=== PATIENT | female | born 1950 | race Caucasian/White ===

== ENCOUNTER 2017-02-08 14:34 | Inpatient (IN) | payer BC ==
--- NOTE | 2017-02-08 14:43 | PDOC ---
History of Present Illness - General History Source: Patient Exam Limitations: No Limitations - History of Present Illness Initial Comments: 02/08/17 15:37 66 y/o F with a PMHx of HTN, diabetes, hypercholesterolemia, AFib, presents to the ED via EMS from home with generalized weakness and dehydration for a few days. Patient reports she recently went to her dentist because her teeth have been falling out. Her dentist told her she needs dentures, which caused her to have an episode of depression. She reports no appetite and has not eaten in a few days since finding out. Patient reports associated nausea and abdominal pain. She denies similar symptoms in the past. On arrival, patient was bradycardic, hypotensive and has a sugar of 50. She denies chest pain, SOB, dizziness. Denies vomiting, diarrhea, constipation. Denies urinary complaints. Denies fever or chills. <Shanice Ann - Last Filed: 02/08/17 15:48> <Simone Ku - Last Filed: 02/08/17 16:26> - General Stated Complaint: WEAKNESS Time Seen by Provider: 02/08/17 14:42 Past History <Shanice Ann - Last Filed: 02/08/17 15:48> - Past Medical History Cardiac Disorders: Yes (AFIB) Diabetes: Yes HTN: Yes Hypercholesterolemia: Yes - Psycho/Social/Smoking Cessation Hx Anxiety: No Suicidal Ideation: No Smoking Status: Yes Smoking History: Never smoked Have you smoked in the past 12 months: No Number of Cigarettes Smoked Daily: 0 Hx Alcohol Use: Yes (WINE W/DINNER) <Simone Ku - Last Filed: 02/08/17 16:26> - Past Medical History Allergies/Adverse Reactions: Allergies Allergy/AdvReac Type Severity Reaction Status Date / Time No Known Allergies Allergy Verified 02/08/17 14:46 Home Medications: Ambulatory Orders Amlodipine Besylate [Norvasc -] 5 mg PO DAILY 11/06/13 Metformin HCl [Glucophage -] 500 mg PO TID 11/06/13 Metoprolol Tartrate 25 mg PO BID 11/06/13 Rosuvastatin Calcium [Crestor] 10 mg PO HS 11/06/13 Valsartan [Diovan] 160 mg PO DAILY 11/06/13 Zolpidem Tartrate [Ambien] 10 mg PO PRN 11/06/13 Diphenoxylate HCl/Atropine [Lomotil Tablet] 1 each PO QID PRN #20 tablet MDD 4 12/14/15 Esomeprazole Magnesium [Nexium 24Hr] 0 mg PO ASDIR 12/14/15 Lorazepam [Ativan] 0.5 mg PO PRN 12/14/15 Ondansetron [Ondansetron Odt] 8 mg PO TID PRN #30 tab.rapdis MDD 3 12/14/15 Review of Systems - Review of Systems Able to Perform ROS?: Yes Comments:: 02/08/17 15:37 GENERAL/CONSTITUTIONAL: (+) generalized weakness, dehydrated, no appetite. No fever or chills. HEAD, EYES, EARS, NOSE AND THROAT: No change in vision. No ear pain or discharge. No sore throat. CARDIOVASCULAR: No chest pain or shortness of breath. RESPIRATORY: No cough, wheezing, or hemoptysis. GASTROINTESTINAL: (+) nausea, abdominal pain. No vomiting, diarrhea or constipation. GENITOURINARY: No dysuria, frequency, or change in urination. MUSCULOSKELETAL: No joint or muscle swelling or pain. No neck or back pain. SKIN: No rash NEUROLOGIC: No headache, vertigo, loss of consciousness, or change in strength/ sensation. ENDOCRINE: No increased thirst. No abnormal weight change. HEMATOLOGIC/LYMPHATIC: No anemia, easy bleeding, or history of blood clots. ALLERGIC/IMMUNOLOGIC: No hives or skin allergy. PSYCHIATRIC: (+) depressed. <Shanice Ann - Last Filed: 02/08/17 15:48> *Physical Exam - Vital Signs Last Vital Signs Temp Pulse Resp BP Pulse Ox 97.3 F L 59 L 18 66/40 96 02/08/17 14:43 02/08/17 14:43 02/08/17 14:43 02/08/17 14:43 02/08/17 14:43 - Physical Exam Comments: 02/08/17 15:37 GENERAL: Awake, alert, and fully oriented, cold, clammy HEAD: No signs of trauma EYES: PERRLA, EOMI, sclera anicteric, conjunctiva clear ENT: Auricles normal inspection, hearing grossly normal, nares patent, oropharynx clear without exudates. Dry mucosa NECK: Normal ROM, supple, no lymphadenopathy, JVD, or masses LUNGS: Breath sounds equal, clear to auscultation bilaterally. No wheezes, and no crackles HEART: Bradycardic rate and rhythm, normal S1 and S2, no murmurs, rubs or gallops ABDOMEN: Soft, nontender, normoactive bowel sounds. No guarding, no rebound. No masses EXTREMITIES: 2+ radial pulses bilaterally. Normal range of motion, no edema. No clubbing or cyanosis. No cords, erythema, or tenderness NEUROLOGICAL: Cranial nerves II through XII grossly intact. Normal speech. SKIN: Warm, Dry, normal turgor, no rashes or lesions noted. <Shanice Ann - Last Filed: 02/08/17 15:48> ED Treatment Course - LABORATORY CBC & Chemistry Diagram: 02/08/17 15:10 02/08/17 15:10 - ADDITIONAL ORDERS Additional order review: Laboratory Results 02/08/17 02/08/17 15:20 15:06 VBG pH 7.19 L* POC VBG pCO2 30.1 L POC VBG pO2 68.4 H Mixed VBG HCO3 11.0 L* POC Glucometer 50.17059 02/08/17 02/08/17 15:10 15:06 RBC 3.72 MCV 92.5 MCHC 33.3 RDW 13.3 MPV 10.1 Neutrophils % 65.3 Lymphocytes % 26.8 D Monocytes % 6.9 Eosinophils % 0.7 Basophils % 0.3 POC Glucometer 50.69167 - RADIOLOGY Radiograph Interpretation: 02/08/17 15:48 Chest X-Ray Reported by Dr. Urvashi Lagos Impression: No evidence of airspace consolidation, pulmonary vascular congestion or pleural effusion. - Medications Given in the ED: ED Medications Discontinued Medications Generic Name Dose Route Start Last Admin Trade Name Freq PRN Reason Stop Dose Admin Dextrose 50 gm 02/08/17 15:08 02/08/17 15:08 D50w (Vial) - IVPUSH 02/08/17 15:09 50 gm NOW ONE Administration <Shanice Ann - Last Filed: 02/08/17 15:48> - LABORATORY CBC & Chemistry Diagram: 02/08/17 15:10 02/08/17 15:10 <Simone Ku - Last Filed: 02/08/17 16:26> Medical Decision Making - Medical Decision Making 02/08/17 16:18 Volume Depleted........ No Hx of Infxn... No Fever... Chemistries Pending but CBC normal WBC no Left Shift CXR Clean Urine without Infxn D/W Dr Chapman D/W Dr Velasco ---> Solucortef one time dose. Admit to ICU. D/W Dr English - <Simone Ku - Last Filed: 02/08/17 16:26> *DC/Admit/Observation/Transfer - Attestations Scribe Attestion: 02/08/17 15:38 Documentation prepared by Shanice Ann, acting as medical dosimetrist for Simone Ku DO. <Shanice Ann - Last Filed: 02/08/17 15:48> - Discharge Dispostion Admit: Yes - Attestations Physician Attestion: 02/08/17 14:43 I, Dr. Simone Ku, attest that this document has been prepared under my direction and personally reviewed by me in its entirety. I further attest, that it accurately reflects all work, treatment, procedures and medical decision -making performed by me. <Simone Ku - Last Filed: 02/08/17 16:26> Diagnosis at time of Disposition: Volume depletion, Lactic acidosis, Hypoglycemia Hypotension Qualifiers: Hypotension type: unspecified hypotension type Qualified Code(s): I95.9 - Hypotension, unspecified - Discharge Dispostion Condition at time of disposition: Improved
[2017-02-08] MEDS ORDERED: SODIUM CHLORIDE 500 ML IV STA ×3 (14:48→16:04)
[2017-02-08] MEDS ORDERED: DEXTROSE 50%-WATER - 25 GM/50 ML VIAL IVPUSH ONE (15:08)
[2017-02-08] MEDS ORDERED: DEXTROSE 50%-WATER 50 ML DISP.SYRIN ONE (15:09)
[2017-02-08 15:33] LABS: BASOPHIL 0.3 % (0-2.0); EOSINOPHIL 0.7 % (0-4.5); MCH 30.9 pg (25.7-33.7); MCHC 33.3 g/dl (32.0-36.0); MEAN CELL VOLUME 92.5 fl (80-96); MEAN PLT VOLUME 10.1 fl (7.5-11.1); NEUTROPHILS 65.3 % (42.8-82.8); PLATELET COUNT 215 K/MM3 (134-434); RDW 13.3 % (11.6-15.6); WHITE BLOOD COUNT 9.7 K/mm3 (4.0-10.0)
[2017-02-08 15:34] LABS: VENOUS PH 7.19 (7.32-7.42)
[2017-02-08 15:48] LABS: INR 1.06 (0.82-1.09); PROTHROMBIN TIME (PATIENT) 11.7 SEC (9.98-11.88)
[2017-02-08 15:59] LABS: ALBUMIN 3.6 g/dl (3.4-5.0); ANION GAP 30 (8-16); CALCIUM 8.4 mg/dL (8.5-10.1); CO2 10 mmol/L (21-32); CREATININE 2.9 mg/dL (0.55-1.02); SGOT/AST 65 U/L (15-37); SGPT/ALT 59 U/L (12-78)
[2017-02-08 16:02] LABS: URINE APPEARANCE CLOUDY; URINE BILIRUBIN NEGATIVE (NEGATIVE); URINE BLOOD 2+ (NEGATIVE); URINE COLOR YELLOW; URINE GLUCOSE (UA) NEGATIVE (NEGATIVE); URINE KETONE NEGATIVE (NEGATIVE); URINE LEUK ESTERASE NEGATIVE (NEGATIVE); URINE NITRITE NEGATIVE (NEGATIVE); URINE UROBILINOGEN NEGATIVE mg/dL (0.2-1.0)
[2017-02-08 16:03] LABS: ALK PHOS 90 U/L (45-117); BILIRUBIN,TOTAL 0.7 mg/dL (0.2-1.0); CPK 215 IU/L (26-192); TROPONIN I < 0.02 ng/ml (0.00-0.05)
[2017-02-08 16:07] LABS: URINE PROTEIN 1+ (NEGATIVE)
[2017-02-08 16:08] LABS: URINE BACTERIA RARE /hpf (NONE SEEN); URINE HYALINE CAST 3 /lpf; URINE WBC 1 /hpf (3-5)
[2017-02-08 16:18] LABS: GLUCOSE,RANDOM 27 mg/dL (74-106)
[2017-02-08] MEDS ORDERED: SODIUM CHLORIDE 1,000 ML IV STA (16:29)
[2017-02-08] MEDS ORDERED: HYDROCORTISONE SOD SUCCINATE 100 MG/2 ML VIAL IVPUSH ONE (16:29)
[2017-02-08] MEDS ORDERED: HYDROCORTISONE SOD SUCCINATE 2 ML ONE (16:41)
[2017-02-08 18:10] VITALS: BMI 29.6
[2017-02-08] MEDS ORDERED: ONDANSETRON 4 MG/2 ML VIAL IVPUSH PRN (21:38)
[2017-02-08] MEDS ORDERED: ZOLPIDEM TARTRATE 5 MG TABLET PO PRN (21:38)
[2017-02-08] MEDS ORDERED: DEXTROSE 5%-NORMAL SALINE 1,000 ML IV SCH (21:45)
[2017-02-08] MEDS: HEPARIN NA (PORCINE) 5,000 UNITS/ML 1ML VIAL SQ SCH (22:05)
--- NOTE | 2017-02-08 22:19 | CONSULT ---
Consult Consult Specialty:: Pulm/CCM Reason for Consultation:: GREGORIO, lactate - History of Present Illness Chief Complaint: weakness History of Present Illness: This is a 66 yo woman HTN, DM: metformin, paroxysmal afib, IBS/UC who present to the ED after 2-3 of decreased po intake, nausea and diarrhea. Patient states over the last few days she hasn't felt like herself and has had persistent nausea and mild diarrhea. She states this is similar to previous flares of her IBS. During this time she has not been eating or drinking but still taking her medications including metformin, lopressor and valsartan. On day of admission she felt very weak and activated EMS. In the ED she was found to be hypoglycemic (50), hypotensive (80/40s) w/ lactic acidosis 9.2. She was given IV fluids. Labs also c/w GREGORIO (SCr 2.9) with AGMA (30). Beside TTE: normal , no DVT seen. CXR w/o focal consolidation, U/A negative for infection. - History Source History Provided By: Patient, Medical Record Limitations to Obtaining History: No Limitations - Past Medical History Gastrointestinal: Yes: Irritable Bowel Disease, Ulcerative Colitis - Alcohol/Substance Use Hx Alcohol Use: Yes (WINE W/DINNER) - Smoking History Smoking history: Never smoked Have you smoked in the past 12 months: No Aproximately how many cigarettes per day: 0 Home Medications - Allergies Allergies/Adverse Reactions: Allergies Allergy/AdvReac Type Severity Reaction Status Date / Time No Known Allergies Allergy Verified 02/08/17 14:46 - Home Medications Home Medications: Ambulatory Orders Metformin HCl [Glucophage -] 500 mg PO TID 11/06/13 Metoprolol Tartrate 25 mg PO BID 11/06/13 Rosuvastatin Calcium [Crestor] 10 mg PO HS 11/06/13 Valsartan [Diovan] 160 mg PO DAILY 11/06/13 Zolpidem Tartrate [Ambien] 10 mg PO PRN 11/06/13 Lorazepam [Ativan] 0.5 mg PO PRN 12/14/15 Family Disease History - Family Disease History Family History: Unremarkable Review of Systems - Review of Systems Constitutional: reports: Loss of Appetite, Malaise, Weakness Cardiovascular: reports: No Symptoms Respiratory: reports: No Symptoms Gastrointestinal: reports: Diarrhea, Nausea Genitourinary: reports: Frequency (decreased) Neurological: reports: Headache Endocrine: reports: No Symptoms Physical Exam Vital Signs: Vital Signs Temperature 97.7 F 02/08/17 17:53 Pulse Rate 75 02/08/17 17:53 Respiratory Rate 14 02/08/17 17:53 Blood Pressure 103/57 02/08/17 17:53 O2 Sat by Pulse Oximetry (%) 99 02/08/17 17:37 Current Medications Heparin Sodium (Porcine) (Heparin -) 5,000 unit SQ TID LESLY Last Admin: 02/08/17 22:05 Dose: 5,000 unit Dextrose/Sodium Chloride (D5-Ns -) 1,000 mls @ 100 mls/hr IV ASDIR LESLY Last Admin: 02/08/17 22:05 Dose: 100 mls/hr Ondansetron HCl (Zofran Injection) 4 mg IVPUSH Q6H PRN PRN Reason: NAUSEA AND/OR VOMITING Last Admin: 02/08/17 22:05 Dose: 4 mg Zolpidem Tartrate (Ambien -) 5 mg PO HS PRN PRN Reason: INSOMNIA Last Admin: 02/08/17 22:05 Dose: 5 mg Constitutional: Yes: Well Nourished, Calm Eyes: Yes: EOM Intact HENT: Yes: Normocephalic Neck: Yes: Trachea Midline Cardiovascular: Yes: Regular Rate and Rhythm, S1, S2 Respiratory: Yes: CTA Bilaterally Gastrointestinal: Yes: Normal Bowel Sounds, Soft, Abdomen, Obese Musculoskeletal: Yes: WNL Extremities: Yes: WNL Edema: No Neurological: Yes: WNL, Alert, Oriented, Cran Nerves II-XII Intact ...Motor Strength: WNL Psychiatric: Yes: Oriented Labs: CBCD WBC 9.7 K/mm3 (4.0-10.0) D 02/08/17 15:10 RBC 3.72 M/mm3 (3.60-5.2) 02/08/17 15:10 Hgb 11.5 GM/dL (10.7-15.3) D 02/08/17 15:10 Hct 34.4 % (32.4-45.2) 02/08/17 15:10 MCV 92.5 fl (80-96) 02/08/17 15:10 MCHC 33.3 g/dl (32.0-36.0) 02/08/17 15:10 RDW 13.3 % (11.6-15.6) 02/08/17 15:10 Plt Count 215 K/MM3 (134-434) 02/08/17 15:10 MPV 10.1 fl (7.5-11.1) 02/08/17 15:10 CMP Sodium 135 mmol/L (136-145) L 02/08/17 15:10 Potassium 3.8 mmol/L (3.5-5.1) 02/08/17 15:10 Chloride 95 mmol/L (98-107) L 02/08/17 15:10 Carbon Dioxide 10 mmol/L (21-32) L D 02/08/17 15:10 Anion Gap 30 (8-16) H 02/08/17 15:10 BUN 49 mg/dL (7-18) H D 02/08/17 15:10 Creatinine 2.9 mg/dL (0.55-1.02) H D 02/08/17 15:10 Creat Clearance w eGFR 16.29 (>60) 02/08/17 15:10 Random Glucose 27 mg/dL (74-106) L* D 02/08/17 15:10 Calcium 8.4 mg/dL (8.5-10.1) L 02/08/17 15:10 Total Bilirubin 0.7 mg/dL (0.2-1.0) 02/08/17 15:10 AST 65 U/L (15-37) H D 02/08/17 15:10 ALT 59 U/L (12-78) D 02/08/17 15:10 Alkaline Phosphatase 90 U/L (45-117) D 02/08/17 15:10 Total Protein 7.0 g/dl (6.4-8.2) 02/08/17 15:10 Albumin 3.6 g/dl (3.4-5.0) 02/08/17 15:10 CARDIAC ENZYMES Creatine Kinase 215 IU/L (26-192) H 02/08/17 15:10 Troponin I < 0.02 ng/ml (0.00-0.05) 02/08/17 15:10 Laboratory Tests 02/08/17 02/08/17 02/08/17 15:10 15:10 19:50 Lactic Acid 9.1 H* 7.9 H* B-Natriuretic Peptide 4.92 H Imaging - Results Chest X-ray: Report Reviewed, Image Reviewed Problem List - Problems (1) Hypoglycemia Code(s): E16.2 - HYPOGLYCEMIA, UNSPECIFIED (2) Hypotension Code(s): I95.9 - HYPOTENSION, UNSPECIFIED Qualifiers: Hypotension type: unspecified hypotension type Qualified Code(s): I95.9 - Hypotension, unspecified (3) Lactic acidosis Code(s): E87.2 - ACIDOSIS (4) Volume depletion Code(s): E86.9 - VOLUME DEPLETION, UNSPECIFIED (5) IBS (irritable bowel syndrome) Code(s): K58.9 - IRRITABLE BOWEL SYNDROME WITHOUT DIARRHEA Assessment/Plan 66 yo woman with HTN, DM, paroxysmal Afib, IBS who presented with weakness found to have GREGORIO, hypoglycemia and lactic acidosis. Patient does not appear infected at this time. Likely flare of IBS c/b dehydrated from poor PO intake w / hypotension, hypoglycemia and lactic acidemia in the setting of continued medications (c/f medication related lactate and hypoglycemia: metformin). GREGORIO likely prerenal +/- medication effect: losartan -no indication for ABX at this time -IV fluids w/ d5 tonight -trend lactate -renal dose all medications -urine lytes -zofran for nausea -cont home ambien -hold antihypertensives -DVT prophylaxis Boerem ACNP Pulm/CCM CCT: 35m
--- NOTE | 2017-02-08 23:58 | CONSULT ---
Consult Consult Specialty:: endocrine Referred by:: Reason for Consultation:: hypoadrenalism/addisons - History of Present Illness Chief Complaint: weakness low bp History of Present Illness: 66 y/o F with a PMHx of HTN, diabetes, hypercholesterolemia, AFib, presents to the ED via EMS from home with generalized weakness and dehydration for a few days. Patient reports she recently went to her dentist because her teeth have been falling out. Her dentist told her she needs dentures, which caused her to have an episode of depression. She reports poor appetite denies history of thyroid problem,salt craving or vomiting - History Source History Provided By: Patient - Past Medical History Gastrointestinal: Yes: Irritable Bowel Disease, Ulcerative Colitis - Alcohol/Substance Use Hx Alcohol Use: Yes (WINE W/DINNER) - Smoking History Smoking history: Never smoked Have you smoked in the past 12 months: No Aproximately how many cigarettes per day: 0 Home Medications - Allergies Allergies/Adverse Reactions: Allergies Allergy/AdvReac Type Severity Reaction Status Date / Time No Known Allergies Allergy Verified 02/08/17 14:46 - Home Medications Home Medications: Ambulatory Orders Metformin HCl [Glucophage -] 500 mg PO TID 11/06/13 Metoprolol Tartrate 25 mg PO BID 11/06/13 Rosuvastatin Calcium [Crestor] 10 mg PO HS 11/06/13 Valsartan [Diovan] 160 mg PO DAILY 11/06/13 Zolpidem Tartrate [Ambien] 10 mg PO PRN 11/06/13 Lorazepam [Ativan] 0.5 mg PO PRN 12/14/15 Review of Systems - Review of Systems Constitutional: reports: Lethargy, Weakness Eyes: reports: No Symptoms HENT: reports: Throat Pain, Toothache Neck: reports: No Symptoms Cardiovascular: reports: Shortness of Breath Respiratory: reports: Exercise Intolerance, SOB on Exertion Gastrointestinal: reports: Bloating, Nausea Genitourinary: reports: No Symptoms Breasts: reports: No Symptoms Reported Musculoskeletal: reports: No Symptoms Integumentary: reports: No Symptoms Neurological: reports: No Symptoms Endocrine: reports: No Symptoms Hematology/Lymphatic: reports: No Symptoms Physical Exam Vital Signs: Vital Signs Temperature 97.6 F 02/08/17 22:00 Pulse Rate 80 02/08/17 22:00 Respiratory Rate 16 02/08/17 22:00 Blood Pressure 95/64 02/08/17 22:00 O2 Sat by Pulse Oximetry (%) 99 02/08/17 20:46 Constitutional: Yes: Anxious Eyes: Yes: EOM Intact HENT: Yes: Normocephalic Neck: Yes: Trachea Midline Cardiovascular: Yes: Regular Rate and Rhythm Respiratory: Yes: CTA Bilaterally Gastrointestinal: Yes: Normal Bowel Sounds, Hyperactive Bowel Sounds ...Rectal Exam: Yes: Deferred Renal/: Yes: WNL Breast(s): Yes: WNL Musculoskeletal: Yes: WNL Extremities: Yes: WNL Edema: No Peripheral Pulses WNL: Yes Neurological: Yes: Alert, Oriented Psychiatric: Yes: Alert, Oriented Problem List - Problems (1) Hypoglycemia Code(s): E16.2 - HYPOGLYCEMIA, UNSPECIFIED (2) Hypotension Code(s): I95.9 - HYPOTENSION, UNSPECIFIED Qualifiers: Hypotension type: unspecified hypotension type Qualified Code(s): I95.9 - Hypotension, unspecified (3) IBS (irritable bowel syndrome) Code(s): K58.9 - IRRITABLE BOWEL SYNDROME WITHOUT DIARRHEA (4) Volume depletion Code(s): E86.9 - VOLUME DEPLETION, UNSPECIFIED (5) Abdominal pain Code(s): R10.9 - UNSPECIFIED ABDOMINAL PAIN Qualifiers: Abdominal location: generalized Qualified Code(s): R10.84 - Generalized abdominal pain (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 - PRIMARY ADRENOCORTICAL INSUFFICIENCY Assessment/Plan Current Active Problems Hypoglycemia (Acute) Hypotension (Acute) IBS (irritable bowel syndrome) (Acute) Lactic acidosis (Acute) Volume depletion (Acute) ruba hypoadrenalism addisons Abnormal Lab Results 02/08/17 02/08/17 02/08/17 15:10 15:10 15:20 VBG pH 7.19 L* POC VBG pCO2 30.1 L POC VBG pO2 68.4 H Mixed VBG HCO3 11.0 L* Sodium 135 L Chloride 95 L Carbon Dioxide 10 L D Anion Gap 30 H BUN 49 H D Creatinine 2.9 H D Random Glucose 27 L* D Lactic Acid 9.1 H* Calcium 8.4 L AST 65 H D Creatine Kinase 215 H CK-MB (CK-2) 4.440 H B-Natriuretic Peptide 2054.92 H Urine Protein Urine Blood Acetone, Qual 02/08/17 02/08/17 02/08/17 15:39 16:06 19:50 VBG pH POC VBG pCO2 POC VBG pO2 Mixed VBG HCO3 Sodium Chloride Carbon Dioxide Anion Gap BUN Creatinine Random Glucose Lactic Acid 7.9 H* Calcium AST Creatine Kinase CK-MB (CK-2) B-Natriuretic Peptide Urine Protein 1+ H D Urine Blood 2+ H Acetone, Qual Positive small 1+ H Laboratory Results - last 24 hr 02/08/17 02/08/17 02/08/17 15:06 15:10 15:10 WBC 9.7 D RBC 3.72 Hgb 11.5 D Hct 34.4 MCV 92.5 MCH 30.9 MCHC 33.3 RDW 13.3 Plt Count 215 MPV 10.1 Neutrophils % 65.3 Lymphocytes % 26.8 D Monocytes % 6.9 Eosinophils % 0.7 Basophils % 0.3 INR 1.06 VBG pH POC VBG pCO2 POC VBG pO2 Mixed VBG HCO3 Sodium Potassium Chloride Carbon Dioxide Anion Gap BUN Creatinine Creat Clearance w eGFR POC Glucometer 50.04077 Random Glucose Lactic Acid Calcium Total Bilirubin AST ALT Alkaline Phosphatase Creatine Kinase Creatine Kinase Index CK-MB (CK-2) Troponin I B-Natriuretic Peptide Total Protein Albumin Lipase TSH Urine Color Urine Appearance Urine pH Ur Specific [place] Urine Protein Urine Glucose (UA) Urine Ketones Urine Blood Urine Nitrite Urine Bilirubin Urine Urobilinogen Ur Leukocyte Esterase Urine RBC Urine WBC Urine Bacteria Hyaline Casts Acetone, Qual 02/08/17 02/08/17 02/08/17 15:10 15:10 15:20 WBC RBC Hgb Hct MCV MCH MCHC RDW Plt Count MPV Neutrophils % Lymphocytes % Monocytes % Eosinophils % Basophils % INR VBG pH 7.19 L* POC VBG pCO2 30.1 L POC VBG pO2 68.4 H Mixed VBG HCO3 11.0 L* Sodium 135 L Potassium 3.8 Chloride 95 L Carbon Dioxide 10 L D Anion Gap 30 H BUN 49 H D Creatinine 2.9 H D Creat Clearance w eGFR 16.29 POC Glucometer Random Glucose 27 L* D Lactic Acid 9.1 H* Calcium 8.4 L Total Bilirubin 0.7 AST 65 H D ALT 59 D Alkaline Phosphatase 90 D Creatine Kinase 215 H Creatine Kinase Index 2.0 CK-MB (CK-2) 4.440 H Troponin I < 0.02 B-Natriuretic Peptide 2054.92 H Total Protein 7.0 Albumin 3.6 Lipase 142 TSH Urine Color Urine Appearance Urine pH Ur Specific [place] Urine Protein Urine Glucose (UA) Urine Ketones Urine Blood Urine Nitrite Urine Bilirubin Urine Urobilinogen Ur Leukocyte Esterase Urine RBC Urine WBC Urine Bacteria Hyaline Casts Acetone, Qual 02/08/17 02/08/17 02/08/17 15:39 16:06 18:29 WBC RBC Hgb Hct MCV MCH MCHC RDW Plt Count MPV Neutrophils % Lymphocytes % Monocytes % Eosinophils % Basophils % INR VBG pH POC VBG pCO2 POC VBG pO2 Mixed VBG HCO3 Sodium Potassium Chloride Carbon Dioxide Anion Gap BUN Creatinine Creat Clearance w eGFR POC Glucometer 72.08480 Random Glucose Lactic Acid Calcium Total Bilirubin AST ALT Alkaline Phosphatase Creatine Kinase Creatine Kinase Index CK-MB (CK-2) Troponin I B-Natriuretic Peptide Total Protein Albumin Lipase TSH Urine Color Yellow Urine Appearance Cloudy Urine pH 5.0 Ur Specific [place] 1.015 Urine Protein 1+ H D Urine Glucose (UA) Negative Urine Ketones Negative Urine Blood 2+ H Urine Nitrite Negative Urine Bilirubin Negative Urine Urobilinogen Negative Ur Leukocyte Esterase Negative Urine RBC None Urine WBC 1 Urine Bacteria Rare Hyaline Casts 3 Acetone, Qual Positive small 1+ H 02/08/17 02/08/17 02/08/17 19:50 19:50 20:26 WBC RBC Hgb Hct MCV MCH MCHC RDW Plt Count MPV Neutrophils % Lymphocytes % Monocytes % Eosinophils % Basophils % INR VBG pH POC VBG pCO2 POC VBG pO2 Mixed VBG HCO3 Sodium Potassium Chloride Carbon Dioxide Anion Gap BUN Creatinine Creat Clearance w eGFR POC Glucometer 84.62429 Random Glucose Lactic Acid 7.9 H* Calcium Total Bilirubin AST ALT Alkaline Phosphatase Creatine Kinase Creatine Kinase Index CK-MB (CK-2) Troponin I B-Natriuretic Peptide Total Protein Albumin Lipase TSH 0.44 Urine Color Urine Appearance Urine pH Ur Specific [place] Urine Protein Urine Glucose (UA) Urine Ketones Urine Blood Urine Nitrite Urine Bilirubin Urine Urobilinogen Ur Leukocyte Esterase Urine RBC Urine WBC Urine Bacteria Hyaline Casts Acetone, Qual 02/08/17 22:18 WBC RBC Hgb Hct MCV MCH MCHC RDW Plt Count MPV Neutrophils % Lymphocytes % Monocytes % Eosinophils % Basophils % INR VBG pH POC VBG pCO2 POC VBG pO2 Mixed VBG HCO3 Sodium Potassium Chloride Carbon Dioxide Anion Gap BUN Creatinine Creat Clearance w eGFR POC Glucometer 104.65498 Random Glucose Lactic Acid Calcium Total Bilirubin AST ALT Alkaline Phosphatase Creatine Kinase Creatine Kinase Index CK-MB (CK-2) Troponin I B-Natriuretic Peptide Total Protein Albumin Lipase TSH Urine Color Urine Appearance Urine pH Ur Specific [place] Urine Protein Urine Glucose (UA) Urine Ketones Urine Blood Urine Nitrite Urine Bilirubin Urine Urobilinogen Ur Leukocyte Esterase Urine RBC Urine WBC Urine Bacteria Hyaline Casts Acetone, Qual impression bilateral adrenal nodules r/o addisons ck cosyntropin stim test cosyntropin .25mc ivpush then draw cortisol 30 and 60 min post iv push ck acth,
[2017-02-09] MEDS ORDERED: COSYNTROPIN 0.25 MG VIAL IVPUSH ONE (00:15)
[2017-02-09 05:49] LABS: MCH 31.6 pg (25.7-33.7); MCHC 34.7 g/dl (32.0-36.0); MEAN CELL VOLUME 91.1 fl (80-96); MEAN PLT VOLUME 9.6 fl (7.5-11.1); PLATELET COUNT 187 K/MM3 (134-434); RDW 13.5 % (11.6-15.6); WHITE BLOOD COUNT 7.6 K/mm3 (4.0-10.0)
[2017-02-09] MEDS: HEPARIN NA (PORCINE) 5,000 UNITS/ML 1ML VIAL SQ SCH (06:18)
[2017-02-09] MEDS: INSULIN SLIDING SCALE (NOVOLOG) 1 VIAL SQ SCH ×2 (06:19→12:01)
[2017-02-09 06:22] LABS: ALBUMIN 3.8 g/dl (3.4-5.0); ANION GAP 19 (8-16); CO2 17 mmol/L (21-32); GLUCOSE,RANDOM 191 mg/dL (74-106)
[2017-02-09 06:25] LABS: ALK PHOS 91 U/L (45-117); BILIRUBIN,TOTAL 0.8 mg/dL (0.2-1.0); CALCIUM 7.5 mg/dL (8.5-10.1); CHOLESTEROL 151 mg/dL (50-200); SGOT/AST 60 U/L (15-37); SGPT/ALT 61 U/L (12-78); TOT PROT 6.9 g/dl (6.4-8.2)
[2017-02-09 06:43] VITALS: TEMP 97.5
--- NOTE | 2017-02-09 08:48 | PN ---
Physical Exam: 24H: AG is closing, lactic acid downtrending Urine studies FeNA 1.5% (intrinsic) SUBJECTIVE: Patient seen and examined in the ICU. Lying comfortable in bed, eating breakfast. No nausea, vomiting, chest pain or sob. OBJECTIVE: Vital Signs Period Temp Pulse Resp BP Sys/Rodríguez Pulse Ox Last 24 Hr 97.4 F-97.7 F 68-88 14-21 88-134/51-77 99-99 Intake & Output 02/06/17 02/07/17 02/08/17 02/09/17 23:59 23:59 23:59 23:59 Intake Total 1440 870 Balance 1440 870 Weight 75.863 kg 73.663 kg GENERAL: The patient is awake, alert, and fully oriented, in no acute distress. EYES: sclera anicteric, conjunctiva clear ENT: poor dentition, moist mucous membranes LUNGS: CTAB HEART: rrr, normal s1/s2, no murmur, rub or gallop ABDOMEN: Soft, diffuse tenderness to deep palpation EXTREMITIES: wwp, 2+ DP pulses, no LE edema CBC, BMP 02/09/17 05:00 02/09/17 05:00 Hepatic Panel Total Bilirubin 0.8 mg/dL (0.2-1.0) 02/09/17 05:00 AST 60 U/L (15-37) H 02/09/17 05:00 ALT 61 U/L (12-78) 02/09/17 05:00 Alkaline Phosphatase 91 U/L (45-117) 02/09/17 05:00 Albumin 3.8 g/dl (3.4-5.0) 02/09/17 05:00 Urine Test Results Urine Color Yellow 02/08/17 15:39 Urine Appearance Cloudy 02/08/17 15:39 Urine pH 5.0 (5.0-8.0) 02/08/17 15:39 Ur Specific [place] 1.015 (1.005-1.025) 02/08/17 15:39 Urine Protein 90 mg/dl 02/09/17 00:02 Urine Glucose (UA) Negative (NEGATIVE) 02/08/17 15:39 Urine Ketones Negative (NEGATIVE) 02/08/17 15:39 Urine Blood 2+ (NEGATIVE) H 02/08/17 15:39 Urine Nitrite Negative (NEGATIVE) 02/08/17 15:39 Urine Bilirubin Negative (NEGATIVE) 02/08/17 15:39 Ur Leukocyte Esterase Negative (NEGATIVE) 02/08/17 15:39 Urine RBC None /hpf (0-3) 02/08/17 15:39 Urine WBC 1 /hpf (3-5) 02/08/17 15:39 Urine Bacteria Rare /hpf (NONE SEEN) 02/08/17 15:39 01/08/13 01/09/13 11/06/13 16:00 10:40 15:30 Creatinine 1.2 0.9 D 0.8 12/14/15 02/08/17 02/09/17 10:15 15:10 05:00 Creatinine 1.8 H D 2.9 H D 2.0 H D Active Medications Heparin Sodium (Porcine) (Heparin -) 5,000 unit SQ TID [facility] Last Admin: 02/09/17 06:18 Dose: 5,000 unit Dextrose/Sodium Chloride (D5-Ns -) 1,000 mls @ 100 mls/hr IV ASDIR [facility] Last Admin: 02/08/17 22:05 Dose: 100 mls/hr Insulin Aspart (Novolog Vial Sliding Scale -) 1 vial SQ [facility] PRN Reason: Protocol Last Admin: 02/09/17 06:19 Dose: 4 units Ondansetron HCl (Zofran Injection) 4 mg IVPUSH Q6H PRN PRN Reason: NAUSEA AND/OR VOMITING Last Admin: 02/08/17 22:05 Dose: 4 mg Zolpidem Tartrate (Ambien -) 5 mg PO HS PRN PRN Reason: INSOMNIA Last Admin: 02/08/17 22:05 Dose: 5 mg ASSESSMENT/PLAN: 66yo woman with PMH of HTN, DM, paroxysmal Afib, IBS who presents with hypoglycemia, lactic acidosis, and GREGORIO vs acute on CKD. #Hypotension A: patient off pressors, HD stable -Continue IVF #Lactic acidosis -Trend lactic acid #GREGORIO vs acute on CKD A: Cr is close to baseline -Continue IVF -Trend Cr #Hypoglycemia A:Blood glucose corrected -ISS -BGM ACHS #FEN -IVF -monitor lytes -diabetic diet as tolerated #PPX -DVT 5000U SQ TID d/w Dr. Aimna Saini, PGY-1 Visit type - Emergency Visit Emergency Visit: No - New Patient This patient is new to me today: Yes Date on this admission: 02/09/17 - Critical Care Critical Care patient: No Total Critical Care Time (in minutes): 35 Critical Care Statement: The care of this patient involved high complexity decision making to prevent further life threatening deterioration of the patient 's condition and/or to evaluate & treat vital organ system(s) failure or risk of failure.
--- NOTE | 2017-02-09 09:03 | EKG ---
Test Reason : Blood Pressure : / mmHG Vent. Rate : 058 BPM Atrial Rate : 058 BPM P-R Int : 162 ms QRS Dur : 096 ms QT Int : 520 ms P-R-T Axes : 077 091 085 degrees QTc Int : 510 ms SINUS BRADYCARDIA RIGHTWARD AXIS PROLONGED QT ABNORMAL ECG WHEN COMPARED WITH ECG OF 14-DEC-2015 10:01, QT HAS LENGTHENED Confirmed by RADHA RICHARDSON MD ([id number]) on 02/09/2017 9:03:01 AM Referred By: Confirmed By:RADHA RICHARDSON MD
[2017-02-09 10:34] VITALS: BP 136/74; PULSE 88
--- NOTE | 2017-02-09 10:35 | HP ---
Admitting History and Physical - Primary Care Physician PCP: Shan Nino - Admission Chief Complaint: FATIGUE/NAUSEA/VOMITING,HYPOGLYCEMIA History of Present Illness: 66 y/o F with a PMHx of HTN, diabetes, hypercholesterolemia, AFib, presents to the ED via EMS from home with generalized weakness and dehydration for a few days. Patient reports she recently went to her dentist because her teeth have been falling out. Her dentist told her she needs dentures, which caused her to have an episode of depression. She reports no appetite and has not eaten in a few days since finding out. Patient reports associated nausea and abdominal pain. She denies similar symptoms in the past. On arrival, patient was bradycardic, hypotensive and has a sugar of 50. She denies chest pain, SOB, dizziness. Denies vomiting, diarrhea, constipation. Denies urinary complaints. Denies fever or chills. History Source: Patient, Medical Record, Transfer Record Limitations to Obtaining History: Clinical Condition - Past Medical History Gastrointestinal: Yes: Irritable Bowel Disease, Ulcerative Colitis - Smoking History Smoking history: Never smoked Have you smoked in the past 12 months: No Aproximately how many cigarettes per day: 0 - Alcohol/Substance Use Hx Alcohol Use: Yes (WINE W/DINNER) Home Medications - Allergies Allergies/Adverse Reactions: Allergies Allergy/AdvReac Type Severity Reaction Status Date / Time No Known Allergies Allergy Verified 02/08/17 14:46 - Home Medications Home Medications: Ambulatory Orders Metformin HCl [Glucophage -] 500 mg PO TID 11/06/13 Metoprolol Tartrate 25 mg PO BID 11/06/13 Rosuvastatin Calcium [Crestor] 10 mg PO HS 11/06/13 Valsartan [Diovan] 160 mg PO DAILY 11/06/13 Zolpidem Tartrate [Ambien] 10 mg PO PRN 11/06/13 Lorazepam [Ativan] 0.5 mg PO PRN 12/14/15 Review of Systems - Review of Systems Constitutional: reports: Loss of Appetite Eyes: reports: No Symptoms HENT: reports: No Symptoms Neck: reports: No Symptoms Cardiovascular: reports: No Symptoms Respiratory: reports: No Symptoms Gastrointestinal: reports: No Symptoms Genitourinary: reports: No Symptoms Musculoskeletal: reports: Muscle Weakness Integumentary: reports: No Symptoms Neurological: reports: No Symptoms Endocrine: reports: No Symptoms Hematology/Lymphatic: reports: No Symptoms Psychiatric: reports: No Symptoms Physical Examination Vital Signs: Vital Signs Temperature 97.5 F L 02/09/17 06:00 Pulse Rate 93 H 02/09/17 09:57 Respiratory Rate 16 02/09/17 09:00 Blood Pressure 129/84 02/09/17 08:00 O2 Sat by Pulse Oximetry (%) 97 02/09/17 09:57 Constitutional: Yes: Mild Distress Eyes: Yes: WNL HENT: Yes: WNL Neck: Yes: WNL Cardiovascular: Yes: WNL Respiratory: Yes: WNL Gastrointestinal: Yes: WNL Renal/: Yes: WNL Musculoskeletal: Yes: WNL Extremities: Yes: WNL Edema: No Peripheral Pulses WNL: Yes Integumentary: Yes: WNL Wound/Incision: Yes: Clean/Dry Neurological: Yes: WNL ...Motor Strength: WNL Labs: CBC, BMP 02/09/17 05:00 02/09/17 05:00 Problem List - Problems (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 ADRENOCORTICAL INSUFFICIENCY (2) Hypoglycemia Code(s): E16.2 - HYPOGLYCEMIA, UNSPECIFIED (3) Hypotension Code(s): I95.9 - HYPOTENSION, UNSPECIFIED Qualifiers: Hypotension type: unspecified hypotension type Qualified Code(s): I95.9 - Hypotension, unspecified (4) IBS (irritable bowel syndrome) Code(s): K58.9 - IRRITABLE BOWEL SYNDROME WITHOUT DIARRHEA (5) Lactic acidosis Code(s): E87.2 - ACIDOSIS (6) Volume depletion Code(s): E86.9 - VOLUME DEPLETION, UNSPECIFIED (7) Gastritis Code(s): K29.70 - GASTRITIS, UNSPECIFIED, WITHOUT BLEEDING Assessment/Plan SEEN IN ER SENT TO ICU SOLUCORTEF X 1 GIVEN, LABS REVIEWED ENDOCRINE CONSULT HYPOGLYCEMIA IVF ABLE TO EAT BUT SLOW DUE TO TEETH DECAY NEURO CHECKS FALL PRECAUTIONS RENAL EVAL
--- NOTE | 2017-02-09 10:46 | DS ---
Physical Examination Vital Signs: Vital Signs Temperature 97.5 F L 02/09/17 10:00 Pulse Rate 88 02/09/17 10:00 Respiratory Rate 15 02/09/17 10:00 Blood Pressure 136/74 02/09/17 10:00 O2 Sat by Pulse Oximetry (%) 97 02/09/17 09:57 Constitutional: Yes: No Distress Eyes: Yes: WNL, Occular Prosthesis Neck: Yes: WNL Cardiovascular: Yes: WNL Respiratory: Yes: WNL Gastrointestinal: Yes: WNL Renal/: Yes: WNL Musculoskeletal: Yes: WNL Extremities: Yes: WNL Edema: No Peripheral Pulses WNL: Yes Integumentary: Yes: WNL Wound/Incision: Yes: Clean/Dry Neurological: Yes: WNL ...Motor Strength: WNL Psychiatric: Yes: WNL Labs: CBC, BMP 02/09/17 05:00 02/09/17 05:00 Discharge Summary Reason For Visit: HYPOVOLEMIC SHOCK Current Active Problems Addisons disease (Acute) Hypoglycemia (Acute) Hypotension (Acute) IBS (irritable bowel syndrome) (Acute) Lactic acidosis (Acute) Volume depletion (Acute) Procedures: Principal: CHEST XRAY Other Procedures: LABS Hospital Course: ADMITTED TO ICU, MONITORED, IVF GIVEN IMPROVED, BGM STABLE, TOLERATING PO DIET, STOP METFORMIN, SEE DR ROBLES NEXT WEEK FOR LABS Condition: Improved - Instructions Diet, Activity, Other Instructions: DIABETIC DIET SEE DR ROBLES NEXT WEEK Referrals: Ruth Robles [Primary Care Provider] - Disposition: HOME - Home Medications Comprehensive Discharge Medication List: Ambulatory Orders Metoprolol Tartrate 25 mg PO BID 11/06/13 Rosuvastatin Calcium [Crestor] 10 mg PO HS 11/06/13 Valsartan [Diovan] 160 mg PO DAILY 11/06/13 Zolpidem Tartrate [Ambien] 10 mg PO PRN 11/06/13 Lorazepam [Ativan] 0.5 mg PO PRN 12/14/15
--- NOTE | 2017-02-09 12:33 | PN ---
Teaching Attending Note Name of Resident: Kasey Saini ATTENDING PHYSICIAN STATEMENT I saw and evaluated the patient. I reviewed the resident's note and discussed the case with the resident. I agree with the resident's findings and plan as documented. SUBJECTIVE: Patient seen and examined in the ICU. Awake and alert. Feels better. No CP or SOB. Baseline IBS issues. Laboratory parameters improving. Intake & Output 02/06/17 02/07/17 02/08/17 02/09/17 23:59 23:59 23:59 23:59 Intake Total 1440 870 Balance 1440 870 Weight 167 lb 4 oz 162 lb 6.4 oz Last Vital Signs Temp Pulse Resp BP Pulse Ox 97.5 F L 88 15 136/74 97 02/09/17 10:00 02/09/17 10:00 02/09/17 10:00 02/09/17 10:00 02/09/17 09:57 Active Medications Heparin Sodium (Porcine) (Heparin -) 5,000 unit SQ TID [facility] Last Admin: 02/09/17 06:18 Dose: 5,000 unit Dextrose/Sodium Chloride (D5-Ns -) 1,000 mls @ 100 mls/hr IV ASDIR [facility] Last Admin: 02/08/17 22:05 Dose: 100 mls/hr Insulin Aspart (Novolog Vial Sliding Scale -) 1 vial SQ [facility] PRN Reason: Protocol Last Admin: 02/09/17 12:01 Dose: 4 units Ondansetron HCl (Zofran Injection) 4 mg IVPUSH Q6H PRN PRN Reason: NAUSEA AND/OR VOMITING Last Admin: 02/08/17 22:05 Dose: 4 mg Zolpidem Tartrate (Ambien -) 5 mg PO HS PRN PRN Reason: INSOMNIA Last Admin: 02/08/17 22:05 Dose: 5 mg Constitutional: Yes: NAD Eyes: Yes: EOM Intact HENT: Yes: Normocephalic Neck: Yes: Trachea Midline Cardiovascular: Yes: Regular Rate and Rhythm, S1, S2 Respiratory: Yes: CTA Bilaterally Gastrointestinal: Yes: Normal Bowel Sounds, Soft, Abdomen, Obese Musculoskeletal: Yes: WNL Extremities: Yes: WNL Edema: No Neurological: Yes: WNL, Alert, Oriented, Non-focal ...Motor Strength: WNL Psychiatric: Yes: Oriented Labs: Laboratory Results - last 24 hr 02/08/17 02/08/17 02/08/17 15:06 15:10 15:10 WBC 9.7 D RBC 3.72 Hgb 11.5 D Hct 34.4 MCV 92.5 MCH 30.9 MCHC 33.3 RDW 13.3 Plt Count 215 MPV 10.1 Neutrophils % 65.3 Lymphocytes % 26.8 D Monocytes % 6.9 Eosinophils % 0.7 Basophils % 0.3 INR 1.06 VBG pH POC VBG pCO2 POC VBG pO2 Mixed VBG HCO3 Sodium Potassium Chloride Carbon Dioxide Anion Gap BUN Creatinine Creat Clearance w eGFR POC Glucometer 50.98150 Random Glucose Hemoglobin A1c % Lactic Acid Calcium Total Bilirubin AST ALT Alkaline Phosphatase Creatine Kinase Creatine Kinase Index CK-MB (CK-2) Troponin I B-Natriuretic Peptide Total Protein Albumin Triglycerides Cholesterol Total LDL Cholesterol HDL Cholesterol Lipase TSH Urine Color Urine Appearance Urine pH Ur Specific [place] Urine Protein Urine Glucose (UA) Urine Ketones Urine Blood Urine Nitrite Urine Bilirubin Urine Urobilinogen Ur Leukocyte Esterase Urine RBC Urine WBC Urine Bacteria Hyaline Casts Ur Random Sodium Ur Random Potassium Ur Random Chloride Urine Creatinine Acetone, Qual 02/08/17 02/08/17 02/08/17 15:10 15:10 15:20 WBC RBC Hgb Hct MCV MCH MCHC RDW Plt Count MPV Neutrophils % Lymphocytes % Monocytes % Eosinophils % Basophils % INR VBG pH 7.19 L* POC VBG pCO2 30.1 L POC VBG pO2 68.4 H Mixed VBG HCO3 11.0 L* Sodium 135 L Potassium 3.8 Chloride 95 L Carbon Dioxide 10 L D Anion Gap 30 H BUN 49 H D Creatinine 2.9 H D Creat Clearance w eGFR 16.29 POC Glucometer Random Glucose 27 L* D Hemoglobin A1c % Lactic Acid 9.1 H* Calcium 8.4 L Total Bilirubin 0.7 AST 65 H D ALT 59 D Alkaline Phosphatase 90 D Creatine Kinase 215 H Creatine Kinase Index 2.0 CK-MB (CK-2) 4.440 H Troponin I < 0.02 B-Natriuretic Peptide 2054.92 H Total Protein 7.0 Albumin 3.6 Triglycerides Cholesterol Total LDL Cholesterol HDL Cholesterol Lipase 142 TSH Urine Color Urine Appearance Urine pH Ur Specific [place] Urine Protein Urine Glucose (UA) Urine Ketones Urine Blood Urine Nitrite Urine Bilirubin Urine Urobilinogen Ur Leukocyte Esterase Urine RBC Urine WBC Urine Bacteria Hyaline Casts Ur Random Sodium Ur Random Potassium Ur Random Chloride Urine Creatinine Acetone, Qual 02/08/17 02/08/17 02/08/17 15:39 16:06 18:29 WBC RBC Hgb Hct MCV MCH MCHC RDW Plt Count MPV Neutrophils % Lymphocytes % Monocytes % Eosinophils % Basophils % INR VBG pH POC VBG pCO2 POC VBG pO2 Mixed VBG HCO3 Sodium Potassium Chloride Carbon Dioxide Anion Gap BUN Creatinine Creat Clearance w eGFR POC Glucometer 72.21320 Random Glucose Hemoglobin A1c % Lactic Acid Calcium Total Bilirubin AST ALT Alkaline Phosphatase Creatine Kinase Creatine Kinase Index CK-MB (CK-2) Troponin I B-Natriuretic Peptide Total Protein Albumin Triglycerides Cholesterol Total LDL Cholesterol HDL Cholesterol Lipase TSH Urine Color Yellow Urine Appearance Cloudy Urine pH 5.0 Ur Specific [place] 1.015 Urine Protein 1+ H D Urine Glucose (UA) Negative Urine Ketones Negative Urine Blood 2+ H Urine Nitrite Negative Urine Bilirubin Negative Urine Urobilinogen Negative Ur Leukocyte Esterase Negative Urine RBC None Urine WBC 1 Urine Bacteria Rare Hyaline Casts 3 Ur Random Sodium Ur Random Potassium Ur Random Chloride Urine Creatinine Acetone, Qual Positive small 1+ H 02/08/17 02/08/17 02/08/17 19:50 19:50 19:50 WBC RBC Hgb Hct MCV MCH MCHC RDW Plt Count MPV Neutrophils % Lymphocytes % Monocytes % Eosinophils % Basophils % INR VBG pH POC VBG pCO2 POC VBG pO2 Mixed VBG HCO3 Sodium Potassium Chloride Carbon Dioxide Anion Gap BUN Creatinine Creat Clearance w eGFR POC Glucometer Random Glucose Hemoglobin A1c % 6.3 H D Lactic Acid 7.9 H* Calcium Total Bilirubin AST ALT Alkaline Phosphatase Creatine Kinase Creatine Kinase Index CK-MB (CK-2) Troponin I B-Natriuretic Peptide Total Protein Albumin Triglycerides Cholesterol Total LDL Cholesterol HDL Cholesterol Lipase TSH 0.44 Urine Color Urine Appearance Urine pH Ur Specific [place] Urine Protein Urine Glucose (UA) Urine Ketones Urine Blood Urine Nitrite Urine Bilirubin Urine Urobilinogen Ur Leukocyte Esterase Urine RBC Urine WBC Urine Bacteria Hyaline Casts Ur Random Sodium Ur Random Potassium Ur Random Chloride Urine Creatinine Acetone, Qual 02/08/17 02/08/17 02/09/17 20:26 22:18 00:02 WBC RBC Hgb Hct MCV MCH MCHC RDW Plt Count MPV Neutrophils % Lymphocytes % Monocytes % Eosinophils % Basophils % INR VBG pH POC VBG pCO2 POC VBG pO2 Mixed VBG HCO3 Sodium Potassium Chloride Carbon Dioxide Anion Gap BUN Creatinine Creat Clearance w eGFR POC Glucometer 84.33869 104.68046 Random Glucose Hemoglobin A1c % Lactic Acid Calcium Total Bilirubin AST ALT Alkaline Phosphatase Creatine Kinase Creatine Kinase Index CK-MB (CK-2) Troponin I B-Natriuretic Peptide Total Protein Albumin Triglycerides Cholesterol Total LDL Cholesterol HDL Cholesterol Lipase TSH Urine Color Urine Appearance Urine pH Ur Specific [place] Urine Protein Urine Glucose (UA) Urine Ketones Urine Blood Urine Nitrite Urine Bilirubin Urine Urobilinogen Ur Leukocyte Esterase Urine RBC Urine WBC Urine Bacteria Hyaline Casts Ur Random Sodium 66 Ur Random Potassium 18.7 Ur Random Chloride 51 Urine Creatinine Acetone, Qual 02/09/17 02/09/17 02/09/17 00:02 00:02 00:34 WBC RBC Hgb Hct MCV MCH MCHC RDW Plt Count MPV Neutrophils % Lymphocytes % Monocytes % Eosinophils % Basophils % INR VBG pH POC VBG pCO2 POC VBG pO2 Mixed VBG HCO3 Sodium Potassium Chloride Carbon Dioxide Anion Gap BUN Creatinine Creat Clearance w eGFR POC Glucometer 130.55856 Random Glucose Hemoglobin A1c % Lactic Acid Calcium Total Bilirubin AST ALT Alkaline Phosphatase Creatine Kinase Creatine Kinase Index CK-MB (CK-2) Troponin I B-Natriuretic Peptide Total Protein Albumin Triglycerides Cholesterol Total LDL Cholesterol HDL Cholesterol Lipase TSH Urine Color Urine Appearance Urine pH Ur Specific [place] Urine Protein 90 Urine Glucose (UA) Urine Ketones Urine Blood Urine Nitrite Urine Bilirubin Urine Urobilinogen Ur Leukocyte Esterase Urine RBC Urine WBC Urine Bacteria Hyaline Casts Ur Random Sodium Ur Random Potassium Ur Random Chloride Urine Creatinine 63.9 Acetone, Qual 02/09/17 02/09/17 02/09/17 00:40 05:00 05:00 WBC 7.6 RBC 3.54 L Hgb 11.2 Hct 32.2 L MCV 91.1 MCH 31.6 MCHC 34.7 RDW 13.5 Plt Count 187 MPV 9.6 Neutrophils % Lymphocytes % Monocytes % Eosinophils % Basophils % INR VBG pH POC VBG pCO2 POC VBG pO2 Mixed VBG HCO3 Sodium 137 Potassium 4.1 Chloride 101 Carbon Dioxide 17 L D Anion Gap 19 H BUN 40 H Creatinine 2.0 H D Creat Clearance w eGFR 25.01 POC Glucometer Random Glucose 191 H D Hemoglobin A1c % Lactic Acid 4.8 H* Calcium 7.5 L Total Bilirubin 0.8 AST 60 H ALT 61 Alkaline Phosphatase 91 Creatine Kinase Creatine Kinase Index CK-MB (CK-2) Troponin I B-Natriuretic Peptide Total Protein 6.9 Albumin 3.8 Triglycerides 152 Cholesterol 151 Total LDL Cholesterol 59 HDL Cholesterol 71 H D Lipase TSH Urine Color Urine Appearance Urine pH Ur Specific [place] Urine Protein Urine Glucose (UA) Urine Ketones Urine Blood Urine Nitrite Urine Bilirubin Urine Urobilinogen Ur Leukocyte Esterase Urine RBC Urine WBC Urine Bacteria Hyaline Casts Ur Random Sodium Ur Random Potassium Ur Random Chloride Urine Creatinine Acetone, Qual 02/09/17 06:01 WBC RBC Hgb Hct MCV MCH MCHC RDW Plt Count MPV Neutrophils % Lymphocytes % Monocytes % Eosinophils % Basophils % INR VBG pH POC VBG pCO2 POC VBG pO2 Mixed VBG HCO3 Sodium Potassium Chloride Carbon Dioxide Anion Gap BUN Creatinine Creat Clearance w eGFR POC Glucometer [phone] Random Glucose Hemoglobin A1c % Lactic Acid Calcium Total Bilirubin AST ALT Alkaline Phosphatase Creatine Kinase Creatine Kinase Index CK-MB (CK-2) Troponin I B-Natriuretic Peptide Total Protein Albumin Triglycerides Cholesterol Total LDL Cholesterol HDL Cholesterol Lipase TSH Urine Color Urine Appearance Urine pH Ur Specific [place] Urine Protein Urine Glucose (UA) Urine Ketones Urine Blood Urine Nitrite Urine Bilirubin Urine Urobilinogen Ur Leukocyte Esterase Urine RBC Urine WBC Urine Bacteria Hyaline Casts Ur Random Sodium Ur Random Potassium Ur Random Chloride Urine Creatinine Acetone, Qual Problem List - Problems (1) Hypoglycemia Code(s): E16.2 - HYPOGLYCEMIA, UNSPECIFIED (2) Hypotension Code(s): I95.9 - HYPOTENSION, UNSPECIFIED Qualifiers: Hypotension type: unspecified hypotension type Qualified Code(s): I95.9 - Hypotension, unspecified (3) Lactic acidosis Code(s): E87.2 - ACIDOSIS (4) Volume depletion Code(s): E86.9 - VOLUME DEPLETION, UNSPECIFIED (5) IBS (irritable bowel syndrome) Code(s): K58.9 - IRRITABLE BOWEL SYNDROME WITHOUT DIARRHEA Assessment/Plan IVF PO as tolearted Follow Lactic acid Monitor off ABX OOB to chair Dr Huynh
== END 2017-02-09 12:36 | disposition home or self-care (01) | DRG 638 ==
LOC: JER 14:34 → JERBED 16:26 → JICU 17:50
PROVIDERS: ADMIT Family Medicine; ATTEND Family Medicine
DX: E11.649 Type 2 diabetes mellitus with hypoglycemia without coma (principal); E27.1 Primary adrenocortical insufficiency; E87.2 Acidosis; E86.0 Dehydration; N17.9 Acute kidney failure, unspecified; Z79.84 Long term (current) use of oral hypoglycemic drugs; I10 Essential (primary) hypertension; E78.00 Pure hypercholesterolemia, unspecified; I48.0 Paroxysmal atrial fibrillation; F50.89 Other specified eating disorder
CPT/HCPCS: 36415; 71010-TC; 80053; 80061; 81003; 81015; 82009; 82436; 82533; 82553; 82570; 82803; 83036; 83605; 83690; 83721; 83880; 84133; 84156; 84300; 84443; 84484; 85025; 85027; 85610; 87040; 87086; 93005; 93010; 99285-25; J0833; J1644

== ENCOUNTER 2017-02-27 20:10 | Emergency (ER) | payer BC ==
[2017-02-27 20:31] VITALS: TEMP 97.5; BMI 24.3
--- NOTE | 2017-02-27 22:07 | PDOC ---
History of Present Illness - General Chief Complaint: Alcohol intoxication Stated Complaint: WEAKNESS Time Seen by Provider: 02/27/17 21:55 History Source: Patient Exam Limitations: No Limitations - History of Present Illness Initial Comments: 02/27/17 22:41 66-year-old female with a history of hypertension, NIDDM, extensive alcohol abuse presents to the emergency department with her ex who states the patient was drinking alcohol all day today to a point where she can't stop. Patient is alert and oriented 3/place, name, date. She denies any headache, dizziness, lightheadedness, nausea/vomiting, fever/chills, visual disturbance, neck pains, back pains, chest pain, shortness of breath, abdominal pains, flank pains, urinary symptoms: Frequency/urgency/hesitancy, hematuria. 0035hrs: Patient is extremely loud and boisterous, cursing/screaming/yelling at staff members and her ex- who decided to leave her in the emergency department after staying he is done helping her. Patient Screaming that she will walk out of the emergency department even after being advised that her alcohol level is 270. Patient was given IM/Haldol 5 mg, Ativan 2 mg, Benadryl 25 mg. Past History - Past Medical History Allergies/Adverse Reactions: Allergies Allergy/AdvReac Type Severity Reaction Status Date / Time No Known Allergies Allergy Verified 02/27/17 20:30 Home Medications: Ambulatory Orders Metoprolol Tartrate 25 mg PO BID 11/06/13 Rosuvastatin Calcium [Crestor] 10 mg PO HS 11/06/13 Valsartan [Diovan] 160 mg PO DAILY 11/06/13 Zolpidem Tartrate [Ambien] 10 mg PO PRN 11/06/13 Lorazepam [Ativan] 0.5 mg PO PRN 12/14/15 Cardiac Disorders: Yes (AFIB) Diabetes: Yes HTN: Yes Hypercholesterolemia: Yes - Immunization History Immunization Up to Date: Yes - Suicide/Smoking/Psychosocial Hx Smoking Status: Yes Smoking History: Never smoked Have you smoked in the past 12 months: No Number of Cigarettes Smoked Daily: 0 Information on smoking cessation initiated: No Hx Alcohol Use: Yes Drug/Substance Use Hx: No Substance Use Type: Alcohol Review of Systems - Review of Systems Able to Perform ROS?: Yes Comments:: 02/28/17 01:12 CONSTITUTIONAL: Absent: fever, chills, diaphoresis, generalized weakness, malaise, loss of appetite HEENT: Absent: rhinorrhea, nasal congestion, throat pain, throat swelling, difficulty swallowing, mouth swelling, ear pain, eye pain, visual Changes CARDIOVASCULAR: Absent: chest pain, loss of consciousness, palpitations, irregular heart rate, peripheral edema RESPIRATORY: Absent: cough, shortness of breath, dyspnea with exertion, orthopnea, wheezing, stridor, hemoptysis GASTROINTESTINAL: Absent: abdominal pain, abdominal distension, nausea, vomiting, diarrhea, constipation, melena, hematochezia GENITOURINARY: Absent: dysuria, frequency, urgency, hesitancy, hematuria, flank pain, genital pain MUSCULOSKELETAL: Absent: myalgia, arthralgia, joint swelling SKIN: Absent: rash, itching, pallor HEMATOLOGIC/IMMUNOLOGIC: Absent: easy bleeding, easy bruising, lymphadenopathy, frequent infections ENDOCRINE: Absent: unexplained weight gain, unexplained weight loss, heat intolerance, cold intolerance NEUROLOGIC: Absent: headache, focal weakness or paresthesias, dizziness, unsteady gait, seizure, mental status changes, bladder or bowel incontinence PSYCHIATRIC: Absent: anxiety, depression, suicidal or homicidal ideation, hallucinations. Is the patient limited Malaysian proficient: No *Physical Exam - Vital Signs Last Vital Signs Temp Pulse Resp BP Pulse Ox 97.5 F L 77 18 124/79 99 02/27/17 20:25 02/27/17 20:25 02/27/17 20:25 02/27/17 20:25 02/27/17 20:25 - Physical Exam Comments: 02/28/17 01:12 GENERAL: Well developed, well nourished. Awake and alert. No acute distress. HEENT: Normocephalic, atraumatic. PERRLA, EOMI. No conjunctival pallor. Sclera are non- icteric. Moist mucous membranes. Oropharynx is clear. NECK: Supple. Full ROM. No JVD. Carotid pulses 2+ and symmetric, without bruits. No thyromegaly. No lymphadenopathy. CARDIOVASCULAR: Regular rate and rhythm. No murmurs, rubs, or gallops. Distal pulses are 2+ and symmetric. PULMONARY: No evidence of respiratory distress. Lungs clear to auscultation bilaterally. No wheezing, rales or rhonchi. ABDOMINAL: Soft. Non-tender. Non-distended. No rebound or guarding. No organomegaly. Normoactive bowel sounds. MUSCULOSKELETAL Normal range of motion at all joints. No bony deformities or tenderness. No CVA tenderness. EXTREMITIES: No cyanosis. No clubbing. No edema. No calf tenderness. SKIN: Warm and dry. Normal capillary refill. No rashes. No jaundice. NEUROLOGICAL: Alert, awake, appropriate. Cranial nerves 2-12 intact. No deficits to light touch and temperature in face, upper extremities and lower extremities. No motor deficits in the in face, upper extremities and lower extremities. Normoreflexic in the upper and lower extremities. Normal speech. Toes are down- going bilaterally. Gait is normal without ataxia. PSYCHIATRIC: Cooperative. Good eye contact. Appropriate mood and affect. ED Treatment Course - LABORATORY CBC & Chemistry Diagram: 02/27/17 23:13 02/27/17 23:13
[2017-02-27 23:30] LABS: BASOPHIL 0.7 % (0-2.0); MCH 30.7 pg (25.7-33.7); MCHC 33.8 g/dl (32.0-36.0); MEAN CELL VOLUME 90.9 fl (80-96); MEAN PLT VOLUME 9.4 fl (7.5-11.1); NEUTROPHILS 52.5 % (42.8-82.8); PLATELET COUNT 227 K/MM3 (134-434); RDW 13.5 % (11.6-15.6); WHITE BLOOD COUNT 7.8 K/mm3 (4.0-10.0)
[2017-02-28 00:03] LABS: ALBUMIN 4.1 g/dl (3.4-5.0); ALK PHOS 113 U/L (45-117); ANION GAP 13 (8-16); BILIRUBIN,TOTAL 0.6 mg/dL (0.2-1.0); CALCIUM 8.8 mg/dL (8.5-10.1); CO2 26 mmol/L (21-32); GLUCOSE,RANDOM 119 mg/dL (74-106); SGOT/AST 82 U/L (15-37); SGPT/ALT 84 U/L (12-78); TOT PROT 7.8 g/dl (6.4-8.2)
[2017-02-28] MEDS ORDERED: HALOPERIDOL LACTATE 5 MG/ML IM ONE (00:57)
[2017-02-28] MEDS ORDERED: HALOPERIDOL LACTATE 5 MG/ML ONE (00:59)
[2017-02-28] MEDS ORDERED: FOLIC ACID INJECTION - 1 MG, THIAMINE HCL 100 MG, MULTIVIT INJECTION ADULT 10 ML in SOD... IVPB ONE (01:38)
--- NOTE | 2017-02-28 06:08 | PDOC ---
*Physical Exam - Vital Signs Last Vital Signs Temp Pulse Resp BP Pulse Ox 97.5 F L 77 18 124/79 99 02/27/17 20:25 02/27/17 20:25 02/27/17 20:25 02/27/17 20:25 02/27/17 20:25 ED Treatment Course - LABORATORY CBC & Chemistry Diagram: 02/27/17 23:13 02/27/17 23:13 - ADDITIONAL ORDERS Additional order review: Laboratory Results 02/28/17 02/27/17 02/27/17 00:27 23:13 23:13 Sodium 141 Potassium 3.5 Chloride 102 Carbon Dioxide 26 D Anion Gap 13 BUN 12 D Creatinine 1.0 D Creat Clearance w eGFR 55.64 Random Glucose 119 H D Lactic Acid 3.0 H* Calcium 8.8 Total Bilirubin 0.6 D AST 82 H D ALT 84 H D Alkaline Phosphatase 113 D Total Protein 7.8 Albumin 4.1 Alcohol, Quantitative 270.0 H* 02/27/17 23:13 RBC 4.02 MCV 90.9 MCHC 33.8 RDW 13.5 MPV 9.4 Neutrophils % 52.5 Lymphocytes % 37.0 D Monocytes % 6.8 Eosinophils % 3.0 D Basophils % 0.7 - Medications Given in the ED: ED Medications Discontinued Medications Generic Name Dose Route Start Last Admin Trade Name Maicol PRN Reason Stop Dose Admin Diphenhydramine HCl 25 mg 02/28/17 00:58 02/28/17 01:10 Benadryl Injection - IM 02/28/17 00:59 25 mg ONCE ONE Administration Haloperidol 5 mg 02/28/17 00:57 02/28/17 01:10 Haldol Injection (Fast Acting) - IM 02/28/17 00:58 5 mg ONCE ONE Administration Lorazepam 2 mg 02/28/17 00:58 02/28/17 01:10 Ativan Injection - IM 02/28/17 00:59 2 mg ONCE ONE Administration Medical Decision Making - Medical Decision Making Pt with history of recent admission for lactic acidosis, sent by PMD for evaluation for weakness. Patient was found to be intoxicated and belligerent on arrival in ED, requiring parenteral meds for sedation. Endorsed to me at 4am, awaiting repeat lactate. The repeat lactate decreased somewhat, but not to a normal level. Chart review showed that 1 liter of fluid was given. I wrote for 2 more liters, however, before they were completed and before repeat lactate, patient stated she wanted to leave AMA. She was counseled of risks of leaving with elevated lactate, she still wished to leave. She is clinically sober and has decision-making capacity. *DC/Admit/Observation/Transfer Diagnosis at time of Disposition: Lactic acidosis Alcohol intoxication Qualifiers: Complication of substance-induced condition: uncomplicated Qualified Code(s): F10.920 - Alcohol use, unspecified with intoxication, uncomplicated - Discharge Dispostion Disposition: AGAINST MEDICAL ADVICE Condition at time of disposition: Stable Admit: No - Referrals Referrals: Ruth Robles [Primary Care Provider] - - Patient Instructions Printed Discharge Instructions: DI for Alcohol Abuse
[2017-02-28] MEDS ORDERED: SODIUM CHLORIDE 2,000 ML IV STA (07:09)
[2017-02-28 12:44] VITALS: BP 110/64; PULSE 72
== END 2017-02-28 10:02 | disposition left against medical advice (07) ==
LOC: JER 20:10
PROC: 3E0 Administration, Physiological Systems and Anatomical Regions, Introduction (ICD-10-PCS; principal; 2017-02-27)
PROC: 3E033GC Introduction of Other Therapeutic Substance into Peripheral Vein, Percutaneous Approach (ICD-10-PCS; 2017-02-27)
PROC: 3E023NZ Introduction of Analgesics, Hypnotics, Sedatives into Muscle, Percutaneous Approach (ICD-10-PCS; 2017-02-27)
PROC: 3E023GC Introduction of Other Therapeutic Substance into Muscle, Percutaneous Approach (ICD-10-PCS; 2017-02-27)
DX: E87.2 Acidosis (principal); F10.920 Alcohol use, unspecified with intoxication, uncomplicated; Y90.8 Blood alcohol level of 240 mg/100 ml or more; I10 Essential (primary) hypertension; Z79.84 Long term (current) use of oral hypoglycemic drugs
CPT/HCPCS: 36415; 80053; 80307; 83605; 85025; 99284-25

== ENCOUNTER 2017-03-10 17:47 | Observation (INO) | payer BC ==
--- NOTE | 2017-03-10 18:14 | PDOC ---
History of Present Illness - General Chief Complaint: Chest Pain Stated Complaint: CHEST PAIN Time Seen by Provider: 03/10/17 18:13 - History of Present Illness Initial Comments: 03/10/17 18:14 Ms. Hobbs is a 66 yo female with a significant past medical history of recent admission for lactic acidosis with coinciding follow-up visit from which she left AMA who presents to the emergency department with abdominal discomfort. She also would like her lactate levels re-checked as well as her blood sugar as she cannot operate her home blood glucose monitor. The patient denies chest pain, shortness of breath, headache and dizziness. Denies fever, chills, nausea, vomit, diarrhea and constipation. Denies dysuria, frequency, urgency and hematuria. Allergies: NKDA Past History - Past Medical History Allergies/Adverse Reactions: Allergies Allergy/AdvReac Type Severity Reaction Status Date / Time No Known Allergies Allergy Verified 03/10/17 17:59 Home Medications: Ambulatory Orders Metoprolol Tartrate 25 mg PO BID 11/06/13 Rosuvastatin Calcium [Crestor] 10 mg PO HS 11/06/13 Valsartan [Diovan] 160 mg PO DAILY 11/06/13 Zolpidem Tartrate [Ambien] 10 mg PO PRN 11/06/13 Lorazepam [Ativan] 0.5 mg PO PRN 12/14/15 Cardiac Disorders: Yes (AFIB) Diabetes: Yes HTN: Yes Hypercholesterolemia: Yes - Immunization History Immunization Up to Date: Yes - Suicide/Smoking/Psychosocial Hx Smoking Status: Yes Smoking History: Never smoked Have you smoked in the past 12 months: No Number of Cigarettes Smoked Daily: 0 Information on smoking cessation initiated: No Hx Alcohol Use: Yes (daily) Drug/Substance Use Hx: No Substance Use Type: None Review of Systems - Review of Systems Comments:: 03/10/17 18:14 GENERAL/CONSTITUTIONAL: No fever or chills. No weakness. HEAD, EYES, EARS, NOSE AND THROAT: No change in vision. No ear pain or discharge. No sore throat. CARDIOVASCULAR: No chest pain or shortness of breath RESPIRATORY: No cough, wheezing, or hemoptysis. GASTROINTESTINAL: +Abdominal tightness reported. No nausea, vomiting, diarrhea or constipation. GENITOURINARY: No dysuria, frequency, or change in urination. MUSCULOSKELETAL: No joint or muscle swelling or pain. No neck or back pain. SKIN: No rash NEUROLOGIC: No headache, vertigo, loss of consciousness, or change in strength/ sensation. ENDOCRINE: No increased thirst. No abnormal weight change HEMATOLOGIC/LYMPHATIC: No anemia, easy bleeding, or history of blood clots. ALLERGIC/IMMUNOLOGIC: No hives or skin allergy. *Physical Exam - Vital Signs Last Vital Signs Temp Pulse Resp BP Pulse Ox 98.2 F 84 18 138/99 99 03/10/17 17:53 03/10/17 17:53 03/10/17 17:53 03/10/17 17:53 03/10/17 17:53 - Physical Exam Comments: 03/10/17 18:14 GENERAL: Awake, alert, and fully oriented, in no acute distress HEAD: No signs of trauma, normocephalic, atraumatic EYES: PERRLA, EOMI, sclera anicteric, conjunctiva clear ENT: Auricles normal inspection, hearing grossly normal, nares patent, oropharynx clear without exudates. Moist mucosa NECK: Normal ROM, supple, no lymphadenopathy, JVD, or masses LUNGS: No distress, speaks full sentences, clear to auscultation bilaterally HEART: Regular rate and rhythm, normal S1 and S2, no murmurs, rubs or gallops, peripheral pulses normal and equal bilaterally. ABDOMEN: +Tender to palpation throughout. Soft, normoactive bowel sounds. No guarding, no rebound. No masses EXTREMITIES: Normal inspection, Normal range of motion, no edema. No clubbing or cyanosis. NEUROLOGICAL: Cranial nerves II through XII grossly intact. Normal speech, normal gait, no focal sensorimotor deficits SKIN: Warm, Dry, normal turgor, no rashes or lesions noted. ED Treatment Course - LABORATORY CBC & Chemistry Diagram: 03/10/17 18:52 03/10/17 18:52 Medical Decision Making - Medical Decision Making 03/10/17 23:06 Patient has elevated AST/ALT levels consistent with alcoholic hepatitis. Patient verbalized understanding of levels and advised to seek detox. Will discharge if Serial troponins both negative. Patient continues to have abdominal pain post ultrasound although ultrasound significant only for possible steatosis with gallbladder sludge and 1 cm stone in right kidney without hydronephrosis. 03/11/17 00:07 Admitting patient for observation and AST/ALT recheck to confirm alcoholic hepatitis diagnosis. *DC/Admit/Observation/Transfer Diagnosis at time of Disposition: Alcoholic hepatitis Qualifiers: Ascites presence: without ascites Qualified Code(s): K70.10 - Alcoholic hepatitis without ascites; K70.10 - Alcoholic hepatitis without ascites - Discharge Dispostion Admit: Yes
[2017-03-10] MEDS ORDERED: THIAMINE HCL 200 MG/2 ML VIAL IVPB ONE (18:54)
[2017-03-10] MEDS ORDERED: ONDANSETRON 4 MG/2 ML VIAL IVPUSH ONE (18:54)
[2017-03-10] MEDS ORDERED: SODIUM CHLORIDE 1,000 ML IV STA (18:54)
[2017-03-10] MEDS ORDERED: FAMOTIDINE 20 MG/50 ML IVPB 50 ML IVPB ONE (18:54)
[2017-03-10 19:06] LABS: BASOPHIL 1.1 % (0-2.0); EOSINOPHIL 2.8 % (0-4.5); MCH 30.8 pg (25.7-33.7); MCHC 33.7 g/dl (32.0-36.0); MEAN CELL VOLUME 91.5 fl (80-96); MEAN PLT VOLUME 9.9 fl (7.5-11.1); NEUTROPHILS 66.9 % (42.8-82.8); PLATELET COUNT 136 K/MM3 (134-434); RDW 13.8 % (11.6-15.6); WHITE BLOOD COUNT 5.1 K/mm3 (4.0-10.0)
[2017-03-10 19:32] LABS: ALBUMIN 4.2 g/dl (3.4-5.0); ANION GAP 15 (8-16); BILIRUBIN,TOTAL 0.9 mg/dL (0.2-1.0); CALCIUM 9.3 mg/dL (8.5-10.1); CO2 25 mmol/L (21-32); CREATININE 1.1 mg/dL (0.55-1.02); GLUCOSE,RANDOM 126 mg/dL (74-106); SGPT/ALT 194 U/L (12-78); TOT PROT 8.4 g/dl (6.4-8.2)
[2017-03-10 19:35] LABS: ALK PHOS 215 U/L (45-117)
[2017-03-10 19:36] LABS: SGOT/AST 315 U/L (15-37)
[2017-03-10 19:37] LABS: CPK 339 IU/L (26-192); TROPONIN I < 0.02 ng/ml (0.00-0.05)
[2017-03-10 19:38] LABS: MAGNESIUM 1.7 mg/dL (1.8-2.4)
--- NOTE | 2017-03-10 20:23 | PDOC ---
Attending Attestation - HPI HPI: 03/10/17 20:45 The patient is a 66 year old female, with a significant past medical history of AFib, hypertension, hyperlipidemia, diabetes, recent admission for lactic acidosis and ETOH abuse, who presents to the emergency department with diffuse abdominal pain, nausea, and vomiting for approximately 2-3 days. - Medical Decision Making 03/10/17 20:45 Documentation prepared by Eloisa Mendez, acting as medical officer for Cleveland Stacy MD. <Eloisa Mendez - Last Filed: 03/10/17 20:45> - Resident Resident Name: Maximilian Polanco - ED Attending Attestation I have performed the following: I have examined & evaluated the patient, The case was reviewed & discussed with the resident, I agree w/resident's findings & plan, Exceptions are as noted - Physicial Exam PE: 03/10/17 21:36 Patient is awake and alert, nontoxic-appearing, hemodynamically stable. EXAMINATION CONSTITUTIONAL: Well-appearing; well-nourished; in no apparent distress HEAD: Normocephalic; atraumatic EYES: PERRL; EOM intact ENMT: External appears normal; normal oropharynx NECK: Supple; non-tender; no cervical lymphadenopathy CARD: Normal S1, S2; no murmurs, rubs, or gallops RESP: Normal chest excursion with respiration; breath sounds clear and equal bilaterally; no wheezes, rhonchi, or rales ABD: Soft, non-distended; + mild ruq ttp; + hepatomegaly; no palpable organomegaly, no palpable hernias EXT: Normal ROM in all four extremities; non-tender to palpation; distal pulses intact SKIN: Warm, dry, no rash NEURO: No focal neurological deficiencies. - Medical Decision Making 03/10/17 22:09 66-year-old female with history of atrial fibrillation, alcohol abuse who presents to the ER with atraumatic abdominal pain. In the ER, patient is awake and alert, nontoxic-appearing, afebrile. Physical exam reveals hepatomegaly and right upper quadrant tenderness. CBC is within normal limit. CMP reveals elevated AST/ALT and alkaline phosphatase. I suspect alcoholic Otitis. Will obtain right upper quadrant ultrasound to evaluate for hepatomegaly. Will reassess. Likely admission. <Cleveland Stacy - Last Filed: 03/10/17 22:10>
[2017-03-10] MEDS ORDERED: morphine CARPU-JECT 2 MG/1 ML DISP.SYRIN IVPUSH ONE (23:05)
[2017-03-10] MEDS ORDERED: MAGNESIUM SULF 50% (8.12 MEQ/2 ML-1 GM VIAL) IVPB ONE (23:19)
[2017-03-11 00:47] LABS: CPK 270 IU/L (26-192); TROPONIN I < 0.02 ng/ml (0.00-0.05)
[2017-03-11] MEDS ORDERED: ONDANSETRON 4 MG/2 ML VIAL IVPB PRN (01:19)
[2017-03-11] MEDS ORDERED: SODIUM CHLORIDE 1,000 ML IV SCH (01:30)
[2017-03-11] MEDS ORDERED: ZOLPIDEM TARTRATE 5 MG TABLET PO PRN (01:30)
[2017-03-11] MEDS ORDERED: MAGNESIUM OXIDE 400 MG TABLET (FP) PO ONE (02:09)
[2017-03-11 03:31] VITALS: BMI 25.2
--- NOTE | 2017-03-11 05:09 | HP ---
CHIEF COMPLAINT: abdominal pain PCP: Dr. Robles HISTORY OF PRESENT ILLNESS: This is a 66 year old female with a past medical history of GERD, hypertension, diabetes mellitus type II, HLD, hx of paroxysmal atrial fibrillation (not on AC) , current every day drinker (three shots per day) who presented to the emergency room with abdominal pain. Patient states that she has had poor oral intake lately due to pain and nausea. Pain is RUQ region, sharp, intermittent, non radiating. She denies fever, chills, vomiting, diarrhea, weight loss, constipation, dark stools. She was recently here 02/18 for treatment of hypoglycemia. ER course was notable for: (1)LA 2.8; AST: 315 [id number] (2)abd US showing possible steatosis Recent Travel: no PAST MEDICAL HISTORY: GERD, Diabetes, Hx of paroxysmal atrial fibrillation (not on AC) due to bleeding as per patient, HTN , alcohol abuse PAST SURGICAL HISTORY: Social History: Smoking:no Alcohol:current every day drinker 3 shots per day Drugs: no Family History: Allergies No Known Allergies Allergy (Verified 03/10/17 17:59) HOME MEDICATIONS: Home Medications Medication Instructions Recorded Metoprolol Tartrate 25 mg PO BID 11/06/13 Rosuvastatin Calcium [Crestor] 10 mg PO HS 11/06/13 Valsartan [Diovan] 160 mg PO DAILY 11/06/13 Zolpidem Tartrate [Ambien] 10 mg PO PRN 11/06/13 Lorazepam [Ativan] 0.5 mg PO PRN 12/14/15 REVIEW OF SYSTEMS CONSTITUTIONAL: Absent: fever, chills, diaphoresis, generalized weakness, malaise, loss of appetite, weight change HEENT: Absent: rhinorrhea, nasal congestion, throat pain, throat swelling, difficulty swallowing, mouth swelling, ear pain, eye pain, visual changes CARDIOVASCULAR: Absent: chest pain, syncope, palpitations, irregular heart rate, lightheadedness , peripheral edema RESPIRATORY: Absent: cough, shortness of breath, dyspnea with exertion, orthopnea, wheezing, stridor, hemoptysis GASTROINTESTINAL: Positive abdominal pain, distention, nausea Absent: vomiting, diarrhea, constipation, melena, hematochezia GENITOURINARY: Absent: dysuria, frequency, urgency, hesitancy, hematuria, flank pain, genital pain MUSCULOSKELETAL: Absent: myalgia, arthralgia, joint swelling, back pain, neck pain SKIN: Absent: rash, itching, pallor HEMATOLOGIC/IMMUNOLOGIC: Absent: easy bleeding, easy bruising, lymphadenopathy, frequent infections ENDOCRINE: Absent: unexplained weight gain, unexplained weight loss, heat intolerance, cold intolerance NEUROLOGIC: Absent: headache, focal weakness or paresthesias, dizziness, unsteady gait, seizure, mental status changes, bladder or bowel incontinence PSYCHIATRIC: Absent: anxiety, depression, suicidal or homicidal ideation, hallucinations. PHYSICAL EXAMINATION Vital Signs - 24 hr 03/11/17 03/11/17 03/11/17 00:52 00:54 02:15 Temperature 97.7 F 98.3 F Pulse Rate 100 H Pulse Rate [ 83 Right Apical] Respiratory 16 16 20 Rate Blood Pressure 154/88 Blood Pressure 129/78 [Left Arm] O2 Sat by Pulse 98 98 98 Oximetry (%) GENERAL: Awake, alert, and fully oriented, in no acute distress. HEAD: Normal with no signs of trauma. EYES: Pupils equal, round and reactive to light, extraocular movements intact, sclera anicteric, conjunctiva clear. No lid lag. EARS, NOSE, THROAT: Ears normal, nares patent, oropharynx clear without exudates. Moist mucous membranes. NECK: Normal range of motion, supple without lymphadenopathy, JVD, or masses. LUNGS: Breath sounds equal, clear to auscultation bilaterally. No wheezes, and no crackles. No accessory muscle use. HEART: Regular rate and rhythm, normal S1 and S2 without murmur, rub or gallop. ABDOMEN: Soft, nontender, not distended, normoactive bowel sounds, no guarding, no rebound, no masses. No hepatomegaly or splenomegaly. MUSCULOSKELETAL: Normal range of motion at all joints. No bony deformities or tenderness. No CVA tenderness. UPPER EXTREMITIES: 2+ pulses, warm, well-perfused. No cyanosis. No clubbing. No peripheral edema. LOWER EXTREMITIES: 2+ pulses, warm, well-perfused. No calf tenderness. No peripheral edema. NEUROLOGICAL: Cranial nerves II-XII intact. Normal speech. Normal gait. PSYCHIATRIC: Cooperative. Good eye contact. Appropriate mood and affect. SKIN: Warm, dry, normal turgor, no rashes or lesions noted, normal capillary refill. Laboratory Results - last 24 hr 03/11/17 03/11/17 03/11/17 00:10 00:10 02:48 POC Glucometer 131 Lactic Acid 0.9 Creatine Kinase 270 H Creatine Kinase Index 0.3 CK-MB (CK-2) 1.016 Troponin I < 0.02 CBC, BMP 03/10/17 18:52 03/10/17 18:52 ASSESSMENT/PLAN: 66 yo female with past medical history of GERD, alcohol abuse daily, presents with abdominal pain, r/o hepatitis. #abdominal pain most likely alcohol hepatitis r/o viral hepatitis -elevated LFT; AST>>ALT -abdominal Us showing possible steatosis, sludge of gallbladder, right kidney stone -trend lft -hepatitis panel A, B, C -hiv screen #alcohol abuse daily drinker: -monitor for signs of withdrawal -last drink was yesterday, no hx of withdrawals or DTs as per patient -Bananna bag due to poor oral intake and alcohol hx -ativan 2mg q6h prn for withdrawal -CIWA score 0 #Hypertension: -cont valsartan 160mg po qd #diabetes mellitus II -insulin ss -bgm achs #hypokalemia: replaced #hypomagnesiemia: replaced #elevated lactic acid; etiology unclear; not in DKA, no infection site, not hypoxix or hypotensive -IVF given , repeat normal FEN: Fluids: NS Electrolytes : as above Diet: diabetic [place] VTE prophlyaxis: scds; GI prophylaxis: protonix Dispo ; observation; trend lft Visit type - Emergency Visit Emergency Visit: Yes ED Registration Date: 03/11/17 Care time: The patient presented to the Emergency Department on the above date and was hospitalized for further evaluation of their emergent condition. - New Patient This patient is new to me today: Yes Date on this admission: 03/11/17 - Critical Care Critical Care patient: No
[2017-03-11] MEDS ORDERED: SODIUM CHLORIDE 1,000 ML IV STA (05:19)
[2017-03-11] MEDS ORDERED: FOLIC ACID INJECTION - 1 MG, THIAMINE HCL 100 MG, MULTIVIT INJECTION ADULT 10 ML in SOD... IVPB ONE (06:00)
[2017-03-11] MEDS: INSULIN SLIDING SCALE (NOVOLOG) 1 VIAL SQ SCH ×4 (06:32→21:04)
[2017-03-11] MEDS: HEPARIN NA (PORCINE) 5,000 UNITS/ML 1ML VIAL SQ SCH ×3 (06:56→21:12)
[2017-03-11] MEDS ORDERED: POTASSIUM CHLORIDE ORAL LIQUID 20 MEQ/15 ML PO ONE (07:07)
--- NOTE | 2017-03-11 07:15 | PN ---
Teaching Attending Note Name of Resident: Samantha Jonas ATTENDING PHYSICIAN STATEMENT I saw and evaluated the patient. I reviewed the resident's note and discussed the case with the resident. I agree with the resident's findings and plan as documented. 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 OBJECTIVE: Gen: A&O in NAD HEENT: EOMI, PERRLA, MMM Lungs: CTA, no Wheezing CVA: RRR, S1,S2 Abd: soft, NT, ND, hawkins negative Ext: nl ROM, no edema Skin: no jaundice, no lesion CBCD WBC 5.1 K/mm3 (4.0-10.0) D 03/10/17 18:52 RBC 3.99 M/mm3 (3.60-5.2) 03/10/17 18:52 Hgb 12.3 GM/dL (10.7-15.3) 03/10/17 18:52 Hct 36.6 % (32.4-45.2) 03/10/17 18:52 MCV 91.5 fl (80-96) 03/10/17 18:52 MCHC 33.7 g/dl (32.0-36.0) 03/10/17 18:52 RDW 13.8 % (11.6-15.6) 03/10/17 18:52 Plt Count 136 K/MM3 (134-434) D 03/10/17 18:52 MPV 9.9 fl (7.5-11.1) 03/10/17 18:52 CMP Sodium 138 mmol/L (136-145) 03/10/17 18:52 Potassium 3.4 mmol/L (3.5-5.1) L 03/10/17 18:52 Chloride 98 mmol/L (98-107) 03/10/17 18:52 Carbon Dioxide 25 mmol/L (21-32) 03/10/17 18:52 Anion Gap 15 (8-16) 03/10/17 18:52 BUN 10 mg/dL (7-18) 03/10/17 18:52 Creatinine 1.1 mg/dL (0.55-1.02) H 03/10/17 18:52 Creat Clearance w eGFR 49.85 (>60) 03/10/17 18:52 Calcium 9.3 mg/dL (8.5-10.1) 03/10/17 18:52 Total Bilirubin 0.9 mg/dL (0.2-1.0) D 03/10/17 18:52 AST 315 U/L (15-37) H D 03/10/17 18:52 ALT 194 U/L (12-78) H D 03/10/17 18:52 Alkaline Phosphatase 215 U/L (45-117) H D 03/10/17 18:52 Total Protein 8.4 g/dl (6.4-8.2) H 03/10/17 18:52 Albumin 4.2 g/dl (3.4-5.0) 03/10/17 18:52 ASSESSMENT AND PLAN: RUQ abdominal pain with h/o alcohol abuse, most likely alcoholic hepatitis, will r/o viral hepatitis, get coag profile to calculate discriminant factor. Diet as tolerated, patient counselled on alcohol cessation. Trend LFts. Hypoglycemia resolved continue to monitorPatient historically signs out AMA, encouraged to stay and complete workup. Problem List - Problems (1) Alcoholic hepatitis Code(s): K70.10 - ALCOHOLIC HEPATITIS WITHOUT ASCITES Qualifiers: Ascites presence: without ascites Qualified Code(s): K70.10 - Alcoholic hepatitis without ascites; K70.10 - Alcoholic hepatitis without ascites (2) Hypoglycemia Code(s): E16.2 - HYPOGLYCEMIA, UNSPECIFIED
[2017-03-11] MEDS ORDERED: POTASSIUM CHLORIDE TABS 20 MEQ TABLET.ER (FP) PO SCH (08:15)
[2017-03-11] MEDS ORDERED: MAGNESIUM SULF 50% (8.12 MEQ/2 ML-1 GM VIAL) IVPB ONE (08:15)
[2017-03-11] MEDS: LORazepam 2 MG/ML SDV VIAL IVPUSH PRN ×2 (08:57→14:23)
[2017-03-11] MEDS: POTASSIUM CHLORIDE TABS 20 MEQ TABLET.ER (FP) PO SCH ×2 (08:57→17:17)
[2017-03-11] MEDS: METOPROLOL TARTRATE 50 MG TABLET (FP) PO SCH ×2 (09:40→21:05)
[2017-03-11] MEDS ORDERED: MAGNESIUM SULF 50% (8.12 MEQ/2 ML-1 GM VIAL) ONE (09:42)
[2017-03-11] MEDS ORDERED: VALSARTAN 160 MG TABLET (UD) PO SCH (10:00)
[2017-03-11] MEDS ORDERED: PT OWN MED DRAWER 7, Y5N ONE ×2 (12:49)
[2017-03-11] MEDS ORDERED: INSULIN (NOVOLOG) ASPART 100 UNITS/ML 10ML VIAL ONE (12:50)
[2017-03-11 15:15] LABS: ALK PHOS 204 U/L (45-117); ANION GAP 10 (8-16); BILIRUBIN,TOTAL 1.1 mg/dL (0.2-1.0); CO2 27 mmol/L (21-32); CREATININE 1.1 mg/dL (0.55-1.02); GLUCOSE,RANDOM 83 mg/dL (74-106); MAGNESIUM 2.5 mg/dL (1.8-2.4); PHOSPHOROUS 1.3 mg/dL (2.5-4.9); SGOT/AST 301 U/L (15-37); SGPT/ALT 178 U/L (12-78); TOT PROT 7.9 g/dl (6.4-8.2)
--- NOTE | 2017-03-11 16:16 | EKG ---
Test Reason : Blood Pressure : / mmHG Vent. Rate : 078 BPM Atrial Rate : 078 BPM P-R Int : 166 ms QRS Dur : 092 ms QT Int : 422 ms P-R-T Axes : 074 086 068 degrees QTc Int : 481 ms BASELINE ARTIFACT NONSPECIFIC ST ABNORMALITY ABNORMAL ECG WHEN COMPARED WITH ECG OF 08-FEB-2017 14:55, NO SIGNIFICANT CHANGE WAS FOUND CLINICAL CORRELATION IS RECOMMENDED Confirmed by BATSHEVA LANGE MD ([id number]) on 03/11/2017 4:15:47 PM Referred By: Confirmed By:BATSHEVA LANGE MD
[2017-03-11] MEDS ORDERED: POTASSIUM CHLORIDE TABS 20 MEQ TABLET.ER (FP) PO ONE (17:15)
[2017-03-11] MEDS: NAPH,MB-DB/K PH,MBDB POWDER PACKET PO SCH ×2 (17:15→21:06)
[2017-03-11] MEDS ORDERED: IBUPROFEN 400 MG TABLET (FP) PO ONE (20:01)
[2017-03-11] MEDS ORDERED: ROSUVASTATIN CA 10 MG TABLET (FP) PO SCH (22:00)
[2017-03-12 01:24] VITALS: BP 142/90; PULSE 79; TEMP 98.4
--- NOTE | 2017-03-12 01:46 | HOSP ---
Physical Examination Vital Signs: Vital Signs Temperature 98.4 F 03/11/17 21:00 Pulse Rate 79 03/11/17 21:00 Respiratory Rate 20 03/11/17 21:00 Blood Pressure 142/90 03/11/17 21:00 O2 Sat by Pulse Oximetry (%) 99 03/12/17 00:00 Labs: CBC, BMP 03/11/17 14:35 Hospitalist Encounter Assessment: called by nurse to come see pt as pt wants to leave. Discussed current condition with pt: risk of worsening LFTs, cirrhosis, gastritis leading to ulcers and possible but unlikely potential for . Pt feels that she must go home at this time to attend to her schizophrenic son who is fighting with his depressed father. She asked if she could come back. Pt advised she would need to be readmitted through the ED. Pt signed out AMA. Advised to f/u with PCP in am.
[2017-03-14 00:06] LABS: HEP B SURFACE AB Non Reactive (.)
== END 2017-03-12 01:31 | disposition left against medical advice (07) ==
LOC: JER 17:47 → SUPCPDRO 17:47 → JERBED 03-11 00:08 → J7W 03-11 03:12
PROVIDERS: ADMIT Internal Medicine; ATTEND Nurse Practitioner Acute Care
PROC: 3E033GC Introduction of Other Therapeutic Substance into Peripheral Vein, Percutaneous Approach (ICD-10-PCS; principal; 2017-03-11)
PROC: 3E0337Z Introduction of Electrolytic and Water Balance Substance into Peripheral Vein, Percutaneous Approach (ICD-10-PCS; 2017-03-11)
PROC: 3E033NZ Introduction of Analgesics, Hypnotics, Sedatives into Peripheral Vein, Percutaneous Approach (ICD-10-PCS; 2017-03-11)
DX: K70.10 Alcoholic hepatitis without ascites (principal); F10.10 Alcohol abuse, uncomplicated; I10 Essential (primary) hypertension; I48.91 Unspecified atrial fibrillation; E11.649 Type 2 diabetes mellitus with hypoglycemia without coma; E78.5 Hyperlipidemia, unspecified; Z79.4 Long term (current) use of insulin; R74.0 Nonspecific elevation of levels of transaminase and lactic acid dehydrogenase [LDH]
CPT/HCPCS: 36415; 71010-TC; 76705-TC; 80053; 82553; 83605; 83690; 83735; 84100; 84484; 85025; 86704; 86706; 86708; 86803; 87340; 93005; 93010; 99285-25; G0378; J1644

== ENCOUNTER 2017-04-18 12:33 | Inpatient (IN) | payer BC, OTHER ==
[2017-04-18] MEDS ORDERED: FOLIC ACID INJECTION - 1 MG, THIAMINE HCL 100 MG, MULTIVIT INJECTION ADULT 10 ML in SOD... IVPB ONE (12:57)
[2017-04-18] MEDS ORDERED: diazePAM CARPU-JECT 10 MG/2 ML DISP.SYRIN IVPUSH ONE (12:58)
--- NOTE | 2017-04-18 13:01 | PDOC ---
History of Present Illness - General Chief Complaint: Weakness Stated Complaint: SICK Time Seen by Provider: 04/18/17 12:46 History Source: Patient - History of Present Illness Timing/Duration: other Associated Symptoms: reports: malaise. denies: cough, fever/chills, nausea/ vomiting Past History - Past Medical History Allergies/Adverse Reactions: Allergies Allergy/AdvReac Type Severity Reaction Status Date / Time No Known Allergies Allergy Verified 04/18/17 12:46 Home Medications: Ambulatory Orders Metoprolol Tartrate 25 mg PO BID 11/06/13 Valsartan [Diovan] 160 mg PO DAILY 11/06/13 Amlodipine Besylate 10 mg PO DAILY 04/18/17 Anemia: No Asthma: No Cancer: No Cardiac Disorders: Yes (AFIB) CVA: No COPD: No CHF: No Dementia: No Diabetes: Yes GI Disorders: No Disorders: No HTN: Yes Hypercholesterolemia: Yes Liver Disease: No Seizures: No Thyroid Disease: No - Surgical History Abdominal Surgery: No Appendectomy: No Cardiac Surgery: No Cholecystectomy: No Lung Surgery: No Neurologic Surgery: No Orthopedic Surgery: No - Immunization History Immunization Up to Date: Yes - Suicide/Smoking/Psychosocial Hx Smoking Status: Yes Smoking History: Never smoked Have you smoked in the past 12 months: No Number of Cigarettes Smoked Daily: 0 Hx Alcohol Use: Yes Drug/Substance Use Hx: No Substance Use Type: Alcohol Hx Substance Use Treatment: No Review of Systems - Review of Systems Constitutional: Yes: Malaise, Weakness. No: Chills, Fever Respiratory: No: Cough, Shortness of Breath Cardiac (ROS): No: Chest Pain ABD/GI: No: Nausea, Vomiting Neurological: No: Headache *Physical Exam - Vital Signs Last Vital Signs Temp Pulse Resp BP Pulse Ox 97.1 F L 88 19 106/76 98 04/18/17 12:40 04/18/17 12:40 04/18/17 12:40 04/18/17 12:40 04/18/17 12:40 - Physical Exam General Appearance: Yes: Appropriately Dressed, Alcohol on Breath. No: Apparent Distress HEENT: positive: Normal Voice Neck: positive: Supple Respiratory/Chest: positive: Lungs Clear, Normal Breath Sounds. negative: Respiratory Distress Cardiovascular: positive: Regular Rate, S1, S2 Extremity: positive: Other (upper ext mildly tremulous) Integumentary: positive: Dry, Warm Neurologic: positive: Alert ED Treatment Course - LABORATORY CBC & Chemistry Diagram: 04/18/17 13:23 04/18/17 13:23 Medical Decision Making - Medical Decision Making 04/18/17 12:58 66-year-old female, history of alcohol abuse, A.fib, not on AC, hypertension, hyperlipidemia, diabetes, here with generalized malaise and weakness. States last ETOH use was several days ago. No CP, SOB, abd pain, n/v/f/c or seizures. Denies any recent trauma See exam Possible mild ETOH withdrawal Not tachy but mildly tremulous in ED No e/o trauma -valium -banana bag -labs -reassess 04/18/17 13:24 04/18/17 13:59 Signed out to resident pending reassessment and labs *DC/Admit/Observation/Transfer Diagnosis at time of Disposition: Alcohol intoxication, Hypokalemia - Discharge Dispostion Condition at time of disposition: Guarded - Referrals - Patient Instructions - Post Discharge Activity
[2017-04-18 13:09] VITALS: BMI 24.9
[2017-04-18] MEDS ORDERED: chlordiazePOXIDE HCL 25 MG CAPSULE PO ONE (13:38)
[2017-04-18 13:50] LABS: BASOPHIL 0.2 % (0-2.0); MCH 30.6 pg (25.7-33.7); MCHC 33.1 g/dl (32.0-36.0); MEAN CELL VOLUME 92.4 fl (80-96); MEAN PLT VOLUME 9.2 fl (7.5-11.1); NEUTROPHILS 84.9 % (42.8-82.8); PLATELET COUNT 234 K/MM3 (134-434); RDW 13.9 % (11.6-15.6); WHITE BLOOD COUNT 10.5 K/mm3 (4.0-10.0)
[2017-04-18 14:21] LABS: ALBUMIN 3.7 g/dl (3.4-5.0); ANION GAP 24 (8-16); BILIRUBIN,TOTAL 0.8 mg/dL (0.2-1.0); CALCIUM 8.7 mg/dL (8.5-10.1); CO2 17 mmol/L (21-32); CREATININE 1.4 mg/dL (0.55-1.02); GLUCOSE,RANDOM 102 mg/dL (74-106); SGOT/AST 215 U/L (15-37); SGPT/ALT 125 U/L (12-78); TOT PROT 7.8 g/dl (6.4-8.2)
[2017-04-18 14:22] LABS: ALK PHOS 160 U/L (45-117)
--- NOTE | 2017-04-18 14:35 | PDOC ---
*Physical Exam - Vital Signs Last Vital Signs Temp Pulse Resp BP Pulse Ox 97.1 F L 88 19 106/76 98 04/18/17 12:40 04/18/17 12:40 04/18/17 12:40 04/18/17 12:40 04/18/17 13:34 - Physical Exam Comments: 04/18/17 14:50 GENERAL: Awake, alert, and intoxicated. HEAD: No signs of trauma, normocephalic, atraumatic EYES: PERRLA, EOMI, sclera anicteric, conjunctiva clear ENT:, hearing grossly normal, oropharynx clear without exudates. Moist mucosa NECK: Normal ROM, no JVD, or masses LUNGS: No distress, speaks full sentences, clear to auscultation bilaterally HEART: Regular rate and rhythm, normal S1 and S2, no murmurs, rubs or gallops, peripheral pulses normal and equal bilaterally. EXTREMITIES : Normal inspection, Normal range of motion, no edema. No clubbing or cyanosis. NEUROLOGICAL: Cranial nerves II through XII grossly intact. Normal speech, normal gait, no focal sensorimotor deficits SKIN: Warm, Dry, normal turgor, no rashes or lesions noted. ED Treatment Course - LABORATORY CBC & Chemistry Diagram: 04/18/17 13:23 04/18/17 13:23 - ADDITIONAL ORDERS Additional order review: Laboratory Results 04/18/17 04/18/17 13:32 13:23 Sodium 140 Potassium 3.1 L Chloride 99 Carbon Dioxide 17 L D Anion Gap 24 H BUN 23 H D Creatinine 1.4 H D Creat Clearance w eGFR 37.74 Random Glucose 102 D Calcium 8.7 Total Bilirubin 0.8 D AST 215 H D ALT 125 H D Alkaline Phosphatase 160 H D Total Protein 7.8 Albumin 3.7 Lipase 115 Alcohol, Quantitative 378.7 H* 04/18/17 13:23 RBC 3.92 MCV 92.4 MCHC 33.1 RDW 13.9 MPV 9.2 Neutrophils % 84.9 H D Lymphocytes % 7.0 L D Monocytes % 7.9 Eosinophils % 0.0 D Basophils % 0.2 - Medications Given in the ED: ED Medications Discontinued Medications Generic Name Dose Route Start Last Admin Trade Name Freq PRN Reason Stop Dose Admin Chlordiazepoxide HCl 50 mg 04/18/17 13:38 04/18/17 13:45 Librium - PO 04/18/17 13:39 50 mg ONCE ONE Administration Diazepam 10 mg 04/18/17 12:58 04/18/17 13:38 Valium Injection - IVPUSH 04/18/17 12:59 Not Given ONCE ONE Medical Decision Making - Medical Decision Making 04/18/17 14:30 66 yo F with h/o of A-fib, HTNm HLD, NIDDM, and alcohol abuse who presents with generalized malaise and weakness. States last alcohol intake use was several days ago. No other complaints, CP, SOB, N/V, F/C, or seizures. Phyiscal exam unremakrable with mild tremors. Hemodynamically stable. Received sign out from Ruben Pearson ED Course Noteable for - Librium 50 mg, NS, Folic acid, Thiamine -CBC, CMP, Serum Alchol EKG: NSR, with RAD/RVH and absent MARIAA, STD, or inverted T waves CBC: Unremarkable CMP: K+ 3.1 AST/ALT: 215/225 CR 1.4 (1.1 Baseline ) 04/18/17 14:41 Alcohol level 378-80 = 298/25= 11.92 hours to metabolize ETOH 04/18/17 14:45 Ativan 1 mg IVP 04/18/17 14:[address] Nino for ETOH detoxication. Med/OBS 04/18/17 16:53 Administered K+ 40 PO, and MG 1 mg IV. Ordered MG, Ph *DC/Admit/Observation/Transfer Diagnosis at time of Disposition: Hypokalemia Alcohol intoxication Qualifiers: Complication of substance-induced condition: uncomplicated Qualified Code(s): F10.920 - Alcohol use, unspecified with intoxication, uncomplicated - Discharge Dispostion Condition at time of disposition: Guarded Admit: Yes - Referrals - Patient Instructions - Post Discharge Activity
--- NOTE | 2017-04-18 14:39 | PDOC ---
*Physical Exam - Vital Signs Last Vital Signs Temp Pulse Resp BP Pulse Ox 97.1 F L 88 19 106/76 98 04/18/17 12:40 04/18/17 12:40 04/18/17 12:40 04/18/17 12:40 04/18/17 13:34 - Physical Exam Comments: 04/18/17 15:07 66yo female with acute alcohol intoxication depression being treated in [place] by a psychiatris drinking more often etoh 387 denies SI/HI 04/18/17 15:08 Gen: awake, intoxicated, emotionally labile HEENT: ecchymosis to R eye, EOMI, PERRL heart: +s1s2 reg Lungs: cta b/l abd: soft, nt/nd +bs ext: no c/c/e neuro: no focal neuro deficits, cn ii-xii grossly intact skin: ecchymosis to R eye ED Treatment Course - LABORATORY CBC & Chemistry Diagram: 04/19/17 07:00 04/19/17 07:00 - ADDITIONAL ORDERS Additional order review: Laboratory Results 04/18/17 04/18/17 13:32 13:23 Sodium 140 Potassium 3.1 L Chloride 99 Carbon Dioxide 17 L D Anion Gap 24 H BUN 23 H D Creatinine 1.4 H D Creat Clearance w eGFR 37.74 Random Glucose 102 D Calcium 8.7 Total Bilirubin 0.8 D AST 215 H D ALT 125 H D Alkaline Phosphatase 160 H D Total Protein 7.8 Albumin 3.7 Lipase 115 Alcohol, Quantitative 378.7 H* 04/18/17 13:23 RBC 3.92 MCV 92.4 MCHC 33.1 RDW 13.9 MPV 9.2 Neutrophils % 84.9 H D Lymphocytes % 7.0 L D Monocytes % 7.9 Eosinophils % 0.0 D Basophils % 0.2 - Medications Given in the ED: ED Medications Discontinued Medications Generic Name Dose Route Start Last Admin Trade Name Freq PRN Reason Stop Dose Admin Chlordiazepoxide HCl 50 mg 04/18/17 13:38 04/18/17 13:45 Librium - PO 04/18/17 13:39 50 mg ONCE ONE Administration Diazepam 10 mg 04/18/17 12:58 04/18/17 13:38 Valium Injection - IVPUSH 04/18/17 12:59 Not Given ONCE ONE Medical Decision Making - Medical Decision Making 04/18/17 15:09 a/p: 66yo female signed out pending labs and further eval of acute alcohol intox -concern given ecchymosis of eye for recent trauma, will add ct head -labs -banana bag replace k check mag given elevated alcohol, metabolism will take [address] in obs. 04/20/17 00:21 discussed the case with DR. Nino who accepts the patient to service. *DC/Admit/Observation/Transfer Diagnosis at time of Disposition: Hypokalemia Alcohol intoxication Qualifiers: Complication of substance-induced condition: uncomplicated Qualified Code(s): F10.920 - Alcohol use, unspecified with intoxication, uncomplicated - Discharge Dispostion Condition at time of disposition: Guarded Admit: Yes - Referrals - Patient Instructions - Post Discharge Activity
[2017-04-18] MEDS ORDERED: POTASSIUM CHLORIDE TABS 20 MEQ TABLET.ER (FP) PO ONE (14:41)
[2017-04-18] MEDS ORDERED: MAGNESIUM SULF 50% (8.12 MEQ/2 ML-1 GM VIAL) IVPB ONE (14:43)
[2017-04-18 15:45] LABS: MAGNESIUM 2.6 mg/dL (1.8-2.4); PHOSPHOROUS 4.6 mg/dL (2.5-4.9)
--- NOTE | 2017-04-18 17:23 | HP ---
Admitting History and Physical - Primary Care Physician PCP: Shan Nino - Admission Chief Complaint: ETOH ABUSE/HYPOKALEMIA/FALL History of Present Illness: 66-year-old female, history of alcohol abuse, A.fib, not on AC, hypertension, hyperlipidemia, diabetes, here with generalized malaise and weakness. States last ETOH use was several days ago. No CP, SOB, abd pain, n/v/f/c or seizures. Denies any recent trauma History Source: Medical Record Limitations to Obtaining History: Poor Historian, Uncooperative - Past Medical History Gastrointestinal: Yes: Irritable Bowel Disease, Ulcerative Colitis - Smoking History Smoking history: Never smoked Have you smoked in the past 12 months: No Aproximately how many cigarettes per day: 0 - Alcohol/Substance Use Hx Alcohol Use: Yes Home Medications - Allergies Allergies/Adverse Reactions: Allergies Allergy/AdvReac Type Severity Reaction Status Date / Time No Known Allergies Allergy Verified 04/18/17 12:46 - Home Medications Home Medications: Ambulatory Orders Metoprolol Tartrate 25 mg PO BID 11/06/13 Valsartan [Diovan] 160 mg PO DAILY 11/06/13 Amlodipine Besylate 10 mg PO DAILY 04/18/17 Review of Systems - Review of Systems Constitutional: reports: Weakness Eyes: reports: Other (ECHYMOSIS) HENT: reports: No Symptoms Neck: reports: No Symptoms Cardiovascular: reports: No Symptoms Respiratory: reports: No Symptoms Gastrointestinal: reports: No Symptoms Genitourinary: reports: No Symptoms Musculoskeletal: reports: No Symptoms Integumentary: reports: Bruising Neurological: reports: Other Endocrine: reports: No Symptoms Hematology/Lymphatic: reports: No Symptoms Psychiatric: reports: Other Physical Examination Vital Signs: Vital Signs Temperature 97.1 F L 04/18/17 12:40 Pulse Rate 90 04/18/17 16:20 Respiratory Rate 18 04/18/17 16:20 Blood Pressure 108/74 04/18/17 16:20 O2 Sat by Pulse Oximetry (%) 97 04/18/17 16:20 Constitutional: Yes: Mild Distress Eyes: Yes: WNL, Other (ECHYMOSIS) HENT: Yes: WNL Neck: Yes: WNL Cardiovascular: Yes: Pulse Irregular Respiratory: Yes: WNL Gastrointestinal: Yes: WNL Renal/: Yes: WNL Musculoskeletal: Yes: Muscle Weakness Extremities: Yes: WNL Edema: No Peripheral Pulses WNL: Yes Integumentary: Yes: Bruising Wound/Incision: Yes: Clean/Dry Neurological: Yes: Other ...Motor Strength: LLE, RLE Psychiatric: Yes: Other Labs: CBC, BMP 04/18/17 13:23 04/18/17 13:23 Problem List - Problems (1) Alcohol intoxication Code(s): F10.929 - ALCOHOL USE, UNSPECIFIED WITH INTOXICATION, UNSPECIFIED Qualifiers: Complication of substance-induced condition: uncomplicated Qualified Code(s ): F10.920 - Alcohol use, unspecified with intoxication, uncomplicated (2) Hypokalemia Code(s): E87.6 - HYPOKALEMIA Assessment/Plan CONSULT WITH DR CAMPBELL DETOX/REHAB [facility] FOLIC ACID [facility] ATIVAN PRN NEUROCHECKS SEIZURE PRECAUTIONS
[2017-04-18] MEDS ORDERED: LORazepam 2 MG/ML SDV VIAL IVPUSH ONE (18:31)
[2017-04-18] MEDS: METOPROLOL TARTRATE 25 MG TABLET (FP) PO SCH ×2 (18:47→20:09)
[2017-04-18] MEDS: THIAMINE HCL 100 MG TABLET (FP) PO SCH ×2 (18:47→20:09)
[2017-04-18] MEDS: PANTOPRAZOLE 40 MG TABLET (FP) PO SCH ×2 (18:47→20:09)
[2017-04-18] MEDS: SODIUM CHLORIDE 1,000 ML IV SCH ×2 (18:47→22:38)
[2017-04-18] MEDS: ACETAMINOPHEN 325 MG TABLET (FP) PO PRN (20:09)
[2017-04-18] MEDS: LORazepam 1 MG TABLET PO PRN (22:38)
[2017-04-19] MEDS ORDERED: LORazepam 1 MG TABLET PO ONE (00:56)
[2017-04-19] MEDS ORDERED: LORazepam 2 MG/ML SDV VIAL IVPUSH ONE (04:30)
[2017-04-19 08:29] LABS: MCH 30.5 pg (25.7-33.7); MCHC 33.4 g/dl (32.0-36.0); MEAN CELL VOLUME 91.3 fl (80-96); MEAN PLT VOLUME 9.4 fl (7.5-11.1); PLATELET COUNT 156 K/MM3 (134-434); RDW 13.5 % (11.6-15.6); WHITE BLOOD COUNT 6.3 K/mm3 (4.0-10.0)
--- NOTE | 2017-04-19 08:53 | CONSULT ---
Consult Detox [facility] Reason for Current Admission/Consult: evaluation of alcohol use disorder and need for detox Referred by:: Gloria Nino MD - History History of Present Illness: 66 yo f with h/o chronic alcoholism reports increase alcohol use over past few weeks because of depression admitted with general malaise and weakness s/p fall injured eye and right shoulder. PMHX A.fib, not on AC, hypertension, hyperlipidemia, diabetes. Alcohol level on day of admission elevated. Has been recieving ativan po and iv but still c/o Alcohol widhrawal sx, tremulous, would like detox. no h/o seizures or DTs reported. librium detox ordered Home Medication List Medication Instructions Recorded Confirmed Type Metoprolol Tartrate 25 mg PO BID 11/06/13 04/18/17 History Valsartan [Diovan] 160 mg PO DAILY 11/06/13 04/18/17 History Amlodipine Besylate 10 mg PO DAILY 04/18/17 04/18/17 History Active Medications Generic Name Dose Route Start Last Admin Trade Name Freq PRN Reason Stop Dose Admin Acetaminophen 650 mg 04/18/17 18:31 04/18/17 20:09 Tylenol - PO 650 mg Q6H PRN Administration FEVER OR PAIN Chlordiazepoxide HCl 50 mg 04/19/17 11:00 Librium - PO 04/20/17 05:01 [id number] LESLY Chlordiazepoxide HCl 25 mg 04/20/17 11:00 Librium - PO 04/21/17 05:01 [id number] LESLY Chlordiazepoxide HCl 15 mg 04/21/17 11:00 Librium - PO 04/22/17 05:01 [id number] LESLY Chlordiazepoxide HCl 25 mg 04/19/17 09:00 Librium - PO 04/22/17 08:59 Q4H PRN WITHDRAWAL(CONT SUBST) Sodium Chloride 1,000 mls @ 83 mls/hr 04/18/17 18:45 04/19/17 10:38 Normal Saline - IV 83 mls/hr ASDIR LESLY Administration Lorazepam 1 mg 04/18/17 18:31 04/19/17 09:45 Ativan - PO 1 mg TID PRN Administration ANXIETY Metoprolol Tartrate 25 mg 04/18/17 18:45 04/19/17 09:38 Lopressor - PO 25 mg BID LESLY Administration Multivitamins/Minerals/Vitamin C 1 tab 04/19/17 10:00 04/19/17 09:37 Tab-A-Vit - PO 1 tab DAILY LESLY Administration Pantoprazole Sodium 40 mg 04/18/17 18:45 04/19/17 09:37 Protonix - PO 40 mg DAILY LESLY Administration Thiamine HCl 100 mg 04/18/17 18:45 04/19/17 09:37 Vitamin B1 - PO 100 mg BID LESLY Administration Valsartan 160 mg 04/19/17 10:00 04/19/17 09:37 Diovan - PO 160 mg DAILY LESLY Administration - History Source History Provided By: Patient, Medical Record, Caregiver Limitations to Obtaining History: No Limitations - Alcohol/Substance Use Hx Alcohol Use: Yes (increasing use from derpession) Hx Substance Use: No Hx Substance Use Treatment: Yes (many years ago, detox and rehab) - Current Drug/Alcohol Use Alcohol Route: Oral Frequency: Daily Amount used: 1/2 gallon vodka every 3 days Age of first use: 20 (increasing use from derpession) Date of Last Use: 04/18/17 - Past Medical History Gastrointestinal: Yes: Irritable Bowel Disease, Ulcerative Colitis CIWA Score - CIWA Score Nausea/Vomitin Muscle Tremors: 4-Moderate,w/Arms Extend Anxiety: 4-Mod. Anxious/Guarded Agitation: 3 Paroxysmal Sweats: 3 Orientation: 0-Oriented Tacttile Disturbances: 0-None Auditory Disturbances: 0-None Visual Disturbances: 0-None Headache: 0-None Present CIWA-Ar Total Score: 17 Assessment Plan - Diagnosis (1) Alcohol dependence with uncomplicated withdrawal Status: Acute (2) Depression Status: Acute - Plan Plan: michael holly reviewed, patient counseled. strt libirum detox as ordered, monitor for signs of withdrawal and give prn medicatons. Patient may be referred to inpatient rehab when medically stable. evaluate trauma to r eye and right shoulder, treat pain. prenatel vitamins and thiamine ordered. Salas Clayton MD [phone] - Medication Detox Regimen/Protocol: Librium
[2017-04-19] MEDS ORDERED: chlordiazePOXIDE HCL 25 MG CAPSULE PO ONE (09:00)
[2017-04-19] MEDS ORDERED: chlordiazePOXIDE HCL 25 MG CAPSULE PO PRN (09:00)
[2017-04-19] MEDS: MULTIVITAMINS (DAILY MVI) TABLET (FP) PO SCH (09:37)
[2017-04-19] MEDS: THIAMINE HCL 100 MG TABLET (FP) PO SCH ×2 (09:37→22:19)
[2017-04-19] MEDS: VALSARTAN 160 MG TABLET (UD) PO SCH (09:37)
[2017-04-19] MEDS: PANTOPRAZOLE 40 MG TABLET (FP) PO SCH (09:37)
[2017-04-19 09:38] LABS: ALBUMIN 3.3 g/dl (3.4-5.0); ALK PHOS 150 U/L (45-117); ANION GAP 12 (8-16); BILIRUBIN,TOTAL 1.6 mg/dL (0.2-1.0); CO2 25 mmol/L (21-32); CREATININE 0.9 mg/dL (0.55-1.02); GLUCOSE,RANDOM 82 mg/dL (74-106); MAGNESIUM 1.7 mg/dL (1.8-2.4); SGOT/AST 158 U/L (15-37); SGPT/ALT 97 U/L (12-78); TOT PROT 6.5 g/dl (6.4-8.2)
[2017-04-19] MEDS: METOPROLOL TARTRATE 25 MG TABLET (FP) PO SCH ×2 (09:38→22:19)
[2017-04-19] MEDS: LORazepam 1 MG TABLET PO PRN ×2 (09:45→22:20)
[2017-04-19] MEDS: SODIUM CHLORIDE 1,000 ML IV SCH ×2 (10:38→22:18)
[2017-04-19] MEDS: chlordiazePOXIDE HCL 25 MG CAPSULE PO SCH ×3 (11:45→22:20)
--- NOTE | 2017-04-19 12:26 | EKG ---
Test Reason : Blood Pressure : / mmHG Vent. Rate : 077 BPM Atrial Rate : 077 BPM P-R Int : 166 ms QRS Dur : 086 ms QT Int : 440 ms P-R-T Axes : 075 094 080 degrees QTc Int : 497 ms POOR DATA QUALITY, INTERPRETATION MAY BE ADVERSELY AFFECTED NORMAL SINUS RHYTHM RIGHTWARD AXIS PROLONGED QT ABNORMAL ECG WHEN COMPARED WITH ECG OF 10-MAR-2017 18:00, NO SIGNIFICANT CHANGE WAS FOUND Confirmed by MARISSA JENKINS MD ([id number]) on 04/19/2017 12:26:10 PM Referred By: Confirmed By:MARISSA JENKINS MD
--- NOTE | 2017-04-19 15:24 | PN ---
Progress Note, Physician Chief Complaint: AWAKE ALERT ETOH WITHDRAWEL SYMPTOMS TACHYCARDIA, ASTERIXIS - Current Medication List Current Medications: Active Medications Acetaminophen (Tylenol -) 650 mg PO Q6H PRN PRN Reason: FEVER OR PAIN Last Admin: 04/18/17 20:09 Dose: 650 mg Chlordiazepoxide HCl (Librium -) 50 mg PO [id number] LESLY Stop: 04/20/17 05:01 Last Admin: 04/19/17 11:45 Dose: 50 mg Chlordiazepoxide HCl (Librium -) 25 mg PO [id number] LESLY Stop: 04/21/17 05:01 Chlordiazepoxide HCl (Librium -) 15 mg PO [id number] LESLY Stop: 04/22/17 05:01 Chlordiazepoxide HCl (Librium -) 25 mg PO Q4H PRN PRN Reason: WITHDRAWAL(CONT SUBST) Stop: 04/22/17 08:59 Last Admin: 04/19/17 14:50 Dose: 25 mg Sodium Chloride (Normal Saline -) 1,000 mls @ 83 mls/hr IV ASDIR [facility] Last Admin: 04/19/17 10:38 Dose: 83 mls/hr Lorazepam (Ativan -) 1 mg PO TID PRN PRN Reason: ANXIETY Last Admin: 04/19/17 09:45 Dose: 1 mg Metoprolol Tartrate (Lopressor -) 25 mg PO BID [facility] Last Admin: 04/19/17 09:38 Dose: 25 mg Multivitamins/Minerals/Vitamin C (Tab-A-Vit -) 1 tab PO DAILY [facility] Last Admin: 04/19/17 09:37 Dose: 1 tab Pantoprazole Sodium (Protonix -) 40 mg PO DAILY [facility] Last Admin: 04/19/17 09:37 Dose: 40 mg Thiamine HCl (Vitamin B1 -) 100 mg PO BID [facility] Last Admin: 04/19/17 09:37 Dose: 100 mg Valsartan (Diovan -) 160 mg PO DAILY [facility] Last Admin: 04/19/17 09:37 Dose: 160 mg - Objective Vital Signs: Vital Signs Temperature 98.7 F 04/19/17 14:17 Pulse Rate 68 04/19/17 14:17 Respiratory Rate 20 04/19/17 14:17 Blood Pressure 134/79 04/19/17 14:17 O2 Sat by Pulse Oximetry (%) 95 04/19/17 10:00 Constitutional: Yes: Mild Distress Eyes: Yes: WNL HENT: Yes: WNL Neck: Yes: WNL Cardiovascular: Yes: WNL Respiratory: Yes: WNL Gastrointestinal: Yes: WNL Genitourinary: Yes: WNL Musculoskeletal: Yes: WNL Extremities: Yes: WNL Edema: No Integumentary: Yes: Bruising Wound/Incision: Yes: Clean/Dry Neurological: Yes: Asterixis ...Motor Strength: WNL Psychiatric: Yes: Other Labs: CBC, BMP 04/19/17 07:00 04/19/17 07:00 Problem List - Problems (1) Alcohol intoxication Code(s): F10.929 - ALCOHOL USE, UNSPECIFIED WITH INTOXICATION, UNSPECIFIED Qualifiers: Complication of substance-induced condition: uncomplicated Qualified Code(s ): F10.920 - Alcohol use, unspecified with intoxication, uncomplicated (2) Hypokalemia Code(s): E87.6 - HYPOKALEMIA (3) Fall Code(s): W19.XXXA - UNSPECIFIED FALL, INITIAL ENCOUNTER Assessment/Plan DETOX CONSULT GLORIA ROBBINS THIAMINE VITAMINS DETOX OUTPATIENT
[2017-04-19] MEDS: ACETAMINOPHEN 325 MG TABLET (FP) PO PRN ×2 (17:04→22:21)
[2017-04-20] MEDS: chlordiazePOXIDE HCL 25 MG CAPSULE PO SCH ×4 (05:09→22:24)
[2017-04-20] MEDS: LORazepam 1 MG TABLET PO PRN (06:23)
[2017-04-20] MEDS: SODIUM CHLORIDE 1,000 ML IV SCH ×3 (11:00→22:24)
--- NOTE | 2017-04-20 11:00 | PN ---
[facility] Progress Note (SOAP) Subjective: condition much improved no tremors, does not like librium Objective: 04/20/17 10:58 Vital Signs - 24 hr 04/19/17 04/19/17 04/19/17 14:17 18:00 21:16 Temperature 98.7 F 98.2 F 99.2 F Pulse Rate 68 74 62 Respiratory 20 20 12 Rate Blood Pressure 134/79 124/79 140/80 O2 Sat by Pulse Oximetry (%) 04/20/17 04/20/17 04/20/17 02:00 06:00 09:54 Temperature 97.9 F 98.1 F 98.6 F Pulse Rate 54 L 63 68 Respiratory 16 16 18 Rate Blood Pressure 146/81 140/88 145/89 O2 Sat by Pulse 96 Oximetry (%) Laboratory Tests 04/18/17 04/18/17 04/18/17 13:23 13:23 13:32 WBC 10.5 H D RBC 3.92 Hgb 12.0 Hct 36.2 MCV 92.4 MCH 30.6 MCHC 33.1 RDW 13.9 Plt Count 234 D MPV 9.2 Neutrophils % 84.9 H D Lymphocytes % 7.0 L D Monocytes % 7.9 Eosinophils % 0.0 D Basophils % 0.2 Sodium 140 Potassium 3.1 L Chloride 99 Carbon Dioxide 17 L D Anion Gap 24 H BUN 23 H D Creatinine 1.4 H D Creat Clearance w eGFR 37.74 Random Glucose 102 D Calcium 8.7 Phosphorus Magnesium Total Bilirubin 0.8 D AST 215 H D ALT 125 H D Alkaline Phosphatase 160 H D Total Protein 7.8 Albumin 3.7 Lipase 115 Alcohol, Quantitative 378.7 H* 04/18/17 04/19/17 04/19/17 15:14 07:00 07:00 WBC 6.3 D RBC 3.24 L Hgb 9.9 L D Hct 29.6 L D MCV 91.3 MCH 30.5 MCHC 33.4 RDW 13.5 Plt Count 156 D MPV 9.4 Neutrophils % Lymphocytes % Monocytes % Eosinophils % Basophils % Sodium 138 Potassium 3.6 Chloride 101 Carbon Dioxide 25 D Anion Gap 12 BUN 22 H Creatinine 0.9 D Creat Clearance w eGFR > 60 Random Glucose 82 Calcium 8.0 L Phosphorus 4.6 D Magnesium 2.6 H 1.7 L D Total Bilirubin 1.6 H D AST 158 H D ALT 97 H D Alkaline Phosphatase 150 H Total Protein 6.5 Albumin 3.3 L Lipase Alcohol, Quantitative anemia and hypokalemia noted, hypoalbuminemia Assessment: 04/20/17 10:59 cont detox, prn librium d/c, supplement k, work up anemia, follow up intensive outpaiten treatment or rehab recommeneded. consider [facility] or [facility] if patient is in agreement. Salas Gonzalez MD [phone]
[2017-04-20] MEDS: VALSARTAN 160 MG TABLET (UD) PO SCH (11:04)
[2017-04-20] MEDS: PANTOPRAZOLE 40 MG TABLET (FP) PO SCH (11:04)
[2017-04-20] MEDS: MULTIVITAMINS (DAILY MVI) TABLET (FP) PO SCH (11:05)
[2017-04-20] MEDS: THIAMINE HCL 100 MG TABLET (FP) PO SCH ×2 (11:05→21:18)
[2017-04-20] MEDS: METOPROLOL TARTRATE 25 MG TABLET (FP) PO SCH ×2 (11:06→21:22)
--- NOTE | 2017-04-20 12:58 | PN ---
Progress Note, Physician Chief Complaint: CHANGED TO INPATIENT - Current Medication List Current Medications: Active Medications Acetaminophen (Tylenol -) 650 mg PO Q6H PRN PRN Reason: FEVER OR PAIN Last Admin: 04/19/17 22:21 Dose: 650 mg Chlordiazepoxide HCl (Librium -) 25 mg PO [id number] [facility] Stop: 04/21/17 05:01 Last Admin: 04/20/17 11:06 Dose: 25 mg Chlordiazepoxide HCl (Librium -) 15 mg PO [id number]-[id number] [facility] Stop: 04/22/17 05:01 Chlordiazepoxide HCl (Librium -) 25 mg PO HS [facility] Sodium Chloride (Normal Saline -) 1,000 mls @ 83 mls/hr IV ASDIR [facility] Last Admin: 04/20/17 11:00 Dose: 83 mls/hr Lorazepam (Ativan -) 1 mg PO TID PRN PRN Reason: ANXIETY Magnesium Oxide (Mag-Ox -) 400 mg PO BID [facility] Metoprolol Tartrate (Lopressor -) 25 mg PO BID [facility] Last Admin: 04/20/17 11:06 Dose: 25 mg Multivitamins/Minerals/Vitamin C (Tab-A-Vit -) 1 tab PO DAILY [facility] Last Admin: 04/20/17 11:05 Dose: 1 tab Pantoprazole Sodium (Protonix -) 40 mg PO DAILY [facility] Last Admin: 04/20/17 11:04 Dose: 40 mg Thiamine HCl (Vitamin B1 -) 100 mg PO BID [facility] Last Admin: 04/20/17 11:05 Dose: 100 mg Valsartan (Diovan -) 160 mg PO DAILY [facility] Last Admin: 04/20/17 11:04 Dose: 160 mg - Objective Vital Signs: Vital Signs Temperature 98.6 F 04/20/17 09:54 Pulse Rate 68 04/20/17 09:54 Respiratory Rate 18 04/20/17 09:54 Blood Pressure 145/89 04/20/17 09:54 O2 Sat by Pulse Oximetry (%) 96 04/20/17 02:00 Constitutional: Yes: Mild Distress Eyes: Yes: WNL HENT: Yes: WNL Neck: Yes: WNL Cardiovascular: Yes: WNL Respiratory: Yes: WNL Gastrointestinal: Yes: WNL Genitourinary: Yes: WNL Musculoskeletal: Yes: WNL Extremities: Yes: WNL Edema: No Peripheral Pulses WNL: Yes Integumentary: Yes: Bruising Wound/Incision: Yes: Clean/Dry Neurological: Yes: Asterixis ...Motor Strength: WNL Psychiatric: Yes: Other Labs: CBC, BMP 04/19/17 07:00 04/19/17 07:00 Problem List - Problems (1) Alcohol intoxication Code(s): F10.929 - ALCOHOL USE, UNSPECIFIED WITH INTOXICATION, UNSPECIFIED Qualifiers: Complication of substance-induced condition: uncomplicated Qualified Code(s ): F10.920 - Alcohol use, unspecified with intoxication, uncomplicated (2) Hypokalemia Code(s): E87.6 - HYPOKALEMIA Assessment/Plan DETOX CONSULT GLORIA ROBBINS THIAMINE VITAMINS DETOX OUTPATIENT
[2017-04-20] MEDS: ACETAMINOPHEN 325 MG TABLET (FP) PO PRN (14:01)
[2017-04-20] MEDS: MAGNESIUM OXIDE 400 MG TABLET (FP) PO SCH ×2 (14:02→21:18)
[2017-04-20] MEDS ORDERED: chlordiazePOXIDE HCL 25 MG CAPSULE PO SCH (22:00)
[2017-04-21] MEDS: chlordiazePOXIDE HCL 25 MG CAPSULE PO SCH (05:54)
[2017-04-21] MEDS: LORazepam 1 MG TABLET PO PRN (05:55)
[2017-04-21] MEDS ORDERED: PT OWN MED DRAWER 7, Y5N ONE (10:56)
[2017-04-21] MEDS: ACETAMINOPHEN 325 MG TABLET (FP) PO PRN (10:57)
[2017-04-21] MEDS: MULTIVITAMINS (DAILY MVI) TABLET (FP) PO SCH (10:57)
[2017-04-21] MEDS: PANTOPRAZOLE 40 MG TABLET (FP) PO SCH (10:57)
[2017-04-21] MEDS: THIAMINE HCL 100 MG TABLET (FP) PO SCH ×2 (10:57→22:20)
[2017-04-21] MEDS: MAGNESIUM OXIDE 400 MG TABLET (FP) PO SCH ×2 (10:58→22:20)
[2017-04-21] MEDS: VALSARTAN 160 MG TABLET (UD) PO SCH (10:58)
[2017-04-21] MEDS: METOPROLOL TARTRATE 25 MG TABLET (FP) PO SCH ×2 (10:58→22:20)
[2017-04-21] MEDS: chlordiazePOXIDE 5 MG CAPSULE PO SCH ×3 (10:58→22:20)
[2017-04-21] MEDS: SODIUM CHLORIDE 1,000 ML IV SCH ×3 (10:59→22:19)
--- NOTE | 2017-04-21 10:59 | PN ---
Progress Note, Physician Chief Complaint: CHANGED TO INPATIENT AWAKE ALERT FEELING BETTER - Current Medication List Current Medications: Active Medications Acetaminophen (Tylenol -) 650 mg PO Q6H PRN PRN Reason: FEVER OR PAIN Last Admin: 04/20/17 14:01 Dose: 650 mg Chlordiazepoxide HCl (Librium -) 15 mg PO [id number] [facility] Stop: 04/22/17 05:01 Sodium Chloride (Normal Saline -) 1,000 mls @ 83 mls/hr IV ASDIR [facility] Last Admin: 04/20/17 22:24 Dose: 83 mls/hr Lorazepam (Ativan -) 1 mg PO TID PRN PRN Reason: ANXIETY Last Admin: 04/21/17 05:55 Dose: 1 mg Magnesium Oxide (Mag-Ox -) 400 mg PO BID [facility] Last Admin: 04/20/17 21:18 Dose: 400 mg Metoprolol Tartrate (Lopressor -) 25 mg PO BID [facility] Last Admin: 04/20/17 21:22 Dose: 25 mg Multivitamins/Minerals/Vitamin C (Tab-A-Vit -) 1 tab PO DAILY [facility] Last Admin: 04/20/17 11:05 Dose: 1 tab Pantoprazole Sodium (Protonix -) 40 mg PO DAILY [facility] Last Admin: 04/20/17 11:04 Dose: 40 mg Thiamine HCl (Vitamin B1 -) 100 mg PO BID [facility] Last Admin: 04/20/17 21:18 Dose: 100 mg Valsartan (Diovan -) 160 mg PO DAILY [facility] Last Admin: 04/20/17 11:04 Dose: 160 mg - Objective Vital Signs: Vital Signs Temperature 98.2 F 04/21/17 06:00 Pulse Rate 56 L 04/21/17 06:00 Respiratory Rate 18 04/21/17 06:00 Blood Pressure 143/80 04/21/17 06:00 O2 Sat by Pulse Oximetry (%) 96 04/20/17 22:00 Constitutional: Yes: Mild Distress Eyes: Yes: WNL HENT: Yes: WNL Neck: Yes: WNL Cardiovascular: Yes: WNL Respiratory: Yes: WNL Gastrointestinal: Yes: WNL Genitourinary: Yes: WNL Musculoskeletal: Yes: WNL Extremities: Yes: WNL Edema: No Peripheral Pulses WNL: Yes Integumentary: Yes: Bruising Wound/Incision: Yes: Clean/Dry Neurological: Yes: Asterixis ...Motor Strength: WNL Psychiatric: Yes: WNL Labs: CBC, BMP 04/19/17 07:00 04/19/17 07:00 Problem List - Problems (1) Alcohol intoxication Code(s): F10.929 - ALCOHOL USE, UNSPECIFIED WITH INTOXICATION, UNSPECIFIED Qualifiers: Complication of substance-induced condition: uncomplicated Qualified Code(s ): F10.920 - Alcohol use, unspecified with intoxication, uncomplicated (2) Hypokalemia Code(s): E87.6 - HYPOKALEMIA Assessment/Plan MUCH MORE OSMAN TODAY APP[employer]ITE [employer]OVING ATIVAN PRN DETOX ETOH OUTPATIENT
[2017-04-21 12:13] LABS: MCH 30.6 pg (25.7-33.7); MCHC 33.2 g/dl (32.0-36.0); MEAN CELL VOLUME 92.2 fl (80-96); MEAN PLT VOLUME 10.2 fl (7.5-11.1); PLATELET COUNT 128 K/MM3 (134-434); RDW 13.4 % (11.6-15.6); WHITE BLOOD COUNT 5.3 K/mm3 (4.0-10.0)
[2017-04-21 12:37] LABS: ALBUMIN 3.4 g/dl (3.4-5.0); ALK PHOS 149 U/L (45-117); ANION GAP 11 (8-16); BILIRUBIN,TOTAL 1.3 mg/dL (0.2-1.0); CALCIUM 7.9 mg/dL (8.5-10.1); CO2 26 mmol/L (21-32); CREATININE 0.7 mg/dL (0.55-1.02); GLUCOSE,RANDOM 124 mg/dL (74-106); SGOT/AST 119 U/L (15-37); SGPT/ALT 100 U/L (12-78); TOT PROT 6.8 g/dl (6.4-8.2)
[2017-04-22] MEDS: chlordiazePOXIDE 5 MG CAPSULE PO SCH (05:16)
--- NOTE | 2017-04-22 10:39 | PN ---
Progress Note, Physician Chief Complaint: AWAKE ALERT FEELING BETTER - Current Medication List Current Medications: Active Medications Acetaminophen (Tylenol -) 650 mg PO Q6H PRN PRN Reason: FEVER OR PAIN Last Admin: 04/21/17 10:57 Dose: 650 mg Sodium Chloride (Normal Saline -) 1,000 mls @ 83 mls/hr IV ASDIR [facility] Last Admin: 04/21/17 22:19 Dose: 83 mls/hr Lorazepam (Ativan -) 1 mg PO TID PRN PRN Reason: ANXIETY Last Admin: 04/21/17 05:55 Dose: 1 mg Magnesium Oxide (Mag-Ox -) 400 mg PO BID [facility] Last Admin: 04/21/17 22:20 Dose: 400 mg Metoprolol Tartrate (Lopressor -) 25 mg PO BID [facility] Last Admin: 04/21/17 22:20 Dose: 25 mg Multivitamins/Minerals/Vitamin C (Tab-A-Vit -) 1 tab PO DAILY [facility] Last Admin: 04/21/17 10:57 Dose: 1 tab Pantoprazole Sodium (Protonix -) 40 mg PO DAILY [facility] Last Admin: 04/21/17 10:57 Dose: 40 mg Thiamine HCl (Vitamin B1 -) 100 mg PO BID [facility] Last Admin: 04/21/17 22:20 Dose: 100 mg Valsartan (Diovan -) 160 mg PO DAILY [facility] Last Admin: 04/21/17 10:58 Dose: 160 mg - Objective Vital Signs: Vital Signs Temperature 98.3 F 04/21/17 18:05 Pulse Rate 62 04/22/17 05:18 Respiratory Rate 18 04/22/17 05:18 Blood Pressure 157/97 04/22/17 05:18 O2 Sat by Pulse Oximetry (%) 96 04/21/17 22:00 Constitutional: Yes: Mild Distress Eyes: Yes: WNL HENT: Yes: WNL Neck: Yes: WNL Cardiovascular: Yes: WNL Respiratory: Yes: WNL Gastrointestinal: Yes: WNL Genitourinary: Yes: WNL Musculoskeletal: Yes: WNL Extremities: Yes: WNL Edema: No Peripheral Pulses WNL: Yes Integumentary: Yes: Bruising Wound/Incision: Yes: Clean/Dry Neurological: Yes: WNL ...Motor Strength: WNL Psychiatric: Yes: WNL Labs: CBC, BMP 04/21/17 12:05 04/21/17 12:05 Problem List - Problems (1) Alcohol intoxication Code(s): F10.929 - ALCOHOL USE, UNSPECIFIED WITH INTOXICATION, UNSPECIFIED Qualifiers: Complication of substance-induced condition: uncomplicated Qualified Code(s ): F10.920 - Alcohol use, unspecified with intoxication, uncomplicated (2) Hypokalemia Code(s): E87.6 - HYPOKALEMIA Assessment/Plan REPLETE KCL REPEAT LEVEL MAG LEVEL LIBRIUM TAPER ATIVAN PRN DETOX OUTPATIENT
[2017-04-22] MEDS ORDERED: POTASSIUM CHLORIDE TABS 20 MEQ TABLET.ER (FP) PO ONE ×2 (10:45→20:00)
[2017-04-22] MEDS: MULTIVITAMINS (DAILY MVI) TABLET (FP) PO SCH (10:51)
[2017-04-22] MEDS: VALSARTAN 160 MG TABLET (UD) PO SCH (10:52)
[2017-04-22] MEDS: METOPROLOL TARTRATE 25 MG TABLET (FP) PO SCH ×2 (10:52→21:28)
[2017-04-22] MEDS: MAGNESIUM OXIDE 400 MG TABLET (FP) PO SCH ×2 (10:52→21:28)
[2017-04-22] MEDS: PANTOPRAZOLE 40 MG TABLET (FP) PO SCH (10:53)
[2017-04-22 11:38] LABS: ANION GAP 10 (8-16); CALCIUM 8.6 mg/dL (8.5-10.1); CO2 28 mmol/L (21-32); CREATININE 0.7 mg/dL (0.55-1.02); GLUCOSE,RANDOM 155 mg/dL (74-106); MAGNESIUM 1.4 mg/dL (1.8-2.4)
[2017-04-22] MEDS: SODIUM CHLORIDE 1,000 ML IV SCH ×2 (11:49→21:28)
[2017-04-22] MEDS: THIAMINE HCL 100 MG TABLET (FP) PO SCH ×2 (11:52→21:28)
[2017-04-22] MEDS: ACETAMINOPHEN 325 MG TABLET (FP) PO PRN (11:53)
[2017-04-22] MEDS ORDERED: MAGNESIUM SULF 50% (8.12 MEQ/2 ML-1 GM VIAL) IVPB ONE (16:05)
[2017-04-22] MEDS: LORazepam 1 MG TABLET PO PRN (23:43)
[2017-04-23] MEDS: SODIUM CHLORIDE 1,000 ML IV SCH (02:30)
[2017-04-23 06:52] VITALS: TEMP 97.8
--- NOTE | 2017-04-23 07:55 | DS ---
Physical Examination Vital Signs: Vital Signs Temperature 97.8 F 04/23/17 06:00 Pulse Rate 57 L 04/23/17 06:00 Respiratory Rate 18 04/23/17 06:00 Blood Pressure 144/84 04/23/17 06:00 O2 Sat by Pulse Oximetry (%) 99 04/22/17 10:00 Findings/Remarks: awake feels better Constitutional: Yes: No Distress Eyes: Yes: WNL HENT: Yes: WNL Neck: Yes: WNL Cardiovascular: Yes: WNL Respiratory: Yes: WNL Gastrointestinal: Yes: WNL Renal/: Yes: WNL Musculoskeletal: Yes: WNL Extremities: Yes: WNL Edema: No Peripheral Pulses WNL: Yes Integumentary: Yes: Bruising Wound/Incision: Yes: Clean/Dry Neurological: Yes: WNL ...Motor Strength: WNL Psychiatric: Yes: WNL Labs: CBC, BMP 04/21/17 12:05 04/22/17 11:08 Discharge Summary Reason For Visit: ALCOHOL INTOXICATION Current Active Problems Alcohol dependence with uncomplicated withdrawal (Acute) Alcohol intoxication (Acute) Depression (Acute) Fall (Acute) Hypokalemia (Acute) Procedures: Principal: ct head Hospital Course: admitted for etoh withdrawels/detox treated with librium, ativan, vitamins iv and po, detox as outpatient scheduled Condition: Guarded - Instructions Diet, Activity, Other Instructions: low sodium outpatient detox scheduled see dr robles in 1-2 days Referrals: Ruth Robles [Primary Care Provider] - Disposition: HOME - Home Medications Comprehensive Discharge Medication List: Ambulatory Orders Acetaminophen [Tylenol .Regular Strength -] 650 mg PO Q6H PRN tablet 04/23/17 Amlodipine Besylate 10 mg PO DAILY #0 tab 04/23/17 Metoprolol Tartrate 25 mg PO BID #0 tab 04/23/17 Multivitamins [Multivit ([facility] Formulary)] 1 tab PO DAILY #30 tab 04/23/17 Pantoprazole Sodium [Protonix -] 40 mg PO DAILY #30 tablet.ec 04/23/17 Thiamine HCl [Vitamin B1 -] 100 mg PO BID #60 tablet 04/23/17 Valsartan [Diovan] 160 mg PO DAILY #0 tab 04/23/17
[2017-04-23 08:06] LABS: MCH 30.9 pg (25.7-33.7); MCHC 32.6 g/dl (32.0-36.0); MEAN PLT VOLUME 10.6 fl (7.5-11.1); PLATELET COUNT 146 K/MM3 (134-434); RDW 13.6 % (11.6-15.6); WHITE BLOOD COUNT 4.9 K/mm3 (4.0-10.0)
[2017-04-23 08:37] LABS: ANION GAP 7 (8-16); CALCIUM 7.9 mg/dL (8.5-10.1); CO2 30 mmol/L (21-32); CREATININE 0.8 mg/dL (0.55-1.02); GLUCOSE,RANDOM 134 mg/dL (74-106); MAGNESIUM 1.7 mg/dL (1.8-2.4)
[2017-04-23] MEDS ORDERED: LORazepam 1 MG TABLET PO PRN (09:34)
--- NOTE | 2017-04-23 09:38 | PN ---
S Progress Note (SOAP) Subjective: no complinats, completed detox, occasional difficulaty sleeping Objective: 04/23/17 09:36 Vital Signs - 24 hr 04/22/17 04/22/17 04/22/17 10:00 14:30 18:00 Temperature 97.7 F 98.1 F Pulse Rate 60 63 Respiratory 18 20 18 Rate Blood Pressure 128/73 139/85 O2 Sat by Pulse 99 Oximetry (%) 04/22/17 04/23/17 21:32 06:00 Temperature 97.8 F Pulse Rate 64 57 L Respiratory 18 18 Rate Blood Pressure 151/98 144/84 O2 Sat by Pulse Oximetry (%) Laboratory Results - last 24 hr 04/22/17 04/23/17 04/23/17 11:08 06:42 06:42 WBC 4.9 RBC 3.02 L Hgb 9.4 L Hct 28.7 L MCV 95.0 MCH 30.9 MCHC 32.6 RDW 13.6 Plt Count 146 MPV 10.6 Sodium 140 143 Potassium 2.9 L* 3.6 D Chloride 102 106 Carbon Dioxide 28 30 Anion Gap 10 7 L BUN 7 9 D Creatinine 0.7 0.8 Random Glucose 155 H D 134 H Calcium 8.6 7.9 L Magnesium 1.4 L 1.7 L D anemia, hyperglcymeia, low K 0 supplemented Active Medications Generic Name Dose Route Start Last Admin Trade Name Freq PRN Reason Stop Dose Admin Acetaminophen 650 mg 04/18/17 18:31 04/22/17 11:53 Tylenol - PO 650 mg Q6H PRN Administration FEVER OR PAIN Sodium Chloride 1,000 mls @ 83 mls/hr 04/18/17 18:45 04/23/17 02:30 Normal Saline - IV 83 mls/hr ASDIR [facility] Administration Lorazepam 2 mg 04/23/17 09:34 Ativan - PO HS PRN INSOMNIA Magnesium Oxide 400 mg 04/20/17 13:00 04/22/17 21:28 Mag-Ox - PO 400 mg BID [facility] Administration Metoprolol Tartrate 25 mg 04/18/17 18:45 04/22/17 21:28 Lopressor - PO 25 mg BID [facility] Administration Multivitamins/Minerals/Vitamin C 1 tab 04/19/17 10:00 04/22/17 10:51 Tab-A-Vit - PO 1 tab DAILY [facility] Administration Pantoprazole Sodium 40 mg 04/18/17 18:45 04/22/17 10:53 Protonix - PO 40 mg DAILY [facility] Administration Thiamine HCl 100 mg 04/18/17 18:45 04/22/17 21:28 Vitamin B1 - PO 100 mg BID [facility] Administration Valsartan 160 mg 04/19/17 10:00 04/22/17 10:52 Diovan - PO 160 mg DAILY [facility] Administration Assessment: 04/23/17 09:37 completd detox, medically stable, to return to psychiatrist for intensive outpatient alcohol treatment program. if she remains in hospital can have ativan for sleep prn no need to give for discharge medications. Salas Clayton MD [phone]
[2017-04-23] MEDS: THIAMINE HCL 100 MG TABLET (FP) PO SCH (10:25)
[2017-04-23] MEDS: PANTOPRAZOLE 40 MG TABLET (FP) PO SCH (10:25)
[2017-04-23] MEDS: VALSARTAN 160 MG TABLET (UD) PO SCH (10:25)
[2017-04-23] MEDS: MULTIVITAMINS (DAILY MVI) TABLET (FP) PO SCH (10:25)
[2017-04-23] MEDS: METOPROLOL TARTRATE 25 MG TABLET (FP) PO SCH (10:26)
[2017-04-23] MEDS: MAGNESIUM OXIDE 400 MG TABLET (FP) PO SCH (10:26)
[2017-04-23 12:09] VITALS: BP 148/86; PULSE 18
== END 2017-04-23 12:01 | disposition home or self-care (01) | DRG 775 ==
LOC: JER 12:33 → JERBED 15:22 → J5S 17:32 → OBSVTOIN 04-20 14:40
PROVIDERS: ADMIT Family Medicine; ATTEND Family Medicine
PROC: HZ2ZZZZ Detoxification Services for Substance Abuse Treatment (ICD-10-PCS; principal; 2017-04-20)
DX: F10.230 Alcohol dependence with withdrawal, uncomplicated (principal); E87.6 Hypokalemia; F32.9 Major depressive disorder, single episode, unspecified; I10 Essential (primary) hypertension; E78.5 Hyperlipidemia, unspecified; E11.9 Type 2 diabetes mellitus without complications; D64.9 Anemia, unspecified; E88.09 Other disorders of plasma-protein metabolism, not elsewhere classified; R00.0 Tachycardia, unspecified; I48.91 Unspecified atrial fibrillation
CPT/HCPCS: 36415; 70450-TC; 80048; 80053; 80307; 83690; 83735; 84100; 85025; 85027; 93005; 93010; 99284-25; G0378

== ENCOUNTER 2017-06-26 13:41 | Emergency (ER) | payer BC ==
[2017-06-26] MEDS ORDERED: ONDANSETRON 4 MG/2 ML VIAL IVPUSH ONE (14:08)
[2017-06-26] MEDS ORDERED: SODIUM CHLORIDE 0.9% 1000 ML INFUS.BAG IV ONE (14:08)
--- NOTE | 2017-06-26 14:09 | PDOC ---
History of Present Illness <Jakub Abdalla - Last Filed: 06/26/17 16:18> - General History Source: Patient - History of Present Illness Initial Comments: 06/26/17 15:01 Patient is a 66 y.o. female with a PMH of HTN, DLD who was BIBA with a c/o public intoxication. Patient repeatedly states "I don't know" in response to her presentation at our ED and is c/o nausea. Patient states she drinks vodka daily though she is unable to quantify the amount of vodka she drinks. Patient is uncertain of any head trauma/LOC and cannot identify the source of her facial abrasion. Patient denies any h/o DTs/seizures during withdrawal and states she has no interest in entering detoxification at this time. As per EMR, patient also has a h/o Afib, however patient denies this and review of medications shows no A/C. 06/26/17 15:13 <Cristy Burger - Last Filed: 06/26/17 20:44> - General Chief Complaint: Alcohol intoxication Stated Complaint: Alcohol intoxication/FALL Time Seen by Provider: 06/26/17 14:01 Past History <Jakub Abdalla - Last Filed: 06/26/17 16:18> - Past Medical History Anemia: No Asthma: No Cancer: No Cardiac Disorders: Yes (AFIB) CVA: No COPD: No CHF: No Dementia: No Diabetes: Yes GI Disorders: No Disorders: No HTN: Yes Hypercholesterolemia: Yes Liver Disease: No Seizures: No Thyroid Disease: No - Surgical History Abdominal Surgery: No Appendectomy: No Cardiac Surgery: No Cholecystectomy: No Lung Surgery: No Neurologic Surgery: No Orthopedic Surgery: No - Immunization History Immunization Up to Date: Yes - Suicide/Smoking/Psychosocial Hx Smoking Status: Yes Smoking History: Never smoked Have you smoked in the past 12 months: No Number of Cigarettes Smoked Daily: 0 Hx Alcohol Use: Yes (increasing use from derpession) Drug/Substance Use Hx: No Substance Use Type: Alcohol Hx Substance Use Treatment: Yes (many years ago, detox and rehab) <Cristy Burger - Last Filed: 06/26/17 20:44> - Past Medical History Allergies/Adverse Reactions: Allergies Allergy/AdvReac Type Severity Reaction Status Date / Time No Known Allergies Allergy Verified 06/26/17 14:25 Home Medications: Ambulatory Orders Acetaminophen [Tylenol .Regular Strength -] 650 mg PO Q6H PRN tablet 04/23/17 Amlodipine Besylate 10 mg PO DAILY #0 tab 04/23/17 Metoprolol Tartrate 25 mg PO BID #0 tab 04/23/17 Multivitamins [Multivit ([facility] Formulary)] 1 tab PO DAILY #30 tab 04/23/17 Pantoprazole Sodium [Protonix -] 40 mg PO DAILY #30 tablet.ec 04/23/17 Thiamine HCl [Vitamin B1 -] 100 mg PO BID #60 tablet 04/23/17 Valsartan [Diovan] 160 mg PO DAILY #0 tab 04/23/17 Review of Systems - Review of Systems Constitutional: Yes: Other. No: Chills, Fever HEENTM: No: Blurred Vision, Double Vision Respiratory: No: Orthopnea Cardiac (ROS): No: Chest Pain, Lightheadedness, Palpitations, Syncope ABD/GI: Yes: Nausea. No: Constipated, Diarrhea, Vomiting Psychiatric: Yes: Depression All Other Systems: Reviewed and Negative <Cristy Burger - Last Filed: 06/26/17 20:44> *Physical Exam - Vital Signs Last Vital Signs Temp Pulse Resp BP Pulse Ox 97.8 F 71 18 141/68 100 06/26/17 13:41 06/26/17 13:41 06/26/17 13:41 06/26/17 13:41 06/26/17 13:41 <Jakub Abdalla - Last Filed: 06/26/17 16:18> - Physical Exam General Appearance: Yes: Nourished, Disheveled, Alcohol on Breath HEENT: positive: EOMI, CHANTEL, Other (facial abrasion extending from the nasal bridge to the maxilla B/L - no active hemmorhage/edema/erythema; edentulous with multiple missing teeth) Neck: positive: Trachea midline, Supple Respiratory/Chest: positive: Lungs Clear Cardiovascular: positive: S1, S2. negative: Irregularly Irregular Gastrointestinal/Abdominal: positive: Normal Bowel Sounds, Soft. 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, Fully Oriented, Alert <Cristy Burger - Last Filed: 06/26/17 20:44> ED Treatment Course - LABORATORY CBC & Chemistry Diagram: 06/26/17 14:41 06/26/17 14:41 - ADDITIONAL ORDERS Additional order review: Laboratory Results 06/26/17 14:41 Sodium Cancelled Potassium Cancelled Chloride Cancelled Carbon Dioxide Cancelled Anion Gap Cancelled BUN Cancelled Creatinine Cancelled Creat Clearance w eGFR Cancelled Random Glucose Cancelled Calcium Cancelled Total Bilirubin Cancelled AST Cancelled ALT Cancelled Alkaline Phosphatase Cancelled Total Protein Cancelled Albumin Cancelled 06/26/17 14:41 RBC 3.91 D MCV 89.5 MCHC 32.3 RDW 14.3 MPV 9.3 D Neutrophils % 75.7 Lymphocytes % 15.7 D Monocytes % 8.1 Eosinophils % 0.0 Basophils % 0.5 - Medications Given in the ED: ED Medications Discontinued Medications Generic Name Dose Route Start Last Admin Trade Name Freq PRN Reason Stop Dose Admin Ondansetron HCl 4 mg 06/26/17 14:08 06/26/17 14:45 Zofran Injection IVPUSH 06/26/17 14:09 4 mg ONCE ONE Administration Sodium Chloride 1,000 ml 06/26/17 14:08 06/26/17 14:49 Normal Saline - IV 06/26/17 14:09 Not Given ONCE ONE <Jakub Abdalla - Last Filed: 06/26/17 16:18> - LABORATORY CBC & Chemistry Diagram: 06/26/17 14:41 06/26/17 14:41 <Cristy Burger - Last Filed: 06/26/17 20:44> Medical Decision Making - Medical Decision Making 06/26/17 15:14 Patient is a 66 y.o. female who presents with a c/o public intoxication. On PE patient is hemodynamically stable with alcohol on her breath. As patient has facial abrasion and no recall of head trauma/LOC will CT head. Banana bag + Zofran. Reassess. 06/26/17 20:[address] negative for acute bleed. Patient removed IV - s/p 50% banana bag. Patient ambulatory, tolerating PO intake. Patient administratively discharged with TDAP pending, however patient left prior to inoculation. <Cristy Burger - Last Filed: 06/26/17 20:44> *DC/Admit/Observation/Transfer <Jakub Abdalla - Last Filed: 06/26/17 16:18> <Cristy Burger - Last Filed: 06/26/17 20:44> Diagnosis at time of Disposition: Alcohol intoxication - Discharge Dispostion Disposition: HOME - Referrals Referrals: Ruth Robles [Primary Care Provider] - - Patient Instructions Printed Discharge Instructions: DI for Alcohol Abuse Additional Instructions: Please follow up with your primary doctor within 1 week for a re-evaluation. If you experience any chest pain, headache, vomiting, abdominal pain, or any other concerning symptoms, return to the ER immediately. - Post Discharge Activity
[2017-06-26] MEDS ORDERED: FOLIC ACID INJECTION - 1 MG, THIAMINE HCL 100 MG, MULTIVIT INJECTION ADULT 10 ML in SOD... IVPB ONE (14:13)
[2017-06-26 14:24] VITALS: BP 141/68; PULSE 71; TEMP 97.8; BMI 25.7
[2017-06-26] MEDS ORDERED: ONDANSETRON 4 MG/2 ML VIAL ONE (14:44)
[2017-06-26 14:55] LABS: BASO % 0.5 % (0-2.0); HEMOGLOBIN 11.3 GM/dL (10.7-15.3); LYMPH % 15.7 % (8-40); MCH 28.9 pg (25.7-33.7); MCHC 32.3 g/dl (32.0-36.0); MEAN CELL VOLUME 89.5 fl (80-96); MEAN PLT VOLUME 9.3 fl (7.5-11.1); MONO % 8.1 % (3.8-10.2); NEUT % 75.7 % (42.8-82.8); PLATELET COUNT 212 K/MM3 (134-434); RBC 3.91 M/mm3 (3.60-5.2); RDW 14.3 % (11.6-15.6); WHITE BLOOD COUNT 6.2 K/mm3 (4.0-10.0)
--- NOTE | 2017-06-26 16:14 | PDOC ---
Attending Attestation - Resident Resident Name: Cristy Burger - ED Attending Attestation I have performed the following: I have examined & evaluated the patient, The case was reviewed & discussed with the resident, I agree w/resident's findings & plan, Exceptions are as noted - HPI HPI: 06/26/17 16:08 66 F with h/o ETOH abuse, HTN, HLD presenting to ER after being found intoxicated by EMS. Pt states that she drinks vodka daily. Endorses drinking today but denies any coingestions. Pt denies any trauma or injury today. States that she "feels fine". Denies SI/HI/AVH. States that she is not interested in detox today. - Physicial Exam PE: 06/26/17 16:12 "GENERAL: Awake, alert, and fully oriented, in no acute distress HEAD: No signs of trauma EYES: PERRLA, EOMI, sclera anicteric, conjunctiva clear ENT: Superficial laceration to nasal bridge, Auricles normal inspection, hearing grossly normal, nares patent, oropharynx clear without exudates. Moist mucosa NECK: Nontender, no stepoffs, Normal ROM, supple, no lymphadenopathy, JVD, or masses LUNGS: Breath sounds equal, clear to auscultation bilaterally. No wheezes, and no crackles HEART: Regular rate and rhythm, normal S1 and S2, no murmurs, rubs or gallops ABDOMEN: Soft, nontender, normoactive bowel sounds. No guarding, no rebound. No masses EXTREMITIES: Normal range of motion, no edema. No clubbing or cyanosis. No cords, erythema, or tenderness NEUROLOGICAL: Cranial nerves II through XII intact. 5/5 strength and sensation in all extremities, Normal speech, normal gait SKIN: Warm, Dry, normal turgor, no rashes or lesions noted. " - Medical Decision Making 06/26/17 16:13 66 F presenting to ER for alcohol intoxication. Denies any complaints at this time but has a superficial laceration to her nasal bridge. Pt at this time is clinically sober. Ambulatory in ER with stable gait, AnOx3. Pt states that she plans to call a cab to go home. - CT head normal - Tdap ordered
[2017-06-26] MEDS ORDERED: DIPHTH,PERTUSS(ACELL),TET 0.5 ML DISP.SYRIN IM ONE (16:18)
[2017-06-26] MEDS ORDERED: ONDANSETRON 8 MG TABLET (FP) PO ONE (16:26)
--- NOTE | 2017-06-27 14:08 | EKG ---
Test Reason : Blood Pressure : / mmHG Vent. Rate : 065 BPM Atrial Rate : 065 BPM P-R Int : 160 ms QRS Dur : 094 ms QT Int : 446 ms P-R-T Axes : 074 097 071 degrees QTc Int : 463 ms NORMAL SINUS RHYTHM WITH SINUS ARRHYTHMIA RIGHTWARD AXIS BORDERLINE ECG WHEN COMPARED WITH ECG OF 18-APR-2017 12:51, NO SIGNIFICANT CHANGE WAS FOUND Confirmed by RENEA NUÑEZ, LUTHER ([id number]) on 06/27/2017 2:07:52 PM Referred By: Confirmed By:LUTHER MEIER MD
== END 2017-06-26 16:38 | disposition home or self-care (01) ==
LOC: JER 13:41
DX: F10.120 Alcohol abuse with intoxication, uncomplicated (principal); S00.81XA Abrasion of other part of head, initial encounter; I10 Essential (primary) hypertension; E78.00 Pure hypercholesterolemia, unspecified; I48.91 Unspecified atrial fibrillation; F32.9 Major depressive disorder, single episode, unspecified
CPT/HCPCS: 36415; 70450-TC; 85025; 93005; 93010; 99284-25

== ENCOUNTER 2017-06-27 15:26 | Emergency (ER) | payer BC ==
[2017-06-27 15:42] VITALS: TEMP 98.2; BMI 25.7
--- NOTE | 2017-06-27 17:08 | PDOC ---
History of Present Illness - General Chief Complaint: Alcohol intoxication Stated Complaint: INTOX Time Seen by Provider: 06/27/17 17:03 - History of Present Illness Initial Comments: 06/27/17 17:03 66 F with h/o ETOH abuse, HTN, presents to ER requesting detox. Pt states that she drank alcohol this morning and called EMS because she wanted to detox from alcohol. However, upon arrival to ER, pt now states that she no longer wishes to go to detox. She states that she does not want to wait any longer. Pt is clinically sober at this time, alert and oriented x 3. Denies SI/HI/AVH. Past History - Past Medical History Allergies/Adverse Reactions: Allergies Allergy/AdvReac Type Severity Reaction Status Date / Time No Known Allergies Allergy Verified 06/27/17 15:38 Home Medications: Ambulatory Orders Acetaminophen [Tylenol .Regular Strength -] 650 mg PO Q6H PRN tablet 04/23/17 Amlodipine Besylate 10 mg PO DAILY #0 tab 04/23/17 Metoprolol Tartrate 25 mg PO BID #0 tab 04/23/17 Multivitamins [Multivit ([facility] Formulary)] 1 tab PO DAILY #30 tab 04/23/17 Pantoprazole Sodium [Protonix -] 40 mg PO DAILY #30 tablet.ec 04/23/17 Thiamine HCl [Vitamin B1 -] 100 mg PO BID #60 tablet 04/23/17 Valsartan [Diovan] 160 mg PO DAILY #0 tab 04/23/17 Anemia: No Asthma: No Cancer: No Cardiac Disorders: Yes (AFIB) CVA: No COPD: No CHF: No Dementia: No Diabetes: Yes GI Disorders: No Disorders: No HTN: Yes Hypercholesterolemia: Yes Liver Disease: No Seizures: No Thyroid Disease: No - Surgical History Abdominal Surgery: No Appendectomy: No Cardiac Surgery: No Cholecystectomy: No Lung Surgery: No Neurologic Surgery: No Orthopedic Surgery: No - Immunization History Immunization Up to Date: Yes - Suicide/Smoking/Psychosocial Hx Smoking Status: Yes Smoking History: Never smoked Have you smoked in the past 12 months: No Number of Cigarettes Smoked Daily: 0 Information on smoking cessation initiated: No Hx Alcohol Use: Yes Drug/Substance Use Hx: No Substance Use Type: Alcohol Hx Substance Use Treatment: Yes (many years ago, detox and rehab) Review of Systems - Review of Systems Comments:: 06/27/17 17:05 "GENERAL/CONSTITUTIONAL: No fever or chills. No weakness. HEAD, EYES, EARS, NOSE AND THROAT: No change in vision. No ear pain or discharge. No sore throat. CARDIOVASCULAR: No chest pain or shortness of breath. RESPIRATORY: No cough, wheezing, or hemoptysis. GASTROINTESTINAL: No nausea, vomiting, diarrhea or constipation. GENITOURINARY: No dysuria, frequency, or change in urination. MUSCULOSKELETAL: No joint or muscle swelling or pain. No neck or back pain. SKIN: No rash NEUROLOGIC: No headache, vertigo, loss of consciousness, or change in strength/ sensation. ENDOCRINE: No increased thirst. No abnormal weight change. HEMATOLOGIC/LYMPHATIC: No anemia, easy bleeding, or history of blood clots. ALLERGIC/IMMUNOLOGIC: No hives or skin allergy. " *Physical Exam - Vital Signs Last Vital Signs Temp Pulse Resp BP Pulse Ox 98.2 F 65 20 110/67 99 06/27/17 15:39 06/27/17 15:39 06/27/17 15:39 06/27/17 15:39 06/27/17 16:14 - Physical Exam Comments: 06/27/17 17:05 "GENERAL: Awake, alert, and fully oriented, in no acute distress HEAD: No signs of trauma EYES: PERRLA, EOMI, sclera anicteric, conjunctiva clear ENT: nasal bridge laceration healing well, Auricles normal inspection, hearing grossly normal, nares patent, oropharynx clear without exudates. Moist mucosa NECK: Nontender, no stepoffs, Normal ROM, supple, no lymphadenopathy, JVD, or masses LUNGS: Breath sounds equal, clear to auscultation bilaterally. No wheezes, and no crackles HEART: Regular rate and rhythm, normal S1 and S2, no murmurs, rubs or gallops ABDOMEN: Soft, nontender, normoactive bowel sounds. No guarding, no rebound. No masses EXTREMITIES: Normal range of motion, no edema. No clubbing or cyanosis. No cords, erythema, or tenderness NEUROLOGICAL: Cranial nerves II through XII intact. 5/5 strength and sensation in all extremities, Normal speech, normal gait SKIN: Warm, Dry, normal turgor, no rashes or lesions noted. Medical Decision Making - Medical Decision Making 06/27/17 17:06 66 F with h/o ETOH abuse presenting to ER initially requesting detox but now requesting to go home as she no longer wishes to wait for detox. Pt is clinically sober. Ambulatory in ER with steady gait. Pt appears of sound mind at this time and has a plan to go home. I discussed the physical exam findings, ancillary test results and final diagnoses with the patient. I answered all of the patient's questions. The patient was satisfied with the care received and felt comfortable with the discharge plan and treatment plan. The patient agrees to follow up with the primary care physician within 24-72 hours. *DC/Admit/Observation/Transfer Diagnosis at time of Disposition: Alcohol intoxication - Discharge Dispostion Disposition: HOME - Referrals Referrals: Shan Nino MD [Primary Care Provider] - - Patient Instructions Printed Discharge Instructions: DI for Alcohol Abuse Additional Instructions: Follow up with your primary doctor tomorrow. If you are interested in detox or rehab, return to the ER. - Post Discharge Activity - Attestations Physician Attestion: 06/27/17 17:08 I, Dr. Jakub Abdalla MD, attest that this document has been prepared under my direction and personally reviewed by me in its entirety. I further attest, that it accurately reflects all work, treatment, procedures and medical decision -making performed by me.
[2017-06-27 17:17] VITALS: BP 110/70; PULSE 80
== END 2017-06-27 17:22 | disposition home or self-care (01) ==
LOC: JER 15:26
DX: F10.120 Alcohol abuse with intoxication, uncomplicated (principal); I10 Essential (primary) hypertension; Z13.89 Encounter for screening for other disorder; I48.91 Unspecified atrial fibrillation; E11.9 Type 2 diabetes mellitus without complications; E78.00 Pure hypercholesterolemia, unspecified
CPT/HCPCS: 99282-25

== ENCOUNTER 2017-06-28 03:02 | Inpatient (IN) | payer BC, OTHER ==
[2017-06-28 03:18] VITALS: BMI 27.4
[2017-06-28] MEDS ORDERED: SODIUM CHLORIDE 1,000 ML IV STA ×2 (03:40→03:41)
--- NOTE | 2017-06-28 03:40 | PDOC ---
History of Present Illness - History of Present Illness Initial Comments: 06/28/17 03:45 66 F with h/o ETOH abuse, HTN, presents to ER for EtOH intoxication. Patient has visited the ER yesterday and the day before for same complaint. Patient states that she has been drinking a lot recently due to stressors in her life. She reports that she has been compliant with her medication. States that she hasn't been eating much recently nor drinking much fluids besides EtOH. She refused detox when offered. Patient also has an abrasion on the bridge of her nose and states she has fallen at some point recently. <Lyudmila Viera - Last Filed: 06/28/17 03:44> - General History Source: Patient <Asad Barrios - Last Filed: 06/28/17 19:51> - General Chief Complaint: Alcohol intoxication Stated Complaint: INTOX Time Seen by Provider: 06/28/17 03:35 Past History <Lyudmila Viera - Last Filed: 06/28/17 03:44> - Past Medical History Anemia: No Asthma: No Cancer: No Cardiac Disorders: Yes (AFIB) CVA: No COPD: No CHF: No Dementia: No Diabetes: Yes GI Disorders: No Disorders: No HTN: Yes Hypercholesterolemia: Yes Liver Disease: No Seizures: No Thyroid Disease: No - Surgical History Abdominal Surgery: No Appendectomy: No Cardiac Surgery: No Cholecystectomy: No Lung Surgery: No Neurologic Surgery: No Orthopedic Surgery: No - Immunization History Immunization Up to Date: Yes - Suicide/Smoking/Psychosocial Hx Smoking Status: Yes Smoking History: Never smoked Have you smoked in the past 12 months: No Number of Cigarettes Smoked Daily: 0 Information on smoking cessation initiated: No Hx Alcohol Use: No Drug/Substance Use Hx: No Substance Use Type: Alcohol Hx Substance Use Treatment: Yes (many years ago, detox and rehab) <Asad Barrios - Last Filed: 06/28/17 19:51> - Past Medical History Allergies/Adverse Reactions: Allergies Allergy/AdvReac Type Severity Reaction Status Date / Time No Known Allergies Allergy Verified 06/28/17 03:17 Home Medications: Ambulatory Orders Acetaminophen [Tylenol .Regular Strength -] 650 mg PO Q6H PRN tablet 04/23/17 Amlodipine Besylate 10 mg PO DAILY #0 tab 04/23/17 Metoprolol Tartrate 25 mg PO BID #0 tab 04/23/17 Multivitamins [Multivit ([facility] Formulary)] 1 tab PO DAILY #30 tab 04/23/17 Pantoprazole Sodium [Protonix -] 40 mg PO DAILY #30 tablet.ec 04/23/17 Thiamine HCl [Vitamin B1 -] 100 mg PO BID #60 tablet 04/23/17 Valsartan [Diovan] 160 mg PO DAILY #0 tab 04/23/17 Review of Systems - Review of Systems Comments:: 06/28/17 03:52 CONSTITUTIONAL: Absent: fever, no chills, no fatigue EYES: Absent: visual changes ENT: Absent: ear pain, no sore throat CARDIOVASCULAR: Absent: chest pain, no palpitations RESPIRATORY: Absent: cough, no SOB GI: Absent: abdominal pain, no nausea, no vomiting, no constipation, no diarrhea GENITOURINARY: Absent: dysuria, no frequency, no hematuria MUSCULOSKELETAL: Absent: back pain, no arthralgia, no myalgia SKIN: Absent: rash <Lyudmila Viera - Last Filed: 06/28/17 03:44> *Physical Exam - Vital Signs Last Vital Signs Temp Pulse Resp BP Pulse Ox 98.6 F 61 18 105/73 99 06/28/17 03:17 06/28/17 03:31 06/28/17 03:31 06/28/17 03:31 06/28/17 03:17 - Physical Exam Comments: 06/28/17 03:50 GENERAL: Awake, alert, oriented. Appeared tearful upon interview. HEENT: Normocephalic, PERRL, EOM intact. Abrasion on ridge of nose from previous fall. CARDIOVASCULAR: Normal S1, S2. Regular rate and rhythm. PULMONARY: Clear to auscultation bilaterally. ABDOMEN: Soft, obese, non-distended, non-tender. EXTREMITIES: Normal ROM in all four extremities. No gross deformities. SKIN: Warm, dry. No rash NEUROLOGICAL: Slightly tremulous . <Lyudmila Viera - Last Filed: 06/28/17 03:44> - Vital Signs Last Vital Signs Temp Pulse Resp BP Pulse Ox 98.6 F 61 18 105/73 99 06/28/17 03:17 06/28/17 03:31 06/28/17 03:31 06/28/17 03:31 06/28/17 03:17 <Asad Barrios - Last Filed: 06/28/17 19:51> ED Treatment Course - LABORATORY CBC & Chemistry Diagram: 06/28/17 03:30 06/28/17 03:30 <Lyudmila Viera - Last Filed: 06/28/17 03:44> - LABORATORY CBC & Chemistry Diagram: 06/28/17 03:30 06/28/17 13:20 <Asad Barrios - Last Filed: 06/28/17 19:51> Medical Decision Making - Medical Decision Making 06/28/17 19:51 Dr. Barrios: The scribe's documentation has been prepared under my direction and personally reviewed by me in its entirery. I confirm that the note above accurately reflects all work, treatment, procedures, and medical decision making performed by me. Pt admitted due to hypotensiion. <Asad Barrios - Last Filed: 06/28/17 19:51> *DC/Admit/Observation/Transfer - Attestations Scribe Attestion: 06/28/17 03:53 Documentation prepared by Lyudmila Viera, acting as director of graduate medical education for Asad Barrios MD. <Lyudmila Viera - Last Filed: 06/28/17 03:44> <Asad Barrios - Last Filed: 06/28/17 19:51> Diagnosis at time of Disposition: Renal insufficiency Hypotension Qualifiers: Hypotension type: unspecified hypotension type Qualified Code(s): I95.9 - Hypotension, unspecified - Discharge Dispostion Condition at time of disposition: Stable
[2017-06-28] MEDS ORDERED: ONDANSETRON 4 MG/2 ML VIAL IVPUSH STA (03:41)
[2017-06-28 03:42] LABS: BASO % 0.6 % (0-2.0); EOS % 0.5 % (0-4.5); HEMATOCRIT 33.7 % (32.4-45.2); MCH 29.6 pg (25.7-33.7); MCHC 32.5 g/dl (32.0-36.0); MEAN CELL VOLUME 91.2 fl (80-96); MEAN PLT VOLUME 9.2 fl (7.5-11.1); MONO % 8.6 % (3.8-10.2); NEUT % 80.3 % (42.8-82.8); PLATELET COUNT 202 K/MM3 (134-434); RDW 14.5 % (11.6-15.6); WHITE BLOOD COUNT 5.8 K/mm3 (4.0-10.0)
[2017-06-28] MEDS ORDERED: chlordiazePOXIDE HCL 25 MG CAPSULE PO ONE ×3 (03:42→19:13)
[2017-06-28] MEDS ORDERED: ONDANSETRON 4 MG/2 ML VIAL ONE (03:57)
[2017-06-28] MEDS ORDERED: chlordiazePOXIDE HCL 25 MG CAPSULE ONE ×2 (03:57→17:00)
[2017-06-28 04:27] LABS: ALBUMIN 3.4 g/dl (3.4-5.0); ANION GAP 23 (8-16); BLOOD UREA NITROGEN 48 mg/dL (7-18); CALCIUM 7.8 mg/dL (8.5-10.1); CHLORIDE 103 mmol/L (98-107); CO2 15 mmol/L (21-32); CREATININE 2.6 mg/dL (0.55-1.02); GLUCOSE,RANDOM 69 mg/dL (74-106); MAGNESIUM 2.1 mg/dL (1.8-2.4); PHOSPHOROUS 4.6 mg/dL (2.5-4.9); POTASSIUM 4.2 mmol/L (3.5-5.1); SGOT/AST 98 U/L (15-37); SGPT/ALT 58 U/L (12-78); SODIUM 141 mmol/L (136-145)
[2017-06-28 04:29] LABS: ALK PHOS 121 U/L (45-117); BILIRUBIN,TOTAL 0.7 mg/dL (0.2-1.0); TOT PROT 6.8 g/dl (6.4-8.2)
[2017-06-28] MEDS ORDERED: KETOROLAC TROMETHAMINE 30 MG/1 ML VIAL IVPUSH ONE (04:48)
[2017-06-28] MEDS ORDERED: KETOROLAC TROMETHAMINE 30 MG/1 ML VIAL ONE (04:48)
--- NOTE | 2017-06-28 07:12 | PDOC ---
*Physical Exam - Vital Signs Last Vital Signs Temp Pulse Resp BP Pulse Ox 98.6 F 88 16 95/54 98 06/28/17 03:17 06/28/17 06:53 06/28/17 06:53 06/28/17 07:55 06/28/17 06:53 <Linden Barrios - Last Filed: 06/28/17 09:46> - Vital Signs Last Vital Signs Temp Pulse Resp BP Pulse Ox 98.6 F 88 16 88/54 98 06/28/17 03:17 06/28/17 06:53 06/28/17 06:53 06/28/17 07:00 06/28/17 06:53 - Physical Exam General Appearance: Yes: Nourished Respiratory/Chest: positive: Normal Breath Sounds Cardiovascular: positive: Regular Rhythm, Regular Rate Integumentary: positive: Bruising (Bruising to bridge of nose and to right upper back) Neurologic: positive: Motor Strength 5/5 <Amaury Mills - Last Filed: 06/28/17 15:16> Heart Score/ECG Review #1 06/28/17 08:43 EKG performed at 7:39:10 demonstrates rate of 73 bpm, rhythm of normal sinus, axis equal to normal. no T wave inversions, no ST elevations <Linden Barrios - Last Filed: 06/28/17 09:46> ED Treatment Course - LABORATORY CBC & Chemistry Diagram: 06/28/17 03:30 06/28/17 03:30 - ADDITIONAL ORDERS Additional order review: Laboratory Results 06/28/17 06/28/17 03:30 03:30 Sodium 141 Potassium 4.2 Chloride 103 Carbon Dioxide 15 L Anion Gap 23 H BUN 48 H Creatinine 2.6 H Creat Clearance w eGFR 18.47 Random Glucose 69 L Calcium 7.8 L Phosphorus 4.6 Magnesium 2.1 Total Bilirubin 0.7 D AST 98 H ALT 58 Alkaline Phosphatase 121 H Total Protein 6.8 Albumin 3.4 Alcohol, Quantitative 399.5 H* 06/28/17 03:30 RBC 3.70 MCV 91.2 MCHC 32.5 RDW 14.5 MPV 9.2 Neutrophils % 80.3 Lymphocytes % 10.0 D Monocytes % 8.6 Eosinophils % 0.5 D Basophils % 0.6 - Medications Given in the ED: ED Medications Discontinued Medications Generic Name Dose Route Start Last Admin Trade Name Maicol PRN Reason Stop Dose Admin Chlordiazepoxide HCl 50 mg 06/28/17 03:42 06/28/17 04:03 Librium - PO 06/28/17 03:43 50 mg ONCE ONE Administration Sodium Chloride 1,000 mls @ 1,000 mls/hr 06/28/17 03:40 06/28/17 03:56 Normal Saline - IV 06/28/17 04:39 1,000 mls/hr ASDIR STA Administration Sodium Chloride 1,000 mls @ 1,000 mls/hr 06/28/17 03:41 06/28/17 03:56 Normal Saline - IV 06/28/17 04:40 1,000 mls/hr ASDIR STA Administration Ketorolac Tromethamine 30 mg 06/28/17 04:48 06/28/17 04:58 Toradol Injection - IVPUSH 06/28/17 04:49 30 mg ONCE ONE Administration Lorazepam 1 mg 06/28/17 05:31 06/28/17 06:00 Ativan Injection - IVPUSH 06/28/17 05:32 1 mg ONCE ONE Administration Morphine Sulfate 4 mg 06/28/17 08:06 06/28/17 08:11 Morphine Injection - IVPUSH 06/28/17 08:07 4 mg ONCE ONE Administration Ondansetron HCl 4 mg 06/28/17 03:41 06/28/17 04:03 Zofran Injection IVPUSH 06/28/17 03:42 4 mg ONCE STA Administration Sodium Chloride 2,000 ml 06/28/17 07:29 06/28/17 07:36 Normal Saline - IV 06/28/17 07:30 2,000 ml ONCE ONE Administration <Linden Barrios - Last Filed: 06/28/17 09:46> - LABORATORY CBC & Chemistry Diagram: 06/28/17 03:30 06/28/17 13:20 - ADDITIONAL ORDERS Additional order review: Laboratory Results 06/28/17 06/28/17 03:30 03:30 Sodium 141 Potassium 4.2 Chloride 103 Carbon Dioxide 15 L Anion Gap 23 H BUN 48 H Creatinine 2.6 H Creat Clearance w eGFR 18.47 Random Glucose 69 L Calcium 7.8 L Phosphorus 4.6 Magnesium 2.1 Total Bilirubin 0.7 D AST 98 H ALT 58 Alkaline Phosphatase 121 H Total Protein 6.8 Albumin 3.4 Alcohol, Quantitative 399.5 H* 06/28/17 03:30 RBC 3.70 MCV 91.2 MCHC 32.5 RDW 14.5 MPV 9.2 Neutrophils % 80.3 Lymphocytes % 10.0 D Monocytes % 8.6 Eosinophils % 0.5 D Basophils % 0.6 - Medications Given in the ED: ED Medications Discontinued Medications Generic Name Dose Route Start Last Admin Trade Name Maicol PRN Reason Stop Dose Admin Chlordiazepoxide HCl 50 mg 06/28/17 03:42 06/28/17 04:03 Librium - PO 06/28/17 03:43 50 mg ONCE ONE Administration Sodium Chloride 1,000 mls @ 1,000 mls/hr 06/28/17 03:40 06/28/17 03:56 Normal Saline - IV 06/28/17 04:39 1,000 mls/hr ASDIR STA Administration Sodium Chloride 1,000 mls @ 1,000 mls/hr 06/28/17 03:41 06/28/17 03:56 Normal Saline - IV 06/28/17 04:40 1,000 mls/hr ASDIR STA Administration Ketorolac Tromethamine 30 mg 06/28/17 04:48 06/28/17 04:58 Toradol Injection - IVPUSH 06/28/17 04:49 30 mg ONCE ONE Administration Lorazepam 1 mg 06/28/17 05:31 06/28/17 06:00 Ativan Injection - IVPUSH 06/28/17 05:32 1 mg ONCE ONE Administration Ondansetron HCl 4 mg 06/28/17 03:41 06/28/17 04:03 Zofran Injection IVPUSH 06/28/17 03:42 4 mg ONCE STA Administration <Amaury Mills - Last Filed: 06/28/17 15:16> Medical Decision Making - Medical Decision Making 06/28/17 08:59 Valerie Pena was paged at 09:25 for admission. 06/28/17 09:46 Case discussed with Valerie Pena at 09:34. <Linden Barrios - Last Filed: 06/28/17 09:46> - Medical Decision Making 66 years old long-standing history of alcohol abuse presents to the ED with recent alcohol binge and fall. Patient states has not been eating or drinking water in the emergency Department patient borderline hypotensive. This is likely secondary to volume depletion We will hydrate and reassess Blood pressure improving Labs notable for acute kidney injury We'll admit to medicine for alcohol withdrawal acute kidney injury hypotension we'll hydrate and reassess <Amaury Mills - Last Filed: 06/28/17 15:16> *DC/Admit/Observation/Transfer <Linden Barrios - Last Filed: 06/28/17 09:46> - Discharge Dispostion Admit: Yes <Amaury Mills - Last Filed: 06/28/17 15:16> Diagnosis at time of Disposition: Renal insufficiency Hypotension Qualifiers: Hypotension type: unspecified hypotension type Qualified Code(s): I95.9 - Hypotension, unspecified
[2017-06-28] MEDS ORDERED: SODIUM CHLORIDE 0.9% 1000 ML INFUS.BAG IV ONE (07:29)
[2017-06-28] MEDS ORDERED: morphine CARPU-JECT 4 MG/1 ML DISP.SYRIN IVPUSH ONE (08:06)
[2017-06-28] MEDS ORDERED: morphine CARPU-JECT 4 MG/1 ML DISP.SYRIN ONE (08:07)
--- NOTE | 2017-06-28 10:30 | EKG ---
Test Reason : Blood Pressure : / mmHG Vent. Rate : 073 BPM Atrial Rate : 073 BPM P-R Int : 160 ms QRS Dur : 092 ms QT Int : 456 ms P-R-T Axes : 079 100 075 degrees QTc Int : 502 ms POOR DATA QUALITY, INTERPRETATION MAY BE ADVERSELY AFFECTED NORMAL SINUS RHYTHM RIGHTWARD AXIS BORDERLINE ECG WHEN COMPARED WITH ECG OF 28-JUN-2017 07:36, PREVIOUS ECG HAS UNDETERMINED RHYTHM, NEEDS REVIEW Confirmed by MARISSA JENKINS MD ([id number]) on 06/28/2017 10:30:13 AM Referred By: Confirmed By:MARISSA JENKINS MD
--- NOTE | 2017-06-28 12:43 | CONSULT ---
Consult Consult Specialty:: Nephrology Referred by:: Dr. Andrade Reason for Consultation:: Acute Kidney Injury - History of Present Illness Chief Complaint: "i have been drinking a lot of alcohol. I am drunk and not eating anything" History of Present Illness: 66F PMH of alcohol abuse, HTN, paroxysmal A fib not on AC due to a history of bleeding per chart presents to ER for EtOH intoxication and loss of appetite. Patient recently in the ER with the same chief complaint. Patient states she drinks Vodka everyday. It takes her a couple of days to go through a 1 liter bottle. Per patient she has been drinking even more recently due to stressors in her life. She states she also has not been eating any food nor has she been drinking any water for the past 5 days. She reports that she has been compliant with her medication. Per chart she refused detox when it was offered to her yesterday. She endorsed diarrhea which started today. She denies nausea vomiting fevers chills chest pain or shortness of breath. She denies hematuria or dysuria. She states she occasionally uses Advil and Aleve for pain. In the ED labs notable for creatinine of 2.6. Patient had a similar episode in February of 2017 where she had some depression after news about needing dentures and she did not eat any food or hydrate herself and her creatinine at the time was as high as 2.9 and eventually normalized - History Source History Provided By: Patient, Medical Record Limitations to Obtaining History: Intoxication - Past Medical History Cardio/Vascular: Yes: AFIB, HTN, Hyperlipdemia Gastrointestinal: Yes: Irritable Bowel Disease, Ulcerative Colitis Psych: Yes: Addictions (alcohol abuse ) Endocrine: Yes: Diabetes Mellitus - Alcohol/Substance Use Hx Alcohol Use: No - Smoking History Smoking history: Never smoked Have you smoked in the past 12 months: No Aproximately how many cigarettes per day: 0 Home Medications - Allergies Allergies/Adverse Reactions: Allergies Allergy/AdvReac Type Severity Reaction Status Date / Time No Known Allergies Allergy Verified 06/28/17 03:17 - Home Medications Home Medications: Ambulatory Orders Acetaminophen [Tylenol .Regular Strength -] 650 mg PO Q6H PRN tablet 04/23/17 Amlodipine Besylate 10 mg PO DAILY #0 tab 04/23/17 Metoprolol Tartrate 25 mg PO BID #0 tab 04/23/17 Multivitamins [Multivit ([facility] Formulary)] 1 tab PO DAILY #30 tab 04/23/17 Pantoprazole Sodium [Protonix -] 40 mg PO DAILY #30 tablet.ec 04/23/17 Thiamine HCl [Vitamin B1 -] 100 mg PO BID #60 tablet 04/23/17 Valsartan [Diovan] 160 mg PO DAILY #0 tab 04/23/17 Review of Systems - Review of Systems Constitutional: reports: Loss of Appetite, Weakness HENT: reports: No Symptoms Neck: reports: No Symptoms Cardiovascular: reports: No Symptoms Respiratory: reports: No Symptoms Physical Exam Vital Signs: Vital Signs Temperature 98.6 F 06/28/17 03:17 Pulse Rate 79 06/28/17 12:38 Respiratory Rate 18 06/28/17 09:24 Blood Pressure 101/59 06/28/17 12:38 O2 Sat by Pulse Oximetry (%) 95 06/28/17 09:24 Constitutional: Yes: Anxious, Obese, Poor Hygeine, Other (foul smelling) Eyes: Yes: EOM Intact HENT: Yes: Atraumatic Neck: Yes: Supple Cardiovascular: Yes: Regular Rate and Rhythm Respiratory: Yes: CTA Bilaterally Gastrointestinal: Yes: Soft Musculoskeletal: Yes: Back Pain Edema: No Neurological: Yes: Other (patient is trembling from alcohol withdrawals) Labs: CBC, BMP 06/28/17 03:30 06/28/17 03:30 Imaging - Results Chest X-ray: Report Reviewed, Image Reviewed Cat Scan: Report Reviewed, Image Reviewed Assessment/Plan 66F with multiple medical problems presents to the ED with alcohol intoxication and anorexia found to be in acute renal failure. Problems: GREGORIO/Acute renal failure Alcohol abuse alcohol intoxication paroxysmal A fib HTN HLD DM Ulcerative colitis dehydration/volume depletion hypocalcemia transaminitis Plan: Admit to medical service patient received 3 liters of normal saline in ED per RN repeat BMP now start NS @ 75ml/hr get Kidney ultrasound get bladder ultrasound replete calcium renally dose all meds avoid nephrotoxic drugs get urine electrolytes urine creatinine repeat BMP in AM Trend Cr trend LFTs Counselled on abstinence counselled on the importance of hydration and maintaining a diet with adequate food intake Case discussed with attending Dr. Weir
[2017-06-28] MEDS ORDERED: SODIUM CHLORIDE 1,000 ML IV SCH (12:45)
--- NOTE | 2017-06-28 13:13 | HP ---
Admitting History and Physical - Primary Care Physician PCP: Shan Nino - Admission History of Present Illness: 66 F with h/o ETOH abuse, HTN, presents to ER for EtOH intoxication. Patient has visited the ER yesterday and the day before for same complaint. Patient states that she has been drinking a lot recently due to stressors in her life. She reports that she has been compliant with her medication. States that she hasn't been eating much recently nor drinking much fluids besides EtOH. She refused detox when offered. Patient also has an abrasion on the bridge of her nose and states she has fallen at some point recently. patient says she has not eaten in 3 days but did drink 3 glasses alcohol last night and one glass today then she started having diarrhea since today. she says she fell and has back pain History Source: Patient - Past Medical History Cardiovascular: Yes: HTN Gastrointestinal: Yes: Irritable Bowel Disease, Ulcerative Colitis - Smoking History Smoking history: Never smoked Have you smoked in the past 12 months: No Aproximately how many cigarettes per day: 0 - Alcohol/Substance Use Hx Alcohol Use: Yes (last drink was today prior to comming to ER) Home Medications - Allergies Allergies/Adverse Reactions: Allergies Allergy/AdvReac Type Severity Reaction Status Date / Time No Known Allergies Allergy Verified 06/28/17 03:17 - Home Medications Home Medications: Ambulatory Orders Acetaminophen [Tylenol .Regular Strength -] 650 mg PO Q6H PRN tablet 04/23/17 Amlodipine Besylate 10 mg PO DAILY #0 tab 04/23/17 Metoprolol Tartrate 25 mg PO BID #0 tab 04/23/17 Multivitamins [Multivit ([facility] Formulary)] 1 tab PO DAILY #30 tab 04/23/17 Pantoprazole Sodium [Protonix -] 40 mg PO DAILY #30 tablet.ec 04/23/17 Thiamine HCl [Vitamin B1 -] 100 mg PO BID #60 tablet 04/23/17 Valsartan [Diovan] 160 mg PO DAILY #0 tab 04/23/17 Review of Systems - Review of Systems Musculoskeletal: reports: Back Pain Physical Examination Vital Signs: Vital Signs Temperature 98.6 F 06/28/17 03:17 Pulse Rate 79 06/28/17 12:38 Respiratory Rate 18 06/28/17 09:24 Blood Pressure 101/59 06/28/17 12:38 O2 Sat by Pulse Oximetry (%) 95 06/28/17 09:24 Constitutional: Yes: Calm Cardiovascular: Yes: Regular Rate and Rhythm, S1, S2 Respiratory: Yes: CTA Bilaterally Gastrointestinal: Yes: Normal Bowel Sounds, Soft Musculoskeletal: Yes: Other (no tnederness on exam no derformites or abrasion on the back noted) Edema: No Neurological: Yes: Alert, Oriented Labs: CBC, BMP 06/28/17 03:30 06/28/17 03:30 Imaging - Results Chest X-ray: Report Reviewed Cat Scan: Report Reviewed Problem List - Problems (1) Hypotension Assessment/Plan: ivf fluids now BP is betgter 101/85 secondary to volume depletion Code(s): I95.9 - HYPOTENSION, UNSPECIFIED Qualifiers: Hypotension type: unspecified hypotension type Qualified Code(s): I95.9 - Hypotension, unspecified (2) Renal insufficiency Assessment/Plan: ivf renal evaluation trend creatinine GREGORIO most. likely to volume depletion renal sono to r/o outlet obstruction Code(s): N28.9 - DISORDER OF KIDNEY AND URETER, UNSPECIFIED (3) Alcohol dependence with uncomplicated withdrawal Assessment/Plan: detox consult librium vitamins thiamine Code(s): F10.230 - ALCOHOL DEPENDENCE WITH WITHDRAWAL, UNCOMPLICATED (4) Fall Assessment/Plan: LS spine xrays ordered PT eval Code(s): W19.XXXA - UNSPECIFIED FALL, INITIAL ENCOUNTER
[2017-06-28 13:49] LABS: ANION GAP 19 (8-16); BLOOD UREA NITROGEN 46 mg/dL (7-18); CHLORIDE 112 mmol/L (98-107); CO2 13 mmol/L (21-32); CREATININE 2.1 mg/dL (0.55-1.02); GLUCOSE,RANDOM 51 mg/dL (74-106); POTASSIUM 4.8 mmol/L (3.5-5.1); SODIUM 144 mmol/L (136-145)
[2017-06-28 13:55] LABS: CALCIUM 6.7 mg/dL (8.5-10.1)
[2017-06-28] MEDS ORDERED: CALCIUM GLUCONATE 10% - 1,000 MG/10 ML VIAL IVPUSH ONE (13:59)
--- NOTE | 2017-06-28 15:07 | PN ---
Teaching Attending Note Name of Resident: Johan Mccarthy (Nephrology) ATTENDING PHYSICIAN STATEMENT I saw and evaluated the patient. I reviewed the resident's note and discussed the case with the resident. I agree with the resident's findings and plan as documented. Nephrology Consult Pt is a 66 year old female with pmhx of HTN and ETOH abuse who presents to the ER complaining of decreased PO intake and diarrhea. SHe was found to be in GREGORIO and I was called to evaluate her. She denies history of CKD. She occasionally uses nsaids. She drinks vodka daily. She says the diarrhea started last night. Current Medications Generic Name Dose Route Start Last Admin Trade Name Freq PRN Reason Stop Dose Admin Folic Acid 1 mg 06/29/17 10:00 Folic Acid - PO DAILY LESLY Sodium Chloride 1,000 mls @ 75 mls/hr 06/28/17 12:45 06/28/17 12:50 Normal Saline - IV 75 mls/hr ASDIR LESLY Administration Multivitamins/Minerals/Vitamin C 1 tab 06/29/17 10:00 Tab-A-Vit - PO DAILY LESLY Last Vital Signs Temp Pulse Resp BP Pulse Ox 98.6 F 79 18 101/59 95 06/28/17 03:17 06/28/17 12:38 06/28/17 09:24 06/28/17 12:38 06/28/17 09:24 Laboratory Tests 06/28/17 06/28/17 06/28/17 03:30 03:30 13:20 Sodium 141 144 Carbon Dioxide 15 L Creatinine 2.6 H Calcium 7.8 L Alcohol, Quantitative 399.5 H* cardio s1s2 pulm clear GI soft ext neg edema neuro awake Impression 1. GREGORIO 2. etoh abuse 3. diarrhea 4. paroxysmal A fib 5. HTN 6. HLD 7. DM 8. Ulcerative colitis 9. hypocalcemia Plan - renal function is improving - cont with fluids and change to 1/2 ns - repeat labs in am - follow renal ultrasoudn - check ua and urine lytes - monitor bp - discussed with medical attending - discussed with resident - replace calcium Dr Weir
[2017-06-28] MEDS ORDERED: CALCIUM GLUCONATE 10% - 1,000 MG/10 ML VIAL ONE (15:23)
[2017-06-28] MEDS: SODIUM CHLORIDE 0.45% 1,000 ML IV SCH (15:47)
[2017-06-28] MEDS ORDERED: SODIUM CHLORIDE 500 ML IV STA (19:23)
--- NOTE | 2017-06-28 19:27 | HOSP ---
Subjective - Review of Symptoms Events since last encounter: Called to see the patient by MANUEL Ross. Patient states she is an alcoholic and she feels very shaky. She states she fell today and wants pain medication for back pain. Last day without a drink was "weeks" ago. Went through detox years ago in [place]. Denies history of seizures. Seen and examined. Vital Signs Temperature 98.8 F 06/28/17 18:08 Pulse Rate 76 06/28/17 18:08 Respiratory Rate 22 06/28/17 18:08 Blood Pressure 99/61 06/28/17 18:08 O2 Sat by Pulse Oximetry (%) 98 06/28/17 15:31 Neuro: A&Ox3; anxious, tremulous, bilateral hand tremors, +asterixis CV: S1, S2, rrr Lungs: CTA Abd: soft, not tender, not distended Plan: Librium 50mg stat Start librium taper Ativan 2mg PRN for seizure activity Continue IV fluids Physical Examination Vital Signs: Vital Signs Temperature 98.8 F 06/28/17 18:08 Pulse Rate 76 06/28/17 18:08 Respiratory Rate 22 06/28/17 18:08 Blood Pressure 99/61 06/28/17 18:08 O2 Sat by Pulse Oximetry (%) 98 06/28/17 15:31 Labs: CBC, BMP 06/28/17 03:30 06/28/17 13:20
[2017-06-28] MEDS ORDERED: LORazepam 2 MG/ML SDV VIAL IVPUSH ONE (19:30)
[2017-06-28] MEDS: chlordiazePOXIDE HCL 25 MG CAPSULE PO SCH (22:53)
[2017-06-29] MEDS: chlordiazePOXIDE HCL 25 MG CAPSULE PO PRN (03:14)
[2017-06-29] MEDS: chlordiazePOXIDE HCL 25 MG CAPSULE PO SCH ×4 (06:08→22:01)
[2017-06-29 07:28] LABS: ANION GAP 16 (8-16); BLOOD UREA NITROGEN 35 mg/dL (7-18); CALCIUM 7.2 mg/dL (8.5-10.1); CHLORIDE 110 mmol/L (98-107); CO2 15 mmol/L (21-32); CREATININE 1.6 mg/dL (0.55-1.02); GLUCOSE,RANDOM 64 mg/dL (74-106); POTASSIUM 4.4 mmol/L (3.5-5.1); SODIUM 141 mmol/L (136-145)
--- NOTE | 2017-06-29 08:07 | CONSULT ---
Consult Detox [facility] Reason for Current Admission/Consult: alcohol use disorder Referred by:: michelle gaxiola MD - History History of Present Illness: 66 yo F w h/o alcohol use disorder - drinks 2-3 pints vodka daily admitted intoxicated and then developed alcohol withdrawal sx and started on Librium detox which she is toleratin well.,PMHX addisons disease?, colitis, HTN. Patient states that she has been drinking a lot recently due to stressors in her life, repeated visist to ed refused detox has never been intreatment before. no h/o dts or seizures. possible h/o depression - somewhat sedated from 50mg libirum dose but nurse reportts paeint was agitateda nd tremulous prior to emdications.. She reports that she has been compliant with her medication. States that she hasn't been eating much recently nor drinking much fluids besides EtOH. S Patient also has an abrasion on the bridge of her nose and states she has fallen at some point recently. reorting diarrhea - History Source History Provided By: Patient, Medical Record, Caregiver Limitations to Obtaining History: Poor Historian - Alcohol/Substance Use Hx Alcohol Use: No Hx Substance Use: No Hx Substance Use Treatment: No - Current Drug/Alcohol Use Alcohol Route: Oral Frequency: Daily Amount used: 2-3 pints Age of first use: 20 Date of Last Use: 06/28/17 - Past Medical History Cardio/Vascular: Yes: AFIB, HTN, Hyperlipdemia Gastrointestinal: Yes: Irritable Bowel Disease, Ulcerative Colitis Psych: Yes: Addictions (alcohol abuse ) Endocrine: Yes: Diabetes Mellitus - Significant Medical Findings: 66 yo f with h/o chroniic alcoholism, neer been in treatment admitted intoxicated after fall now being detoxed with libirum for alcohol withdrawal sx. CIWA Score - CIWA Score Nausea/Vomitin-Mild Nausea/No Vomiting Muscle Tremors: 1-None Visible, but [place] Anxiety: 1-Mildly Anxious Agitation: 1-Slight > Activity Paroxysmal Sweats: 1-Minimal Palms Moist Orientation: 1-Uncertain about Date Tacttile Disturbances: 1-Very Mild Itch/Numbness Auditory Disturbances: 0-None Visual Disturbances: 0-None Headache: 2-Mild CIWA-Ar Total Score: 9 Assessment Plan - Diagnosis (1) Addisons disease Status: Acute (2) Alcohol dependence with uncomplicated withdrawal Status: Acute (3) Alcoholic hepatitis Status: Acute Qualifiers: Ascites presence: without ascites Qualified Code(s): K70.10 - Alcoholic hepatitis without ascites (4) Depression Status: Acute (5) Fall Status: Acute (6) IBS (irritable bowel syndrome) Status: Acute (7) Volume depletion Status: Acute - Plan Plan: chart, labs, imaging reviewed, case discussed with medical providers. Pateint examined and history taken. REcommend: continue librium detox as ordere - mild sedation appropriate in an elderly patient undergoing alcohol withdrawal sx refer for inapteint rehab when she has completed detox. mvi, thiamine, fluids Salas Clayton MD [phone] - Medication Detox Regimen/Protocol: Librium
[2017-06-29] MEDS ORDERED: ONDANSETRON *ODT* 4 MG TABLET SL PRN (08:10)
--- NOTE | 2017-06-29 08:59 | PN ---
Progress Note, Physician - Current Medication List Current Medications: Active Medications Chlordiazepoxide HCl (Librium -) 50 mg PO [id number] LESLY Stop: 06/29/17 17:01 Last Admin: 06/29/17 06:08 Dose: 50 mg Chlordiazepoxide HCl (Librium -) 25 mg PO [id number] LESLY Stop: 06/30/17 17:01 Chlordiazepoxide HCl (Librium -) 15 mg PO [id number] LESLY Stop: 07/01/17 17:01 Chlordiazepoxide HCl (Librium -) 25 mg PO Q4H PRN PRN Reason: WITHDRAWAL(CONT SUBST) Stop: 07/01/17 19:12 Last Admin: 06/29/17 03:14 Dose: 25 mg Sodium Chloride (1/2 Normal Saline) 1,000 mls @ 83 mls/hr IV ASDIR LESLY Last Admin: 06/28/17 15:47 Dose: 83 mls/hr Ondansetron HCl (Zofran Odt -) 4 mg SL Q6H PRN PRN Reason: NAUSEA AND/OR VOMITING Multivit/Folic Acid/Iron ( Vitamins (Sjr) -) 1 tab PO DAILY [facility] Thiamine HCl (Vitamin B1 -) 100 mg PO [facility] - Objective Vital Signs: Vital Signs Temperature 97.8 F 06/29/17 06:00 Pulse Rate 78 06/29/17 06:00 Respiratory Rate 20 06/29/17 06:00 Blood Pressure 115/72 06/29/17 06:00 O2 Sat by Pulse Oximetry (%) 93 L 06/28/17 21:16 Cardiovascular: Yes: Regular Rate and Rhythm Respiratory: Yes: Rhonchi Gastrointestinal: Yes: Normal Bowel Sounds, Soft Labs: CBC, BMP 06/28/17 03:30 06/29/17 06:45 Assessment/Plan - Problems (1) Hypotension Assessment/Plan: ivf fluids now BP is betgter 101/85 secondary to volume depletion echo Code(s): I95.9 - HYPOTENSION, UNSPECIFIED Qualifiers: Hypotension type: unspecified hypotension type Qualified Code(s): I95.9 - Hypotension, unspecified (2) Renal insufficiency Assessment/Plan: ivf renal evaluation trend creatinine GREGORIO most. likely to volume depletion renal sono to r/o outlet obstruction Code(s): N28.9 - DISORDER OF KIDNEY AND URETER, UNSPECIFIED (3) Alcohol dependence with uncomplicated withdrawal Assessment/Plan: detox consult librium vitamins thiamine Code(s): F10.230 - ALCOHOL DEPENDENCE WITH WITHDRAWAL, UNCOMPLICATED (4) Fall Assessment/Plan: LS spine xrays ordered PT eval Code(s): W19.XXXA - UNSPECIFIED FALL, INITIAL ENCOUNTER
[2017-06-29 09:28] LABS: BILIRUBIN,TOTAL 0.7 mg/dL (0.2-1.0); SGOT/AST 122 U/L (15-37); TOT PROT 5.8 g/dl (6.4-8.2)
[2017-06-29 09:38] LABS: URINE APPEARANCE CLEAR; URINE BILIRUBIN NEGATIVE (NEGATIVE); URINE BLOOD 2+ (NEGATIVE); URINE COLOR LTYELLOW; URINE GLUCOSE (UA) NEGATIVE (NEGATIVE); URINE KETONE 1+ (NEGATIVE); URINE LEUK ESTERASE NEGATIVE (NEGATIVE); URINE NITRITE NEGATIVE (NEGATIVE); URINE UROBILINOGEN NEGATIVE mg/dL (0.2-1.0)
[2017-06-29 09:48] LABS: ALK PHOS 146 U/L (45-117); BILIRUBIN,DIRECT 0.3 mg/dL (0.0-0.2); SGPT/ALT 59 U/L (12-78)
[2017-06-29 09:51] LABS: URINE PROTEIN 2+ (NEGATIVE)
[2017-06-29] MEDS ORDERED: FOLIC ACID 1 MG TABLET (FP) PO SCH (10:00)
[2017-06-29] MEDS ORDERED: MULTIVITAMINS (DAILY MVI) TABLET (FP) PO SCH (10:00)
[2017-06-29 10:12] LABS: EPI CELLS RARE /HPF (FEW); GRANULAR CASTS 1 /lpf; URINE BACTERIA RARE /hpf (NONE SEEN); URINE HYALINE CAST 2 /lpf
[2017-06-29] MEDS: PRENATAL VITAMINS W/ FOLIC ACID TABLET (FP) PO SCH (10:23)
[2017-06-29] MEDS ORDERED: PT OWN MED DRAWER 7, Y5N ONE (10:24)
--- NOTE | 2017-06-29 10:33 | PN ---
Progress Note, Physician History of Present Illness: patient seen and examined at bedside creatinine continues to improve states her back hurts from a fall she had 2 days ago before admission - Current Medication List Current Medications: Active Medications Chlordiazepoxide HCl (Librium -) 50 mg PO [id number] LESLY Stop: 06/29/17 17:01 Last Admin: 06/29/17 06:08 Dose: 50 mg Chlordiazepoxide HCl (Librium -) 25 mg PO [id number] LESLY Stop: 06/30/17 17:01 Chlordiazepoxide HCl (Librium -) 15 mg PO [id number] LESLY Stop: 07/01/17 17:01 Chlordiazepoxide HCl (Librium -) 25 mg PO Q4H PRN PRN Reason: WITHDRAWAL(CONT SUBST) Stop: 07/01/17 19:12 Last Admin: 06/29/17 03:14 Dose: 25 mg Sodium Chloride (1/2 Normal Saline) 1,000 mls @ 83 mls/hr IV ASDIR [facility] Last Admin: 06/28/17 15:47 Dose: 83 mls/hr Ondansetron HCl (Zofran Odt -) 4 mg SL Q6H PRN PRN Reason: NAUSEA AND/OR VOMITING Multivit/Folic Acid/Iron ( Vitamins (Sjr) -) 1 tab PO DAILY [facility] Thiamine HCl (Vitamin B1 -) 100 mg PO [facility] - Objective Vital Signs: Vital Signs Temperature 97.8 F 06/29/17 06:00 Pulse Rate 78 06/29/17 06:00 Respiratory Rate 20 06/29/17 06:00 Blood Pressure 115/72 06/29/17 06:00 O2 Sat by Pulse Oximetry (%) 93 L 06/28/17 21:16 Constitutional: Yes: Obese, Poor Hygeine, Eyes: Yes: EOM Intact HENT: Yes: Atraumatic Neck: Yes: Supple Cardiovascular: Yes: Regular Rate and Rhythm Respiratory: Yes: CTA Bilaterally Gastrointestinal: Yes: Soft Musculoskeletal: Yes: Back Pain Edema: No Neurological: Yes: Other (patient is a bit shaky) Labs: CBC, BMP 06/28/17 03:30 06/29/17 06:45 Assessment/Plan 66F with multiple medical problems presents to the ED with alcohol intoxication and anorexia found to be in acute renal failure. Problems: GREGORIO/Acute renal failure Alcohol abuse alcohol intoxication paroxysmal A fib HTN HLD DM Ulcerative colitis dehydration/volume depletion hypocalcemia transaminitis Plan: continue 1/2NS 2 83ml/hr Kidney/Bladder ultrasound noted-fatty liver vs hepatocellular disease will need outpatient transvaginal ultrasounf Creatinine improved now 1.6 renally dose all meds avoid nephrotoxic drugs get urine electrolytes-pending urine creatinine-pending repeat BMP in AM Trend Cr trend LFTs Counselled on abstinence counselled on the importance of hydration and maintaining a diet with adequate food intake Case discussed with attending Dr. Weir
--- NOTE | 2017-06-29 14:10 | CON.CARD ---
Consult Consult Specialty:: cardiology Referred by:: chen Andrade Reason for Consultation:: Alcohol intoxication. Paroxysmal atrial fibrillation - History of Present Illness Chief Complaint: Alcohol intoxication History of Present Illness: The patient is a 66-year-old female, alcoholic, history of diabetes, hypertension, GI bleed, hyperlipidemia, ulcerative colitis, paroxysmal atrial fibrillation, not on anticoagulation because of prior GI bleed (?), Now admitted with alcohol intoxication. Found to have paroxysmal atrial fibrillation , severe dehydration, acute renal failure. The patient is currently sleepy and drowsy. Going in and out of atrial fibrillation. In sinus rhythm at the time of my exam. Denies chest pains, shortness of breath, palpitations. - History Source History Provided By: Medical Record Limitations to Obtaining History: Intoxication - Past Medical History Cardio/Vascular: Yes: AFIB, HTN, Hyperlipdemia Gastrointestinal: Yes: Irritable Bowel Disease, Ulcerative Colitis Psych: Yes: Addictions (alcohol abuse ) Endocrine: Yes: Diabetes Mellitus - Alcohol/Substance Use Hx Alcohol Use: No - Smoking History Smoking history: Never smoked Have you smoked in the past 12 months: No Aproximately how many cigarettes per day: 0 Home Medications - Allergies Allergies/Adverse Reactions: Allergies Allergy/AdvReac Type Severity Reaction Status Date / Time No Known Allergies Allergy Verified 06/28/17 03:17 - Home Medications Home Medications: Ambulatory Orders Acetaminophen [Tylenol .Regular Strength -] 650 mg PO Q6H PRN tablet 04/23/17 Amlodipine Besylate 10 mg PO DAILY #0 tab 04/23/17 Metoprolol Tartrate 25 mg PO BID #0 tab 04/23/17 Multivitamins [Multivit ([facility] Formulary)] 1 tab PO DAILY #30 tab 04/23/17 Pantoprazole Sodium [Protonix -] 40 mg PO DAILY #30 tablet.ec 04/23/17 Thiamine HCl [Vitamin B1 -] 100 mg PO BID #60 tablet 04/23/17 Valsartan [Diovan] 160 mg PO DAILY #0 tab 04/23/17 Review of Systems - Review of Systems Constitutional: reports: Lethargy, Loss of Appetite, Malaise Eyes: reports: No Symptoms HENT: reports: No Symptoms Neck: reports: No Symptoms Cardiovascular: reports: No Symptoms Respiratory: reports: No Symptoms Gastrointestinal: reports: No Symptoms Genitourinary: reports: No Symptoms Breasts: reports: No Symptoms Reported Musculoskeletal: reports: No Symptoms Integumentary: reports: No Symptoms Neurological: reports: No Symptoms, Headache Endocrine: reports: No Symptoms Hematology/Lymphatic: reports: No Symptoms Psychiatric: reports: No Symptoms Vital Signs: Vital Signs Temperature 98.5 F 06/29/17 10:00 Pulse Rate 85 06/29/17 10:00 Respiratory Rate 20 06/29/17 13:00 Blood Pressure 106/62 06/29/17 10:00 O2 Sat by Pulse Oximetry (%) 93 L 06/29/17 13:00 Constitutional: Yes: Well Nourished, No Distress, Calm Eyes: Yes: WNL, Conjunctiva Clear HENT: Yes: WNL, Atraumatic, Normocephalic Neck: Yes: WNL, Supple, Trachea Midline Respiratory: Yes: WNL, Regular, CTA Bilaterally Gastrointestinal: Yes: WNL, Normal Bowel Sounds, Soft Renal/: Yes: WNL Cardiovascular: Yes: WNL, Regular Rate and Rhythm JVD: No Carotid Bruit: No PMI: Non-Displaced Heart Sounds: Yes: S1, S2 Murmur: Yes: Systolic Murmur, Grade 2 Musculoskeletal: Yes: WNL Extremities: Yes: WNL Edema: No Peripheral Pulses WNL: Yes Peripheral Pulses: 2+ Left Carotid, 2+ Right Carotid, 2+ Left Femoral, 2+ Right Femoral, 2+ Left Popliteal, 2+ Right Popliteal, 2+ Left Doralis Pedis, 2+ Right Dorsalis Pedis Integumentary: Yes: WNL Neurological: Yes: WNL Psychiatric: Yes: WNL - Other Data Labs, Other Data: CBC, BMP 06/28/17 03:30 06/29/17 06:45 Assessment/Plan 66-year-old female presenting with alcohol intoxication, acute renal failure, severe dehydration, paroxysmal atrial fibrillation. The patient will certainly benefit from anticoagulation, unless contraindicated due to prior GI bleed. Would not to use antiarrhythmics in this setting. Continue the Librium taper, and alcohol withdrawal precautions. Placed the patient on an oxygen mask. She is somnolent and hypoxemic. Continue current regimen. There is no evidence of ischemia nor acute coronary syndrome. No CHF. There is no need for further cardiac workup at this point [facility]
[2017-06-29] MEDS: SODIUM CHLORIDE 0.45% 1,000 ML IV SCH (16:23)
--- NOTE | 2017-06-29 17:24 | PN ---
Teaching Attending Note Name of Resident: Johan Mccarthy (Nephrology) ATTENDING PHYSICIAN STATEMENT I saw and evaluated the patient. I reviewed the resident's note and discussed the case with the resident. I agree with the resident's findings and plan as documented. Renal Pt seen and examined at bedside. She is more comfortable than she was yesterday. Current Medications Generic Name Dose Route Start Last Admin Trade Name Freq PRN Reason Stop Dose Admin Chlordiazepoxide HCl 25 mg 06/29/17 23:00 Librium - PO 06/30/17 17:01 [id number] LESLY Chlordiazepoxide HCl 15 mg 06/30/17 23:00 Librium - PO 07/01/17 17:01 [id number] LESLY Chlordiazepoxide HCl 25 mg 06/28/17 19:13 06/29/17 03:14 Librium - PO 07/01/17 19:12 25 mg Q4H PRN Administration WITHDRAWAL(CONT SUBST) Sodium Chloride 1,000 mls @ 83 mls/hr 06/28/17 15:15 06/29/17 16:23 1/2 Normal Saline IV 83 mls/hr ASDIR LESLY Administration Ondansetron HCl 4 mg 06/29/17 08:10 Zofran Odt - SL Q6H PRN NAUSEA AND/OR VOMITING Multivit/Folic Acid/Iron 1 tab 06/29/17 10:00 06/29/17 10:23 Vitamins (Sjr) - PO 1 tab DAILY LESLY Administration Thiamine HCl 100 mg 06/29/17 22:00 Vitamin B1 - PO HS [facility] Laboratory Tests 06/29/17 06:45 BUN 35 H Creatinine 1.6 H cardio s1s2 pulm clear GI soft ext neg edema neuro awake Impression 1. GREGORIO 2. etoh abuse 3. diarrhea 4. paroxysmal A fib 5. HTN 6. HLD 7. DM 8. Ulcerative colitis 9. hypocalcemia Plan - renal function stabilizing - cont fluids - repeat labs in am - monitor bp
[2017-06-29] MEDS: THIAMINE HCL 100 MG TABLET (FP) PO SCH (21:55)
[2017-06-30] MEDS ORDERED: oxyCODONE HCL 5 MG TABLET PO ONE (02:17)
[2017-06-30] MEDS: chlordiazePOXIDE HCL 25 MG CAPSULE PO PRN (02:38)
[2017-06-30] MEDS: SODIUM CHLORIDE 0.45% 1,000 ML IV SCH (02:51)
[2017-06-30] MEDS: chlordiazePOXIDE HCL 25 MG CAPSULE PO SCH ×3 (05:33→17:31)
[2017-06-30 08:26] LABS: CHLORIDE 110 mmol/L (98-107); POTASSIUM 3.5 mmol/L (3.5-5.1); SODIUM 141 mmol/L (136-145)
[2017-06-30 08:34] LABS: ALBUMIN 2.9 g/dl (3.4-5.0); ALK PHOS 152 U/L (45-117); ANION GAP 10 (8-16); BLOOD UREA NITROGEN 19 mg/dL (7-18); CALCIUM 7.5 mg/dL (8.5-10.1); CO2 21 mmol/L (21-32); CREATININE 1.1 mg/dL (0.55-1.02); GLUCOSE,RANDOM 89 mg/dL (74-106); SGOT/AST 106 U/L (15-37); SGPT/ALT 61 U/L (12-78)
[2017-06-30] MEDS: PRENATAL VITAMINS W/ FOLIC ACID TABLET (FP) PO SCH (11:11)
--- NOTE | 2017-06-30 11:38 | PN ---
Progress Note, Physician History of Present Illness: C/O HIP AND BACK PAIN - Current Medication List Current Medications: Active Medications Chlordiazepoxide HCl (Librium -) 25 mg PO [id number] LESLY Stop: 06/30/17 17:01 Last Admin: 06/30/17 11:10 Dose: 25 mg Chlordiazepoxide HCl (Librium -) 15 mg PO [id number] LESLY Stop: 07/01/17 17:01 Chlordiazepoxide HCl (Librium -) 25 mg PO Q4H PRN PRN Reason: WITHDRAWAL(CONT SUBST) Stop: 07/01/17 19:12 Last Admin: 06/30/17 02:38 Dose: 25 mg Sodium Chloride (1/2 Normal Saline) 1,000 mls @ 83 mls/hr IV ASDIR [facility] Last Admin: 06/30/17 02:51 Dose: 83 mls/hr Ondansetron HCl (Zofran Odt -) 4 mg SL Q6H PRN PRN Reason: NAUSEA AND/OR VOMITING Last Admin: 06/30/17 11:10 Dose: 4 mg Multivit/Folic Acid/Iron ( Vitamins (Sjr) -) 1 tab PO DAILY [facility] Last Admin: 06/30/17 11:11 Dose: 1 tab Thiamine HCl (Vitamin B1 -) 100 mg PO HS [facility] Last Admin: 06/29/17 21:55 Dose: 100 mg - Objective Vital Signs: Vital Signs Temperature 98.7 F 06/30/17 05:00 Pulse Rate 79 06/30/17 05:00 Respiratory Rate 16 06/30/17 10:00 Blood Pressure 104/74 06/30/17 05:00 O2 Sat by Pulse Oximetry (%) 92 L 06/30/17 10:00 Cardiovascular: Yes: Regular Rate and Rhythm Respiratory: Yes: Regular, CTA Bilaterally Gastrointestinal: Yes: Normal Bowel Sounds, Soft. No: Tenderness Edema: No Labs: CBC, BMP 06/28/17 03:30 06/30/17 05:05 Assessment/Plan - Problems (1) Hypotension Assessment/Plan: ivf fluids now BP is betgter 101/85 secondary to volume depletion echo Code(s): I95.9 - HYPOTENSION, UNSPECIFIED Qualifiers: Hypotension type: unspecified hypotension type Qualified Code(s): I95.9 - Hypotension, unspecified (2) Renal insufficiency Assessment/Plan: ivf renal evaluation trend creatinine GREGORIO most. likely to volume depletion renal sono to r/o outlet obstruction Code(s): N28.9 - DISORDER OF KIDNEY AND URETER, UNSPECIFIED (3) Alcohol dependence with uncomplicated withdrawal Assessment/Plan: detox consult librium vitamins thiamine Code(s): F10.230 - ALCOHOL DEPENDENCE WITH WITHDRAWAL, UNCOMPLICATED (4) Fall Assessment/Plan: LS spine xrays ordered PT eval Code(s): W19.XXXA - UNSPECIFIED FALL, INITIAL ENCOUNTER (5) Back Pain/Hip Pain Assessment/Plan: ORTHO XRAYS
[2017-06-30 13:07] LABS: BASO % 0.3 % (0-2.0); HEMOGLOBIN 9.3 GM/dL (10.7-15.3); LYMPH % 19.2 % (8-40); MCH 29.1 pg (25.7-33.7); MCHC 32.2 g/dl (32.0-36.0); MEAN CELL VOLUME 90.1 fl (80-96); MEAN PLT VOLUME 9.7 fl (7.5-11.1); NEUT % 72.5 % (42.8-82.8); PLATELET COUNT 94 K/MM3 (134-434); RBC 3.22 M/mm3 (3.60-5.2); RDW 14.6 % (11.6-15.6)
[2017-06-30 13:42] LABS: AMYLASE 134 U/L (25-115)
[2017-06-30 13:47] LABS: LIPASE 1858 U/L (73-393)
[2017-06-30] MEDS: traMADol HCL 50 MG TABLET PO PRN (16:44)
[2017-06-30] MEDS ORDERED: METOPROLOL TARTRATE 25 MG TABLET (FP) PO SCH (16:45)
[2017-06-30] MEDS ORDERED: METOPROLOL TARTRATE 5 MG/5 ML VIAL ONE (18:04)
[2017-06-30] MEDS ORDERED: METOPROLOL TARTRATE 5 MG/5 ML VIAL IVPUSH ONE (18:30)
[2017-06-30] MEDS ORDERED: METOPROLOL TARTRATE 25 MG TABLET (FP) PO ONE (18:30)
[2017-06-30 18:51] LABS: BASO % 0.2 % (0-2.0); EOS % 2.4 % (0-4.5); HEMATOCRIT 28.2 % (32.4-45.2); HEMOGLOBIN 9.4 GM/dL (10.7-15.3); LYMPH % 16.1 % (8-40); MCH 29.5 pg (25.7-33.7); MCHC 33.3 g/dl (32.0-36.0); MEAN CELL VOLUME 88.7 fl (80-96); MEAN PLT VOLUME 9.9 fl (7.5-11.1); MONO % 6.3 % (3.8-10.2); PLATELET COUNT 92 K/MM3 (134-434); RBC 3.18 M/mm3 (3.60-5.2); WHITE BLOOD COUNT 4.6 K/mm3 (4.0-10.0)
[2017-06-30 19:04] LABS: INR 1.06 (0.82-1.09)
[2017-06-30 19:07] LABS: ACTIVATED PTT 25.5 SECONDS (26.9-34.4)
--- NOTE | 2017-06-30 22:19 | CONSULT ---
Consult - text type - Consultation Consultation Note: full consult dictated imp: hip pain but no evidence of fx plan: wbat, f/u prn
[2017-06-30] MEDS: METOPROLOL TARTRATE 25 MG TABLET (FP) PO SCH (23:11)
[2017-06-30] MEDS: HEPARIN NA (PORCINE) 5,000 UNITS/ML 1ML VIAL SQ SCH (23:11)
[2017-06-30] MEDS: chlordiazePOXIDE 5 MG CAPSULE PO SCH (23:11)
[2017-06-30] MEDS: THIAMINE HCL 100 MG TABLET (FP) PO SCH (23:11)
[2017-07-01] MEDS: chlordiazePOXIDE 5 MG CAPSULE PO SCH ×3 (05:58→17:24)
[2017-07-01] MEDS: METOPROLOL TARTRATE 25 MG TABLET (FP) PO SCH ×3 (05:59→21:37)
[2017-07-01 07:07] LABS: BASO % 0.2 % (0-2.0); EOS % 2.9 % (0-4.5); HEMATOCRIT 30.4 % (32.4-45.2); HEMOGLOBIN 10.1 GM/dL (10.7-15.3); LYMPH % 16.9 % (8-40); MCH 29.4 pg (25.7-33.7); MCHC 33.2 g/dl (32.0-36.0); MEAN CELL VOLUME 88.7 fl (80-96); MEAN PLT VOLUME 10.5 fl (7.5-11.1); PLATELET COUNT 101 K/MM3 (134-434); RBC 3.42 M/mm3 (3.60-5.2); RDW 14.4 % (11.6-15.6); WHITE BLOOD COUNT 5.6 K/mm3 (4.0-10.0)
[2017-07-01 07:19] LABS: CHLORIDE 101 mmol/L (98-107); POTASSIUM 3.3 mmol/L (3.5-5.1); SODIUM 140 mmol/L (136-145)
[2017-07-01 07:36] LABS: ALBUMIN 3.2 g/dl (3.4-5.0); ALK PHOS 169 U/L (45-117); AMYLASE 172 U/L (25-115); ANION GAP 12 (8-16); BILIRUBIN,TOTAL 1.3 mg/dL (0.2-1.0); BLOOD UREA NITROGEN 10 mg/dL (7-18); CALCIUM 8.7 mg/dL (8.5-10.1); CO2 27 mmol/L (21-32); CREATININE 0.9 mg/dL (0.55-1.02); GLUCOSE,RANDOM 98 mg/dL (74-106); SGOT/AST 91 U/L (15-37); SGPT/ALT 69 U/L (12-78); TOT PROT 6.8 g/dl (6.4-8.2)
[2017-07-01 07:39] LABS: LIPASE 2416 U/L (73-393)
--- NOTE | 2017-07-01 07:50 | CONS ---
DATE OF CONSULTATION: 06/30/2017 Patient is a 66-year-old female, alcohol abuser with multiple pints of vodka daily, admitted with alcohol intoxication and withdrawal, status post multiple falls. Was complaining of some right hip pain on admission. Since then, patient is improving. This evening, the patient has been walking around on the finch with no pain, getting out of bed herself, and going to the bathroom back and forth, as reported by the nurses. PHYSICAL EXAMINATION: She has good range of motion at the knees, ankles, and toes. No ecchymosis, swelling, erythema. No point tenderness and, otherwise, neurovascularly intact. X-rays, which are reviewed in the hospital, are negative for fracture. IMPRESSION: Right hip contusion; no specific evidence of fracture or dislocation. PLAN: Nothing to do at this time. I will follow the patient while in the hospital if necessary, order further tests if symptoms return or get worse. CESILIA OSEI M.D. [id number]
--- NOTE | 2017-07-01 08:22 | PN ---
Progress Note, Physician Chief Complaint: Sleeping comfortably Rising amylase/lipase HR elevated overnight and started metoprolol and rates better controlled this am. History of Present Illness: The patient is a 66-year-old female, alcoholic, history of diabetes, hypertension, GI bleed, hyperlipidemia, ulcerative colitis, paroxysmal atrial fibrillation, not on anticoagulation because of prior GI bleed (?), Now admitted with alcohol intoxication. Found to have paroxysmal atrial fibrillation , severe dehydration, acute renal failure. - Current Medication List Current Medications: Active Medications Chlordiazepoxide HCl (Librium -) 15 mg PO [id number] [facility] Stop: 07/01/17 17:01 Last Admin: 07/01/17 05:58 Dose: 15 mg Chlordiazepoxide HCl (Librium -) 25 mg PO Q4H PRN PRN Reason: WITHDRAWAL(CONT SUBST) Stop: 07/01/17 19:12 Last Admin: 06/30/17 02:38 Dose: 25 mg Heparin Sodium (Porcine) (Heparin -) 5,000 unit SQ BID [facility] Last Admin: 06/30/17 23:11 Dose: 5,000 unit Sodium Chloride (1/2 Normal Saline) 1,000 mls @ 83 mls/hr IV ASDIR [facility] Last Admin: 06/30/17 02:51 Dose: 83 mls/hr Metoprolol Tartrate (Lopressor -) 25 mg PO TID [facility] Last Admin: 07/01/17 05:59 Dose: 25 mg Ondansetron HCl (Zofran Odt -) 4 mg SL Q6H PRN PRN Reason: NAUSEA AND/OR VOMITING Last Admin: 06/30/17 11:10 Dose: 4 mg Multivit/Folic Acid/Iron ( Vitamins (Sjr) -) 1 tab PO DAILY [facility] Last Admin: 06/30/17 11:11 Dose: 1 tab Thiamine HCl (Vitamin B1 -) 100 mg PO HS [facility] Last Admin: 06/30/17 23:11 Dose: 100 mg Tramadol HCl (Ultram -) 50 mg PO Q6H PRN PRN Reason: PAIN LEVEL 1 - 3 Last Admin: 06/30/17 16:44 Dose: 50 mg - Objective Vital Signs: Vital Signs Temperature 98.8 F 07/01/17 07:30 Pulse Rate 102 H 07/01/17 07:30 Respiratory Rate 18 07/01/17 07:30 Blood Pressure 124/70 07/01/17 07:30 O2 Sat by Pulse Oximetry (%) 96 07/01/17 07:30 Constitutional: Yes: No Distress Neck: Yes: WNL Cardiovascular: Yes: Pulse Irregular. No: JVD Respiratory: Yes: CTA Bilaterally Gastrointestinal: Yes: Normal Bowel Sounds Edema: No Labs: CBC, BMP 07/01/17 05:05 07/01/17 05:05 INR, PTT INR 1.06 (0.82-1.09) 06/30/17 18:25 Problem List - Problems (1) Atrial fibrillation Code(s): I48.91 - UNSPECIFIED ATRIAL FIBRILLATION Assessment/Plan The patient is a 66-year-old female, alcoholic, history of diabetes, hypertension, GI bleed, hyperlipidemia, ulcerative colitis, paroxysmal atrial fibrillation, not on anticoagulation because of prior GI bleed (?), Now admitted with alcohol intoxication. Found to have paroxysmal atrial fibrillation , severe dehydration, acute renal failure. 1) Afib -Patient was in afib with RVR overnight and started on metoprolol. Rates better controlled at this time. Would continue metoprolol 25mg q8hrs and will uptitrate further if needed -Continue telemetry Echocardiogram -Patient with high alcohol level and rising amylase/lipase. Alcohol withdrawal treatment and GI rec's regarding rising amylase/lipase. Continue IVF's If no contraindications to anticoagulation (patient denies any bleeding history ) than would start heparin IV with plan to start NOAC alf if no issues. -will follow Monitor lytes and replete K/Mg as needed
[2017-07-01] MEDS: PRENATAL VITAMINS W/ FOLIC ACID TABLET (FP) PO SCH (09:35)
[2017-07-01] MEDS: traMADol HCL 50 MG TABLET PO PRN (09:35)
[2017-07-01] MEDS: HEPARIN NA (PORCINE) 5,000 UNITS/ML 1ML VIAL SQ SCH ×2 (09:35→21:30)
[2017-07-01] MEDS: SODIUM CHLORIDE 0.45% 1,000 ML IV SCH (09:36)
--- NOTE | 2017-07-01 10:20 | PN ---
Progress Note, Physician History of Present Illness: C/O HIP AND BACK PAIN PT WIT HALLUCINATIONS - Current Medication List Current Medications: Active Medications Chlordiazepoxide HCl (Librium -) 15 mg PO [id number] [facility] Stop: 07/01/17 17:01 Last Admin: 07/01/17 05:58 Dose: 15 mg Chlordiazepoxide HCl (Librium -) 25 mg PO Q4H PRN PRN Reason: WITHDRAWAL(CONT SUBST) Stop: 07/01/17 19:12 Last Admin: 06/30/17 02:38 Dose: 25 mg Heparin Sodium (Porcine) (Heparin -) 5,000 unit SQ BID [facility] Last Admin: 07/01/17 09:35 Dose: 5,000 unit Sodium Chloride (1/2 Normal Saline) 1,000 mls @ 83 mls/hr IV ASDIR [facility] Last Admin: 07/01/17 09:36 Dose: 83 mls/hr Metoprolol Tartrate (Lopressor -) 25 mg PO TID [facility] Last Admin: 07/01/17 05:59 Dose: 25 mg Ondansetron HCl (Zofran Odt -) 4 mg SL Q6H PRN PRN Reason: NAUSEA AND/OR VOMITING Last Admin: 06/30/17 11:10 Dose: 4 mg Multivit/Folic Acid/Iron ( Vitamins (Sjr) -) 1 tab PO DAILY [facility] Last Admin: 07/01/17 09:35 Dose: 1 tab Thiamine HCl (Vitamin B1 -) 100 mg PO HS [facility] Last Admin: 06/30/17 23:11 Dose: 100 mg Tramadol HCl (Ultram -) 50 mg PO Q6H PRN PRN Reason: PAIN LEVEL 1 - 3 Last Admin: 07/01/17 09:35 Dose: 50 mg - Objective Vital Signs: Vital Signs Temperature 98.8 F 07/01/17 07:30 Pulse Rate 102 H 07/01/17 07:30 Respiratory Rate 18 07/01/17 07:30 Blood Pressure 124/70 07/01/17 07:30 O2 Sat by Pulse Oximetry (%) 96 07/01/17 07:30 Cardiovascular: Yes: S1, S2 Respiratory: Yes: Regular, CTA Bilaterally Gastrointestinal: Yes: Normal Bowel Sounds, Soft Labs: CBC, BMP 07/01/17 05:05 07/01/17 05:05 INR, PTT INR 1.06 (0.82-1.09) 06/30/17 18:25 Assessment/Plan - Problems (1) Hypotension Assessment/Plan: ivf fluids now BP is betgter 101/85 secondary to volume depletion echo Code(s): I95.9 - HYPOTENSION, UNSPECIFIED Qualifiers: Hypotension type: unspecified hypotension type Qualified Code(s): I95.9 - Hypotension, unspecified (2) Renal insufficiency Assessment/Plan: ivf renal evaluation trend creatinine GREGORIO most. likely to volume depletion renal sono to r/o outlet obstruction Code(s): N28.9 - DISORDER OF KIDNEY AND URETER, UNSPECIFIED (3) Alcohol dependence with uncomplicated withdrawal Assessment/Plan: detox consult librium vitamins thiamine Code(s): F10.230 - ALCOHOL DEPENDENCE WITH WITHDRAWAL, UNCOMPLICATED (4) Fall Assessment/Plan: LS spine xrays ordered PT eval Code(s): W19.XXXA - UNSPECIFIED FALL, INITIAL ENCOUNTER (5) Back Pain/Hip Pain Assessment/Plan: ORTHO XRAYS (6) Hallucinations Assessment/Plan: CT OF HEAD NEURO (7) Pancreatitis Assessment/Plan: FOLLOW LABS GI F/U (8) Anemia Assessment/Plan: REPEAT GI FOLLOW UP (5) Afib Assessment/Plan: RATE IMPROVED AC IF CLEARED BY GI
--- NOTE | 2017-07-01 11:26 | EKG ---
Test Reason : Blood Pressure : / mmHG Vent. Rate : 094 BPM Atrial Rate : 067 BPM P-R Int : 000 ms QRS Dur : 092 ms QT Int : 354 ms P-R-T Axes : 000 084 014 degrees QTc Int : 442 ms ATRIAL FIBRILLATION NONSPECIFIC ST ABNORMALITY ABNORMAL ECG Confirmed by MD WILLWO, GRIFFIN ([id number]) on 07/01/2017 11:26:23 AM Referred By: Confirmed By:GRIFFIN DAUGHERTY MD
--- NOTE | 2017-07-01 11:40 | EKG ---
Test Reason : Blood Pressure : / mmHG Vent. Rate : 137 BPM Atrial Rate : 113 BPM P-R Int : 000 ms QRS Dur : 090 ms QT Int : 292 ms P-R-T Axes : 000 087 207 degrees QTc Int : 440 ms ATRIAL FIBRILLATION WITH RAPID VENTRICULAR RESPONSE ABNORMAL ECG Confirmed by MD WILLOW, GRIFFIN ([id number]) on 07/01/2017 11:40:12 AM Referred By: Confirmed By:GRIFFIN DAUGHERTY MD
--- NOTE | 2017-07-01 11:41 | EKG ---
Test Reason : Blood Pressure : / mmHG Vent. Rate : 078 BPM Atrial Rate : 078 BPM P-R Int : 162 ms QRS Dur : 094 ms QT Int : 390 ms P-R-T Axes : 061 080 049 degrees QTc Int : 444 ms NORMAL SINUS RHYTHM NORMAL ECG Confirmed by MD WILLOW, GRIFFIN (2012) on 07/01/2017 11:41:01 AM Referred By: Shira SOFIA Confirmed By:GRIFFIN DAUGHERTY MD
--- NOTE | 2017-07-01 12:50 | CON.GI ---
Consult Consult Specialty:: Gastroenterology ( for Dr Gregg) Referred by:: Dr Blue Reason for Consultation:: Pancreatitis - History of Present Illness Chief Complaint: Came to ER for treatment of alcoholic intoxication following several falls at home History of Present Illness: 66F came to ER for management of alcoholic intoxication after several falls at home. She had been eating minimally during her recent alcohol binge and reports anorexia. She has a dull abdominal ache but denies severe abdominal pain and vomiting. She is not interested in eating. She was hallucinating earlier today and remains on Librium. She has a longstanding history of alcohol abuse and drinks up to a pint of vodka daily. 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 Her mother, father and siblings are/were alcoholics. She denies IVDA. She had a colonoscopy at [facility] but can't recall the results. Denies polyps. - History Source History Provided By: Patient Limitations to Obtaining History: Clinical Condition (DTs) - Past Medical History Cardio/Vascular: Yes: AFIB, HTN, Hyperlipdemia Gastrointestinal: Yes: Pancreatitis (current alcoholic pancreatitis) Hepatobiliary: Yes: Other (current alcoholic hepatitis and likely cirrhosis) Heme/Onc: Yes: Thrombocytopenia Psych: Yes: Addictions (alcohol abuse ) Endocrine: Yes: Diabetes Mellitus - Past Surgical History Past Surgical History: Yes: None - Alcohol/Substance Use Hx Alcohol Use: Yes (pint of vodka daily) - Smoking History Smoking history: Never smoked Have you smoked in the past 12 months: No Aproximately how many cigarettes per day: 0 - Social History Usual Living Arrangement: Alone ADL: Independent 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 Place of : [facility] History of Recent Travel: No Home Medications - Allergies Allergies/Adverse Reactions: Allergies Allergy/AdvReac Type Severity Reaction Status Date / Time No Known Allergies Allergy Verified 06/28/17 03:17 - Home Medications Home Medications: Ambulatory Orders Acetaminophen [Tylenol .Regular Strength -] 650 mg PO Q6H PRN tablet 04/23/17 Amlodipine Besylate 10 mg PO DAILY #0 tab 04/23/17 Metoprolol Tartrate 25 mg PO BID #0 tab 04/23/17 Multivitamins [Multivit ([facility] Formulary)] 1 tab PO DAILY #30 tab 04/23/17 Pantoprazole Sodium [Protonix -] 40 mg PO DAILY #30 tablet.ec 04/23/17 Thiamine HCl [Vitamin B1 -] 100 mg PO BID #60 tablet 04/23/17 Valsartan [Diovan] 160 mg PO DAILY #0 tab 04/23/17 Family Disease History - Family Disease History Family Disease History: CA: Mother (brain cancer, alcoholic), Other: Father ( alcoholic), Mother, Brother (alcoholic) Review of Systems - Review of Systems Constitutional: reports: Loss of Appetite, Malaise, Unintentional Wgt. Loss, Weakness Eyes: reports: No Symptoms HENT: reports: No Symptoms Neck: reports: No Symptoms Cardiovascular: reports: No Symptoms Respiratory: reports: No Symptoms Gastrointestinal: reports: Abdominal Pain Musculoskeletal: reports: Extremity Pain (from multiple falls and bruises), Muscle Pain Psychiatric: reports: Hallucinations Physical Exam-GI Vital Signs: Vital Signs Temperature 98.8 F 07/01/17 07:30 Pulse Rate 102 H 07/01/17 07:30 Respiratory Rate 18 07/01/17 07:30 Blood Pressure 124/70 07/01/17 07:30 O2 Sat by Pulse Oximetry (%) 96 07/01/17 07:30 CBC,CMP WBC 5.6 K/mm3 (4.0-10.0) 07/01/17 05:05 RBC 3.42 M/mm3 (3.60-5.2) L 07/01/17 05:05 Hgb 10.1 GM/dL (10.7-15.3) L 07/01/17 05:05 Hct 30.4 % (32.4-45.2) L 07/01/17 05:05 MCV 88.7 fl (80-96) 07/01/17 05:05 MCH 29.4 pg (25.7-33.7) 07/01/17 05:05 MCHC 33.2 g/dl (32.0-36.0) 07/01/17 05:05 RDW 14.4 % (11.6-15.6) 07/01/17 05:05 Plt Count 101 K/MM3 (134-434) L 07/01/17 05:05 MPV 10.5 fl (7.5-11.1) 07/01/17 05:05 Neutrophils % 73.0 % (42.8-82.8) 07/01/17 05:05 Lymphocytes % 16.9 % (8-40) 07/01/17 05:05 Monocytes % 7.0 % (3.8-10.2) 07/01/17 05:05 Eosinophils % 2.9 % (0-4.5) 07/01/17 05:05 Basophils % 0.2 % (0-2.0) 07/01/17 05:05 Sodium 140 mmol/L (136-145) 07/01/17 05:05 Potassium 3.3 mmol/L (3.5-5.1) L 07/01/17 05:05 Chloride 101 mmol/L (98-107) 07/01/17 05:05 Carbon Dioxide 27 mmol/L (21-32) 07/01/17 05:05 Anion Gap 12 (8-16) 07/01/17 05:05 BUN 10 mg/dL (7-18) 07/01/17 05:05 Creatinine 0.9 mg/dL (0.55-1.02) 07/01/17 05:05 Creat Clearance w eGFR > 60 (>60) 07/01/17 05:05 Random Glucose 98 mg/dL (74-106) 07/01/17 05:05 Calcium 8.7 mg/dL (8.5-10.1) 07/01/17 05:05 Phosphorus 4.6 mg/dL (2.5-4.9) 06/28/17 03:30 Magnesium 2.1 mg/dL (1.8-2.4) 06/28/17 03:30 Total Bilirubin 1.3 mg/dL (0.2-1.0) H D 07/01/17 05:05 Direct Bilirubin 0.3 mg/dL (0.0-0.2) H 06/29/17 06:45 AST 91 U/L (15-37) H 07/01/17 05:05 ALT 69 U/L (12-78) 07/01/17 05:05 Alkaline Phosphatase 169 U/L (45-117) H 07/01/17 05:05 Creatine Kinase 222 IU/L (26-192) H 07/01/17 05:05 Creatine Kinase Index 0.5 % (0.0-5.0) 07/01/17 05:05 CK-MB (CK-2) 1.179 ng/mL (0.5-3.6) 07/01/17 05:05 Troponin I < 0.02 ng/ml (0.00-0.05) 07/01/17 05:05 Total Protein 6.8 g/dl (6.4-8.2) 07/01/17 05:05 Albumin 3.2 g/dl (3.4-5.0) L 07/01/17 05:05 Total Amylase 172 U/L (25-115) H 07/01/17 05:05 Lipase 2416 U/L (73-393) H 07/01/17 05:05 Current Medications Generic Name Dose Route Start Last Admin Trade Name Freq PRN Reason Stop Dose Admin Chlordiazepoxide HCl 15 mg 06/30/17 23:00 07/01/17 10:40 Librium - PO 07/01/17 17:01 15 mg [id number] LESLY Administration Chlordiazepoxide HCl 25 mg 06/28/17 19:13 06/30/17 02:38 Librium - PO 07/01/17 19:12 25 mg Q4H PRN Administration WITHDRAWAL(CONT SUBST) Heparin Sodium (Porcine) 5,000 unit 06/30/17 22:00 07/01/17 09:35 Heparin - SQ 5,000 unit BID LESLY Administration Sodium Chloride 1,000 mls @ 83 mls/hr 06/28/17 15:15 07/01/17 09:36 1/2 Normal Saline IV 83 mls/hr ASDIR LESLY Administration Metoprolol Tartrate 25 mg 06/30/17 22:00 07/01/17 05:59 Lopressor - PO 25 mg TID LESLY Administration Ondansetron HCl 4 mg 06/29/17 08:10 06/30/17 11:10 Zofran Odt - SL 4 mg Q6H PRN Administration NAUSEA AND/OR VOMITING Multivit/Folic Acid/Iron 1 tab 06/29/17 10:00 07/01/17 09:35 Vitamins (Sjr) - PO 1 tab DAILY LESLY Administration Thiamine HCl 100 mg 06/29/17 22:00 06/30/17 23:11 Vitamin B1 - PO 100 mg HS LESLY Administration Tramadol HCl 50 mg 06/30/17 16:37 07/01/17 09:35 Ultram - PO 50 mg Q6H PRN Administration PAIN LEVEL 1 - 3 Constitutional: Yes: Anxious Eyes: Yes: Conjunctiva Clear HENT: Yes: Other (forehead bruise) Neck: Yes: Supple Cardiovascular: Yes: Pulse Irregular, S1 (wnl), S2 (nl) Respiratory: Yes: CTA Bilaterally ...Auscultate: Yes: Normoactive Bowel Sounds ...Palpate: Yes: Soft, Other (nontender) ...Rectal Exam: Yes: Guaiac Positive (brown trace guaiac positive stool), Hemorrhoids/External Extremities: Yes: Other (multiple bruises) Edema: No Peripheral Pulses WNL: Yes Neurological: Yes: Other (cooperative but forgetfull) Labs: CBC, BMP 07/01/17 05:05 07/01/17 05:05 INR, PTT INR 1.06 (0.82-1.09) 06/30/17 18:25 Laboratory Tests 06/28/17 06/29/17 06/30/17 03:30 06:45 05:05 Plt Count PT with INR Total Bilirubin 0.7 D 1.0 D AST 98 H 122 H 106 H ALT 58 59 61 Alkaline Phosphatase 121 H 146 H 152 H Albumin 2.9 L Total Amylase Lipase 06/30/17 06/30/17 07/01/17 12:32 18:25 05:05 Plt Count 101 L PT with INR 12.00 H Total Bilirubin AST ALT Alkaline Phosphatase Albumin Total Amylase 134 H Lipase 1858 H 07/01/17 05:05 Plt Count PT with INR Total Bilirubin AST ALT Alkaline Phosphatase Albumin Total Amylase 172 H Lipase 2416 H Imaging - Results Cat Scan: Report Reviewed ([place] Name: GURDEEP VARGAS DEPARTMENT OF RADIOLOGY Phys: Rosalba Blue MD : 1950 Age: 66 Sex: F [facility] Acct: [id number] Loc: [address] Exam Date: 06/30/17 Status: [place] [address] Unit Number: [id number] EXAM#: TYPE/EXAM: RESULT: [id number] CT/ABDOMEN PELVIS CT WITH CONTR HISTORY PROVIDED: Rule out pancreatitis. Sequential axial images were obtained from the domes of the diaphragms through the symphysis pubis following the administration of both oral and intravenous contrast material. The pancreas is normal in size and texture with no hepatic masses seen. There is no evidence of peripancreatic fluid collections or inflammatory changes that might suggest acute/chronic pancreatitis. Clinical and laboratory correlation is advised. The liver is normal in size. It is hypodense in texture consistent with diffuse fatty infiltration. No mass lesions are identified within the liver. The spleen, left adrenal gland and kidneys demonstrate no significant abnormalities. There is a 1.8 cm right adrenal nodule that most probably is benign in etiology. There is no evidence of pneumoperitoneum, bowel obstruction or intra-abdominal abscess. There is no CT evidence of acute appendicitis or diverticulitis. There is no evidence of intra-abdominal or retroperitoneal lymphadenopathy or fluid collections. Examination of the pelvis demonstrates no evidence of pelvic masses, fluid collections or lymphadenopathy. There is a trace amount of free fluid within the cul-de-sac. There is no evidence of acute bony abnormalities. IMPRESSION: Diffuse fatty infiltration of the liver with no CT evidence of pancreatitis or acute pathology within the abdomen or pelvis. Please see above discussion. Reported By: Cristhian Evans MD 07/01/17918 Technologist: Arlene Georges Transcribed Date/Time: 918 Chief Accountant: Cristhian Evans Printed Date/Time: By: Signed by: Cristhian Evans Signed on: 01-Jul-2017 09:21) Problem List - Problems (1) Chronic alcoholic pancreatitis Assessment/Plan: Suspect mild flare of chronic alcoholic pancreatitis given her lack of vomiting and CT findings. Will therefore continue regular diet. I have informed Gurdeep of the risks of pancreatic insufficiency and need to abstain for alcohol Code(s): K86.0 - ALCOHOL-INDUCED CHRONIC PANCREATITIS (2) Alcohol dependence with uncomplicated withdrawal Assessment/Plan: Continue detox protocol. Dr Gregg will return tomorrow. Code(s): F10.230 - ALCOHOL DEPENDENCE WITH WITHDRAWAL, UNCOMPLICATED (3) Alcoholic hepatitis Assessment/Plan: Given her thrombocytopenia I suspect a component of cirrhosis. I have informed Gurdeep of the risks of liver failure and need to abstain for alcohol Code(s): K70.10 - ALCOHOLIC HEPATITIS WITHOUT ASCITES Qualifiers: Ascites presence: without ascites Qualified Code(s): K70.10 - Alcoholic hepatitis without ascites
[2017-07-01] MEDS ORDERED: POTASSIUM CHLORIDE TABS 20 MEQ TABLET.ER (FP) PO ONE (13:39)
--- NOTE | 2017-07-01 14:41 | PN ---
Progress Note (short form) - Note Progress Note: RENAL Pt seen and examined has little appetite and has some abdominal discomfort Last Vital Signs Temp Pulse Resp BP Pulse Ox 98.8 F 102 H 18 124/70 96 07/01/17 07:30 07/01/17 07:30 07/01/17 07:30 07/01/17 07:30 07/01/17 07:30 lying flat comfprtably cvs s1s2 rr abd soft, +bowel sounds ext no edema CBC, BMP 07/01/17 05:05 07/01/17 05:05 Current Medications Generic Name Dose Route Start Last Admin Trade Name Freq PRN Reason Stop Dose Admin Chlordiazepoxide HCl 15 mg 06/30/17 23:00 07/01/17 10:40 Librium - PO 07/01/17 17:01 15 mg [id number] LESLY Administration Chlordiazepoxide HCl 25 mg 06/28/17 19:13 06/30/17 02:38 Librium - PO 07/01/17 19:12 25 mg Q4H PRN Administration WITHDRAWAL(CONT SUBST) Heparin Sodium (Porcine) 5,000 unit 06/30/17 22:00 07/01/17 09:35 Heparin - SQ 5,000 unit BID LESLY Administration Sodium Chloride 1,000 mls @ 83 mls/hr 06/28/17 15:15 07/01/17 09:36 1/2 Normal Saline IV 83 mls/hr ASDIR LESLY Administration Metoprolol Tartrate 25 mg 06/30/17 22:00 07/01/17 05:59 Lopressor - PO 25 mg TID LESLY Administration Ondansetron HCl 4 mg 06/29/17 08:10 06/30/17 11:10 Zofran Odt - SL 4 mg Q6H PRN Administration NAUSEA AND/OR VOMITING Multivit/Folic Acid/Iron 1 tab 06/29/17 10:00 07/01/17 09:35 Vitamins (Sjr) - PO 1 tab DAILY LESLY Administration Thiamine HCl 100 mg 06/29/17 22:00 06/30/17 23:11 Vitamin B1 - PO 100 mg HS LESLY Administration Tramadol HCl 50 mg 06/30/17 16:37 07/01/17 09:35 Ultram - PO 50 mg Q6H PRN Administration PAIN LEVEL 1 - 3 Impression 1. GREGORIO improved 2. etoh abuse 3. diarrhea 4. paroxysmal A fib 5. HTN 6. HLD 7. DM 8. Ulcerative colitis 9. hypocalcemia resolved 10. high lipase- alcoholic pancreatitis Plan continue fluids reviewed GI evaluation replace K, can add to fluids MV
[2017-07-01] MEDS: POTASSIUM CHLORIDE 10 MEQ in SODIUM CHLORIDE 0.45% 1,000 ML IVPB SCH (15:24)
--- NOTE | 2017-07-01 15:58 | CON.NEURO ---
Consult Consult Specialty:: NEUROLOGY-KELVIN NUÑEZ Reason for Consultation:: Hallucinations - History of Present Illness History of Present Illness: The patient is a 66-year-old female, alcoholic, history of diabetes, hypertension, GI bleed, hyperlipidemia, ulcerative colitis, paroxysmal atrial fibrillation, not on anticoagulation because of prior GI bleed (?), Now admitted with alcohol intoxication. Found to have paroxysmal atrial fibrillation , severe dehydration, acute renal failure. As per nursing pt. had visual hallucinations-she denies these, states does not feel she is in alcohol withdrawl. Tells me she has been admitted for alcohol rehab x1 and has attended AA but has been unsuccesful in ceasing ETOH use. Only complaint is weakness in all 4 ext. upon admission which made it'difficult for me to move", denies focal weakness and now denies ext. weakness. - Past Medical History Cardio/Vascular: Yes: AFIB, HTN, Hyperlipdemia Gastrointestinal: Yes: Pancreatitis (current alcoholic pancreatitis) Hepatobiliary: Yes: Other (current alcoholic hepatitis and likely cirrhosis) Psych: Yes: Addictions (alcohol abuse ) Endocrine: Yes: Diabetes Mellitus - Past Surgical History Past Surgical History: Yes: None - Alcohol/Substance Use Hx Alcohol Use: Yes (pint of vodka daily) - Smoking History Smoking history: Never smoked Have you smoked in the past 12 months: No Aproximately how many cigarettes per day: 0 - Social History Usual Living Arrangement: Alone ADL: Independent 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 History of Recent Travel: No Home Medications - Allergies Allergies/Adverse Reactions: Allergies Allergy/AdvReac Type Severity Reaction Status Date / Time No Known Allergies Allergy Verified 06/28/17 03:17 - Home Medications Home Medications: Ambulatory Orders Acetaminophen [Tylenol .Regular Strength -] 650 mg PO Q6H PRN tablet 04/23/17 Amlodipine Besylate 10 mg PO DAILY #0 tab 04/23/17 Metoprolol Tartrate 25 mg PO BID #0 tab 04/23/17 Multivitamins [Multivit ([facility] Formulary)] 1 tab PO DAILY #30 tab 04/23/17 Pantoprazole Sodium [Protonix -] 40 mg PO DAILY #30 tablet.ec 04/23/17 Thiamine HCl [Vitamin B1 -] 100 mg PO BID #60 tablet 04/23/17 Valsartan [Diovan] 160 mg PO DAILY #0 tab 04/23/17 Family Disease History - Family Disease History Family Disease History: CA: Mother (brain cancer, alcoholic), Other: Father ( alcoholic), Mother, Brother (alcoholic) Physical Exam-Neuro Vital Signs: Vital Signs Temperature 98.5 F 07/01/17 14:00 Pulse Rate 99 H 07/01/17 14:00 Respiratory Rate 20 07/01/17 14:00 Blood Pressure 109/73 07/01/17 14:00 O2 Sat by Pulse Oximetry (%) 96 07/01/17 07:30 Labs: CBC, BMP 07/01/17 05:05 07/01/17 05:05 INR, PTT INR 1.06 (0.82-1.09) 06/30/17 18:25 - Neuro Exam Cranial Nerves II-XII Intact: No (?? slight old left cent. facial deficit.) DTR's: 0 Left Achilles, 0 Right Achilles, 1+ Left Bicep, 1+ Right Bicep, 1+ Left Tricep, 1+ Right Tricep, 1+ Left Brachioradialis, 1+ Right Brachioradialis Babinski: Absent Response to light touch: Normal Response to pain prick: Normal Response to temperature: Normal Response to vibration: Abnormal (impaired in both feet.) Motor Strength: 5/5: Left Arm, Right Arm, Left Leg, Right Leg Gait: Deferred (Feels unsteady) Imaging - Results Cat Scan: Report Reviewed (W@ithout evidence of SDH/other acute cvhange.) Assessment/Plan Pt. with reported visual hallucinations which may have been due to ETOH withdrawl but now resolved. No evid. of seizures.She does not appear to have signs of ETOH withdrawl delirium nor evid. of head injury after fall. Would cont. Librium. Please call for further assistance. Thank you, Haroon Carmichael MD.
[2017-07-01] MEDS: THIAMINE HCL 100 MG TABLET (FP) PO SCH (21:38)
[2017-07-01] MEDS ORDERED: HEPARIN NA (PORCINE) 5,000 UNITS/ML 1ML VIAL IVPUSH PRN ×2 (22:03)
[2017-07-01] MEDS: HEPARIN - 25,000 UNIT in SODIUM CHLORIDE 495 ML IV SCH (23:45)
[2017-07-02] MEDS: POTASSIUM CHLORIDE 10 MEQ in SODIUM CHLORIDE 0.45% 1,000 ML IVPB SCH (03:55)
[2017-07-02] MEDS: METOPROLOL TARTRATE 25 MG TABLET (FP) PO SCH ×3 (06:26→21:39)
[2017-07-02 07:36] LABS: BASO % 0.3 % (0-2.0); EOS % 3.6 % (0-4.5); HEMATOCRIT 31.3 % (32.4-45.2); HEMOGLOBIN 10.4 GM/dL (10.7-15.3); LYMPH % 23.1 % (8-40); MCH 29.4 pg (25.7-33.7); MCHC 33.1 g/dl (32.0-36.0); MEAN CELL VOLUME 88.7 fl (80-96); MEAN PLT VOLUME 10.1 fl (7.5-11.1); MONO % 8.2 % (3.8-10.2); NEUT % 64.8 % (42.8-82.8); PLATELET COUNT 112 K/MM3 (134-434); RBC 3.53 M/mm3 (3.60-5.2); WHITE BLOOD COUNT 5.1 K/mm3 (4.0-10.0)
[2017-07-02 08:15] LABS: ALK PHOS 156 U/L (45-117); AMYLASE 145 U/L (25-115); ANION GAP 13 (8-16); BILIRUBIN,DIRECT 0.4 mg/dL (0.0-0.2); BILIRUBIN,TOTAL 1.2 mg/dL (0.2-1.0); BLOOD UREA NITROGEN 9 mg/dL (7-18); CALCIUM 7.8 mg/dL (8.5-10.1); CHLORIDE 101 mmol/L (98-107); CHOLESTEROL 160 mg/dL (50-200); CO2 25 mmol/L (21-32); CREATININE 0.9 mg/dL (0.55-1.02); GLUCOSE,RANDOM 93 mg/dL (74-106); LDL CHOLESTEROL (ONLY SJRH) 55 mg/dL (5-100); SGOT/AST 46 U/L (15-37); SGPT/ALT 54 U/L (12-78); SODIUM 139 mmol/L (136-145); TOT PROT 6.6 g/dl (6.4-8.2); TRIGLYCERIDES 94 mg/dL (35-160)
[2017-07-02 08:16] LABS: HDL CHOLESTEROL 88 mg/dL (40-60)
--- NOTE | 2017-07-02 08:45 | PN ---
Progress Note, Physician History of Present Illness: C/O HIP AND BACK PAIN PT BETTER TODAY - Current Medication List Current Medications: Active Medications Heparin Sodium (Porcine) (Heparin -) 1,000 unit IVPUSH PRN PRN PRN Reason: Heparin Heparin Sodium (Porcine) (Heparin -) 5,000 unit IVPUSH PRN PRN PRN Reason: Heparin Potassium Chloride 10 meq/ (Sodium Chloride) 1,005 mls @ 83 mls/hr IVPB Q12H [facility] Last Admin: 07/02/17 03:55 Dose: 83 mls/hr Heparin Sodium (Porcine) 25, (000 unit/ Sodium Chloride) 500 mls @ 16 mls/hr IV TITR LESLY; 800 UNIT/HR PRN Reason: Protocol Last Admin: 07/01/17 23:45 Dose: 800 unit/hr, 16 mls/hr Metoprolol Tartrate (Lopressor -) 25 mg PO TID [facility] Last Admin: 07/02/17 06:26 Dose: 25 mg Ondansetron HCl (Zofran Odt -) 4 mg SL Q6H PRN PRN Reason: NAUSEA AND/OR VOMITING Last Admin: 06/30/17 11:10 Dose: 4 mg Multivit/Folic Acid/Iron ( Vitamins (Sjr) -) 1 tab PO DAILY [facility] Last Admin: 07/01/17 09:35 Dose: 1 tab Thiamine HCl (Vitamin B1 -) 100 mg PO HS [facility] Last Admin: 07/01/17 21:38 Dose: 100 mg Tramadol HCl (Ultram -) 50 mg PO Q6H PRN PRN Reason: PAIN LEVEL 1 - 3 Last Admin: 07/01/17 09:35 Dose: 50 mg - Objective Vital Signs: Vital Signs Temperature 98.5 F 07/02/17 06:00 Pulse Rate 86 07/02/17 06:00 Respiratory Rate 20 07/02/17 06:00 Blood Pressure 127/87 07/02/17 06:00 O2 Sat by Pulse Oximetry (%) 95 07/01/17 22:00 Cardiovascular: Yes: Pulse Irregular, S1, S2 Respiratory: Yes: Regular, CTA Bilaterally Gastrointestinal: Yes: Normal Bowel Sounds, Soft Labs: CBC, BMP 07/02/17 07:15 INR, PTT INR 1.06 (0.82-1.09) 06/30/17 18:25 Assessment/Plan - Problems (1) Hypotension Assessment/Plan: ivf fluids now BP is betgter 101/85 secondary to volume depletion echo Code(s): I95.9 - HYPOTENSION, UNSPECIFIED Qualifiers: Hypotension type: unspecified hypotension type Qualified Code(s): I95.9 - Hypotension, unspecified (2) Renal insufficiency Assessment/Plan: ivf renal evaluation trend creatinine GREGORIO most. likely to volume depletion renal sono to r/o outlet obstruction Code(s): N28.9 - DISORDER OF KIDNEY AND URETER, UNSPECIFIED (3) Alcohol dependence with uncomplicated withdrawal Assessment/Plan: detox consult librium vitamins thiamine Code(s): F10.230 - ALCOHOL DEPENDENCE WITH WITHDRAWAL, UNCOMPLICATED (4) Fall Assessment/Plan: LS spine xrays ordered PT eval Code(s): W19.XXXA - UNSPECIFIED FALL, INITIAL ENCOUNTER (5) Back Pain/Hip Pain Assessment/Plan: ORTHO XRAYS (6) Hallucinations Assessment/Plan: CT OF HEAD NAD NEURO (7) Pancreatitis Assessment/Plan: FOLLOW LABS GI F/U (8) Anemia Assessment/Plan: REPEAT STABLE GI FOLLOW UP (5) Afib Assessment/Plan: RATE IMPROVED AC WITH HEPARIN
[2017-07-02 09:03] LABS: LIPASE 1662 U/L (73-393)
--- NOTE | 2017-07-02 09:48 | PN ---
[facility] Progress Note (SOAP) Subjective: patietn without complaint, completed detox, Objective: 07/02/17 09:47 Vital Signs - 24 hr 07/01/17 07/01/17 07/01/17 14:00 18:00 22:00 Temperature 98.5 F 98.1 F 98.7 F Pulse Rate 99 H 83 90 Respiratory 20 20 20 Rate Blood Pressure 109/73 111/73 105/72 O2 Sat by Pulse 95 Oximetry (%) 07/02/17 07/02/17 02:00 06:00 Temperature 98.5 F 98.5 F Pulse Rate 99 H 86 Respiratory 20 20 Rate Blood Pressure 111/79 127/87 O2 Sat by Pulse Oximetry (%) Laboratory Results - last 24 hr 07/02/17 07/02/17 07/02/17 07:15 07:15 07:15 WBC 5.1 RBC 3.53 L Hgb 10.4 L Hct 31.3 L MCV 88.7 MCH 29.4 MCHC 33.1 RDW 14.0 Plt Count 112 L MPV 10.1 Neutrophils % 64.8 Lymphocytes % 23.1 D Monocytes % 8.2 Eosinophils % 3.6 Basophils % 0.3 PTT (Actin FS) Sodium 139 Potassium 3.0 L Chloride 101 Carbon Dioxide 25 Anion Gap 13 BUN 9 Creatinine 0.9 Creat Clearance w eGFR > 60 Random Glucose 93 Calcium 7.8 L Ferritin Cancelled 175.371 Total Bilirubin 1.2 H Direct Bilirubin 0.4 H AST 46 H ALT 54 Alkaline Phosphatase 156 H Total Protein 6.6 Albumin 3.0 L Triglycerides Cancelled 94 Cholesterol Cancelled 160 Total LDL Cholesterol Cancelled 55 HDL Cholesterol Cancelled 88 H Total Amylase 145 H Lipase 1662 H 07/02/17 07:15 WBC RBC Hgb Hct MCV MCH MCHC RDW Plt Count MPV Neutrophils % Lymphocytes % Monocytes % Eosinophils % Basophils % PTT (Actin FS) 44.5 H D Sodium Potassium Chloride Carbon Dioxide Anion Gap BUN Creatinine Creat Clearance w eGFR Random Glucose Calcium Ferritin Total Bilirubin Direct Bilirubin AST ALT Alkaline Phosphatase Total Protein Albumin Triglycerides Cholesterol Total LDL Cholesterol HDL Cholesterol Total Amylase Lipase hypokalemic Assessment: 07/02/17 09:47 compoleted detox, still hypokalemia, supplement k, consdier tansfer to inpatient rehab if patietn willing, arrqnge for bed and check insurance first. jose armando Clayton MD
[2017-07-02] MEDS: POTASSIUM CHLORIDE TABS 20 MEQ TABLET.ER (FP) PO SCH ×2 (10:21→21:39)
[2017-07-02] MEDS: PRENATAL VITAMINS W/ FOLIC ACID TABLET (FP) PO SCH (10:22)
--- NOTE | 2017-07-02 10:42 | PN ---
Progress Note, Physician History of Present Illness: No acute events. Not in distress, or pain. - Current Medication List Current Medications: Active Medications Heparin Sodium (Porcine) (Heparin -) 1,000 unit IVPUSH PRN PRN PRN Reason: Heparin Heparin Sodium (Porcine) (Heparin -) 5,000 unit IVPUSH PRN PRN PRN Reason: Heparin Heparin Sodium (Porcine) 25, (000 unit/ Sodium Chloride) 500 mls @ 16 mls/hr IV TITR LESLY; 800 UNIT/HR PRN Reason: Protocol Last Admin: 07/01/17 23:45 Dose: 800 unit/hr, 16 mls/hr Metoprolol Tartrate (Lopressor -) 25 mg PO TID [facility] Last Admin: 07/02/17 06:26 Dose: 25 mg Ondansetron HCl (Zofran Odt -) 4 mg SL Q6H PRN PRN Reason: NAUSEA AND/OR VOMITING Last Admin: 06/30/17 11:10 Dose: 4 mg Potassium Chloride (K-Dur -) 20 meq PO BID [facility] Last Admin: 07/02/17 10:21 Dose: 20 meq Multivit/Folic Acid/Iron ( Vitamins (Sjr) -) 1 tab PO DAILY [facility] Last Admin: 07/02/17 10:22 Dose: 1 tab Thiamine HCl (Vitamin B1 -) 100 mg PO HS [facility] Last Admin: 07/01/17 21:38 Dose: 100 mg Tramadol HCl (Ultram -) 50 mg PO Q6H PRN PRN Reason: PAIN LEVEL 1 - 3 Last Admin: 07/01/17 09:35 Dose: 50 mg - Objective Vital Signs: Vital Signs Temperature 98.5 F 07/02/17 06:00 Pulse Rate 86 07/02/17 06:00 Respiratory Rate 20 07/02/17 06:00 Blood Pressure 127/87 07/02/17 06:00 O2 Sat by Pulse Oximetry (%) 95 07/01/17 22:00 Eyes: Yes: Conjunctiva Clear HENT: Yes: Atraumatic Cardiovascular: Yes: Regular Rate and Rhythm Respiratory: Yes: Regular Gastrointestinal: Yes: Soft. No: Melena, Tenderness, Vomiting Neurological: Yes: Alert Labs: CBC, BMP 07/02/17 07:15 07/02/17 07:15 INR, PTT INR 1.06 (0.82-1.09) 06/30/17 18:25 Laboratory Results - last 24 hr 07/02/17 07/02/17 07/02/17 07:15 07:15 07:15 WBC 5.1 RBC 3.53 L Hgb 10.4 L Hct 31.3 L MCV 88.7 MCH 29.4 MCHC 33.1 RDW 14.0 Plt Count 112 L MPV 10.1 Neutrophils % 64.8 Lymphocytes % 23.1 D Monocytes % 8.2 Eosinophils % 3.6 Basophils % 0.3 PTT (Actin FS) Sodium 139 Potassium 3.0 L Chloride 101 Carbon Dioxide 25 Anion Gap 13 BUN 9 Creatinine 0.9 Creat Clearance w eGFR > 60 Random Glucose 93 Calcium 7.8 L Ferritin Cancelled 175.371 Total Bilirubin 1.2 H Direct Bilirubin 0.4 H AST 46 H ALT 54 Alkaline Phosphatase 156 H Total Protein 6.6 Albumin 3.0 L Triglycerides Cancelled 94 Cholesterol Cancelled 160 Total LDL Cholesterol Cancelled 55 HDL Cholesterol Cancelled 88 H Total Amylase 145 H Lipase 1662 H 07/02/17 07:15 WBC RBC Hgb Hct MCV MCH MCHC RDW Plt Count MPV Neutrophils % Lymphocytes % Monocytes % Eosinophils % Basophils % PTT (Actin FS) 44.5 H D Sodium Potassium Chloride Carbon Dioxide Anion Gap BUN Creatinine Creat Clearance w eGFR Random Glucose Calcium Ferritin Total Bilirubin Direct Bilirubin AST ALT Alkaline Phosphatase Total Protein Albumin Triglycerides Cholesterol Total LDL Cholesterol HDL Cholesterol Total Amylase Lipase Problem List - Problems (1) Atrial fibrillation Code(s): I48.91 - UNSPECIFIED ATRIAL FIBRILLATION (2) Chronic alcoholic pancreatitis Code(s): K86.0 - ALCOHOL-INDUCED CHRONIC PANCREATITIS Assessment/Plan Continue hydration IV/PO Antiemetics prn Continue PO as tolerated No need for daily lipase if asymptomatic ETOH abstinence will follow
--- NOTE | 2017-07-02 12:50 | EKG ---
Test Reason : Blood Pressure : / mmHG Vent. Rate : 094 BPM Atrial Rate : 080 BPM P-R Int : 000 ms QRS Dur : 090 ms QT Int : 368 ms P-R-T Axes : 000 095 037 degrees QTc Int : 460 ms ATRIAL FIBRILLATION NONSPECIFIC ST ABNORMALITY ABNORMAL ECG WHEN COMPARED WITH ECG OF 01-JUL-2017 10:05, NO SIGNIFICANT CHANGE WAS FOUND Confirmed by SANDHYA XIAO MD ([id number]) on 07/02/2017 12:49:54 PM Referred By: Confirmed By:SANDHYA XIAO MD
--- NOTE | 2017-07-02 13:32 | PN ---
Progress Note, Physician History of Present Illness: Pt seen and examined at bedside. She is awake and alert. She denies shortness of breath. - Current Medication List Current Medications: Active Medications Heparin Sodium (Porcine) (Heparin -) 1,000 unit IVPUSH PRN PRN PRN Reason: Heparin Heparin Sodium (Porcine) (Heparin -) 5,000 unit IVPUSH PRN PRN PRN Reason: Heparin Heparin Sodium (Porcine) 25, (000 unit/ Sodium Chloride) 500 mls @ 16 mls/hr IV TITR LESLY; 800 UNIT/HR PRN Reason: Protocol Last Admin: 07/01/17 23:45 Dose: 800 unit/hr, 16 mls/hr Metoprolol Tartrate (Lopressor -) 25 mg PO TID [facility] Last Admin: 07/02/17 06:26 Dose: 25 mg Ondansetron HCl (Zofran Odt -) 4 mg SL Q6H PRN PRN Reason: NAUSEA AND/OR VOMITING Last Admin: 06/30/17 11:10 Dose: 4 mg Potassium Chloride (K-Dur -) 20 meq PO BID [facility] Last Admin: 07/02/17 10:21 Dose: 20 meq Multivit/Folic Acid/Iron ( Vitamins (Sjr) -) 1 tab PO DAILY [facility] Last Admin: 07/02/17 10:22 Dose: 1 tab Thiamine HCl (Vitamin B1 -) 100 mg PO HS [facility] Last Admin: 07/01/17 21:38 Dose: 100 mg Tramadol HCl (Ultram -) 50 mg PO Q6H PRN PRN Reason: PAIN LEVEL 1 - 3 Last Admin: 07/01/17 09:35 Dose: 50 mg - Objective Vital Signs: Vital Signs Temperature 98.5 F 07/02/17 06:00 Pulse Rate 86 07/02/17 06:00 Respiratory Rate 20 07/02/17 06:00 Blood Pressure 127/87 07/02/17 06:00 O2 Sat by Pulse Oximetry (%) 95 07/01/17 22:00 Constitutional: Yes: Calm Eyes: Yes: Conjunctiva Clear HENT: Yes: Atraumatic Neck: Yes: Supple Cardiovascular: Yes: S1, S2 Respiratory: Yes: CTA Bilaterally Gastrointestinal: Yes: Normal Bowel Sounds, Soft Genitourinary: Yes: WNL Musculoskeletal: Yes: WNL Edema: No Neurological: Yes: Oriented Psychiatric: Yes: Oriented Labs: CBC, BMP 07/02/17 07:15 07/02/17 07:15 INR, PTT INR 1.06 (0.82-1.09) 06/30/17 18:25 Problem List - Problems (1) Atrial fibrillation Code(s): I48.91 - UNSPECIFIED ATRIAL FIBRILLATION (2) Hypotension Code(s): I95.9 - HYPOTENSION, UNSPECIFIED Qualifiers: Hypotension type: unspecified hypotension type Qualified Code(s): I95.9 - Hypotension, unspecified (3) Renal insufficiency Code(s): N28.9 - DISORDER OF KIDNEY AND URETER, UNSPECIFIED (4) Hypokalemia Code(s): E87.6 - HYPOKALEMIA Assessment/Plan Current Medications Generic Name Dose Route Start Last Admin Trade Name Freq PRN Reason Stop Dose Admin Heparin Sodium (Porcine) 1,000 unit 07/01/17 22:03 Heparin - IVPUSH PRN PRN Heparin Heparin Sodium (Porcine) 5,000 unit 07/01/17 22:03 Heparin - IVPUSH PRN PRN Heparin Heparin Sodium (Porcine) 25, 500 mls @ 16 mls/hr 07/01/17 22:15 07/01/17 23: 45 000 unit/ Sodium Chloride IV 800 unit/hr TITR LES[facility] 16 mls/hr Protocol Administration 800 UNIT/HR Metoprolol Tartrate 25 mg 06/30/17 22:00 07/02/17 06:26 Lopressor - PO 25 mg TID [facility] Administration Ondansetron HCl 4 mg 06/29/17 08:10 06/30/17 11:10 Zofran Odt - SL 4 mg Q6H PRN Administration NAUSEA AND/OR VOMITING Potassium Chloride 20 meq 07/02/17 10:00 07/02/17 10:21 K-Dur - PO 20 meq BID [facility] Administration Multivit/Folic Acid/Iron 1 tab 06/29/17 10:00 07/02/17 10:22 Vitamins (Sjr) - PO 1 tab DAILY [facility] Administration Thiamine HCl 100 mg 06/29/17 22:00 07/01/17 21:38 Vitamin B1 - PO 100 mg HS [facility] Administration Tramadol HCl 50 mg 06/30/17 16:37 07/01/17 09:35 Ultram - PO 50 mg Q6H PRN Administration PAIN LEVEL 1 - 3 Impression 1. GREGORIO 2. etoh abuse 3. diarrhea 4. paroxysmal A fib 5. HTN 6. HLD 7. DM 8. Ulcerative colitis 9. hypocalcemia Plan - agree with stopping fluids today - supplements potassium - will give an extra dose of potassium - check mag level - encourage PO intake - will follow PRN
[2017-07-02] MEDS ORDERED: POTASSIUM CHLORIDE TABS 20 MEQ TABLET.ER (FP) PO ONE (14:00)
--- NOTE | 2017-07-02 16:29 | PN ---
Progress Note, Physician Chief Complaint: Patient appears comfortable. She complains of weakness. She denies palpitation, chest pain or SOB. Telem shows persistent atrial fibrillation with mild VR (around 100 bpm). VR goes to 140 bpm occasionally. History of Present Illness: 66-year-old woman, alcoholic, with a history of diabetes, hypertension, GI bleed , hyperlipidemia, ulcerative colitis, paroxysmal atrial fibrillation, not on anticoagulation because of prior GI bleed (?), admitted with alcohol intoxication. Found to have persistent atrial fibrillation, severe dehydration, acute renal failure. She was seen by GI and neurology for alcoholic pancreatitis , and hallucination. She remains in persistent atrial fibrillation with improved VR. Echo 06/29/2017: Normal LV size and systolic function. Normal RV. Moderate calcification of AV of non-coronary artery cusp. - Current Medication List Current Medications: Active Medications Heparin Sodium (Porcine) (Heparin -) 1,000 unit IVPUSH PRN PRN PRN Reason: Heparin Heparin Sodium (Porcine) (Heparin -) 5,000 unit IVPUSH PRN PRN PRN Reason: Heparin Heparin Sodium (Porcine) 25, (000 unit/ Sodium Chloride) 500 mls @ 16 mls/hr IV TITR LESLY; 800 UNIT/HR PRN Reason: Protocol Last Admin: 07/01/17 23:45 Dose: 800 unit/hr, 16 mls/hr Metoprolol Tartrate (Lopressor -) 25 mg PO TID [facility] Last Admin: 07/02/17 14:06 Dose: 25 mg Ondansetron HCl (Zofran Odt -) 4 mg SL Q6H PRN PRN Reason: NAUSEA AND/OR VOMITING Last Admin: 06/30/17 11:10 Dose: 4 mg Potassium Chloride (K-Dur -) 20 meq PO BID [facility] Last Admin: 07/02/17 10:21 Dose: 20 meq Multivit/Folic Acid/Iron ( Vitamins (Sjr) -) 1 tab PO DAILY [facility] Last Admin: 07/02/17 10:22 Dose: 1 tab Thiamine HCl (Vitamin B1 -) 100 mg PO HS [facility] Last Admin: 07/01/17 21:38 Dose: 100 mg Tramadol HCl (Ultram -) 50 mg PO Q6H PRN PRN Reason: PAIN LEVEL 1 - 3 Last Admin: 07/01/17 09:35 Dose: 50 mg - Objective Vital Signs: Vital Signs Temperature 98 F 07/02/17 14:05 Pulse Rate 102 H 07/02/17 14:05 Respiratory Rate 20 07/02/17 14:05 Blood Pressure 115/66 07/02/17 14:05 O2 Sat by Pulse Oximetry (%) 95 07/01/17 22:00 Constitutional: Yes: No Distress, Calm, Poor Hygeine, Thin Eyes: Yes: Conjunctiva Clear, EOM Intact HENT: Yes: Atraumatic, Normocephalic Neck: Yes: Supple, Trachea Midline Cardiovascular: Yes: Tachycardia, Pulse Irregular Respiratory: Yes: Regular, CTA Bilaterally Gastrointestinal: Yes: Normal Bowel Sounds, Soft ...Rectal Exam: Yes: Deferred Edema: No Peripheral Pulses WNL: Yes Labs: CBC, BMP 07/02/17 07:15 07/02/17 07:15 INR, PTT INR 1.06 (0.82-1.09) 06/30/17 18:25 Assessment/Plan 66-year-old woman, alcoholic, with a history of diabetes, hypertension, GI bleed , hyperlipidemia, ulcerative colitis, paroxysmal atrial fibrillation, not on anticoagulation because of prior GI bleed (?), admitted with alcohol intoxication. Found to have persistent atrial fibrillation, severe dehydration, acute renal failure. She was seen by GI and neurology for alcoholic pancreatitis , and hallucination. She remains in persistent atrial fibrillation with improved VR. Echo 06/29/2017: Normal LV size and systolic function. Normal RV. Moderate calcification of AV of non-coronary artery cusp. Persistent atrial fibrillation with mild ventricular response. She has moderat to high risk of CVA (CHADS-VASc Score of 4: 4.8 - 6.7% stroke risk per year). Increase Metoprolol to 50 mg BID. Add Digoxin 0.125 mg daily. First dose 0.25 mg. Continue telemetry. GI evaluation for long-term anticoagulation. Continue IV heparin for now.
[2017-07-02] MEDS: THIAMINE HCL 100 MG TABLET (FP) PO SCH (21:39)
[2017-07-02] MEDS: HEPARIN - 25,000 UNIT in SODIUM CHLORIDE 495 ML IV SCH (22:00)
[2017-07-03] MEDS: METOPROLOL TARTRATE 25 MG TABLET (FP) PO SCH (05:32)
[2017-07-03] MEDS ORDERED: ONDANSETRON 4 MG TABLET PO PRN (06:03)
[2017-07-03 06:06] LABS: SERUM IRON SATURATION 25 % (15-55); TOTAL IRON BINDING CAPACITY 229 ug/dL (250-450); UIBC 171 ug/dL (118-369)
[2017-07-03 07:25] LABS: ALBUMIN 3.2 g/dl (3.4-5.0); ANION GAP 10 (8-16); BILIRUBIN,TOTAL 0.7 mg/dL (0.2-1.0); BLOOD UREA NITROGEN 10 mg/dL (7-18); CALCIUM 8.2 mg/dL (8.5-10.1); CHLORIDE 105 mmol/L (98-107); CO2 26 mmol/L (21-32); GLUCOSE,RANDOM 112 mg/dL (74-106); MAGNESIUM 1.3 mg/dL (1.8-2.4); PHOSPHOROUS 1.7 mg/dL (2.5-4.9); POTASSIUM 3.4 mmol/L (3.5-5.1); SGOT/AST 38 U/L (15-37); SGPT/ALT 51 U/L (12-78); SODIUM 141 mmol/L (136-145)
[2017-07-03 07:26] LABS: ALK PHOS 156 U/L (45-117); TOT PROT 6.5 g/dl (6.4-8.2)
[2017-07-03 07:43] LABS: BASO % 0.3 % (0-2.0); EOS % 2.8 % (0-4.5); HEMATOCRIT 32.4 % (32.4-45.2); HEMOGLOBIN 10.6 GM/dL (10.7-15.3); LYMPH % 21.9 % (8-40); MCH 29.2 pg (25.7-33.7); MCHC 32.6 g/dl (32.0-36.0); MEAN CELL VOLUME 89.5 fl (80-96); MEAN PLT VOLUME 10.2 fl (7.5-11.1); MONO % 10.3 % (3.8-10.2); NEUT % 64.7 % (42.8-82.8); PLATELET COUNT 126 K/MM3 (134-434); RBC 3.62 M/mm3 (3.60-5.2); RDW 14.4 % (11.6-15.6); WHITE BLOOD COUNT 5.2 K/mm3 (4.0-10.0)
--- NOTE | 2017-07-03 09:22 | PN ---
Progress Note, Physician History of Present Illness: C/O HIP AND BACK PAIN PT BETTER TODAY - Current Medication List Current Medications: Active Medications Heparin Sodium (Porcine) (Heparin -) 1,000 unit IVPUSH PRN PRN PRN Reason: Heparin Ondansetron HCl (Zofran -) 4 mg PO Q6H PRN PRN Reason: NAUSEA AND/OR VOMITING Potassium Chloride (K-Dur -) 20 meq PO BID [facility] Last Admin: 07/02/17 21:39 Dose: 20 meq Multivit/Folic Acid/Iron ( Vitamins (Sjr) -) 1 tab PO DAILY [facility] Last Admin: 07/02/17 10:22 Dose: 1 tab Thiamine HCl (Vitamin B1 -) 100 mg PO HS [facility] Last Admin: 07/02/17 21:39 Dose: 100 mg Tramadol HCl (Ultram -) 50 mg PO Q6H PRN PRN Reason: PAIN LEVEL 1 - 3 Last Admin: 07/01/17 09:35 Dose: 50 mg - Objective Vital Signs: Vital Signs Temperature 97.7 F 07/03/17 06:00 Pulse Rate 86 07/03/17 06:00 Respiratory Rate 18 07/03/17 06:00 Blood Pressure 104/75 07/03/17 06:00 O2 Sat by Pulse Oximetry (%) 98 07/03/17 06:00 Cardiovascular: Yes: Tachycardia, Pulse Irregular, S1, S2 Respiratory: Yes: Regular, CTA Bilaterally Gastrointestinal: Yes: Normal Bowel Sounds, Soft Labs: CBC, BMP 07/03/17 05:05 07/03/17 05:05 INR, PTT INR 1.06 (0.82-1.09) 06/30/17 18:25 Assessment/Plan - Problems (1) Hypotension Assessment/Plan: ivf fluids now BP is betgter 101/85 secondary to volume depletion echo Code(s): I95.9 - HYPOTENSION, UNSPECIFIED Qualifiers: Hypotension type: unspecified hypotension type Qualified Code(s): I95.9 - Hypotension, unspecified (2) Renal insufficiency Assessment/Plan: ivf renal evaluation trend creatinine GREGORIO most. likely to volume depletion renal sono to r/o outlet obstruction Code(s): N28.9 - DISORDER OF KIDNEY AND URETER, UNSPECIFIED (3) Alcohol dependence with uncomplicated withdrawal Assessment/Plan: detox consult librium vitamins thiamine Code(s): F10.230 - ALCOHOL DEPENDENCE WITH WITHDRAWAL, UNCOMPLICATED (4) Fall Assessment/Plan: LS spine xrays ordered PT eval Code(s): W19.XXXA - UNSPECIFIED FALL, INITIAL ENCOUNTER (5) Back Pain/Hip Pain Assessment/Plan: ORTHO XRAYS (6) Hallucinations Assessment/Plan: CT OF HEAD NAD NEURO (7) Pancreatitis Assessment/Plan: FOLLOW LABS GI F/U (8) Anemia Assessment/Plan: REPEAT STABLE GI FOLLOW UP (5) Afib Assessment/Plan: RATE IMPROVED--LOPRESSOR 50 TID DC HEPARIN ELIQUIS 5 BID
[2017-07-03] MEDS ORDERED: PT OWN MED DRAWER 7, Y5N ONE (09:24)
[2017-07-03] MEDS: APIXABAN 5 MG TABLET PO SCH ×2 (09:39→21:27)
[2017-07-03] MEDS: PRENATAL VITAMINS W/ FOLIC ACID TABLET (FP) PO SCH (09:39)
[2017-07-03] MEDS: POTASSIUM CHLORIDE TABS 20 MEQ TABLET.ER (FP) PO SCH ×2 (09:39→21:27)
--- NOTE | 2017-07-03 09:52 | PN ---
Progress Note, Physician Chief Complaint: Patient appears comfortable. She still complains of weakness and fatigue. She denies palpitation, chest pain or SOB. Telem shows persistent atrial fibrillation with mild VR (around 100 bpm). VR goes to 140-150 bpm occasionally. History of Present Illness: 66-year-old woman, alcoholic, with a history of diabetes, hypertension, GI bleed , hyperlipidemia, ulcerative colitis, paroxysmal atrial fibrillation, not on anticoagulation because of prior GI bleed (?), admitted with alcohol intoxication. Found to have persistent atrial fibrillation, severe dehydration, acute renal failure. She was seen by GI and neurology for alcoholic pancreatitis , and hallucination. She remains in persistent atrial fibrillation with improved VR. Echo 06/29/2017: Normal LV size and systolic function. Normal RV. Moderate calcification of AV of non-coronary artery cusp. - Current Medication List Current Medications: Active Medications Apixaban (Eliquis -) 5 mg PO BID [facility] Last Admin: 07/03/17 09:39 Dose: 5 mg Heparin Sodium (Porcine) (Heparin -) 1,000 unit IVPUSH PRN PRN PRN Reason: Heparin Metoprolol Tartrate (Lopressor -) 50 mg PO TID [facility] Ondansetron HCl (Zofran -) 4 mg PO Q6H PRN PRN Reason: NAUSEA AND/OR VOMITING Potassium Chloride (K-Dur -) 20 meq PO BID [facility] Last Admin: 07/03/17 09:39 Dose: 20 meq Multivit/Folic Acid/Iron ( Vitamins (Sjr) -) 1 tab PO DAILY [facility] Last Admin: 07/03/17 09:39 Dose: 1 tab Thiamine HCl (Vitamin B1 -) 100 mg PO HS [facility] Last Admin: 07/02/17 21:39 Dose: 100 mg Tramadol HCl (Ultram -) 50 mg PO Q6H PRN PRN Reason: PAIN LEVEL 1 - 3 Last Admin: 07/01/17 09:35 Dose: 50 mg - Objective Vital Signs: Vital Signs Temperature 98.3 F 07/03/17 09:33 Pulse Rate 98 H 07/03/17 09:33 Respiratory Rate 18 07/03/17 09:33 Blood Pressure 112/64 07/03/17 09:33 O2 Sat by Pulse Oximetry (%) 98 07/03/17 06:00 Constitutional: Yes: Well Nourished, No Distress, Calm Eyes: Yes: Conjunctiva Clear, EOM Intact HENT: Yes: Atraumatic, Normocephalic Neck: Yes: Supple, Trachea Midline Cardiovascular: Yes: Tachycardia, Pulse Irregular Respiratory: Yes: Regular, CTA Bilaterally Gastrointestinal: Yes: Normal Bowel Sounds, Soft ...Rectal Exam: Yes: Deferred Extremities: Yes: WNL Edema: No Peripheral Pulses WNL: Yes Labs: CBC, BMP 07/03/17 05:05 07/03/17 05:05 INR, PTT INR 1.06 (0.82-1.09) 06/30/17 18:25 Assessment/Plan 66-year-old woman, alcoholic, with a history of diabetes, hypertension, GI bleed , hyperlipidemia, ulcerative colitis, paroxysmal atrial fibrillation, not on anticoagulation because of prior GI bleed (?), admitted with alcohol intoxication. Found to have persistent atrial fibrillation, severe dehydration, acute renal failure. She was seen by GI and neurology for alcoholic pancreatitis , and hallucination. She remains in persistent atrial fibrillation with improved VR. Echo 06/29/2017: Normal LV size and systolic function. Normal RV. Moderate calcification of AV of non-coronary artery cusp. Persistent atrial fibrillation with mild ventricular response. She has moderat to high risk of CVA (CHADS-VASc Score of 4: 4.8 - 6.7% stroke risk per year). Agree with Eliquis for stroke prevention. Metoprolol increased to 50 mg BID. Add Digoxin 0.125 mg daily. First dose 0.25 mg. Continue telemetry.
[2017-07-03] MEDS ORDERED: DIGOXIN 0.25 MG TABLET (FP) PO ONE (10:00)
[2017-07-03] MEDS: METOPROLOL TARTRATE 50 MG TABLET (FP) PO SCH ×2 (15:52→21:27)
--- NOTE | 2017-07-03 15:55 | PN ---
Progress Note, Physician History of Present Illness: Pt seen and examined at bedside. She says she feels better. She denies shortness of breath. - Current Medication List Current Medications: Active Medications Apixaban (Eliquis -) 5 mg PO BID [facility] Last Admin: 07/03/17 09:39 Dose: 5 mg Digoxin (Lanoxin -) 0.125 mg PO DAILY [facility] Heparin Sodium (Porcine) (Heparin -) 1,000 unit IVPUSH PRN PRN PRN Reason: Heparin Metoprolol Tartrate (Lopressor -) 50 mg PO TID [facility] Ondansetron HCl (Zofran -) 4 mg PO Q6H PRN PRN Reason: NAUSEA AND/OR VOMITING Potassium Chloride (K-Dur -) 20 meq PO BID [facility] Last Admin: 07/03/17 09:39 Dose: 20 meq Multivit/Folic Acid/Iron ( Vitamins (Sjr) -) 1 tab PO DAILY [facility] Last Admin: 07/03/17 09:39 Dose: 1 tab Thiamine HCl (Vitamin B1 -) 100 mg PO HS [facility] Last Admin: 07/02/17 21:39 Dose: 100 mg Tramadol HCl (Ultram -) 50 mg PO Q6H PRN PRN Reason: PAIN LEVEL 1 - 3 Last Admin: 07/01/17 09:35 Dose: 50 mg - Objective Vital Signs: Vital Signs Temperature 97.8 F 07/03/17 15:00 Pulse Rate 106 H 07/03/17 15:00 Respiratory Rate 20 07/03/17 15:00 Blood Pressure 130/80 07/03/17 15:00 O2 Sat by Pulse Oximetry (%) 98 07/03/17 09:00 Constitutional: Yes: Calm Eyes: Yes: Conjunctiva Clear HENT: Yes: Atraumatic Neck: Yes: Supple Cardiovascular: Yes: S1, S2 Respiratory: Yes: CTA Bilaterally Gastrointestinal: Yes: Soft Genitourinary: Yes: WNL Musculoskeletal: Yes: WNL Edema: No Neurological: Yes: Oriented Psychiatric: Yes: Oriented Labs: CBC, BMP 07/03/17 05:05 07/03/17 05:05 INR, PTT INR 1.06 (0.82-1.09) 06/30/17 18:25 Problem List - Problems (1) Atrial fibrillation Code(s): I48.91 - UNSPECIFIED ATRIAL FIBRILLATION (2) Hypotension Code(s): I95.9 - HYPOTENSION, UNSPECIFIED Qualifiers: Hypotension type: unspecified hypotension type Qualified Code(s): I95.9 - Hypotension, unspecified (3) Renal insufficiency Code(s): N28.9 - DISORDER OF KIDNEY AND URETER, UNSPECIFIED (4) Hypokalemia Code(s): E87.6 - HYPOKALEMIA Assessment/Plan Current Medications Generic Name Dose Route Start Last Admin Trade Name Freq PRN Reason Stop Dose Admin Apixaban 5 mg 07/03/17 10:00 07/03/17 09:39 Eliquis - PO 5 mg BID [facility] Administration Digoxin 0.125 mg 07/04/17 10:00 Lanoxin - PO DAILY [facility] Heparin Sodium (Porcine) 1,000 unit 07/01/17 22:03 Heparin - IVPUSH PRN PRN Heparin Metoprolol Tartrate 50 mg 07/03/17 14:00 07/03/17 15:52 Lopressor - PO 50 mg TID [facility] Administration Ondansetron HCl 4 mg 07/03/17 06:03 Zofran - PO Q6H PRN NAUSEA AND/OR VOMITING Potassium Chloride 20 meq 07/02/17 10:00 07/03/17 09:39 K-Dur - PO 20 meq BID [facility] Administration Multivit/Folic Acid/Iron 1 tab 06/29/17 10:00 07/03/17 09:39 Vitamins (Sjr) - PO 1 tab DAILY [facility] Administration Thiamine HCl 100 mg 06/29/17 22:00 07/02/17 21:39 Vitamin B1 - PO 100 mg HS [facility] Administration Tramadol HCl 50 mg 06/30/17 16:37 07/01/17 09:35 Ultram - PO 50 mg Q6H PRN Administration PAIN LEVEL 1 - 3 Laboratory Tests 07/03/17 05:05 Potassium 3.4 L Phosphorus 1.7 L Magnesium 1.3 L Impression 1. GREGORIO 2. etoh abuse 3. diarrhea 4. paroxysmal A fib 5. HTN 6. HLD 7. DM 8. Ulcerative colitis 9. hypocalcemia Plan - replace magnesium and phos - will give another dose of potassium - avoid po mag as she had diarrhea - can stop fluids - encourage PO intake - will follow Dr Weir
[2017-07-03] MEDS ORDERED: POTASSIUM CHLORIDE TABS 20 MEQ TABLET.ER (FP) PO ONE (16:00)
[2017-07-03] MEDS ORDERED: MAGNESIUM SULF 50% (8.12 MEQ/2 ML-1 GM VIAL) IVPB ONE (16:15)
[2017-07-03] MEDS: NAPH,MB-DB/K PH,MBDB POWDER PACKET PO SCH ×2 (17:50→21:27)
[2017-07-03] MEDS: THIAMINE HCL 100 MG TABLET (FP) PO SCH (21:27)
[2017-07-04] MEDS: NAPH,MB-DB/K PH,MBDB POWDER PACKET PO SCH ×3 (05:41→21:19)
[2017-07-04] MEDS: METOPROLOL TARTRATE 50 MG TABLET (FP) PO SCH ×3 (05:41→21:18)
[2017-07-04 07:21] LABS: HEMATOCRIT 33.4 % (32.4-45.2); HEMOGLOBIN 10.9 GM/dL (10.7-15.3); MCH 29.6 pg (25.7-33.7); MCHC 32.7 g/dl (32.0-36.0); MEAN CELL VOLUME 90.5 fl (80-96); MEAN PLT VOLUME 10.1 fl (7.5-11.1); PLATELET COUNT 162 K/MM3 (134-434); RBC 3.69 M/mm3 (3.60-5.2); RDW 14.4 % (11.6-15.6); WHITE BLOOD COUNT 5.7 K/mm3 (4.0-10.0)
[2017-07-04 07:49] LABS: CHLORIDE 105 mmol/L (98-107); POTASSIUM 4.2 mmol/L (3.5-5.1); SODIUM 139 mmol/L (136-145)
[2017-07-04 07:57] LABS: ALBUMIN 3.2 g/dl (3.4-5.0); ALK PHOS 153 U/L (45-117); ANION GAP 12 (8-16); BILIRUBIN,TOTAL 0.8 mg/dL (0.2-1.0); BLOOD UREA NITROGEN 11 mg/dL (7-18); CALCIUM 8.6 mg/dL (8.5-10.1); CO2 22 mmol/L (21-32); GLUCOSE,RANDOM 152 mg/dL (74-106); MAGNESIUM 1.9 mg/dL (1.8-2.4); PHOSPHOROUS 2.1 mg/dL (2.5-4.9); SGOT/AST 35 U/L (15-37); SGPT/ALT 53 U/L (12-78); TOT PROT 6.9 g/dl (6.4-8.2)
[2017-07-04 08:07] LABS: ALPHA 2 MACROGLOBULINS,QN 205 mg/dL (110-276); ALT(SGPT)P5P 59 IU/L (0-40); CHOLESTEROL TOTAL 149 mg/dL (100-199); FIBROSIS SCORE- 0.48 (0.00-0.21); GGT= 540 IU/L (0-60); GLUCOSE SERUM 102 mg/dL (65-99); HEIGHT. 62 Inches (.); WEIGHT. 150 LBS (.)
--- NOTE | 2017-07-04 08:42 | PN ---
Progress Note, Physician History of Present Illness: No acute events. Not in distress, or pain. Ambulating - Current Medication List Current Medications: Active Medications Apixaban (Eliquis -) 5 mg PO BID [facility] Last Admin: 07/03/17 21:27 Dose: 5 mg Digoxin (Lanoxin -) 0.125 mg PO DAILY [facility] Metoprolol Tartrate (Lopressor -) 50 mg PO TID [facility] Last Admin: 07/04/17 05:41 Dose: 50 mg Ondansetron HCl (Zofran -) 4 mg PO Q6H PRN PRN Reason: NAUSEA AND/OR VOMITING Last Admin: 07/04/17 04:52 Dose: 4 mg Potassium Chloride (K-Dur -) 20 meq PO BID [facility] Last Admin: 07/03/17 21:27 Dose: 20 meq Potassium Phos/Sodium Phos (Phos-Nak Packet -) 1 packet PO TID [facility] Last Admin: 07/04/17 05:41 Dose: 1 packet Multivit/Folic Acid/Iron ( Vitamins (Sjr) -) 1 tab PO DAILY [facility] Last Admin: 07/03/17 09:39 Dose: 1 tab Thiamine HCl (Vitamin B1 -) 100 mg PO HS [facility] Last Admin: 07/03/17 21:27 Dose: 100 mg - Objective Vital Signs: Vital Signs Temperature 978.6 F H 07/04/17 06:00 Pulse Rate 93 H 07/04/17 06:00 Respiratory Rate 19 07/04/17 06:00 Blood Pressure 133/99 07/04/17 06:00 O2 Sat by Pulse Oximetry (%) 97 07/03/17 21:00 Constitutional: Yes: No Distress, Calm Eyes: Yes: Conjunctiva Clear HENT: Yes: Atraumatic Neck: Yes: Supple Cardiovascular: No: Bradycardia, Tachycardia Respiratory: Yes: Regular Gastrointestinal: Yes: Soft. No: Melena, Rectal Bleeding, Tenderness, Tenderness, Rebound, Vomiting Neurological: Yes: Alert, Oriented Labs: CBC, BMP 07/04/17 06:55 INR, PTT INR 1.06 (0.82-1.09) 06/30/17 18:25 CBCD WBC 5.7 K/mm3 (4.0-10.0) 07/04/17 06:55 RBC 3.69 M/mm3 (3.60-5.2) 07/04/17 06:55 Hgb 10.9 GM/dL (10.7-15.3) 07/04/17 06:55 Hct 33.4 % (32.4-45.2) 07/04/17 06:55 MCV 90.5 fl (80-96) 07/04/17 06:55 MCHC 32.7 g/dl (32.0-36.0) 07/04/17 06:55 RDW 14.4 % (11.6-15.6) 07/04/17 06:55 Plt Count 162 K/MM3 (134-434) D 07/04/17 06:55 MPV 10.1 fl (7.5-11.1) 07/04/17 06:55 CMP Sodium 139 mmol/L (136-145) 07/04/17 06:55 Potassium 4.2 mmol/L (3.5-5.1) 07/04/17 06:55 Chloride 105 mmol/L (98-107) 07/04/17 06:55 Carbon Dioxide 22 mmol/L (21-32) 07/04/17 06:55 Anion Gap 12 (8-16) 07/04/17 06:55 BUN 11 mg/dL (7-18) 07/04/17 06:55 Creatinine 1.0 mg/dL (0.55-1.02) 07/04/17 06:55 Creat Clearance w eGFR 55.64 (>60) 07/04/17 06:55 Glucose 102 mg/dL (65-99) H 07/02/17 07:15 Calcium 8.6 mg/dL (8.5-10.1) 07/04/17 06:55 Total Bilirubin 0.8 mg/dL (0.2-1.0) 07/04/17 06:55 AST 35 U/L (15-37) 07/04/17 06:55 ALT 53 U/L (12-78) 07/04/17 06:55 Alkaline Phosphatase 153 U/L (45-117) H 07/04/17 06:55 Total Protein 6.9 g/dl (6.4-8.2) 07/04/17 06:55 Albumin 3.2 g/dl (3.4-5.0) L 07/04/17 06:55 Problem List - Problems (1) Atrial fibrillation Code(s): I48.91 - UNSPECIFIED ATRIAL FIBRILLATION (2) Chronic alcoholic pancreatitis Code(s): K86.0 - ALCOHOL-INDUCED CHRONIC PANCREATITIS Assessment/Plan Continue hydration IV/PO Antiemetics prn Continue PO as tolerated No need for daily lipase if asymptomatic ETOH abstinence will follow
--- NOTE | 2017-07-04 09:03 | PN ---
Progress Note, Physician - Current Medication List Current Medications: Active Medications Apixaban (Eliquis -) 5 mg PO BID [facility] Last Admin: 07/03/17 21:27 Dose: 5 mg Digoxin (Lanoxin -) 0.125 mg PO DAILY [facility] Metoprolol Tartrate (Lopressor -) 50 mg PO TID [facility] Last Admin: 07/04/17 05:41 Dose: 50 mg Ondansetron HCl (Zofran -) 4 mg PO Q6H PRN PRN Reason: NAUSEA AND/OR VOMITING Last Admin: 07/04/17 04:52 Dose: 4 mg Potassium Chloride (K-Dur -) 20 meq PO BID [facility] Last Admin: 07/03/17 21:27 Dose: 20 meq Potassium Phos/Sodium Phos (Phos-Nak Packet -) 1 packet PO TID [facility] Last Admin: 07/04/17 05:41 Dose: 1 packet Multivit/Folic Acid/Iron ( Vitamins (Sjr) -) 1 tab PO DAILY [facility] Last Admin: 07/03/17 09:39 Dose: 1 tab Thiamine HCl (Vitamin B1 -) 100 mg PO HS [facility] Last Admin: 07/03/17 21:27 Dose: 100 mg - Objective Vital Signs: Vital Signs Temperature 978.6 F H 07/04/17 06:00 Pulse Rate 93 H 07/04/17 06:00 Respiratory Rate 19 07/04/17 06:00 Blood Pressure 133/99 07/04/17 06:00 O2 Sat by Pulse Oximetry (%) 97 07/03/17 21:00 Cardiovascular: Yes: Tachycardia, S1, S2 Respiratory: Yes: Regular, CTA Bilaterally Gastrointestinal: Yes: Normal Bowel Sounds, Soft Labs: CBC, BMP 07/04/17 06:55 07/04/17 06:55 INR, PTT INR 1.06 (0.82-1.09) 06/30/17 18:25 Assessment/Plan - Problems (1) Hypotension Assessment/Plan: ivf fluids now BP is betgter 101/85 secondary to volume depletion echo Code(s): I95.9 - HYPOTENSION, UNSPECIFIED Qualifiers: Hypotension type: unspecified hypotension type Qualified Code(s): I95.9 - Hypotension, unspecified (2) Renal insufficiency Assessment/Plan: OFF ivf renal evaluation trend creatinine GREGORIO most. likely to volume depletion renal sono to r/o outlet obstruction Code(s): N28.9 - DISORDER OF KIDNEY AND URETER, UNSPECIFIED (3) Alcohol dependence with uncomplicated withdrawal Assessment/Plan: detox consult librium vitamins thiamine Code(s): F10.230 - ALCOHOL DEPENDENCE WITH WITHDRAWAL, UNCOMPLICATED (4) Fall Assessment/Plan: LS spine xrays ordered PT eval Code(s): W19.XXXA - UNSPECIFIED FALL, INITIAL ENCOUNTER (5) Back Pain/Hip Pain Assessment/Plan: ORTHO XRAYS (6) Hallucinations Assessment/Plan: CT OF HEAD NAD NEURO (7) Pancreatitis Assessment/Plan: FOLLOW LABS GI F/U (8) Anemia Assessment/Plan: REPEAT STABLE GI FOLLOW UP (5) Afib Assessment/Plan: RATE IMPROVED--LOPRESSOR TO 100 BID DC HEPARIN ELIQUIS 5 BID
[2017-07-04] MEDS ORDERED: PT OWN MED DRAWER 7, Y5N ONE (09:19)
[2017-07-04] MEDS: DIGOXIN 0.125 MG TABLET (FP) PO SCH (09:33)
[2017-07-04] MEDS: APIXABAN 5 MG TABLET PO SCH ×2 (09:33→21:20)
[2017-07-04] MEDS: POTASSIUM CHLORIDE TABS 20 MEQ TABLET.ER (FP) PO SCH ×2 (09:34→21:19)
[2017-07-04] MEDS: PRENATAL VITAMINS W/ FOLIC ACID TABLET (FP) PO SCH (09:34)
--- NOTE | 2017-07-04 11:27 | PN ---
Progress Note, Physician History of Present Illness: Pt seen and examined. Pt called an requested to be seen again today. She feels her appetite is a little better. She is eager to go home. She says diarrhea is improved. - Current Medication List Current Medications: Active Medications Apixaban (Eliquis -) 5 mg PO BID [facility] Last Admin: 07/04/17 09:33 Dose: 5 mg Digoxin (Lanoxin -) 0.125 mg PO DAILY [facility] Last Admin: 07/04/17 09:33 Dose: 0.125 mg Metoprolol Tartrate (Lopressor -) 100 mg PO BID [facility] Last Admin: 07/04/17 09:33 Dose: 100 mg Ondansetron HCl (Zofran -) 4 mg PO Q6H PRN PRN Reason: NAUSEA AND/OR VOMITING Last Admin: 07/04/17 04:52 Dose: 4 mg Potassium Chloride (K-Dur -) 20 meq PO BID [facility] Last Admin: 07/04/17 09:34 Dose: 20 meq Potassium Phos/Sodium Phos (Phos-Nak Packet -) 1 packet PO TID [facility] Last Admin: 07/04/17 05:41 Dose: 1 packet Multivit/Folic Acid/Iron ( Vitamins (Sjr) -) 1 tab PO DAILY [facility] Last Admin: 07/04/17 09:34 Dose: 1 tab Thiamine HCl (Vitamin B1 -) 100 mg PO HS [facility] Last Admin: 07/03/17 21:27 Dose: 100 mg - Objective Vital Signs: Vital Signs Temperature 978.6 F H 07/04/17 09:14 Pulse Rate 96 H 07/04/17 09:33 Respiratory Rate 19 07/04/17 09:14 Blood Pressure 124/77 07/04/17 09:14 O2 Sat by Pulse Oximetry (%) 97 07/04/17 09:00 Constitutional: Yes: Calm Eyes: Yes: Conjunctiva Clear HENT: Yes: Atraumatic Neck: Yes: Supple Cardiovascular: Yes: S1, S2 Respiratory: Yes: CTA Bilaterally Gastrointestinal: Yes: Soft Genitourinary: Yes: WNL Musculoskeletal: Yes: WNL Extremities: Yes: WNL Edema: No Neurological: Yes: Oriented Psychiatric: Yes: Oriented Labs: CBC, BMP 07/04/17 06:55 07/04/17 06:55 INR, PTT INR 1.06 (0.82-1.09) 06/30/17 18:25 Problem List - Problems (1) Atrial fibrillation Code(s): I48.91 - UNSPECIFIED ATRIAL FIBRILLATION (2) Hypotension Code(s): I95.9 - HYPOTENSION, UNSPECIFIED Qualifiers: Hypotension type: unspecified hypotension type Qualified Code(s): I95.9 - Hypotension, unspecified (3) Renal insufficiency Code(s): N28.9 - DISORDER OF KIDNEY AND URETER, UNSPECIFIED (4) Hypokalemia Code(s): E87.6 - HYPOKALEMIA Assessment/Plan Current Medications Generic Name Dose Route Start Last Admin Trade Name Freq PRN Reason Stop Dose Admin Apixaban 5 mg 07/03/17 10:00 07/04/17 09:33 Eliquis - PO 5 mg BID [facility] Administration Digoxin 0.125 mg 07/04/17 10:00 07/04/17 09:33 Lanoxin - PO 0.125 mg DAILY [facility] Administration Metoprolol Tartrate 100 mg 07/04/17 10:00 07/04/17 09:33 Lopressor - PO 100 mg BID [facility] Administration Ondansetron HCl 4 mg 07/03/17 06:03 07/04/17 04:52 Zofran - PO 4 mg Q6H PRN Administration NAUSEA AND/OR VOMITING Potassium Chloride 20 meq 07/02/17 10:00 07/04/17 09:34 K-Dur - PO 20 meq BID [facility] Administration Potassium Phos/Sodium Phos 1 packet 07/03/17 16:00 07/04/17 05:41 Phos-Nak Packet - PO 1 packet TID [facility] Administration Multivit/Folic Acid/Iron 1 tab 06/29/17 10:00 07/04/17 09:34 Vitamins (Sjr) - PO 1 tab DAILY [facility] Administration Thiamine HCl 100 mg 06/29/17 22:00 07/03/17 21:27 Vitamin B1 - PO 100 mg HS [facility] Administration Laboratory Tests 07/04/17 06:55 Phosphorus 2.1 L Magnesium 1.9 Impression 1. GREGORIO 2. etoh abuse 3. diarrhea 4. paroxysmal A fib 5. HTN 6. HLD 7. DM 8. Ulcerative colitis 9. hypocalcemia Plan - renal function is stable - mag level improved - cont phos supplements and monitor levels - encourage PO intake - rheum evl for positive jigar, can see as outpt - please check repeat UA as her initial had blood and protein - ltf are improving - discussed case and plan with pt at length Dr Weir
--- NOTE | 2017-07-04 14:03 | PN ---
Progress Note, Physician Chief Complaint: Cardiology consult fu Telem Afib HR at times 130s Feeling weak. No palpitations History of Present Illness: 66-year-old woman, alcoholic, with a history of diabetes, hypertension, GI bleed , hyperlipidemia, ulcerative colitis, paroxysmal atrial fibrillation, not on anticoagulation because of prior GI bleed (?), admitted with alcohol intoxication. Found to have persistent atrial fibrillation, severe dehydration, acute renal failure. She was seen by GI and neurology for alcoholic pancreatitis , and hallucination. She remains in persistent atrial fibrillation with improved VR. Echo 06/29/2017: Normal LV size and systolic function. Normal RV. Moderate calcification of AV of non-coronary artery cusp. - Current Medication List Current Medications: Active Medications Apixaban (Eliquis -) 5 mg PO BID [facility] Last Admin: 07/04/17 09:33 Dose: 5 mg Digoxin (Lanoxin -) 0.125 mg PO DAILY [facility] Last Admin: 07/04/17 09:33 Dose: 0.125 mg Metoprolol Tartrate (Lopressor -) 100 mg PO BID [facility] Last Admin: 07/04/17 09:33 Dose: 100 mg Ondansetron HCl (Zofran -) 4 mg PO Q6H PRN PRN Reason: NAUSEA AND/OR VOMITING Last Admin: 07/04/17 04:52 Dose: 4 mg Potassium Chloride (K-Dur -) 20 meq PO BID [facility] Last Admin: 07/04/17 09:34 Dose: 20 meq Potassium Phos/Sodium Phos (Phos-Nak Packet -) 1 packet PO TID [facility] Last Admin: 07/04/17 05:41 Dose: 1 packet Multivit/Folic Acid/Iron ( Vitamins (Sjr) -) 1 tab PO DAILY [facility] Last Admin: 07/04/17 09:34 Dose: 1 tab Thiamine HCl (Vitamin B1 -) 100 mg PO HS [facility] Last Admin: 07/03/17 21:27 Dose: 100 mg - Objective Vital Signs: Vital Signs Temperature 978.6 F H 07/04/17 09:14 Pulse Rate 96 H 07/04/17 09:33 Respiratory Rate 19 07/04/17 09:14 Blood Pressure 124/77 07/04/17 09:14 O2 Sat by Pulse Oximetry (%) 97 07/04/17 09:00 Constitutional: Yes: Well Nourished, No Distress Eyes: Yes: Conjunctiva Clear, EOM Intact HENT: Yes: Atraumatic, Normocephalic Neck: Yes: Supple, Trachea Midline Cardiovascular: Yes: Tachycardia, Pulse Irregular, S1, S2 Respiratory: Yes: Regular, CTA Bilaterally Gastrointestinal: Yes: Normal Bowel Sounds Edema: No Labs: CBC, BMP 07/04/17 06:55 07/04/17 06:55 INR, PTT INR 1.06 (0.82-1.09) 06/30/17 18:25 Problem List - Problems (1) Atrial fibrillation Code(s): I48.91 - UNSPECIFIED ATRIAL FIBRILLATION (2) Renal insufficiency Code(s): N28.9 - DISORDER OF KIDNEY AND URETER, UNSPECIFIED Assessment/Plan 66-year-old woman, alcoholic, with a history of diabetes, hypertension, GI bleed , hyperlipidemia, ulcerative colitis, paroxysmal atrial fibrillation, not on anticoagulation because of prior GI bleed (?), admitted with alcohol intoxication. Found to have persistent atrial fibrillation, severe dehydration, acute renal failure. She was seen by GI and neurology for alcoholic pancreatitis , and hallucination. She remains in persistent atrial fibrillation with improved VR. Echo 06/29/2017: Normal LV size and systolic function. Normal RV. Moderate calcification of AV of non-coronary artery cusp. Persistent atrial fibrillation with mild ventricular response. She has moderat to high risk of CVA (CHADS-VASc Score of 4: 4.8 - 6.7% stroke risk per year). Agree with Eliquis for stroke prevention. Metoprolol 100 mg bid increased today Cont Digoxin If HR still high will add CCB. Continue telemetry.
[2017-07-04] MEDS ORDERED: LORazepam 2 MG/ML SDV VIAL IVPUSH ONE (14:14)
[2017-07-04 17:28] LABS: URINE APPEARANCE CLEAR; URINE BILIRUBIN NEGATIVE (NEGATIVE); URINE BLOOD NEGATIVE (NEGATIVE); URINE COLOR AMBER; URINE GLUCOSE (UA) NEGATIVE (NEGATIVE); URINE KETONE NEGATIVE (NEGATIVE); URINE LEUK ESTERASE NEGATIVE (NEGATIVE); URINE NITRITE NEGATIVE (NEGATIVE); URINE UROBILINOGEN 4.0 E.U/dl mg/dL (0.2-1.0)
[2017-07-04 17:29] LABS: URINE PROTEIN 2+ (NEGATIVE)
[2017-07-04 17:33] LABS: EPI CELLS RARE /HPF (FEW); URINE MUCUS RARE
[2017-07-04] MEDS: diazePAM 5 MG TABLET PO PRN (18:15)
--- NOTE | 2017-07-04 18:20 | CON.PSY ---
Psychiatry Consult Chief Complaint: I have trouble sleeping. I have taken Ambien, ativan in the past,I am not depressed. Symptoms: reports: Sleep Disturbance, Restlessness - Previous Psychiatric Treatment Outpatient: Less than 6 mos ago Inpatient: None - Previous Substance Abuse Treatment Outpatient: More than 6 mos ago Inpatient: Within the last 12 months - Reason for Previous Treatment Reason for Previous Treatment: Alcohol Abuse - Current Medications Current Medications: Active Medications Apixaban (Eliquis -) 5 mg PO BID [facility] Last Admin: 07/04/17 09:33 Dose: 5 mg Diazepam (Valium -) 5 mg PO Q8H PRN PRN Reason: tremors Last Admin: 07/04/17 18:15 Dose: 5 mg Digoxin (Lanoxin -) 0.125 mg PO DAILY [facility] Last Admin: 07/04/17 09:33 Dose: 0.125 mg Metoprolol Tartrate (Lopressor -) 100 mg PO BID [facility] Last Admin: 07/04/17 09:33 Dose: 100 mg Ondansetron HCl (Zofran -) 4 mg PO Q6H PRN PRN Reason: NAUSEA AND/OR VOMITING Last Admin: 07/04/17 04:52 Dose: 4 mg Potassium Chloride (K-Dur -) 20 meq PO BID [facility] Last Admin: 07/04/17 09:34 Dose: 20 meq Potassium Phos/Sodium Phos (Phos-Nak Packet -) 1 packet PO TID [facility] Last Admin: 07/04/17 14:35 Dose: 1 packet Multivit/Folic Acid/Iron ( Vitamins (Sjr) -) 1 tab PO DAILY [facility] Last Admin: 07/04/17 09:34 Dose: 1 tab Thiamine HCl (Vitamin B1 -) 100 mg PO HS [facility] Last Admin: 07/03/17 21:27 Dose: 100 mg - Allergies Allergies: Allergies Allergy/AdvReac Type Severity Reaction Status Date / Time No Known Allergies Allergy Verified 06/28/17 03:17 - Current Living Status Usual Living Arrangement: Alone - Current Mental Status Evaluation Appearance: Disheveled Attitude: Cooperative - Affect Affect: Constrictive Appropriateness: Appropriate to Content - Mood Mood: Anxious - Speech/Language Expressive: Coherent - Psychomotor Activity Psychomotor Activity: Tremors - Thought Process Thought Process: Intact - Thought Content Hallucinations: Absent Delusions: Absent - Self Perception Self Perception: No Impairment - Cognition Attention: Alert Orientation: Time Memory, Immediate Recall: Intact Memory, Short Term: 3/3 Memory, Remote with Promptin/3 - Concentration Serial Sevens Intact: No Simple Calculations Intact: No - Abstraction Proverb Interpretation: Intact Judgement: Moderately Impaired - Insight Insight: Intact - Impulse Control Impulse Control: Minimally Impaired - Suicidal Ideation Suicidal Ideation: No - Homicidal Ideation Homicidal Ideation: No Assessment/Plan 1) Remeron 7.5mg earlene hs for sleep.
[2017-07-04] MEDS: THIAMINE HCL 100 MG TABLET (FP) PO SCH (21:19)
[2017-07-04] MEDS ORDERED: MIRTAZAPINE 15 MG TABLET (FP) PO SCH (22:00)
[2017-07-05 05:29] VITALS: TEMP 98.3
[2017-07-05] MEDS: NAPH,MB-DB/K PH,MBDB POWDER PACKET PO SCH ×2 (06:28→13:42)
[2017-07-05 06:52] LABS: HEMATOCRIT 32.6 % (32.4-45.2); HEMOGLOBIN 10.5 GM/dL (10.7-15.3); MCH 29.3 pg (25.7-33.7); MCHC 32.3 g/dl (32.0-36.0); MEAN CELL VOLUME 90.8 fl (80-96); MEAN PLT VOLUME 10.2 fl (7.5-11.1); PLATELET COUNT 178 K/MM3 (134-434); RBC 3.59 M/mm3 (3.60-5.2); RDW 14.7 % (11.6-15.6); WHITE BLOOD COUNT 4.7 K/mm3 (4.0-10.0)
[2017-07-05 07:09] VITALS: BP 100/65
--- NOTE | 2017-07-05 09:08 | PN ---
Progress Note (short form) - Note Progress Note: 66-year-old female, alcoholic, history of diabetes, hypertension, GI bleed, hyperlipidemia, ulcerative colitis, paroxysmal atrial fibrillation, not on anticoagulation because of prior GI bleed (?), Now admitted with alcohol intoxication. Found to have paroxysmal atrial fibrillation, severe dehydration, acute renal failure. As per nursing pt. had visual hallucinations-she denies these, states does not feel she is in alcohol withdrawl. Tells me she has been admitted for alcohol rehab x1 and has attended AA but has been unsuccesful in ceasing ETOH use. Only complaint is weakness in all 4 ext. upon admission which made it'difficult for me to move", denies focal weakness and now denies ext. weakness. FU : perisistent AFIB , starting AC - Past Medical History Cardio/Vascular: Yes: AFIB, HTN, Hyperlipdemia Gastrointestinal: Yes: Pancreatitis (current alcoholic pancreatitis) Hepatobiliary: Yes: Other (current alcoholic hepatitis and likely cirrhosis) Psych: Yes: Addictions (alcohol abuse ) Endocrine: Yes: Diabetes Mellitus - Past Surgical History Past Surgical History: Yes: None - Alcohol/Substance Use Hx Alcohol Use: Yes (pint of vodka daily) - Smoking History Smoking history: Never smoked Have you smoked in the past 12 months: No Aproximately how many cigarettes per day: 0 - Social History Usual Living Arrangement: Alone ADL: Independent 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 History of Recent Travel: No Home Medications - Allergies Allergies/Adverse Reactions: Allergies Allergy/AdvReac Type Severity Reaction Status Date / Time No Known Allergies Allergy Verified 06/28/17 03:17 - Home Medications Home Medications: Ambulatory Orders Acetaminophen [Tylenol .Regular Strength -] 650 mg PO Q6H PRN tablet 04/23/17 Amlodipine Besylate 10 mg PO DAILY #0 tab 04/23/17 Metoprolol Tartrate 25 mg PO BID #0 tab 04/23/17 Multivitamins [Multivit ([facility] Formulary)] 1 tab PO DAILY #30 tab 04/23/17 Pantoprazole Sodium [Protonix -] 40 mg PO DAILY #30 tablet.ec 04/23/17 Thiamine HCl [Vitamin B1 -] 100 mg PO BID #60 tablet 04/23/17 Valsartan [Diovan] 160 mg PO DAILY #0 tab 04/23/17 Family Disease History - Family Disease History Family Disease History: CA: Mother (brain cancer, alcoholic), Other: Father ( alcoholic), Mother, Brother (alcoholic) Physical Exam-Neuro Vital Signs: Vital Signs Temperature 98.3 F 07/05/17 07:07 Pulse Rate 87 07/05/17 07:07 Respiratory Rate 20 07/05/17 07:08 Blood Pressure 100/65 07/05/17 07:07 O2 Sat by Pulse Oximetry (%) 97 07/05/17 07:08 Labs: CBCD WBC 4.7 K/mm3 (4.0-10.0) 07/05/17 06:15 RBC 3.59 M/mm3 (3.60-5.2) L 07/05/17 06:15 Hgb 10.5 GM/dL (10.7-15.3) L 07/05/17 06:15 Hct 32.6 % (32.4-45.2) 07/05/17 06:15 MCV 90.8 fl (80-96) 07/05/17 06:15 MCHC 32.3 g/dl (32.0-36.0) 07/05/17 06:15 RDW 14.7 % (11.6-15.6) 07/05/17 06:15 Plt Count 178 K/MM3 (134-434) 07/05/17 06:15 MPV 10.2 fl (7.5-11.1) 07/05/17 06:15 CMP Sodium 139 mmol/L (136-145) 07/04/17 06:55 Potassium 4.2 mmol/L (3.5-5.1) 07/04/17 06:55 Chloride 105 mmol/L (98-107) 07/04/17 06:55 Carbon Dioxide 22 mmol/L (21-32) 07/04/17 06:55 Anion Gap 12 (8-16) 07/04/17 06:55 BUN 11 mg/dL (7-18) 07/04/17 06:55 Creatinine 1.0 mg/dL (0.55-1.02) 07/04/17 06:55 Creat Clearance w eGFR 55.64 (>60) 07/04/17 06:55 Glucose 102 mg/dL (65-99) H 07/02/17 07:15 Calcium 8.6 mg/dL (8.5-10.1) 07/04/17 06:55 Total Bilirubin 0.8 mg/dL (0.2-1.0) 07/04/17 06:55 AST 35 U/L (15-37) 07/04/17 06:55 ALT 53 U/L (12-78) 07/04/17 06:55 Alkaline Phosphatase 153 U/L (45-117) H 07/04/17 06:55 Total Protein 6.9 g/dl (6.4-8.2) 07/04/17 06:55 Albumin 3.2 g/dl (3.4-5.0) L 07/04/17 06:55 - Neuro Exam Cranial Nerves II-XII Intact: No (?? slight old left cent. facial deficit.) DTR's: 0 Left Achilles, 0 Right Achilles, 1+ Left Bicep, 1+ Right Bicep, 1+ Left Tricep, 1+ Right Tricep, 1+ Left Brachioradialis, 1+ Right Brachioradialis Babinski: Absent Response to light touch: Normal Response to pain prick: Normal Response to temperature: Normal Response to vibration: Abnormal (impaired in both feet.) Motor Strength: 5/5: Left Arm, Right Arm, Left Leg, Right Leg Gait: Deferred (Feels unsteady) Imaging - Results Cat Scan: Report Reviewed (W@ithout evidence of SDH/other acute cvhange.) Assessment/Plan Pt. with reported visual hallucinations which may have been due to ETOH withdrawl but now resolved. No evid. of seizures.
[2017-07-05] MEDS: DIGOXIN 0.125 MG TABLET (FP) PO SCH (09:10)
[2017-07-05] MEDS: POTASSIUM CHLORIDE TABS 20 MEQ TABLET.ER (FP) PO SCH (09:10)
[2017-07-05] MEDS: METOPROLOL TARTRATE 50 MG TABLET (FP) PO SCH (09:10)
[2017-07-05] MEDS: APIXABAN 5 MG TABLET PO SCH (09:10)
[2017-07-05] MEDS ORDERED: PT OWN MED DRAWER 7, Y5N ONE (09:12)
[2017-07-05] MEDS: PRENATAL VITAMINS W/ FOLIC ACID TABLET (FP) PO SCH (09:13)
[2017-07-05 09:14] VITALS: PULSE 100
--- NOTE | 2017-07-05 10:18 | PN ---
Progress Note (short form) - Note Progress Note: Pt seen and examined. She c/o a lot of pain in the low back and both hips. She is able to ambulate but with difficulty. We are waiting for xrays to be done on both hips and the LS spine. Will f/u
--- NOTE | 2017-07-05 10:29 | CONS ---
PHYSICAL MEDICINE REHABILITATION CONSULTATION DATE OF CONSULTATION: 07/03/2017 REFERRING PHYSICIAN: Rosalba Blue MD HISTORY OF PRESENT ILLNESS: The patient is a 66-year-old woman with past medical history of diabetes, alcoholism, GI bleed, and paroxysmal atrial fibrillation, who was admitted with intoxication on June 28, 2017. Patient may have been confused at the time, undergoing a CT of the head which showed no acute intracranial pathology. Patient's admitting blood work showed elevation in her BUN at 48 and creatinine 2.6. She was diagnosed with acute kidney injury and dehydration, started on IV fluids. She had some elevation in her AST 98 and ALT 121. Her albumin has been low on June 30 at 2.9. Last albumin 3.0 as of July 02, 2 018. Her potassium has also run low and as of July 02 was low at 3.0, but her BUN improved to 9, creatinine 0.9. She underwent multiple imaging studies including CT of the abdomen and pelvis which showed a fatty liver, x-rays of the lumbar spine which showed moderate facet arthropathy, and x-rays of the hips and pelvis which were negative. CBC has been very stable. Last taken on July 02, her hemoglobin was stable at 10.4, WBC stable at 5.1, and platelet count slightly low but stable at 112,000. Patient also has had elevation in her lipase on June 30 at 1858, on July 02 at 1662. She was seen by Physical Therapy, able to ambulate without assistive device but does feel generally weak. She denies any neck or back pain, any joint arthralgias, any numbness, tingling, or isolated weakness. Patient states she is moving her bowels and urinating. PAST MEDICAL AND SURGICAL HISTORY: As above. Also, a history of hyperlipidemia, ulcerative colitis. SOCIAL HISTORY: Lives alone. 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 No tobacco but drinks a pint of vodka per day. REVIEW OF SYSTEMS: No lightheadedness, dizziness. No blurry vision, double vision that is known. No nausea, vomiting, difficulty swallowing, difficulty chewing. No chest pain. No shortness of breath. No abdominal discomfort. No bowel or bladder incontinence, retention. No diarrhea. No fever or chills. Again, generally feels weak but no isolated weakness, numbness, tingling, or joint arthralgias. No significant weight change. PHYSICAL EXAMINATION: General: Patient is a well-developed, well-nourished woman, seen lying in bed, in no acute distress. HEENT: She is normocephalic and atraumatic. Her extraocular muscles appear intact. Poor dentition. Dry mucous membranes. Neck: Supple. Extremities: Without any pitting edema or calf tenderness. Skin: Without any breakdown or rash. Neuromuscular: She is awake, alert, fully oriented x3. Cranial nerves 2-12 are grossly intact. Neck is supple, good cervical range. Good strength and range in the upper extremities. She has mild proximal weakness in the lower extremities at 4/5 in hip flexors but good knee flexion and extension. Good dorsiflexion and plantar flexion. Normal sensation to light touch and pinprick as well as cold temperature. OVERALL IMPRESSION: 1. Deficits in mobility and activities of daily living. 2. Deconditioning. 3. Status post acute kidney injury due to dehydration. 4. Status post alcohol intoxication with admitted level of 399.5. 5. Paroxysmal atrial fibrillation, not on anticoagulation due to gastrointestinal bleed. 6. Elevated risk for deep venous thrombosis due to immobility. 7. History of gastrointestinal bleed. 8. History of diabetes. 9. Moderate facet arthropathy on x-ray of the lumbar spine but no current complaints. 10. Anemia. 11. Thrombocytopenia. 12. Fatty liver. 13. History of ulcerative colitis. PLAN/SUGGESTION: 1. Continue physical therapy at the bedside for bed mobility, transfers, gait training, strengthening, and reconditioning. 2. Continue out of bed to chair. 3. Ambulate with staff on the unit. 4. Subcutaneous heparin for DVT prophylaxis until discharged. 5. Monitor potassium level. 6. Encourage oral fluids. 7. Monitor lipase. 8. Skin precautions. 9. Moving bowels well. 10. Home when medically stable. Thank you for this referral. GHISLAINE SEGUNDO M.D. ANDREI/[id number]
[2017-07-05] MEDS: diazePAM 5 MG TABLET PO PRN (10:40)
--- NOTE | 2017-07-05 10:56 | DS ---
Physical Examination Vital Signs: Vital Signs Temperature 98.3 F 07/05/17 07:07 Pulse Rate 100 H 07/05/17 09:10 Respiratory Rate 20 07/05/17 07:08 Blood Pressure 100/65 07/05/17 07:07 O2 Sat by Pulse Oximetry (%) 97 07/05/17 07:08 Constitutional: Yes: Calm, Thin Cardiovascular: Yes: Regular Rate and Rhythm, S1, S2 Respiratory: Yes: CTA Bilaterally Gastrointestinal: Yes: Normal Bowel Sounds, Soft Edema: No Labs: CBC, BMP 07/05/17 06:15 07/04/17 06:55 Discharge Summary Reason For Visit: RENAL INSUFFICIENCY,HYPOTENSION,FALL Current Active Problems Atrial fibrillation (Acute) Chronic alcoholic pancreatitis (Acute) Hypotension (Acute) Renal insufficiency (Acute) Hospital Course: Primary Care Physician PCP: Shan Nino - Admission History of Present Illness: 66 F with h/o ETOH abuse, HTN, presents to ER for EtOH intoxication. Patient has visited the ER yesterday and the day before for same complaint. Patient states that she has been drinking a lot recently due to stressors in her life. She reports that she has been compliant with her medication. States that she hasn't been eating much recently nor drinking much fluids besides EtOH. She refused detox when offered. Patient also has an abrasion on the bridge of her nose and states she has fallen at some point recently. patient says she has not eaten in 3 days but did drink 3 glasses alcohol last night and one glass today then she started having diarrhea since today. she says she fell and has back pain History Source: Patient - Past Medical History Cardiovascular: Yes: HTN Gastrointestinal: Yes: Irritable Bowel Disease, Ulcerative Colitis - Smoking History Smoking history: Never smoked Have you smoked in the past 12 months: No Aproximately how many cigarettes per day: 0 - Alcohol/Substance Use Hx Alcohol Use: Yes (last drink was today prior to comming to ER hospital course: patient admitted to telemetry- afib on metoprolol and iv heparin to eliquis librium detox protocol completed and recommended in patient rehab had renal sono done had thickening of endometrial stripping will need transvaginal ultrasound as outpatient ct scan : diffuse fatty infiltration of liver neurology evaluation noted : visual hallucinations secondary to etoh withdrawal now improved difficulty sleeping seen by psych started on remeron low dose electrolyte abnormalites : repleted phosphorous ambulating without support Condition: Stable - Instructions Referrals: Shan Nino MD [Primary Care Provider] - Disposition: HOME - Home Medications Comprehensive Discharge Medication List: Ambulatory Orders Acetaminophen [Tylenol .Regular Strength -] 650 mg PO Q6H PRN tablet 04/23/17 Amlodipine Besylate 10 mg PO DAILY #0 tab 04/23/17 Metoprolol Tartrate 25 mg PO BID #0 tab 04/23/17 Multivitamins [Multivit ([facility] Formulary)] 1 tab PO DAILY #30 tab 04/23/17 Pantoprazole Sodium [Protonix -] 40 mg PO DAILY #30 tablet.ec 04/23/17 Thiamine HCl [Vitamin B1 -] 100 mg PO BID #60 tablet 04/23/17 Valsartan [Diovan] 160 mg PO DAILY #0 tab 04/23/17
--- NOTE | 2017-07-05 14:12 | PN ---
Progress Note, Physician Chief Complaint: Cardiology consult fu Telem Afib HR 90s No palpitations - Current Medication List Current Medications: Active Medications Apixaban (Eliquis -) 5 mg PO BID [facility] Last Admin: 07/05/17 09:10 Dose: 5 mg Diazepam (Valium -) 5 mg PO Q8H PRN PRN Reason: tremors Last Admin: 07/05/17 10:40 Dose: 5 mg Digoxin (Lanoxin -) 0.125 mg PO DAILY [facility] Last Admin: 07/05/17 09:10 Dose: 0.125 mg Metoprolol Tartrate (Lopressor -) 100 mg PO BID [facility] Last Admin: 07/05/17 09:10 Dose: 100 mg Mirtazapine (Remeron -) 7.5 mg PO [facility] Last Admin: 07/04/17 21:19 Dose: 7.5 mg Ondansetron HCl (Zofran -) 4 mg PO Q6H PRN PRN Reason: NAUSEA AND/OR VOMITING Last Admin: 07/04/17 04:52 Dose: 4 mg Potassium Chloride (K-Dur -) 20 meq PO BID [facility] Last Admin: 07/05/17 09:10 Dose: 20 meq Potassium Phos/Sodium Phos (Phos-Nak Packet -) 1 packet PO TID [facility] Last Admin: 07/05/17 13:42 Dose: 1 packet Multivit/Folic Acid/Iron ( Vitamins (Sjr) -) 1 tab PO DAILY [facility] Last Admin: 07/05/17 09:13 Dose: 1 tab Thiamine HCl (Vitamin B1 -) 100 mg PO [facility] Last Admin: 07/04/17 21:19 Dose: 100 mg - Objective Vital Signs: Vital Signs Temperature 98.3 F 07/05/17 07:07 Pulse Rate 100 H 07/05/17 09:10 Respiratory Rate 20 07/05/17 07:08 Blood Pressure 100/65 07/05/17 07:07 O2 Sat by Pulse Oximetry (%) 97 07/05/17 07:08 Constitutional: Yes: No Distress, Anxious Eyes: Yes: Conjunctiva Clear, EOM Intact HENT: Yes: Atraumatic, Normocephalic Neck: Yes: Supple, Trachea Midline Cardiovascular: Yes: Pulse Irregular, S1, S2 Respiratory: Yes: Regular, CTA Bilaterally Gastrointestinal: Yes: Normal Bowel Sounds, Soft Edema: No Labs: CBC, BMP 07/05/17 06:15 07/04/17 06:55 INR, PTT INR 1.06 (0.82-1.09) 06/30/17 18:25 Problem List - Problems (1) Atrial fibrillation Code(s): I48.91 - UNSPECIFIED ATRIAL FIBRILLATION (2) Renal insufficiency Code(s): N28.9 - DISORDER OF KIDNEY AND URETER, UNSPECIFIED Assessment/Plan 66-year-old woman, alcoholic, with a history of diabetes, hypertension, GI bleed , hyperlipidemia, ulcerative colitis, paroxysmal atrial fibrillation, not on anticoagulation because of prior GI bleed (?), admitted with alcohol intoxication. Found to have persistent atrial fibrillation, severe dehydration, acute renal failure. She was seen by GI and neurology for alcoholic pancreatitis , and hallucination. She remains in persistent atrial fibrillation with improved VR. Echo 06/29/2017: Normal LV size and systolic function. Normal RV. Moderate calcification of AV of non-coronary artery cusp. Afib reasonably rate controlled with occasional HR over 100 Continue current therapy. Can DC telemetry Will see as needed.
--- NOTE | 2017-07-05 15:39 | PN ---
Progress Note (short form) - Note Progress Note: awaiting for official read on xray if negative can go home Problem List - Problems (1) Hypotension Code(s): I95.9 - HYPOTENSION, UNSPECIFIED Qualifiers: Hypotension type: unspecified hypotension type Qualified Code(s): I95.9 - Hypotension, unspecified (2) Renal insufficiency Code(s): N28.9 - DISORDER OF KIDNEY AND URETER, UNSPECIFIED (3) Alcohol dependence with uncomplicated withdrawal Code(s): F10.230 - ALCOHOL DEPENDENCE WITH WITHDRAWAL, UNCOMPLICATED (4) Fall Code(s): W19.XXXA - UNSPECIFIED FALL, INITIAL ENCOUNTER
--- NOTE | 2017-07-06 21:40 | CONSULT ---
Consult Detox S - Alcohol/Substance Use Hx Alcohol Use: Yes (pint of vodka daily) - Past Medical History Cardio/Vascular: Yes: AFIB, HTN, Hyperlipdemia Gastrointestinal: Yes: Pancreatitis (current alcoholic pancreatitis) Hepatobiliary: Yes: Other (current alcoholic hepatitis and likely cirrhosis) Psych: Yes: Addictions (alcohol abuse ) Endocrine: Yes: Diabetes Mellitus - Past Surgical History Past Surgical History: Yes: None CIWA Score - CIWA Score Nausea/Vomitin-Mild Nausea/No Vomiting Muscle Tremors: 1-None Visible, but [place] Anxiety: 1-Mildly Anxious Agitation: 1-Slight > Activity Paroxysmal Sweats: 1-Minimal Palms Moist Orientation: 1-Uncertain about Date Tacttile Disturbances: 1-Very Mild Itch/Numbness Auditory Disturbances: 0-None Visual Disturbances: 0-None Headache: 2-Mild CIWA-Ar Total Score: 9 Assessment Plan - Diagnosis (1) Addisons disease Status: Acute (2) Alcohol dependence with uncomplicated withdrawal Status: Acute (3) Alcoholic hepatitis Status: Acute Qualifiers: Ascites presence: without ascites Qualified Code(s): K70.10 - Alcoholic hepatitis without ascites (4) Depression Status: Acute (5) Fall Status: Acute (6) IBS (irritable bowel syndrome) Status: Acute (7) Volume depletion Status: Acute
== END 2017-07-05 15:14 | disposition home or self-care (01) | DRG 683 ==
LOC: JER 03:02 → JERBED 09:38 → J4W 17:00 → JERBED 20:19 → J4W 20:23 → JERBED 20:34 → J4W 20:36 → OBSVTOIN 06-29 17:12
PROVIDERS: ADMIT Student in an Organized Health Care Education/Training Program; ATTEND Student in an Organized Health Care Education/Training Program
PROC: HZ2ZZZZ Detoxification Services for Substance Abuse Treatment (ICD-10-PCS; principal; 2017-06-29)
DX: N17.9 Acute kidney failure, unspecified (principal); F10.230 Alcohol dependence with withdrawal, uncomplicated; K86.0 Alcohol-induced chronic pancreatitis; I48.1 Persistent atrial fibrillation; E27.1 Primary adrenocortical insufficiency; I10 Essential (primary) hypertension; F10.220 Alcohol dependence with intoxication, uncomplicated; E83.51 Hypocalcemia; E78.5 Hyperlipidemia, unspecified; Y90.8 Blood alcohol level of 240 mg/100 ml or more; I95.9 Hypotension, unspecified; E86.9 Volume depletion, unspecified; I48.0 Paroxysmal atrial fibrillation; E66.9 Obesity, unspecified; Z68.27 Body mass index [BMI] 27.0-27.9, adult; R63.0 Anorexia; E86.0 Dehydration; R74.0 Nonspecific elevation of levels of transaminase and lactic acid dehydrogenase [LDH]; R19.7 Diarrhea, unspecified; S29.8XXA Other specified injuries of thorax, initial encounter; S79.812A Other specified injuries of left hip, initial encounter; S79.811A Other specified injuries of right hip, initial encounter; W18.39XA Other fall on same level, initial encounter; Y93.89 Activity, other specified; Y92.89 Other specified places as the place of occurrence of the external cause; Y99.8 Other external cause status; D64.9 Anemia, unspecified; D69.6 Thrombocytopenia, unspecified; E11.9 Type 2 diabetes mellitus without complications; K70.10 Alcoholic hepatitis without ascites; K76.0 Fatty (change of) liver, not elsewhere classified; K58.9 Irritable bowel syndrome, unspecified; F32.9 Major depressive disorder, single episode, unspecified; Z79.84 Long term (current) use of oral hypoglycemic drugs
CPT/HCPCS: 36415; 70450-TC; 71045-TC-FY; 71275-TC; 72100-TC-FY; 73523-TC-FY; 74177-TC; 76775-TC; 76856-TC; 80048; 80053; 80061; 80076; 80307; 81003; 81015; 82105; 82150; 82436; 82550; 82553; 82570; 82728; 83540; 83550; 83690; 83721; 83735; 84100; 84133; 84300; 84484; 85025; 85027; 85610; 85730; 86038; 86803; 93005; 93010; 93306-TC; 93970-TC; 97116-GP; 97161-GP; 97164-GP; 99284-25; G0378; J1644

== ENCOUNTER 2017-11-14 05:04 | Inpatient (IN) | payer OTHER ==
[2017-11-14] MEDS ORDERED: chlordiazePOXIDE HCL 25 MG CAPSULE PO ONE (05:47)
[2017-11-14] MEDS ORDERED: FOLIC ACID INJECTION - 1 MG, THIAMINE HCL 100 MG, MULTIVIT INJECTION ADULT 10 ML in SOD... IVPB ONE (05:47)
--- NOTE | 2017-11-14 05:51 | PDOC ---
History of Present Illness - General Chief Complaint: Alcohol intoxication Stated Complaint: INTOX Time Seen by Provider: 11/14/17 05:37 History Source: Patient - History of Present Illness Initial Comments: 11/14/17 05:51 67 year old female with pmhx of EtOH abuse, hypertension, hyperlipidemia, atrial fibrillation on Digoxin and Metoprolol, c/o tremors, nausea and feeling unwell. denies chest pain, abdominal pain, seizures Past History - Past Medical History Allergies/Adverse Reactions: Allergies Allergy/AdvReac Type Severity Reaction Status Date / Time No Known Allergies Allergy Verified 11/14/17 05:46 Home Medications: Ambulatory Orders Digoxin [Lanoxin -] 0.125 mg PO DAILY #30 tablet MDD 1 07/05/17 Metoprolol Tartrate [Lopressor -] 100 mg PO BID #30 tablet MDD 2 07/05/17 Anemia: No Asthma: No Cancer: No Cardiac Disorders: Yes (AFIB) CVA: No COPD: No CHF: No DVT: No Dementia: No Diabetes: Yes Dialysis: No GI Disorders: Yes (IBS, ulcerative colitis) Disorders: No HTN: Yes Hypercholesterolemia: Yes Kidney Stones: No Liver Disease: No Psychiatric Problems: No Seizures: No Thyroid Disease: No Lung CA: No - Surgical History Abdominal Surgery: No Appendectomy: No Cardiac Surgery: No Cholecystectomy: No Lung Surgery: No Neurologic Surgery: No Orthopedic Surgery: No - Immunization History Immunization Up to Date: Yes - Suicide/Smoking/Psychosocial Hx Smoking Status: Yes Smoking History: Current some day smoker Have you smoked in the past 12 months: No Number of Cigarettes Smoked Daily: 0 If you are a former smoker, when did you quit?: 40 YEARS Information on smoking cessation initiated: No Hx Alcohol Use: No Drug/Substance Use Hx: No Substance Use Type: Alcohol Hx Substance Use Treatment: No *Physical Exam - Vital Signs Last Vital Signs Temp Pulse Resp BP Pulse Ox 99.4 F 110 H 20 153/98 99 11/14/17 05:20 11/14/17 05:20 11/14/17 05:20 11/14/17 05:20 11/14/17 05:20 - Physical Exam General Appearance: Yes: Appropriately Dressed Respiratory/Chest: positive: Lungs Clear, Normal Breath Sounds Cardiovascular: positive: Tachycardia Gastrointestinal/Abdominal: positive: Normal Bowel Sounds, Soft Musculoskeletal: positive: Normal Inspection Extremity: positive: Normal Capillary Refill, Normal Inspection, Normal Range of Motion, Other (tremors) Integumentary: positive: Normal Color, Dry, Warm Neurologic: positive: Fully Oriented, Alert, Normal Mood/Affect Heart Score/ECG Review - ECG Intrepretation Rhythm: Regular Rhythm Comment:: 11/14/17 07:08 A-fib with rapid ventricular response: 108 ED Treatment Course - LABORATORY CBC & Chemistry Diagram: 11/14/17 06:20 11/14/17 06:20 - RADIOLOGY Radiology Studies Ordered: Category Date Time Status CHEST PA & LAT [RAD] Stat Radiology 11/14/17 05:45 Ordered Medical Decision Making - Medical Decision Making 11/14/17 07:15 labs pending . patient signed out to Blanca FINLEY *DC/Admit/Observation/Transfer Diagnosis at time of Disposition: Alcohol withdrawal Qualifiers: Complication of substance-induced condition: uncomplicated Qualified Code(s): F10.230 - Alcohol dependence with withdrawal, uncomplicated - Discharge Dispostion Condition at time of disposition: Fair - Referrals Referrals: Shan Nino MD [Primary Care Provider] - - Patient Instructions - Post Discharge Activity
[2017-11-14] MEDS ORDERED: ONDANSETRON 4 MG/2 ML VIAL IVPUSH ONE (06:04)
[2017-11-14] MEDS ORDERED: chlordiazePOXIDE HCL 25 MG CAPSULE ONE (06:11)
[2017-11-14] MEDS ORDERED: LORazepam 2 MG/ML SDV VIAL ONE (06:12)
[2017-11-14] MEDS ORDERED: ONDANSETRON 4 MG/2 ML VIAL ONE (06:12)
[2017-11-14 07:03] LABS: BASO % 0.3 % (0-2.0); EOS % 0.6 % (0-4.5); HEMATOCRIT 35.4 % (32.4-45.2); HEMOGLOBIN 11.9 GM/dL (10.7-15.3); LYMPH % 8.9 % (8-40); MCH 28.9 pg (25.7-33.7); MCHC 33.5 g/dl (32.0-36.0); MEAN CELL VOLUME 86.3 fl (80-96); MEAN PLT VOLUME 9.6 fl (7.5-11.1); MONO % 8.5 % (3.8-10.2); NEUT % 81.7 % (42.8-82.8); PLATELET COUNT 102 K/MM3 (134-434); RDW 17.3 % (11.6-15.6); WHITE BLOOD COUNT 5.1 K/mm3 (4.0-10.0)
[2017-11-14 07:21] LABS: INR 1.1 (0.82-1.09); PROTHROMBIN TIME (PATIENT) 12.4 SEC (9.7-13.0)
[2017-11-14] MEDS ORDERED: SODIUM CHLORIDE 1,000 ML IV STA (07:51)
--- NOTE | 2017-11-14 07:58 | PDOC ---
*Physical Exam - Vital Signs Last Vital Signs Temp Pulse Resp BP Pulse Ox 99.4 F 110 H 20 153/98 99 11/14/17 05:20 11/14/17 05:20 11/14/17 05:20 11/14/17 05:20 11/14/17 05:20 - Physical Exam General Appearance: Yes: Appropriately Dressed. No: Apparent Distress HEENT: positive: Normal Voice Neck: positive: Supple Respiratory/Chest: positive: Lungs Clear, Normal Breath Sounds. negative: Respiratory Distress Cardiovascular: positive: Regular Rate, S1, S2 Gastrointestinal/Abdominal: positive: Soft. negative: Tender Integumentary: positive: Dry, Warm Neurologic: positive: Fully Oriented, Alert, Normal Mood/Affect, Other (no tremors noted) ED Treatment Course - LABORATORY CBC & Chemistry Diagram: 11/14/17 06:20 11/14/17 06:20 - ADDITIONAL ORDERS Additional order review: Laboratory Results 11/14/17 11/14/17 06:20 06:20 Sodium Cancelled Potassium Cancelled Chloride Cancelled Carbon Dioxide Cancelled Anion Gap Cancelled BUN Cancelled Creatinine Cancelled Creat Clearance w eGFR Cancelled Random Glucose Cancelled Calcium Cancelled Magnesium Cancelled Total Bilirubin Cancelled AST Cancelled ALT Cancelled Alkaline Phosphatase Cancelled Creatine Kinase Cancelled Troponin I Cancelled B-Natriuretic Peptide Cancelled Total Protein Cancelled Albumin Cancelled Alcohol, Quantitative < 5.0 11/14/17 06:20 RBC 4.10 MCV 86.3 MCHC 33.5 RDW 17.3 H MPV 9.6 Neutrophils % 81.7 Lymphocytes % 8.9 Monocytes % 8.5 Eosinophils % 0.6 Basophils % 0.3 - Medications Given in the ED: ED Medications Discontinued Medications Generic Name Dose Route Start Last Admin Trade Name Demetriusq PRN Reason Stop Dose Admin Chlordiazepoxide HCl 50 mg 11/14/17 05:47 11/14/17 06:40 Librium - PO 11/14/17 05:48 50 mg ONCE ONE Administration Lorazepam 1 mg 11/14/17 06:06 11/14/17 06:59 Ativan Injection - IVPUSH 11/14/17 06:07 1 mg ONCE ONE Administration Ondansetron HCl 4 mg 11/14/17 06:04 11/14/17 06:58 Zofran Injection IVPUSH 11/14/17 06:05 4 mg ONCE ONE Administration Medical Decision Making - Medical Decision Making 11/14/17 07:56 Pt signed out to me at 7 AM 61 yo female with history of HTN, HLD, Afib, not currently on AC, alcohol abuse , was seen in ED yesterday for epigastric pain and discharged. At that time was also treated for alcohol withdrawal, now returns with malaise and tremors. States since she was discharged yesterday, has not resumed alcohol. Patient tachycardic to 110 at triage. S/p ativan and librium. States she feels much better. Rpt HR 81 .CBC unremarkable. Initial chem hemolyze today, second test pending. Patient offered detox at [facility] [place], which she refuses. Will admit for alcohol withdrawal at this time 11/14/17 09:[address] Blue and patient admitted *DC/Admit/Observation/Transfer Diagnosis at time of Disposition: Alcohol withdrawal Qualifiers: Complication of substance-induced condition: uncomplicated Qualified Code(s): F10.230 - Alcohol dependence with withdrawal, uncomplicated - Discharge Dispostion Condition at time of disposition: Fair Decision to Admit order: Yes - Referrals Referrals: Shan Nino MD [Primary Care Provider] - - Patient Instructions - Post Discharge Activity
--- NOTE | 2017-11-14 09:42 | EKG ---
Test Reason : Blood Pressure : / mmHG Vent. Rate : 108 BPM Atrial Rate : 079 BPM P-R Int : 000 ms QRS Dur : 092 ms QT Int : 352 ms P-R-T Axes : 000 098 261 degrees QTc Int : 471 ms ATRIAL FIBRILLATION WITH RAPID VENTRICULAR RESPONSE RIGHTWARD AXIS ABNORMAL ECG WHEN COMPARED WITH ECG OF 13-NOV-2017 14:34, QT HAS LENGTHENED Confirmed by RENEA NUÑEZ, LUTHER ([id number]) on 11/14/2017 9:42:07 AM Referred By: Confirmed By:LUTHER MEIER MD
[2017-11-14] MEDS ORDERED: chlordiazePOXIDE HCL 25 MG CAPSULE PO PRN (10:55)
[2017-11-14 10:56] LABS: ALBUMIN 3.4 g/dl (3.4-5.0); ALK PHOS 88 U/L (45-117); ANION GAP 17 (8-16); BILIRUBIN,TOTAL 1.4 mg/dL (0.2-1.0); BLOOD UREA NITROGEN 18 mg/dL (7-18); CALCIUM 7.9 mg/dL (8.5-10.1); CHLORIDE 101 mmol/L (98-107); CO2 21 mmol/L (21-32); CREATININE 1.2 mg/dL (0.55-1.02); GLUCOSE,RANDOM 124 mg/dL (74-106); POTASSIUM 3.4 mmol/L (3.5-5.1); SGOT/AST 62 U/L (15-37); SGPT/ALT 48 U/L (12-78); SODIUM 139 mmol/L (136-145)
--- NOTE | 2017-11-14 10:57 | HP ---
Admitting History and Physical - Admission History of Present Illness: 61 yo female with history of HTN, HLD, Afib, not currently on AC ?, alcohol abuse, was seen in ED yesterday for epigastric pain and discharged. At that time was also treated for alcohol withdrawal, now returns with malaise and tremors. States since she was discharged yesterday, has not resumed alcohol. Patient tachycardic to 110 at triage. S/p ativan and librium. States she feels much better. Rpt HR 81 .CBC unremarkable. Initial chem hemolyzed today, second test pending. Patient offered detox at [facility], which she refuses. Will admit for alcohol withdrawal at this time - Past Medical History Cardiovascular: Yes: AFIB, HTN, Hyperlipdemia Gastrointestinal: Yes: Pancreatitis (current alcoholic pancreatitis) Hepatobiliary: Yes: Other (current alcoholic hepatitis and likely cirrhosis) Heme/Onc: Yes: Thrombocytopenia Psych: Yes: Addictions (alcohol abuse ) Endocrine: Yes: Diabetes Mellitus - Past Surgical History Past Surgical History: Yes: None - Smoking History Smoking history: Current some day smoker Have you smoked in the past 12 months: No Aproximately how many cigarettes per day: 0 If you are a former smoker, when did you quit?: 40 YEARS - Alcohol/Substance Use Hx Alcohol Use: No - Social History ADL: Independent 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 History of Recent Travel: No Home Medications - Allergies Allergies/Adverse Reactions: Allergies Allergy/AdvReac Type Severity Reaction Status Date / Time No Known Allergies Allergy Verified 11/14/17 05:46 - Home Medications Home Medications: Ambulatory Orders Digoxin [Lanoxin -] 0.125 mg PO DAILY #30 tablet MDD 1 07/05/17 Metoprolol Tartrate [Lopressor -] 100 mg PO BID #30 tablet MDD 2 07/05/17 Family Disease History - Family Disease History Family Disease History: CA: Mother (brain cancer, alcoholic), Other: Father ( alcoholic), Mother, Brother (alcoholic) Physical Examination Vital Signs: Vital Signs Temperature 99.4 F 11/14/17 05:20 Pulse Rate 81 11/14/17 09:43 Respiratory Rate 18 11/14/17 09:43 Blood Pressure 104/73 11/14/17 09:43 O2 Sat by Pulse Oximetry (%) 98 11/14/17 09:43 Cardiovascular: Yes: S1, S2 Respiratory: Yes: Regular, CTA Bilaterally Gastrointestinal: Yes: Normal Bowel Sounds, Soft. No: Tenderness Labs: CBC, BMP 11/14/17 06:20 Problem List - Problems (1) Alcohol withdrawal Assessment/Plan: -Detox protocol ivf mvi detox consult Code(s): F10.239 - ALCOHOL DEPENDENCE WITH WITHDRAWAL, UNSPECIFIED Qualifiers: Complication of substance-induced condition: uncomplicated Qualified Code(s ): F10.230 - Alcohol dependence with withdrawal, uncomplicated (2) Atrial fibrillation Assessment/Plan: -continue with meds -off ac? --resume -cardio -follow labs Code(s): I48.91 - UNSPECIFIED ATRIAL FIBRILLATION (3) Thrombocytopenia Assessment/Plan: -monitor Code(s): D69.6 - THROMBOCYTOPENIA, UNSPECIFIED (4) Abdominal pain Assessment/Plan: -resolved -check labs -gi consult Code(s): R10.9 - UNSPECIFIED ABDOMINAL PAIN Qualifiers: Abdominal location: generalized Qualified Code(s): R10.84 - Generalized abdominal pain
--- NOTE | 2017-11-14 12:01 | PN ---
S Progress Note (SOAP) Subjective: Addiction med consult service was asked to see for referral to [facility] for rehab. Pt was admitted for alcohol detox. Pt states she had been drinking excessively recently and wanted to stop so came to ER for detox. Pt states she started drinking several decades back and had successfully stopped several times but eventually relapsed. Pt states she would like to stop drinking. States she will go to AA meetings and feels like she is highly motivated to stop using alcohol. Objective: 11/14/17 18:50 Vital Signs - 24 hr 11/14/17 11/14/17 11/14/17 05:20 09:43 11:16 Temperature 99.4 F Pulse Rate 110 H Pulse Rate [ 81 82 Right] Respiratory 20 18 16 Rate Blood Pressure 153/98 Blood Pressure 104/73 120/88 [Right Arm] O2 Sat by Pulse 99 98 99 Oximetry (%) 11/14/17 11/14/17 11/14/17 12:00 12:07 12:26 Temperature 98.5 F Pulse Rate 79 79 Pulse Rate [ Right] Respiratory 20 Rate Blood Pressure 132/96 Blood Pressure [Right Arm] O2 Sat by Pulse 96 Oximetry (%) 11/14/17 11/14/17 12:39 17:59 Temperature 98.5 F 98.2 F Pulse Rate 79 83 Pulse Rate [ Right] Respiratory 20 18 Rate Blood Pressure 132/96 107/74 Blood Pressure [Right Arm] O2 Sat by Pulse Oximetry (%) VS are stable and pt is no distress. No evidence of alcohol withdrawal Sx- no tremors, Assessment: 11/14/17 18:51 67 yo with Alcohol use disorder: pt is motivated to stop using alcohol. Pt has tried and has successfully stopped for several years in the past. Pt is not interestd in pt rehab at [facility]. Plan: Pt to continue on alcohol detox protocol. Pt does not want to go to [facility] for detox or to continue with rehab. Please call us back if we can be of assistance to you. sami Chandler MD
[2017-11-14] MEDS: chlordiazePOXIDE HCL 25 MG CAPSULE PO SCH ×3 (12:24→22:59)
[2017-11-14] MEDS: DIGOXIN 0.125 MG TABLET (FP) PO SCH (12:26)
[2017-11-14] MEDS ORDERED: PT OWN MED DRAWER 7, Y5N ONE (12:34)
[2017-11-14] MEDS: PANTOPRAZOLE 40 MG TABLET (FP) PO SCH (12:36)
[2017-11-14 12:58] VITALS: BMI 25.9
[2017-11-14 13:17] LABS: URINE APPEARANCE SLCLOUDY; URINE BILIRUBIN NEGATIVE (<2.0 mg/dL); URINE COLOR YELLOW; URINE GLUCOSE (UA) NEGATIVE (NEGATIVE); URINE KETONE 1+ (NEGATIVE); URINE LEUK ESTERASE NEGATIVE (NEGATIVE); URINE NITRITE NEGATIVE (NEGATIVE)
[2017-11-14 13:26] LABS: URINE PROTEIN 2+ (NEGATIVE)
--- NOTE | 2017-11-14 13:26 | PN ---
Mental Health Exam - Mental Status Exam Alert and Oriented to: Time, Place, Person Cognitive Function: Grossly Intact Patient Appearance: Unkempt Mood: Hopeful Affect: Mood Congruent Patient Behavior: Dependent Speech Pattern: Clear Voice Loudness: Mildly Soft/Quiet Thought Process: Intact Thought Disorder: Not Present Hallucinations: None Suicidal Ideation: None Homicidal Ideation: None Insight/Judgement: Fair Sleep: Fair Appetite: Weight loss Muscle strength/Tone: Mild Hypertonicity Gait/Station: Deferred
[2017-11-14 13:27] LABS: EPI CELLS MODERATE /HPF (FEW); URINE BACTERIA MODERATE /hpf (NONE SEEN); URINE MUCUS RARE
--- NOTE | 2017-11-14 13:29 | PN ---
Progress Note (short form) - Note Progress Note: 67 yo female admitted for detox from Er, on Librium taper currently. Co-operative on interview. endorsed drinking a bottle of vodka over past few days. Mild tremor, diaphoretic, denies SI, AH or VH. Problem List - Problems (1) Alcohol withdrawal Code(s): F10.239 - ALCOHOL DEPENDENCE WITH WITHDRAWAL, UNSPECIFIED Qualifiers: Complication of substance-induced condition: uncomplicated Qualified Code(s ): F10.230 - Alcohol dependence with withdrawal, uncomplicated
[2017-11-14] MEDS: THIAMINE HCL 200 MG/2 ML VIAL IM SCH (13:30)
--- NOTE | 2017-11-14 14:59 | CON.GI ---
Consult Consult Specialty:: Gastroenterology Referred by:: Dr. Blue Reason for Consultation:: Abdominal Pain - History of Present Illness Chief Complaint: Nausea, loss of appetite History of Present Illness: Patient is a 67 year old female who presented to the ED complaining of worsening abdominal pain associated with weakness and gait instability. Patient reports for the past two weeks she has been drinking a pint of vodka daily due to feeling depressed and no support system since she retired July of this year. Patient states her abdominal pain is dull/throbbing, nonradiating , and intermitten with no alleviating or exacerbating symptoms associated with nausea. Patient does admit to having very little PO intake due to excessive alcohol intake. Patient reports she initially went to the ED yesterday and was discharged after getting fluids, ativan, and librium. Patient states she felt better but then around 02:00 this morning she felt very weak and decided to return to the ED. She reports having her last drink two days ago. Patient reports having an endoscopy done last year and was told she has IBS. She is unsure if she has IBD but reports she is not taking any medications for it. She does report having intermittent diarrhea and constipation for several years and is being followed by a GI doctor in [place] part of a group called [facility]. Patient denies joint pain, jaundice, fever, chills, vomiting, pruritis, diet changes, weight loss, hepatitis, transfusions, autoimmune disorder, hematemesis , hematochezia, melena, chest pain, palpitations, shortness of breath. In the ED patient was found to have tremors, diaphoresis, and hypokalemia. - History Source History Provided By: Patient Limitations to Obtaining History: No Limitations - Past Medical History Cardio/Vascular: Yes: AFIB, HTN, Hyperlipdemia Gastrointestinal: Yes: Irritable Bowel Disease, Pancreatitis (current alcoholic pancreatitis) Hepatobiliary: Yes: Other (current alcoholic hepatitis and likely cirrhosis) ...: No Psych: Yes: Addictions (alcohol abuse ) Endocrine: Yes: Diabetes Mellitus - Past Surgical History Past Surgical History: Yes: None - Alcohol/Substance Use Hx Alcohol Use: Yes - Smoking History Smoking history: Former smoker Have you smoked in the past 12 months: No Aproximately how many cigarettes per day: 0 If you are a former smoker, when did you quit?: 40 YEARS - Social History Usual Living Arrangement: Alone ADL: Independent 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 History of Recent Travel: No Home Medications - Allergies Allergies/Adverse Reactions: Allergies Allergy/AdvReac Type Severity Reaction Status Date / Time No Known Allergies Allergy Verified 11/14/17 05:46 - Home Medications Home Medications: Ambulatory Orders Digoxin [Lanoxin -] 0.125 mg PO DAILY #30 tablet MDD 1 07/05/17 Metoprolol Tartrate [Lopressor -] 100 mg PO BID #30 tablet MDD 2 07/05/17 Family Disease History - Family Disease History Family Disease History: CA: Mother (brain cancer, alcoholic), Other: Father ( alcoholic), Mother, Brother (alcoholic) Review of Systems - Review of Systems Constitutional: reports: Diaphoresis, Loss of Appetite, Weakness. denies: Fever , Lethargy, Unintentional Wgt. Loss HENT: reports: No Symptoms. denies: Difficult Swallowing, Nasal Congestion Cardiovascular: reports: No Symptoms. denies: Chest Pain, Edema, Palpitations, Shortness of Breath Respiratory: reports: No Symptoms. denies: Cough, Hemoptysis, SOB, SOB on Exertion, Wheezing Gastrointestinal: reports: Abdominal Pain, Constipation, Diarrhea, Nausea. denies: Dysphagia, Indigestion, Melena, Rectal Bleeding, Vomiting, Vomiting Blood Genitourinary: reports: No Symptoms. denies: Burning, Discharge, Dysuria, Flank Pain, Frequency, Hematuria Musculoskeletal: denies: Joint Pain, Joint Swelling Neurological: denies: Confusion, Dizziness Endocrine: denies: Flushing, Unexplained Weight Loss Psychiatric: reports: Altered Sleep Pattern, Depression. denies: Hallucinations , Panic, Suicidal Physical Exam-GI Vital Signs: Vital Signs Temperature 98.5 F 11/14/17 12:39 Pulse Rate 79 11/14/17 12:39 Respiratory Rate 20 11/14/17 12:39 Blood Pressure 132/96 11/14/17 12:39 O2 Sat by Pulse Oximetry (%) 99 11/14/17 11:16 Constitutional: Yes: No Distress, Calm. No: Anxious Eyes: Yes: WNL, Conjunctiva Clear, PERRL. No: Sclera Icterus HENT: Yes: WNL, Atraumatic, Normocephalic. No: Pharyngeal Erythema, Tonsillar Exudate Neck: Yes: WNL, Supple, Trachea Midline. No: Tenderness Cardiovascular: Yes: WNL, Pulse Irregular, S1, S2. No: Tachycardia Respiratory: Yes: WNL, Regular, CTA Bilaterally. No: Accessory Muscle Use, Rales, Rhonchi, Wheezes Gastrointestinal Inspection: Yes: WNL. No: Ascites, Distention, Hernia, Scars ...Auscultate: Yes: Normoactive Bowel Sounds ...Palpate: Yes: Hepatomegaly, Soft. No: Firm/Rigid, Tenderness ...Percussion: No: Fluid Wave Extremities: Yes: WNL. No: Calf Tenderness, Cold, Cool Edema: No Neurological: Yes: WNL, Alert, Oriented. No: Aphasia, Dysarthria, Facial Droop Psychiatric: Yes: Alert, Oriented, Other (Tearful) Labs: CBC, BMP 11/14/17 06:20 11/14/17 09:35 INR, PTT INR 1.10 (0.82-1.09) 11/14/17 06:20 Problem List - Problems (1) Alcohol withdrawal Code(s): F10.239 - ALCOHOL DEPENDENCE WITH WITHDRAWAL, UNSPECIFIED Qualifiers: Complication of substance-induced condition: uncomplicated Qualified Code(s ): F10.230 - Alcohol dependence with withdrawal, uncomplicated (2) Thrombocytopenia Code(s): D69.6 - THROMBOCYTOPENIA, UNSPECIFIED (3) Abdominal pain Code(s): R10.9 - UNSPECIFIED ABDOMINAL PAIN Qualifiers: Abdominal location: generalized Qualified Code(s): R10.84 - Generalized abdominal pain (4) Alcoholic fatty liver Code(s): K70.0 - ALCOHOLIC FATTY LIVER (5) Cholestasis Code(s): K83.1 - OBSTRUCTION OF BILE DUCT Assessment/Plan Patient is a 67 year old female with a long history of alcohol abuse who presented today with uncomplicated alcohol withdrawal. Patient reports having right upper and lower abdominal pain but with no tenderness upon palpation. Patient reports loss of appetite and nausea due to excessive alcohol intake. Patient currently denies any abdominal pain and is tolerating a liquid diet. Patient is being followed by a GI doctor in [place]. Lipase levels pending. Patient has Mild cholestasis due to elevated Total bili and a history of elevated direct bilirubin but no suspicion of bile duct obstruction. Will check direct bilirubin level. No GI intervention at this time as this patient has no signs of acute liver failure or GI bleeding. Explained in detail the risks if she continues to drink, which includes liver cirrhosis, ascites, kidney damage, and ultimately . May advance diet as tolerated. Continue to treat alcohol withdrawal symptoms, as per primary team.
[2017-11-14] MEDS ORDERED: ONDANSETRON 4 MG/2 ML VIAL IVPUSH PRN (15:31)
[2017-11-14] MEDS: D5-1/2NS+20 MEQ KCL - 20 MEQ/1,000 ML INFUS.BAG IV SCH ×2 (15:35→19:50)
[2017-11-14] MEDS ORDERED: clonazePAM 0.5 MG TABLET PO ONE (15:45)
--- NOTE | 2017-11-14 16:19 | CON.CARD ---
Consult Consult Specialty:: Cardiology Referred by:: Dr. Blue Reason for Consultation:: tachycardia, afib - History of Present Illness Chief Complaint: tremors, nausea History of Present Illness: 67 year old woman alcoholic, DMII, HTN, HLD, h/o GI bleed, UC, Pafib, previously on Xarelto but taken off by her glaze carrier presume due to GI bleed , admitted for ETOH detox, withdrawal, tremors, nausea, dehydration. AFib with RVR 108bpm on admission. Echo 06/29/2017: Normal LV size and systolic function. Normal RV. Moderate calcification of AV of non-coronary artery cusp. - History Source History Provided By: Patient, Medical Record Limitations to Obtaining History: No Limitations - Past Medical History Cardio/Vascular: Yes: AFIB, HTN, Hyperlipdemia Gastrointestinal: Yes: Irritable Bowel Disease, Pancreatitis (current alcoholic pancreatitis) Hepatobiliary: Yes: Other (current alcoholic hepatitis and likely cirrhosis) ...: No Psych: Yes: Addictions (alcohol abuse ) Endocrine: Yes: Diabetes Mellitus - Past Surgical History Past Surgical History: Yes: None - Alcohol/Substance Use Hx Alcohol Use: Yes - Smoking History Smoking history: Former smoker Have you smoked in the past 12 months: No Aproximately how many cigarettes per day: 0 If you are a former smoker, when did you quit?: 40 YEARS - Social History Usual Living Arrangement: Alone ADL: Independent 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 History of Recent Travel: No Home Medications - Allergies Allergies/Adverse Reactions: Allergies Allergy/AdvReac Type Severity Reaction Status Date / Time No Known Allergies Allergy Verified 11/14/17 05:46 - Home Medications Home Medications: Ambulatory Orders Digoxin [Lanoxin -] 0.125 mg PO DAILY #30 tablet MDD 1 07/05/17 Metoprolol Tartrate [Lopressor -] 100 mg PO BID #30 tablet MDD 2 07/05/17 Family Disease History - Family Disease History Family Disease History: CA: Mother (brain cancer, alcoholic), Other: Father ( alcoholic), Mother, Brother (alcoholic) Review of Systems - Review of Systems Constitutional: denies: No Symptoms, Chills, Diaphoresis, Fever, Lethargy, Loss of Appetite, Malaise, Night Sweats, Unintentional Wgt. Loss, Weakness, Other Eyes: denies: No Symptoms, Blind Spots, Blurred Vision, Double Vision, Eye Pain , Floaters, Photophobia, Recent Change in Vision, Other HENT: denies: No Symptoms, Difficult Swallowing, Ear Discharge, Ear Pain, Epistaxis, Gingival Bleeding, Hearing Loss, Mouth Swelling, Nasal Congestion, Ocular Prosthesis, Throat Pain, Toothache, Ringing in Ears, Other Neck: denies: No Symptoms, Decreased ROM, Lumps, Pain on Movement, Stiffness, Swollen Glands, Tenderness, Other Cardiovascular: denies: No Symptoms, Chest Pain, Edema, Palpitations, Shortness of Breath, Other Respiratory: denies: No Symptoms, Cough, Exercise Intolerance, Hemoptysis, Orthopnea, PND, Snoring, SOB, SOB on Exertion, Wheezing, Other Gastrointestinal: reports: Abdominal Pain, Nausea. denies: No Symptoms, Bloating, Constipation, Diarrhea, Dysphagia, Indigestion, Melena, Rectal Bleeding, Vomiting, Vomiting Blood, Other Genitourinary: denies: No Symptoms, Burning, Discharge, Dysuria, Flank Pain, Frequency, Hematuria, Incontinence, Lesions, Menses, Pain, Testicular Mass, Testicular Pain, Testicular Swelling, Urgency, Vaginal Bleeding, Other Breasts: denies: No Symptoms Reported, See HPI, Breast Implants, Discharge from Nipple, Lumps, Pain, Skin Changes, Other Musculoskeletal: denies: No Symptoms, Back Pain, Crepitus, Decreased ROM, Extremity Pain, Joint Pain, Joint Swelling, Muscle Pain, Muscle Cramps, Muscle Weakness, Other Integumentary: denies: No Symptoms, Blister, Bruising, Change in Color, Eczema, Erythema, Incision, Lesions, Lump, Pallor, Pruritis, Rash, Wound, Other Neurological: reports: Tremors. denies: No Symptoms, Change in LOC, Change in Speech, Confusion, Dizziness, Headache, Incoordination, Numbness, Parasthesia, Pre-Existing Deficit, Seizure, Syncope, Unsteady Gait, Weakness, Other Endocrine: denies: No Symptoms, Excessive Sweating, Flushing, Increased Hunger, Increased Thirst, Intolerance to Cold, Intolerance to Heat, Unexplained Weight Gain, Unexplained Weight Loss, Other Hematology/Lymphatic: denies: No Symptoms, Easily Bruised, Excessive Bleeding, Swollen Glands, Other Psychiatric: denies: No Symptoms, Altered Sleep Pattern, Anxiety, Depression, Hallucinations, Panic, Paranoia, Suicidal, Other - Risk Factors Known Risk Factors: Yes: Diabetes Mellitus, Hypercholesterolemia, Hypertension Vital Signs: Vital Signs Temperature 98.5 F 11/14/17 12:39 Pulse Rate 79 11/14/17 12:39 Respiratory Rate 20 11/14/17 12:39 Blood Pressure 132/96 11/14/17 12:39 O2 Sat by Pulse Oximetry (%) 96 11/14/17 12:07 Constitutional: Yes: Well Nourished, No Distress, Calm Eyes: Yes: WNL, Conjunctiva Clear, EOM Intact, PERRL HENT: Yes: WNL, Atraumatic, Normocephalic Neck: Yes: WNL, Supple, Trachea Midline Respiratory: Yes: WNL, Regular, CTA Bilaterally. No: Rales, Rhonchi, Wheezes Gastrointestinal: Yes: Normal Bowel Sounds, Tenderness. No: Distention Cardiovascular: Yes: Pulse Irregular. No: Regular Rate and Rhythm, Bradycardia , Tachycardia, Gallop, Rub, Varicosities JVD: No Carotid Bruit: No PMI: Non-Displaced Heart Sounds: Yes: S1, S2. No: Split S2, S3, S4, Clicks, Gallop, Rub, Bruit Murmur: No: Systolic Murmur, Diastolic Murmur Musculoskeletal: Yes: WNL Extremities: Yes: WNL Edema: No Peripheral Pulses WNL: Yes Peripheral Pulses: 2+ Left Doralis Pedis, 2+ Right Dorsalis Pedis Integumentary: Yes: WNL Neurological: Yes: Alert, Oriented Psychiatric: Yes: Alert, Oriented - Other Data Labs, Other Data: CBC, BMP 11/14/17 06:20 11/14/17 09:35 INR, PTT INR 1.10 (0.82-1.09) 11/14/17 06:20 Troponin, BNP 11/14/17 06:20 Troponin I Cancelled B-Natriuretic Peptide Cancelled Troponin, BNP 11/14/17 06:20 Troponin I Cancelled B-Natriuretic Peptide Cancelled ekg-AFib RVR 108bpm, nonspecific St abnl Echo: Report Reviewed Imaging - Results Chest X-ray: Report Reviewed, Image Reviewed EKG: Report Reviewed, Image Reviewed Other: Report Reviewed, Image Reviewed Assessment/Plan 67 year old woman alcoholic, DMII, HTN, HLD, h/o GI bleed, UC, Pafib, previously on Xarelto but taken off by her glaze carrier presume due to GI bleed , admitted for ETOH detox, withdrawal, tremors, nausea, dehydration. AFib with RVR 108bpm on admission. Echo 06/29/2017: Normal LV size and systolic function. Normal RV. Moderate calcification of AV of non-coronary artery cusp. AFib-mild RVR on admission, in setting of etoh withdrawal, dehydration, not taking metoprolol on day of admission. -HR now adequately controlled -cont metoprolol at current dose -cont Digoxin for now, re-evaluate as outpatient if ideal medication for her -not on AC currently, reports being taken of Xarelto as outpatient by her glaze carrier, presume due to h/o GI bleed and alcoholism -she does meet criteria for full AC but given Risk vs benefit, this decision can be deferred to outpatient setting. -cont detox and withdrawal tx, hydration as needed No additional planned inpatient cardiac work up at this time. Please call with any additional questions.
[2017-11-14 21:21] LABS: MAGNESIUM 1.5 mg/dL (1.8-2.4)
[2017-11-14] MEDS: METOPROLOL TARTRATE 50 MG TABLET (FP) PO SCH (21:33)
[2017-11-15] MEDS: chlordiazePOXIDE HCL 25 MG CAPSULE PO SCH ×4 (05:50→22:32)
[2017-11-15 08:56] LABS: ALBUMIN 3.3 g/dl (3.4-5.0); ALK PHOS 83 U/L (45-117); ANION GAP 13 (8-16); BLOOD UREA NITROGEN 12 mg/dL (7-18); CALCIUM 8.2 mg/dL (8.5-10.1); CHLORIDE 103 mmol/L (98-107); CO2 26 mmol/L (21-32); CREATININE 1.2 mg/dL (0.55-1.02); GLUCOSE,RANDOM 157 mg/dL (74-106); POTASSIUM 3.1 mmol/L (3.5-5.1); SGOT/AST 46 U/L (15-37); SGPT/ALT 40 U/L (12-78); SODIUM 142 mmol/L (136-145); TOT PROT 6.5 g/dl (6.4-8.2)
[2017-11-15 09:05] LABS: BASO % 0.4 % (0-2.0); EOS % 4.2 % (0-4.5); HEMATOCRIT 32.8 % (32.4-45.2); LYMPH % 26.2 % (8-40); MCH 28.7 pg (25.7-33.7); MCHC 33.5 g/dl (32.0-36.0); MEAN CELL VOLUME 85.7 fl (80-96); MONO % 10.8 % (3.8-10.2); NEUT % 58.4 % (42.8-82.8); PLATELET COUNT 77 K/MM3 (134-434); RBC 3.83 M/mm3 (3.60-5.2); RDW 16.7 % (11.6-15.6); WHITE BLOOD COUNT 3.6 K/mm3 (4.0-10.0)
[2017-11-15] MEDS ORDERED: PT OWN MED DRAWER 7, Y5N ONE (09:07)
[2017-11-15] MEDS: PANTOPRAZOLE 40 MG TABLET (FP) PO SCH (09:17)
[2017-11-15] MEDS: FOLIC ACID 1 MG TABLET (FP) PO SCH (09:17)
[2017-11-15] MEDS: METOPROLOL TARTRATE 50 MG TABLET (FP) PO SCH ×2 (09:17→22:33)
[2017-11-15] MEDS: DIGOXIN 0.125 MG TABLET (FP) PO SCH (09:17)
[2017-11-15] MEDS: MULTIVITAMINS (DAILY MVI) TABLET (FP) PO SCH (09:17)
[2017-11-15] MEDS: THIAMINE HCL 200 MG/2 ML VIAL IM SCH (09:18)
[2017-11-15] MEDS: D5-1/2NS+20 MEQ KCL - 20 MEQ/1,000 ML INFUS.BAG IV SCH ×2 (09:18→22:31)
[2017-11-15] MEDS ORDERED: MAGNESIUM SULF 50% (8.12 MEQ/2 ML-1 GM VIAL) IVPB ONE (11:03)
--- NOTE | 2017-11-15 11:06 | PN ---
Progress Note, Physician Chief Complaint: patient seen and examined labs reviewed - Current Medication List Current Medications: Active Medications Chlordiazepoxide HCl (Librium -) 50 mg PO [id number] [facility] Stop: 11/15/17 05:01 Last Admin: 11/14/17 22:59 Dose: 50 mg Chlordiazepoxide HCl (Librium -) 25 mg PO [id number] [facility] Stop: 11/16/17 05:01 Chlordiazepoxide HCl (Librium -) 15 mg PO [id number] [facility] Stop: 11/17/17 05:01 Chlordiazepoxide HCl (Librium -) 25 mg PO Q4H PRN PRN Reason: WITHDRAWAL(CONT SUBST) Stop: 11/17/17 10:54 Last Admin: 11/15/17 09:30 Dose: 25 mg Digoxin (Lanoxin -) 0.125 mg PO DAILY [facility] Last Admin: 11/15/17 09:17 Dose: 0.125 mg Folic Acid (Folic Acid -) 1 mg PO DAILY [facility] Last Admin: 11/15/17 09:17 Dose: 1 mg Potassium Chloride/Dextrose/Sod Cl (D5-1/2ns+20 Meq Kcl -) 20 meq in 1,000 mls @ 100 mls/hr IV ASDIR [facility] Last Admin: 11/15/17 09:18 Dose: 100 mls/hr Metoprolol Tartrate (Lopressor -) 100 mg PO BID [facility] Last Admin: 11/15/17 09:17 Dose: 100 mg Multivitamins/Minerals/Vitamin C (Tab-A-Vit -) 1 tab PO DAILY [facility] Last Admin: 11/15/17 09:17 Dose: 1 tab Ondansetron HCl (Zofran Injection) 4 mg IVPUSH Q8H PRN PRN Reason: NAUSEA AND/OR VOMITING Last Admin: 11/14/17 15:39 Dose: 4 mg Pantoprazole Sodium (Protonix -) 40 mg PO DAILY [facility] Last Admin: 11/15/17 09:17 Dose: 40 mg Potassium Chloride (K-Dur -) 40 meq PO ONCE ONE Stop: 11/15/17 11:04 Thiamine HCl (Vitamin B1 Injection -) 200 mg IM DAILY [facility] Last Admin: 11/15/17 09:18 Dose: 200 mg - Objective Vital Signs: Vital Signs Temperature 99.0 F 11/14/17 23:08 Pulse Rate 92 H 11/15/17 09:17 Respiratory Rate 20 11/14/17 23:08 Blood Pressure 140/92 11/14/17 23:08 O2 Sat by Pulse Oximetry (%) 96 11/14/17 21:00 Constitutional: Yes: Moderate Distress Cardiovascular: Yes: Regular Rate and Rhythm, S1, S2 Respiratory: Yes: CTA Bilaterally Gastrointestinal: Yes: Normal Bowel Sounds, Soft Edema: No Neurological: Yes: Alert, Oriented Labs: CBC, BMP 11/15/17 08:02 11/15/17 06:00 INR, PTT INR 1.10 (0.82-1.09) 11/14/17 06:20 Problem List - Problems (1) Alcohol withdrawal Assessment/Plan: detox protocol lbrium MVT folate thiamine Code(s): F10.239 - ALCOHOL DEPENDENCE WITH WITHDRAWAL, UNSPECIFIED Qualifiers: Complication of substance-induced condition: uncomplicated Qualified Code(s ): F10.230 - Alcohol dependence with withdrawal, uncomplicated (2) Thrombocytopenia Assessment/Plan: grant continue to [facility] Code(s): D69.6 - THROMBOCYTOPENIA, UNSPECIFIED (3) Atrial fibrillation Assessment/Plan: digoxin and BB Code(s): I48.91 - UNSPECIFIED ATRIAL FIBRILLATION (4) Electrolyte abnormality Assessment/Plan: repleted K and Mg Code(s): E87.8 - OTH DISORDERS OF ELECTROLYTE AND FLUID BALANCE, NEC
[2017-11-15] MEDS ORDERED: POTASSIUM CHLORIDE TABS 20 MEQ TABLET.ER (FP) PO ONE (12:45)
[2017-11-15] MEDS ORDERED: MAGNESIUM 1GM/D5W - 1 GM/100 ML IVPB IVPB ONE (13:00)
[2017-11-15 14:56] LABS: PLATELET ESTIMATE DECREASED
--- NOTE | 2017-11-15 15:38 | EKG ---
Test Reason : Blood Pressure : / mmHG Vent. Rate : 078 BPM Atrial Rate : 065 BPM P-R Int : 000 ms QRS Dur : 094 ms QT Int : 370 ms P-R-T Axes : 000 096 243 degrees QTc Int : 421 ms ATRIAL FIBRILLATION RIGHTWARD AXIS ABNORMAL ECG WHEN COMPARED WITH ECG OF 14-NOV-2017 05:51, QT HAS SHORTENED Confirmed by MARISSA JENKINS MD ([id number]) on 11/15/2017 3:38:05 PM Referred By: Jessica COUGHLIN Confirmed By:MARISSA JENKINS MD
[2017-11-16] MEDS: chlordiazePOXIDE HCL 25 MG CAPSULE PO SCH (06:26)
[2017-11-16 08:23] LABS: BASO % 0.3 % (0-2.0); EOS % 4.5 % (0-4.5); HEMOGLOBIN 11.7 GM/dL (10.7-15.3); LYMPH % 26.9 % (8-40); MCH 28.8 pg (25.7-33.7); MCHC 33.5 g/dl (32.0-36.0); MONO % 10.3 % (3.8-10.2); PLATELET COUNT 70 K/MM3 (134-434); RBC 4.07 M/mm3 (3.60-5.2); WHITE BLOOD COUNT 3.5 K/mm3 (4.0-10.0)
[2017-11-16 08:56] LABS: CHLORIDE 102 mmol/L (98-107); POTASSIUM 3.2 mmol/L (3.5-5.1); SODIUM 140 mmol/L (136-145)
[2017-11-16 09:05] LABS: ALBUMIN 3.3 g/dl (3.4-5.0); ALK PHOS 93 U/L (45-117); ANION GAP 12 (8-16); BILIRUBIN,TOTAL 1.2 mg/dL (0.2-1.0); BLOOD UREA NITROGEN 8 mg/dL (7-18); CALCIUM 8.1 mg/dL (8.5-10.1); CO2 26 mmol/L (21-32); CREATININE 1.1 mg/dL (0.55-1.02); GLUCOSE,RANDOM 202 mg/dL (74-106); MAGNESIUM 1.3 mg/dL (1.8-2.4); SGOT/AST 103 U/L (15-37); SGPT/ALT 66 U/L (12-78); TOT PROT 6.9 g/dl (6.4-8.2)
[2017-11-16] MEDS ORDERED: PT OWN MED DRAWER 7, Y5N ONE (09:46)
[2017-11-16] MEDS: MULTIVITAMINS (DAILY MVI) TABLET (FP) PO SCH (09:54)
[2017-11-16] MEDS: FOLIC ACID 1 MG TABLET (FP) PO SCH (09:54)
[2017-11-16] MEDS: METOPROLOL TARTRATE 50 MG TABLET (FP) PO SCH ×2 (09:54→22:32)
[2017-11-16] MEDS: THIAMINE HCL 200 MG/2 ML VIAL IM SCH (09:54)
[2017-11-16] MEDS: DIGOXIN 0.125 MG TABLET (FP) PO SCH (09:54)
[2017-11-16] MEDS: PANTOPRAZOLE 40 MG TABLET (FP) PO SCH (09:54)
--- NOTE | 2017-11-16 12:26 | PN ---
Progress Note, Physician Chief Complaint: Alcohol Withdrawal History of Present Illness: NAD, self ambulatory feels much better, no tremors, appetite improved refuses to go to rehab still on librium protocol - Current Medication List Current Medications: Active Medications Chlordiazepoxide HCl (Librium -) 50 mg PO [id number] [facility] Stop: 11/15/17 05:01 Last Admin: 11/15/17 05:50 Dose: 50 mg Chlordiazepoxide HCl (Librium -) 15 mg PO [id number] [facility] Stop: 11/17/17 05:01 Chlordiazepoxide HCl (Librium -) 25 mg PO Q4H PRN PRN Reason: WITHDRAWAL(CONT SUBST) Stop: 11/17/17 10:54 Last Admin: 11/15/17 09:30 Dose: 25 mg Digoxin (Lanoxin -) 0.125 mg PO DAILY [facility] Last Admin: 11/16/17 09:54 Dose: 0.125 mg Folic Acid (Folic Acid -) 1 mg PO DAILY [facility] Last Admin: 11/16/17 09:54 Dose: 1 mg Potassium Chloride/Dextrose/Sod Cl (D5-1/2ns+20 Meq Kcl -) 20 meq in 1,000 mls @ 100 mls/hr IV ASDIR [facility] Last Admin: 11/15/17 22:31 Dose: 100 mls/hr Metoprolol Tartrate (Lopressor -) 100 mg PO BID [facility] Last Admin: 11/16/17 09:54 Dose: 100 mg Multivitamins/Minerals/Vitamin C (Tab-A-Vit -) 1 tab PO DAILY [facility] Last Admin: 11/16/17 09:54 Dose: 1 tab Ondansetron HCl (Zofran Injection) 4 mg IVPUSH Q8H PRN PRN Reason: NAUSEA AND/OR VOMITING Last Admin: 11/14/17 15:39 Dose: 4 mg Pantoprazole Sodium (Protonix -) 40 mg PO DAILY [facility] Last Admin: 11/16/17 09:54 Dose: 40 mg Potassium Chloride (Potassium Chloride Oral Liquid) 40 meq PO DAILY [facility] Thiamine HCl (Vitamin B1 Injection -) 200 mg IM DAILY [facility] Last Admin: 11/16/17 09:54 Dose: 200 mg - Objective Vital Signs: Vital Signs Temperature 98.8 F 11/16/17 05:38 Pulse Rate 99 H 11/16/17 09:54 Respiratory Rate 20 11/16/17 05:38 Blood Pressure 120/88 11/16/17 05:38 O2 Sat by Pulse Oximetry (%) 96 11/15/17 21:00 Constitutional: Yes: Well Nourished, No Distress, Calm Cardiovascular: Yes: Regular Rate and Rhythm Respiratory: Yes: Regular Gastrointestinal: Yes: Normal Bowel Sounds, Soft Musculoskeletal: Yes: WNL Extremities: Yes: WNL Edema: No Peripheral Pulses WNL: Yes Neurological: Yes: Alert, Oriented Psychiatric: Yes: Alert, Oriented Labs: CBC, BMP 11/16/17 07:00 11/16/17 07:00 INR, PTT INR 1.10 (0.82-1.09) 11/14/17 06:20 Problem List - Problems (1) Alcohol withdrawal Assessment/Plan: -[facility] consult -librium protocol -refuses rehab -IVF -Thiamine -multivitamin -Folic acid Code(s): F10.239 - ALCOHOL DEPENDENCE WITH WITHDRAWAL, UNSPECIFIED Qualifiers: Complication of substance-induced condition: uncomplicated Qualified Code(s ): F10.230 - Alcohol dependence with withdrawal, uncomplicated (2) Hypokalemia Assessment/Plan: -D5W+1/2 NS+KCl20 meq--- changed to D5W+1/2 NS+ KCl 40 meq -KCl 40 meq po daily Code(s): E87.6 - HYPOKALEMIA Assessment/Plan see problem list
[2017-11-16] MEDS: chlordiazePOXIDE 5 MG CAPSULE PO SCH ×3 (12:49→22:33)
[2017-11-16] MEDS: POTASSIUM CHLORIDE ORAL LIQUID 20 MEQ/15 ML PO SCH (14:09)
[2017-11-16] MEDS: D5-1/2NS+20 MEQ KCL - 20 MEQ/1,000 ML INFUS.BAG IV SCH (14:12)
[2017-11-16] MEDS: D5-1/2NS+40 MEQ KCL - 40 MEQ/1,000 ML INFUS.BAG IV SCH (18:28)
[2017-11-17] MEDS: D5-1/2NS+40 MEQ KCL - 40 MEQ/1,000 ML INFUS.BAG IV SCH ×2 (06:07→21:35)
[2017-11-17] MEDS: chlordiazePOXIDE 5 MG CAPSULE PO SCH (06:08)
[2017-11-17 06:39] LABS: BASO % 0.3 % (0-2.0); EOS % 4.3 % (0-4.5); HEMATOCRIT 32.3 % (32.4-45.2); HEMOGLOBIN 10.7 GM/dL (10.7-15.3); LYMPH % 26.4 % (8-40); MCHC 33.1 g/dl (32.0-36.0); MEAN CELL VOLUME 87.4 fl (80-96); MEAN PLT VOLUME 10.4 fl (7.5-11.1); MONO % 10.7 % (3.8-10.2); NEUT % 58.3 % (42.8-82.8); PLATELET COUNT 66 K/MM3 (134-434); RDW 17.4 % (11.6-15.6); WHITE BLOOD COUNT 3.8 K/mm3 (4.0-10.0)
[2017-11-17 07:18] LABS: CHLORIDE 104 mmol/L (98-107); POTASSIUM 4.1 mmol/L (3.5-5.1); SODIUM 139 mmol/L (136-145)
[2017-11-17 07:22] LABS: ANION GAP 6 (8-16); BLOOD UREA NITROGEN 9 mg/dL (7-18); CALCIUM 8.4 mg/dL (8.5-10.1); CO2 29 mmol/L (21-32); CREATININE 1.1 mg/dL (0.55-1.02); GLUCOSE,RANDOM 212 mg/dL (74-106)
[2017-11-17] MEDS: MULTIVITAMINS (DAILY MVI) TABLET (FP) PO SCH (09:17)
[2017-11-17] MEDS: METOPROLOL TARTRATE 50 MG TABLET (FP) PO SCH ×2 (09:17→21:36)
[2017-11-17] MEDS: POTASSIUM CHLORIDE ORAL LIQUID 20 MEQ/15 ML PO SCH (09:17)
[2017-11-17] MEDS: PANTOPRAZOLE 40 MG TABLET (FP) PO SCH (09:17)
[2017-11-17] MEDS: FOLIC ACID 1 MG TABLET (FP) PO SCH (09:17)
[2017-11-17] MEDS: DIGOXIN 0.125 MG TABLET (FP) PO SCH (09:17)
[2017-11-17] MEDS: THIAMINE HCL 200 MG/2 ML VIAL IM SCH (09:56)
--- NOTE | 2017-11-17 12:12 | PN ---
Progress Note, Physician Chief Complaint: AWAKE ALERT DENIES ETOH WITHDRAWEL SX EVENTS AND NOTES REVIEWED - Current Medication List Current Medications: Active Medications Chlordiazepoxide HCl (Librium -) 50 mg PO [id number] [facility] Stop: 11/15/17 05:01 Last Admin: 11/15/17 05:50 Dose: 50 mg Chlordiazepoxide HCl (Librium -) 25 mg PO Q4H PRN PRN Reason: WITHDRAWAL(CONT SUBST) Stop: 11/17/17 10:54 Last Admin: 11/15/17 09:30 Dose: 25 mg Digoxin (Lanoxin -) 0.125 mg PO DAILY [facility] Last Admin: 11/17/17 09:17 Dose: 0.125 mg Folic Acid (Folic Acid -) 1 mg PO DAILY [facility] Last Admin: 11/17/17 09:17 Dose: 1 mg Dextrose/Sodium Chloride (D5-1/2ns+40 Meq Kcl -) 40 meq in 1,000 mls @ 75 mls/ hr IV ASDIR [facility] Last Admin: 11/17/17 06:07 Dose: 75 mls/hr Metoprolol Tartrate (Lopressor -) 100 mg PO BID [facility] Last Admin: 11/17/17 09:17 Dose: 100 mg Multivitamins/Minerals/Vitamin C (Tab-A-Vit -) 1 tab PO DAILY [facility] Last Admin: 11/17/17 09:17 Dose: 1 tab Ondansetron HCl (Zofran Injection) 4 mg IVPUSH Q8H PRN PRN Reason: NAUSEA AND/OR VOMITING Last Admin: 11/14/17 15:39 Dose: 4 mg Pantoprazole Sodium (Protonix -) 40 mg PO DAILY [facility] Last Admin: 11/17/17 09:17 Dose: 40 mg Potassium Chloride (Potassium Chloride Oral Liquid) 40 meq PO DAILY [facility] Last Admin: 11/17/17 09:17 Dose: 40 meq Thiamine HCl (Vitamin B1 Injection -) 200 mg IM DAILY [facility] Last Admin: 11/17/17 09:56 Dose: 200 mg - Objective Vital Signs: Vital Signs Temperature 98.6 F 11/17/17 10:00 Pulse Rate 76 11/17/17 10:00 Respiratory Rate 20 11/17/17 10:00 Blood Pressure 134/96 11/17/17 10:00 O2 Sat by Pulse Oximetry (%) 96 11/16/17 21:00 Constitutional: Yes: No Distress Eyes: Yes: WNL HENT: Yes: WNL Neck: Yes: WNL Cardiovascular: Yes: WNL Respiratory: Yes: WNL Gastrointestinal: Yes: WNL Genitourinary: Yes: WNL Musculoskeletal: Yes: WNL Extremities: Yes: WNL Edema: No Peripheral Pulses WNL: Yes Integumentary: Yes: WNL Wound/Incision: Yes: Clean/Dry Neurological: Yes: WNL ...Motor Strength: WNL Psychiatric: Yes: WNL Labs: CBC, BMP 11/17/17 06:00 11/17/17 06:00 INR, PTT INR 1.10 (0.82-1.09) 11/14/17 06:20 Problem List - Problems (1) Alcohol withdrawal Code(s): F10.239 - ALCOHOL DEPENDENCE WITH WITHDRAWAL, UNSPECIFIED Qualifiers: Complication of substance-induced condition: uncomplicated Qualified Code(s ): F10.230 - Alcohol dependence with withdrawal, uncomplicated (2) Alcoholic fatty liver Code(s): K70.0 - ALCOHOLIC FATTY LIVER (3) Cholestasis Code(s): K83.1 - OBSTRUCTION OF BILE DUCT (4) Thrombocytopenia Code(s): D69.6 - THROMBOCYTOPENIA, UNSPECIFIED (5) Abdominal pain Code(s): R10.9 - UNSPECIFIED ABDOMINAL PAIN Qualifiers: Abdominal location: generalized Qualified Code(s): R10.84 - Generalized abdominal pain Assessment/Plan [facility] OUTPATIENT
[2017-11-18] MEDS ORDERED: PT OWN MED DRAWER 7, Y5N ONE (10:36)
--- NOTE | 2017-11-18 10:45 | DS ---
Physical Examination Vital Signs: Vital Signs Temperature 98.5 F 11/18/17 05:30 Pulse Rate 74 11/18/17 05:30 Respiratory Rate 18 11/18/17 03:00 Blood Pressure 151/85 11/18/17 05:30 O2 Sat by Pulse Oximetry (%) 98 11/17/17 21:00 Constitutional: Yes: No Distress Eyes: Yes: WNL HENT: Yes: WNL Neck: Yes: WNL Cardiovascular: Yes: WNL Respiratory: Yes: WNL Gastrointestinal: Yes: WNL Musculoskeletal: Yes: WNL Extremities: Yes: WNL Edema: No Peripheral Pulses WNL: Yes Integumentary: Yes: WNL Wound/Incision: Yes: Clean/Dry Neurological: Yes: WNL ...Motor Strength: WNL Psychiatric: Yes: WNL Labs: CBC, BMP 11/17/17 06:00 11/17/17 06:00 Discharge Summary Reason For Visit: ALCOHOL WITHDRAWAL SYNDROME Current Active Problems Alcohol withdrawal (Acute) Alcoholic fatty liver (Acute) Cholestasis (Acute) Electrolyte abnormality (Acute) Thrombocytopenia (Acute) Procedures: Principal: CXR/EKG Hospital Course: ADMITTED FOR ACUTE ALCOHOL WITHDRAWEL, TREATED WITH LIBRIUM PROTOCOL, THIAMINE, FOLIC ACID, MVI. MEDICARE INTERVIEWER OFFERED OUTPATIENT AND INPATIENT DETOX SUPPORT HOWEVER PATIENT DECLINED AND WANTS TO GO HOME Condition: Fair - Instructions Diet, Activity, Other Instructions: MUST SEE ME TOMORROW AT 10 AM LOW SALT DIET Referrals: Shan Nino MD [Primary Care Provider] - Disposition: HOME - Home Medications Comprehensive Discharge Medication List: Ambulatory Orders Digoxin [Lanoxin -] 0.125 mg PO DAILY #30 tablet MDD 1 07/05/17 Metoprolol Tartrate [Lopressor -] 100 mg PO BID #30 tablet MDD 2 07/05/17 Folic Acid - 1 mg PO DAILY tablet 11/18/17 Multivitamins [Multivit ([facility] Formul[facility])] 1 tab PO DAILY tab 11/18/17 Pantoprazole Sodium [Protonix -] 40 mg PO DAILY #30 tablet.ec 11/18/17 Thiamine HCl [Vitamin B1 Injection -] 200 mg IM DAILY vial 11/18/17
[2017-11-18] MEDS: POTASSIUM CHLORIDE ORAL LIQUID 20 MEQ/15 ML PO SCH (10:50)
[2017-11-18] MEDS: METOPROLOL TARTRATE 50 MG TABLET (FP) PO SCH (10:50)
[2017-11-18] MEDS: THIAMINE HCL 200 MG/2 ML VIAL IM SCH (10:50)
[2017-11-18] MEDS: PANTOPRAZOLE 40 MG TABLET (FP) PO SCH (10:50)
[2017-11-18] MEDS: FOLIC ACID 1 MG TABLET (FP) PO SCH (10:51)
[2017-11-18] MEDS: MULTIVITAMINS (DAILY MVI) TABLET (FP) PO SCH (10:51)
[2017-11-18] MEDS: DIGOXIN 0.125 MG TABLET (FP) PO SCH (10:52)
[2017-11-18 10:54] VITALS: PULSE 79
[2017-11-18 13:52] VITALS: BP 145/107; TEMP 98.3
== END 2017-11-18 12:46 | disposition home or self-care (01) | DRG 896 ==
LOC: JER 05:04 → JERBED 09:34 → J6S 11:40
PROVIDERS: ADMIT Family Medicine; ATTEND Family Medicine
DX: F10.230 Alcohol dependence with withdrawal, uncomplicated (principal); K85.20 Alcohol induced acute pancreatitis without necrosis or infection; F10.220 Alcohol dependence with intoxication, uncomplicated; I10 Essential (primary) hypertension; E78.5 Hyperlipidemia, unspecified; Z72.0 Tobacco use; D69.6 Thrombocytopenia, unspecified; R10.84 Generalized abdominal pain; K70.0 Alcoholic fatty liver; I48.0 Paroxysmal atrial fibrillation; E11.9 Type 2 diabetes mellitus without complications; E87.8 Other disorders of electrolyte and fluid balance, not elsewhere classified; E87.6 Hypokalemia
CPT/HCPCS: 36415; 71046-TC-FY; 80048; 80053; 80307; 81003; 81015; 82150; 82607; 83036; 83690; 83735; 84443; 85025; 85610; 93005; 93010; 97116-GP; 97162-GP; 99282-25; J7030

== ENCOUNTER 2018-02-02 05:16 | Emergency (ER) | payer OTHER ==
[2018-02-02 05:51] VITALS: BP 104/77; PULSE 96; TEMP 98.4; BMI 20.2
--- NOTE | 2018-02-02 05:52 | PDOC ---
History of Present Illness - General Chief Complaint: Injury Stated Complaint: FALL/INJURY Time Seen by Provider: 02/02/18 05:51 History Source: Patient Exam Limitations: No Limitations - History of Present Illness Initial Comments: 02/02/18 06:38 Patient presents to the emergency department today for evaluation of a fall earlier this evening. Patient states she was drinking earlier in the evening and states she drank approximately half a gallon of vodka. She does not remember falling. She does not remember hitting her head. She states that she was on the ground in her apartment when she woke up and called 911. Patient is alert and oriented to person place and time. Denies fever, chills, headache, neck pain, back pain, shortness of breath, chest pain, nausea, vomiting, diarrhea, lightheadedness and weakness. Past History - Travel Traveled outside of the country in the last 30 days: No Close contact w/someone who was outside of country & ill: No - Past Medical History Allergies/Adverse Reactions: Allergies Allergy/AdvReac Type Severity Reaction Status Date / Time No Known Allergies Allergy Verified 02/02/18 05:43 Home Medications: Ambulatory Orders Digoxin [Lanoxin -] 0.125 mg PO DAILY #30 tablet MDD 1 07/05/17 Metoprolol Tartrate [Lopressor -] 100 mg PO BID #30 tablet MDD 2 07/05/17 Folic Acid - 1 mg PO DAILY tablet 11/18/17 Multivitamins [Multivit ([facility] Form[facility])] 1 tab PO DAILY tab 11/18/17 Pantoprazole Sodium [Protonix -] 40 mg PO DAILY #30 tablet.ec 11/18/17 Thiamine HCl [Vitamin B1 Injection -] 200 mg IM DAILY vial 11/18/17 Anemia: No Asthma: No Cancer: No Cardiac Disorders: Yes (AFIB) CVA: No COPD: No CHF: No DVT: No Dementia: No Diabetes: Yes Dialysis: No GI Disorders: Yes (IBS, ulcerative colitis) Disorders: No HTN: Yes Hypercholesterolemia: Yes Kidney Stones: No Liver Disease: No Psychiatric Problems: No Seizures: No Thyroid Disease: No Lung CA: No - Surgical History Abdominal Surgery: No Appendectomy: No Cardiac Surgery: No Cholecystectomy: No Lung Surgery: No Neurologic Surgery: No Orthopedic Surgery: No - Immunization History Immunization Up to Date: Yes - Suicide/Smoking/Psychosocial Hx Smoking Status: Yes Smoking History: Never smoked Have you smoked in the past 12 months: No Number of Cigarettes Smoked Daily: 0 If you are a former smoker, when did you quit?: 40 YEARS Information on smoking cessation initiated: No Hx Alcohol Use: No Drug/Substance Use Hx: No Substance Use Type: Alcohol Hx Substance Use Treatment: No Review of Systems - Review of Systems Able to Perform ROS?: Yes Comments:: 02/02/18 06:35 CONSTITUTIONAL: Absent: fever, chills, diaphoresis, generalized weakness, malaise, loss of appetite HEENT: Absent: rhinorrhea, nasal congestion, throat pain, throat swelling, difficulty swallowing, mouth swelling, ear pain, eye pain, visual Changes CARDIOVASCULAR: Absent: chest pain, loss of consciousness, palpitations, irregular heart rate, peripheral edema RESPIRATORY: Absent: cough, shortness of breath, dyspnea with exertion, orthopnea, wheezing, stridor, hemoptysis GASTROINTESTINAL: Absent: abdominal pain, abdominal distension, nausea, vomiting, diarrhea, constipation, melena, hematochezia GENITOURINARY: Absent: dysuria, frequency, urgency, hesitancy, hematuria, flank pain, genital pain MUSCULOSKELETAL: Absent: myalgia, arthralgia, joint swelling SKIN: Present: multiple bruises on head, arms b/l and legs b/l. Abrasion to R elbow Absent: rash, itching, pallor HEMATOLOGIC/IMMUNOLOGIC: Absent: easy bleeding, easy bruising, lymphadenopathy, frequent infections ENDOCRINE: Absent: unexplained weight gain, unexplained weight loss, heat intolerance, cold intolerance NEUROLOGIC: Absent: headache, focal weakness or paresthesias, dizziness, unsteady gait, seizure, mental status changes, bladder or bowel incontinence PSYCHIATRIC: Absent: anxiety, depression, suicidal or homicidal ideation, hallucinations. Is the patient limited Wolof proficient: No *Physical Exam - Vital Signs Last Vital Signs Temp Pulse Resp BP Pulse Ox 98.4 F 96 H 19 104/77 98 02/02/18 05:39 02/02/18 05:39 02/02/18 05:39 02/02/18 05:39 02/02/18 05:39 - Physical Exam Comments: 02/02/18 06:36 GENERAL: Well developed, well nourished, disheveled. Awake and alert. No acute distress. HEENT: Normocephalic, atraumatic. PERRLA, EOMI. No conjunctival pallor. Sclera are non- icteric. Moist mucous membranes. Oropharynx is clear. NECK: Supple. Full ROM. No JVD. Carotid pulses 2+ and symmetric, without bruits. No thyromegaly. No lymphadenopathy. CARDIOVASCULAR: Regular rate and rhythm. No murmurs, rubs, or gallops. Distal pulses are 2+ and symmetric. PULMONARY: No evidence of respiratory distress. Lungs clear to auscultation bilaterally. No wheezing, rales or rhonchi. ABDOMINAL: Soft. Non-tender. Non-distended. No rebound or guarding. No organomegaly. Normoactive bowel sounds. MUSCULOSKELETAL Bruising to L wrist with swelling. No TTP. Bruising to R elbow with no TTP. Normal range of motion at all joints. No bony deformities or tenderness. No CVA tenderness. EXTREMITIES: No cyanosis. No clubbing. No edema. No calf tenderness. SKIN: Multiple bruises to face, arms, wrists, and legs. 1cm round abrasion to the R elbow. Warm and dry. Normal capillary refill. No rashes. No jaundice. NEUROLOGICAL: Alert, awake, appropriate. Cranial nerves 2-12 intact. No deficits to light touch and temperature in face, upper extremities and lower extremities. No motor deficits in the in face, upper extremities and lower extremities. Normoreflexic in the upper and lower extremities. Normal speech. Toes are down- going bilaterally. Gait is normal without ataxia. PSYCHIATRIC: Cooperative. Good eye contact. Appropriate mood and affect. Medical Decision Making - Medical Decision Making 02/02/18 06:39 Patient is a 67-year-old female well-known to the emergency department, who presents to the emergency department for evaluation after falling earlier this evening. Patient is currently sober at this time, able to ambulate, AAO 3. Patient does not remember the date of her last tetanus shot. -L elbow abrasion cleaned. -Head CT, x-rays of the elbow and wrist ordered to rule out trauma status post fall. -Lorazepam, tetanus, Tylenol ordered for pain and anxiety. After receiving medications, patient states she no longer wants to stay and walks out of the emergency department. Tried walking the patient back to bed to complete her workup, however patient is adamant about leaving and leaves before she can sign AMA forms. *DC/Admit/Observation/Transfer Diagnosis at time of Disposition: Alcohol dependence with uncomplicated withdrawal Elbow abrasion Qualifiers: Encounter type: initial encounter Laterality: right Qualified Code(s): S50.311A - Abrasion of right elbow, initial encounter Wrist pain Qualifiers: Laterality: left Qualified Code(s): M25.532 - Pain in left wrist - Discharge Dispostion Disposition: ELOPED Condition at time of disposition: Fair - Referrals Referrals: Shan Nino MD [Primary Care Provider] - - Patient Instructions - Post Discharge Activity
[2018-02-02] MEDS ORDERED: ACETAMINOPHEN 325 MG TABLET (FP) PO ONE (05:53)
[2018-02-02] MEDS ORDERED: LORazepam 1 MG TABLET PO ONE (05:53)
[2018-02-02] MEDS ORDERED: DIPHTH,PERTUSS(ACELL),TET 0.5 ML DISP.SYRIN IM ONE (05:54)
[2018-02-02] MEDS ORDERED: LORazepam 0.5 MG TABLET ONE (06:24)
[2018-02-02] MEDS ORDERED: ACETAMINOPHEN 325 MG TABLET (FP) ONE (06:24)
== END 2018-02-02 06:00 | disposition left against medical advice (07) ==
LOC: JER 05:16
PROC: 3E0234Z Introduction of Serum, Toxoid and Vaccine into Muscle, Percutaneous Approach (ICD-10-PCS; principal; 2018-02-02)
DX: S00.83XA Contusion of other part of head, initial encounter (principal); S40.022A Contusion of left upper arm, initial encounter; S40.021A Contusion of right upper arm, initial encounter; S80.12XA Contusion of left lower leg, initial encounter; S80.11XA Contusion of right lower leg, initial encounter; W18.39XA Other fall on same level, initial encounter; Y93.89 Activity, other specified; Y92.038 Other place in apartment as the place of occurrence of the external cause; Y99.9 Unspecified external cause status; F10.220 Alcohol dependence with intoxication, uncomplicated
CPT/HCPCS: 90471; 90715; 99281-25

== ENCOUNTER 2018-02-02 17:03 | Emergency (ER) | payer OTHER ==
[2018-02-02 17:31] VITALS: BP 138/84; PULSE 117; TEMP 98.6; BMI 24.9
[2018-02-02] MEDS ORDERED: IBUPROFEN 600 MG TABLET (FP) PO ONE ×2 (17:46→18:15)
[2018-02-02] MEDS ORDERED: SODIUM CHLORIDE 1,000 ML IV STA (17:47)
[2018-02-02] MEDS ORDERED: LORazepam 2 MG/ML SDV VIAL ONE (18:17)
--- NOTE | 2018-02-02 18:57 | PDOC ---
History of Present Illness - General Chief Complaint: Injury Stated Complaint: FALL Time Seen by Provider: 02/02/18 17:36 History Source: Patient - History of Present Illness Initial Comments: 02/02/18 18:35 Patient is 67F with history of afib, alcohol abuse (drinks pint of vodka per day ), htn here today complaining of a fall two days ago. Patient was seen in the ED this morning, when she left AMA after getting medications. Patient states that she doesn't remember how she fell, stating that she has been drinking heavily for the past week. Endorses history of withdrawals, denies history of seizures. Given tylenol and ativan in the morning in the ED. Last drink today. Denies fevers, chills, nausea, vomiting. Endorses headache and neck pain. Denies chest pain and shortness of breath. Past History - Past Medical History Allergies/Adverse Reactions: Allergies Allergy/AdvReac Type Severity Reaction Status Date / Time No Known Allergies Allergy Verified 02/02/18 05:43 Home Medications: Ambulatory Orders Lorazepam 10 mg PO TID 02/02/18 Metoprolol Succinate 100 mg PO BID 02/02/18 Zolpidem Tartrate 10 mg PO HS 02/02/18 Anemia: No Asthma: No Cancer: No Cardiac Disorders: Yes (AFIB) CVA: No COPD: No CHF: No DVT: No Dementia: No Diabetes: Yes Dialysis: No GI Disorders: Yes (IBS, ulcerative colitis) Disorders: No HTN: Yes Hypercholesterolemia: Yes Kidney Stones: No Liver Disease: No Psychiatric Problems: No Seizures: No Thyroid Disease: No Lung CA: No - Surgical History Abdominal Surgery: No Appendectomy: No Cardiac Surgery: No Cholecystectomy: No Lung Surgery: No Neurologic Surgery: No Orthopedic Surgery: No - Immunization History Immunization Up to Date: Yes - Suicide/Smoking/Psychosocial Hx Smoking Status: Yes Smoking History: Never smoked Have you smoked in the past 12 months: No Number of Cigarettes Smoked Daily: 0 If you are a former smoker, when did you quit?: 40 YEARS Hx Alcohol Use: Yes Drug/Substance Use Hx: No Substance Use Type: Alcohol Hx Substance Use Treatment: No Review of Systems - Review of Systems Comments:: 02/02/18 18:57 GENERAL/CONSTITUTIONAL: No fever or chills. No weakness. HEAD, EYES, EARS, NOSE AND THROAT: No change in vision. No sore throat. CARDIOVASCULAR: No chest pain or shortness of breath RESPIRATORY: No cough, wheezing, or hemoptysis. GASTROINTESTINAL: No nausea, vomiting, diarrhea or constipation. GENITOURINARY: No dysuria, frequency, or change in urination. MUSCULOSKELETAL: No joint or muscle swelling or pain. +neck pain. No back pain. SKIN: No rash NEUROLOGIC: No headache, vertigo, loss of consciousness, or change in strength/ sensation. ENDOCRINE: No increased thirst. No abnormal weight change HEMATOLOGIC/LYMPHATIC: No anemia, easy bleeding, or history of blood clots. ALLERGIC/IMMUNOLOGIC: No hives or skin allergy. *Physical Exam - Vital Signs Last Vital Signs Temp Pulse Resp BP Pulse Ox 98.6 F 117 H 18 138/84 98 02/02/18 17:15 02/02/18 17:15 02/02/18 17:15 02/02/18 17:15 02/02/18 17:15 - Physical Exam Comments: 02/02/18 18:59 GENERAL: Awake, alert, and fully oriented, in no acute distress, demanding to go to CT, standing up without difficulty. HEAD: No signs of trauma, normocephalic, atraumatic EYES: PERRLA, EOMI, sclera anicteric, conjunctiva clear ENT: Auricles normal inspection, hearing grossly normal, nares patent, oropharynx clear without exudates. Moist mucosa NECK: Normal ROM, supple, no lymphadenopathy, JVD, or masses, no midline tenderness LUNGS: No distress, speaks full sentences, clear to auscultation bilaterally HEART: Regular rate and rhythm, normal S1 and S2, no murmurs, rubs or gallops, peripheral pulses normal and equal bilaterally. ABDOMEN: Soft, nontender, normoactive bowel sounds. No guarding, no rebound. No masses EXTREMITIES: Normal inspection, Normal range of motion, no edema. No clubbing or cyanosis. NEUROLOGICAL: Cranial nerves II through XII grossly intact. Normal speech, normal gait, no focal sensorimotor deficits SKIN: Warm, Dry, normal turgor, no rashes or lesions noted. ED Treatment Course - LABORATORY CBC & Chemistry Diagram: 02/02/18 21:02 02/02/18 21:02 - RADIOLOGY Radiology Studies Ordered: Category Date Time Status CERVICAL SPINE CT W/O CONTR [CT] Stat CT Scan 02/02/18 17:[address] WITHOUT CONTRAST [CT] Stat CT Scan 02/02/18 17:46 Ordered Medical Decision Making - Medical Decision Making 02/02/18 18:59 Patient is 67F with history of afib and etoh abuse here today with a fall. Vitals notable for HR of 116. Normal exam. In c-collar. Given ibuprofen, ativan and fluids, small amount of shaking on exam. 02/02/18 21:17 Patient removed c-collar on own. Walking around ED. 02/02/18 21:[address] normal. Patient's iv removed, eloped. Patient was alert, clinically sober and ambulatory in ED. 02/02/18 21:46 Laboratory Tests 02/02/18 02/02/18 21:02 21:02 WBC 6.8 Hgb 11.8 Plt Count 147 D Anion Gap 17 H BUN 38 [address] Creat[address] 1.[address] cervical spine negative. Labs suggest dehydration, alcohol use. *DC/Admit/Observation/Transfer Diagnosis at time of Disposition: Fall - Discharge Dispostion Disposition: ELOPED Condition at time of disposition: Stable Decision to Admit order: No - Referrals Referrals: Shan Nino MD [Primary Care Provider] - - Patient Instructions - Post Discharge Activity
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
[2018-02-02 21:08] LABS: HEMATOCRIT 35.3 % (32.4-45.2); HEMOGLOBIN 11.8 GM/dL (10.7-15.3); MCHC 33.5 g/dl (32.0-36.0); MEAN CELL VOLUME 86.6 fl (80-96); MEAN PLT VOLUME 10.4 fl (7.5-11.1); PLATELET COUNT 147 K/MM3 (134-434); RBC 4.08 M/mm3 (3.60-5.2); RDW 15.6 % (11.6-15.6); WHITE BLOOD COUNT 6.8 K/mm3 (4.0-10.0)
[2018-02-02 21:33] LABS: ANION GAP 17 MMOL/L (8-16); BLOOD UREA NITROGEN 38 mg/dL (7-18); CALCIUM 7.8 mg/dL (8.5-10.1); CHLORIDE 101 mmol/L (98-107); CO2 21 mmol/L (21-32); CREATININE 1.9 mg/dL (0.55-1.02); GLUCOSE,RANDOM 180 mg/dL (74-106); POTASSIUM 4.2 mmol/L (3.5-5.1); SGOT/AST 89 U/L (15-37); SGPT/ALT 74 U/L (12-78); SODIUM 139 mmol/L (136-145); TOT PROT 7.6 g/dl (6.4-8.2)
[2018-02-02 21:34] LABS: ALK PHOS 111 U/L (45-117)
== END 2018-02-02 22:00 | disposition left against medical advice (07) ==
LOC: JER 17:03
PROC: 3E033NZ Introduction of Analgesics, Hypnotics, Sedatives into Peripheral Vein, Percutaneous Approach (ICD-10-PCS; principal; 2018-02-02)
PROC: 3E0337Z Introduction of Electrolytic and Water Balance Substance into Peripheral Vein, Percutaneous Approach (ICD-10-PCS; 2018-02-02)
DX: Z04.3 Encounter for examination and observation following other accident (principal); I48.91 Unspecified atrial fibrillation; F10.10 Alcohol abuse, uncomplicated
CPT/HCPCS: 36415; 70450-TC; 72125-TC; 80053; 85027; 99284-25; J7030

== ENCOUNTER 2018-02-04 05:48 | Emergency (ER) | payer OTHER ==
[2018-02-04 06:24] VITALS: TEMP 98.4; BMI 24.3
[2018-02-04] MEDS ORDERED: ONDANSETRON *ODT* 4 MG TABLET SL ONE (06:29)
[2018-02-04] MEDS ORDERED: IBUPROFEN 600 MG TABLET (FP) PO ONE ×2 (06:29→06:34)
[2018-02-04] MEDS ORDERED: SODIUM CHLORIDE 0.9% 500 ML INFUS.BAG IV ONE (06:29)
[2018-02-04] MEDS ORDERED: ONDANSETRON *ODT* 4 MG TABLET ONE (06:36)
--- NOTE | 2018-02-04 06:36 | PDOC ---
History of Present Illness - General Chief Complaint: Pain Stated Complaint: FALL;WEAKNESS - History of Present Illness Initial Comments: Mariana Hobbs is a 67yo woman with a PMH of alcohol abuse, a-fib, recently seen twice yesterday following a fall. She presents today complaining of dehydration and sore throat since yesterday. Ms Hobbs states that she normally drinks at least 1 pint of vodka daily but has not had anything to drink since her fall 3-4 days ago. She denies any shaking or tremors, hallucinations, or vomiting but does report nausea. She says that she hasn't been able to eat anything in several days. She was able to drink 3 bottles of water yesterday. She is not able to explain why she feels that she is dehydrated. Ms Hobbs also states that she has multiple bruises following her recent fall, and she has had a lot of pain. She has been taking tylenol for pain without any significant improvement. She requests something for pain. Past History - Past Medical History Allergies/Adverse Reactions: Allergies Allergy/AdvReac Type Severity Reaction Status Date / Time No Known Allergies Allergy Verified 02/04/18 06:19 Home Medications: Ambulatory Orders Lorazepam 10 mg PO TID 02/02/18 Metoprolol Succinate 100 mg PO BID 02/02/18 Zolpidem Tartrate 10 mg PO HS 02/02/18 Anemia: No Asthma: No Cancer: No Cardiac Disorders: Yes (A-fib) CVA: No COPD: No CHF: No DVT: No Dementia: No Diabetes: Yes Dialysis: No GI Disorders: Yes (IBS, ulcerative colitis) Disorders: No HTN: Yes Hypercholesterolemia: Yes Kidney Stones: No Liver Disease: No Psychiatric Problems: No Seizures: No Thyroid Disease: No Lung CA: No - Surgical History Abdominal Surgery: No Appendectomy: No Cardiac Surgery: No Cholecystectomy: No Lung Surgery: No Neurologic Surgery: No Orthopedic Surgery: No - Immunization History Immunization Up to Date: Yes - Suicide/Smoking/Psychosocial Hx Smoking Status: Yes Smoking History: Never smoked Have you smoked in the past 12 months: No Number of Cigarettes Smoked Daily: 0 If you are a former smoker, when did you quit?: 40 YEARS Information on smoking cessation initiated: No Hx Alcohol Use: Yes (daily vodka) Drug/Substance Use Hx: No Substance Use Type: Alcohol Hx Substance Use Treatment: No Review of Systems - Review of Systems Comments:: General: No fevers, no chills. +Poor appetite HEENT: No changes in vision, no changes in hearing, no congestion. +Sore throat CV: No chest pain, no palpitations, no LE edema Pulm: No SOB, no cough, no wheezing GI: +Nausea. No vomiting, no change in bowel habits, no melena : No frequency, no urgency, no dysuria Musc: +recent fall, see HPI and recent notes Skin: No rash, no lesions, no erythema Endo: No excessive thirst, no heat/cold intolerance Heme: +Bruising Neuro: No syncope, no numbness/tingling, no focal weakness Vasc: No claudication Psych: +alcohol abuse *Physical Exam - Vital Signs Last Vital Signs Temp Pulse Resp BP Pulse Ox 98.4 F 77 20 141/106 96 02/04/18 06:20 02/04/18 06:20 02/04/18 06:20 02/04/18 06:20 02/04/18 06:20 - Physical Exam Comments: General: Comfortable, no acute distress HEENT: PERRL, EOMI, MMM, voice normal, normal neck ROM, no tonsillar erythema or exudate Pulm: Comfortable on room air Abd: Soft, nontender, nondistended Ext: No LE edema. ROM intact. Strength 5/5 and equal bilaterally Skin: Multiple bruises on face and extremities consistent with recent fall. No lacerations, no rash Vasc: Extremities WWP. Neuro: A&Ox3, CN grossly intact, normal speech, motor/sensory grossly intact and symmetric Psych: Mood appropriate to situation Medical Decision Making - Medical Decision Making 02/04/18 06:38 Mariana Hobbs is a 67yo woman with a history of alcohol abuse, recent fall, a- fib who presents complaining of sore throat and dehydration. - No sign of dehydration on exam, reports drinking at least 48oz water yesterday - 1L IVF, zofran, ibuprofen for possible dehhydration, nausea, pain - Recommended detox. Ms Hobbs currently declines - No tremors, fasciculation, vomiting that suggest withdrawal - Plan to discharge home after fluids completed. Will suggest detox again prior to discharge. Patient endorsed to Dr Leong. Discussed with Dr Beard. *DC/Admit/Observation/Transfer Diagnosis at time of Disposition: Sore throat, Nausea - Referrals Referrals: Shan Nino MD [Primary Care Provider] - - Patient Instructions Printed Discharge Instructions: DI for Drug or Alcohol Withdrawal Additional Instructions: Discharge Instructions: - You were seen in the ED for feelings of dehydration, nausea, and pain. You were given IV fluids and medications for nausea and pain - Recommend going to rehab/detox to help you quit drinking - Try to stay hydrated even if you are not hungry. A bland diet may help you eat more - Seek medical care if you have persistent vomiting that stops you from eating or drinking, you have hallucinations, or you start to have shakes/tremors from not drinking - Post Discharge Activity
--- NOTE | 2018-02-04 07:04 | PDOC ---
*Physical Exam - Vital Signs Last Vital Signs Temp Pulse Resp BP Pulse Ox 98.4 F 77 20 141/106 96 02/04/18 06:20 02/04/18 06:20 02/04/18 06:20 02/04/18 06:20 02/04/18 06:20 - Physical Exam Comments: 02/04/18 06:59 Care endorsed to me me by Dr. Garces at the end of her shift. Patient is a 67 YOF with h/o EtOH use disorder and A-fib, who p/w nausea, decreased PO intake, and multiple bruises and bodily pain from a recent fall, for which she was evaluated here in the ED about a day and a half ago. She has a h/o eloping from our ED. Also notes that she feels dehydrated, requested IVF and pain medication (Tylenol at home did not provide her relief). Does not want detox. Pending remainder of IVF, reassessment, then likely home dispo. General Appearance: Yes: Appropriately Dressed, Other (awake, alert, oriented, clear speech without slurring, answering questions appropriately). No: Apparent Distress HEENT: positive: EOMI, CHANTEL, TMs Normal, Other (bitemporal contusions, right superiomedial periorbital ecchymosis, no cephalohematoma, no scalp laceration, no raccoon eyes, no johnson sign, no hemotympanum, no CSF rhinorrhea/otorrhea) Integumentary: positive: Other (scattered anterior chest wall and BUE old ecchymoses) ED Treatment Course - Medications Given in the ED: ED Medications Discontinued Medications Generic Name Dose Route Start Last Admin Trade Name Maicol PRN Reason Stop Dose Admin Ibuprofen 600 mg 02/04/18 06:29 02/04/18 06:49 Motrin - PO 02/04/18 06:30 600 mg ONCE ONE Administration Ondansetron HCl 4 mg 02/04/18 06:29 02/04/18 06:50 Zofran Odt - SL 02/04/18 06:30 4 mg ONCE ONE Administration Sodium Chloride 1,000 ml 02/04/18 06:29 02/04/18 06:49 Normal Saline - IV 02/04/18 06:30 1,000 ml ONCE ONE Administration Medical Decision Making - Medical Decision Making Vital Signs Temperature 98.4 F 02/04/18 06:20 Pulse Rate 70 02/04/18 07:32 Respiratory Rate 18 02/04/18 07:32 Blood Pressure 142/122 02/04/18 07:32 O2 Sat by Pulse Oximetry (%) 99 02/04/18 07:32 02/04/18 07:56 Placed order for facial bone CT as patient has right superiomedial periorbital ecchymosis, bitemporal ecchymosis. Otherwise no signs of facial trauma. Repeat blood pressure after patient has taken her AM medications: 126/96. Re-assessment: patient states feeling improved, ate a small amount from breakfast tray. She will call Dr. Nino's office in the morning tomorrow and make an appointment. 02/04/18 08:37 The Pt has gotten significant relief of symptoms with ED medications. Workup is not concerning for emergency-level pathology at this time. The Pt is appropriate for discharge with close outpatient follow up. They are comfortable with this plan and will follow up with their PCP in 1-3 days. She will follow up with detox when she is ready, and resources given in discharge info. Specific return precautions are discussed and they will come back to the ER if necessary. She is steady on her feet and ambulates out of the department after discharge. *DC/Admit/Observation/Transfer Diagnosis at time of Disposition: Sore throat, Nausea, Dehydration Alcohol dependence Qualifiers: Substance use status: unspecified alcohol-induced disorder Qualified Code(s): F10.29 - Alcohol dependence with unspecified alcohol-induced disorder - Discharge Dispostion Disposition: HOME Condition at time of disposition: Stable Decision to Admit order: No - Referrals Referrals: Shan Nino MD [Primary Care Provider] - - Patient Instructions Printed Discharge Instructions: DI for Drug or Alcohol Withdrawal Additional Instructions: Discharge Instructions: - You were seen in the ED for feelings of dehydration, nausea, and pain. You were given IV fluids and medications for nausea and pain - Recommend going to rehab/detox to help you quit drinking - Try to stay hydrated even if you are not hungry. A bland diet may help you eat more - Seek medical care if you have persistent vomiting that stops you from eating or drinking, you have hallucinations, or you start to have shakes/tremors from not drinking Here are some other detox facilities (other than [facility]): [facility] [address] [address] 24 Hour Facility [phone] Directions Located on the corner of [address] [employer] Stops Subway Train Lines A, C, B, D, [address] [facility] N, R, Q at [facility] [address] Bus Lines M57, M31, M11 [facility] [address] [address] Hours of Operation 9 a.m. - 8 p.m. [facility] is a [facility] Re[facility] in [place], [place] Address: [address] [place] [address], [address] Intake Line: [phone] Website: [email or web address] Primary Focus: Substance Abuse Rehab Services Treatment Type: Hospital inpatient, Hospital inpatient detoxification, General Hospital(including [place] [facility]) Treatment Approaches: No information available, please contact the facility directly. [facility] located in [place], [place]. Address: [address] [place] [address] , [id number] - Post Discharge Activity
--- NOTE | 2018-02-04 07:06 | PDOC ---
Attending Attestation - Resident Resident Name: Aura Garces - ED Attending Attestation I have performed the following: I have examined & evaluated the patient, The case was reviewed & discussed with the resident, I agree w/resident's findings & plan - HPI HPI: 02/04/18 06:59 Pt comes with ETOH abuse; nauseous and body pains from prior falls. She is refusing detox. She has not had a drink in the past 2 days. No shakes at this time. - Physicial Exam PE: 02/04/18 07:06 Agree with resident exam. - Medical Decision Making 02/04/18 07:07 Pt awaiting hydration and reevaluation. 02/04/18 07:21 Signed out to the day team.
[2018-02-04 07:33] VITALS: PULSE 70
[2018-02-04 09:03] VITALS: BP 126/96
== END 2018-02-04 09:16 | disposition home or self-care (01) ==
LOC: JER 05:48
DX: R11.0 Nausea (principal); R07.0 Pain in throat; E86.0 Dehydration; F10.20 Alcohol dependence, uncomplicated
CPT/HCPCS: 70486-TC; 99283-25; Q0162

== ENCOUNTER 2018-07-16 18:53 | Emergency (ER) | payer OTHER ==
[2018-07-16 19:05] VITALS: BP 163/133; PULSE 73; TEMP 97.8; BMI 27.1
--- NOTE | 2018-07-16 19:05 | PDOC ---
Rapid Medical Evaluation Time Seen by Provider: 07/16/18 19:00 Medical Evaluation: Allergies Allergy/AdvReac Type Severity Reaction Status Date / Time No Known Allergies Allergy Verified 02/04/18 06:19 07/16/18 19:00 Pt presents to the ED for nausea and hypertension since this morning. Pt states she restarted her Otezla and started with the nausea and vomiting. Pt took 8mg of Zofran at 2/3pm Exam: Abdominal tenderness with no focal findings Orders: Labs, IV insert Pt to proceed to the ED for further evaluation Discharge Disposition - Diagnosis Nausea - Referrals - Patient Instructions - Post Discharge Activity
--- NOTE | 2018-07-16 19:46 | PDOC ---
Attending Attestation - HPI HPI: 07/16/18 20:06 The patient is a 67 year old female, with a significant past medical history of HTN, HLD, Afib, and alcohol abuse, who presents to the emergency department with , nausea, vomiting, abdominal pain, and chills. Patient endorses taking 2 Zofran pills, without relief. She denies recent headache or dizziness. She denies recent diarrhea or constipation. She denies recent dysuria, frequency, urgency or hematuria. She denies recent chest pain or shortness of breath. Allergies: NKDA Primary Care Physician: Dr. Nino - Physicial Exam PE: 07/16/18 20:06 Agree with resident exam. <Chris Velez - Last Filed: 07/16/18 20:05> - Resident Resident Name: Ricardo Ann - ED Attending Attestation I have performed the following: I have examined & evaluated the patient, The case was reviewed & discussed with the resident, I agree w/resident's findings & plan - Medical Decision Making 07/16/18 23:25 67-year-old female with abdominal pain and nausea CT scan of the abdomen and pelvis shows no acute abnormality Patient received morphine 4 mg as well as IV fluid normal saline 1 L She has had no actual vomiting in the emergency department She will be discharged home to follow up with primary care physician with instructions to return if worse <May Leal - Last Filed: 07/16/18 23:27> Attestations - Attestations 07/16/18 20:06 Documentation prepared by Chris Velez, acting as medical biller for May eLal DO. <Chris Velez - Last Filed: 07/16/18 20:05>
[2018-07-16] MEDS ORDERED: METOCLOPRAMIDE HCL INJECTION 10 MG/2 ML VIAL IVPB ONE (19:50)
[2018-07-16] MEDS ORDERED: FAMOTIDINE 20 MG/50 ML IVPB 20 MG/50 ML MG IVPB ONE ×4 (19:51→22:38)
[2018-07-16] MEDS ORDERED: SODIUM CHLORIDE 0.9% 1000 ML INFUS.BAG IV ONE (19:51)
--- NOTE | 2018-07-16 20:00 | PDOC ---
History of Present Illness - General Chief Complaint: Nausea/Vomiting Stated Complaint: nausea/hypertension Time Seen by Provider: 07/16/18 19:00 History Source: Patient Exam Limitations: No Limitations - History of Present Illness Initial Comments: 07/16/18 19:54 The patient is a 67F with a PMH of afib, alcohol abuse (drinks pint of vodka per day), htn who presents to the ER with complaints of sudden onset nausea and abdominal pain. The patient states that she developed sudden onset nausea with diffuse abdominal pain today around noon. She has not been able to tolerate PO and has not been able to vomit all day. She admits to chills but denies CP, SOB , fever, numbness, tingling, and weakness. Past History - Past Medical History Allergies/Adverse Reactions: Allergies Allergy/AdvReac Type Severity Reaction Status Date / Time No Known Allergies Allergy Verified 07/16/18 19:00 Home Medications: Ambulatory Orders Lorazepam 10 mg PO TID 02/02/18 Metoprolol Succinate 100 mg PO BID 02/02/18 Zolpidem Tartrate 10 mg PO HS 02/02/18 Anemia: No Asthma: No Cancer: No Cardiac Disorders: Yes (A-fib) CVA: No COPD: No CHF: No DVT: No Dementia: No Diabetes: Yes Dialysis: No GI Disorders: Yes (IBS, ulcerative colitis) Disorders: No HTN: Yes Hypercholesterolemia: Yes Kidney Stones: No Liver Disease: No Psychiatric Problems: No Seizures: No Thyroid Disease: No Lung CA: No - Surgical History Abdominal Surgery: No Appendectomy: No Cardiac Surgery: No Cholecystectomy: No Lung Surgery: No Neurologic Surgery: No Orthopedic Surgery: No - Immunization History Immunization Up to Date: Yes - Suicide/Smoking/Psychosocial Hx Smoking Status: Yes Smoking History: Former smoker Have you smoked in the past 12 months: No Number of Cigarettes Smoked Daily: 0 If you are a former smoker, when did you quit?: 40 YEARS Information on smoking cessation initiated: No Hx Alcohol Use: Yes (daily vodka) Drug/Substance Use Hx: No Substance Use Type: Alcohol Hx Substance Use Treatment: No Review of Systems - Review of Systems Able to Perform ROS?: Yes Comments:: 07/16/18 19:58 GENERAL/CONSTITUTIONAL: Positive for chills. No fever. No weakness. HEAD, EYES, EARS, NOSE AND THROAT: No change in vision. No ear pain or discharge. No sore throat. CARDIOVASCULAR: No chest pain, palpitations, or lightheadedness. RESPIRATORY: No cough, wheezing, shortness of breath, or hemoptysis. GASTROINTESTINAL: Positive for nausea and abdominal pain. No vomiting, diarrhea , or constipation. GENITOURINARY: No dysuria, frequency, hematuria, or change in urination. MUSCULOSKELETAL: No joint or muscle swelling or pain. No neck or back pain. SKIN: No rash or lesions. NEUROLOGIC: No headache, numbness, tingling, focal weakness, loss of consciousness, or change in strength/sensation. Is the patient limited Cook Islander proficient: No *Physical Exam - Vital Signs Last Vital Signs Temp Pulse Resp BP Pulse Ox 97.8 F 73 19 163/133 H 98 07/16/18 19:00 07/16/18 19:00 07/16/18 19:00 07/16/18 19:00 07/16/18 19:00 - Physical Exam Comments: 07/16/18 19:58 GENERAL: Well developed, well nourished. Awake and alert. No acute distress. HEENT: Normocephalic, atraumatic. Hearing grossly normal. Moist mucous membranes. PERRLA, EOMI. No conjunctival pallor. NECK: Supple. Full ROM. No JVD. CARDIOVASCULAR: Regular rate and rhythm. No murmurs, rubs, or gallops. PULMONARY: No evidence of respiratory distress. Lungs clear to auscultation bilaterally. No wheezing, rales or rhonchi. ABDOMINAL: Soft. TTP in epigastrium. Non-distended. No rebound or guarding. GENITOURINARY: No CVA tenderness bilaterally. MUSCULOSKELETAL: Normal range of motion at all joints. No bony deformities or tenderness. EXTREMITIES: No cyanosis. No clubbing. No edema. No calf tenderness or swelling. SKIN: Warm and dry. Normal capillary refill. No rashes. No jaundice. NEUROLOGICAL: Alert, awake, appropriate. Cranial nerves 2-12 grossly intact. Normal speech. Gait is normal without ataxia. PSYCHIATRIC: Cooperative. Good eye contact. Appropriate mood and affect. Moderate Sedation - Procedure Monitoring Vital Signs: Procedure Monitoring Vital Signs Temperature 97.8 F 07/16/18 19:00 Pulse Rate 73 07/16/18 19:00 Respiratory Rate 19 07/16/18 19:00 Blood Pressure 163/133 H 07/16/18 19:00 O2 Sat by Pulse Oximetry (%) 98 07/16/18 19:00 ED Treatment Course - LABORATORY CBC & Chemistry Diagram: 07/16/18 20:33 07/16/18 20:33 Medical Decision Making - Medical Decision Making 07/16/18 19:59 The patient is a 67F with a PMH of a-fib, HTN, EtOH abuse who presents to the ER with sudden onset nausea and abdominal pain concerning for pancreatitis, cholecystitis, PUD, gastritis. Pending labs and imaging. 07/16/18 22:00 CBC, CMP WNL. USS unequivocal. Will order CTAP w/o contrast as pt has Cr of 1.5. UA negative. Pt getting fluids and pepcid. 07/16/18 23:14 Pt has not vomited in ED. CTAP negative. Pending trop. 07/17/18 00:02 Trop negative. EKG shows a-fib with RVR. Giving pt's night dose of metoprolol. Will d/c home after meds. *DC/Admit/Observation/Transfer Diagnosis at time of Disposition: Nausea - Discharge Dispostion Disposition: HOME Condition at time of disposition: Stable Decision to Admit order: No - Referrals Referrals: Shan Nino MD [Primary Care Provider] - - Patient Instructions Printed Discharge Instructions: Alcohol Use Disorder Additional Instructions: Please follow up with your primary care physician in 2-3 days. Please return to the ER if you have any signs or symptoms of chest pain, shortness of breath, uncontrollable fever, chills, nausea, vomiting, numbness, tingling, or weakness in any part of your body, changes in vision, or slurred speech. Please take your medications as prescribed. Please return to the ER if symptoms persist, worsen, or new symptoms arise. - Post Discharge Activity
[2018-07-16] MEDS ORDERED: METOCLOPRAMIDE HCL INJECTION 10 MG/2 ML VIAL ONE (20:25)
[2018-07-16 20:44] LABS: BASO % 0.6 % (0-2.0); EOS % 0.5 % (0-4.5); HEMATOCRIT 42.8 % (32.4-45.2); HEMOGLOBIN 14.4 GM/dL (10.7-15.3); LYMPH % 10.4 % (8-40); MCH 28.9 pg (25.7-33.7); MCHC 33.7 g/dl (32.0-36.0); MEAN CELL VOLUME 85.7 fl (80-96); MEAN PLT VOLUME 11.7 fl (7.5-11.1); MONO % 1.9 % (3.8-10.2); NEUT % 86.6 % (42.8-82.8); PLATELET COUNT 181 K/MM3 (134-434); RBC 4.99 M/mm3 (3.60-5.2); RDW 15.2 % (11.6-15.6); WHITE BLOOD COUNT 8.2 K/mm3 (4.0-10.0)
[2018-07-16 20:47] LABS: URINE APPEARANCE CLEAR; URINE BILIRUBIN NEGATIVE (<2.0 mg/dL); URINE COLOR STRAW; URINE GLUCOSE (UA) 1+ (NEGATIVE); URINE KETONE TRACE (NEGATIVE); URINE LEUK ESTERASE NEGATIVE (NEGATIVE); URINE NITRITE NEGATIVE (NEGATIVE); URINE PROTEIN 1+ (NEGATIVE); URINE UROBILINOGEN NEGATIVE mg/dL (0.2-1.0)
[2018-07-16 20:50] LABS: EPI CELLS FEW /HPF (FEW); URINE BACTERIA RARE /hpf (NONE SEEN)
[2018-07-16 21:32] LABS: ALBUMIN 4.5 g/dl (3.4-5.0); ALK PHOS 97 U/L (45-117); ANION GAP 12 MMOL/L (8-16); BILIRUBIN,TOTAL 1.2 mg/dL (0.2-1); BLOOD UREA NITROGEN 24 mg/dL (7-18); CALCIUM 10.7 mg/dL (8.5-10.1); CHLORIDE 104 mmol/L (98-107); CO2 20 mmol/L (21-32); CREATININE 1.5 mg/dL (0.55-1.3); GLUCOSE,RANDOM 185 mg/dL (74-106); LIPASE 109 U/L (73-393); SGOT/AST 36 U/L (15-37); SGPT/ALT 37 U/L (13-61); SODIUM 136 mmol/L (136-145); TOT PROT 8.7 g/dl (6.4-8.2)
[2018-07-16] MEDS ORDERED: morphine CARPU-JECT 4 MG/1 ML DISP.SYRIN IVPUSH ONE (22:23)
[2018-07-16] MEDS ORDERED: morphine SULFATE 4 MG/ML VIAL ONE (22:38)
[2018-07-16] MEDS ORDERED: METOPROLOL TARTRATE 50 MG TABLET (FP) PO ONE (23:58)
[2018-07-17] MEDS ORDERED: chlordiazePOXIDE HCL 25 MG CAPSULE PO ONE (00:01)
[2018-07-17] MEDS ORDERED: chlordiazePOXIDE HCL 25 MG CAPSULE ONE (00:03)
[2018-07-17] MEDS ORDERED: METOPROLOL TARTRATE 50 MG TABLET (FP) ONE (00:04)
--- NOTE | 2018-07-17 09:52 | EKG ---
Test Reason : Blood Pressure : / mmHG Vent. Rate : 119 BPM Atrial Rate : 136 BPM P-R Int : 000 ms QRS Dur : 088 ms QT Int : 330 ms P-R-T Axes : 000 107 100 degrees QTc Int : 464 ms ATRIAL FIBRILLATION WITH RAPID VENTRICULAR RESPONSE RIGHTWARD AXIS NONSPECIFIC ST AND T WAVE ABNORMALITY ABNORMAL ECG WHEN COMPARED WITH ECG OF 15-NOV-2017 11:39, VENT. RATE HAS INCREASED BY [address] NO LONGER DEPRESSED IN INFERIOR LEADS T WAVE INVERSION NO LONGER EVIDENT IN INFERIOR LEADS T WAVE INVERSION NO LONGER EVIDENT IN ANTEROLATERAL LEADS Confirmed by RENEA NÑUEZ, LUTHER ([id number]) on 07/17/2018 9:51:51 AM Referred By: Confirmed By:LUTHER MEIER MD
== END 2018-07-17 00:16 | disposition home or self-care (01) ==
LOC: JER 18:53
PROC: 3E033GC Introduction of Other Therapeutic Substance into Peripheral Vein, Percutaneous Approach (ICD-10-PCS; principal; 2018-07-16)
PROC: 3E033GC Introduction of Other Therapeutic Substance into Peripheral Vein, Percutaneous Approach (ICD-10-PCS; 2018-07-16)
PROC: 3E033GC Introduction of Other Therapeutic Substance into Peripheral Vein, Percutaneous Approach (ICD-10-PCS; 2018-07-16)
PROC: 3E033NZ Introduction of Analgesics, Hypnotics, Sedatives into Peripheral Vein, Percutaneous Approach (ICD-10-PCS; 2018-07-16)
DX: R11.0 Nausea (principal); I10 Essential (primary) hypertension; E11.9 Type 2 diabetes mellitus without complications; I48.91 Unspecified atrial fibrillation; F10.10 Alcohol abuse, uncomplicated; Z87.19 Personal history of other diseases of the digestive system
CPT/HCPCS: 36415; 74176-TC; 76705-TC; 80053; 80307; 81003; 81015; 82550; 82553; 83690; 84484; 85025; 87086; 93005; 93010; 96365; 96366; 96375; 99282-25; J7030

== ENCOUNTER 2018-10-16 14:07 | Observation (INO) | payer OTHER | END 2018-10-17 14:15 | disposition home or self-care (01) | LOC: JER 14:07 → JERBED 18:56 → J4S 21:32 ==

== ENCOUNTER 2018-10-31 13:57 | Emergency (ER) | payer OTHER | END 2018-10-31 17:42 | disposition left against medical advice (07) | LOC: JER 13:57 ==

== ENCOUNTER 2018-10-31 21:17 | Emergency (ER) | payer OTHER | END 2018-11-01 06:08 | disposition home or self-care (01) | LOC: JER 11-01 06:08 | PROC: 3E0337Z Introduction of Electrolytic and Water Balance Substance into Peripheral Vein, Percutaneous Approach (ICD-10-PCS; principal; 2018-10-31) | PROC: 3E033GC Introduction of Other Therapeutic Substance into Peripheral Vein, Percutaneous Approach (ICD-10-PCS; 2018-10-31) | DX: I48.2 Chronic atrial fibrillation (principal); Z79.82 Long term (current) use of aspirin; I10 Essential (primary) hypertension; E78.5 Hyperlipidemia, unspecified; F32.9 Major depressive disorder, single episode, unspecified; F10.10 Alcohol abuse, uncomplicated; E78.00 Pure hypercholesterolemia, unspecified; Z87.19 Personal history of other diseases of the digestive system ==

== ENCOUNTER 2018-11-02 16:45 | Emergency (ER) | payer OTHER ==
--- NOTE | 2018-11-02 17:02 | PDOC ---
History of Present Illness - History of Present Illness Initial Comments: 68yo F with PMH of Afib on ASA and metoprolol, HTN, HLD, ETOH abuse, Depression presenting with complaints of "I can't eat, I can't sleep, I couldn't get out of bed so I called the ambulance." Patient is grieving for her son who about two weeks ago. When asked if she can adequately take care of herself, she states, "no," but is unwilling to enter an inpatient facility as she is preparing for her son's memorial service. Admits to drinking 1-2 oz of vodka and taking 1 tablet of aprazolam (which is prescribed by her primary care physician) this morning. Reports that in addition to her sleep and appetite problems, she also has lost interest in activities that she used to enjoy, she has low energy, and poor concentration. Endorses nausea, but no vomiting. Denies falling. No fevers, chills, chest pain, or shortness of breath. Denies suicidal ideation or homicidal ideation. PCP: Dr. Nino <Irene Agudelo - Last Filed: 11/02/18 20:05> <Cleveland Stacy - Last Filed: 11/03/18 02:07> - General Chief Complaint: Alcohol intoxication Stated Complaint: Alcohol intoxication Time Seen by Provider: 11/02/18 17:02 Past History - Past Medical History Anemia: No Asthma: No Cancer: No Cardiac Disorders: Yes (A-fib) CVA: No COPD: No CHF: No DVT: No Dementia: No Diabetes: Yes Dialysis: No GI Disorders: Yes (IBS, ulcerative colitis) Disorders: No HTN: Yes Hypercholesterolemia: Yes Kidney Stones: No Liver Disease: No Psychiatric Problems: Yes (depression, insomnia) Seizures: No Thyroid Disease: No Lung CA: No - Surgical History Abdominal Surgery: No Appendectomy: No Cardiac Surgery: No Cholecystectomy: No Lung Surgery: No Neurologic Surgery: No Orthopedic Surgery: No - Immunization History Immunization Up to Date: Yes - Suicide/Smoking/Psychosocial Hx Smoking Status: Yes Smoking History: Never smoked Have you smoked in the past 12 months: No Number of Cigarettes Smoked Daily: 0 If you are a former smoker, when did you quit?: 40 YEARS Information on smoking cessation initiated: No Hx Alcohol Use: No Drug/Substance Use Hx: No Substance Use Type: Alcohol Hx Substance Use Treatment: No <Irene Agudelo - Last Filed: 11/02/18 20:05> <Cleveland Satcy - Last Filed: 11/03/18 02:07> - Past Medical History Allergies/Adverse Reactions: Allergies Allergy/AdvReac Type Severity Reaction Status Date / Time No Known Allergies Allergy Verified 10/31/18 13:59 Home Medications: Ambulatory Orders Metoprolol Succinate 100 mg PO BID 02/02/18 Lorazepam [Ativan] 1 mg PO HS 10/31/18 Pantoprazole Sodium [Protonix -] 40 mg PO DAILY 10/31/18 Rosuvastatin [Crestor -] 10 mg PO DAILY 10/31/18 Hydrocortisone 2.5% Topical Cr [Anusol 2.5% Hc Cream -] 1 applic RC DAILY #1 tube 11/02/18 Melatonin 10 mg PO DAILY #30 capsule 11/02/18 Review of Systems - Review of Systems Comments:: Constitutional: no fever, no chills HEENT: no throat pain, no dysphagia Cardiovascular: no chest pain, no palpitations Respiratory: no cough, no shortness of breath Gastrointestinal: no abdominal pain, +nausea Genitourinary: no dysuria, no frequency Musculoskeletal: no myalgia, no arthralgia Skin: no rash, no itching Neurologic: no headache, no weakness <JammieJennyIrene - Last Filed: 11/02/18 20:05> *Physical Exam - Vital Signs Last Vital Signs Temp Pulse Resp BP Pulse Ox 97.9 F 95 H 18 120/87 95 11/02/18 16:58 11/02/18 16:58 11/02/18 16:58 11/02/18 16:58 11/02/18 16:58 - Physical Exam Comments: General: Awake, alert, and fully oriented, tearful Head: No signs of trauma Eyes: EOMI, sclera anicteric ENT: Moist mucus membranes Neck: Normal ROM, supple Lungs: Lungs clear, Normal breath sounds Cardio: Irregular rhythm, S1 and S2 present Abdomen: Soft, nontender. No guarding, no rebound, no masses Extremities: Normal range of motion, Distal pulses present SKIN: Warm, Dry, normal turgor Neurologic: Cranial nerves II through XII grossly intact. Slurred speech <Irene Agudelo - Last Filed: 11/02/18 20:05> - Vital Signs Last Vital Signs Temp Pulse Resp BP Pulse Ox 98.0 F 74 17 122/68 98 11/02/18 21:09 11/02/18 21:09 11/02/18 21:09 11/02/18 21:09 11/02/18 21:09 <Cleveland Stacy - Last Filed: 11/03/18 02:07> ED Treatment Course - ADDITIONAL ORDERS Additional order review: Laboratory Results 11/02/18 17:15 POC Glucometer 112 11/02/18 17:15 POC Glucometer 112 - Medications Given in the ED: ED Medications Discontinued Medications Generic Name Dose Route Start Last Admin Trade Name Freq PRN Reason Stop Dose Admin Diphenhydramine HCl 50 mg 11/02/18 20:35 11/02/18 21:08 Benadryl - PO 11/02/18 20:36 Not Given ONCE ONE Hydrocortisone 1 applic 11/02/18 20:45 11/02/18 21:08 Anusol 2.5% Hc Cream - TP 1 applic ONCE LESLY Administration Folic Acid 1 mg/ Thiamine HCl 1,000 mls @ 125 mls/hr 11/02/18 17:47 11/02/18 18:08 100 mg/ Multivitamins/Minerals IVPB 11/03/18 01:46 125 mls/hr 10 ml/ Sodium Chloride ONCE ONE Administration Ondansetron HCl 4 mg 11/02/18 17:47 11/02/18 18:16 Zofran Injection IVPUSH 11/02/18 17:48 4 mg ONCE ONE Administration <Cleveland Stacy - Last Filed: 11/03/18 02:07> Medical Decision Making - Medical Decision Making 68yo F with PMH of Afib on ASA and metoprolol, HTN, HLD, ETOH abuse, Depression presenting with complaints of "I can't eat, I can't sleep, I couldn't get out of bed so I called the ambulance." Plan for banana bag 4mg zofran Patient is oriented and answering questions appropriately. Awaiting clinical sobriety Requested food tray which seems incongruent with her endorsing inability to eat 11/02/18 18:20 EKG: rate 94, QTc 472, Afib Patient states her nausea has improved but is still present ("a little") She finished most of the food on her tray. Resting comfortably in stretcher 11/02/18 18:50 Patient signed out to Dr. Shell 11/02/18 19:02 <Irene Agudelo - Last Filed: 11/02/18 20:05> *DC/Admit/Observation/Transfer <Irene Agudelo - Last Filed: 11/02/18 20:05> <Cleveland Stacy - Last Filed: 11/03/18 02:07> Diagnosis at time of Disposition: Alcohol intoxication - Discharge Dispostion Disposition: HOME Condition at time of disposition: Fair - Prescriptions Prescriptions: Hydrocortisone 2.5% Topical Cr [Anusol 2.5% Hc Cream -] 1 applic RC DAILY #1 tube Melatonin 10 mg PO DAILY #30 capsule - Patient Instructions Printed Discharge Instructions: DI for Alcohol Abuse Additional Instructions: You were seen in the Emergency Department for alcohol intoxication and complaints of inability to eat or sleep. In the ED you ate and were able to sleep comfortably. You are clinically sober to return home. Follow up with your Primary Care Physician Dr. Nino within 1 week. Please return to the ED if you experience nausea, vomiting, fevers, chest pain, shortness of breath or loss of consciousness.
[2018-11-02 17:04] VITALS: BMI 25.7
[2018-11-02] MEDS ORDERED: FOLIC ACID INJECTION - 1 MG, THIAMINE HCL 100 MG, MULTIVIT INJECTION ADULT 10 ML in SOD... IVPB ONE (17:47)
[2018-11-02] MEDS ORDERED: ONDANSETRON 4 MG/2 ML VIAL IVPUSH ONE (17:47)
[2018-11-02] MEDS ORDERED: ONDANSETRON 4 MG/2 ML VIAL ONE (18:14)
--- NOTE | 2018-11-02 19:23 | PDOC ---
Documentation entered by Odilia Muhammad SCRIBE, acting as scribe for Cleveland Stacy MD. Cleveland Stacy MD: This documentation has been prepared by the chauibe, Odilia Muhammad SCRIBE, under my direction and personally reviewed by me in its entirety. I confirm that the documentation accurately reflects all work, treatment, procedures, and medical decision making performed by me. Attending Attestation - Resident Resident Name: Irene Agudelo - [facility] HPI: 11/02/18 18:01 The patient is a 68 year old female with a significant past medical history of afib( on ASA),hypertension, hyperlipidemia, depression and alcohol abuse who presents to the emergency department with alcohol intoxication since earlier today. The patient states that she has been recently been unable to eat and sleep secondary to her son's . She states that this morning she was unable to get out of bed so she called EMS. The patient endorses drinking about 2oz of vodka today. She reports some associated nausea without vomiting. She denies any SI or HIs. The patient denies any fever, chills, diarrhea, constipation or urinary symptoms. She denies any chest pain or shortness of breath. The patient denies any other complaints. - Physicial Exam PE: 11/02/18 19:20 Patient is awake and alert, alcohol on breath, tearful; patient is afebrile. Vital signs are noted Normocephalic and atraumatic PERRLA, EOMI, no nystagmus CTA Irregularly irregular Abdomen soft, nontender, nondistended No focal neurological deficits - Medical Decision Making 11/02/18 19:21 Patient is 68-year-old female with history of atrial fibrillation, depression, alcohol abuse, who is been seen in this ED on numerous occasions for acute alcohol intoxication after a recent passing of her son. Patient been cleared by psychiatry previously. In the ED, patient is awake and alert, tearful, without suicidal homicidal ideations. On initial evaluation slurred speech and ataxia noted. We'll administer multivitamins, folic acid and thiamine. Will observe for clinical sobriety. Will reassess. Likely discharge.
--- NOTE | 2018-11-02 19:28 | PDOC ---
*Physical Exam - Vital Signs Last Vital Signs Temp Pulse Resp BP Pulse Ox 97.9 F 81 16 116/63 97 11/02/18 16:58 11/02/18 19:15 11/02/18 19:15 11/02/18 19:15 11/02/18 19:15 - Physical Exam Comments: 11/02/18 19:28 Patient signed out by resident Dr. Agudelo. In short patient is well known to the ED due to recent history of of her son, who presents with alcohol intoxication, complaints of inability to eat, sleep or get out of bed. During her ED stay she has been eating and sleeping. No SI, HI, auditory or visual hallucinations Plan to [facility] and send home ED Course: ED Treatment Course - ADDITIONAL ORDERS Additional order review: Laboratory Results 11/02/18 17:15 POC Glucometer 112 11/02/18 17:15 POC Glucometer 112 - Medications Given in the ED: ED Medications Discontinued Medications Generic Name Dose Route Start Last Admin Trade Name Maicol PRN Reason Stop Dose Admin Ondansetron HCl 4 mg 11/02/18 17:47 11/02/18 18:16 Zofran Injection IVPUSH 11/02/18 17:48 4 mg ONCE ONE Administration Medical Decision Making - Medical Decision Making 11/02/18 20:50 patient clinically sober able to ambulate without difficulty. *DC/Admit/Observation/Transfer Diagnosis at time of Disposition: Alcohol intoxication - Discharge Dispostion Disposition: HOME Condition at time of disposition: Fair Decision to Admit order: No - Prescriptions Prescriptions: Hydrocortisone 2.5% Topical Cr [Anusol 2.5% Hc Cream -] 1 applic RC DAILY #1 tube Melatonin 10 mg PO DAILY #30 capsule - Referrals - Patient Instructions Printed Discharge Instructions: DI for Alcohol Abuse Additional Instructions: You were seen in the Emergency Department for alcohol intoxication and complaints of inability to eat or sleep. In the ED you ate and were able to sleep comfortably. You are clinically sober to return home. Follow up with your Primary Care Physician Dr. Nino within 1 week. Please return to the ED if you experience nausea, vomiting, fevers, chest pain, shortness of breath or loss of consciousness. - Post Discharge Activity
[2018-11-02] MEDS ORDERED: diphenhydrAMINE HCL 50 MG CAPSULE PO ONE (20:35)
[2018-11-02] MEDS ORDERED: HYDROCORTISONE 2.5% TOPICAL CREAM 30 GM TUBE TP SCH (20:45)
[2018-11-02 21:10] VITALS: BP 122/68; PULSE 74; TEMP 98
--- NOTE | 2018-11-03 12:48 | EKG ---
Test Reason : Blood Pressure : / mmHG Vent. Rate : 100 BPM Atrial Rate : 300 BPM P-R Int : 000 ms QRS Dur : 100 ms QT Int : 380 ms P-R-T Axes : 000 123 125 degrees QTc Int : 490 ms ATRIAL FIBRILLATION INCOMPLETE RIGHT BUNDLE BRANCH BLOCK LEFT POSTERIOR FASCICULAR BLOCK NONSPECIFIC ST AND T WAVE ABNORMALITY PROLONGED QT ABNORMAL ECG WHEN COMPARED WITH ECG OF 31-OCT-2018 21:25, NO SIGNIFICANT CHANGE WAS FOUND Confirmed by STEPHANIE GONSALEZ MD ([id number]) on 11/03/2018 12:48:10 PM Referred By: Confirmed By:STEPHANIE GONSALEZ MD
== END 2018-11-02 21:16 | disposition home or self-care (01) ==
LOC: JER 16:45
PROC: 3E033GC Introduction of Other Therapeutic Substance into Peripheral Vein, Percutaneous Approach (ICD-10-PCS; principal; 2018-11-02)
PROC: 3E033GC Introduction of Other Therapeutic Substance into Peripheral Vein, Percutaneous Approach (ICD-10-PCS; 2018-11-02)
DX: F10.120 Alcohol abuse with intoxication, uncomplicated (principal); I48.91 Unspecified atrial fibrillation; Z79.82 Long term (current) use of aspirin; I10 Essential (primary) hypertension; E78.5 Hyperlipidemia, unspecified; F32.9 Major depressive disorder, single episode, unspecified
CPT/HCPCS: 82962; 93005; 93010; 96365; 96366; 96375; 99284-25; J7030

== ENCOUNTER 2018-11-04 12:40 | Emergency (ER) | payer OTHER ==
[2018-11-04 12:48] VITALS: TEMP 98.7; BMI 27.4
--- NOTE | 2018-11-04 13:09 | PDOC ---
History of Present Illness - General Chief Complaint: Alcohol intoxication Stated Complaint: Injury Time Seen by Provider: 11/04/18 12:57 - History of Present Illness Initial Comments: 11/04/18 13:36 The patient is a 68 year old female with a PMH of Afib (on Aspirin, Metoprolol) , hypertension, hyperlipidemia, alcohol use disorder, depression who presents to our ED c/o fall. Patient states she was adjusting her air conditioner this morning when she fell forward hitting her face and head. Unsure of LOC or down time. States she called a cab to bring her to the hospital because she had a headache. Denies any pre fall chest pain, shortness of breath, lightheadedness , palpitations. Endorses drinking vodka this morning. The patient denies chest pain, shortness of breath, fevers/chills, nausea/ vomiting, diarrhea/constipation, dysuria/hematuria, recent travel or sick contacts. NKDA Surgical: none reported Social: daily ETOH As per EMR, patient evaluated multiple times since 02/2018 for falls associated with alcohol intoxication. Notes her impetus for drinking is her son's . No h/o transfer to detoxification. Upon re-exam patient states her son's is next week and she will consider detox after that time. Past History - Past Medical History Allergies/Adverse Reactions: Allergies Allergy/AdvReac Type Severity Reaction Status Date / Time No Known Allergies Allergy Verified 11/04/18 17:19 Home Medications: Ambulatory Orders Metoprolol Succinate 100 mg PO BID 02/02/18 Lorazepam [Ativan] 1 mg PO HS 10/31/18 Pantoprazole Sodium [Protonix -] 40 mg PO DAILY 10/31/18 Rosuvastatin [Crestor -] 10 mg PO DAILY 10/31/18 Hydrocortisone 2.5% Topical Cr [Anusol 2.5% Hc Cream -] 1 applic RC DAILY #1 tube 11/02/18 Melatonin 10 mg PO DAILY #30 capsule 11/02/18 Anemia: No Asthma: No Cancer: No Cardiac Disorders: Yes (A-fib) CVA: No COPD: No CHF: No DVT: No Dementia: No Diabetes: Yes Dialysis: No GI Disorders: Yes (IBS, ulcerative colitis) Disorders: No HTN: Yes Hypercholesterolemia: Yes Kidney Stones: No Liver Disease: No Psychiatric Problems: Yes (depression, insomnia) Seizures: No Thyroid Disease: No Lung CA: No - Surgical History Abdominal Surgery: No Appendectomy: No Cardiac Surgery: No Cholecystectomy: No Lung Surgery: No Neurologic Surgery: No Orthopedic Surgery: No - Immunization History Immunization Up to Date: Yes - Suicide/Smoking/Psychosocial Hx Smoking Status: Yes Smoking History: Never smoked Have you smoked in the past 12 months: No Number of Cigarettes Smoked Daily: 0 If you are a former smoker, when did you quit?: 40 YEARS Hx Alcohol Use: No Drug/Substance Use Hx: No Substance Use Type: Alcohol Hx Substance Use Treatment: No Review of Systems - Review of Systems Constitutional: No: Chills, Fever HEENTM: No: Recent change in vision Respiratory: No: Cough, Shortness of Breath Cardiac (ROS): No: Chest Pain, Lightheadedness, Palpitations, Syncope ABD/GI: No: Constipated, Diarrhea, Nausea, Vomiting *Physical Exam - Vital Signs Last Vital Signs Temp Pulse Resp BP Pulse Ox 98.7 F 72 18 112/74 97 11/04/18 12:44 11/04/18 12:44 11/04/18 12:44 11/04/18 12:44 11/04/18 12:44 - Physical Exam Comments: 11/04/18 13:44 Awake, alert, alcohol on breath HEENT: lower nasal abrasion, no periorbital ecchymosis, no mastoid ecchymosis CV: S1, S2, no M/R/G Abdomen: soft, non-tender, (+) bowel sounds Respiratory: CLTA B/L, no wheeze/crackle Neuro: A&O x3, CN II-XII intact ED Treatment Course - LABORATORY CBC & Chemistry Diagram: 11/04/18 13:54 11/04/18 13:54 Medical Decision Making - Medical Decision Making 11/04/18 13:38 68 year old female s/p fall. VS unremarkable. Alcohol on breath Will obtain Head CT, C-spine, Facial bone CT. Will also obtain CMP as patient has h/o mild GREGORIO on previous evaluations in 2018, 10/2018 - likely 2/2 to pre-renal azotemia 2/2 to decreased PO intake. C-spine precautions in place. Social Work consult for bereavement resources IV hydration, Morphine. Reassess. 11/04/18 14:[address], C-spine, CT facial bones negative 11/04/18 15:07 Labs unremarkable including Cr 1.3 - patient had mild GREGORIO on last visit CPK pending Patient awake, tolerating PO intake Will obtain CPK and then ambulate patient to evaluate for safety for d/c home; will also obtain UA to r/o any other fall etiology SW evaluated patient @ bedside - provided detox and bereavement resources 11/04/18 16:14 CPK 1266 will give additional 1 L NS Patient ambulatory UA pending 11/04/18 17:57 UA shows 3+ blood As per EMR, patient has h/o hematuria, Asx w/o urinary complaints, will refrain from antibiotics and quitline counselor to f/u with PMD for repeat UA UCx pending 11/04/18 18:45 Patient clinically stable, tolerating PO intake, ambulatory, improved. Will discharge home with return precautions, PMD referral. I discussed the physical exam findings, ancillary test results and final diagnoses with the patient. I answered all of the patient's questions. The patient was satisfied with the care received and felt comfortable with the discharge plan and treatment plan. The patient will return to the Emergency Department with any new, persistent or worsening symptoms. *DC/Admit/Observation/Transfer Diagnosis at time of Disposition: Hematuria - Discharge Dispostion Disposition: HOME Condition at time of disposition: Good Decision to Admit order: No - Referrals Referrals: Shan Nino MD [Primary Care Provider] - - Patient Instructions Printed Discharge Instructions: DI for Alcohol Abuse Additional Instructions: You were evaluated today for a fall. A cat scan of your head, neck and facial bones were all negative for concerning findings. Your urine showed some blood. You should follow-up with your primary care doctor, Dr. Nino, for further evaluation including a repeat test of your urine. Your care is not complete until your evaluated by Dr. Nino. At this time you are safe for discharge home. Return to the ED for any new/worsening/concerning symptoms. - Post Discharge Activity
[2018-11-04] MEDS ORDERED: morphine CARPU-JECT 4 MG/1 ML DISP.SYRIN IVPUSH ONE (13:25)
[2018-11-04] MEDS ORDERED: morphine SULFATE 4 MG/ML VIAL ONE (14:15)
[2018-11-04 14:23] LABS: BASO % 0.3 % (0-2.0); EOS % 0.2 % (0-4.5); HEMATOCRIT 38.5 % (32.4-45.2); HEMOGLOBIN 12.2 GM/dL (10.7-15.3); LYMPH % 17.8 % (8-40); MCHC 31.8 g/dl (32.0-36.0); MEAN CELL VOLUME 88.1 fl (80-96); MEAN PLT VOLUME 9.7 fl (7.5-11.1); NEUT % 74.7 % (42.8-82.8); PLATELET COUNT 197 K/MM3 (134-434); RBC 4.37 M/mm3 (3.60-5.2); RDW 15.8 % (11.6-15.6); WHITE BLOOD COUNT 8.2 K/mm3 (4.0-10.0)
[2018-11-04] MEDS ORDERED: SODIUM CHLORIDE 0.9% 500 ML INFUS.BAG IV ONE ×2 (14:34→16:34)
[2018-11-04 14:46] LABS: ALBUMIN 3.8 g/dl (3.4-5.0); ALK PHOS 108 U/L (45-117); ANION GAP 11 MMOL/L (8-16); BILIRUBIN,TOTAL 0.8 mg/dL (0.2-1); BLOOD UREA NITROGEN 19 mg/dL (7-18); CALCIUM 8.3 mg/dL (8.5-10.1); CHLORIDE 107 mmol/L (98-107); CO2 24 mmol/L (21-32); CREATININE 1.3 mg/dL (0.55-1.3); GLUCOSE,RANDOM 90 mg/dL (74-106); POTASSIUM 3.6 mmol/L (3.5-5.1); SGOT/AST 75 U/L (15-37); SGPT/ALT 65 U/L (13-61); SODIUM 142 mmol/L (136-145); TOT PROT 7.4 g/dl (6.4-8.2)
--- NOTE | 2018-11-04 15:35 | PDOC ---
Documentation entered by Raven Tovar SCRIBE, acting as scribe for Jorge Vazquez MD. Jorge Vazquez MD: This documentation has been prepared by the Guy olsen Adrianna, SCRIBE, under my direction and personally reviewed by me in its entirety. I confirm that the documentation accurately reflects all work, treatment, procedures, and medical decision making performed by me. Attending Attestation - Resident Resident Name: JennyferCristy - ED Attending Attestation I have performed the following: I have examined & evaluated the patient, The case was reviewed & discussed with the resident, I agree w/resident's findings & plan, Exceptions are as noted - HPI HPI: The patient is a 68 year old female, with a significant PMH of afib (on aspirin and metoprolol), hypertension, hyperlipidemia, ulcerative colitis, depression and alcohol abuse, who presents to the emergency department today s/p unwitnessed fall prior to arrival. Patient reports trying to adjust her air conditioner unit this morning, when she proceeded to fall forward. She reports hitting both her face and head during the fall, but is unsure if she lost consciousness or how long she was down for. Patient endorses associated headache, which is what prompted her visit to the ED. She admits to drinking vodka today. The patient denies chest pain, shortness of breath, and dizziness. Denies fever, chills, nausea, vomit, diarrhea and constipation. Denies dysuria, frequency, urgency and hematuria. Allergies: NKA Past surgical history: None reported Social history: EtOH abuse PCP: Dr. Shan Nino 11/04/18 13:46 - Physicial Exam PE: 11/04/18 18:13 General: No acute distress, alert and oriented x 3 HEENT: lower nasal abrasion, with mil dttp to palpation. atrauamatic scalp, CV: rrr, no mrg pulm: cta b/l, no wheezing/rales Abdomen: soft, non-tender, without rebound/guarding ext: no edema, neuro: moving all 4 ext spontaneously and symemtrically, normal gait, symmetric face, - Medical Decision Making 11/04/18 13:22 68y F afib, htn, hl, etoh abuse presents sp fall while she was adjusting her air conditioner, +loc - does not recall how long she was down for. Endorses some facial pain. denies any neck pain, severe headache, vision changes, cp, palpitations, n/v, diaprheosis, f/c, numbness/tingling weakness. endorses drinking earliertoday. on exam pt in no disress will obtain ct head basic labs will reasesss 11/04/18 14:26 EXAM#: TYPE/EXAM: RESULT: [id number] CT/CERVICAL SPINE CT W/O CONTR Status post fall IMPRESSION: The alignment is satisfactory. No gross fracture or subluxation is seen. Multilevel degenerative disc disease with anterior and posterior spur formation as well as bilateral uncovertebral hypertrophy, as described above. Reported By: Tomasa Sylvester MD 11/04/18 14:20 EXAM#: TYPE/EXAM: RESULT: [id number] CT/HEAD CT WITHOUT CONTRAST Status post fall IMPRESSION: No significant interval change or acute intracranial pathology is identified. Correlate CT to determine further evaluation and follow-up. Reported By: Tomasa Sylvester MD 11/04/18 14:20 EXAM#: TYPE/EXAM: RESULT: [id number] CT/FACIAL BONES CT W/O CONTRAST Status post fall IMPRESSION: No gross fracture is identified. Both orbits appear unremarkable. Nasal bone is intact. There is moderate deviation of the nasal septum towards the left Reported By: Tomasa Sylvester MD 11/04/18 14:20 11/04/18 15:35 11/04/18 18:15 ck slightly elevated, pt was hydrated stable clinclial sober, no signs of withdrawal pt alert/oriented ambulating with normal gait will dc with supportive care pt not interested in detox
[2018-11-04 17:36] LABS: EPI CELLS 5.8 /HPF (0-5/HPF); HYALINE CASTS 1 /lpf (0-8); URINE APPEARANCE CLEAR; URINE BACTERIA 76.6 /hpf (NEGATIVE); URINE BILIRUBIN NEGATIVE (NEGATIVE); URINE COLOR YELLOW; URINE GLUCOSE (UA) NEGATIVE (NEGATIVE); URINE KETONE NEGATIVE (NEGATIVE); URINE LEUK ESTERASE NEGATIVE (NEGATIVE); URINE NITRITE NEGATIVE (NEGATIVE); URINE PROTEIN 2+ (NEGATIVE); URINE RBC 1 /hpf (0-4); URINE UROBILINOGEN 0.2 mg/dL (0.2-1.0); URINE WBC 2 /hpf (0-5)
[2018-11-04 18:03] VITALS: BP 100/60; PULSE 80
--- NOTE | 2018-11-05 10:02 | EKG ---
Test Reason : Blood Pressure : / mmHG Vent. Rate : 097 BPM Atrial Rate : 087 BPM P-R Int : 000 ms QRS Dur : 092 ms QT Int : 378 ms P-R-T Axes : 000 129 118 degrees QTc Int : 480 ms ATRIAL FIBRILLATION RIGHT AXIS DEVIATION PULMONARY DISEASE PATTERN INCOMPLETE RIGHT BUNDLE BRANCH BLOCK ABNORMAL ECG WHEN COMPARED WITH ECG OF 02-NOV-2018 18:20, T WAVE INVERSION NO LONGER EVIDENT IN LATERAL LEADS Confirmed by MD ALEX, LUIS FERNANDO ([id number]) on 11/05/2018 10:02:11 AM Referred By: Confirmed By:LUIS FERNANDO JOHNSON MD
== END 2018-11-04 18:08 | disposition home or self-care (01) ==
LOC: JER 12:40
PROC: 3E033NZ Introduction of Analgesics, Hypnotics, Sedatives into Peripheral Vein, Percutaneous Approach (ICD-10-PCS; principal; 2018-11-04)
PROC: 3E0337Z Introduction of Electrolytic and Water Balance Substance into Peripheral Vein, Percutaneous Approach (ICD-10-PCS; 2018-11-04)
DX: S09.8XXA Other specified injuries of head, initial encounter (principal); S09.93XA Unspecified injury of face, initial encounter; S00.31XA Abrasion of nose, initial encounter; W01.198A Fall on same level from slipping, tripping and stumbling with subsequent striking against other object, initial encounter; Y93.89 Activity, other specified; Y92.038 Other place in apartment as the place of occurrence of the external cause; Y99.8 Other external cause status; I10 Essential (primary) hypertension; I48.2 Chronic atrial fibrillation; Z79.82 Long term (current) use of aspirin; E78.5 Hyperlipidemia, unspecified; F32.9 Major depressive disorder, single episode, unspecified; F10.10 Alcohol abuse, uncomplicated; Z87.19 Personal history of other diseases of the digestive system
CPT/HCPCS: 36415; 70450-TC; 70486-TC; 72125-TC; 80053; 81003; 82550; 82553; 84484; 85025; 87086; 93005; 93010; 96374; 99283-25

== ENCOUNTER 2018-11-05 06:14 | Inpatient (IN) | payer OTHER ==
--- NOTE | 2018-11-05 07:14 | PDOC ---
History of Present Illness - General Chief Complaint: Weakness Stated Complaint: WEAKNESS Time Seen by Provider: 11/05/18 07:13 History Source: Patient Exam Limitations: Intoxication - History of Present Illness Initial Comments: Pt is a 68 yo F, with PMH of AFib (on toprol), HTN, HLD, chronic alcohol use, and depression (prior admissions for SI), who is presenting with complaints of generalized muscle soreness and "dehydration". Pt states her son 2 weeks ago, and has been drinking more alcohol since that time, while barely eating or drinking throughout the day. Pt states she has been consistently taking her medication, but has been drinking up to a gallon of vodka every few days. Pt was seen in the ER yesterday after a fall, but pt denies drinking alcohol "for at least a few days ago" and denies any further falls from her work -up yesterday. Pt denies any fevers/chills, headache, vision changes, syncope, chest pain, palpitations, SOB, nausea/vomiting, abdominal pain, urinary symptoms , diarrhea/constipation, or leg swelling. Social: Chronic alcohol use as above. Pt denies any cigarette or drug use. Pt denies any recent travel or sick contacts. Surgical: no relevant history. Family: no relevant history. 11/05/18 15:04 Past History - Travel Traveled outside of the country in the last 30 days: No Close contact w/someone who was outside of country & ill: No - Past Medical History Allergies/Adverse Reactions: Allergies Allergy/AdvReac Type Severity Reaction Status Date / Time No Known Allergies Allergy Verified 11/05/18 06:43 Home Medications: Ambulatory Orders Metoprolol Succinate 100 mg PO BID 02/02/18 Pantoprazole Sodium [Protonix -] 40 mg PO DAILY 10/31/18 Rosuvastatin [Crestor -] 10 mg PO DAILY 10/31/18 Aspirin 81 mg PO DAILY 11/05/18 Lactulose [Cephulac -] 20 ml PO BID 11/05/18 Quetiapine Fumarate [Seroquel -] 12.5 mg PO HS 11/05/18 Sertraline HCl [Zoloft -] 25 mg PO DAILY 11/05/18 Anemia: No Asthma: No Cancer: No Cardiac Disorders: Yes (A-fib) CVA: No COPD: No CHF: No DVT: No Dementia: No Diabetes: Yes Dialysis: No GI Disorders: Yes (IBS, ulcerative colitis) Disorders: No HTN: Yes Hypercholesterolemia: Yes Kidney Stones: No Liver Disease: No Psychiatric Problems: Yes (depression, insomnia) Seizures: No Thyroid Disease: No Lung CA: No - Surgical History Abdominal Surgery: No Appendectomy: No Cardiac Surgery: No Cholecystectomy: No Lung Surgery: No Neurologic Surgery: No Orthopedic Surgery: No - Immunization History Immunization Up to Date: Yes - Suicide/Smoking/Psychosocial Hx Smoking Status: Yes Smoking History: Never smoked Have you smoked in the past 12 months: No Number of Cigarettes Smoked Daily: 0 If you are a former smoker, when did you quit?: 40 YEARS Information on smoking cessation initiated: No Hx Alcohol Use: Yes (Regular) Drug/Substance Use Hx: No Substance Use Type: Alcohol Hx Substance Use Treatment: No Review of Systems - Review of Systems Able to Perform ROS?: Yes Is the patient limited [place] proficient: No Constitutional: Yes: Loss of Appetite, Malaise, Weight Stable. No: Chills, Diaphoresis, Fever, Weakness HEENTM: No: Blurred Vision, Double Vision, Nose Congestion, Throat Swelling Respiratory: No: Cough, Orthopnea, Shortness of Breath Cardiac (ROS): Yes: Irregular Heart Rate (chronic AFib). No: Chest Pain, Edema , Lightheadedness, Palpitations, Syncope, Chest Tightness ABD/GI: Yes: Poor Appetite, Poor Fluid Intake. No: Constipated, Diarrhea, Nausea, Vomiting, Abdominal cramping : No: Burning, Dysuria, Frequency, Hematuria, Pain, Urgency Musculoskeletal: No: Back Pain, Joint Pain, Muscle Pain, Muscle Weakness Integumentary: Yes: Rash (chronic psoriasis) Neurological: Yes: Other (frequent falls from alcohol intox). No: Headache, Seizure (denies sz or alcohol withdrawal sz), Weakness, Unsteady Gait, Dizziness Psychiatric: No: Sleep Pattern Change, Change in Appetite Endocrine: No: Increased Urine, Change in Weight Hematologic/Lymphatic: No: Anemia, Blood Clots, Easy Bleeding, Easy Bruising All Other Systems: Reviewed and Negative *Physical Exam - Vital Signs Last Vital Signs Temp Pulse Resp BP Pulse Ox 98.1 F 101 H 18 133/96 97 11/05/18 06:14 11/05/18 06:14 11/05/18 06:14 11/05/18 06:14 11/05/18 06:14 - Physical Exam Comments: Tachycardic with Afib to 105, pt afebrile. Pt in NAD, but smells of alcohol, slightly slurring speech. Normal body habitus. No obvious acute injuries nor bleeding. Pt alert and oriented x3. Mild hand tremors, no tongue fasciculations. 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 No midline spinal tenderness, step-offs, or crepitus. Head normocephalic. Small ecchymosis over L eyebrow (noted yesterday on exam after fall). Eyes PERRLA, EOMI. Oropharynx without erythema or exudates, no LAD b/l. Dry oral mucosa. No nasal congestion, hearing intact. Clear heart sounds, S1/S2, no JVD, b/l pedal edema, or heart murmur. Clear lung sounds, no respiratory distress, wheezes, crackles, or accessory muscle use. No abdominal or CVA tenderness to palpation, no rebound, no guarding. Abdomen soft, non-distended, and with normoactive bowel sounds. Bruises on all extremities with scaly patches throughout. Skin without jaundice. 11/05/18 08:01 ED Treatment Course - LABORATORY CBC & Chemistry Diagram: 11/05/18 09:12 11/05/18 07:45 Medical Decision Making - Medical Decision Making Pt was seen at bedside, also will be seen by attending Dr. Del Angel. Pt presenting with complaints of generalized muscle soreness and "dehydration". Pt states her son 2 weeks ago, and has been drinking more alcohol since that time, while barely eating or drinking throughout the day. Pt states she has been consistently taking her medication, but has been drinking up to a gallon of vodka every few days. Pt was seen in the ER yesterday after a fall, but pt denies drinking alcohol "for at least a few days ago" and denies any further falls from her work-up yesterday. Pt denies any fevers/chills, headache , vision changes, syncope, chest pain, palpitations, SOB, nausea/vomiting, abdominal pain, urinary symptoms, diarrhea/constipation, or leg swelling. Nursing staff call to the pts pharmacy showed that pt has not refilled her medications. Considering continued alcohol use vs rhabdo. No FNDs/signs of CVA to explain weakness, more likely tox-metabolic in nature. Will get repeat labs to look at kidney function, CPK, and electrolytes. Ordered work-up including CBC, CMP, cardiac profile, ECG, UA. Provided 1 mg IV ativan and 1 L IV NS for improvement of dehydration and alcohol withdrawal/agitation. Pt continues to try to get out of bed, despite hospital staff encouraging her to stay in the bed. Will continue to reassess pt and monitor for symptomatic improvement. 11/05/18 08:03 CBC WNL CMP generally WNL for pt, BUN/Cr 23/1.4 which is slightly elevated for pt. Trop <.02 Alcohol level 262, despite pt adamantly insisting she has not been drinking alcohol. CK 1600 -- providing IVF Pt admitted to Dr. Nino for rhabdo and alcohol detox. Provided ativan and librium, 2nd liter of IV NS, tylenol, 4 mg IV zofran for nausea. 11/05/18 10:23 Provided home dose of toprol 100 mg PO for continued tachycardia. Pt was admitted upstairs, stable while in the ER. 11/05/18 11:14 11/05/18 15:00 *DC/Admit/Observation/Transfer Diagnosis at time of Disposition: Alcoholic fatty liver Rhabdomyolysis Qualifiers: Rhabdomyolysis type: non-traumatic Qualified Code(s): M62.82 - Rhabdomyolysis Atrial fibrillation Qualifiers: Atrial fibrillation type: chronic Qualified Code(s): I48.2 - Chronic atrial fibrillation Alcohol intoxication Qualifiers: Complication of substance-induced condition: uncomplicated Qualified Code(s): F10.920 - Alcohol use, unspecified with intoxication, uncomplicated - Discharge Dispostion Condition at time of disposition: Stable Decision to Admit order: Yes - Referrals - Patient Instructions - Post Discharge Activity
[2018-11-05] MEDS ORDERED: SODIUM CHLORIDE 1,000 ML IV STA ×2 (07:33→09:25)
[2018-11-05] MEDS ORDERED: LORazepam 2 MG/ML SDV VIAL ONE ×2 (07:48→09:57)
[2018-11-05 08:40] LABS: INR 1.13 (0.83-1.09); PROTHROMBIN TIME (PATIENT) 13.4 SEC (9.7-13.0)
[2018-11-05 08:47] LABS: ALBUMIN 3.5 g/dl (3.4-5.0); ALK PHOS 90 U/L (45-117); ANION GAP 16 MMOL/L (8-16); BLOOD UREA NITROGEN 23 mg/dL (7-18); CALCIUM 7.4 mg/dL (8.5-10.1); CHLORIDE 104 mmol/L (98-107); CO2 15 mmol/L (21-32); CREATININE 1.4 mg/dL (0.55-1.3); GLUCOSE,RANDOM 88 mg/dL (74-106); POTASSIUM 3.8 mmol/L (3.5-5.1); SGOT/AST 107 U/L (15-37); SGPT/ALT 68 U/L (13-61); SODIUM 134 mmol/L (136-145); TOT PROT 6.4 g/dl (6.4-8.2)
--- NOTE | 2018-11-05 08:57 | PDOC ---
Attending Attestation - Resident Resident Name: Milka Aguilera - ED Attending Attestation I have performed the following: I have examined & evaluated the patient, The case was reviewed & discussed with the resident, I agree w/resident's findings & plan - HPI HPI: 11/05/18 08:52 68-year-old female with history of atrial fibrillation on aspirin and Toprol, distant history of depression on SSRI in the past, chronic alcoholism with frequent visits over the last week in the setting of increased alcohol intake following the unexpected of her son. Patient has denied acute depression or suicidality, has had lab work and imaging on previous visits, most recently notable for a slightly elevated CK 1 day ago, otherwise visits have been identical to this one. Patient is complaining only of dehydration in the setting of decreased oral intake, generalized weakness without focal complaints of headache/vision change/speech change/chest pain/shortness of breath/ abdominal pain/vomiting/diarrhea/tremors/focal weakness. - Physicial Exam PE: 11/05/18 08:54 Vitals as noted, patient is alert in stretcher with alcohol on breath, standing but unsteady on her feet at this time Trauma exam is notable for scattered bruising and abrasions of various age throughout her body, no acute hematomas or lacerations and no apparent change from prior physical exam 1 day ago Heart is irregular with normal rate, lungs are clear Abdomen benign Neurological exam is nonfocal No tremors No SI/HI/AH/VH - Medical Decision Making 11/05/18 08:55 68-year-old female with another visit for dehydration in the setting of increased alcohol intake, likely triggered by grief from son's . Patient is denying trying to hurt herself, but her alcoholism seems to be worsening. Recent elevated CK, rule out rhabdo or acute renal insufficiency. Repeat labs IV fluids, Ativan No indication for emergent imaging Reassess, consider social work and revisiting options for detox/rehabilitation, which the patient has refused previously. 11/05/18 09:22 Labs notable for borderline/rising creatinine and still slowly rising CK levels. Received IV fluids, will admit for IV hydration and borderline rhabdo with acute renal injury, inability to care for self. Heart Score/ECG Review #1 ECG reviewed & interpreted by me at: 08:15 General ECG Interpretation: Normal Rate (afib at 98), Normal Intervals (qtc 515) , No acute ischemic changes
[2018-11-05 09:16] LABS: URINE APPEARANCE CLOUDY; URINE BILIRUBIN NEGATIVE (NEGATIVE); URINE COLOR YELLOW; URINE GLUCOSE (UA) NEGATIVE (NEGATIVE); URINE KETONE NEGATIVE (NEGATIVE); URINE LEUK ESTERASE 1+ (NEGATIVE); URINE NITRITE NEGATIVE (NEGATIVE); URINE PROTEIN 2+ (NEGATIVE); URINE UROBILINOGEN 0.2 mg/dL (0.2-1.0)
[2018-11-05 09:24] LABS: BASO % 0.5 % (0-2.0); EOS % 0.2 % (0-4.5); HEMATOCRIT 34.5 % (32.4-45.2); HEMOGLOBIN 11.1 GM/dL (10.7-15.3); LYMPH % 19.9 % (8-40); MCH 28.3 pg (25.7-33.7); MCHC 32.1 g/dl (32.0-36.0); MEAN CELL VOLUME 88.2 fl (80-96); MEAN PLT VOLUME 9.6 fl (7.5-11.1); MONO % 7.6 % (3.8-10.2); NEUT % 71.8 % (42.8-82.8); PLATELET COUNT 158 K/MM3 (134-434); RBC 3.91 M/mm3 (3.60-5.2); RDW 16.3 % (11.6-15.6); WHITE BLOOD COUNT 8.3 K/mm3 (4.0-10.0)
[2018-11-05] MEDS ORDERED: ACETAMINOPHEN 1000 MG/100 ML VIAL (NON FORMULARY) IVPB ONE (09:25)
[2018-11-05] MEDS ORDERED: ONDANSETRON 4 MG/2 ML VIAL IVPUSH ONE (09:25)
[2018-11-05] MEDS ORDERED: ONDANSETRON 4 MG/2 ML VIAL ONE (09:36)
[2018-11-05] MEDS ORDERED: ACETAMINOPHEN INJECTION 100 ML IVPB ONE (09:36)
[2018-11-05] MEDS ORDERED: chlordiazePOXIDE HCL 25 MG CAPSULE PO ONE ×2 (09:48→15:30)
[2018-11-05] MEDS ORDERED: chlordiazePOXIDE HCL 25 MG CAPSULE ONE (09:57)
--- NOTE | 2018-11-05 09:57 | EKG ---
Test Reason : Blood Pressure : / mmHG Vent. Rate : 098 BPM Atrial Rate : 394 BPM P-R Int : 000 ms QRS Dur : 094 ms QT Int : 404 ms P-R-T Axes : 000 118 115 degrees QTc Int : 515 ms ATRIAL FIBRILLATION LEFT POSTERIOR FASCICULAR BLOCK NONSPECIFIC T WAVE ABNORMALITY ABNORMAL ECG WHEN COMPARED WITH ECG OF 04-NOV-2018 15:31, INCOMPLETE RIGHT BUNDLE BRANCH BLOCK IS NO LONGER PRESENT Confirmed by MD ALEX, LUIS FERNANDO ([id number]) on 11/05/2018 9:57:11 AM Referred By: Confirmed By:LUIS FERNANDO JOHNSON MD
[2018-11-05 11:43] LABS: EPI CELLS 3+ /HPF (0-5/HPF); URINE BACTERIA 3+ /hpf (NEGATIVE)
[2018-11-05 11:44] LABS: HYALINE CASTS NONE SEEN /lpf (0-8)
[2018-11-05] MEDS ORDERED: ONDANSETRON 4 MG/2 ML VIAL IVPB PRN (12:56)
[2018-11-05] MEDS ORDERED: SODIUM CHLORIDE 1,000 ML IV SCH ×2 (13:00→18:10)
[2018-11-05] MEDS: ACETAMINOPHEN 325 MG TABLET (FP) PO PRN (13:18)
--- NOTE | 2018-11-05 14:28 | CON.CARD ---
Consult Consult Specialty:: Cardiology Referred by:: Mica Reason for Consultation:: Afib - History of Present Illness Chief Complaint: Weakness. Heavy etoh use History of Present Illness: 68 year old female with a pmhx of afib not on AC, depression, hld, htn, UC, h/o GI bleed, and chronic alcoholism with frequent admissions presents with weakness and acute etoh abuse after of her son last week. No chest pain or sob. No pnd, orthopnea, or edema. Has not been eating recently. Unclear if taking her medications. CK elevated ast/alt elevated EKG: afib with VR 98bpm - History Source History Provided By: Patient, Medical Record - Past Medical History Cardio/Vascular: Yes: AFIB, HTN, Hyperlipdemia Gastrointestinal: Yes: Irritable Bowel Disease, Pancreatitis (current alcoholic pancreatitis) Hepatobiliary: Yes: Other (current alcoholic hepatitis and likely cirrhosis) Psych: Yes: Addictions (alcohol abuse ) Endocrine: Yes: Diabetes Mellitus - Past Surgical History Past Surgical History: Yes: None - Alcohol/Substance Use Hx Alcohol Use: Yes (Regular) - Smoking History Smoking history: Never smoked Have you smoked in the past 12 months: No Aproximately how many cigarettes per day: 0 If you are a former smoker, when did you quit?: 40 YEARS - Social History Usual Living Arrangement: Alone ADL: Independent 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 History of Recent Travel: No Home Medications - Allergies Allergies/Adverse Reactions: Allergies Allergy/AdvReac Type Severity Reaction Status Date / Time No Known Allergies Allergy Verified 11/05/18 06:43 - Home Medications Home Medications: Ambulatory Orders Metoprolol Succinate 100 mg PO BID 02/02/18 Pantoprazole Sodium [Protonix -] 40 mg PO DAILY 10/31/18 Rosuvastatin [Crestor -] 10 mg PO DAILY 10/31/18 Aspirin 81 mg PO DAILY 11/05/18 Lactulose [Cephulac -] 20 ml PO BID 11/05/18 Quetiapine Fumarate [Seroquel -] 12.5 mg PO HS 11/05/18 Sertraline HCl [Zoloft -] 25 mg PO DAILY 11/05/18 Family Disease History - Family Disease History Family Disease History: CA: Mother (brain cancer, alcoholic), Other: Father ( alcoholic), Mother, Brother (alcoholic) Vital Signs: Vital Signs Temperature 98.1 F 11/05/18 06:14 Pulse Rate 98 H 11/05/18 10:20 Respiratory Rate 18 11/05/18 10:20 Blood Pressure 137/97 11/05/18 10:20 O2 Sat by Pulse Oximetry (%) 95 11/05/18 10:20 Constitutional: Yes: Other (Tremors) Neck: Yes: Supple Respiratory: Yes: CTA Bilaterally Gastrointestinal: Yes: Soft Cardiovascular: Yes: Pulse Irregular JVD: No Carotid Bruit: No PMI: Non-Displaced Heart Sounds: Yes: S1, S2 Murmur: No: Systolic Murmur Edema: No - Other Data Labs, Other Data: CBC, BMP 11/05/18 09:12 11/05/18 07:45 INR, PTT INR 1.13 (0.83-1.09) H 11/05/18 07:45 Troponin, BNP 11/05/18 07:45 Troponin I < 0.02 Troponin, BNP 11/05/18 07:45 Troponin I < 0.02 Imaging - Results EKG: Image Reviewed Problem List - Problems (1) Chronic a-fib Code(s): I48.2 - CHRONIC ATRIAL FIBRILLATION Assessment/Plan 68 year old female with a pmhx of afib not on AC, depression, htn, UC, h/o GI bleed, and chronic alcoholism with frequent admissions presents with weakness and acute etoh abuse after of her son last week. No chest pain or sob. No pnd, orthopnea, or edema. Has not been eating recently. Unclear if taking her medications. CK elevated ast/alt elevated EKG: afib with VR 98bpm Echo 06/2017 with normal LVEF 1) Afib -chronic afib known as outpatient. Follows with cardiology as outpatient in Dr. Nino's office. -HR is high 90s to low 100 on admission. Would restart home metoprolol dose. Treat etoh withdrawal as per primary team IVF's for elevated CPK. Electrolyte replesion as per primary team. -AC was stopped in the past. Presumably due to noncompliance and GI bleed. Meets criteria for AC but given previous history will f/u as outpatient to decide if should restart. No further cardiac testing at this time. Please call as needed
[2018-11-05] MEDS ORDERED: LORazepam 1 MG TABLET PO PRN ×2 (15:29→23:31)
--- NOTE | 2018-11-05 16:17 | HP ---
Admitting History and Physical - Primary Care Physician PCP: Shan Nino - Admission Chief Complaint: Nausea History of Present Illness: Patient is a 68 y/o female with past medical history of Afib on aspirin and toprol, depression, chronic alcoholism. Patient states that since her son one week ago she has had increase in alcohol consumption. Patient states she is also having poor appetite with decreased fluid intake. Patient states she called EMS for intractable nausea with lower abdominal cramping. History Source: Patient Limitations to Obtaining History: No Limitations - Past Medical History Cardiovascular: Yes: AFIB, HTN, Hyperlipdemia Gastrointestinal: Yes: Irritable Bowel Disease, Pancreatitis (current alcoholic pancreatitis) Hepatobiliary: Yes: Other (current alcoholic hepatitis and likely cirrhosis) Heme/Onc: Yes: Thrombocytopenia Psych: Yes: Addictions (alcohol abuse ) Endocrine: Yes: Diabetes Mellitus - Past Surgical History Past Surgical History: Yes: None - Smoking History Smoking history: Never smoked Have you smoked in the past 12 months: No Aproximately how many cigarettes per day: 0 If you are a former smoker, when did you quit?: 40 YEARS - Alcohol/Substance Use Hx Alcohol Use: Yes (Regular) - Social History Usual Living Arrangement: Yes: Alone ADL: Independent 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 History of Recent Travel: No Home Medications - Allergies Allergies/Adverse Reactions: Allergies Allergy/AdvReac Type Severity Reaction Status Date / Time No Known Allergies Allergy Verified 11/05/18 06:43 - Home Medications Home Medications: Ambulatory Orders Metoprolol Succinate 100 mg PO BID 02/02/18 Pantoprazole Sodium [Protonix -] 40 mg PO DAILY 10/31/18 Rosuvastatin [Crestor -] 10 mg PO DAILY 10/31/18 Aspirin 81 mg PO DAILY 11/05/18 Lactulose [Cephulac -] 20 ml PO BID 11/05/18 Quetiapine Fumarate [Seroquel -] 12.5 mg PO HS 11/05/18 Sertraline HCl [Zoloft -] 25 mg PO DAILY 11/05/18 Family Disease History - Family Disease History Family Disease History: CA: Mother (brain cancer, alcoholic), Other: Father ( alcoholic), Mother, Brother (alcoholic) Review of Systems - Review of Systems Constitutional: reports: Loss of Appetite, Weakness Eyes: reports: Blurred Vision HENT: reports: Difficult Swallowing Neck: reports: No Symptoms Cardiovascular: reports: Chest Pain Respiratory: reports: SOB Gastrointestinal: reports: Abdominal Pain, Nausea Genitourinary: reports: No Symptoms Breasts: reports: No Symptoms Reported Musculoskeletal: reports: No Symptoms Integumentary: reports: No Symptoms Neurological: reports: No Symptoms Endocrine: reports: No Symptoms Hematology/Lymphatic: reports: No Symptoms Psychiatric: reports: Depression Physical Examination Vital Signs: Vital Signs Temperature 97.8 F 11/05/18 14:47 Pulse Rate 94 H 11/05/18 14:47 Respiratory Rate 22 H 11/05/18 14:47 Blood Pressure 137/99 11/05/18 14:47 O2 Sat by Pulse Oximetry (%) 95 11/05/18 10:20 Constitutional: Yes: No Distress, Anxious Eyes: Yes: Conjunctiva Clear HENT: Yes: Atraumatic Neck: Yes: Supple Cardiovascular: Yes: Pulse Irregular Respiratory: Yes: Regular, CTA Bilaterally Gastrointestinal: Yes: Normal Bowel Sounds, Soft Musculoskeletal: Yes: WNL Extremities: Yes: WNL Edema: No Integumentary: Yes: Rash (psoriasis) Neurological: Yes: Alert, Oriented Psychiatric: Yes: Alert, Oriented Labs: CBC, BMP 11/05/18 09:12 11/05/18 07:45 Problem List - Problems (1) Atrial fibrillation Assessment/Plan: -cardiology consult -Aspirin and Metoprolol Code(s): I48.91 - UNSPECIFIED ATRIAL FIBRILLATION Qualifiers: Atrial fibrillation type: chronic Qualified Code(s): I48.2 - Chronic atrial fibrillation (2) Rhabdomyolysis Assessment/Plan: -CK 1628 -IV hydration -repeat CK to monitor for downtrend Code(s): M62.82 - RHABDOMYOLYSIS Qualifiers: Rhabdomyolysis type: non-traumatic Qualified Code(s): M62.82 - Rhabdomyolysis (3) Abdominal pain Assessment/Plan: -Zofran prn for nausea -Abdominal US Code(s): R10.9 - UNSPECIFIED ABDOMINAL PAIN Qualifiers: Abdominal location: generalized Qualified Code(s): R10.84 - Generalized abdominal pain (4) Alcohol dependence Assessment/Plan: -consult for Dr Bishop -George taper -psych consult -fall precaution -Thiamine, Folic acid, MVI Code(s): F10.20 - ALCOHOL DEPENDENCE, UNCOMPLICATED Qualifiers: Substance use status: unspecified alcohol-induced disorder Qualified Code(s ): F10.29 - Alcohol dependence with unspecified alcohol-induced disorder (5) Depression Assessment/Plan: -psych consult -Zoloft Code(s): F32.9 - MAJOR DEPRESSIVE DISORDER, SINGLE EPISODE, UNSPECIFIED (6) HTN (hypertension) Assessment/Plan: -low Na diet Code(s): I10 - ESSENTIAL (PRIMARY) HYPERTENSION Assessment/Plan see problem list dvt ppx
--- NOTE | 2018-11-05 17:14 | PN ---
[facility] CIWA - CIWA Score Nausea/Vomitin Muscle Tremors: 7-Severe,w/o Arm Extended Anxiety: 5 Agitation: 4-Moderately Restless Paroxysmal Sweats: 2 Orientation: 0-Oriented Tacttile Disturbances: 0-None Auditory Disturbances: 0-None Visual Disturbances: 2-Mild Sensitivity Headache: 0-None Present CIWA-Ar Total Score: 23 S Progress Note (SOAP) Subjective: pt referred for consultation , reports etoh abuse 1 bottle vodka in 1 week since the for her 32 yr old son , current symptoms as above, pt reports hx of etoh abuse w/detox several years ago . This admission pt presented for dehydration. PMHX : A- fib Active Medications Acetaminophen (Tylenol -) 650 mg PO Q6H PRN PRN Reason: PAIN LEVEL 1-5 Last Admin: 11/05/18 13:18 Dose: 650 mg Aspirin (Asa -) 81 mg PO DAILY [facility] Chlordiazepoxide HCl (Librium -) 50 mg PO Q6HPO [facility] Stop: 11/06/18 17:59 Chlordiazepoxide HCl (Librium -) 25 mg PO Q6HPO [facility] Stop: 11/07/18 17:59 Chlordiazepoxide HCl (Librium -) 10 mg PO Q6HPO [facility] Stop: 11/08/18 17:59 Chlordiazepoxide HCl (Librium -) 10 mg PO BID [facility] Stop: 11/09/18 21:59 Chlordiazepoxide HCl (Librium -) 10 mg PO ONCE ONE Stop: 11/09/18 15:28 Folic Acid (Folic Acid -) 1 mg PO DAILY [facility] Sodium Chloride (Normal Saline -) 1,000 mls @ 75 mls/hr IV ASDIR [facility] Last Admin: 11/05/18 14:02 Dose: 75 mls/hr Lactulose (Cephulac (Oral Use)) 20 gm PO BID [facility] Metoprolol Succinate (Toprol Xl -) 100 mg PO BID [facility] Multivitamins/Minerals/Vitamin C (Tab-A-Vit -) 1 tab PO DAILY [facility] Non-Formulary Medication (Lactulose) 20 ml PO BID [facility] Ondansetron HCl (Zofran Injection) 4 mg IVPB Q6H PRN PRN Reason: NAUSEA Last Admin: 11/05/18 15:36 Dose: 4 mg Pantoprazole Sodium (Protonix -) 40 mg PO DAILY [facility] Quetiapine Fumarate (Seroquel -) 12.5 mg PO HS [facility] Rosuvastatin Calcium (Crestor -) 10 mg PO DAILY [facility] Sertraline HCl (Zoloft -) 25 mg PO DAILY [facility] Thiamine HCl (Vitamin B1 -) 100 mg PO DAILY [facility] several years ago in [place] and claims she has maintained sobreity until recebnt events . Also reports unrelated fall while trying to climb on a chair to adjust AC settings in her home . Objective: wnwd , ambulating , unsteady gait , disheveled, moderate distress tremulous , anxious , tearful at times multiple UE ecchymoses CBC, BMP 11/05/18 09:12 11/05/18 07:45 Abnormal Lab Results 11/05/18 11/05/18 11/05/18 07:45 07:45 09:02 RDW PT with INR 13.40 H INR 1.13 H Sodium 134 L Carbon Dioxide 15 L BUN 23 H Creatinine 1.4 H Calcium 7.4 L AST 107 H ALT 68 H Creatine Kinase 1628 H CK-MB (CK-2) 21.6 H Ur Specific [place] 1.007 L Urine Protein 2+ H Urine Blood 2+ H Ur Leukocyte Esterase 1+ H Alcohol, Quantitative 262.3 H 11/05/18 09:12 RDW 16.3 H PT with INR INR Sodium Carbon Dioxide BUN Creatinine Calcium AST ALT Creatine Kinase CK-MB (CK-2) Ur Specific [place] Urine Protein Urine Blood Ur Leukocyte Esterase Alcohol, Quantitative Vital Signs - 24 hr 11/05/18 11/05/18 11/05/18 06:14 07:15 10:20 Temperature 98.1 F Pulse Rate 101 H Pulse Rate [ 88 98 H Apical] Respiratory 18 20 18 Rate Blood Pressure 133/96 Blood Pressure 124/98 137/97 [Right Arm] O2 Sat by Pulse 97 95 95 Oximetry (%) 11/05/18 14:47 Temperature 97.8 F Pulse Rate 94 H Pulse Rate [ Apical] Respiratory 22 H Rate Blood Pressure 137/99 Blood Pressure [Right Arm] O2 Sat by Pulse Oximetry (%) Assessment: Alcohol dependence w/ withdrawal Plan: Librium taper d/w pt , agreeable
[2018-11-05 18:02] VITALS: BMI 27.8
--- NOTE | 2018-11-05 18:09 | CONSULT ---
Consult Consult Specialty:: Nephrology Reason for Consultation:: CKD and rhabdo - History of Present Illness Chief Complaint: muscle soreness History of Present Illness: Pt is a 68 year old female with pmhx of a-fib, ckd, htn, etoh abuse, htn, hld, and depression who presents to the ER with muscle soreness and complaints that she has been drinking heavily. She says she lost her son a few weeks ago and has been drinking heavily since that time. She was found to have elevated category analyst and found to have rhabdo. She does complain of soreness in her muscles. She denies dysuria or hematuria. - History Source History Provided By: Patient, Medical Record - Past Medical History Cardio/Vascular: Yes: AFIB, HTN, Hyperlipdemia Gastrointestinal: Yes: Irritable Bowel Disease, Pancreatitis (current alcoholic pancreatitis) Hepatobiliary: Yes: Other (current alcoholic hepatitis and likely cirrhosis) Renal/: Yes: Renal Inusuff ...: No Psych: Yes: Addictions (alcohol abuse ) Endocrine: Yes: Diabetes Mellitus - Past Surgical History Past Surgical History: Yes: None - Alcohol/Substance Use Hx Alcohol Use: Yes (Regular) - Smoking History Smoking history: Never smoked Have you smoked in the past 12 months: No Aproximately how many cigarettes per day: 0 If you are a former smoker, when did you quit?: 40 YEARS - Social History Usual Living Arrangement: Alone ADL: Independent 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 History of Recent Travel: No Home Medications - Allergies Allergies/Adverse Reactions: Allergies Allergy/AdvReac Type Severity Reaction Status Date / Time No Known Allergies Allergy Verified 11/05/18 06:43 - Home Medications Home Medications: Ambulatory Orders Metoprolol Succinate 100 mg PO BID 02/02/18 Pantoprazole Sodium [Protonix -] 40 mg PO DAILY 10/31/18 Rosuvastatin [Crestor -] 10 mg PO DAILY 10/31/18 Aspirin 81 mg PO DAILY 11/05/18 Lactulose [Cephulac -] 20 ml PO BID 11/05/18 Quetiapine Fumarate [Seroquel -] 12.5 mg PO HS 11/05/18 Sertraline HCl [Zoloft -] 25 mg PO DAILY 11/05/18 Family Disease History - Family Disease History Family Disease History: CA: Mother (brain cancer, alcoholic), Other: Father ( alcoholic), Mother, Brother (alcoholic) Review of Systems - Review of Systems Constitutional: reports: Malaise Eyes: reports: No Symptoms HENT: reports: No Symptoms Neck: reports: No Symptoms Cardiovascular: reports: No Symptoms Respiratory: reports: No Symptoms Gastrointestinal: reports: No Symptoms Genitourinary: reports: No Symptoms Musculoskeletal: reports: Muscle Pain, Muscle Cramps Integumentary: reports: No Symptoms Neurological: reports: No Symptoms Endocrine: reports: No Symptoms Hematology/Lymphatic: reports: No Symptoms Psychiatric: reports: No Symptoms Physical Exam Vital Signs: Vital Signs Temperature 97.8 F 11/05/18 14:47 Pulse Rate 94 H 11/05/18 14:47 Respiratory Rate 22 H 11/05/18 14:47 Blood Pressure 137/99 11/05/18 14:47 O2 Sat by Pulse Oximetry (%) 97 11/05/18 12:09 Constitutional: Yes: Calm Eyes: Yes: Conjunctiva Clear HENT: Yes: Atraumatic Neck: Yes: Supple Cardiovascular: Yes: S1, S2 Respiratory: Yes: CTA Bilaterally Gastrointestinal: Yes: Soft Renal/: Yes: WNL Musculoskeletal: Yes: WNL Edema: No Neurological: Yes: Oriented Psychiatric: Yes: Oriented Labs: CBC, BMP 11/05/18 09:12 11/05/18 07:45 Laboratory Tests 10/17/18 10/31/18 10/31/18 06:00 16:50 23:10 Sodium BUN Creatinine 1.0 1.2 1.4 H Est GFR (CKD-EPI)NonAf Calcium Creatine Kinase Albumin Urine Protein 11/04/18 11/05/18 11/05/18 13:54 07:45 09:02 Sodium 134 L BUN 23 H Creatinine 1.3 1.4 H Est GFR (CKD-EPI)NonAf 38.78 Calcium 7.4 L Creatine Kinase 1628 H Albumin 3.5 Urine Protein 2+ H Problem List - Problems (1) CKD (chronic kidney disease) Code(s): N18.9 - CHRONIC KIDNEY DISEASE, UNSPECIFIED (2) Rhabdomyolysis Code(s): M62.82 - RHABDOMYOLYSIS Qualifiers: Rhabdomyolysis type: non-traumatic Qualified Code(s): M62.82 - Rhabdomyolysis Assessment/Plan Current Medications Generic Name Dose Route Start Last Admin Trade Name Freq PRN Reason Stop Dose Admin Acetaminophen 650 mg 11/05/18 12:12 11/05/18 13:18 Tylenol - PO 650 mg Q6H PRN Administration PAIN LEVEL 1-5 Aspirin 81 mg 11/06/18 10:00 Asa - PO DAILY [facility] Chlordiazepoxide HCl 50 mg 11/05/18 18:00 Librium - PO 11/06/18 17:59 Q6HPO [facility] Chlordiazepoxide HCl 25 mg 11/06/18 18:00 Librium - PO 11/07/18 17:59 Q6HPO [facility] Chlordiazepoxide HCl 10 mg 11/07/18 18:00 Librium - PO 11/08/18 17:59 Q6HPO [facility] Chlordiazepoxide HCl 10 mg 11/08/18 22:00 Librium - PO 11/09/18 21:59 BID [facility] Chlordiazepoxide HCl 10 mg 11/09/18 15:27 Librium - PO 11/09/18 15:28 ONCE ONE Folic Acid 1 mg 11/06/18 10:00 Folic Acid - PO DAILY [facility] Sodium Chloride 1,000 mls @ 75 mls/hr 11/05/18 13:00 11/05/18 14:02 Normal Saline - IV 75 mls/hr ASDIR [facility] Administration Lactulose 20 gm 11/05/18 22:00 Cephulac (Oral Use) PO BID [facility] Metoprolol Succinate 100 mg 11/05/18 22:00 Toprol Xl - PO BID [facility] Multivitamins/Minerals/Vitamin C 1 tab 11/06/18 10:00 Tab-A-Vit - PO DAILY [facility] Non-Formulary Medication 20 ml 11/05/18 22:00 Lactulose PO BID [facility] Ondansetron HCl 4 mg 11/05/18 12:56 11/05/18 15:36 Zofran Injection IVPB 4 mg Q6H PRN Administration NAUSEA Pantoprazole Sodium 40 mg 11/06/18 10:00 Protonix - PO DAILY [facility] Quetiapine Fumarate 12.5 mg 11/05/18 22:00 Seroquel - PO [facility] Rosuvastatin Calcium 10 mg 11/06/18 10:00 Crestor - PO DAILY [facility] Sertraline HCl 25 mg 11/06/18 10:00 Zoloft - PO DAILY [facility] Thiamine HCl 100 mg 11/06/18 10:00 Vitamin B1 - PO DAILY [facility] Impression 1. CKD 2. etoh abuse 3. hypocalcemia 4. paroxysmal A fib 5. HTN 6. HLD 7. DM 8. Ulcerative colitis Plan - cont fluids, increase rate to 100 - monitor renal function - repeat ua tomorrow - check cpk daily - will need outpt ckd workup - replace calcium
--- NOTE | 2018-11-05 18:14 | CON.PSY ---
Psychiatry Consult Chief Complaint: 68 [place] o9ld female with a long history of Alcohol abusec and dependence and secondary depression. Patient sen for Psych eval for Depression. On Librium detox. Patient's Son apparantly recently but she has been drinking excessively. Patient has sighjned AMA in trhe Past. Symptoms: reports: Irritability, Anxiety - Previous Psychiatric Treatment Outpatient: More than 6 mos ago Inpatient: None - Previous Substance Abuse Treatment Outpatient: None - Reason for Previous Treatment Reason for Previous Treatment: Alcohol Abuse - Current Medications Current Medications: Active Medications Acetaminophen (Tylenol -) 650 mg PO Q6H PRN PRN Reason: PAIN LEVEL 1-5 Last Admin: 11/05/18 13:18 Dose: 650 mg Aspirin (Asa -) 81 mg PO DAILY [facility] Chlordiazepoxide HCl (Librium -) 50 mg PO Q6HPO [facility] Stop: 11/06/18 17:59 Chlordiazepoxide HCl (Librium -) 25 mg PO Q6HPO [facility] Stop: 11/07/18 17:59 Chlordiazepoxide HCl (Librium -) 10 mg PO Q6HPO [facility] Stop: 11/08/18 17:59 Chlordiazepoxide HCl (Librium -) 10 mg PO BID [facility] Stop: 11/09/18 21:59 Chlordiazepoxide HCl (Librium -) 10 mg PO ONCE ONE Stop: 11/09/18 15:28 Folic Acid (Folic Acid -) 1 mg PO DAILY [facility] Sodium Chloride (Normal Saline -) 1,000 mls @ 75 mls/hr IV ASDIR [facility] Last Admin: 11/05/18 14:02 Dose: 75 mls/hr Lactulose (Cephulac (Oral Use)) 20 gm PO BID [facility] Metoprolol Succinate (Toprol Xl -) 100 mg PO BID [facility] Multivitamins/Minerals/Vitamin C (Tab-A-Vit -) 1 tab PO DAILY [facility] Non-Formulary Medication (Lactulose) 20 ml PO BID [facility] Ondansetron HCl (Zofran Injection) 4 mg IVPB Q6H PRN PRN Reason: NAUSEA Last Admin: 11/05/18 15:36 Dose: 4 mg Pantoprazole Sodium (Protonix -) 40 mg PO DAILY [facility] Quetiapine Fumarate (Seroquel -) 12.5 mg PO HS [facility] Rosuvastatin Calcium (Crestor -) 10 mg PO DAILY [facility] Sertraline HCl (Zoloft -) 25 mg PO DAILY [facility] Thiamine HCl (Vitamin B1 -) 100 mg PO DAILY [facility] - Allergies Allergies: Allergies Allergy/AdvReac Type Severity Reaction Status Date / Time No Known Allergies Allergy Verified 11/05/18 06:43 - Current Living Status Usual Living Arrangement: Alone - Current Mental Status Evaluation Appearance: Disheveled Attitude: Guarded - Affect Affect: Full Range Appropriateness: Appropriate to Content - Mood Mood: Irritable - Speech/Language Expressive: Coherent - Psychomotor Activity Psychomotor Activity: Hyperactive - Thought Process Thought Process: Intact - Thought Content Hallucinations: Absent Delusions: Absent - Self Perception Self Perception: No Impairment - Cognition Attention: Alert Orientation: Time Memory, Immediate Recall: Intact Memory, Short Term: 3/3 Memory, Remote with Promptin/3 - Concentration Serial Sevens Intact: No Simple Calculations Intact: Yes - Abstraction Proverb Interpretation: Impaired Judgement: Minimally Impaired - Insight Insight: Intact - Impulse Control Impulse Control: Moderately Impaired - Suicidal Ideation Suicidal Ideation: No - Homicidal Ideation Homicidal Ideation: No Assessment/Plan 1) Continue with Zoloft, Patient does not want ton take it.. They don't help me. 2) Patient has the capacity to sign out AMA.
[2018-11-05] MEDS: chlordiazePOXIDE HCL 25 MG CAPSULE PO SCH ×2 (18:47→23:21)
[2018-11-05] MEDS: CALCIUM 500MG/VIT-D 200 UNITS COMBO TABLET (FP) PO SCH (19:01)
[2018-11-05] MEDS ORDERED: METOCLOPRAMIDE HCL INJECTION 10 MG/2 ML VIAL IVPUSH ONE (19:45)
[2018-11-05] MEDS ORDERED: ALPRAZolam 0.25 MG TABLET PO ONE (20:51)
[2018-11-05] MEDS ORDERED: LACTULOSE 20 GM/30 ML UDC (FOR ORAL USE ONLY) PO SCH (22:00)
[2018-11-05] MEDS: QUEtiapine FUMARATE 25 MG TABLET (FP) PO SCH (22:24)
[2018-11-06] MEDS: LORazepam 1 MG TABLET PO PRN ×2 (02:40→22:35)
[2018-11-06] MEDS: ACETAMINOPHEN 325 MG TABLET (FP) PO PRN ×2 (02:40→13:54)
[2018-11-06] MEDS: chlordiazePOXIDE HCL 25 MG CAPSULE PO SCH ×3 (06:19→17:45)
[2018-11-06 07:56] LABS: BASO % 0.3 % (0-2.0); HEMATOCRIT 33.7 % (32.4-45.2); HEMOGLOBIN 10.8 GM/dL (10.7-15.3); LYMPH % 13.3 % (8-40); MCH 28.4 pg (25.7-33.7); MCHC 32.2 g/dl (32.0-36.0); MEAN CELL VOLUME 88.2 fl (80-96); MEAN PLT VOLUME 10.5 fl (7.5-11.1); MONO % 8.8 % (3.8-10.2); NEUT % 77.6 % (42.8-82.8); PLATELET COUNT 133 K/MM3 (134-434); RBC 3.82 M/mm3 (3.60-5.2); RDW 16.3 % (11.6-15.6); WHITE BLOOD COUNT 7.8 K/mm3 (4.0-10.0)
[2018-11-06 08:34] LABS: ALBUMIN 3.4 g/dl (3.4-5.0); ALK PHOS 91 U/L (45-117); ANION GAP 17 MMOL/L (8-16); BLOOD UREA NITROGEN 26 mg/dL (7-18); CALCIUM 7.8 mg/dL (8.5-10.1); CHLORIDE 107 mmol/L (98-107); CO2 15 mmol/L (21-32); CREATININE 1.4 mg/dL (0.55-1.3); GLUCOSE,RANDOM 86 mg/dL (74-106); MAGNESIUM 1.4 mg/dL (1.8-2.4); N-TERMINAL BNP 16605.8 pg/ml (5-125); PHOSPHOROUS 3.3 mg/dL (2.5-4.9); SGOT/AST 70 U/L (15-37); SGPT/ALT 64 U/L (13-61); SODIUM 139 mmol/L (136-145); TOT PROT 6.2 g/dl (6.4-8.2)
[2018-11-06] MEDS: SERTRALINE HCL 25 MG TABLET (FP) PO SCH (09:39)
[2018-11-06] MEDS: FOLIC ACID 1 MG TABLET (FP) PO SCH (09:41)
[2018-11-06] MEDS: ROSUVASTATIN CA 10 MG TABLET (FP) PO SCH (09:42)
[2018-11-06] MEDS: PANTOPRAZOLE 40 MG TABLET (FP) PO SCH (09:42)
[2018-11-06] MEDS: ASPIRIN 81 MG CHEWABLE TABLETS PO SCH (09:43)
[2018-11-06] MEDS: MULTIVITAMINS (DAILY MVI) TABLET (FP) PO SCH (09:43)
[2018-11-06] MEDS: CALCIUM 500MG/VIT-D 200 UNITS COMBO TABLET (FP) PO SCH (09:44)
--- NOTE | 2018-11-06 11:18 | PN ---
Progress Note, Physician History of Present Illness: Pt seen and examined at bedside. She feels that the muscle pain is improved. - Current Medication List Current Medications: Active Medications Acetaminophen (Tylenol -) 650 mg PO Q6H PRN PRN Reason: PAIN LEVEL 1-5 Last Admin: 11/06/18 02:40 Dose: 650 mg Aspirin (Asa -) 81 mg PO DAILY [facility] Last Admin: 11/06/18 09:43 Dose: 81 mg Calcium Carbonate/Cholecalciferol (Os-Hardik 500+D -) 2 tab PO DAILY [facility] Last Admin: 11/06/18 09:44 Dose: 2 tab Chlordiazepoxide HCl (Librium -) 50 mg PO Q6HPO [facility] Stop: 11/06/18 17:59 Last Admin: 11/06/18 06:19 Dose: 50 mg Chlordiazepoxide HCl (Librium -) 25 mg PO Q6HPO [facility] Stop: 11/07/18 17:59 Chlordiazepoxide HCl (Librium -) 10 mg PO Q6HPO [facility] Stop: 11/08/18 17:59 Chlordiazepoxide HCl (Librium -) 10 mg PO BID [facility] Stop: 11/09/18 21:59 Chlordiazepoxide HCl (Librium -) 10 mg PO ONCE ONE Stop: 11/09/18 15:28 Folic Acid (Folic Acid -) 1 mg PO DAILY [facility] Last Admin: 11/06/18 09:41 Dose: 1 mg Sodium Chloride (Normal Saline -) 1,000 mls @ 100 mls/hr IV ASDIR [facility] Last Admin: 11/05/18 19:02 Dose: 100 mls/hr Lactulose (Cephulac (Oral Use)) 20 gm PO BID [facility] Lorazepam (Ativan -) 1 mg PO Q8H PRN PRN Reason: AGITATION Last Admin: 11/06/18 02:40 Dose: 1 mg Metoprolol Succinate (Toprol Xl -) 100 mg PO BID [facility] Last Admin: 11/06/18 09:42 Dose: 100 mg Multivitamins/Minerals/Vitamin C (Tab-A-Vit -) 1 tab PO DAILY [facility] Last Admin: 11/06/18 09:43 Dose: 1 tab Non-Formulary Medication (Lactulose) 20 ml PO BID [facility] Pantoprazole Sodium (Protonix -) 40 mg PO DAILY [facility] Last Admin: 11/06/18 09:42 Dose: 40 mg Quetiapine Fumarate (Seroquel -) 12.5 mg PO HS [facility] Last Admin: 11/05/18 22:24 Dose: 12.5 mg Rosuvastatin Calcium (Crestor -) 10 mg PO DAILY [facility] Last Admin: 11/06/18 09:42 Dose: 10 mg Sertraline HCl (Zoloft -) 25 mg PO DAILY [facility] Last Admin: 11/06/18 09:39 Dose: Not Given Thiamine HCl (Vitamin B1 -) 100 mg PO DAILY [facility] - Objective Vital Signs: Vital Signs Temperature 98.5 F 11/06/18 09:00 Pulse Rate 108 H 11/06/18 09:00 Respiratory Rate 20 11/06/18 09:00 Blood Pressure 136/69 11/06/18 09:00 O2 Sat by Pulse Oximetry (%) 96 11/06/18 09:00 Constitutional: Yes: Calm Eyes: Yes: Conjunctiva Clear HENT: Yes: Atraumatic Neck: Yes: Supple Cardiovascular: Yes: S1, S2 Respiratory: Yes: CTA Bilaterally Gastrointestinal: Yes: Normal Bowel Sounds, Soft Genitourinary: Yes: WNL Musculoskeletal: Yes: WNL Edema: No Neurological: Yes: Oriented Psychiatric: Yes: Oriented Labs: CBC, BMP 11/06/18 06:23 11/06/18 06:23 INR, PTT INR 1.13 (0.83-1.09) H 11/05/18 07:45 Problem List - Problems (1) CKD (chronic kidney disease) Code(s): N18.9 - CHRONIC KIDNEY DISEASE, UNSPECIFIED (2) Rhabdomyolysis Code(s): M62.82 - RHABDOMYOLYSIS Qualifiers: Rhabdomyolysis type: non-traumatic Qualified Code(s): M62.82 - Rhabdomyolysis Assessment/Plan Current Medications Generic Name Dose Route Start Last Admin Trade Name Freq PRN Reason Stop Dose Admin Acetaminophen 650 mg 11/05/18 12:12 11/06/18 02:40 Tylenol - PO 650 mg Q6H PRN Administration PAIN LEVEL 1-5 Aspirin 81 mg 11/06/18 10:00 11/06/18 09:43 Asa - PO 81 mg DAILY [facility] Administration Calcium Carbonate/Cholecalciferol 2 tab 11/05/18 18:15 11/06/18 09:44 Os-Hardik 500+D - PO 2 tab DAILY [facility] Administration Chlordiazepoxide HCl 50 mg 11/05/18 18:00 11/06/18 06:19 Librium - PO 11/06/18 17:59 50 mg Q6HPO [facility] Administration Chlordiazepoxide HCl 25 mg 11/06/18 18:00 Librium - PO 11/07/18 17:59 Q6HPO [facility] Chlordiazepoxide HCl 10 mg 11/07/18 18:00 Librium - PO 11/08/18 17:59 Q6HPO [facility] Chlordiazepoxide HCl 10 mg 11/08/18 22:00 Librium - PO 11/09/18 21:59 BID [facility] Chlordiazepoxide HCl 10 mg 11/09/18 15:27 Librium - PO 11/09/18 15:28 ONCE ONE Folic Acid 1 mg 11/06/18 10:00 11/06/18 09:41 Folic Acid - PO 1 mg DAILY [facility] Administration Sodium Chloride 1,000 mls @ 100 mls/hr 11/05/18 18:10 11/05/18 19:02 Normal Saline - IV 100 mls/hr ASDIR [facility] Administration Lactulose 20 gm 11/05/18 22:00 Cephulac (Oral Use) PO BID [facility] Lorazepam 1 mg 11/05/18 23:34 11/06/18 02:40 Ativan - PO 1 mg Q8H PRN Administration AGITATION Metoprolol Succinate 100 mg 11/05/18 22:00 11/06/18 09:42 Toprol Xl - PO 100 mg BID [facility] Administration Multivitamins/Minerals/Vitamin C 1 tab 11/06/18 10:00 11/06/18 09:43 Tab-A-Vit - PO 1 tab DAILY [facility] Administration Non-Formulary Medication 20 ml 11/05/18 22:00 Lactulose PO BID [facility] Pantoprazole Sodium 40 mg 11/06/18 10:00 11/06/18 09:42 Protonix - PO 40 mg DAILY [facility] Administration Quetiapine Fumarate 12.5 mg 11/05/18 22:00 11/05/18 22:24 Seroquel - PO 12.5 mg HS [facility] Administration Rosuvastatin Calcium 10 mg 11/06/18 10:00 11/06/18 09:42 Crestor - PO 10 mg DAILY [facility] Administration Sertraline HCl 25 mg 11/06/18 10:00 11/06/18 09:39 Zoloft - PO Not Given DAILY [facility] Thiamine HCl 100 mg 11/06/18 10:00 Vitamin B1 - PO DAILY [facility] Laboratory Tests 11/06/18 11/06/18 06:23 06:23 Creatinine 1.4 H Creatine Kinase 1230 H Impression 1. CKD 2. etoh abuse 3. hypocalcemia 4. paroxysmal A fib 5. HTN 6. HLD 7. DM 8. Ulcerative colitis Plan - cont to monitor renal function - cpk improving - decrease fluids - repeat ua - check cpk daily - will need outpt ckd workup - replace calcium
--- NOTE | 2018-11-06 11:51 | PN ---
Progress Note, Physician Chief Complaint: AWAKE ALERT EVENTS AND NOTES REVIEWED - Current Medication List Current Medications: Active Medications Acetaminophen (Tylenol -) 650 mg PO Q6H PRN PRN Reason: PAIN LEVEL 1-5 Last Admin: 11/06/18 02:40 Dose: 650 mg Aspirin (Asa -) 81 mg PO DAILY [facility] Last Admin: 11/06/18 09:43 Dose: 81 mg Calcium Carbonate/Cholecalciferol (Os-Hardik 500+D -) 2 tab PO DAILY [facility] Last Admin: 11/06/18 09:44 Dose: 2 tab Chlordiazepoxide HCl (Librium -) 50 mg PO Q6HPO [facility] Stop: 11/06/18 17:59 Last Admin: 11/06/18 06:19 Dose: 50 mg Chlordiazepoxide HCl (Librium -) 25 mg PO Q6HPO [facility] Stop: 11/07/18 17:59 Chlordiazepoxide HCl (Librium -) 10 mg PO Q6HPO [facility] Stop: 11/08/18 17:59 Chlordiazepoxide HCl (Librium -) 10 mg PO BID [facility] Stop: 11/09/18 21:59 Chlordiazepoxide HCl (Librium -) 10 mg PO ONCE ONE Stop: 11/09/18 15:28 Folic Acid (Folic Acid -) 1 mg PO DAILY [facility] Last Admin: 11/06/18 09:41 Dose: 1 mg Sodium Chloride (Normal Saline -) 1,000 mls @ 70 mls/hr IV ASDIR [facility] Lactulose (Cephulac (Oral Use)) 20 gm PO BID [facility] Lorazepam (Ativan -) 1 mg PO Q8H PRN PRN Reason: AGITATION Last Admin: 11/06/18 02:40 Dose: 1 mg Metoprolol Succinate (Toprol Xl -) 100 mg PO BID [facility] Last Admin: 11/06/18 09:42 Dose: 100 mg Multivitamins/Minerals/Vitamin C (Tab-A-Vit -) 1 tab PO DAILY [facility] Last Admin: 11/06/18 09:43 Dose: 1 tab Non-Formulary Medication (Lactulose) 20 ml PO BID [facility] Pantoprazole Sodium (Protonix -) 40 mg PO DAILY [facility] Last Admin: 11/06/18 09:42 Dose: 40 mg Quetiapine Fumarate (Seroquel -) 12.5 mg PO HS [facility] Last Admin: 11/05/18 22:24 Dose: 12.5 mg Rosuvastatin Calcium (Crestor -) 10 mg PO DAILY [facility] Last Admin: 11/06/18 09:42 Dose: 10 mg Sertraline HCl (Zoloft -) 25 mg PO DAILY [facility] Last Admin: 11/06/18 09:39 Dose: Not Given Thiamine HCl (Vitamin B1 -) 100 mg PO DAILY [facility] - Objective Vital Signs: Vital Signs Temperature 98.5 F 11/06/18 09:00 Pulse Rate 108 H 11/06/18 09:00 Respiratory Rate 20 11/06/18 09:00 Blood Pressure 136/69 11/06/18 09:00 O2 Sat by Pulse Oximetry (%) 96 11/06/18 09:00 Constitutional: Yes: Mild Distress Eyes: Yes: WNL HENT: Yes: WNL Neck: Yes: WNL Cardiovascular: Yes: Regular Rate and Rhythm Respiratory: Yes: WNL Gastrointestinal: Yes: Soft Genitourinary: Yes: WNL Musculoskeletal: Yes: WNL Edema: No Integumentary: Yes: WNL Wound/Incision: Yes: Clean/Dry Neurological: Yes: Other ...Motor Strength: WNL Psychiatric: Yes: Other Labs: CBC, BMP 11/06/18 06:23 11/06/18 06:23 INR, PTT INR 1.13 (0.83-1.09) H 11/05/18 07:45 Problem List - Problems (1) Alcohol intoxication Code(s): F10.929 - ALCOHOL USE, UNSPECIFIED WITH INTOXICATION, UNSPECIFIED Qualifiers: Complication of substance-induced condition: uncomplicated Qualified Code(s ): F10.920 - Alcohol use, unspecified with intoxication, uncomplicated (2) Alcoholic fatty liver Code(s): K70.0 - ALCOHOLIC FATTY LIVER (3) Atrial fibrillation Code(s): I48.91 - UNSPECIFIED ATRIAL FIBRILLATION Qualifiers: Atrial fibrillation type: chronic Qualified Code(s): I48.2 - Chronic atrial fibrillation (4) CKD (chronic kidney disease) Code(s): N18.9 - CHRONIC KIDNEY DISEASE, UNSPECIFIED (5) Rhabdomyolysis Code(s): M62.82 - RHABDOMYOLYSIS Qualifiers: Rhabdomyolysis type: non-traumatic Qualified Code(s): M62.82 - Rhabdomyolysis (6) T2DM (type 2 diabetes mellitus) Code(s): E11.9 - TYPE 2 DIABETES MELLITUS WITHOUT COMPLICATIONS Assessment/Plan LIBRIUM PROTOCOL DETOX AND PSYCHIATRY CONSULTS NO SUICIDAL THOUGHTS 1:1 OBSERVATION IVF, MONITOR RENAL FUNCTION PT EVAL
[2018-11-06] MEDS: SODIUM CHLORIDE 1,000 ML IV SCH (13:57)
[2018-11-06] MEDS: THIAMINE HCL 100 MG TABLET (FP) PO SCH (13:58)
--- NOTE | 2018-11-06 15:43 | EKG ---
Test Reason : Blood Pressure : / mmHG Vent. Rate : 124 BPM Atrial Rate : 125 BPM P-R Int : 000 ms QRS Dur : 090 ms QT Int : 350 ms P-R-T Axes : 000 121 116 degrees QTc Int : 502 ms ATRIAL FIBRILLATION WITH RAPID VENTRICULAR RESPONSE LEFT POSTERIOR FASCICULAR BLOCK NONSPECIFIC ST AND T WAVE ABNORMALITY ABNORMAL ECG WHEN COMPARED WITH ECG OF 05-NOV-2018 08:15, NO SIGNIFICANT CHANGE WAS FOUND Confirmed by RENEA NUÑEZ, LUTHER ([id number]) on 11/06/2018 3:43:41 PM Referred By: Confirmed By:LUTHER MEIER MD
[2018-11-06] MEDS: QUEtiapine FUMARATE 25 MG TABLET (FP) PO SCH (22:35)
[2018-11-07] MEDS: chlordiazePOXIDE HCL 25 MG CAPSULE PO SCH ×3 (00:35→11:42)
[2018-11-07] MEDS: SERTRALINE HCL 25 MG TABLET (FP) PO SCH (09:47)
[2018-11-07] MEDS: FOLIC ACID 1 MG TABLET (FP) PO SCH (09:47)
[2018-11-07] MEDS: ASPIRIN 81 MG CHEWABLE TABLETS PO SCH (09:49)
[2018-11-07] MEDS: THIAMINE HCL 100 MG TABLET (FP) PO SCH (09:49)
[2018-11-07] MEDS: MULTIVITAMINS (DAILY MVI) TABLET (FP) PO SCH (09:49)
[2018-11-07] MEDS: PANTOPRAZOLE 40 MG TABLET (FP) PO SCH (09:49)
[2018-11-07] MEDS: CALCIUM 500MG/VIT-D 200 UNITS COMBO TABLET (FP) PO SCH (09:49)
[2018-11-07] MEDS: ROSUVASTATIN CA 10 MG TABLET (FP) PO SCH (09:50)
[2018-11-07] MEDS: LACTULOSE PO SCH ×2 (10:29→22:30)
[2018-11-07] MEDS: SODIUM CHLORIDE 1,000 ML IV SCH (11:41)
--- NOTE | 2018-11-07 11:54 | PN ---
Progress Note, Physician Chief Complaint: AWAKE ALERT FEELING BETTER - Current Medication List Current Medications: Active Medications Acetaminophen (Tylenol -) 650 mg PO Q6H PRN PRN Reason: PAIN LEVEL 1-5 Last Admin: 11/06/18 13:54 Dose: 650 mg Aspirin (Asa -) 81 mg PO DAILY [facility] Last Admin: 11/07/18 09:49 Dose: 81 mg Calcium Carbonate/Cholecalciferol (Os-Hardik 500+D -) 2 tab PO DAILY [facility] Last Admin: 11/07/18 09:49 Dose: 2 tab Chlordiazepoxide HCl (Librium -) 25 mg PO Q6HPO [facility] Stop: 11/07/18 17:59 Last Admin: 11/07/18 11:42 Dose: 25 mg Chlordiazepoxide HCl (Librium -) 10 mg PO Q6HPO [facility] Stop: 11/08/18 17:59 Chlordiazepoxide HCl (Librium -) 10 mg PO BID [facility] Stop: 11/09/18 21:59 Chlordiazepoxide HCl (Librium -) 10 mg PO ONCE ONE Stop: 11/09/18 15:28 Folic Acid (Folic Acid -) 1 mg PO DAILY [facility] Last Admin: 11/07/18 09:47 Dose: 1 mg Sodium Chloride (Normal Saline -) 1,000 mls @ 70 mls/hr IV ASDIR [facility] Last Admin: 11/07/18 11:41 Dose: 70 mls/hr Lactulose (Cephulac (Oral Use)) 20 gm PO BID [facility] Lorazepam (Ativan -) 1 mg PO Q8H PRN PRN Reason: AGITATION Last Admin: 11/06/18 22:35 Dose: 1 mg Metoprolol Succinate (Toprol Xl -) 100 mg PO BID [facility] Last Admin: 11/07/18 09:50 Dose: 100 mg Multivitamins/Minerals/Vitamin C (Tab-A-Vit -) 1 tab PO DAILY [facility] Last Admin: 11/07/18 09:49 Dose: 1 tab Non-Formulary Medication (Lactulose) 20 ml PO BID [facility] Pantoprazole Sodium (Protonix -) 40 mg PO DAILY [facility] Last Admin: 11/07/18 09:49 Dose: 40 mg Quetiapine Fumarate (Seroquel -) 12.5 mg PO HS [facility] Last Admin: 11/06/18 22:35 Dose: 12.5 mg Rosuvastatin Calcium (Crestor -) 10 mg PO DAILY [facility] Last Admin: 11/07/18 09:50 Dose: 10 mg Sertraline HCl (Zoloft -) 25 mg PO DAILY [facility] Last Admin: 11/07/18 09:47 Dose: Not Given Thiamine HCl (Vitamin B1 -) 100 mg PO DAILY [facility] Last Admin: 11/07/18 09:49 Dose: 100 mg - Objective Vital Signs: Vital Signs Temperature 98.2 F 11/07/18 08:31 Pulse Rate 114 H 11/07/18 08:31 Respiratory Rate 20 11/07/18 08:31 Blood Pressure 98/60 11/07/18 08:31 O2 Sat by Pulse Oximetry (%) 97 11/07/18 08:31 Constitutional: Yes: Mild Distress Eyes: Yes: WNL HENT: Yes: WNL Neck: Yes: WNL Cardiovascular: Yes: Regular Rate and Rhythm Respiratory: Yes: WNL Gastrointestinal: Yes: WNL Genitourinary: Yes: WNL Musculoskeletal: Yes: Muscle Pain, Muscle Weakness Edema: No Peripheral Pulses WNL: Yes Integumentary: Yes: WNL Wound/Incision: Yes: Clean/Dry Neurological: Yes: Other Psychiatric: Yes: Other Labs: CBC, BMP 11/06/18 06:23 11/06/18 06:23 INR, PTT INR 1.13 (0.83-1.09) H 11/05/18 07:45 Problem List - Problems (1) Alcohol intoxication Code(s): F10.929 - ALCOHOL USE, UNSPECIFIED WITH INTOXICATION, UNSPECIFIED Qualifiers: Complication of substance-induced condition: uncomplicated Qualified Code(s ): F10.920 - Alcohol use, unspecified with intoxication, uncomplicated (2) Alcoholic fatty liver Code(s): K70.0 - ALCOHOLIC FATTY LIVER (3) Atrial fibrillation Code(s): I48.91 - UNSPECIFIED ATRIAL FIBRILLATION Qualifiers: Atrial fibrillation type: chronic Qualified Code(s): I48.2 - Chronic atrial fibrillation (4) CKD (chronic kidney disease) Code(s): N18.9 - CHRONIC KIDNEY DISEASE, UNSPECIFIED (5) Rhabdomyolysis Code(s): M62.82 - RHABDOMYOLYSIS Qualifiers: Rhabdomyolysis type: non-traumatic Qualified Code(s): M62.82 - Rhabdomyolysis (6) T2DM (type 2 diabetes mellitus) Code(s): E11.9 - TYPE 2 DIABETES MELLITUS WITHOUT COMPLICATIONS Assessment/Plan LIBRIUM PROTOCOL DETOX AND PSYCHIATRY CONSULTS NO SUICIDAL THOUGHTS 1:1 OBSERVATION IVF, MONITOR RENAL FUNCTION PT EVAL WILL NEED DETOX CENTER PLACEMENT
--- NOTE | 2018-11-07 11:56 | PN ---
Progress Note, Physician - Current Medication List Current Medications: Active Medications Acetaminophen (Tylenol -) 650 mg PO Q6H PRN PRN Reason: PAIN LEVEL 1-5 Last Admin: 11/06/18 13:54 Dose: 650 mg Aspirin (Asa -) 81 mg PO DAILY [facility] Last Admin: 11/07/18 09:49 Dose: 81 mg Calcium Carbonate/Cholecalciferol (Os-Hardik 500+D -) 2 tab PO DAILY [facility] Last Admin: 11/07/18 09:49 Dose: 2 tab Chlordiazepoxide HCl (Librium -) 25 mg PO Q6HPO [facility] Stop: 11/07/18 17:59 Last Admin: 11/07/18 11:42 Dose: 25 mg Chlordiazepoxide HCl (Librium -) 10 mg PO Q6HPO [facility] Stop: 11/08/18 17:59 Chlordiazepoxide HCl (Librium -) 10 mg PO BID [facility] Stop: 11/09/18 21:59 Chlordiazepoxide HCl (Librium -) 10 mg PO ONCE ONE Stop: 11/09/18 15:28 Folic Acid (Folic Acid -) 1 mg PO DAILY [facility] Last Admin: 11/07/18 09:47 Dose: 1 mg Sodium Chloride (Normal Saline -) 1,000 mls @ 70 mls/hr IV ASDIR [facility] Last Admin: 11/07/18 11:41 Dose: 70 mls/hr Lactulose (Cephulac (Oral Use)) 20 gm PO BID [facility] Lorazepam (Ativan -) 1 mg PO Q8H PRN PRN Reason: AGITATION Last Admin: 11/06/18 22:35 Dose: 1 mg Metoprolol Succinate (Toprol Xl -) 100 mg PO BID [facility] Last Admin: 11/07/18 09:50 Dose: 100 mg Multivitamins/Minerals/Vitamin C (Tab-A-Vit -) 1 tab PO DAILY [facility] Last Admin: 11/07/18 09:49 Dose: 1 tab Non-Formulary Medication (Lactulose) 20 ml PO BID [facility] Pantoprazole Sodium (Protonix -) 40 mg PO DAILY [facility] Last Admin: 11/07/18 09:49 Dose: 40 mg Quetiapine Fumarate (Seroquel -) 12.5 mg PO HS [facility] Last Admin: 11/06/18 22:35 Dose: 12.5 mg Rosuvastatin Calcium (Crestor -) 10 mg PO DAILY [facility] Last Admin: 11/07/18 09:50 Dose: 10 mg Sertraline HCl (Zoloft -) 25 mg PO DAILY [facility] Last Admin: 11/07/18 09:47 Dose: Not Given Thiamine HCl (Vitamin B1 -) 100 mg PO DAILY [facility] Last Admin: 11/07/18 09:49 Dose: 100 mg - Objective Vital Signs: Vital Signs Temperature 98.2 F 11/07/18 08:31 Pulse Rate 114 H 11/07/18 08:31 Respiratory Rate 20 11/07/18 08:31 Blood Pressure 98/60 11/07/18 08:31 O2 Sat by Pulse Oximetry (%) 97 11/07/18 08:31 Labs: CBC, BMP 11/06/18 06:23 11/06/18 06:23 INR, PTT INR 1.13 (0.83-1.09) H 11/05/18 07:45 Problem List - Problems (1) Alcohol intoxication Code(s): F10.929 - ALCOHOL USE, UNSPECIFIED WITH INTOXICATION, UNSPECIFIED Qualifiers: Complication of substance-induced condition: uncomplicated Qualified Code(s ): F10.920 - Alcohol use, unspecified with intoxication, uncomplicated (2) Alcoholic fatty liver Code(s): K70.0 - ALCOHOLIC FATTY LIVER (3) Atrial fibrillation Code(s): I48.91 - UNSPECIFIED ATRIAL FIBRILLATION Qualifiers: Atrial fibrillation type: chronic Qualified Code(s): I48.2 - Chronic atrial fibrillation (4) CKD (chronic kidney disease) Code(s): N18.9 - CHRONIC KIDNEY DISEASE, UNSPECIFIED (5) Rhabdomyolysis Code(s): M62.82 - RHABDOMYOLYSIS Qualifiers: Rhabdomyolysis type: non-traumatic Qualified Code(s): M62.82 - Rhabdomyolysis (6) T2DM (type 2 diabetes mellitus) Code(s): E11.9 - TYPE 2 DIABETES MELLITUS WITHOUT COMPLICATIONS
[2018-11-07] MEDS ORDERED: FUROSEMIDE 40 MG TABLET (FP) PO ONE (14:11)
--- NOTE | 2018-11-07 14:11 | PN ---
Progress Note, Physician History of Present Illness: Pt seen and examined at bedside. She is awake and appears comfortable. - Current Medication List Current Medications: Active Medications Acetaminophen (Tylenol -) 650 mg PO Q6H PRN PRN Reason: PAIN LEVEL 1-5 Last Admin: 11/06/18 13:54 Dose: 650 mg Aspirin (Asa -) 81 mg PO DAILY [facility] Last Admin: 11/07/18 09:49 Dose: 81 mg Calcium Carbonate/Cholecalciferol (Os-Hardik 500+D -) 2 tab PO DAILY [facility] Last Admin: 11/07/18 09:49 Dose: 2 tab Chlordiazepoxide HCl (Librium -) 25 mg PO Q6HPO [facility] Stop: 11/07/18 17:59 Last Admin: 11/07/18 11:42 Dose: 25 mg Chlordiazepoxide HCl (Librium -) 10 mg PO Q6HPO [facility] Stop: 11/08/18 17:59 Chlordiazepoxide HCl (Librium -) 10 mg PO BID [facility] Stop: 11/09/18 21:59 Chlordiazepoxide HCl (Librium -) 10 mg PO ONCE ONE Stop: 11/09/18 15:28 Folic Acid (Folic Acid -) 1 mg PO DAILY [facility] Last Admin: 11/07/18 09:47 Dose: 1 mg Sodium Chloride (Normal Saline -) 1,000 mls @ 70 mls/hr IV ASDIR [facility] Last Admin: 11/07/18 11:41 Dose: 70 mls/hr Lactulose (Cephulac (Oral Use)) 20 gm PO BID [facility] Lorazepam (Ativan -) 1 mg PO Q8H PRN PRN Reason: AGITATION Last Admin: 11/06/18 22:35 Dose: 1 mg Metoprolol Succinate (Toprol Xl -) 100 mg PO BID [facility] Last Admin: 11/07/18 09:50 Dose: 100 mg Multivitamins/Minerals/Vitamin C (Tab-A-Vit -) 1 tab PO DAILY [facility] Last Admin: 11/07/18 09:49 Dose: 1 tab Non-Formulary Medication (Lactulose) 20 ml PO BID [facility] Pantoprazole Sodium (Protonix -) 40 mg PO DAILY [facility] Last Admin: 11/07/18 09:49 Dose: 40 mg Quetiapine Fumarate (Seroquel -) 12.5 mg PO HS [facility] Last Admin: 11/06/18 22:35 Dose: 12.5 mg Rosuvastatin Calcium (Crestor -) 10 mg PO DAILY [facility] Last Admin: 11/07/18 09:50 Dose: 10 mg Sertraline HCl (Zoloft -) 25 mg PO DAILY [facility] Last Admin: 11/07/18 09:47 Dose: Not Given Thiamine HCl (Vitamin B1 -) 100 mg PO DAILY [facility] Last Admin: 11/07/18 09:49 Dose: 100 mg - Objective Vital Signs: Vital Signs Temperature 98.2 F 11/07/18 08:31 Pulse Rate 114 H 11/07/18 08:31 Respiratory Rate 20 11/07/18 08:31 Blood Pressure 98/60 11/07/18 08:31 O2 Sat by Pulse Oximetry (%) 97 11/07/18 08:31 Constitutional: Yes: Calm Eyes: Yes: Conjunctiva Clear HENT: Yes: Atraumatic Neck: Yes: Supple Cardiovascular: Yes: S1, S2 Respiratory: Yes: CTA Bilaterally Gastrointestinal: Yes: WNL Genitourinary: Yes: WNL Edema: Yes Edema: LLE: 1+, RLE: 1+ Neurological: Yes: Oriented Psychiatric: Yes: Oriented Labs: CBC, BMP 11/06/18 06:23 11/06/18 06:23 INR, PTT INR 1.13 (0.83-1.09) H 11/05/18 07:45 Problem List - Problems (1) CKD (chronic kidney disease) Code(s): N18.9 - CHRONIC KIDNEY DISEASE, UNSPECIFIED (2) Rhabdomyolysis Code(s): M62.82 - RHABDOMYOLYSIS Qualifiers: Rhabdomyolysis type: non-traumatic Qualified Code(s): M62.82 - Rhabdomyolysis Assessment/Plan Current Medications Generic Name Dose Route Start Last Admin Trade Name Freq PRN Reason Stop Dose Admin Acetaminophen 650 mg 11/05/18 12:12 11/06/18 13:54 Tylenol - PO 650 mg Q6H PRN Administration PAIN LEVEL 1-5 Aspirin 81 mg 11/06/18 10:00 11/07/18 09:49 Asa - PO 81 mg DAILY [facility] Administration Calcium Carbonate/Cholecalciferol 2 tab 11/05/18 18:15 11/07/18 09:49 Os-Hardik 500+D - PO 2 tab DAILY [facility] Administration Chlordiazepoxide HCl 25 mg 11/06/18 18:00 11/07/18 11:42 Librium - PO 11/07/18 17:59 25 mg Q6HPO [facility] Administration Chlordiazepoxide HCl 10 mg 11/07/18 18:00 Librium - PO 11/08/18 17:59 Q6HPO [facility] Chlordiazepoxide HCl 10 mg 11/08/18 22:00 Librium - PO 11/09/18 21:59 BID [facility] Chlordiazepoxide HCl 10 mg 11/09/18 15:27 Librium - PO 11/09/18 15:28 ONCE ONE Folic Acid 1 mg 11/06/18 10:00 11/07/18 09:47 Folic Acid - PO 1 mg DAILY [facility] Administration Sodium Chloride 1,000 mls @ 70 mls/hr 11/06/18 11:18 11/07/18 11:41 Normal Saline - IV 70 mls/hr ASDIR [facility] Administration Lactulose 20 gm 11/05/18 22:00 Cephulac (Oral Use) PO BID LESLY Lorazepam 1 mg 11/05/18 23:34 11/06/18 22:35 Ativan - PO 1 mg Q8H PRN Administration AGITATION Metoprolol Succinate 100 mg 11/05/18 22:00 11/07/18 09:50 Toprol Xl - PO 100 mg BID LESLY Administration Multivitamins/Minerals/Vitamin C 1 tab 11/06/18 10:00 11/07/18 09:49 Tab-A-Vit - PO 1 tab DAILY LESLY Administration Non-Formulary Medication 20 ml 11/05/18 22:00 Lactulose PO BID LESLY Pantoprazole Sodium 40 mg 11/06/18 10:00 11/07/18 09:49 Protonix - PO 40 mg DAILY LESLY Administration Quetiapine Fumarate 12.5 mg 11/05/18 22:00 11/06/18 22:35 Seroquel - PO 12.5 mg HS LESLY Administration Rosuvastatin Calcium 10 mg 11/06/18 10:00 11/07/18 09:50 Crestor - PO 10 mg DAILY LESLY Administration Sertraline HCl 25 mg 11/06/18 10:00 11/07/18 09:47 Zoloft - PO Not Given DAILY LESLY Thiamine HCl 100 mg 11/06/18 10:00 11/07/18 09:49 Vitamin B1 - PO 100 mg DAILY LESLY Administration Impression 1. CKD 2. etoh abuse 3. hypocalcemia 4. paroxysmal A fib 5. HTN 6. HLD 7. DM 8. Ulcerative colitis Plan - cpk improving - will stop fluids as she appears overloaded - will give a dose of lasix - repeat labs in am - bnp elevated - repeat labs and electrolytes
[2018-11-07] MEDS ORDERED: POTASSIUM CHLORIDE TABS 20 MEQ TABLET.ER (FP) PO ONE (15:10)
[2018-11-07] MEDS ORDERED: chlordiazePOXIDE 5 MG CAPSULE ONE ×2 (16:53→23:42)
[2018-11-07] MEDS: chlordiazePOXIDE HCL 10 MG CAPSULE PO SCH ×2 (17:52→23:57)
[2018-11-07] MEDS: MAGNESIUM OXIDE 400 MG TABLET (FP) PO ONE (17:52)
[2018-11-07] MEDS: QUEtiapine FUMARATE 25 MG TABLET (FP) PO SCH (21:18)
[2018-11-07] MEDS: LORazepam 1 MG TABLET PO PRN (21:19)
[2018-11-08] MEDS ORDERED: chlordiazePOXIDE 5 MG CAPSULE ONE ×4 (03:26→21:17)
[2018-11-08] MEDS: chlordiazePOXIDE HCL 10 MG CAPSULE PO SCH ×3 (06:28→21:25)
[2018-11-08 09:01] LABS: BILIRUBIN,TOTAL 1.1 mg/dL (0.2-1); MAGNESIUM 1.4 mg/dL (1.8-2.4); POTASSIUM 3.4 mmol/L (3.5-5.1); TOT PROT 5.9 g/dl (6.4-8.2)
[2018-11-08] MEDS: THIAMINE HCL 100 MG TABLET (FP) PO SCH (09:24)
[2018-11-08] MEDS: ASPIRIN 81 MG CHEWABLE TABLETS PO SCH (09:25)
[2018-11-08] MEDS: SERTRALINE HCL 25 MG TABLET (FP) PO SCH (09:25)
[2018-11-08] MEDS: CALCIUM 500MG/VIT-D 200 UNITS COMBO TABLET (FP) PO SCH (09:25)
[2018-11-08] MEDS: FOLIC ACID 1 MG TABLET (FP) PO SCH (09:25)
[2018-11-08] MEDS: MULTIVITAMINS (DAILY MVI) TABLET (FP) PO SCH (09:25)
[2018-11-08] MEDS: PANTOPRAZOLE 40 MG TABLET (FP) PO SCH (09:25)
[2018-11-08] MEDS: ROSUVASTATIN CA 10 MG TABLET (FP) PO SCH (09:25)
[2018-11-08] MEDS ORDERED: POTASSIUM CHLORIDE TABS 20 MEQ TABLET.ER (FP) PO ONE (11:16)
[2018-11-08] MEDS: LORazepam 1 MG TABLET PO PRN (12:37)
[2018-11-08] MEDS: LACTULOSE 20 GM/30 ML UDC (FOR ORAL USE ONLY) PO SCH ×3 (12:40→21:29)
[2018-11-08] MEDS ORDERED: MAGNESIUM SULF 50% (8.12 MEQ/2 ML-1 GM VIAL) IVPB ONE (13:31)
--- NOTE | 2018-11-08 13:31 | PN ---
Progress Note, Physician History of Present Illness: Pt seen and examined at bedside. She is awake and alert. She denies shortness of breath. - Current Medication List Current Medications: Active Medications Acetaminophen (Tylenol -) 650 mg PO Q6H PRN PRN Reason: PAIN LEVEL 1-5 Last Admin: 11/06/18 13:54 Dose: 650 mg Aspirin (Asa -) 81 mg PO DAILY [facility] Last Admin: 11/08/18 09:25 Dose: 81 mg Calcium Carbonate/Cholecalciferol (Os-Hardik 500+D -) 2 tab PO DAILY [facility] Last Admin: 11/08/18 09:25 Dose: 2 tab Chlordiazepoxide HCl (Librium -) 10 mg PO Q6HPO [facility] Stop: 11/08/18 17:59 Last Admin: 11/08/18 12:38 Dose: 10 mg Chlordiazepoxide HCl (Librium -) 10 mg PO BID [facility] Stop: 11/09/18 21:59 Chlordiazepoxide HCl (Librium -) 10 mg PO ONCE ONE Stop: 11/09/18 15:28 Folic Acid (Folic Acid -) 1 mg PO DAILY [facility] Last Admin: 11/08/18 09:25 Dose: 1 mg Lactulose (Cephulac (Oral Use)) 20 gm PO BID [facility] Last Admin: 11/08/18 12:40 Dose: 20 gm Lorazepam (Ativan -) 1 mg PO Q8H PRN PRN Reason: AGITATION Last Admin: 11/08/18 12:37 Dose: 1 mg Metoprolol Succinate (Toprol Xl -) 100 mg PO BID [facility] Last Admin: 11/08/18 09:25 Dose: 100 mg Multivitamins/Minerals/Vitamin C (Tab-A-Vit -) 1 tab PO DAILY [facility] Last Admin: 11/08/18 09:25 Dose: 1 tab Pantoprazole Sodium (Protonix -) 40 mg PO DAILY [facility] Last Admin: 11/08/18 09:25 Dose: 40 mg Quetiapine Fumarate (Seroquel -) 12.5 mg PO HS [facility] Last Admin: 11/07/18 21:18 Dose: 12.5 mg Rosuvastatin Calcium (Crestor -) 10 mg PO DAILY [facility] Last Admin: 11/08/18 09:25 Dose: 10 mg Sertraline HCl (Zoloft -) 25 mg PO DAILY [facility] Last Admin: 11/08/18 09:25 Dose: 25 mg Thiamine HCl (Vitamin B1 -) 100 mg PO DAILY [facility] Last Admin: 11/08/18 09:24 Dose: 100 mg - Objective Vital Signs: Vital Signs Temperature 97.6 F 11/08/18 08:08 Pulse Rate 90 11/08/18 08:08 Respiratory Rate 20 11/08/18 08:10 Blood Pressure 142/93 11/08/18 08:08 O2 Sat by Pulse Oximetry (%) 97 11/08/18 08:10 Constitutional: Yes: Calm Eyes: Yes: Conjunctiva Clear HENT: Yes: Atraumatic Neck: Yes: Supple Cardiovascular: Yes: S1, S2 Respiratory: Yes: CTA Bilaterally Gastrointestinal: Yes: Normal Bowel Sounds, Soft Genitourinary: Yes: WNL Musculoskeletal: Yes: WNL Edema: No Neurological: Yes: Oriented Psychiatric: Yes: Oriented Labs: CBC, BMP 11/06/18 06:23 11/08/18 06:36 INR, PTT INR 1.13 (0.83-1.09) H 11/05/18 07:45 Problem List - Problems (1) CKD (chronic kidney disease) Code(s): N18.9 - CHRONIC KIDNEY DISEASE, UNSPECIFIED (2) Rhabdomyolysis Code(s): M62.82 - RHABDOMYOLYSIS Qualifiers: Rhabdomyolysis type: non-traumatic Qualified Code(s): M62.82 - Rhabdomyolysis Assessment/Plan Current Medications Generic Name Dose Route Start Last Admin Trade Name Freq PRN Reason Stop Dose Admin Acetaminophen 650 mg 11/05/18 12:12 11/06/18 13:54 Tylenol - PO 650 mg Q6H PRN Administration PAIN LEVEL 1-5 Aspirin 81 mg 11/06/18 10:00 11/08/18 09:25 Asa - PO 81 mg DAILY [facility] Administration Calcium Carbonate/Cholecalciferol 2 tab 11/05/18 18:15 11/08/18 09:25 Os-Hardik 500+D - PO 2 tab DAILY [facility] Administration Chlordiazepoxide HCl 10 mg 11/07/18 18:00 11/08/18 12:38 Librium - PO 11/08/18 17:59 10 mg Q6HPO [facility] Administration Chlordiazepoxide HCl 10 mg 11/08/18 22:00 Librium - PO 11/09/18 21:59 BID [facility] Chlordiazepoxide HCl 10 mg 11/09/18 15:27 Librium - PO 11/09/18 15:28 ONCE ONE Folic Acid 1 mg 11/06/18 10:00 11/08/18 09:25 Folic Acid - PO 1 mg DAILY [facility] Administration Lactulose 20 gm 11/08/18 10:00 11/08/18 12:40 Cephulac (Oral Use) PO 20 gm BID [facility] Administration Lorazepam 1 mg 11/05/18 23:34 11/08/18 12:37 Ativan - PO 1 mg Q8H PRN Administration AGITATION Metoprolol Succinate 100 mg 11/05/18 22:00 11/08/18 09:25 Toprol Xl - PO 100 mg BID [facility] Administration Multivitamins/Minerals/Vitamin C 1 tab 11/06/18 10:00 11/08/18 09:25 Tab-A-Vit - PO 1 tab DAILY [facility] Administration Pantoprazole Sodium 40 mg 11/06/18 10:00 11/08/18 09:25 Protonix - PO 40 mg DAILY [facility] Administration Quetiapine Fumarate 12.5 mg 11/05/18 22:00 11/07/18 21:18 Seroquel - PO 12.5 mg HS [facility] Administration Rosuvastatin Calcium 10 mg 11/06/18 10:00 11/08/18 09:25 Crestor - PO 10 mg DAILY [facility] Administration Sertraline HCl 25 mg 11/06/18 10:00 11/08/18 09:25 Zoloft - PO 25 mg DAILY [facility] Administration Thiamine HCl 100 mg 11/06/18 10:00 11/08/18 09:24 Vitamin B1 - PO 100 mg DAILY [facility] Administration Laboratory Tests 11/08/18 06:36 Potassium 3.4 L Magnesium 1.4 L Laboratory Tests 11/08/18 06:36 Creatine Kinase 204 H Impression 1. CKD 2. etoh abuse 3. hypocalcemia 4. paroxysmal A fib 5. HTN 6. HLD 7. DM 8. Ulcerative colitis Plan - replace potassium - replace mag - tolerating diet, off of fluids - cpk improved
--- NOTE | 2018-11-08 15:34 | PN ---
Progress Note, Physician Chief Complaint: ETOH Abuse Alcoholic Fatty Liver History of Present Illness: Previous notes and events reviewed awake and alert NAD complain of neck pain - Current Medication List Current Medications: Active Medications Acetaminophen (Tylenol -) 650 mg PO Q6H PRN PRN Reason: PAIN LEVEL 1-5 Last Admin: 11/06/18 13:54 Dose: 650 mg Aspirin (Asa -) 81 mg PO DAILY [facility] Last Admin: 11/08/18 09:25 Dose: 81 mg Calcium Carbonate/Cholecalciferol (Os-Hardik 500+D -) 2 tab PO DAILY [facility] Last Admin: 11/08/18 09:25 Dose: 2 tab Chlordiazepoxide HCl (Librium -) 10 mg PO Q6HPO [facility] Stop: 11/08/18 17:59 Last Admin: 11/08/18 12:38 Dose: 10 mg Chlordiazepoxide HCl (Librium -) 10 mg PO BID [facility] Stop: 11/09/18 21:59 Chlordiazepoxide HCl (Librium -) 10 mg PO ONCE ONE Stop: 11/09/18 15:28 Folic Acid (Folic Acid -) 1 mg PO DAILY [facility] Last Admin: 11/08/18 09:25 Dose: 1 mg Lactulose (Cephulac (Oral Use)) 20 gm PO BID [facility] Last Admin: 11/08/18 12:40 Dose: 20 gm Lorazepam (Ativan -) 1 mg PO Q8H PRN PRN Reason: AGITATION Last Admin: 11/08/18 12:37 Dose: 1 mg Magnesium Oxide (Mag-Ox -) 400 mg PO BID [facility] Metoprolol Succinate (Toprol Xl -) 100 mg PO BID [facility] Last Admin: 11/08/18 09:25 Dose: 100 mg Multivitamins/Minerals/Vitamin C (Tab-A-Vit -) 1 tab PO DAILY [facility] Last Admin: 11/08/18 09:25 Dose: 1 tab Pantoprazole Sodium (Protonix -) 40 mg PO DAILY [facility] Last Admin: 11/08/18 09:25 Dose: 40 mg Quetiapine Fumarate (Seroquel -) 12.5 mg PO HS [facility] Last Admin: 11/07/18 21:18 Dose: 12.5 mg Rosuvastatin Calcium (Crestor -) 10 mg PO DAILY [facility] Last Admin: 11/08/18 09:25 Dose: 10 mg Sertraline HCl (Zoloft -) 25 mg PO DAILY [facility] Last Admin: 11/08/18 09:25 Dose: 25 mg Thiamine HCl (Vitamin B1 -) 100 mg PO DAILY [facility] Last Admin: 11/08/18 09:24 Dose: 100 mg - Objective Vital Signs: Vital Signs Temperature 97.8 F 11/08/18 14:00 Pulse Rate 102 H 11/08/18 14:00 Respiratory Rate 20 11/08/18 14:00 Blood Pressure 139/96 11/08/18 14:00 O2 Sat by Pulse Oximetry (%) 97 11/08/18 08:10 Constitutional: Yes: No Distress, Calm Eyes: Yes: Conjunctiva Clear HENT: Yes: Atraumatic Cardiovascular: Yes: Pulse Irregular Respiratory: Yes: Regular, CTA Bilaterally Gastrointestinal: Yes: Normal Bowel Sounds, Soft Musculoskeletal: Yes: Muscle Weakness Extremities: Yes: WNL Edema: No Neurological: Yes: Alert, Oriented Psychiatric: Yes: Alert, Oriented Labs: CBC, BMP 11/06/18 06:23 11/08/18 06:36 INR, PTT INR 1.13 (0.83-1.09) H 11/05/18 07:45 Problem List - Problems (1) Atrial fibrillation Assessment/Plan: -cardiology on board -Aspirin and Metoprolol Code(s): I48.91 - UNSPECIFIED ATRIAL FIBRILLATION Qualifiers: Atrial fibrillation type: chronic Qualified Code(s): I48.2 - Chronic atrial fibrillation (2) Rhabdomyolysis Assessment/Plan: -CK 204 -IV hydration Code(s): M62.82 - RHABDOMYOLYSIS Qualifiers: Rhabdomyolysis type: non-traumatic Qualified Code(s): M62.82 - Rhabdomyolysis (3) Abdominal pain Assessment/Plan: -Zofran prn for nausea -Abdominal US shows fatty infiltration of liver Code(s): R10.9 - UNSPECIFIED ABDOMINAL PAIN Qualifiers: Abdominal location: generalized Qualified Code(s): R10.84 - Generalized abdominal pain (4) Alcohol dependence Assessment/Plan: -consult for Dr Bishop -Librglenn taper -psych consult -fall precaution -Thiamine, Folic acid, MVI -Detox placement for discharge Code(s): F10.20 - ALCOHOL DEPENDENCE, UNCOMPLICATED Qualifiers: Substance use status: unspecified alcohol-induced disorder Qualified Code(s ): F10.29 - Alcohol dependence with unspecified alcohol-induced disorder (5) Depression Assessment/Plan: -psych consult -Zoloft Code(s): F32.9 - MAJOR DEPRESSIVE DISORDER, SINGLE EPISODE, UNSPECIFIED (6) HTN (hypertension) Assessment/Plan: -low Na diet Code(s): I10 - ESSENTIAL (PRIMARY) HYPERTENSION Assessment/Plan see problem list dvt ppx detox placement for discharge
[2018-11-08] MEDS: MAGNESIUM OXIDE 400 MG TABLET (FP) PO ONE (17:22)
[2018-11-08] MEDS: MAGNESIUM OXIDE 400 MG TABLET (FP) PO SCH ×2 (17:23→21:25)
[2018-11-08] MEDS: IBUPROFEN 400 MG TABLET (FP) PO PRN (17:23)
[2018-11-08] MEDS: QUEtiapine FUMARATE 25 MG TABLET (FP) PO SCH (21:25)
[2018-11-09] MEDS: IBUPROFEN 400 MG TABLET (FP) PO PRN ×3 (00:51→22:36)
[2018-11-09 07:44] LABS: HEMATOCRIT 30.4 % (32.4-45.2); HEMOGLOBIN 9.9 GM/dL (10.7-15.3); MCH 28.7 pg (25.7-33.7); MCHC 32.5 g/dl (32.0-36.0); MEAN CELL VOLUME 88.2 fl (80-96); PLATELET COUNT 100 K/MM3 (134-434); RBC 3.45 M/mm3 (3.60-5.2); RDW 15.8 % (11.6-15.6); WHITE BLOOD COUNT 5.9 K/mm3 (4.0-10.0)
[2018-11-09 08:26] LABS: ALBUMIN 2.8 g/dl (3.4-5.0); BLOOD UREA NITROGEN 14.7 mg/dL (7-18); CALCIUM 8.2 mg/dL (8.5-10.1); CREATININE 0.9 mg/dL (0.55-1.3); POTASSIUM 3.7 mmol/L (3.5-5.1); TOT PROT 5.5 g/dl (6.4-8.2)
--- NOTE | 2018-11-09 09:04 | PN ---
Progress Note, Physician Chief Complaint: ETOH abuse Hepatic encephalopathy Fall Rhabdomyolysis Hypokalemia Dehydration History of Present Illness: NAD awaiting bed at detox rehab feels anxious - Current Medication List Current Medications: Active Medications Acetaminophen (Tylenol -) 650 mg PO Q6H PRN PRN Reason: PAIN LEVEL 1-5 Last Admin: 11/06/18 13:54 Dose: 650 mg Aspirin (Asa -) 81 mg PO DAILY [facility] Last Admin: 11/08/18 09:25 Dose: 81 mg Calcium Carbonate/Cholecalciferol (Os-Hardik 500+D -) 2 tab PO DAILY [facility] Last Admin: 11/08/18 09:25 Dose: 2 tab Chlordiazepoxide HCl (Librium -) 10 mg PO BID [facility] Stop: 11/09/18 21:59 Last Admin: 11/08/18 21:25 Dose: 10 mg Chlordiazepoxide HCl (Librium -) 10 mg PO ONCE ONE Stop: 11/09/18 15:28 Folic Acid (Folic Acid -) 1 mg PO DAILY [facility] Last Admin: 11/08/18 09:25 Dose: 1 mg Ibuprofen (Motrin -) 400 mg PO Q6H PRN PRN Reason: PAIN LEVEL 4 - 6 Last Admin: 11/09/18 00:51 Dose: 400 mg Lactulose (Cephulac (Oral Use)) 20 gm PO BID [facility] Last Admin: 11/08/18 21:29 Dose: Not Given Magnesium Oxide (Mag-Ox -) 400 mg PO BID [facility] Last Admin: 11/08/18 21:25 Dose: 400 mg Metoprolol Succinate (Toprol Xl -) 100 mg PO BID [facility] Last Admin: 11/08/18 21:25 Dose: 100 mg Multivitamins/Minerals/Vitamin C (Tab-A-Vit -) 1 tab PO DAILY [facility] Last Admin: 11/08/18 09:25 Dose: 1 tab Pantoprazole Sodium (Protonix -) 40 mg PO DAILY [facility] Last Admin: 11/08/18 09:25 Dose: 40 mg Quetiapine Fumarate (Seroquel -) 12.[address] [facility] Last Admin: 11/08/18 21:25 Dose: 12.5 mg Rosuvastatin Calcium (Crestor -) 10 mg PO DAILY [facility] Last Admin: 11/08/18 09:25 Dose: 10 mg Sertraline HCl (Zoloft -) 25 mg PO DAILY [facility] Last Admin: 11/08/18 09:25 Dose: 25 mg Thiamine HCl (Vitamin B1 -) 100 mg PO DAILY [facility] Last Admin: 11/08/18 09:24 Dose: 100 mg - Objective Vital Signs: Vital Signs Temperature 97.7 F 11/09/18 06:00 Pulse Rate 95 H 11/09/18 06:00 Respiratory Rate 20 11/09/18 06:00 Blood Pressure 121/90 11/09/18 06:00 O2 Sat by Pulse Oximetry (%) 95 11/08/18 21:00 Constitutional: Yes: Well Nourished, No Distress, Calm Cardiovascular: Yes: Regular Rate and Rhythm Respiratory: Yes: Regular Gastrointestinal: Yes: WNL Musculoskeletal: Yes: Muscle Weakness Edema: No Peripheral Pulses WNL: Yes Neurological: Yes: Alert, Oriented Psychiatric: Yes: Alert, Oriented Labs: CBC, BMP 11/09/18 06:09 INR, PTT INR 1.13 (0.83-1.09) H 11/05/18 07:45 Problem List - Problems (1) Hypokalemia Assessment/Plan: -resolved Code(s): E87.6 - HYPOKALEMIA (2) Anxiety and depression Assessment/Plan: -Increase seroquel to 25 mg po BID Code(s): F41.9 - ANXIETY DISORDER, UNSPECIFIED; F32.9 - MAJOR DEPRESSIVE DISORDER, SINGLE EPISODE, UNSPECIFIED Assessment/Plan (1) Atrial fibrillation Assessment/Plan: -cardiology on board -Aspirin and Metoprolol Code(s): I48.91 - UNSPECIFIED ATRIAL FIBRILLATION Qualifiers: Atrial fibrillation type: chronic Qualified Code(s): I48.2 - Chronic atrial fibrillation (2) Rhabdomyolysis Assessment/Plan: -CK 204 -IV hydration Code(s): M62.82 - RHABDOMYOLYSIS Qualifiers: Rhabdomyolysis type: non-traumatic Qualified Code(s): M62.82 - Rhabdomyolysis (3) Abdominal pain Assessment/Plan: -Zofran prn for nausea -Abdominal US shows fatty infiltration of liver Code(s): R10.9 - UNSPECIFIED ABDOMINAL PAIN Qualifiers: Abdominal location: generalized Qualified Code(s): R10.84 - Generalized abdominal pain (4) Alcohol dependence Assessment/Plan: -consult for Dr Bishop -George taper -psych consult -fall precaution -Thiamine, Folic acid, MVI -Detox placement for discharge Code(s): F10.20 - ALCOHOL DEPENDENCE, UNCOMPLICATED Qualifiers: Substance use status: unspecified alcohol-induced disorder Qualified Code(s ): F10.29 - Alcohol dependence with unspecified alcohol-induced disorder (5) Depression Assessment/Plan: -psych consult -Has been refusing Zoloft Code(s): F32.9 - MAJOR DEPRESSIVE DISORDER, SINGLE EPISODE, UNSPECIFIED (6) HTN (hypertension) Assessment/Plan: -low Na diet Code(s): I10 - ESSENTIAL (PRIMARY) HYPERTENSION
[2018-11-09] MEDS ORDERED: chlordiazePOXIDE 5 MG CAPSULE ONE ×2 (09:05→14:01)
[2018-11-09] MEDS: ASPIRIN 81 MG CHEWABLE TABLETS PO SCH (09:58)
[2018-11-09] MEDS: MAGNESIUM OXIDE 400 MG TABLET (FP) PO SCH ×2 (09:58→21:51)
[2018-11-09] MEDS: PANTOPRAZOLE 40 MG TABLET (FP) PO SCH (09:58)
[2018-11-09] MEDS: CALCIUM 500MG/VIT-D 200 UNITS COMBO TABLET (FP) PO SCH (09:59)
[2018-11-09] MEDS: FOLIC ACID 1 MG TABLET (FP) PO SCH (09:59)
[2018-11-09] MEDS: chlordiazePOXIDE HCL 10 MG CAPSULE PO SCH (09:59)
[2018-11-09] MEDS: ROSUVASTATIN CA 10 MG TABLET (FP) PO SCH (09:59)
[2018-11-09] MEDS: SERTRALINE HCL 25 MG TABLET (FP) PO SCH (09:59)
[2018-11-09] MEDS: THIAMINE HCL 100 MG TABLET (FP) PO SCH (10:00)
[2018-11-09] MEDS: MULTIVITAMINS (DAILY MVI) TABLET (FP) PO SCH (10:00)
[2018-11-09] MEDS: LACTULOSE 20 GM/30 ML UDC (FOR ORAL USE ONLY) PO SCH ×2 (10:01→21:51)
[2018-11-09] MEDS: QUEtiapine FUMARATE 25 MG TABLET (FP) PO SCH ×2 (11:51→21:51)
--- NOTE | 2018-11-09 12:03 | PN ---
Progress Note, Physician History of Present Illness: Pt seen and examined at bedside. She is awake and alert. She denies shortness of breath. - Current Medication List Current Medications: Active Medications Acetaminophen (Tylenol -) 650 mg PO Q6H PRN PRN Reason: PAIN LEVEL 1-5 Last Admin: 11/06/18 13:54 Dose: 650 mg Aspirin (Asa -) 81 mg PO DAILY [facility] Last Admin: 11/09/18 09:58 Dose: 81 mg Calcium Carbonate/Cholecalciferol (Os-Hardik 500+D -) 2 tab PO DAILY [facility] Last Admin: 11/09/18 09:59 Dose: 2 tab Chlordiazepoxide HCl (Librium -) 10 mg PO BID [facility] Stop: 11/09/18 21:59 Last Admin: 11/09/18 09:59 Dose: 10 mg Chlordiazepoxide HCl (Librium -) 10 mg PO ONCE ONE Stop: 11/09/18 15:28 Folic Acid (Folic Acid -) 1 mg PO DAILY [facility] Last Admin: 11/09/18 09:59 Dose: 1 mg Ibuprofen (Motrin -) 400 mg PO Q6H PRN PRN Reason: PAIN LEVEL 4 - 6 Last Admin: 11/09/18 00:51 Dose: 400 mg Lactulose (Cephulac (Oral Use)) 20 gm PO BID [facility] Last Admin: 11/09/18 10:01 Dose: 20 gm Magnesium Oxide (Mag-Ox -) 400 mg PO BID [facility] Last Admin: 11/09/18 09:58 Dose: 400 mg Metoprolol Succinate (Toprol Xl -) 100 mg PO BID [facility] Last Admin: 11/09/18 09:59 Dose: 100 mg Multivitamins/Minerals/Vitamin C (Tab-A-Vit -) 1 tab PO DAILY [facility] Last Admin: 11/09/18 10:00 Dose: 1 tab Pantoprazole Sodium (Protonix -) 40 mg PO DAILY [facility] Last Admin: 11/09/18 09:58 Dose: 40 mg Quetiapine Fumarate (Seroquel -) 25 mg PO BID [facility] Last Admin: 11/09/18 11:51 Dose: 25 mg Rosuvastatin Calcium (Crestor -) 10 mg PO DAILY [facility] Last Admin: 11/09/18 09:59 Dose: 10 mg Sertraline HCl (Zoloft -) 25 mg PO DAILY [facility] Last Admin: 11/09/18 09:59 Dose: Not Given Thiamine HCl (Vitamin B1 -) 100 mg PO DAILY [facility] Last Admin: 11/09/18 10:00 Dose: 100 mg - Objective Vital Signs: Vital Signs Temperature 97.7 F 11/09/18 06:00 Pulse Rate 95 H 11/09/18 06:00 Respiratory Rate 20 11/09/18 06:00 Blood Pressure 121/90 11/09/18 06:00 O2 Sat by Pulse Oximetry (%) 95 11/08/18 21:00 Constitutional: Yes: Calm Eyes: Yes: Conjunctiva Clear HENT: Yes: Atraumatic Neck: Yes: Supple Cardiovascular: Yes: S1, S2 Respiratory: Yes: CTA Bilaterally Gastrointestinal: Yes: Soft Genitourinary: Yes: WNL Musculoskeletal: Yes: WNL Edema: No Integumentary: Yes: WNL Neurological: Yes: Oriented Psychiatric: Yes: Oriented Labs: CBC, BMP 11/09/18 06:09 11/09/18 06:09 INR, PTT INR 1.13 (0.83-1.09) H 11/05/18 07:45 Problem List - Problems (1) CKD (chronic kidney disease) Code(s): N18.9 - CHRONIC KIDNEY DISEASE, UNSPECIFIED (2) Rhabdomyolysis Code(s): M62.82 - RHABDOMYOLYSIS Qualifiers: Rhabdomyolysis type: non-traumatic Qualified Code(s): M62.82 - Rhabdomyolysis Assessment/Plan Current Medications Generic Name Dose Route Start Last Admin Trade Name Freq PRN Reason Stop Dose Admin Acetaminophen 650 mg 11/05/18 12:12 11/06/18 13:54 Tylenol - PO 650 mg Q6H PRN Administration PAIN LEVEL 1-5 Aspirin 81 mg 11/06/18 10:00 11/09/18 09:58 Asa - PO 81 mg DAILY [facility] Administration Calcium Carbonate/Cholecalciferol 2 tab 11/05/18 18:15 11/09/18 09:59 Os-Hardik 500+D - PO 2 tab DAILY [facility] Administration Chlordiazepoxide HCl 10 mg 11/08/18 22:00 11/09/18 09:59 Librium - PO 11/09/18 21:59 10 mg BID [facility] Administration Chlordiazepoxide HCl 10 mg 11/09/18 15:27 Librium - PO 11/09/18 15:28 ONCE ONE Folic Acid 1 mg 11/06/18 10:00 11/09/18 09:59 Folic Acid - PO 1 mg DAILY [facility] Administration Ibuprofen 400 mg 11/08/18 17:06 11/09/18 00:51 Motrin - PO 400 mg Q6H PRN Administration PAIN LEVEL 4 - 6 Lactulose 20 gm 11/08/18 10:00 11/09/18 10:01 Cephulac (Oral Use) PO 20 gm BID [facility] Administration Magnesium Oxide 400 mg 11/08/18 13:45 11/09/18 09:58 Mag-Ox - PO 400 mg BID [facility] Administration Metoprolol Succinate 100 mg 11/05/18 22:00 11/09/18 09:59 Toprol Xl - PO 100 mg BID [facility] Administration Multivitamins/Minerals/Vitamin C 1 tab 11/06/18 10:00 11/09/18 10:00 Tab-A-Vit - PO 1 tab DAILY [facility] Administration Pantoprazole Sodium 40 mg 11/06/18 10:00 11/09/18 09:58 Protonix - PO 40 mg DAILY [facility] Administration Quetiapine Fumarate 25 mg 11/09/18 11:30 11/09/18 11:51 Seroquel - PO 25 mg BID [facility] Administration Rosuvastatin Calcium 10 mg 11/06/18 10:00 11/09/18 09:59 Crestor - PO 10 mg DAILY [facility] Administration Sertraline HCl 25 mg 11/06/18 10:00 11/09/18 09:59 Zoloft - PO Not Given DAILY [facility] Thiamine HCl 100 mg 11/06/18 10:00 11/09/18 10:00 Vitamin B1 - PO 100 mg DAILY [facility] Administration Impression 1. CKD 2. etoh abuse 3. hypocalcemia 4. paroxysmal A fib 5. HTN 6. HLD 7. DM 8. Ulcerative colitis Plan - potassium stable - mag stable - encourage PO intake - will follow PRN
[2018-11-09] MEDS: ACETAMINOPHEN 325 MG TABLET (FP) PO PRN (14:27)
[2018-11-09] MEDS ORDERED: chlordiazePOXIDE HCL 10 MG CAPSULE PO ONE (15:27)
[2018-11-09] MEDS ORDERED: LORazepam 1 MG TABLET PO ONE (17:37)
[2018-11-10] MEDS: IBUPROFEN 400 MG TABLET (FP) PO PRN ×2 (06:15→19:26)
--- NOTE | 2018-11-10 08:42 | PN ---
Progress Note, Physician Chief Complaint: ETOH abuse Hepatic encephalopathy Fall Rhabdomyolysis Hypokalemia Dehydration History of Present Illness: NAD awaiting bed at detox rehab feels anxious Seroquel was increased to 25 mg po BID - Current Medication List Current Medications: Active Medications Acetaminophen (Tylenol -) 650 mg PO Q6H PRN PRN Reason: PAIN LEVEL 1-5 Last Admin: 11/09/18 14:27 Dose: 650 mg Aspirin (Asa -) 81 mg PO DAILY [facility] Last Admin: 11/09/18 09:58 Dose: 81 mg Calcium Carbonate/Cholecalciferol (Os-Hardik 500+D -) 2 tab PO DAILY [facility] Last Admin: 11/09/18 09:59 Dose: 2 tab Cyanocobalamin (Vitamin B12 -) 1,000 mcg PO DAILY [facility] Folic Acid (Folic Acid -) 1 mg PO DAILY [facility] Last Admin: 11/09/18 09:59 Dose: 1 mg Ibuprofen (Motrin -) 400 mg PO Q6H PRN PRN Reason: PAIN LEVEL 4 - 6 Last Admin: 11/10/18 06:15 Dose: 400 mg Lactulose (Cephulac (Oral Use)) 20 gm PO BID [facility] Last Admin: 11/09/18 21:51 Dose: 20 gm Magnesium Oxide (Mag-Ox -) 400 mg PO BID [facility] Last Admin: 11/09/18 21:51 Dose: 400 mg Metoprolol Succinate (Toprol Xl -) 100 mg PO BID [facility] Last Admin: 11/09/18 21:51 Dose: 100 mg Multivitamins/Minerals/Vitamin C (Tab-A-Vit -) 1 tab PO DAILY [facility] Last Admin: 11/09/18 10:00 Dose: 1 tab Ondansetron HCl (Zofran Injection) 4 mg IVPUSH Q4H PRN PRN Reason: NAUSEA AND/OR VOMITING Pantoprazole Sodium (Protonix -) 40 mg PO DAILY [facility] Last Admin: 11/09/18 09:58 Dose: 40 mg Quetiapine Fumarate (Seroquel -) 25 mg PO BID [facility] Last Admin: 11/09/18 21:51 Dose: 25 mg Rosuvastatin Calcium (Crestor -) 10 mg PO DAILY [facility] Last Admin: 11/09/18 09:59 Dose: 10 mg Sertraline HCl (Zoloft -) 25 mg PO DAILY [facility] Last Admin: 11/09/18 09:59 Dose: Not Given Thiamine HCl (Vitamin B1 -) 100 mg PO DAILY [facility] Last Admin: 11/09/18 10:00 Dose: 100 mg - Objective Vital Signs: Vital Signs Temperature 98.1 F 11/10/18 06:00 Pulse Rate 97 H 11/10/18 06:00 Respiratory Rate 20 11/10/18 06:00 Blood Pressure 127/85 11/10/18 06:00 O2 Sat by Pulse Oximetry (%) 98 11/10/18 08:21 Constitutional: Yes: Well Nourished, No Distress, Calm Cardiovascular: Yes: Regular Rate and Rhythm Respiratory: Yes: Regular Gastrointestinal: Yes: WNL Genitourinary: Yes: WNL Musculoskeletal: Yes: Muscle Weakness Extremities: Yes: WNL Edema: No Peripheral Pulses WNL: Yes Neurological: Yes: Alert, Oriented Psychiatric: Yes: Alert, Oriented Labs: CBC, BMP 11/09/18 06:09 11/09/18 06:09 INR, PTT INR 1.13 (0.83-1.09) H 11/05/18 07:45 Problem List - Problems (1) Hypokalemia Assessment/Plan: -resolved Code(s): E87.6 - HYPOKALEMIA (2) Anxiety and depression Assessment/Plan: -Increase seroquel to 25 mg po BID -Started on B12, was low in the past Code(s): F41.9 - ANXIETY DISORDER, UNSPECIFIED; F32.9 - MAJOR DEPRESSIVE DISORDER, SINGLE EPISODE, UNSPECIFIED Assessment/Plan (1) Atrial fibrillation Assessment/Plan: -cardiology on board -Aspirin and Metoprolol Code(s): I48.91 - UNSPECIFIED ATRIAL FIBRILLATION Qualifiers: Atrial fibrillation type: chronic Qualified Code(s): I48.2 - Chronic atrial fibrillation (2) Rhabdomyolysis Assessment/Plan: -resolved -IV hydration Code(s): M62.82 - RHABDOMYOLYSIS Qualifiers: Rhabdomyolysis type: non-traumatic Qualified Code(s): M62.82 - Rhabdomyolysis (3) Abdominal pain Assessment/Plan: -Zofran prn for nausea -Abdominal US shows fatty infiltration of liver Code(s): R10.9 - UNSPECIFIED ABDOMINAL PAIN Qualifiers: Abdominal location: generalized Qualified Code(s): R10.84 - Generalized abdominal pain (4) Alcohol dependence Assessment/Plan: -consult for Dr Bishop -Librium taper -psych consult -fall precaution -Thiamine, Folic acid, MVI -Detox placement for discharge Code(s): F10.20 - ALCOHOL DEPENDENCE, UNCOMPLICATED Qualifiers: Substance use status: unspecified alcohol-induced disorder Qualified Code(s ): F10.29 - Alcohol dependence with unspecified alcohol-induced disorder (5) Depression Assessment/Plan: -psych consult -Has been refusing Zoloft Code(s): F32.9 - MAJOR DEPRESSIVE DISORDER, SINGLE EPISODE, UNSPECIFIED (6) HTN (hypertension) Assessment/Plan: -low Na diet Code(s): I10 - ESSENTIAL (PRIMARY) HYPERTENSION
[2018-11-10] MEDS: ROSUVASTATIN CA 10 MG TABLET (FP) PO SCH (09:44)
[2018-11-10] MEDS: ASPIRIN 81 MG CHEWABLE TABLETS PO SCH (09:44)
[2018-11-10] MEDS: MAGNESIUM OXIDE 400 MG TABLET (FP) PO SCH ×2 (09:45→21:11)
[2018-11-10] MEDS: QUEtiapine FUMARATE 25 MG TABLET (FP) PO SCH ×2 (09:45→21:11)
[2018-11-10] MEDS: LACTULOSE 20 GM/30 ML UDC (FOR ORAL USE ONLY) PO SCH ×2 (09:45→21:11)
[2018-11-10] MEDS: FOLIC ACID 1 MG TABLET (FP) PO SCH (09:45)
[2018-11-10] MEDS: CYANOCOBALAMIN 1,000 MCG TABLET (FP) PO SCH (09:45)
[2018-11-10] MEDS: MULTIVITAMINS (DAILY MVI) TABLET (FP) PO SCH (09:45)
[2018-11-10] MEDS: CALCIUM 500MG/VIT-D 200 UNITS COMBO TABLET (FP) PO SCH (09:45)
[2018-11-10] MEDS: PANTOPRAZOLE 40 MG TABLET (FP) PO SCH (09:45)
[2018-11-10] MEDS: SERTRALINE HCL 25 MG TABLET (FP) PO SCH (09:45)
[2018-11-10] MEDS: THIAMINE HCL 100 MG TABLET (FP) PO SCH (09:45)
[2018-11-10] MEDS ORDERED: LORazepam 0.5 MG TABLET PO ONE ×2 (13:19→21:15)
[2018-11-11] MEDS: IBUPROFEN 400 MG TABLET (FP) PO PRN ×2 (03:00→18:12)
[2018-11-11] MEDS: FOLIC ACID 1 MG TABLET (FP) PO SCH (09:15)
[2018-11-11] MEDS: PANTOPRAZOLE 40 MG TABLET (FP) PO SCH (09:16)
[2018-11-11] MEDS: ROSUVASTATIN CA 10 MG TABLET (FP) PO SCH (09:16)
[2018-11-11] MEDS: QUEtiapine FUMARATE 25 MG TABLET (FP) PO SCH ×2 (09:16→21:12)
[2018-11-11] MEDS: SERTRALINE HCL 25 MG TABLET (FP) PO SCH (09:16)
[2018-11-11] MEDS: ASPIRIN 81 MG CHEWABLE TABLETS PO SCH (09:16)
[2018-11-11] MEDS: MULTIVITAMINS (DAILY MVI) TABLET (FP) PO SCH (09:16)
[2018-11-11] MEDS: MAGNESIUM OXIDE 400 MG TABLET (FP) PO SCH ×2 (09:16→21:12)
[2018-11-11] MEDS: CYANOCOBALAMIN 1,000 MCG TABLET (FP) PO SCH (09:16)
[2018-11-11] MEDS: CALCIUM 500MG/VIT-D 200 UNITS COMBO TABLET (FP) PO SCH (09:16)
[2018-11-11] MEDS: THIAMINE HCL 100 MG TABLET (FP) PO SCH (09:16)
[2018-11-11] MEDS: LACTULOSE 20 GM/30 ML UDC (FOR ORAL USE ONLY) PO SCH ×2 (09:17→21:12)
--- NOTE | 2018-11-11 12:26 | PN ---
Progress Note, Physician Chief Complaint: ETOH Abuse Alcoholic Fatty Liver History of Present Illness: Previous notes and events reviewed awake and alert NAD complain of worsening SOB on exertion - Current Medication List Current Medications: Active Medications Acetaminophen (Tylenol -) 650 mg PO Q6H PRN PRN Reason: PAIN LEVEL 1-5 Last Admin: 11/09/18 14:27 Dose: 650 mg Aspirin (Asa -) 81 mg PO DAILY [facility] Last Admin: 11/11/18 09:16 Dose: 81 mg Calcium Carbonate/Cholecalciferol (Os-Hardik 500+D -) 2 tab PO DAILY [facility] Last Admin: 11/11/18 09:16 Dose: 2 tab Cyanocobalamin (Vitamin B12 -) 1,000 mcg PO DAILY [facility] Last Admin: 11/11/18 09:16 Dose: 1,000 mcg Folic Acid (Folic Acid -) 1 mg PO DAILY [facility] Last Admin: 11/11/18 09:15 Dose: 1 mg Ibuprofen (Motrin -) 400 mg PO Q6H PRN PRN Reason: PAIN LEVEL 4 - 6 Last Admin: 11/11/18 03:00 Dose: 400 mg Lactulose (Cephulac (Oral Use)) 20 gm PO BID [facility] Last Admin: 11/11/18 09:17 Dose: 20 gm Magnesium Oxide (Mag-Ox -) 400 mg PO BID [facility] Last Admin: 11/11/18 09:16 Dose: 400 mg Metoprolol Succinate (Toprol Xl -) 100 mg PO BID [facility] Last Admin: 11/11/18 09:16 Dose: 100 mg Multivitamins/Minerals/Vitamin C (Tab-A-Vit -) 1 tab PO DAILY [facility] Last Admin: 11/11/18 09:16 Dose: 1 tab Ondansetron HCl (Zofran Injection) 4 mg IVPUSH Q4H PRN PRN Reason: NAUSEA AND/OR VOMITING Pantoprazole Sodium (Protonix -) 40 mg PO DAILY [facility] Last Admin: 11/11/18 09:16 Dose: 40 mg Quetiapine Fumarate (Seroquel -) 25 mg PO BID [facility] Last Admin: 11/11/18 09:16 Dose: 25 mg Rosuvastatin Calcium (Crestor -) 10 mg PO DAILY [facility] Last Admin: 11/11/18 09:16 Dose: 10 mg Sertraline HCl (Zoloft -) 25 mg PO DAILY [facility] Last Admin: 11/11/18 09:16 Dose: 25 mg Thiamine HCl (Vitamin B1 -) 100 mg PO DAILY [facility] Last Admin: 11/11/18 09:16 Dose: 100 mg - Objective Vital Signs: Vital Signs Temperature 97.6 F 11/11/18 09:33 Pulse Rate 80 11/11/18 09:33 Respiratory Rate 20 11/11/18 09:33 Blood Pressure 134/86 11/11/18 09:33 O2 Sat by Pulse Oximetry (%) 98 11/11/18 09:00 Constitutional: Yes: No Distress, Calm Eyes: Yes: Conjunctiva Clear HENT: Yes: Atraumatic Cardiovascular: Yes: Pulse Irregular Respiratory: Yes: Regular, CTA Bilaterally, On Nasal O2 Gastrointestinal: Yes: Normal Bowel Sounds, Soft Musculoskeletal: Yes: Muscle Weakness Extremities: Yes: WNL Edema: No Neurological: Yes: Alert, Oriented Psychiatric: Yes: Alert, Oriented Labs: CBC, BMP 11/09/18 06:09 11/09/18 06:09 INR, PTT INR 1.13 (0.83-1.09) H 11/05/18 07:45 Problem List - Problems (1) Atrial fibrillation Assessment/Plan: -cardiology on board -Aspirin and Metoprolol Code(s): I48.91 - UNSPECIFIED ATRIAL FIBRILLATION Qualifiers: Atrial fibrillation type: chronic Qualified Code(s): I48.2 - Chronic atrial fibrillation (2) Rhabdomyolysis Assessment/Plan: -CK 204 -IV hydration Code(s): M62.82 - RHABDOMYOLYSIS Qualifiers: Rhabdomyolysis type: non-traumatic Qualified Code(s): M62.82 - Rhabdomyolysis (3) Abdominal pain Assessment/Plan: -Zofran prn for nausea -Abdominal US shows fatty infiltration of liver Code(s): R10.9 - UNSPECIFIED ABDOMINAL PAIN Qualifiers: Abdominal location: generalized Qualified Code(s): R10.84 - Generalized abdominal pain (4) Alcohol dependence Assessment/Plan: -consult for Dr Bishop -Librglenn taper completed -psych on board -fall precaution -Thiamine, Folic acid, MVI -Detox placement for discharge Code(s): F10.20 - ALCOHOL DEPENDENCE, UNCOMPLICATED Qualifiers: Substance use status: unspecified alcohol-induced disorder Qualified Code(s ): F10.29 - Alcohol dependence with unspecified alcohol-induced disorder (5) Depression Assessment/Plan: -psych consult -Zoloft -Seroquel BID Code(s): F32.9 - MAJOR DEPRESSIVE DISORDER, SINGLE EPISODE, UNSPECIFIED (6) HTN (hypertension) Assessment/Plan: -low Na diet Code(s): I10 - ESSENTIAL (PRIMARY) HYPERTENSION (7) SOB (shortness of breath) Assessment/Plan: -EKG stat -CXR stat -O2 via NC -keep SpO2 >90% Code(s): R06.02 - SHORTNESS OF BREATH Assessment/Plan see problem list dvt ppx detox placement for discharge
[2018-11-11] MEDS ORDERED: LORazepam 0.5 MG TABLET PO ONE (14:17)
[2018-11-11] MEDS ORDERED: ALBUTEROL SO4 0.083% IH SOL 2.5 MG/3 ML VIAL.NEB. NEB PRN (14:48)
--- NOTE | 2018-11-11 16:03 | PN ---
Progress Note (short form) - Note Progress Note: ID CONSULT DICTATED R/O HCAP ? CHF OBTAIN C/S EMPIRIC [id number]
[2018-11-11] MEDS ORDERED: DEXTROSE 5%-WATER 100 ML IVPB ONE (16:14)
[2018-11-11] MEDS: CEFTRIAXONE 2 GM in DEXTROSE 5%-WATER 100 ML IVPB SCH (16:16)
--- NOTE | 2018-11-11 17:00 | CONS ---
DATE OF CONSULTATION: DATE OF DICTATION: 11/11/2018 INFECTIOUS DISEASE CONSULTATION HISTORY OF PRESENT ILLNESS: The patient is a 68-year-old female with a history of chronic alcohol abuse evaluated for possible pneumonia. She was admitted to the hospital on November 05, 2018, with complaints of generalized body pain and dehydration. The patient had admitted to drinking excessively at home and had fallen. She was noted to have bruising. Her course was complicated by atrial fibrillation, acute kidney injury possibly secondary to rhabdomyolysis. The patient experienced an acute episode of anxiety of today associated with worsening shortness of breath. A chest x-ray was performed that shows new bibasilar infiltrates and atelectasis. She has no complaints of chest pain. She denied any fever or chills. She has an occasional cough, no purulent sputum production or hemoptysis. PAST MEDICAL HISTORY: Positive for chronic alcohol abuse, atrial fibrillation, hypertension, hyperlipidemia, depression, ulcerative colitis. ALLERGIES: No known allergies. MEDICATION: Metoprolol, Protonix, Crestor, aspirin, lactulose, Seroquel. SOCIAL HISTORY: Positive for alcohol abuse. Patient is a nonsmoker. She denies recent hospitalization, although has had multiple emergency room visits. States she has since received influenza and pneumococcal vaccine. SYSTEMS REVIEW: Neurologic: No loss of consciousness, seizure activity, or focal weakness. Cardiac: As per HPI. Respiratory: As per HPI. Gastrointestinal: Negative vomiting or diarrhea. Genitourinary: Positive for chronic kidney disease. LABORATORY DATA: White count 5.9, hematocrit 30.4, platelets of 100, creatinine 0.9. Liver enzymes normal. Urinalysis: 3-5 white cells. Chest x-ray as mentioned. PHYSICAL EXAMINATION: General: On physical examination, she is chronically ill appearing. Vital signs: Temperature 97.6, blood pressure 134/86, pulse 80 regular, respirations 20 per minute. HEENT: Sclerae anicteric. Cardiovascular: Heart sounds S1, S2. Irregular. Lungs: Decreased breath sounds at the bases bilaterally. Abdomen: Soft, nontender. Extremities: 1+ edema. IMPRESSION: 1. Rule out healthcare-acquired pneumonia. 2. Possible decompensated congestive heart failure. 3. Atrial fibrillation. 4. Azotemia. 5. History of chronic alcohol abuse. Will obtain blood cultures, sputum cultures, urine legionella and pneumococcal antigens, empiric antibiotic coverage with ceftriaxone 2 g IV piggyback daily. Cardiology followup. Thank you for the kind referral. RADHA RENE M.D. MAKENNA/[id number]
[2018-11-11] MEDS: LORazepam 1 MG TABLET PO PRN (21:12)
[2018-11-12] MEDS ORDERED: chlordiazePOXIDE HCL 25 MG CAPSULE PO ONE (00:58)
[2018-11-12] MEDS: ONDANSETRON 4 MG/2 ML VIAL IVPUSH PRN ×2 (03:08→09:53)
[2018-11-12 08:01] LABS: BLOOD UREA NITROGEN 11.2 mg/dL (7-18); CALCIUM 8.8 mg/dL (8.5-10.1); POTASSIUM 3.6 mmol/L (3.5-5.1); TOT PROT 6.3 g/dl (6.4-8.2)
[2018-11-12 08:30] LABS: HEMATOCRIT 31.9 % (32.4-45.2); HEMOGLOBIN 10.4 GM/dL (10.7-15.3); MCH 29.2 pg (25.7-33.7); MCHC 32.7 g/dl (32.0-36.0); MEAN CELL VOLUME 89.1 fl (80-96); MEAN PLT VOLUME 11.8 fl (7.5-11.1); PLATELET COUNT 109 K/MM3 (134-434); RBC 3.58 M/mm3 (3.60-5.2); RDW 16.4 % (11.6-15.6); WHITE BLOOD COUNT 6.6 K/mm3 (4.0-10.0)
[2018-11-12] MEDS ORDERED: DEXTROSE 5%-WATER 100 ML IVPB ONE (08:45)
[2018-11-12] MEDS: LACTULOSE 20 GM/30 ML UDC (FOR ORAL USE ONLY) PO SCH ×2 (09:44→23:18)
[2018-11-12] MEDS: ASPIRIN 81 MG CHEWABLE TABLETS PO SCH (09:46)
[2018-11-12] MEDS: SERTRALINE HCL 25 MG TABLET (FP) PO SCH (09:46)
[2018-11-12] MEDS: CYANOCOBALAMIN 1,000 MCG TABLET (FP) PO SCH (09:46)
[2018-11-12] MEDS: QUEtiapine FUMARATE 25 MG TABLET (FP) PO SCH ×2 (09:47→23:20)
[2018-11-12] MEDS: ROSUVASTATIN CA 10 MG TABLET (FP) PO SCH (09:47)
[2018-11-12] MEDS: CALCIUM 500MG/VIT-D 200 UNITS COMBO TABLET (FP) PO SCH (09:49)
[2018-11-12] MEDS: CEFTRIAXONE 2 GM in DEXTROSE 5%-WATER 100 ML IVPB SCH (09:49)
[2018-11-12] MEDS: MAGNESIUM OXIDE 400 MG TABLET (FP) PO SCH ×2 (09:49→23:18)
[2018-11-12] MEDS: MULTIVITAMINS (DAILY MVI) TABLET (FP) PO SCH (09:49)
[2018-11-12] MEDS: PANTOPRAZOLE 40 MG TABLET (FP) PO SCH (09:50)
[2018-11-12] MEDS: FOLIC ACID 1 MG TABLET (FP) PO SCH (09:50)
[2018-11-12] MEDS: THIAMINE HCL 100 MG TABLET (FP) PO SCH (09:51)
[2018-11-12] MEDS: LORazepam 1 MG TABLET PO PRN (11:26)
--- NOTE | 2018-11-12 11:29 | PN ---
Progress Note, Physician Chief Complaint: ETOH Abuse Alcoholic Fatty Liver History of Present Illness: Previous notes and events reviewed awake and alert NAD complain of worsening SOB on exertion c/o R hip pain - Current Medication List Current Medications: Active Medications Acetaminophen (Tylenol -) 650 mg PO Q6H PRN PRN Reason: PAIN LEVEL 1-5 Last Admin: 11/09/18 14:27 Dose: 650 mg Albuterol Sulfate (Ventolin 0.083% Nebulizer Soln -) 1 amp NEB RQID PRN PRN Reason: SHORT OF BREATH/WHEEZING Aspirin (Asa -) 81 mg PO DAILY [facility] Last Admin: 11/12/18 09:46 Dose: 81 mg Calcium Carbonate/Cholecalciferol (Os-Hardik 500+D -) 2 tab PO DAILY [facility] Last Admin: 11/12/18 09:49 Dose: 2 tab Cyanocobalamin (Vitamin B12 -) 1,000 mcg PO DAILY [facility] Last Admin: 11/12/18 09:46 Dose: 1,000 mcg Folic Acid (Folic Acid -) 1 mg PO DAILY [facility] Last Admin: 11/12/18 09:50 Dose: 1 mg Ceftriaxone Sodium 2 gm/ (Dextrose) 100 mls @ 200 mls/hr IVPB DAILY [facility]; Protocol Last Admin: 11/12/18 09:49 Dose: 200 mls/hr Ibuprofen (Motrin -) 400 mg PO Q6H PRN PRN Reason: PAIN LEVEL 4 - 6 Last Admin: 11/11/18 18:12 Dose: 400 mg Lactulose (Cephulac (Oral Use)) 20 gm PO BID [facility] Last Admin: 11/12/18 09:44 Dose: Not Given Lorazepam (Ativan -) 1 mg PO Q12H PRN PRN Reason: AGITATION Last Admin: 11/12/18 11:26 Dose: 1 mg Magnesium Oxide (Mag-Ox -) 400 mg PO BID [facility] Last Admin: 11/12/18 09:49 Dose: 400 mg Metoprolol Succinate (Toprol Xl -) 100 mg PO BID [facility] Last Admin: 11/12/18 09:48 Dose: 100 mg Multivitamins/Minerals/Vitamin C (Tab-A-Vit -) 1 tab PO DAILY [facility] Last Admin: 11/12/18 09:49 Dose: 1 tab Pantoprazole Sodium (Protonix -) 40 mg PO DAILY [facility] Last Admin: 11/12/18 09:50 Dose: 40 mg Quetiapine Fumarate (Seroquel -) 25 mg PO BID [facility] Last Admin: 11/12/18 09:47 Dose: Not Given Rosuvastatin Calcium (Crestor -) 10 mg PO DAILY [facility] Last Admin: 11/12/18 09:47 Dose: 10 mg Sertraline HCl (Zoloft -) 25 mg PO DAILY [facility] Last Admin: 11/12/18 09:46 Dose: Not Given Thiamine HCl (Vitamin B1 -) 100 mg PO DAILY [facility] Last Admin: 11/12/18 09:51 Dose: 100 mg - Objective Vital Signs: Vital Signs Temperature 97.8 F 11/12/18 06:00 Pulse Rate 77 11/12/18 06:00 Respiratory Rate 20 11/12/18 06:00 Blood Pressure 140/94 11/12/18 06:00 O2 Sat by Pulse Oximetry (%) 98 11/11/18 20:46 Constitutional: Yes: No Distress, Calm Eyes: Yes: Conjunctiva Clear HENT: Yes: Atraumatic Cardiovascular: Yes: Pulse Irregular Respiratory: Yes: Regular, Diminished Gastrointestinal: Yes: Normal Bowel Sounds, Soft Musculoskeletal: Yes: Muscle Weakness Extremities: Yes: WNL Edema: No Neurological: Yes: Alert, Oriented Psychiatric: Yes: Alert, Oriented Labs: CBC, BMP 11/12/18 05:20 11/12/18 05:20 INR, PTT INR 1.13 (0.83-1.09) H 11/05/18 07:45 Problem List - Problems (1) Atrial fibrillation Assessment/Plan: -cardiology on board -Aspirin and Metoprolol Code(s): I48.91 - UNSPECIFIED ATRIAL FIBRILLATION Qualifiers: Atrial fibrillation type: chronic Qualified Code(s): I48.2 - Chronic atrial fibrillation (2) Rhabdomyolysis Assessment/Plan: -CK 204 -IV hydration Code(s): M62.82 - RHABDOMYOLYSIS Qualifiers: Rhabdomyolysis type: non-traumatic Qualified Code(s): M62.82 - Rhabdomyolysis (3) Abdominal pain Assessment/Plan: -Zofran prn for nausea -Abdominal US shows fatty infiltration of liver--GI consult Code(s): R10.9 - UNSPECIFIED ABDOMINAL PAIN Qualifiers: Abdominal location: generalized Qualified Code(s): R10.84 - Generalized abdominal pain (4) Alcohol dependence Assessment/Plan: -consult for Dr Bishop -Librium taper completed -psych on board -fall precaution -Thiamine, Folic acid, MVI -Detox placement for discharge Code(s): F10.20 - ALCOHOL DEPENDENCE, UNCOMPLICATED Qualifiers: Substance use status: unspecified alcohol-induced disorder Qualified Code(s ): F10.29 - Alcohol dependence with unspecified alcohol-induced disorder (5) Depression Assessment/Plan: -psych consult -Zoloft -Seroquel BID -Ativan 1mg po q12h prn for anxiety Code(s): F32.9 - MAJOR DEPRESSIVE DISORDER, SINGLE EPISODE, UNSPECIFIED (6) HTN (hypertension) Assessment/Plan: -low Na diet Code(s): I10 - ESSENTIAL (PRIMARY) HYPERTENSION (7) SOB (shortness of breath) Assessment/Plan: -CXR shows new bibasilar infiltrates with fluid and atelectasis with congestive changes -Pulm and ID consult -Ceftriaxone -bronchodilator -O2 via NC -keep SpO2 >90% Code(s): R06.02 - SHORTNESS OF BREATH Assessment/Plan see problem list dvt ppx detox placement for discharge
--- NOTE | 2018-11-12 12:47 | EKG ---
Test Reason : Blood Pressure : / mmHG Vent. Rate : 099 BPM Atrial Rate : 100 BPM P-R Int : 000 ms QRS Dur : 092 ms QT Int : 360 ms P-R-T Axes : 000 097 119 degrees QTc Int : 462 ms ATRIAL FIBRILLATION RIGHTWARD AXIS ABNORMAL ECG WHEN COMPARED WITH ECG OF 05-NOV-2018 20:09, T WAVE INVERSION NOW EVIDENT IN LATERAL LEADS Confirmed by Juancarlos Collins MD ([id number]) on 11/12/2018 12:47:28 PM Referred By: GIANA LAMB DR Confirmed By:Juancarlos Collins MD
--- NOTE | 2018-11-12 12:50 | PN ---
Progress Note (short form) - Note Progress Note: PULMONARY CONSULTATION DICTATED 11/12/18 IMP ACUTE RESPIRATORY DISTRESS LIKELY ACUTE CHF ? PNEUMONIA RAPID AFIB HTN DM ETOH ABUSE PLAN ABX PER ID LASIX O2 RATE CONTROL PER CARDIOLOGY F/U CHEST X-RAYS DVT PROPHYLAXIS BNP STRICT I+Os ECHO DR BEE Problem List - Problems (1) Alcohol intoxication Code(s): F10.929 - ALCOHOL USE, UNSPECIFIED WITH INTOXICATION, UNSPECIFIED Qualifiers: Complication of substance-induced condition: uncomplicated Qualified Code(s ): F10.920 - Alcohol use, unspecified with intoxication, uncomplicated (2) Atrial fibrillation Code(s): I48.91 - UNSPECIFIED ATRIAL FIBRILLATION Qualifiers: Atrial fibrillation type: chronic Qualified Code(s): I48.2 - Chronic atrial fibrillation (3) CKD (chronic kidney disease) Code(s): N18.9 - CHRONIC KIDNEY DISEASE, UNSPECIFIED (4) SOB (shortness of breath) Code(s): R06.02 - SHORTNESS OF BREATH (5) Chronic a-fib Code(s): I48.2 - CHRONIC ATRIAL FIBRILLATION (6) T2DM (type 2 diabetes mellitus) Code(s): E11.9 - TYPE 2 DIABETES MELLITUS WITHOUT COMPLICATIONS (7) Pneumonia Code(s): J18.9 - PNEUMONIA, UNSPECIFIED ORGANISM (8) CHF (congestive heart failure) Code(s): I50.9 - HEART FAILURE, UNSPECIFIED
[2018-11-12] MEDS: LIDOCAINE 5% TOPICAL PATCH TP SCH (13:05)
[2018-11-12 13:59] LABS: N-TERMINAL BNP 16359.3 pg/ml (5-125)
--- NOTE | 2018-11-12 14:51 | CONS ---
DATE OF CONSULTATION: 11/12/2018 PULMONARY CONSULTATION REFERRING PHYSICIAN: Shan Nino MD HISTORY OF PRESENT ILLNESS: The patient is a 68-year-old white female with an extensive past medical history which includes atrial fibrillation, currently maintained on metoprolol and aspirin, hypertension, hyperlipidemia, chronic ETOH , depression, remote history of smoking many years ago, admitted to [facility] secondary to excessive drinking for the past week and a half. Patient's son recently 2 weeks prior to admission unexpectedly. Since that time she has been drinking up to a bottle of vodka a day. She apparently fell approximately a week ago but denied any loss of consciousness. On admission she was also noted to have elevated CPK levels and felt to have mild rhabdomyolysis. She was started on IV fluids. Hospitalization is significant for the past couple of days she started developing increasing shortness of breath and mild cough that is nonproductive. She had a chest x-ray performed which revealed bilateral pulmonary vascular congestion and bilateral infiltrates. She was evaluated by Dr. Bueno from Infectious Disease and placed on broad-spectrum antibiotics. Patient denies any history of pneumonia. There is no history of occupational exposure to chemicals or fumes. She denies any fevers, chills or hemoptysis. Denies any chest pain. Does have occasional palpitations. She states that for the past few days she has been getting progressively more short of breath. PAST MEDICAL HISTORY: Again includes hypertension, atrial fibrillation, ETOH, hyperlipidemia and depression. REVIEW OF SYSTEMS: Positive dyspnea. No orthopnea. No chest pain. Positive palpitations. No fever. No chills. No hemoptysis. No abdominal pain. CURRENT MEDICATIONS: Include Lidoderm, lactulose, Tylenol, Mag-Ox, ceftriaxone, Seroquel, albuterol, Toprol, Crestor, aspirin, Motrin, Protonix, Os-Hardik and vitamin D1. PHYSICAL EXAMINATION: General: The patient is a well-developed, well-nourished female, awake, alert, in no acute respiratory distress. Vital Signs: She is currently afebrile, blood pressure 140/94, respiratory rate is 20, O2 saturation is 98% on 2 L. HEENT: Normocephalic, atraumatic. Neck: Supple. Heart: Irregularly irregular, tachycardic, S1, S2. Chest: Bibasilar crackles. Abdomen: Soft. Bowel sounds are positive. Extremities: No cyanosis or edema. LABORATORIES: WBC is 6.6, hemoglobin 10.4, hematocrit 31.9 with a platelet count of 109,000. INR is 1.13. BUN is 11, creatinine 1.0. Of note is CK on November 06 was 1230. MB fraction is 1. The albumin is 3.0. Alcohol level on admission was 262. Chest x-ray revealed bilateral bibasilar consolidation, infiltrates and bilateral effusions. IMPRESSION: 1. Acute respiratory distress, likely acute congestive heart failure. 2. One cannot exclude pneumonia. 3. Rapid atrial fibrillation. 4. Hypertension. 5. Diabetes. 6. Ethyl alcohol. PLAN: Continue antibiotics as per Infectious Disease. Lasix. Supplemental O2. Rate control as per Cardiology. Obtain Cardiology followup. Obtain serum BNP, echocardiogram, DVT prophylaxis and followup chest x-rays and strict I's and O' s. Thank you. MATTHEW BEE M.D. [id number] MTDD
--- NOTE | 2018-11-12 17:07 | PN ---
Progress Note, Physician Chief Complaint: RUSSELL Fatigue History of Present Illness: This is a 68 year old female with a PMH of AFIB (currently not on AC), depression, HLD, HTN, UC, history of GI bleeding and chronic ETOH. Presently awaiting a bed [facility]. She has RUSSELL and is SOB walking to the bathroom. An echocardiogram is pending. - Current Medication List Current Medications: Active Medications Acetaminophen (Tylenol -) 650 mg PO Q6H PRN PRN Reason: PAIN LEVEL 1-5 Last Admin: 11/09/18 14:27 Dose: 650 mg Albuterol Sulfate (Ventolin 0.083% Nebulizer Soln -) 1 amp NEB RQID PRN PRN Reason: SHORT OF BREATH/WHEEZING Aspirin (Asa -) 81 mg PO DAILY [facility] Last Admin: 11/12/18 09:46 Dose: 81 mg Calcium Carbonate/Cholecalciferol (Os-Hardik 500+D -) 2 tab PO DAILY [facility] Last Admin: 11/12/18 09:49 Dose: 2 tab Cyanocobalamin (Vitamin B12 -) 1,000 mcg PO DAILY [facility] Last Admin: 11/12/18 09:46 Dose: 1,000 mcg Folic Acid (Folic Acid -) 1 mg PO DAILY [facility] Last Admin: 11/12/18 09:50 Dose: 1 mg Ceftriaxone Sodium 2 gm/ (Dextrose) 100 mls @ 200 mls/hr IVPB DAILY [facility]; Protocol Last Admin: 11/12/18 09:49 Dose: 200 mls/hr Ibuprofen (Motrin -) 400 mg PO Q6H PRN PRN Reason: PAIN LEVEL 4 - 6 Last Admin: 11/11/18 18:12 Dose: 400 mg Lactulose (Cephulac (Oral Use)) 20 gm PO BID [facility] Last Admin: 11/12/18 09:44 Dose: Not Given Lidocaine (Lidoderm Patch -) 1 patch TP DAILY [facility] Last Admin: 11/12/18 13:05 Dose: 1 patch Lorazepam (Ativan -) 1 mg PO Q12H PRN PRN Reason: AGITATION Last Admin: 11/12/18 11:26 Dose: 1 mg Magnesium Oxide (Mag-Ox -) 400 mg PO BID [facility] Last Admin: 11/12/18 09:49 Dose: 400 mg Metoprolol Succinate (Toprol Xl -) 100 mg PO BID [facility] Last Admin: 11/12/18 09:48 Dose: 100 mg Miscellaneous (Lidoderm Patch Removal) 1 each [facility] DAILY@2200 [facility] Multivitamins/Minerals/Vitamin C (Tab-A-Vit -) 1 tab PO DAILY [facility] Last Admin: 11/12/18 09:49 Dose: 1 tab Pantoprazole Sodium (Protonix -) 40 mg PO DAILY [facility] Last Admin: 11/12/18 09:50 Dose: 40 mg Quetiapine Fumarate (Seroquel -) 25 mg PO BID [facility] Last Admin: 11/12/18 09:47 Dose: Not Given Rosuvastatin Calcium (Crestor -) 10 mg PO DAILY [facility] Last Admin: 11/12/18 09:47 Dose: 10 mg Sertraline HCl (Zoloft -) 25 mg PO DAILY [facility] Last Admin: 11/12/18 09:46 Dose: Not Given Thiamine HCl (Vitamin B1 -) 100 mg PO DAILY [facility] Last Admin: 11/12/18 09:51 Dose: 100 mg - Objective Vital Signs: Vital Signs Temperature 98.2 F 11/12/18 14:33 Pulse Rate 92 H 11/12/18 14:33 Respiratory Rate 20 11/12/18 14:33 Blood Pressure 151/92 11/12/18 14:33 O2 Sat by Pulse Oximetry (%) 99 11/12/18 09:00 Constitutional: Yes: No Distress Eyes: Yes: WNL HENT: Yes: WNL Neck: Yes: WNL Cardiovascular: Yes: Pulse Irregular (NL S1S2 No MRHG) Respiratory: Yes: Rales (Bibasilar rales) Gastrointestinal: Yes: Soft Extremities: Yes: WNL Edema: No Edema: LLE: Trace, RLE: Trace Neurological: Yes: Alert, Oriented Labs: CBC, BMP 11/12/18 05:20 11/12/18 05:20 INR, PTT INR 1.13 (0.83-1.09) H 11/05/18 07:45 Assessment/Plan 68 year old female with a PMH of AFIB (currently not on AC), depression, HLD, HTN, UC, history of GI bleeding and chronic ETOH. Presently awaiting a bed at [facility]. She has RUSSELL and is SOB walking to the bathroom. An echocardiogram is pending. Rule out CHF Awaiting echocardiogram results Obtain a BNP Continue Metoprolol XL 100 mg PO daily Will follow with you
--- NOTE | 2018-11-12 17:45 | PN ---
Progress Note, Physician History of Present Illness: C/O DYSPNEA BUT LOOKS MORE COMFORTABLE DRY COUGH NO C/O FEVER/ CHILLS AFEBRILE - Current Medication List Current Medications: Active Medications Acetaminophen (Tylenol -) 650 mg PO Q6H PRN PRN Reason: PAIN LEVEL 1-5 Last Admin: 11/09/18 14:27 Dose: 650 mg Albuterol Sulfate (Ventolin 0.083% Nebulizer Soln -) 1 amp NEB RQID PRN PRN Reason: SHORT OF BREATH/WHEEZING Aspirin (Asa -) 81 mg PO DAILY [facility] Last Admin: 11/12/18 09:46 Dose: 81 mg Calcium Carbonate/Cholecalciferol (Os-Hardik 500+D -) 2 tab PO DAILY [facility] Last Admin: 11/12/18 09:49 Dose: 2 tab Cyanocobalamin (Vitamin B12 -) 1,000 mcg PO DAILY [facility] Last Admin: 11/12/18 09:46 Dose: 1,000 mcg Folic Acid (Folic Acid -) 1 mg PO DAILY [facility] Last Admin: 11/12/18 09:50 Dose: 1 mg Ceftriaxone Sodium 2 gm/ (Dextrose) 100 mls @ 200 mls/hr IVPB DAILY [facility]; Protocol Last Admin: 11/12/18 09:49 Dose: 200 mls/hr Ibuprofen (Motrin -) 400 mg PO Q6H PRN PRN Reason: PAIN LEVEL 4 - 6 Last Admin: 11/11/18 18:12 Dose: 400 mg Lactulose (Cephulac (Oral Use)) 20 gm PO BID [facility] Last Admin: 11/12/18 09:44 Dose: Not Given Lidocaine (Lidoderm Patch -) 1 patch TP DAILY [facility] Last Admin: 11/12/18 13:05 Dose: 1 patch Lorazepam (Ativan -) 1 mg PO Q12H PRN PRN Reason: AGITATION Last Admin: 11/12/18 11:26 Dose: 1 mg Magnesium Oxide (Mag-Ox -) 400 mg PO BID [facility] Last Admin: 11/12/18 09:49 Dose: 400 mg Metoprolol Succinate (Toprol Xl -) 100 mg PO BID [facility] Last Admin: 11/12/18 09:48 Dose: 100 mg Miscellaneous (Lidoderm Patch Removal) 1 each MC DAILY@2200 [facility] Multivitamins/Minerals/Vitamin C (Tab-A-Vit -) 1 tab PO DAILY [facility] Last Admin: 11/12/18 09:49 Dose: 1 tab Pantoprazole Sodium (Protonix -) 40 mg PO DAILY [facility] Last Admin: 11/12/18 09:50 Dose: 40 mg Quetiapine Fumarate (Seroquel -) 25 mg PO BID [facility] Last Admin: 11/12/18 09:47 Dose: Not Given Rosuvastatin Calcium (Crestor -) 10 mg PO DAILY [facility] Last Admin: 11/12/18 09:47 Dose: 10 mg Sertraline HCl (Zoloft -) 25 mg PO DAILY [facility] Last Admin: 11/12/18 09:46 Dose: Not Given Thiamine HCl (Vitamin B1 -) 100 mg PO DAILY [facility] Last Admin: 11/12/18 09:51 Dose: 100 mg - Objective Vital Signs: Vital Signs Temperature 98.2 F 11/12/18 14:33 Pulse Rate 92 H 11/12/18 14:33 Respiratory Rate 20 11/12/18 14:33 Blood Pressure 151/92 11/12/18 14:33 O2 Sat by Pulse Oximetry (%) 99 11/12/18 09:00 Constitutional: Yes: No Distress Eyes: Yes: Conjunctiva Clear Cardiovascular: Yes: Regular Rate and Rhythm, S1, S2 Respiratory: Yes: Diminished Gastrointestinal: Yes: Normal Bowel Sounds, Soft Edema: No Labs: CBC, BMP 11/12/18 05:20 11/12/18 05:20 INR, PTT INR 1.13 (0.83-1.09) H 11/05/18 07:45 Assessment/Plan R/O HCAP ? CHF CONTINUE EMPIRIC CEFTRIAXONE
[2018-11-12] MEDS: LIDOCAINE PATCH REMOVAL MC SCH (23:22)
[2018-11-13] MEDS: LORazepam 1 MG TABLET PO PRN ×3 (01:36→22:08)
[2018-11-13] MEDS ORDERED: DEXTROSE 5%-WATER 100 ML IVPB ONE (07:39)
[2018-11-13 07:52] LABS: HEMATOCRIT 23.7 % (32.4-45.2); HEMOGLOBIN 7.5 GM/dL (10.7-15.3); MCH 28.3 pg (25.7-33.7); MCHC 31.6 g/dl (32.0-36.0); MEAN CELL VOLUME 89.5 fl (80-96); MEAN PLT VOLUME 10.9 fl (7.5-11.1); PLATELET COUNT 96 K/MM3 (134-434); RBC 2.65 M/mm3 (3.60-5.2); RDW 16.3 % (11.6-15.6); WHITE BLOOD COUNT 4.3 K/mm3 (4.0-10.0)
[2018-11-13 09:13] LABS: ALBUMIN 2.6 g/dl (3.4-5.0); BILIRUBIN,TOTAL 0.8 mg/dL (0.2-1); BLOOD UREA NITROGEN 11.7 mg/dL (7-18); CALCIUM 8.4 mg/dL (8.5-10.1); CREATININE 0.9 mg/dL (0.55-1.3); POTASSIUM 3.7 mmol/L (3.5-5.1); TOT PROT 5.8 g/dl (6.4-8.2)
[2018-11-13] MEDS: CEFTRIAXONE 2 GM in DEXTROSE 5%-WATER 100 ML IVPB SCH (10:41)
[2018-11-13] MEDS: MAGNESIUM OXIDE 400 MG TABLET (FP) PO SCH ×2 (10:41→22:07)
[2018-11-13] MEDS: MULTIVITAMINS (DAILY MVI) TABLET (FP) PO SCH (10:41)
[2018-11-13] MEDS: ASPIRIN 81 MG CHEWABLE TABLETS PO SCH (10:41)
[2018-11-13] MEDS: PANTOPRAZOLE 40 MG TABLET (FP) PO SCH (10:42)
[2018-11-13] MEDS: THIAMINE HCL 100 MG TABLET (FP) PO SCH (10:42)
[2018-11-13] MEDS: ROSUVASTATIN CA 10 MG TABLET (FP) PO SCH (10:42)
[2018-11-13] MEDS: FOLIC ACID 1 MG TABLET (FP) PO SCH (10:42)
[2018-11-13] MEDS: LIDOCAINE 5% TOPICAL PATCH TP SCH (10:42)
[2018-11-13] MEDS: CYANOCOBALAMIN 1,000 MCG TABLET (FP) PO SCH (10:42)
[2018-11-13] MEDS: QUEtiapine FUMARATE 25 MG TABLET (FP) PO SCH ×3 (10:43→22:12)
[2018-11-13] MEDS: LACTULOSE 20 GM/30 ML UDC (FOR ORAL USE ONLY) PO SCH ×3 (10:43→22:11)
[2018-11-13] MEDS: CALCIUM 500MG/VIT-D 200 UNITS COMBO TABLET (FP) PO SCH (10:43)
[2018-11-13] MEDS: SERTRALINE HCL 25 MG TABLET (FP) PO SCH (10:43)
--- NOTE | 2018-11-13 11:40 | PN ---
Progress Note, Physician History of Present Illness: pulmonary alert,feeling better,less dyspneic,+ cough - Current Medication List Current Medications: Active Medications Acetaminophen (Tylenol -) 650 mg PO Q6H PRN PRN Reason: PAIN LEVEL 1-5 Last Admin: 11/09/18 14:27 Dose: 650 mg Albuterol Sulfate (Ventolin 0.083% Nebulizer Soln -) 1 amp NEB RQID PRN PRN Reason: SHORT OF BREATH/WHEEZING Aspirin (Asa -) 81 mg PO DAILY [facility] Last Admin: 11/13/18 10:41 Dose: 81 mg Calcium Carbonate/Cholecalciferol (Os-Hardik 500+D -) 2 tab PO DAILY [facility] Last Admin: 11/13/18 10:43 Dose: 2 tab Cyanocobalamin (Vitamin B12 -) 1,000 mcg PO DAILY [facility] Last Admin: 11/13/18 10:42 Dose: 1,000 mcg Folic Acid (Folic Acid -) 1 mg PO DAILY [facility] Last Admin: 11/13/18 10:42 Dose: 1 mg Ceftriaxone Sodium 2 gm/ (Dextrose) 100 mls @ 200 mls/hr IVPB DAILY [facility]; Protocol Last Admin: 11/13/18 10:41 Dose: 200 mls/hr Ibuprofen (Motrin -) 400 mg PO Q6H PRN PRN Reason: PAIN LEVEL 4 - 6 Last Admin: 11/11/18 18:12 Dose: 400 mg Lactulose (Cephulac (Oral Use)) 20 gm PO BID [facility] Last Admin: 11/13/18 10:43 Dose: 20 gm Lidocaine (Lidoderm Patch -) 1 patch TP DAILY [facility] Last Admin: 11/13/18 10:42 Dose: Not Given Lorazepam (Ativan -) 1 mg PO Q12H PRN PRN Reason: AGITATION Last Admin: 11/13/18 01:36 Dose: 1 mg Magnesium Oxide (Mag-Ox -) 400 mg PO BID [facility] Last Admin: 11/13/18 10:41 Dose: 400 mg Metoprolol Succinate (Toprol Xl -) 100 mg PO BID [facility] Last Admin: 11/13/18 10:41 Dose: 100 mg Miscellaneous (Lidoderm Patch Removal) 1 each MC DAILY@2200 [facility] Last Admin: 11/12/18 23:22 Dose: 1 each Multivitamins/Minerals/Vitamin C (Tab-A-Vit -) 1 tab PO DAILY [facility] Last Admin: 11/13/18 10:41 Dose: 1 tab Pantoprazole Sodium (Protonix -) 40 mg PO DAILY [facility] Last Admin: 11/13/18 10:42 Dose: 40 mg Quetiapine Fumarate (Seroquel -) 25 mg PO BID [facility] Last Admin: 11/13/18 10:43 Dose: Not Given Rosuvastatin Calcium (Crestor -) 10 mg PO DAILY [facility] Last Admin: 11/13/18 10:42 Dose: 10 mg Sertraline HCl (Zoloft -) 25 mg PO DAILY [facility] Last Admin: 11/13/18 10:43 Dose: Not Given Thiamine HCl (Vitamin B1 -) 100 mg PO DAILY [facility] Last Admin: 11/13/18 10:42 Dose: 100 mg - Objective Vital Signs: Vital Signs Temperature 98.1 F 11/13/18 08:47 Pulse Rate 92 H 11/13/18 08:47 Respiratory Rate 18 11/13/18 08:47 Blood Pressure 124/86 11/13/18 08:47 O2 Sat by Pulse Oximetry (%) 93 L 11/13/18 08:47 Constitutional: Yes: Well Nourished, Calm Eyes: Yes: WNL HENT: Yes: WNL Neck: Yes: WNL Cardiovascular: Yes: Pulse Irregular, S1, S2 Respiratory: Yes: Rales (bibasilar rales) Gastrointestinal: Yes: Normal Bowel Sounds, Soft Extremities: Yes: WNL Edema: No Labs: CBC, BMP 11/13/18 06:38 11/13/18 06:38 INR, PTT INR 1.13 (0.83-1.09) H 11/05/18 07:45 Problem List - Problems (1) Alcohol intoxication Code(s): F10.929 - ALCOHOL USE, UNSPECIFIED WITH INTOXICATION, UNSPECIFIED Qualifiers: Complication of substance-induced condition: uncomplicated Qualified Code(s ): F10.920 - Alcohol use, unspecified with intoxication, uncomplicated (2) Atrial fibrillation Code(s): I48.91 - UNSPECIFIED ATRIAL FIBRILLATION Qualifiers: Atrial fibrillation type: chronic Qualified Code(s): I48.2 - Chronic atrial fibrillation (3) CKD (chronic kidney disease) Code(s): N18.9 - CHRONIC KIDNEY DISEASE, UNSPECIFIED (4) SOB (shortness of breath) Code(s): R06.02 - SHORTNESS OF BREATH (5) Chronic a-fib Code(s): I48.2 - CHRONIC ATRIAL FIBRILLATION (6) T2DM (type 2 diabetes mellitus) Code(s): E11.9 - TYPE 2 DIABETES MELLITUS WITHOUT COMPLICATIONS (7) Pneumonia Code(s): J18.9 - PNEUMONIA, UNSPECIFIED ORGANISM (8) CHF (congestive heart failure) Code(s): I50.9 - HEART FAILURE, UNSPECIFIED Assessment/Plan IMP ACUTE RESPIRATORY DISTRESS LIKELY ACUTE CHF ? PNEUMONIA RAPID AFIB HTN DM ETOH ABUSE ANEMIA PLAN ABX PER ID LASIX O2 RATE CONTROL PER CARDIOLOGY F/U CHEST X-RAYS DVT PROPHYLAXIS STRICT I+Os MONITOR H+H NORMAL TRANSFUSION THRESHOLD ECHO DR BEE Problem List - Problems (1) Alcohol intoxication Code(s): F10.929 - ALCOHOL USE, UNSPECIFIED WITH INTOXICATION, UNSPECIFIED Qualifiers: Complication of substance-induced condition: uncomplicated Qualified Code(s ): F10.920 - Alcohol use, unspecified with intoxication, uncomplicated (2) Atrial fibrillation Code(s): I48.91 - UNSPECIFIED ATRIAL FIBRILLATION Qualifiers: Atrial fibrillation type: chronic Qualified Code(s): I48.2 - Chronic atrial fibrillation (3) CKD (chronic kidney disease) Code(s): N18.9 - CHRONIC KIDNEY DISEASE, UNSPECIFIED (4) SOB (shortness of breath) Code(s): R06.02 - SHORTNESS OF BREATH (5) Chronic a-fib Code(s): I48.2 - CHRONIC ATRIAL FIBRILLATION (6) T2DM (type 2 diabetes mellitus) Code(s): E11.9 - TYPE 2 DIABETES MELLITUS WITHOUT COMPLICATIONS (7) Pneumonia Code(s): J18.9 - PNEUMONIA, UNSPECIFIED ORGANISM (8) CHF (congestive heart failure) Code(s): I50.9 - HEART FAILURE, UNSPECIFIED
[2018-11-13 13:17] LABS: BASO % 0.3 % (0-2.0); EOS % 1.3 % (0-4.5); HEMATOCRIT 35.6 % (32.4-45.2); HEMOGLOBIN 11.5 GM/dL (10.7-15.3); LYMPH % 10.1 % (8-40); MCH 28.6 pg (25.7-33.7); MCHC 32.2 g/dl (32.0-36.0); MEAN PLT VOLUME 11.1 fl (7.5-11.1); MONO % 13.5 % (3.8-10.2); NEUT % 74.8 % (42.8-82.8); PLATELET COUNT 138 K/MM3 (134-434); RDW 16.9 % (11.6-15.6); WHITE BLOOD COUNT 6.1 K/mm3 (4.0-10.0)
--- NOTE | 2018-11-13 13:51 | ECHO ---
Name: ALICIA CHIQUITACONCHIS Exam:Adult Echocardiogram Study Date: 11/12/2018 01:34 PM Age: 68 yrs Reason For Study: SOB CHF Height: 64 in Weight: 162 lb BSA: 1.8 m2 MMode/2D Measurements & Calculations IVSd: 1.0 cm ACS: 1.3 cm LVIDd: 4.3 cm LVIDs: 3.5 cm LVPWd: 1.5 cm EDV(Teich): 82.6 ml LVOT diam: 1.8 cm ESV(Teich): 49.5 ml RV S Jude: 10.0 cm/sec Doppler Measurements & Calculations Ao V2 max: 124.0 cm/sec LV V1 max P.5 mmHg Ao max P.2 mmHg LV V1 mean P.0 mmHg Ao V2 mean: 86.8 cm/sec LV V1 max: 79.3 cm/sec Ao mean P.0 mmHg LV V1 mean: 50.0 cm/sec Ao V2 VTI: 19.5 cm LV V1 VTI: 15.1 cm KP(I,D): 2.0 cm2 KP(V,D): 1.6 cm2 MR max jude: 472.5 cm/sec SV(LVOT): 38.4 ml MR max P.4 mmHg TR max jude: 253.0 cm/sec Med Peak E' Jued: 9.5 cm/sec TR max P.6 mmHg Left Ventricle Moderate to severly decreased LV function. The ER is 35 - 40%. Right Ventricle Moderate to severely reduced RV function. Atria Left atrial enlargement. Right atrial enlargement. Mitral Valve The mitral valve is grossly normal. There is moderate to severe mitral regurgitation. Tricuspid Valve The tricuspid valve is not well visualized, but is grossly normal. There is moderate to severe tricus pid regurgitation. Aortic Valve Fibrocalcific changes of the AV withour . Pulmonic Valve The pulmonic valve is not well seen, but is grossly normal. Great Vessels The aortic root is normal size. Pericardium/Pleura There is no pericardial effusion. Interpretation Summary Moderate to severly decreased LV function. The ER is 35 - 40% Moderate to severely reduced RV function. Left atrial enlargement. Right atrial enlargement. The mitral valve is grossly normal. There is moderate to severe mitral regurgitation. There is moderate to severe tricuspid regurgitation. Fibrocalcific changes of the AV withour . The patient was in atrial fibrillation during this exam. MD Jakub Jerome 11/13/2018 01:50 PM
--- NOTE | 2018-11-13 15:51 | PN ---
Progress Note, Physician Chief Complaint: ETOH Abuse Alcoholic Fatty Liver History of Present Illness: Previous notes and events reviewed awake and alert NAD complain of worsening SOB on exertion - Current Medication List Current Medications: Active Medications Acetaminophen (Tylenol -) 650 mg PO Q6H PRN PRN Reason: PAIN LEVEL 1-5 Last Admin: 11/09/18 14:27 Dose: 650 mg Albuterol Sulfate (Ventolin 0.083% Nebulizer Soln -) 1 amp NEB RQID PRN PRN Reason: SHORT OF BREATH/WHEEZING Aspirin (Asa -) 81 mg PO DAILY [facility] Last Admin: 11/13/18 10:41 Dose: 81 mg Calcium Carbonate/Cholecalciferol (Os-Hardik 500+D -) 2 tab PO DAILY [facility] Last Admin: 11/13/18 10:43 Dose: 2 tab Cyanocobalamin (Vitamin B12 -) 1,000 mcg PO DAILY [facility] Last Admin: 11/13/18 10:42 Dose: 1,000 mcg Folic Acid (Folic Acid -) 1 mg PO DAILY [facility] Last Admin: 11/13/18 10:42 Dose: 1 mg Ceftriaxone Sodium 2 gm/ (Dextrose) 100 mls @ 200 mls/hr IVPB DAILY [facility]; Protocol Last Admin: 11/13/18 10:41 Dose: 200 mls/hr Lactulose (Cephulac (Oral Use)) 20 gm PO BID [facility] Last Admin: 11/13/18 10:43 Dose: 20 gm Lidocaine (Lidoderm Patch -) 1 patch TP DAILY [facility] Last Admin: 11/13/18 10:42 Dose: Not Given Lorazepam (Ativan -) 1 mg PO Q12H PRN PRN Reason: AGITATION Last Admin: 11/13/18 13:05 Dose: 1 mg Magnesium Oxide (Mag-Ox -) 400 mg PO BID [facility] Last Admin: 11/13/18 10:41 Dose: 400 mg Metoprolol Succinate (Toprol Xl -) 100 mg PO BID [facility] Last Admin: 11/13/18 10:41 Dose: 100 mg Miscellaneous (Lidoderm Patch Removal) 1 each MC DAILY@2200 [facility] Last Admin: 11/12/18 23:22 Dose: 1 each Multivitamins/Minerals/Vitamin C (Tab-A-Vit -) 1 tab PO DAILY [facility] Last Admin: 11/13/18 10:41 Dose: 1 tab Pantoprazole Sodium (Protonix -) 40 mg PO DAILY [facility] Last Admin: 11/13/18 10:42 Dose: 40 mg Quetiapine Fumarate (Seroquel -) 25 mg PO BID [facility] Last Admin: 11/13/18 10:43 Dose: Not Given Rosuvastatin Calcium (Crestor -) 10 mg PO DAILY [facility] Last Admin: 11/13/18 10:42 Dose: 10 mg Sertraline HCl (Zoloft -) 25 mg PO DAILY [facility] Last Admin: 11/13/18 10:43 Dose: Not Given Thiamine HCl (Vitamin B1 -) 100 mg PO DAILY [facility] Last Admin: 11/13/18 10:42 Dose: 100 mg - Objective Vital Signs: Vital Signs Temperature 97.5 F L 11/13/18 13:00 Pulse Rate 104 H 11/13/18 13:00 Respiratory Rate 18 11/13/18 13:00 Blood Pressure 138/92 11/13/18 13:00 O2 Sat by Pulse Oximetry (%) 93 L 11/13/18 08:47 Constitutional: Yes: No Distress, Calm Eyes: Yes: Conjunctiva Clear HENT: Yes: Atraumatic Cardiovascular: Yes: Pulse Irregular Respiratory: Yes: CTA Bilaterally, Diminished, On Nasal O2 Gastrointestinal: Yes: Normal Bowel Sounds, Soft Musculoskeletal: Yes: Muscle Weakness Extremities: Yes: WNL Edema: No Neurological: Yes: Alert, Oriented Psychiatric: Yes: Alert, Oriented Labs: CBC, BMP 11/13/18 12:27 11/13/18 06:38 INR, PTT INR 1.13 (0.83-1.09) H 11/05/18 07:45 Microbiology 11/12/18 16:23 Urine For Antigen Detection Legionella Antigen - Final 11/12/18 16:23 Urine For Antigen Detection Streptococcus pneumoniae Antigen (M - Final 11/11/18 16:00 Urine - Urine Clean Catch Urine Culture - Preliminary 11/11/18 19:00 Blood - Peripheral Venous Blood Culture - Preliminary NO GROWTH OBTAINED AFTER 24 HOURS, INCUBATION TO CONTINUE FOR 4 DAYS. 11/11/18 17:05 Blood - Peripheral Venous Blood Culture - Preliminary NO GROWTH OBTAINED AFTER 24 HOURS, INCUBATION TO CONTINUE FOR 4 DAYS. - ....Imaging Other: Report Reviewed (Echocardiogram) Problem List - Problems (1) Atrial fibrillation Assessment/Plan: -cardiology on board -Aspirin and Metoprolol Code(s): I48.91 - UNSPECIFIED ATRIAL FIBRILLATION Qualifiers: Atrial fibrillation type: chronic Qualified Code(s): I48.2 - Chronic atrial fibrillation (2) Rhabdomyolysis Assessment/Plan: -CK 204 -IV hydration Code(s): M62.82 - RHABDOMYOLYSIS Qualifiers: Rhabdomyolysis type: non-traumatic Qualified Code(s): M62.82 - Rhabdomyolysis (3) Abdominal pain Assessment/Plan: -Zofran prn for nausea -Abdominal US shows fatty infiltration of liver--GI follow up as outpatient Code(s): R10.9 - UNSPECIFIED ABDOMINAL PAIN Qualifiers: Abdominal location: generalized Qualified Code(s): R10.84 - Generalized abdominal pain (4) Alcohol dependence Assessment/Plan: -consult for Dr Bishop -Librium taper completed -psych on board -fall precaution -Thiamine, Folic acid, MVI -Detox placement for discharge Code(s): F10.20 - ALCOHOL DEPENDENCE, UNCOMPLICATED Qualifiers: Substance use status: unspecified alcohol-induced disorder Qualified Code(s ): F10.29 - Alcohol dependence with unspecified alcohol-induced disorder (5) Depression Assessment/Plan: -psych consult -Zoloft -Seroquel BID -Ativan 1mg po q12h prn for anxiety Code(s): F32.9 - MAJOR DEPRESSIVE DISORDER, SINGLE EPISODE, UNSPECIFIED (6) HTN (hypertension) Assessment/Plan: -low Na diet Code(s): I10 - ESSENTIAL (PRIMARY) HYPERTENSION (7) SOB (shortness of breath) Assessment/Plan: -CXR shows new bibasilar infiltrates with fluid and atelectasis with congestive changes -Pulm and ID consult -Ceftriaxone -bronchodilator -O2 via NC -keep SpO2 >90% -Urine Legionella neg Code(s): R06.02 - SHORTNESS OF BREATH (8) CHF (congestive heart failure) Assessment/Plan: -Cardiology and Pulm on board -Echo with EF 35-40% -1L fluid restriction -whalen weights -BNP [id number] Code(s): I50.9 - HEART FAILURE, UNSPECIFIED Assessment/Plan see problem list dvt ppx
--- NOTE | 2018-11-13 16:35 | PN ---
Progress Note, Physician Chief Complaint: RUSSELL Fatigue History of Present Illness: This is a 68 year old female with a PMH of AFIB (currently not on AC), depression, HLD, HTN, UC, history of GI bleeding and chronic ETOH. Presently awaiting a bed [facility]. She has RUSSELL and is SOB walking to the bathroom. Echocardiogram 11/12/18 Moderate to severely decreased LV function Moderate to severely decreased RV function Left atrial enlargement Right atrial enlargement There is moderate MR - Current Medication List Current Medications: Active Medications Acetaminophen (Tylenol -) 650 mg PO Q6H PRN PRN Reason: PAIN LEVEL 1-5 Last Admin: 11/09/18 14:27 Dose: 650 mg Albuterol Sulfate (Ventolin 0.083% Nebulizer Soln -) 1 amp NEB RQID PRN PRN Reason: SHORT OF BREATH/WHEEZING Aspirin (Asa -) 81 mg PO DAILY [facility] Last Admin: 11/13/18 10:41 Dose: 81 mg Calcium Carbonate/Cholecalciferol (Os-Hardik 500+D -) 2 tab PO DAILY [facility] Last Admin: 11/13/18 10:43 Dose: 2 tab Cyanocobalamin (Vitamin B12 -) 1,000 mcg PO DAILY [facility] Last Admin: 11/13/18 10:42 Dose: 1,000 mcg Folic Acid (Folic Acid -) 1 mg PO DAILY [facility] Last Admin: 11/13/18 10:42 Dose: 1 mg Ceftriaxone Sodium 2 gm/ (Dextrose) 100 mls @ 200 mls/hr IVPB DAILY [facility]; Protocol Last Admin: 11/13/18 10:41 Dose: 200 mls/hr Lactulose (Cephulac (Oral Use)) 20 gm PO BID [facility] Last Admin: 11/13/18 10:43 Dose: 20 gm Lidocaine (Lidoderm Patch -) 1 patch TP DAILY [facility] Last Admin: 11/13/18 10:42 Dose: Not Given Lorazepam (Ativan -) 1 mg PO Q12H PRN PRN Reason: AGITATION Last Admin: 11/13/18 13:05 Dose: 1 mg Magnesium Oxide (Mag-Ox -) 400 mg PO BID [facility] Last Admin: 11/13/18 10:41 Dose: 400 mg Metoprolol Succinate (Toprol Xl -) 100 mg PO BID [facility] Last Admin: 11/13/18 10:41 Dose: 100 mg Miscellaneous (Lidoderm Patch Removal) 1 each MC DAILY@2200 [facility] Last Admin: 11/12/18 23:22 Dose: 1 each Multivitamins/Minerals/Vitamin C (Tab-A-Vit -) 1 tab PO DAILY [facility] Last Admin: 11/13/18 10:41 Dose: 1 tab Pantoprazole Sodium (Protonix -) 40 mg PO DAILY [facility] Last Admin: 11/13/18 10:42 Dose: 40 mg Quetiapine Fumarate (Seroquel -) 25 mg PO BID [facility] Last Admin: 11/13/18 10:43 Dose: Not Given Rosuvastatin Calcium (Crestor -) 10 mg PO DAILY [facility] Last Admin: 11/13/18 10:42 Dose: 10 mg Sertraline HCl (Zoloft -) 25 mg PO DAILY [facility] Last Admin: 11/13/18 10:43 Dose: Not Given Thiamine HCl (Vitamin B1 -) 100 mg PO DAILY [facility] Last Admin: 11/13/18 10:42 Dose: 100 mg - Objective Vital Signs: Vital Signs Temperature 97.5 F L 11/13/18 13:00 Pulse Rate 104 H 11/13/18 13:00 Respiratory Rate 18 11/13/18 13:00 Blood Pressure 138/92 11/13/18 13:00 O2 Sat by Pulse Oximetry (%) 93 L 11/13/18 08:47 Constitutional: Yes: No Distress Eyes: Yes: WNL HENT: Yes: WNL Neck: Yes: WNL Cardiovascular: Yes: Pulse Irregular, S1, S2 Respiratory: Yes: CTA Bilaterally Gastrointestinal: Yes: Normal Bowel Sounds, Soft Extremities: Yes: WNL Neurological: Yes: Alert, Oriented Labs: CBC, BMP 11/13/18 12:27 11/13/18 06:38 INR, PTT INR 1.13 (0.83-1.09) H 11/05/18 07:45 Assessment/Plan 68 year old female with a PMH of AFIB (currently not on AC), depression, HLD, HTN, UC, history of GI bleeding and chronic ETOH. Presently awaiting a bed at [facility]. She has RUSSELL and is SOB walking to the bathroom. Echocardiogram 11/12/18 Moderate to severely decreased LV function Moderate to severely decreased RV function Left atrial enlargement Right atrial enlargement There is moderate MR EF 35-40% Systolic CHF Continue Beta Blockers Recommend abstaining from ETOH (good chance her LV function will improve if she does) Would start a low dose KAMLA, Lisinopril 2.5 mg PO daily
[2018-11-13] MEDS: LIDOCAINE PATCH REMOVAL MC SCH (22:11)
[2018-11-13] MEDS: ACETAMINOPHEN 325 MG TABLET (FP) PO PRN (23:21)
[2018-11-14 08:54] LABS: ALBUMIN 2.7 g/dl (3.4-5.0); BILIRUBIN,TOTAL 0.8 mg/dL (0.2-1); BLOOD UREA NITROGEN 11.3 mg/dL (7-18); CALCIUM 8.6 mg/dL (8.5-10.1); CREATININE 0.9 mg/dL (0.55-1.3); POTASSIUM 3.9 mmol/L (3.5-5.1)
[2018-11-14] MEDS ORDERED: ONDANSETRON 4 MG/2 ML VIAL IVPB ONE (09:32)
[2018-11-14] MEDS ORDERED: DEXTROSE 5%-WATER 100 ML IVPB ONE (09:36)
[2018-11-14] MEDS: CEFTRIAXONE 2 GM in DEXTROSE 5%-WATER 100 ML IVPB SCH (09:48)
[2018-11-14] MEDS: LIDOCAINE 5% TOPICAL PATCH TP SCH (09:51)
[2018-11-14] MEDS: LACTULOSE 20 GM/30 ML UDC (FOR ORAL USE ONLY) PO SCH ×2 (09:51→21:03)
[2018-11-14] MEDS: LORazepam 1 MG TABLET PO PRN ×2 (09:51→21:03)
[2018-11-14] MEDS: MAGNESIUM OXIDE 400 MG TABLET (FP) PO SCH ×2 (09:51→21:01)
[2018-11-14] MEDS: MULTIVITAMINS (DAILY MVI) TABLET (FP) PO SCH (09:51)
[2018-11-14] MEDS: ROSUVASTATIN CA 10 MG TABLET (FP) PO SCH (09:52)
[2018-11-14] MEDS: ASPIRIN 81 MG CHEWABLE TABLETS PO SCH (09:52)
[2018-11-14] MEDS: PANTOPRAZOLE 40 MG TABLET (FP) PO SCH (09:52)
[2018-11-14] MEDS: THIAMINE HCL 100 MG TABLET (FP) PO SCH (09:52)
[2018-11-14] MEDS: FOLIC ACID 1 MG TABLET (FP) PO SCH (09:52)
[2018-11-14] MEDS: QUEtiapine FUMARATE 25 MG TABLET (FP) PO SCH ×2 (09:52→21:01)
[2018-11-14] MEDS: SERTRALINE HCL 25 MG TABLET (FP) PO SCH (09:52)
[2018-11-14] MEDS: CALCIUM 500MG/VIT-D 200 UNITS COMBO TABLET (FP) PO SCH (09:53)
[2018-11-14 11:15] LABS: HEMATOCRIT 32.9 % (32.4-45.2); HEMOGLOBIN 10.6 GM/dL (10.7-15.3); MCH 28.2 pg (25.7-33.7); MCHC 32.3 g/dl (32.0-36.0); MEAN CELL VOLUME 87.4 fl (80-96); MEAN PLT VOLUME 10.6 fl (7.5-11.1); PLATELET COUNT 163 K/MM3 (134-434); RBC 3.76 M/mm3 (3.60-5.2); WHITE BLOOD COUNT 5.4 K/mm3 (4.0-10.0)
[2018-11-14] MEDS ORDERED: LISINOPRIL 5 MG TABLET (FP) PO ONE (12:15)
--- NOTE | 2018-11-14 12:31 | PN ---
Progress Note (short form) - Note Progress Note: Breathing feels better. Less SOB. No CP. Residual cough. No acute events overnight. Intake & Output 11/11/18 11/12/18 11/13/18 11/14/18 23:59 23:59 23:59 23:59 Intake Total 700 1340 1300 300 Balance 700 1340 1300 300 Weight 162 lb Last Vital Signs Temp Pulse Resp BP Pulse Ox 98.2 F 116 H 20 150/102 H 97 11/14/18 10:00 11/14/18 10:00 11/14/18 10:00 11/14/18 10:00 11/14/18 09:00 Active Medications Acetaminophen (Tylenol -) 650 mg PO Q6H PRN PRN Reason: PAIN LEVEL 1-5 Last Admin: 11/13/18 23:21 Dose: 650 mg Albuterol Sulfate (Ventolin 0.083% Nebulizer Soln -) 1 amp NEB RQID PRN PRN Reason: SHORT OF BREATH/WHEEZING Last Admin: 11/13/18 18:55 Dose: 1 amp Aspirin (Asa -) 81 mg PO DAILY [facility] Last Admin: 11/14/18 09:52 Dose: 81 mg Calcium Carbonate/Cholecalciferol (Os-Hardik 500+D -) 2 tab PO DAILY [facility] Last Admin: 11/14/18 09:53 Dose: 2 tab Cyanocobalamin (Vitamin B12 -) 1,000 mcg PO DAILY [facility] Last Admin: 11/13/18 10:42 Dose: 1,000 mcg Folic Acid (Folic Acid -) 1 mg PO DAILY [facility] Last Admin: 11/14/18 09:52 Dose: 1 mg Ceftriaxone Sodium 2 gm/ (Dextrose) 100 mls @ 200 mls/hr IVPB DAILY [facility]; Protocol Last Admin: 11/14/18 09:48 Dose: 200 mls/hr Lactulose (Cephulac (Oral Use)) 20 gm PO BID [facility] Last Admin: 11/14/18 09:51 Dose: 20 gm Lidocaine (Lidoderm Patch -) 1 patch TP DAILY [facility] Last Admin: 11/14/18 09:51 Dose: 1 patch Lorazepam (Ativan -) 1 mg PO Q12H PRN PRN Reason: AGITATION Last Admin: 11/14/18 09:51 Dose: 1 mg Magnesium Oxide (Mag-Ox -) 400 mg PO BID [facility] Last Admin: 11/14/18 09:51 Dose: 400 mg Metoprolol Succinate (Toprol Xl -) 100 mg PO BID [facility] Last Admin: 11/14/18 09:52 Dose: 100 mg Miscellaneous (Lidoderm Patch Removal) 1 each MC DAILY@2200 [facility] Last Admin: 11/13/18 22:11 Dose: 1 each Multivitamins/Minerals/Vitamin C (Tab-A-Vit -) 1 tab PO DAILY [facility] Last Admin: 11/14/18 09:51 Dose: 1 tab Pantoprazole Sodium (Protonix -) 40 mg PO DAILY [facility] Last Admin: 11/14/18 09:52 Dose: 40 mg Quetiapine Fumarate (Seroquel -) 25 mg PO BID [facility] Last Admin: 11/14/18 09:52 Dose: 25 mg Rosuvastatin Calcium (Crestor -) 10 mg PO DAILY [facility] Last Admin: 11/14/18 09:52 Dose: 10 mg Sertraline HCl (Zoloft -) 25 mg PO DAILY [facility] Last Admin: 11/14/18 09:52 Dose: 25 mg Thiamine HCl (Vitamin B1 -) 100 mg PO DAILY [facility] Last Admin: 11/14/18 09:52 Dose: 100 mg Constitutional: Yes: NAD Eyes: Yes: WNL HENT: Yes: WNL Neck: Yes: WNL Cardiovascular: Yes: Pulse Irregular, S1, S2 Respiratory: Yes: Bibasilar rales Gastrointestinal: Yes: Normal Bowel Sounds, Soft Extremities: Yes: WNL Edema: No Labs: Laboratory Results - last 24 hr 11/13/18 11/14/18 11/14/18 12:27 07:25 10:24 WBC 6.1 5.4 RBC 4.00 3.76 Hgb 11.5 10.6 L Hct 35.6 D 32.9 MCV 89.0 87.4 MCH 28.6 28.2 MCHC 32.2 32.3 RDW 16.9 H 16.0 H Plt Count 138 D 163 MPV 11.1 10.6 Absolute Neuts (auto) 4.5 Neutrophils % 74.8 Lymphocytes % 10.1 D Monocytes % 13.5 H Eosinophils % 1.3 D Basophils % 0.3 Nucleated RBC % 0 Sodium 141 Potassium 3.9 Chloride 102 Carbon Dioxide 30 Anion Gap 9 BUN 11.3 Creatinine 0.9 Est GFR (CKD-EPI)AfAm 76.68 Est GFR (CKD-EPI)NonAf 66.16 Random Glucose 99 Calcium 8.6 Total Bilirubin 0.8 AST 19 ALT 30 Alkaline Phosphatase 140 H Total Protein 6.0 L Albumin 2.7 L Problem List - Problems (1) Alcohol intoxication Code(s): F10.929 - ALCOHOL USE, UNSPECIFIED WITH INTOXICATION, UNSPECIFIED Qualifiers: Complication of substance-induced condition: uncomplicated Qualified Code(s ): F10.920 - Alcohol use, unspecified with intoxication, uncomplicated (2) Atrial fibrillation Code(s): I48.91 - UNSPECIFIED ATRIAL FIBRILLATION Qualifiers: Atrial fibrillation type: chronic Qualified Code(s): I48.2 - Chronic atrial fibrillation (3) CKD (chronic kidney disease) Code(s): N18.9 - CHRONIC KIDNEY DISEASE, UNSPECIFIED (4) SOB (shortness of breath) Code(s): R06.02 - SHORTNESS OF BREATH (5) Chronic a-fib Code(s): I48.2 - CHRONIC ATRIAL FIBRILLATION (6) T2DM (type 2 diabetes mellitus) Code(s): E11.9 - TYPE 2 DIABETES MELLITUS WITHOUT COMPLICATIONS (7) Pneumonia Code(s): J18.9 - PNEUMONIA, UNSPECIFIED ORGANISM (8) CHF (congestive heart failure) Code(s): I50.9 - HEART FAILURE, UNSPECIFIED Assessment/Plan IMP ACUTE RESPIRATORY DISTRESS LIKELY ACUTE CHF R/O PNEUMONIA RAPID AFIB HTN DM ETOH ABUSE ANEMIA PLAN ABX PER ID LASIX O2 RATE CONTROL PER CARDIOLOGY DVT PROPHYLAXIS NORMAL TRANSFUSION THRESHOLD Dr Huynh
[2018-11-14] MEDS: CYANOCOBALAMIN 1,000 MCG TABLET (FP) PO SCH (12:36)
--- NOTE | 2018-11-14 15:12 | PN ---
Progress Note, Physician Chief Complaint: sitting in wheel chair - Current Medication List Current Medications: Active Medications Acetaminophen (Tylenol -) 650 mg PO Q6H PRN PRN Reason: PAIN LEVEL 1-5 Last Admin: 11/13/18 23:21 Dose: 650 mg Albuterol Sulfate (Ventolin 0.083% Nebulizer Soln -) 1 amp NEB RQID PRN PRN Reason: SHORT OF BREATH/WHEEZING Last Admin: 11/13/18 18:55 Dose: 1 amp Aspirin (Asa -) 81 mg PO DAILY [facility] Last Admin: 11/14/18 09:52 Dose: 81 mg Calcium Carbonate/Cholecalciferol (Os-Hardik 500+D -) 2 tab PO DAILY [facility] Last Admin: 11/14/18 09:53 Dose: 2 tab Cyanocobalamin (Vitamin B12 -) 1,000 mcg PO DAILY [facility] Last Admin: 11/14/18 12:36 Dose: 1,000 mcg Folic Acid (Folic Acid -) 1 mg PO DAILY [facility] Last Admin: 11/14/18 09:52 Dose: 1 mg Ceftriaxone Sodium 2 gm/ (Dextrose) 100 mls @ 200 mls/hr IVPB DAILY [facility]; Protocol Last Admin: 11/14/18 09:48 Dose: 200 mls/hr Lactulose (Cephulac (Oral Use)) 20 gm PO BID [facility] Last Admin: 11/14/18 09:51 Dose: 20 gm Lidocaine (Lidoderm Patch -) 1 patch TP DAILY [facility] Last Admin: 11/14/18 09:51 Dose: 1 patch Lisinopril (Prinivil) 2.5 mg PO DAILY [facility] Lorazepam (Ativan -) 1 mg PO Q12H PRN PRN Reason: AGITATION Last Admin: 11/14/18 09:51 Dose: 1 mg Magnesium Oxide (Mag-Ox -) 400 mg PO BID [facility] Last Admin: 11/14/18 09:51 Dose: 400 mg Metoprolol Succinate (Toprol Xl -) 100 mg PO BID [facility] Last Admin: 11/14/18 09:52 Dose: 100 mg Miscellaneous (Lidoderm Patch Removal) 1 each MC DAILY@2200 [facility] Last Admin: 11/13/18 22:11 Dose: 1 each Multivitamins/Minerals/Vitamin C (Tab-A-Vit -) 1 tab PO DAILY [facility] Last Admin: 11/14/18 09:51 Dose: 1 tab Pantoprazole Sodium (Protonix -) 40 mg PO DAILY [facility] Last Admin: 11/14/18 09:52 Dose: 40 mg Quetiapine Fumarate (Seroquel -) 25 mg PO BID [facility] Last Admin: 11/14/18 09:52 Dose: 25 mg Rosuvastatin Calcium (Crestor -) 10 mg PO DAILY [facility] Last Admin: 11/14/18 09:52 Dose: 10 mg Sertraline HCl (Zoloft -) 25 mg PO DAILY [facility] Last Admin: 11/14/18 09:52 Dose: 25 mg Thiamine HCl (Vitamin B1 -) 100 mg PO DAILY [facility] Last Admin: 11/14/18 09:52 Dose: 100 mg - Objective Vital Signs: Vital Signs Temperature 98.2 F 11/14/18 10:00 Pulse Rate 116 H 11/14/18 10:00 Respiratory Rate 20 11/14/18 10:00 Blood Pressure 150/102 H 11/14/18 10:00 O2 Sat by Pulse Oximetry (%) 97 11/14/18 09:00 Constitutional: Yes: Calm Cardiovascular: Yes: Regular Rate and Rhythm, S1, S2 Respiratory: Yes: CTA Bilaterally Gastrointestinal: Yes: Normal Bowel Sounds, Soft Integumentary: Yes: Rash Labs: CBC, BMP 11/14/18 10:24 11/14/18 07:25 INR, PTT INR 1.13 (0.83-1.09) H 11/05/18 07:45 Problem List - Problems (1) Pneumonia Assessment/Plan: rocephin Code(s): J18.9 - PNEUMONIA, UNSPECIFIED ORGANISM (2) CHF (congestive heart failure) Assessment/Plan: EF 35-40% lisinopril low dose started on BB Code(s): I50.9 - HEART FAILURE, UNSPECIFIED Qualifiers: Heart failure type: systolic (3) Atrial fibrillation Assessment/Plan: metoprolol Code(s): I48.91 - UNSPECIFIED ATRIAL FIBRILLATION Qualifiers: Atrial fibrillation type: chronic Qualified Code(s): I48.2 - Chronic atrial fibrillation
--- NOTE | 2018-11-14 15:50 | PN ---
Progress Note, Physician Chief Complaint: RUSSELL Fatigue History of Present Illness: This is a 68 year old female with a PMH of AFIB (currently not on AC), depression, HLD, HTN, UC, history of GI bleeding and chronic ETOH. Presently awaiting a bed at [facility]. She has RUSSELL and is SOB walking to the bathroom. Echocardiogram 11/12/18 Moderate to severely decreased LV function Moderate to severely decreased RV function Left atrial enlargement Right atrial enlargement There is moderate MR Nuclear Stress Test 11/13/18 Normal Perfusion of Myocardium Normal LV function - Current Medication List Current Medications: Active Medications Acetaminophen (Tylenol -) 650 mg PO Q6H PRN PRN Reason: PAIN LEVEL 1-5 Last Admin: 11/13/18 23:21 Dose: 650 mg Albuterol Sulfate (Ventolin 0.083% Nebulizer Soln -) 1 amp NEB RQID PRN PRN Reason: SHORT OF BREATH/WHEEZING Last Admin: 11/13/18 18:55 Dose: 1 amp Aspirin (Asa -) 81 mg PO DAILY [facility] [place] Last Admin: 11/14/18 09:52 Dose: 81 mg Calcium Carbonate/Cholecalciferol (Os-Hardik 500+D -) 2 tab PO DAILY [facility] Last Admin: 11/14/18 09:53 Dose: 2 tab Cyanocobalamin (Vitamin B12 -) 1,000 mcg PO DAILY [facility] [place] Last Admin: 11/14/18 12:36 Dose: 1,000 mcg Folic Acid (Folic Acid -) 1 mg PO DAILY [facility] [place] Last Admin: 11/14/18 09:52 Dose: 1 mg Ceftriaxone Sodium 2 gm/ (Dextrose) 100 mls @ 200 mls/hr IVPB DAILY [facility]; Protocol Last Admin: 11/14/18 09:48 Dose: 200 mls/hr Lactulose (Cephulac (Oral Use)) 20 gm PO BID [facility] Last Admin: 11/14/18 09:51 Dose: 20 gm Lidocaine (Lidoderm Patch -) 1 patch TP DAILY [facility] Last Admin: 11/14/18 09:51 Dose: 1 patch Lisinopril (Prinivil) 2.5 mg PO DAILY [facility] [place] Lorazepam (Ativan -) 1 mg PO Q12H PRN PRN Reason: AGITATION Last Admin: 11/14/18 09:51 Dose: 1 mg Magnesium Oxide (Mag-Ox -) 400 mg PO BID [facility] Last Admin: 11/14/18 09:51 Dose: 400 mg Metoprolol Succinate (Toprol Xl -) 100 mg PO BID [facility] [place] Last Admin: 11/14/18 09:52 Dose: 100 mg Miscellaneous (Lidoderm Patch Removal) 1 each MC DAILY@2200 [facility] Last Admin: 11/13/18 22:11 Dose: 1 each Multivitamins/Minerals/Vitamin C (Tab-A-Vit -) 1 tab PO DAILY [facility] Last Admin: 11/14/18 09:51 Dose: 1 tab Pantoprazole Sodium (Protonix -) 40 mg PO DAILY [facility] [place] Last Admin: 11/14/18 09:52 Dose: 40 mg Quetiapine Fumarate (Seroquel -) 25 mg PO BID [facility] [place] Last Admin: 11/14/18 09:52 Dose: 25 mg Rosuvastatin Calcium (Crestor -) 10 mg PO DAILY [facility] [place] Last Admin: 11/14/18 09:52 Dose: 10 mg Sertraline HCl (Zoloft -) 25 mg PO DAILY [facility] [place] Last Admin: 11/14/18 09:52 Dose: 25 mg Thiamine HCl (Vitamin B1 -) 100 mg PO DAILY [facility] [place] Last Admin: 11/14/18 09:52 Dose: 100 mg - Objective Vital Signs: Vital Signs Temperature 98.1 F 11/14/18 14:00 Pulse Rate 87 11/14/18 14:00 Respiratory Rate 20 11/14/18 10:00 Blood Pressure 111/69 11/14/18 14:00 O2 Sat by Pulse Oximetry (%) 97 11/14/18 09:00 Constitutional: Yes: Mild Distress Eyes: Yes: WNL HENT: Yes: WNL Neck: Yes: WNL Cardiovascular: Yes: Pulse Irregular, S1, S2 Respiratory: Yes: Rales (Bibasilar), Rhonchi (scattered bialteral rhonchi) Edema: LLE: Trace, RLE: Trace Neurological: Yes: Alert, Oriented Labs: CBC, BMP 11/14/18 10:24 11/14/18 07:25 INR, PTT INR 1.13 (0.83-1.09) H 11/05/18 07:45 Assessment/Plan 68 year old female with a PMH of AFIB (currently not on AC), depression, HLD, HTN, UC, history of GI bleeding and chronic ETOH. Presently awaiting a bed at [facility]. She has RUSSELL and is SOB walking to the bathroom. Echocardiogram 11/12/18 Moderate to severely decreased LV function Moderate to severely decreased RV function Left atrial enlargement Right atrial enlargement There is moderate MR EF 35-40% Systolic CHF Continue Beta Blockers Recommend abstaining from ETOH (good chance her LV function will improve if she does) Would start a low dose KAMLA, Lisinopril 2.5 mg PO daily Would also add a Diuretic as she has bibasilar rales, Would give Lasix 40 mg IVSS x1 now and then Lasix 20 mg PO daily Nuclear Stress Test 11/13/18 shows normal perfusion of myocardium
--- NOTE | 2018-11-14 17:49 | PN ---
Progress Note, Physician History of Present Illness: C/O GENERALIZED WEAKNESS C/O DYSPNEA BUT NOT WEARING O2 DRY COUGH NO C/O FEVER/ CHILLS AFEBRILE - Current Medication List Current Medications: Active Medications Acetaminophen (Tylenol -) 650 mg PO Q6H PRN PRN Reason: PAIN LEVEL 1-5 Last Admin: 11/13/18 23:21 Dose: 650 mg Albuterol Sulfate (Ventolin 0.083% Nebulizer Soln -) 1 amp NEB RQID PRN PRN Reason: SHORT OF BREATH/WHEEZING Last Admin: 11/13/18 18:55 Dose: 1 amp Aspirin (Asa -) 81 mg PO DAILY [facility] [place] Last Admin: 11/14/18 09:52 Dose: 81 mg Calcium Carbonate/Cholecalciferol (Os-Hardik 500+D -) 2 tab PO DAILY [facility] Last Admin: 11/14/18 09:53 Dose: 2 tab Cyanocobalamin (Vitamin B12 -) 1,000 mcg PO DAILY [facility] Last Admin: 11/14/18 12:36 Dose: 1,000 mcg Folic Acid (Folic Acid -) 1 mg PO DAILY [facility] [place] Last Admin: 11/14/18 09:52 Dose: 1 mg Ceftriaxone Sodium 2 gm/ (Dextrose) 100 mls @ 200 mls/hr IVPB DAILY [facility] [place]; Protocol Last Admin: 11/14/18 09:48 Dose: 200 mls/hr Lactulose (Cephulac (Oral Use)) 20 gm PO BID [facility] [place] Last Admin: 11/14/18 09:51 Dose: 20 gm Lidocaine (Lidoderm Patch -) 1 patch TP DAILY [facility] [place] Last Admin: 11/14/18 09:51 Dose: 1 patch Lisinopril (Prinivil) 2.5 mg PO DAILY [facility] [place] Lorazepam (Ativan -) 1 mg PO Q12H PRN PRN Reason: AGITATION Last Admin: 11/14/18 09:51 Dose: 1 mg Magnesium Oxide (Mag-Ox -) 400 mg PO BID [facility] [place] Last Admin: 11/14/18 09:51 Dose: 400 mg Metoprolol Succinate (Toprol Xl -) 100 mg PO BID [facility] [place] Last Admin: 11/14/18 09:52 Dose: 100 mg Miscellaneous (Lidoderm Patch Removal) 1 each MC DAILY@2200 [facility] Last Admin: 11/13/18 22:11 Dose: 1 each Multivitamins/Minerals/Vitamin C (Tab-A-Vit -) 1 tab PO DAILY [facility] Last Admin: 11/14/18 09:51 Dose: 1 tab Pantoprazole Sodium (Protonix -) 40 mg PO DAILY [facility] Last Admin: 11/14/18 09:52 Dose: 40 mg Quetiapine Fumarate (Seroquel -) 25 mg PO BID [facility] [place] Last Admin: 11/14/18 09:52 Dose: 25 mg Rosuvastatin Calcium (Crestor -) 10 mg PO DAILY [facility] Last Admin: 11/14/18 09:52 Dose: 10 mg Sertraline HCl (Zoloft -) 25 mg PO DAILY [facility] Last Admin: 11/14/18 09:52 Dose: 25 mg Thiamine HCl (Vitamin B1 -) 100 mg PO DAILY [facility] Last Admin: 11/14/18 09:52 Dose: 100 mg - Objective Vital Signs: Vital Signs Temperature 98.1 F 11/14/18 14:00 Pulse Rate 87 11/14/18 14:00 Respiratory Rate 20 11/14/18 10:00 Blood Pressure 111/69 11/14/18 14:00 O2 Sat by Pulse Oximetry (%) 97 11/14/18 09:00 Constitutional: Yes: No Distress Eyes: Yes: Conjunctiva Clear Cardiovascular: Yes: Regular Rate and Rhythm, S1, S2 Respiratory: Yes: CTA Bilaterally Gastrointestinal: Yes: Normal Bowel Sounds, Soft. No: Tenderness Extremities: Yes: Other (+ PSORIASIS) Edema: No Labs: CBC, BMP 11/14/18 10:24 11/14/18 07:25 INR, PTT INR 1.13 (0.83-1.09) H 11/05/18 07:45 Assessment/Plan R/O HCAP ? CHF CONTINUE EMPIRIC CEFTRIAXONE
[2018-11-14] MEDS: LIDOCAINE PATCH REMOVAL MC SCH (21:03)
[2018-11-15] MEDS ORDERED: ACETAMINOPHEN 325 MG TABLET (FP) PO PRN (02:44)
[2018-11-15] MEDS: LIDOCAINE PATCH REMOVAL MC SCH ×2 (02:49→21:17)
[2018-11-15] MEDS ORDERED: DEXTROSE 5%-WATER 100 ML IVPB ONE (09:49)
[2018-11-15] MEDS: LACTULOSE 20 GM/30 ML UDC (FOR ORAL USE ONLY) PO SCH ×2 (09:51→21:16)
[2018-11-15] MEDS: ASPIRIN 81 MG CHEWABLE TABLETS PO SCH (09:52)
[2018-11-15] MEDS: CYANOCOBALAMIN 1,000 MCG TABLET (FP) PO SCH (09:52)
[2018-11-15] MEDS: QUEtiapine FUMARATE 25 MG TABLET (FP) PO SCH ×3 (09:53→21:16)
[2018-11-15] MEDS: CALCIUM 500MG/VIT-D 200 UNITS COMBO TABLET (FP) PO SCH (09:53)
[2018-11-15] MEDS: SERTRALINE HCL 25 MG TABLET (FP) PO SCH ×2 (09:53→10:17)
[2018-11-15] MEDS: LISINOPRIL 5 MG TABLET (FP) PO SCH (09:58)
[2018-11-15] MEDS: THIAMINE HCL 100 MG TABLET (FP) PO SCH (09:59)
[2018-11-15] MEDS: FOLIC ACID 1 MG TABLET (FP) PO SCH (09:59)
[2018-11-15] MEDS: ROSUVASTATIN CA 10 MG TABLET (FP) PO SCH (09:59)
[2018-11-15] MEDS ORDERED: LISINOPRIL 5 MG TABLET (FP) PO SCH (10:00)
[2018-11-15] MEDS ORDERED: CEFTRIAXONE 2 GM in DEXTROSE 5%-WATER 100 ML IVPB SCH (10:00)
[2018-11-15] MEDS: LORazepam 1 MG TABLET PO PRN (10:00)
[2018-11-15] MEDS: PANTOPRAZOLE 40 MG TABLET (FP) PO SCH (10:00)
[2018-11-15] MEDS: MULTIVITAMINS (DAILY MVI) TABLET (FP) PO SCH (10:01)
[2018-11-15] MEDS: LIDOCAINE 5% TOPICAL PATCH TP SCH (10:02)
[2018-11-15] MEDS: MAGNESIUM OXIDE 400 MG TABLET (FP) PO SCH ×2 (10:08→21:16)
--- NOTE | 2018-11-15 12:34 | PN ---
Progress Note, Physician History of Present Illness: pulmonary alert,less dypneic,less cough - Current Medication List Current Medications: Active Medications Acetaminophen (Tylenol -) 650 mg PO Q6H PRN PRN Reason: PAIN LEVEL 1-5 Albuterol Sulfate (Ventolin 0.083% Nebulizer Soln -) 1 amp NEB RQID PRN PRN Reason: SHORT OF BREATH/WHEEZING Aspirin (Asa -) 81 mg PO DAILY [facility] Last Admin: 11/15/18 09:52 Dose: 81 mg Calcium Carbonate/Cholecalciferol (Os-Hardik 500+D -) 2 tab PO DAILY [facility] Last Admin: 11/15/18 09:53 Dose: 2 tab Cyanocobalamin (Vitamin B12 -) 1,000 mcg PO DAILY [facility] Last Admin: 11/15/18 09:52 Dose: 1,000 mcg Folic Acid (Folic Acid -) 1 mg PO DAILY [facility] Last Admin: 11/15/18 09:59 Dose: 1 mg Ceftriaxone Sodium 2 gm/ (Dextrose) 100 mls @ 200 mls/hr IVPB DAILY [facility]; Protocol Last Admin: 11/15/18 10:02 Dose: 200 mls/hr Lactulose (Cephulac (Oral Use)) 20 gm PO BID [facility] Last Admin: 11/15/18 09:51 Dose: Not Given Lidocaine (Lidoderm Patch -) 1 patch TP DAILY [facility] Last Admin: 11/15/18 10:02 Dose: 1 patch Lisinopril (Prinivil) 2.5 mg PO DAILY [facility] Last Admin: 11/15/18 09:58 Dose: 2.5 mg Lorazepam (Ativan -) 1 mg PO Q12H PRN PRN Reason: AGITATION Last Admin: 11/15/18 10:00 Dose: 1 mg Magnesium Oxide (Mag-Ox -) 400 mg PO BID [facility] Last Admin: 11/15/18 10:08 Dose: 400 mg Metoprolol Succinate (Toprol Xl -) 100 mg PO BID [facility] Last Admin: 11/15/18 10:00 Dose: 100 mg Miscellaneous (Lidoderm Patch Removal) 1 each MC DAILY@2200 [facility] Last Admin: 11/15/18 02:49 Dose: Not Given Multivitamins/Minerals/Vitamin C (Tab-A-Vit -) 1 tab PO DAILY [facility] Last Admin: 11/15/18 10:01 Dose: 1 tab Pantoprazole Sodium (Protonix -) 40 mg PO DAILY [facility] Last Admin: 11/15/18 10:00 Dose: 40 mg Quetiapine Fumarate (Seroquel -) 25 mg PO BID [facility] Last Admin: 11/15/18 10:15 Dose: Not Given Rosuvastatin Calcium (Crestor -) 10 mg PO DAILY [facility] Last Admin: 11/15/18 09:59 Dose: 10 mg Sertraline HCl (Zoloft -) 25 mg PO DAILY [facility] Last Admin: 11/15/18 10:17 Dose: Not Given Thiamine HCl (Vitamin B1 -) 100 mg PO DAILY [facility] Last Admin: 11/15/18 09:59 Dose: 100 mg - Objective Vital Signs: Vital Signs Temperature 98.4 F 11/15/18 09:00 Pulse Rate 80 11/15/18 09:00 Respiratory Rate 20 11/15/18 09:00 Blood Pressure 124/72 11/15/18 09:00 O2 Sat by Pulse Oximetry (%) 95 11/15/18 09:00 Constitutional: Yes: Well Nourished, Calm Eyes: Yes: WNL HENT: Yes: WNL Neck: Yes: WNL Cardiovascular: Yes: Pulse Irregular, S1, S2 Respiratory: Yes: Rales, Rhonchi Gastrointestinal: Yes: Normal Bowel Sounds, Soft Extremities: Yes: WNL Edema: No Labs: CBC, BMP Problem List - Problems (1) Alcohol intoxication Code(s): F10.929 - ALCOHOL USE, UNSPECIFIED WITH INTOXICATION, UNSPECIFIED Qualifiers: Complication of substance-induced condition: uncomplicated Qualified Code(s ): F10.920 - Alcohol use, unspecified with intoxication, uncomplicated (2) Atrial fibrillation Code(s): I48.91 - UNSPECIFIED ATRIAL FIBRILLATION Qualifiers: Atrial fibrillation type: chronic Qualified Code(s): I48.2 - Chronic atrial fibrillation (3) CKD (chronic kidney disease) Code(s): N18.9 - CHRONIC KIDNEY DISEASE, UNSPECIFIED (4) SOB (shortness of breath) Code(s): R06.02 - SHORTNESS OF BREATH (5) Chronic a-fib Code(s): I48.2 - CHRONIC ATRIAL FIBRILLATION (6) T2DM (type 2 diabetes mellitus) Code(s): E11.9 - TYPE 2 DIABETES MELLITUS WITHOUT COMPLICATIONS (7) Pneumonia Code(s): J18.9 - PNEUMONIA, UNSPECIFIED ORGANISM (8) CHF (congestive heart failure) Code(s): I50.9 - HEART FAILURE, UNSPECIFIED Qualifiers: Heart failure type: systolic Assessment/Plan IMP ACUTE RESPIRATORY DISTRESS LIKELY ACUTE CHF ? PNEUMONIA RAPID AFIB HTN DM ETOH ABUSE ANEMIA PLAN ABX PER ID LASIX O2 RATE CONTROL PER CARDIOLOGY F/U CHEST X-RAYS DVT PROPHYLAXIS STRICT I+Os MONITOR H+H NORMAL TRANSFUSION THRESHOLD DR BEE Problem List - Problems (1) Alcohol intoxication Code(s): F10.929 - ALCOHOL USE, UNSPECIFIED WITH INTOXICATION, UNSPECIFIED Qualifiers: Complication of substance-induced condition: uncomplicated Qualified Code(s ): F10.920 - Alcohol use, unspecified with intoxication, uncomplicated (2) Atrial fibrillation Code(s): I48.91 - UNSPECIFIED ATRIAL FIBRILLATION Qualifiers: Atrial fibrillation type: chronic Qualified Code(s): I48.2 - Chronic atrial fibrillation (3) CKD (chronic kidney disease) Code(s): N18.9 - CHRONIC KIDNEY DISEASE, UNSPECIFIED (4) SOB (shortness of breath) Code(s): R06.02 - SHORTNESS OF BREATH (5) Chronic a-fib Code(s): I48.2 - CHRONIC ATRIAL FIBRILLATION (6) T2DM (type 2 diabetes mellitus) Code(s): E11.9 - TYPE 2 DIABETES MELLITUS WITHOUT COMPLICATIONS (7) Pneumonia Code(s): J18.9 - PNEUMONIA, UNSPECIFIED ORGANISM (8) CHF (congestive heart failure) Code(s): I50.9 - HEART FAILURE, UNSPECIFIED
--- NOTE | 2018-11-15 14:28 | PN ---
Progress Note, Physician Chief Complaint: patient sleeping in bed - Current Medication List Current Medications: Active Medications Acetaminophen (Tylenol -) 650 mg PO Q6H PRN PRN Reason: PAIN LEVEL 1-5 Albuterol Sulfate (Ventolin 0.083% Nebulizer Soln -) 1 amp NEB RQID PRN PRN Reason: SHORT OF BREATH/WHEEZING Aspirin (Asa -) 81 mg PO DAILY [facility] Last Admin: 11/15/18 09:52 Dose: 81 mg Calcium Carbonate/Cholecalciferol (Os-Hardik 500+D -) 2 tab PO DAILY [facility] Last Admin: 11/15/18 09:53 Dose: 2 tab Cyanocobalamin (Vitamin B12 -) 1,000 mcg PO DAILY [facility] Last Admin: 11/15/18 09:52 Dose: 1,000 mcg Folic Acid (Folic Acid -) 1 mg PO DAILY [facility] Last Admin: 11/15/18 09:59 Dose: 1 mg Ceftriaxone Sodium 2 gm/ (Dextrose) 100 mls @ 200 mls/hr IVPB DAILY [facility]; Protocol Last Admin: 11/15/18 10:02 Dose: 200 mls/hr Lactulose (Cephulac (Oral Use)) 20 gm PO BID [facility] Last Admin: 11/15/18 09:51 Dose: Not Given Lidocaine (Lidoderm Patch -) 1 patch TP DAILY [facility] Last Admin: 11/15/18 10:02 Dose: 1 patch Lisinopril (Prinivil) 2.5 mg PO DAILY [facility] Last Admin: 11/15/18 09:58 Dose: 2.5 mg Lorazepam (Ativan -) 1 mg PO Q12H PRN PRN Reason: AGITATION Last Admin: 11/15/18 10:00 Dose: 1 mg Magnesium Oxide (Mag-Ox -) 400 mg PO BID [facility] Last Admin: 11/15/18 10:08 Dose: 400 mg Metoprolol Succinate (Toprol Xl -) 100 mg PO BID [facility] Last Admin: 11/15/18 10:00 Dose: 100 mg Miscellaneous (Lidoderm Patch Removal) 1 each MC DAILY@2200 [facility] Last Admin: 11/15/18 02:49 Dose: Not Given Multivitamins/Minerals/Vitamin C (Tab-A-Vit -) 1 tab PO DAILY [facility] Last Admin: 11/15/18 10:01 Dose: 1 tab Pantoprazole Sodium (Protonix -) 40 mg PO DAILY [facility] Last Admin: 11/15/18 10:00 Dose: 40 mg Quetiapine Fumarate (Seroquel -) 25 mg PO BID [facility] Last Admin: 11/15/18 10:15 Dose: Not Given Rosuvastatin Calcium (Crestor -) 10 mg PO DAILY [facility] Last Admin: 11/15/18 09:59 Dose: 10 mg Sertraline HCl (Zoloft -) 25 mg PO DAILY [facility] Last Admin: 11/15/18 10:17 Dose: Not Given Thiamine HCl (Vitamin B1 -) 100 mg PO DAILY [facility] Last Admin: 11/15/18 09:59 Dose: 100 mg - Objective Vital Signs: Vital Signs Temperature 97.8 F 11/15/18 14:07 Pulse Rate 94 H 11/15/18 14:07 Respiratory Rate 20 11/15/18 09:00 Blood Pressure 116/66 11/15/18 14:07 O2 Sat by Pulse Oximetry (%) 95 11/15/18 09:00 Constitutional: Yes: Calm Cardiovascular: Yes: Regular Rate and Rhythm, S1, S2 Respiratory: Yes: CTA Bilaterally Gastrointestinal: Yes: Normal Bowel Sounds, Soft Neurological: Yes: Alert, Oriented Labs: CBC, BMP 11/14/18 10:24 11/14/18 07:25 INR, PTT INR 1.13 (0.83-1.09) H 11/05/18 07:45 Problem List - Problems (1) Pneumonia Assessment/Plan: rocephin Code(s): J18.9 - PNEUMONIA, UNSPECIFIED ORGANISM (2) CHF (congestive heart failure) Assessment/Plan: EF 35-40% lisinopril low dose started on BB Code(s): I50.9 - HEART FAILURE, UNSPECIFIED Qualifiers: Heart failure type: systolic (3) Atrial fibrillation Assessment/Plan: metoprolol Code(s): I48.91 - UNSPECIFIED ATRIAL FIBRILLATION Qualifiers: Atrial fibrillation type: chronic Qualified Code(s): I48.2 - Chronic atrial fibrillation (4) Anxiety and depression Assessment/Plan: ativan and seroquel Code(s): F41.9 - ANXIETY DISORDER, UNSPECIFIED; F32.9 - MAJOR DEPRESSIVE DISORDER, SINGLE EPISODE, UNSPECIFIED
[2018-11-15] MEDS ORDERED: FUROSEMIDE 40 MG/4 ML INJECTABLE VIAL IVPUSH ONE (15:07)
--- NOTE | 2018-11-15 15:14 | PN ---
Progress Note, Physician History of Present Illness: REPORTS FEELING BETTER NO C/O COUGH NO C/O FEVER/ CHILLS AFEBRILE - Current Medication List Current Medications: Active Medications Acetaminophen (Tylenol -) 650 mg PO Q6H PRN PRN Reason: PAIN LEVEL 1-5 Albuterol Sulfate (Ventolin 0.083% Nebulizer Soln -) 1 amp NEB RQID PRN PRN Reason: SHORT OF BREATH/WHEEZING Aspirin (Asa -) 81 mg PO DAILY [facility] Last Admin: 11/15/18 09:52 Dose: 81 mg Calcium Carbonate/Cholecalciferol (Os-Hardik 500+D -) 2 tab PO DAILY [facility] Last Admin: 11/15/18 09:53 Dose: 2 tab Cyanocobalamin (Vitamin B12 -) 1,000 mcg PO DAILY [facility] Last Admin: 11/15/18 09:52 Dose: 1,000 mcg Folic Acid (Folic Acid -) 1 mg PO DAILY [facility] Last Admin: 11/15/18 09:59 Dose: 1 mg Furosemide (Lasix Injection -) 40 mg IVPUSH ONCE ONE Stop: 11/15/18 15:08 Furosemide (Lasix -) 20 mg PO DAILY [facility] Ceftriaxone Sodium 2 gm/ (Dextrose) 100 mls @ 200 mls/hr IVPB DAILY [facility]; Protocol Last Admin: 11/15/18 10:02 Dose: 200 mls/hr Lactulose (Cephulac (Oral Use)) 20 gm PO BID [facility] Last Admin: 11/15/18 09:51 Dose: Not Given Lidocaine (Lidoderm Patch -) 1 patch TP DAILY [facility] Last Admin: 11/15/18 10:02 Dose: 1 patch Lisinopril (Prinivil) 2.5 mg PO DAILY [facility] Last Admin: 11/15/18 09:58 Dose: 2.5 mg Lorazepam (Ativan -) 1 mg PO Q12H PRN PRN Reason: AGITATION Last Admin: 11/15/18 10:00 Dose: 1 mg Magnesium Oxide (Mag-Ox -) 400 mg PO BID [facility] Last Admin: 11/15/18 10:08 Dose: 400 mg Metoprolol Succinate (Toprol Xl -) 100 mg PO BID [facility] Last Admin: 11/15/18 10:00 Dose: 100 mg Miscellaneous (Lidoderm Patch Removal) 1 each MC DAILY@2200 [facility] Last Admin: 11/15/18 02:49 Dose: Not Given Multivitamins/Minerals/Vitamin C (Tab-A-Vit -) 1 tab PO DAILY [facility] Last Admin: 11/15/18 10:01 Dose: 1 tab Pantoprazole Sodium (Protonix -) 40 mg PO DAILY [facility] Last Admin: 11/15/18 10:00 Dose: 40 mg Quetiapine Fumarate (Seroquel -) 25 mg PO BID [facility] Last Admin: 11/15/18 10:15 Dose: Not Given Rosuvastatin Calcium (Crestor -) 10 mg PO DAILY [facility] Last Admin: 11/15/18 09:59 Dose: 10 mg Sertraline HCl (Zoloft -) 25 mg PO DAILY [facility] Last Admin: 11/15/18 10:17 Dose: Not Given Thiamine HCl (Vitamin B1 -) 100 mg PO DAILY [facility] Last Admin: 11/15/18 09:59 Dose: 100 mg - Objective Vital Signs: Vital Signs Temperature 97.8 F 11/15/18 14:07 Pulse Rate 94 H 11/15/18 14:07 Respiratory Rate 20 11/15/18 09:00 Blood Pressure 116/66 11/15/18 14:07 O2 Sat by Pulse Oximetry (%) 95 11/15/18 09:00 Constitutional: Yes: No Distress Cardiovascular: Yes: Regular Rate and Rhythm, S1, S2 Respiratory: Yes: Diminished Gastrointestinal: Yes: Soft. No: Tenderness Integumentary: Yes: Other (+ PSORIASIS) Labs: CBC, BMP 11/14/18 10:24 11/14/18 07:25 INR, PTT INR 1.13 (0.83-1.09) H 11/05/18 07:45 Assessment/Plan PNEUMONIA V. CHF CLINICALLY IMPROVED SUBSTITUTE CEFTIN 500MG PO BID 3D
[2018-11-15] MEDS: ALBUTEROL SO4 0.083% IH SOL 2.5 MG/3 ML VIAL.NEB. NEB PRN (20:25)
[2018-11-15] MEDS: CEFUROXIME AXETIL 500 MG TABLET PO SCH (21:16)
[2018-11-15] MEDS ORDERED: guaiFENesin/D-M SUGAR-FREE/ACLHOL-FREE 118 ML BOTTLE PO STA (21:52)
[2018-11-15] MEDS ORDERED: LIDOCAINE PATCH REMOVAL MC SCH (22:00)
[2018-11-16] MEDS: guaiFENesin/D-METHORPHAN HB 10 ML UNIT-DOSE CUPS PO PRN ×3 (05:48→19:55)
[2018-11-16] MEDS: ALBUTEROL SO4 0.083% IH SOL 2.5 MG/3 ML VIAL.NEB. NEB PRN (07:25)
[2018-11-16 07:57] LABS: ALBUMIN 2.6 g/dl (3.4-5.0); BASO % 0.7 % (0-2.0); BILIRUBIN,TOTAL 0.8 mg/dL (0.2-1); BLOOD UREA NITROGEN 12.8 mg/dL (7-18); CALCIUM 8.1 mg/dL (8.5-10.1); CREATININE 1.1 mg/dL (0.55-1.3); EOS % 1.7 % (0-4.5); HEMATOCRIT 31.2 % (32.4-45.2); HEMOGLOBIN 10.2 GM/dL (10.7-15.3); LYMPH % 10.3 % (8-40); MCH 28.5 pg (25.7-33.7); MCHC 32.9 g/dl (32.0-36.0); MEAN CELL VOLUME 86.8 fl (80-96); MEAN PLT VOLUME 10.2 fl (7.5-11.1); MONO % 18.8 % (3.8-10.2); NEUT % 68.5 % (42.8-82.8); PLATELET COUNT 162 K/MM3 (134-434); POTASSIUM 3.7 mmol/L (3.5-5.1); RBC 3.59 M/mm3 (3.60-5.2); RDW 16.5 % (11.6-15.6); TOT PROT 6.1 g/dl (6.4-8.2); WHITE BLOOD COUNT 4.9 K/mm3 (4.0-10.0)
--- NOTE | 2018-11-16 09:47 | PN ---
Progress Note, Physician Chief Complaint: AWAKE MORE ALERT WEAK UNSTEADY GAIT - Current Medication List Current Medications: Active Medications Acetaminophen (Tylenol -) 650 mg PO Q6H PRN PRN Reason: PAIN LEVEL 1-5 Albuterol Sulfate (Ventolin 0.083% Nebulizer Soln -) 1 amp NEB RQID PRN PRN Reason: SHORT OF BREATH/WHEEZING Last Admin: 11/16/18 07:25 Dose: 1 amp Aspirin (Asa -) 81 mg PO DAILY [facility] Last Admin: 11/15/18 09:52 Dose: 81 mg Calcium Carbonate/Cholecalciferol (Os-Hardik 500+D -) 2 tab PO DAILY [facility] Last Admin: 11/15/18 09:53 Dose: 2 tab Cefuroxime Axetil (Ceftin -) 500 mg PO BID [facility] Last Admin: 11/15/18 21:16 Dose: 500 mg Cyanocobalamin (Vitamin B12 -) 1,000 mcg PO DAILY [facility] Last Admin: 11/15/18 09:52 Dose: 1,000 mcg Folic Acid (Folic Acid -) 1 mg PO DAILY [facility] Last Admin: 11/15/18 09:59 Dose: 1 mg Furosemide (Lasix -) 20 mg PO DAILY [facility] Guaifenesin (Robitussin Dm -) 10 ml PO Q4H PRN PRN Reason: COUGH Last Admin: 11/16/18 05:48 Dose: 10 ml Lactulose (Cephulac (Oral Use)) 20 gm PO BID [facility] Last Admin: 11/15/18 21:16 Dose: 20 gm Lidocaine (Lidoderm Patch -) 1 patch TP DAILY [facility] Last Admin: 11/15/18 10:02 Dose: 1 patch Lisinopril (Prinivil) 2.5 mg PO DAILY [facility] Last Admin: 11/15/18 09:58 Dose: 2.5 mg Lorazepam (Ativan -) 1 mg PO Q12H PRN PRN Reason: AGITATION Last Admin: 11/15/18 10:00 Dose: 1 mg Magnesium Oxide (Mag-Ox -) 400 mg PO BID [facility] Last Admin: 11/15/18 21:16 Dose: 400 mg Metoprolol Succinate (Toprol Xl -) 100 mg PO BID [facility] Last Admin: 11/15/18 21:16 Dose: 100 mg Miscellaneous (Lidoderm Patch Removal) 1 each MC DAILY@2200 [facility] Last Admin: 11/15/18 21:17 Dose: 1 each Multivitamins/Minerals/Vitamin C (Tab-A-Vit -) 1 tab PO DAILY [facility] Last Admin: 11/15/18 10:01 Dose: 1 tab Pantoprazole Sodium (Protonix -) 40 mg PO DAILY [facility] Last Admin: 11/15/18 10:00 Dose: 40 mg Quetiapine Fumarate (Seroquel -) 25 mg PO BID [facility] Last Admin: 11/15/18 21:16 Dose: 25 mg Rosuvastatin Calcium (Crestor -) 10 mg PO DAILY [facility] Last Admin: 11/15/18 09:59 Dose: 10 mg Sertraline HCl (Zoloft -) 25 mg PO DAILY [facility] Last Admin: 11/15/18 10:17 Dose: Not Given Thiamine HCl (Vitamin B1 -) 100 mg PO DAILY [facility] Last Admin: 11/15/18 09:59 Dose: 100 mg - Objective Vital Signs: Vital Signs Temperature 97.8 F 11/16/18 05:25 Pulse Rate 98 H 11/16/18 05:25 Respiratory Rate 18 11/16/18 05:25 Blood Pressure 128/85 11/16/18 05:25 O2 Sat by Pulse Oximetry (%) 6 L 11/15/18 21:00 Constitutional: Yes: Mild Distress Eyes: Yes: WNL HENT: Yes: Other (ADA. DERMATITIS TO FACE AND SCALP) Neck: Yes: WNL Cardiovascular: Yes: WNL Respiratory: Yes: WNL Gastrointestinal: Yes: WNL Genitourinary: Yes: WNL Musculoskeletal: Yes: Muscle Weakness Extremities: Yes: WNL Edema: No Peripheral Pulses WNL: Yes Integumentary: Yes: Rash Wound/Incision: Yes: Open to air Neurological: Yes: Unsteady Gait, Weakness ...Motor Strength: LLE, RLE Psychiatric: Yes: Other Labs: CBC, BMP 11/16/18 06:15 11/16/18 06:15 INR, PTT INR 1.13 (0.83-1.09) H 11/05/18 07:45 Problem List - Problems (1) Alcohol intoxication Code(s): F10.929 - ALCOHOL USE, UNSPECIFIED WITH INTOXICATION, UNSPECIFIED Qualifiers: Complication of substance-induced condition: uncomplicated Qualified Code(s ): F10.920 - Alcohol use, unspecified with intoxication, uncomplicated (2) Alcoholic fatty liver Code(s): K70.0 - ALCOHOLIC FATTY LIVER (3) Atrial fibrillation Code(s): I48.91 - UNSPECIFIED ATRIAL FIBRILLATION Qualifiers: Atrial fibrillation type: chronic Qualified Code(s): I48.2 - Chronic atrial fibrillation (4) CKD (chronic kidney disease) Code(s): N18.9 - CHRONIC KIDNEY DISEASE, UNSPECIFIED (5) Rhabdomyolysis Code(s): M62.82 - RHABDOMYOLYSIS Qualifiers: Rhabdomyolysis type: non-traumatic Qualified Code(s): M62.82 - Rhabdomyolysis (6) T2DM (type 2 diabetes mellitus) Code(s): E11.9 - TYPE 2 DIABETES MELLITUS WITHOUT COMPLICATIONS (7) Dermatitis Code(s): L30.9 - DERMATITIS, UNSPECIFIED Assessment/Plan CONTINUE MONITORING ATIVAN PRN ETOH WITH DRAWEL PRECAUTIONS PT EVAL OOB TO CHAIR STEROID CREAM AND KETOCONAZOLE NICHOLAS SOUCI SUNDAY
[2018-11-16] MEDS: LORazepam 1 MG TABLET PO PRN ×2 (09:56→21:01)
[2018-11-16] MEDS: ASPIRIN 81 MG CHEWABLE TABLETS PO SCH (09:57)
[2018-11-16] MEDS: LISINOPRIL 5 MG TABLET (FP) PO SCH (09:57)
[2018-11-16] MEDS: THIAMINE HCL 100 MG TABLET (FP) PO SCH (09:57)
[2018-11-16] MEDS: MULTIVITAMINS (DAILY MVI) TABLET (FP) PO SCH (09:58)
[2018-11-16] MEDS: QUEtiapine FUMARATE 25 MG TABLET (FP) PO SCH ×2 (09:58→20:59)
[2018-11-16] MEDS: ROSUVASTATIN CA 10 MG TABLET (FP) PO SCH ×2 (09:58→21:01)
[2018-11-16] MEDS: MAGNESIUM OXIDE 400 MG TABLET (FP) PO SCH ×2 (09:58→21:01)
[2018-11-16] MEDS: FOLIC ACID 1 MG TABLET (FP) PO SCH (09:58)
[2018-11-16] MEDS: CALCIUM 500MG/VIT-D 200 UNITS COMBO TABLET (FP) PO SCH (09:58)
[2018-11-16] MEDS: CEFUROXIME AXETIL 500 MG TABLET PO SCH ×2 (09:59→21:01)
[2018-11-16] MEDS: LIDOCAINE 5% TOPICAL PATCH TP SCH (09:59)
[2018-11-16] MEDS: LACTULOSE 20 GM/30 ML UDC (FOR ORAL USE ONLY) PO SCH ×2 (09:59→20:59)
[2018-11-16] MEDS ORDERED: TRIAMCINOLONE ACET 0.1% OINT 15 GM TUBE TP SCH (10:00)
[2018-11-16] MEDS ORDERED: KETOCONAZOLE 2% CREAM - 60GM TUBE TP SCH (10:00)
[2018-11-16] MEDS ORDERED: FUROSEMIDE 20 MG TABLET (FP) PO SCH (10:00)
[2018-11-16] MEDS: SERTRALINE HCL 25 MG TABLET (FP) PO SCH (10:08)
[2018-11-16] MEDS: CYANOCOBALAMIN 1,000 MCG TABLET (FP) PO SCH (10:09)
[2018-11-16] MEDS: PANTOPRAZOLE 40 MG TABLET (FP) PO SCH (10:11)
[2018-11-16 12:15] LABS: ANISOCYTOSIS 0; MACROCYTOSIS 0; OVALOCYTE 1+
[2018-11-16] MEDS ORDERED: ONDANSETRON 4 MG/2 ML VIAL IVPB PRN ×2 (12:15→18:05)
--- NOTE | 2018-11-16 12:23 | PN ---
Progress Note (short form) - Note Progress Note: PULMONARY SOB AT REST SPO2 92% ON R/A SPO2 95% ON 3 L/M O2 VSS/AFEBRILE Anicteric Cardiovascular: Yes: Pulse Irregular, S1, S2 Respiratory: Yes: Rales, Rhonchi Gastrointestinal: Yes: Normal Bowel Sounds, Soft Extremities: Yes: WNL Edema: No Labs/meds/notes/images reviewed CXR worsening b/l congestive changes IMP REMAINS DYSPNEIC LIKELY ACUTE CHF ? PNEUMONIA RAPID AFIB HTN DM ETOH ABUSE ANEMIA PLAN WOULD TRANSFER TO TELEMETRY LASIX TO CONTINUE O2 SUPPLEMENTATION /KEEP SATS GREATER THAN 90% CARDIOLOGY FOLLOW UP F/U CHEST X-RAYS DVT PROPHYLAXIS STRICT I+Os MONITOR H+H NORMAL TRANSFUSION THRESHOLD Manpreet MARIEE MD
[2018-11-16 14:11] LABS: PLATELET ESTIMATE ADEQUATE
--- NOTE | 2018-11-16 14:31 | PN ---
Progress Note (short form) - Note Progress Note: I WAS CONTACTED BY DR MARIEE THAT THE PATIENT WAS COUGHING AND MORE SOB AND HE IS TRANSFERRING HER BACK TO TELEMETRY. I RETURNED TO SEE THE PATIENT AND SHE IS COUGHING AND SOUNDS MORE CONGESTED WITH RALES ON BREATH SOUNDS LUNG FIELD. PLAN: CXR ORDERED AND REVIEWED + WORSENING CONGESTION TROPONIN CARDIAC ENZYMES 02 NC PATIENT APPEARS BETTER AND NOT IN DISTRESS AT THE MOMENT TRANSFERRING TO TELEMETRY CARDIO/PULM FOLLOW UP DISCUSSED WITH HER FAMILY BEDSIDE Problem List - Problems (1) Alcohol intoxication Code(s): F10.929 - ALCOHOL USE, UNSPECIFIED WITH INTOXICATION, UNSPECIFIED Qualifiers: Complication of substance-induced condition: uncomplicated Qualified Code(s ): F10.920 - Alcohol use, unspecified with intoxication, uncomplicated (2) Alcoholic fatty liver Code(s): K70.0 - ALCOHOLIC FATTY LIVER (3) Atrial fibrillation Code(s): I48.91 - UNSPECIFIED ATRIAL FIBRILLATION Qualifiers: Atrial fibrillation type: chronic Qualified Code(s): I48.2 - Chronic atrial fibrillation (4) CKD (chronic kidney disease) Code(s): N18.9 - CHRONIC KIDNEY DISEASE, UNSPECIFIED (5) Rhabdomyolysis Code(s): M62.82 - RHABDOMYOLYSIS Qualifiers: Rhabdomyolysis type: non-traumatic Qualified Code(s): M62.82 - Rhabdomyolysis (6) T2DM (type 2 diabetes mellitus) Code(s): E11.9 - TYPE 2 DIABETES MELLITUS WITHOUT COMPLICATIONS (7) Dermatitis Code(s): L30.9 - DERMATITIS, UNSPECIFIED
[2018-11-16] MEDS: FUROSEMIDE 40 MG/4 ML INJECTABLE VIAL IVPUSH SCH (15:16)
[2018-11-16] MEDS ORDERED: ALBUTEROL SO4 0.083% IH SOL 2.5 MG/3 ML VIAL.NEB. NEB PRN (18:05)
[2018-11-16] MEDS: TRIAMCINOLONE ACET 0.1% OINT 15 GM TUBE TP SCH (21:01)
[2018-11-16] MEDS: LIDOCAINE PATCH REMOVAL MC SCH (21:01)
[2018-11-16] MEDS ORDERED: LIDOCAINE PATCH REMOVAL MC SCH (22:00)
[2018-11-16] MEDS: ACETAMINOPHEN 325 MG TABLET (FP) PO PRN (22:35)
[2018-11-16] MEDS ORDERED: DIGOXIN 0.25 MG TABLET (FP) PO ONE (23:00)
[2018-11-17] MEDS: guaiFENesin/D-METHORPHAN HB 10 ML UNIT-DOSE CUPS PO PRN ×5 (00:24→20:51)
[2018-11-17] MEDS: ACETAMINOPHEN 325 MG TABLET (FP) PO PRN (05:20)
--- NOTE | 2018-11-17 09:05 | PN ---
Progress Note (short form) - Note Progress Note: PULMONARY APPEARS MUCH IMPROVED VSS/AFEBRILE Anicteric Cardiovascular: Yes: Pulse Irregular, S1, S2 Respiratory: Yes: Rales, Rhonchi Gastrointestinal: Yes: Normal Bowel Sounds, Soft Extremities: Yes: WNL Edema: No Labs/meds/notes/images reviewed CXR reviewed IMP LESS DYSPNEIC LIKELY ACUTE CHF ? PNEUMONIA RAPID AFIB HTN DM ETOH ABUSE ANEMIA PLAN CAN CONTINUE TELE FOR TODAY LASIX TO CONTINUE O2 SUPPLEMENTATION /KEEP SATS GREATER THAN 90% CARDIOLOGY FOLLOW UP F/U CHEST X-RAYS DVT PROPHYLAXIS STRICT I+Os MONITOR H+H NORMAL TRANSFUSION THRESHOLD Manpreet MARIEE MD
[2018-11-17] MEDS ORDERED: PT OWN MED DRAWER 7, Y5N ONE ×2 (10:26→20:58)
[2018-11-17] MEDS: FUROSEMIDE 40 MG/4 ML INJECTABLE VIAL IVPUSH SCH (10:27)
[2018-11-17] MEDS: METOPROLOL SUCCINATE PO SCH ×2 (10:28→21:28)
[2018-11-17] MEDS: FOLIC ACID 1 MG TABLET (FP) PO SCH (10:29)
[2018-11-17] MEDS: QUEtiapine FUMARATE 25 MG TABLET (FP) PO SCH ×3 (10:29→21:29)
[2018-11-17] MEDS: CYANOCOBALAMIN 1,000 MCG TABLET (FP) PO SCH (10:29)
[2018-11-17] MEDS: SERTRALINE HCL 25 MG TABLET (FP) PO SCH ×2 (10:29→11:18)
[2018-11-17] MEDS: LISINOPRIL 5 MG TABLET (FP) PO SCH (10:30)
[2018-11-17] MEDS: ASPIRIN 81 MG CHEWABLE TABLETS PO SCH (10:31)
[2018-11-17] MEDS: MULTIVITAMINS (DAILY MVI) TABLET (FP) PO SCH (10:31)
[2018-11-17] MEDS: THIAMINE HCL 100 MG TABLET (FP) PO SCH (10:31)
[2018-11-17] MEDS: CEFUROXIME AXETIL 500 MG TABLET PO SCH ×2 (10:34→21:25)
[2018-11-17] MEDS: DIGOXIN 0.125 MG TABLET (FP) PO SCH (10:35)
[2018-11-17] MEDS: LACTULOSE 20 GM/30 ML UDC (FOR ORAL USE ONLY) PO SCH ×2 (10:35→21:26)
[2018-11-17] MEDS: PANTOPRAZOLE 40 MG TABLET (FP) PO SCH (10:36)
[2018-11-17] MEDS: MAGNESIUM OXIDE 400 MG TABLET (FP) PO SCH (10:36)
[2018-11-17] MEDS: CALCIUM 500MG/VIT-D 200 UNITS COMBO TABLET (FP) PO SCH (10:37)
[2018-11-17] MEDS: LIDOCAINE 5% TOPICAL PATCH TP SCH (10:39)
[2018-11-17] MEDS: LORazepam 1 MG TABLET PO PRN (10:56)
[2018-11-17] MEDS: KETOCONAZOLE 2% CREAM - 60GM TUBE TP SCH (11:00)
[2018-11-17] MEDS: TRIAMCINOLONE ACET 0.1% OINT 15 GM TUBE TP SCH (11:10)
--- NOTE | 2018-11-17 12:07 | PN ---
Progress Note, Physician Chief Complaint: LOOKS AND FEELS MUCH BETTER TODAY DENIES CP OR SOB - Current Medication List Current Medications: Active Medications Acetaminophen (Tylenol -) 650 mg PO Q6H PRN PRN Reason: PAIN LEVEL 1-5 Last Admin: 11/17/18 05:20 Dose: 650 mg Albuterol Sulfate (Ventolin 0.083% Nebulizer Soln -) 1 amp NEB RQID PRN PRN Reason: SHORT OF BREATH/WHEEZING Aspirin (Asa -) 81 mg PO DAILY [facility] Last Admin: 11/17/18 10:31 Dose: 81 mg Calcium Carbonate/Cholecalciferol (Os-Hardik 500+D -) 2 tab PO DAILY [facility] Last Admin: 11/17/18 10:37 Dose: 2 tab Cefuroxime Axetil (Ceftin -) 500 mg PO BID [facility] Last Admin: 11/17/18 10:34 Dose: 500 mg Cyanocobalamin (Vitamin B12 -) 1,000 mcg PO DAILY [facility] Last Admin: 11/17/18 10:29 Dose: 1,000 mcg Digoxin (Lanoxin -) 0.125 mg PO DAILY [facility] Last Admin: 11/17/18 10:35 Dose: 0.125 mg Folic Acid (Folic Acid -) 1 mg PO DAILY [facility] Last Admin: 11/17/18 10:29 Dose: 1 mg Furosemide (Lasix Injection -) 40 mg IVPUSH DAILY [facility] Last Admin: 11/17/18 10:27 Dose: 40 mg Guaifenesin (Robitussin Dm -) 10 ml PO Q4H PRN PRN Reason: COUGH Last Admin: 11/17/18 11:24 Dose: 10 ml Ketoconazole (Nizoral 2% Cream -) 1 applic TP DAILY [facility] Last Admin: 11/17/18 11:00 Dose: 1 applic Lactulose (Cephulac (Oral Use)) 20 gm PO BID [facility] Last Admin: 11/17/18 10:35 Dose: 20 gm Lidocaine (Lidoderm Patch -) 1 patch TP DAILY [facility] Last Admin: 11/17/18 10:39 Dose: 1 patch Lisinopril (Prinivil) 2.5 mg PO DAILY [facility] Last Admin: 11/17/18 10:30 Dose: 2.5 mg Lorazepam (Ativan -) 1 mg PO Q12H [facility] Magnesium Oxide (Mag-Ox -) 400 mg PO BID [facility] Last Admin: 11/17/18 10:36 Dose: 400 mg Metoprolol Succinate 50 mg/ (Metoprolol Succinate 100 mg) 150 mg PO BID [facility] Last Admin: 11/17/18 10:28 Dose: 150 mg Miscellaneous (Lidoderm Patch Removal) 1 each MC DAILY@2200 [facility] Last Admin: 11/16/18 21:01 Dose: 1 each Multivitamins/Minerals/Vitamin C (Tab-A-Vit -) 1 tab PO DAILY [facility] Last Admin: 11/17/18 10:31 Dose: 1 tab Ondansetron HCl (Zofran Injection) 8 mg IVPB Q6H PRN PRN Reason: NAUSEA Pantoprazole Sodium (Protonix -) 40 mg PO DAILY [facility] Last Admin: 11/17/18 10:36 Dose: 40 mg Quetiapine Fumarate (Seroquel -) 25 mg PO BID [facility] Last Admin: 11/17/18 11:18 Dose: Not Given Rosuvastatin Calcium (Crestor -) 10 mg PO HS [facility] Last Admin: 11/16/18 21:01 Dose: 10 mg Sertraline HCl (Zoloft -) 25 mg PO DAILY [facility] Last Admin: 11/17/18 11:18 Dose: Not Given Thiamine HCl (Vitamin B1 -) 100 mg PO DAILY [facility] Last Admin: 11/17/18 10:31 Dose: 100 mg Triamcinolone Acetonide (Aristocort 0.1% Ointment -) 1 applic TP BID [facility] Last Admin: 11/17/18 11:10 Dose: 1 applic - Objective Vital Signs: Vital Signs Temperature 98.0 F 11/17/18 05:52 Pulse Rate 100 H 11/17/18 10:35 Respiratory Rate 20 11/17/18 05:52 Blood Pressure 130/86 11/17/18 05:52 O2 Sat by Pulse Oximetry (%) 98 11/16/18 20:33 Constitutional: Yes: No Distress Eyes: Yes: WNL HENT: Yes: WNL Neck: Yes: WNL Cardiovascular: Yes: Regular Rate and Rhythm Respiratory: Yes: WNL Gastrointestinal: Yes: WNL Genitourinary: Yes: WNL Musculoskeletal: Yes: Muscle Weakness Edema: No Peripheral Pulses WNL: Yes Integumentary: Yes: WNL Wound/Incision: Yes: Clean/Dry Neurological: Yes: WNL ...Motor Strength: WNL Psychiatric: Yes: Other Labs: CBC, BMP 11/16/18 06:15 11/16/18 06:15 INR, PTT INR 1.13 (0.83-1.09) H 11/05/18 07:45 Problem List - Problems (1) Alcohol intoxication Code(s): F10.929 - ALCOHOL USE, UNSPECIFIED WITH INTOXICATION, UNSPECIFIED Qualifiers: Complication of substance-induced condition: uncomplicated Qualified Code(s ): F10.920 - Alcohol use, unspecified with intoxication, uncomplicated (2) Alcoholic fatty liver Code(s): K70.0 - ALCOHOLIC FATTY LIVER (3) Atrial fibrillation Code(s): I48.91 - UNSPECIFIED ATRIAL FIBRILLATION Qualifiers: Atrial fibrillation type: chronic Qualified Code(s): I48.2 - Chronic atrial fibrillation (4) CKD (chronic kidney disease) Code(s): N18.9 - CHRONIC KIDNEY DISEASE, UNSPECIFIED (5) Rhabdomyolysis Code(s): M62.82 - RHABDOMYOLYSIS Qualifiers: Rhabdomyolysis type: non-traumatic Qualified Code(s): M62.82 - Rhabdomyolysis (6) T2DM (type 2 diabetes mellitus) Code(s): E11.9 - TYPE 2 DIABETES MELLITUS WITHOUT COMPLICATIONS (7) Dermatitis Code(s): L30.9 - DERMATITIS, UNSPECIFIED Assessment/Plan ON TELEMETRY, BREATH SOUNDS BETTER NO WHEEZES OR RHONCII ON LASIX IV PUSH 02 NC PRN OOB TO CHAIR INCREASE PO INTAKE ON ENSURE SHAKES ATIVAN PRN CHANGED TO PO STANDING
[2018-11-17] MEDS ORDERED: LORazepam 1 MG TABLET PO SCH (12:15)
[2018-11-17] MEDS: LORazepam 1 MG TABLET PO SCH (20:52)
[2018-11-17] MEDS: ROSUVASTATIN CA 10 MG TABLET (FP) PO SCH (21:27)
[2018-11-18] MEDS: ACETAMINOPHEN 325 MG TABLET (FP) PO PRN (00:04)
[2018-11-18] MEDS: MAGNESIUM OXIDE 400 MG TABLET (FP) PO SCH ×3 (00:06→21:51)
[2018-11-18] MEDS: LIDOCAINE PATCH REMOVAL MC SCH ×2 (00:07→21:57)
[2018-11-18] MEDS: TRIAMCINOLONE ACET 0.1% OINT 15 GM TUBE TP SCH ×3 (00:08→21:52)
[2018-11-18] MEDS: guaiFENesin/D-METHORPHAN HB 10 ML UNIT-DOSE CUPS PO PRN ×3 (01:23→22:21)
[2018-11-18 06:53] LABS: HEMATOCRIT 34.7 % (32.4-45.2); HEMOGLOBIN 11.2 GM/dL (10.7-15.3); MCH 27.8 pg (25.7-33.7); MCHC 32.2 g/dl (32.0-36.0); MEAN CELL VOLUME 86.5 fl (80-96); RBC 4.02 M/mm3 (3.60-5.2); RDW 16.3 % (11.6-15.6)
[2018-11-18 07:23] LABS: BLOOD UREA NITROGEN 11.5 mg/dL (7-18); CALCIUM 8.8 mg/dL (8.5-10.1); CREATININE 0.9 mg/dL (0.55-1.3); MAGNESIUM 1.7 mg/dL (1.8-2.4); POTASSIUM 3.7 mmol/L (3.5-5.1)
[2018-11-18 08:28] LABS: PLATELET COUNT 205 K/MM3 (134-434)
[2018-11-18] MEDS ORDERED: PT OWN MED DRAWER 7, Y5N ONE ×2 (09:05→21:34)
[2018-11-18] MEDS: FUROSEMIDE 40 MG/4 ML INJECTABLE VIAL IVPUSH SCH (09:08)
[2018-11-18] MEDS: LACTULOSE 20 GM/30 ML UDC (FOR ORAL USE ONLY) PO SCH ×2 (09:08→21:52)
[2018-11-18] MEDS: METOPROLOL SUCCINATE PO SCH ×2 (09:09→21:51)
[2018-11-18] MEDS: DIGOXIN 0.125 MG TABLET (FP) PO SCH (09:09)
[2018-11-18] MEDS: CYANOCOBALAMIN 1,000 MCG TABLET (FP) PO SCH (09:11)
[2018-11-18] MEDS: LISINOPRIL 5 MG TABLET (FP) PO SCH (09:11)
[2018-11-18] MEDS: SERTRALINE HCL 25 MG TABLET (FP) PO SCH ×2 (09:11→09:22)
[2018-11-18] MEDS: MULTIVITAMINS (DAILY MVI) TABLET (FP) PO SCH (09:11)
[2018-11-18] MEDS: THIAMINE HCL 100 MG TABLET (FP) PO SCH (09:12)
[2018-11-18] MEDS: ASPIRIN 81 MG CHEWABLE TABLETS PO SCH (09:12)
[2018-11-18] MEDS: PANTOPRAZOLE 40 MG TABLET (FP) PO SCH (09:12)
[2018-11-18] MEDS: QUEtiapine FUMARATE 25 MG TABLET (FP) PO SCH ×3 (09:12→21:53)
[2018-11-18] MEDS: FOLIC ACID 1 MG TABLET (FP) PO SCH (09:12)
[2018-11-18] MEDS: LORazepam 1 MG TABLET PO SCH ×2 (09:13→21:51)
[2018-11-18] MEDS: LIDOCAINE 5% TOPICAL PATCH TP SCH (09:13)
[2018-11-18] MEDS: CEFUROXIME AXETIL 500 MG TABLET PO SCH ×2 (09:14→21:52)
[2018-11-18] MEDS: KETOCONAZOLE 2% CREAM - 60GM TUBE TP SCH (09:16)
[2018-11-18] MEDS: CALCIUM 500MG/VIT-D 200 UNITS COMBO TABLET (FP) PO SCH (09:16)
--- NOTE | 2018-11-18 12:16 | PN ---
Progress Note (short form) - Note Progress Note: PULMONARY States breathing continues to improve. Less cough and wheezing. Vital Signs Period Temp Pulse Resp BP Sys/Rodríguez Pulse Ox Last 24 Hr 97.1 F-98.9 F 71-102 16-18 113-148/72-90 95 Gen: NAD at rest Heart: RRR Lung: decreased breath sounds at the bases, no wheezes Abd: soft, nontender Ext: no edema CBC, BMP 11/18/18 05:25 11/18/18 05:25 Active Medications Acetaminophen (Tylenol -) 650 mg PO Q6H PRN PRN Reason: PAIN LEVEL 1-5 Last Admin: 11/18/18 00:04 Dose: 650 mg Albuterol Sulfate (Ventolin 0.083% Nebulizer Soln -) 1 amp NEB RQID PRN PRN Reason: SHORT OF BREATH/WHEEZING Aspirin (Asa -) 81 mg PO DAILY [facility] Last Admin: 11/18/18 09:12 Dose: 81 mg Calcium Carbonate/Cholecalciferol (Os-Hardik 500+D -) 2 tab PO DAILY [facility] Last Admin: 11/18/18 09:16 Dose: 2 tab Cefuroxime Axetil (Ceftin -) 500 mg PO BID [facility] Last Admin: 11/18/18 09:14 Dose: 500 mg Cyanocobalamin (Vitamin B12 -) 1,000 mcg PO DAILY [facility] Last Admin: 11/18/18 09:11 Dose: 1,000 mcg Digoxin (Lanoxin -) 0.125 mg PO DAILY [facility] Last Admin: 11/18/18 09:09 Dose: 0.125 mg Folic Acid (Folic Acid -) 1 mg PO DAILY [facility] Last Admin: 11/18/18 09:12 Dose: 1 mg Furosemide (Lasix Injection -) 40 mg IVPUSH DAILY [facility] Last Admin: 11/18/18 09:08 Dose: 40 mg Guaifenesin (Robitussin Dm -) 10 ml PO Q4H PRN PRN Reason: COUGH Last Admin: 11/18/18 09:08 Dose: 10 ml Ketoconazole (Nizoral 2% Cream -) 1 applic TP DAILY [facility] Last Admin: 11/18/18 09:16 Dose: 1 applic Lactulose (Cephulac (Oral Use)) 20 gm PO BID [facility] Last Admin: 11/18/18 09:08 Dose: 20 gm Lidocaine (Lidoderm Patch -) 1 patch TP DAILY [facility] Last Admin: 11/18/18 09:13 Dose: 1 patch Lisinopril (Prinivil) 2.5 mg PO DAILY [facility] Last Admin: 11/18/18 09:11 Dose: 2.5 mg Lorazepam (Ativan -) 1 mg PO Q12H [facility] Last Admin: 11/18/18 09:13 Dose: 1 mg Magnesium Oxide (Mag-Ox -) 400 mg PO BID [facility] Last Admin: 11/18/18 09:09 Dose: 400 mg Metoprolol Succinate 50 mg/ (Metoprolol Succinate 100 mg) 150 mg PO BID [facility] Last Admin: 11/18/18 09:09 Dose: 150 mg Miscellaneous (Lidoderm Patch Removal) 1 each MC DAILY@2200 [facility] Last Admin: 11/18/18 00:07 Dose: 1 each Multivitamins/Minerals/Vitamin C (Tab-A-Vit -) 1 tab PO DAILY [facility] Last Admin: 11/18/18 09:11 Dose: 1 tab Pantoprazole Sodium (Protonix -) 40 mg PO DAILY [facility] Last Admin: 11/18/18 09:12 Dose: 40 mg Quetiapine Fumarate (Seroquel -) 25 mg PO BID [facility] Last Admin: 11/18/18 09:21 Dose: Not Given Rosuvastatin Calcium (Crestor -) 10 mg PO HS [facility] Last Admin: 11/17/18 21:27 Dose: 10 mg Sertraline HCl (Zoloft -) 25 mg PO DAILY [facility] Last Admin: 11/18/18 09:22 Dose: Not Given Thiamine HCl (Vitamin B1 -) 100 mg PO DAILY [facility] Last Admin: 11/18/18 09:12 Dose: 100 mg Triamcinolone Acetonide (Aristocort 0.1% Ointment -) 1 applic TP BID [facility] Last Admin: 11/18/18 09:15 Dose: 1 applic A/P Acute on Chronic Systolic Heart Failure Mitral Regurgitation Atrial Fibrillation r/o Pneumonia HTN DM - continue lasix - monitor urine output, creatinine - rate control - anticoagulation per cardiology - inhaled bronchodilators as needed - O2 to keep Spo2 >90% - DVT prophylaxis
--- NOTE | 2018-11-18 12:28 | PN ---
Progress Note, Physician Chief Complaint: patient seen and examined breathing is better on iv lasix - Current Medication List Current Medications: Active Medications Acetaminophen (Tylenol -) 650 mg PO Q6H PRN PRN Reason: PAIN LEVEL 1-5 Last Admin: 11/18/18 00:04 Dose: 650 mg Albuterol Sulfate (Ventolin 0.083% Nebulizer Soln -) 1 amp NEB RQID PRN PRN Reason: SHORT OF BREATH/WHEEZING Aspirin (Asa -) 81 mg PO DAILY [facility] Last Admin: 11/18/18 09:12 Dose: 81 mg Calcium Carbonate/Cholecalciferol (Os-Hardik 500+D -) 2 tab PO DAILY [facility] Last Admin: 11/18/18 09:16 Dose: 2 tab Cefuroxime Axetil (Ceftin -) 500 mg PO BID [facility] Last Admin: 11/18/18 09:14 Dose: 500 mg Cyanocobalamin (Vitamin B12 -) 1,000 mcg PO DAILY [facility] Last Admin: 11/18/18 09:11 Dose: 1,000 mcg Digoxin (Lanoxin -) 0.125 mg PO DAILY [facility] Last Admin: 11/18/18 09:09 Dose: 0.125 mg Folic Acid (Folic Acid -) 1 mg PO DAILY [facility] Last Admin: 11/18/18 09:12 Dose: 1 mg Furosemide (Lasix Injection -) 40 mg IVPUSH DAILY [facility] Last Admin: 11/18/18 09:08 Dose: 40 mg Guaifenesin (Robitussin Dm -) 10 ml PO Q4H PRN PRN Reason: COUGH Last Admin: 11/18/18 09:08 Dose: 10 ml Ketoconazole (Nizoral 2% Cream -) 1 applic TP DAILY [facility] Last Admin: 11/18/18 09:16 Dose: 1 applic Lactulose (Cephulac (Oral Use)) 20 gm PO BID [facility] Last Admin: 11/18/18 09:08 Dose: 20 gm Lidocaine (Lidoderm Patch -) 1 patch TP DAILY [facility] Last Admin: 11/18/18 09:13 Dose: 1 patch Lisinopril (Prinivil) 2.5 mg PO DAILY [facility] Last Admin: 11/18/18 09:11 Dose: 2.5 mg Lorazepam (Ativan -) 1 mg PO Q12H [facility] Last Admin: 11/18/18 09:13 Dose: 1 mg Magnesium Oxide (Mag-Ox -) 400 mg PO BID [facility] Last Admin: 11/18/18 09:09 Dose: 400 mg Metoprolol Succinate 50 mg/ (Metoprolol Succinate 100 mg) 150 mg PO BID [facility] Last Admin: 11/18/18 09:09 Dose: 150 mg Miscellaneous (Lidoderm Patch Removal) 1 each [facility] DAILY@2200 [facility] Last Admin: 11/18/18 00:07 Dose: 1 each Multivitamins/Minerals/Vitamin C (Tab-A-Vit -) 1 tab PO DAILY [facility] Last Admin: 11/18/18 09:11 Dose: 1 tab Pantoprazole Sodium (Protonix -) 40 mg PO DAILY [facility] Last Admin: 11/18/18 09:12 Dose: 40 mg Quetiapine Fumarate (Seroquel -) 25 mg PO BID [facility] Last Admin: 11/18/18 09:21 Dose: Not Given Rosuvastatin Calcium (Crestor -) 10 mg PO HS [facility] Last Admin: 11/17/18 21:27 Dose: 10 mg Sertraline HCl (Zoloft -) 25 mg PO DAILY [facility] Last Admin: 11/18/18 09:22 Dose: Not Given Thiamine HCl (Vitamin B1 -) 100 mg PO DAILY [facility] Last Admin: 11/18/18 09:12 Dose: 100 mg Triamcinolone Acetonide (Aristocort 0.1% Ointment -) 1 applic TP BID [facility] Last Admin: 11/18/18 09:15 Dose: 1 applic - Objective Vital Signs: Vital Signs Temperature 97.1 F L 11/18/18 06:00 Pulse Rate 90 11/18/18 09:09 Respiratory Rate 18 11/18/18 08:53 Blood Pressure 113/72 11/18/18 08:53 O2 Sat by Pulse Oximetry (%) 95 11/17/18 21:00 Constitutional: Yes: Calm Cardiovascular: Yes: Regular Rate and Rhythm, S1, S2 Respiratory: Yes: CTA Bilaterally, Diminished (at bases) Gastrointestinal: Yes: Normal Bowel Sounds, Soft Integumentary: Yes: Rash Labs: CBC, BMP 11/18/18 05:25 11/18/18 05:25 INR, PTT INR 1.13 (0.83-1.09) H 11/05/18 07:45 Problem List - Problems (1) Pneumonia Assessment/Plan: rocephin to ceftin last dose today Code(s): J18.9 - PNEUMONIA, UNSPECIFIED ORGANISM (2) CHF (congestive heart failure) Assessment/Plan: EF 35-40% lisinopril low dose started on BB iv lasix Code(s): I50.9 - HEART FAILURE, UNSPECIFIED Qualifiers: Heart failure type: systolic (3) Atrial fibrillation Assessment/Plan: metoprolol Code(s): I48.91 - UNSPECIFIED ATRIAL FIBRILLATION Qualifiers: Atrial fibrillation type: chronic Qualified Code(s): I48.2 - Chronic atrial fibrillation (4) Anxiety and depression Assessment/Plan: ativan and seroquel Code(s): F41.9 - ANXIETY DISORDER, UNSPECIFIED; F32.9 - MAJOR DEPRESSIVE DISORDER, SINGLE EPISODE, UNSPECIFIED Assessment/Plan lytes repleted conitnue lasix and nasal oxygen plan is for [facility] once ready for dc
[2018-11-18] MEDS: ROSUVASTATIN CA 10 MG TABLET (FP) PO SCH (21:51)
[2018-11-19] MEDS: guaiFENesin/D-METHORPHAN HB 10 ML UNIT-DOSE CUPS PO PRN ×4 (06:20→22:17)
[2018-11-19 07:02] LABS: ALBUMIN 2.9 g/dl (3.4-5.0); BILIRUBIN,TOTAL 0.8 mg/dL (0.2-1); BLOOD UREA NITROGEN 16.9 mg/dL (7-18); CALCIUM 9.8 mg/dL (8.5-10.1); MAGNESIUM 1.7 mg/dL (1.8-2.4); TOT PROT 6.9 g/dl (6.4-8.2)
[2018-11-19 07:25] LABS: POTASSIUM 4.5 mmol/L (3.5-5.1)
[2018-11-19] MEDS ORDERED: PT OWN MED DRAWER 7, Y5N ONE ×2 (09:09→19:28)
[2018-11-19] MEDS: LISINOPRIL 5 MG TABLET (FP) PO SCH (09:13)
[2018-11-19] MEDS: LACTULOSE 20 GM/30 ML UDC (FOR ORAL USE ONLY) PO SCH ×2 (09:13→21:09)
[2018-11-19] MEDS: METOPROLOL SUCCINATE PO SCH ×2 (09:13→21:09)
[2018-11-19] MEDS: DIGOXIN 0.125 MG TABLET (FP) PO SCH (09:13)
[2018-11-19] MEDS: FUROSEMIDE 40 MG/4 ML INJECTABLE VIAL IVPUSH SCH (09:13)
[2018-11-19] MEDS: ASPIRIN 81 MG CHEWABLE TABLETS PO SCH (09:15)
[2018-11-19] MEDS: CYANOCOBALAMIN 1,000 MCG TABLET (FP) PO SCH (09:15)
[2018-11-19] MEDS: THIAMINE HCL 100 MG TABLET (FP) PO SCH (09:15)
[2018-11-19] MEDS: CALCIUM 500MG/VIT-D 200 UNITS COMBO TABLET (FP) PO SCH (09:15)
[2018-11-19] MEDS: LORazepam 1 MG TABLET PO SCH ×2 (09:15→21:10)
[2018-11-19] MEDS: MULTIVITAMINS (DAILY MVI) TABLET (FP) PO SCH (09:15)
[2018-11-19] MEDS: CEFUROXIME AXETIL 500 MG TABLET PO SCH (09:16)
[2018-11-19] MEDS: PANTOPRAZOLE 40 MG TABLET (FP) PO SCH (09:16)
[2018-11-19] MEDS: MAGNESIUM OXIDE 400 MG TABLET (FP) PO SCH ×2 (09:17→21:10)
[2018-11-19] MEDS: QUEtiapine FUMARATE 25 MG TABLET (FP) PO SCH ×2 (09:17→21:10)
[2018-11-19] MEDS: SERTRALINE HCL 25 MG TABLET (FP) PO SCH (09:18)
[2018-11-19] MEDS: TRIAMCINOLONE ACET 0.1% OINT 15 GM TUBE TP SCH ×2 (09:29→21:09)
[2018-11-19] MEDS: KETOCONAZOLE 2% CREAM - 60GM TUBE TP SCH (09:29)
[2018-11-19] MEDS: LIDOCAINE 5% TOPICAL PATCH TP SCH (09:34)
[2018-11-19] MEDS: FOLIC ACID 1 MG TABLET (FP) PO SCH (09:34)
--- NOTE | 2018-11-19 12:37 | PN ---
Progress Note, Physician History of Present Illness: pulmonary alert,feeling better,less dyspneic,+ cough - Current Medication List Current Medications: Active Medications Acetaminophen (Tylenol -) 650 mg PO Q6H PRN PRN Reason: PAIN LEVEL 1-5 Last Admin: 11/18/18 00:04 Dose: 650 mg Albuterol Sulfate (Ventolin 0.083% Nebulizer Soln -) 1 amp NEB RQID PRN PRN Reason: SHORT OF BREATH/WHEEZING Aspirin (Asa -) 81 mg PO DAILY [facility] Last Admin: 11/19/18 09:15 Dose: 81 mg Calcium Carbonate/Cholecalciferol (Os-Hardik 500+D -) 2 tab PO DAILY [facility] Last Admin: 11/19/18 09:15 Dose: 2 tab Cefuroxime Axetil (Ceftin -) 500 mg PO BID [facility] Last Admin: 11/19/18 09:16 Dose: 500 mg Cyanocobalamin (Vitamin B12 -) 1,000 mcg PO DAILY [facility] Last Admin: 11/19/18 09:15 Dose: 1,000 mcg Digoxin (Lanoxin -) 0.125 mg PO DAILY [facility] Last Admin: 11/19/18 09:13 Dose: 0.125 mg Folic Acid (Folic Acid -) 1 mg PO DAILY [facility] Last Admin: 11/19/18 09:34 Dose: 1 mg Furosemide (Lasix Injection -) 40 mg IVPUSH DAILY [facility] Last Admin: 11/19/18 09:13 Dose: 40 mg Guaifenesin (Robitussin Dm -) 10 ml PO Q4H PRN PRN Reason: COUGH Last Admin: 11/19/18 06:20 Dose: 10 ml Ketoconazole (Nizoral 2% Cream -) 1 applic TP DAILY [facility] Last Admin: 11/19/18 09:29 Dose: 1 applic Lactulose (Cephulac (Oral Use)) 20 gm PO BID [facility] Last Admin: 11/19/18 09:13 Dose: 20 gm Lidocaine (Lidoderm Patch -) 1 patch TP DAILY [facility] Last Admin: 11/19/18 09:34 Dose: 1 patch Lisinopril (Prinivil) 2.5 mg PO DAILY [facility] Last Admin: 11/19/18 09:13 Dose: 2.5 mg Lorazepam (Ativan -) 1 mg PO Q12H [facility] Last Admin: 11/19/18 09:15 Dose: 1 mg Magnesium Oxide (Mag-Ox -) 400 mg PO BID [facility] Last Admin: 11/19/18 09:17 Dose: 400 mg Metoprolol Succinate 50 mg/ (Metoprolol Succinate 100 mg) 150 mg PO BID [facility] Last Admin: 11/19/18 09:13 Dose: 150 mg Miscellaneous (Lidoderm Patch Removal) 1 each MC DAILY@2200 [facility] Last Admin: 11/18/18 21:57 Dose: 1 each Multivitamins/Minerals/Vitamin C (Tab-A-Vit -) 1 tab PO DAILY [facility] Last Admin: 11/19/18 09:15 Dose: 1 tab Pantoprazole Sodium (Protonix -) 40 mg PO DAILY [facility] Last Admin: 11/19/18 09:16 Dose: 40 mg Quetiapine Fumarate (Seroquel -) 25 mg PO BID [facility] Last Admin: 11/19/18 09:17 Dose: Not Given Rosuvastatin Calcium (Crestor -) 10 mg PO HS [facility] Last Admin: 11/18/18 21:51 Dose: 10 mg Sertraline HCl (Zoloft -) 25 mg PO DAILY [facility] Last Admin: 11/19/18 09:18 Dose: Not Given Thiamine HCl (Vitamin B1 -) 100 mg PO DAILY [facility] Last Admin: 11/19/18 09:15 Dose: 100 mg Triamcinolone Acetonide (Aristocort 0.1% Ointment -) 1 applic TP BID [facility] Last Admin: 11/19/18 09:29 Dose: 1 applic - Objective Vital Signs: Vital Signs Temperature 98.1 F 11/19/18 08:45 Pulse Rate 84 11/19/18 09:13 Respiratory Rate 19 11/19/18 08:45 Blood Pressure 124/94 11/19/18 08:45 O2 Sat by Pulse Oximetry (%) 97 11/18/18 21:00 Constitutional: Yes: Well Nourished, Calm Eyes: Yes: WNL HENT: Yes: WNL Neck: Yes: WNL Cardiovascular: Yes: Pulse Irregular, S1, S2 Respiratory: Yes: Rales (scattered julius rales and wheezes) Gastrointestinal: Yes: Normal Bowel Sounds, Soft Extremities: Yes: WNL Edema: No Labs: 11/19/18 05:20 INR, PTT INR 1.13 (0.83-1.09) H 11/05/18 07:45 Problem List - Problems (1) Alcohol intoxication Code(s): F10.929 - ALCOHOL USE, UNSPECIFIED WITH INTOXICATION, UNSPECIFIED Qualifiers: Complication of substance-induced condition: uncomplicated Qualified Code(s ): F10.920 - Alcohol use, unspecified with intoxication, uncomplicated (2) Atrial fibrillation Code(s): I48.91 - UNSPECIFIED ATRIAL FIBRILLATION Qualifiers: Atrial fibrillation type: chronic Qualified Code(s): I48.2 - Chronic atrial fibrillation (3) CKD (chronic kidney disease) Code(s): N18.9 - CHRONIC KIDNEY DISEASE, UNSPECIFIED (4) SOB (shortness of breath) Code(s): R06.02 - SHORTNESS OF BREATH (5) Chronic a-fib Code(s): I48.2 - CHRONIC ATRIAL FIBRILLATION (6) T2DM (type 2 diabetes mellitus) Code(s): E11.9 - TYPE 2 DIABETES MELLITUS WITHOUT COMPLICATIONS (7) Pneumonia Code(s): J18.9 - PNEUMONIA, UNSPECIFIED ORGANISM (8) CHF (congestive heart failure) Code(s): I50.9 - HEART FAILURE, UNSPECIFIED Qualifiers: Heart failure type: systolic Assessment/Plan IMP ACUTE RESPIRATORY DISTRESS LIKELY ACUTE CHF ? PNEUMONIA RAPID AFIB HTN DM ETOH ABUSE ANEMIA PLAN LASIX O2 RATE CONTROL PER CARDIOLOGY F/U CHEST X-RAYS DVT PROPHYLAXIS STRICT I+Os MONITOR H+H NORMAL TRANSFUSION THRESHOLD DR BEE Problem List - Problems (1) Alcohol intoxication Code(s): F10.929 - ALCOHOL USE, UNSPECIFIED WITH INTOXICATION, UNSPECIFIED Qualifiers: Complication of substance-induced condition: uncomplicated Qualified Code(s ): F10.920 - Alcohol use, unspecified with intoxication, uncomplicated (2) Atrial fibrillation Code(s): I48.91 - UNSPECIFIED ATRIAL FIBRILLATION Qualifiers: Atrial fibrillation type: chronic Qualified Code(s): I48.2 - Chronic atrial fibrillation (3) CKD (chronic kidney disease) Code(s): N18.9 - CHRONIC KIDNEY DISEASE, UNSPECIFIED (4) SOB (shortness of breath) Code(s): R06.02 - SHORTNESS OF BREATH (5) Chronic a-fib Code(s): I48.2 - CHRONIC ATRIAL FIBRILLATION (6) T2DM (type 2 diabetes mellitus) Code(s): E11.9 - TYPE 2 DIABETES MELLITUS WITHOUT COMPLICATIONS (7) Pneumonia Code(s): J18.9 - PNEUMONIA, UNSPECIFIED ORGANISM (8) CHF (congestive heart failure) Code(s): I50.9 - HEART FAILURE, UNSPECIFIED
--- NOTE | 2018-11-19 18:29 | PN ---
Progress Note, Physician Chief Complaint: ETOH Abuse Alcoholic Fatty Liver History of Present Illness: Previous notes and events reviewed awake and alert NAD continue with SOB on exertion complain of productive cough - Current Medication List Current Medications: Active Medications Acetaminophen (Tylenol -) 650 mg PO Q6H PRN PRN Reason: PAIN LEVEL 1-5 Last Admin: 11/18/18 00:04 Dose: 650 mg Albuterol Sulfate (Ventolin 0.083% Nebulizer Soln -) 1 amp NEB RQID PRN PRN Reason: SHORT OF BREATH/WHEEZING Aspirin (Asa -) 81 mg PO DAILY [facility] Last Admin: 11/19/18 09:15 Dose: 81 mg Calcium Carbonate/Cholecalciferol (Os-Hardik 500+D -) 2 tab PO DAILY [facility] Last Admin: 11/19/18 09:15 Dose: 2 tab Cefuroxime Axetil (Ceftin -) 500 mg PO BID [facility] Last Admin: 11/19/18 09:16 Dose: 500 mg Cyanocobalamin (Vitamin B12 -) 1,000 mcg PO DAILY [facility] Last Admin: 11/19/18 09:15 Dose: 1,000 mcg Digoxin (Lanoxin -) 0.125 mg PO DAILY [facility] Last Admin: 11/19/18 09:13 Dose: 0.125 mg Folic Acid (Folic Acid -) 1 mg PO DAILY [facility] Last Admin: 11/19/18 09:34 Dose: 1 mg Furosemide (Lasix Injection -) 40 mg IVPUSH DAILY [facility] Last Admin: 11/19/18 09:13 Dose: 40 mg Guaifenesin (Robitussin Dm -) 10 ml PO Q4H PRN PRN Reason: COUGH Last Admin: 11/19/18 18:10 Dose: 10 ml Ketoconazole (Nizoral 2% Cream -) 1 applic TP DAILY [facility] Last Admin: 11/19/18 09:29 Dose: 1 applic Lactulose (Cephulac (Oral Use)) 20 gm PO BID [facility] Last Admin: 11/19/18 09:13 Dose: 20 gm Lidocaine (Lidoderm Patch -) 1 patch TP DAILY [facility] Last Admin: 11/19/18 09:34 Dose: 1 patch Lisinopril (Prinivil) 2.5 mg PO DAILY [facility] Last Admin: 11/19/18 09:13 Dose: 2.5 mg Lorazepam (Ativan -) 1 mg PO Q12H [facility] Last Admin: 11/19/18 09:15 Dose: 1 mg Magnesium Oxide (Mag-Ox -) 400 mg PO BID [facility] Last Admin: 11/19/18 09:17 Dose: 400 mg Metoprolol Succinate 50 mg/ (Metoprolol Succinate 100 mg) 150 mg PO BID [facility] Last Admin: 11/19/18 09:13 Dose: 150 mg Miscellaneous (Lidoderm Patch Removal) 1 each MC DAILY@2200 [facility] Last Admin: 11/18/18 21:57 Dose: 1 each Multivitamins/Minerals/Vitamin C (Tab-A-Vit -) 1 tab PO DAILY [facility] Last Admin: 11/19/18 09:15 Dose: 1 tab Pantoprazole Sodium (Protonix -) 40 mg PO DAILY [facility] Last Admin: 11/19/18 09:16 Dose: 40 mg Quetiapine Fumarate (Seroquel -) 25 mg PO BID [facility] Last Admin: 11/19/18 09:17 Dose: Not Given Rosuvastatin Calcium (Crestor -) 10 mg PO HS [facility] Last Admin: 11/18/18 21:51 Dose: 10 mg Sertraline HCl (Zoloft -) 25 mg PO DAILY [facility] Last Admin: 11/19/18 09:18 Dose: Not Given Thiamine HCl (Vitamin B1 -) 100 mg PO DAILY [facility] Last Admin: 11/19/18 09:15 Dose: 100 mg Triamcinolone Acetonide (Aristocort 0.1% Ointment -) 1 applic TP BID [facility] Last Admin: 11/19/18 09:29 Dose: 1 applic - Objective Vital Signs: Vital Signs Temperature 98 F 11/19/18 17:46 Pulse Rate 80 11/19/18 17:46 Respiratory Rate 18 11/19/18 17:46 Blood Pressure 127/78 11/19/18 17:46 O2 Sat by Pulse Oximetry (%) 95 11/19/18 09:00 Constitutional: Yes: No Distress, Calm Eyes: Yes: Conjunctiva Clear HENT: Yes: Atraumatic Cardiovascular: Yes: Regular Rate and Rhythm Respiratory: Yes: Regular, On Nasal O2, Rhonchi Gastrointestinal: Yes: Normal Bowel Sounds, Soft Musculoskeletal: Yes: WNL Extremities: Yes: WNL Edema: No Integumentary: Yes: Rash (psoriasis) Neurological: Yes: Alert, Oriented Psychiatric: Yes: Alert, Oriented Labs: CBC, BMP 11/18/18 05:25 11/19/18 05:20 INR, PTT INR 1.13 (0.83-1.09) H 11/05/18 07:45 Problem List - Problems (1) Atrial fibrillation Assessment/Plan: -cardiology on board -Aspirin and Metoprolol Code(s): I48.91 - UNSPECIFIED ATRIAL FIBRILLATION Qualifiers: Atrial fibrillation type: chronic Qualified Code(s): I48.2 - Chronic atrial fibrillation (2) Rhabdomyolysis Assessment/Plan: -resolved Code(s): M62.82 - RHABDOMYOLYSIS Qualifiers: Rhabdomyolysis type: non-traumatic Qualified Code(s): M62.82 - Rhabdomyolysis (3) Abdominal pain Assessment/Plan: -Zofran prn for nausea -Abdominal US shows fatty infiltration of liver--GI follow up as outpatient Code(s): R10.9 - UNSPECIFIED ABDOMINAL PAIN Qualifiers: Abdominal location: generalized Qualified Code(s): R10.84 - Generalized abdominal pain (4) Alcohol dependence Assessment/Plan: -consult for Dr Bishop -Librium taper completed -psych on board -fall precaution -Thiamine, Folic acid, MVI -Detox placement for discharge Code(s): F10.20 - ALCOHOL DEPENDENCE, UNCOMPLICATED Qualifiers: Substance use status: unspecified alcohol-induced disorder Qualified Code(s ): F10.29 - Alcohol dependence with unspecified alcohol-induced disorder (5) Depression Assessment/Plan: -psych consult -Zoloft -Seroquel BID -Ativan 1mg po q12h prn for anxiety Code(s): F32.9 - MAJOR DEPRESSIVE DISORDER, SINGLE EPISODE, UNSPECIFIED (6) HTN (hypertension) Assessment/Plan: -low Na diet Code(s): I10 - ESSENTIAL (PRIMARY) HYPERTENSION (7) SOB (shortness of breath) Assessment/Plan: -CXR shows new bibasilar infiltrates with fluid and atelectasis with congestive changes -Pulm and ID consult -Ceftin -bronchodilator -O2 via NC -keep SpO2 >90% -Urine Legionella neg Code(s): R06.02 - SHORTNESS OF BREATH (8) CHF (congestive heart failure) Assessment/Plan: -Cardiology and Pulm on board -Echo with EF 35-40% -1L fluid restriction -whalen weights -BNP 07969 -Digoxin, Furosemide, Lisinopril, Metoprolol Code(s): I50.9 - HEART FAILURE, UNSPECIFIED Qualifiers: Heart failure type: systolic Assessment/Plan see problem list dvt ppx
[2018-11-19] MEDS: ROSUVASTATIN CA 10 MG TABLET (FP) PO SCH (21:10)
[2018-11-19] MEDS: LIDOCAINE PATCH REMOVAL MC SCH (21:11)
[2018-11-20] MEDS: guaiFENesin/D-METHORPHAN HB 10 ML UNIT-DOSE CUPS PO PRN ×4 (02:17→21:40)
[2018-11-20 06:41] LABS: HEMATOCRIT 37.6 % (32.4-45.2); HEMOGLOBIN 12.3 GM/dL (10.7-15.3); MCHC 32.8 g/dl (32.0-36.0); MEAN CELL VOLUME 85.5 fl (80-96); PLATELET COUNT 267 K/MM3 (134-434); RBC 4.39 M/mm3 (3.60-5.2); RDW 16.6 % (11.6-15.6); WHITE BLOOD COUNT 7.9 K/mm3 (4.0-10.0)
[2018-11-20 06:54] LABS: BILIRUBIN,TOTAL 0.6 mg/dL (0.2-1); BLOOD UREA NITROGEN 15.9 mg/dL (7-18); CALCIUM 9.8 mg/dL (8.5-10.1); TOT PROT 6.7 g/dl (6.4-8.2)
[2018-11-20] MEDS ORDERED: PT OWN MED DRAWER 7, Y5N ONE (10:11)
[2018-11-20] MEDS: FOLIC ACID 1 MG TABLET (FP) PO SCH (10:19)
[2018-11-20] MEDS: ASPIRIN 81 MG CHEWABLE TABLETS PO SCH (10:19)
[2018-11-20] MEDS: LACTULOSE 20 GM/30 ML UDC (FOR ORAL USE ONLY) PO SCH ×2 (10:19→21:39)
[2018-11-20] MEDS: DIGOXIN 0.125 MG TABLET (FP) PO SCH (10:19)
[2018-11-20] MEDS: LORazepam 1 MG TABLET PO SCH ×2 (10:19→21:40)
[2018-11-20] MEDS: MAGNESIUM OXIDE 400 MG TABLET (FP) PO SCH ×2 (10:20→21:40)
[2018-11-20] MEDS: FUROSEMIDE 40 MG/4 ML INJECTABLE VIAL IVPUSH SCH (10:20)
[2018-11-20] MEDS: CALCIUM 500MG/VIT-D 200 UNITS COMBO TABLET (FP) PO SCH (10:20)
[2018-11-20] MEDS: LIDOCAINE 5% TOPICAL PATCH TP SCH (10:20)
[2018-11-20] MEDS: LISINOPRIL 5 MG TABLET (FP) PO SCH (10:21)
[2018-11-20] MEDS: MULTIVITAMINS (DAILY MVI) TABLET (FP) PO SCH (10:22)
[2018-11-20] MEDS: THIAMINE HCL 100 MG TABLET (FP) PO SCH (10:22)
[2018-11-20] MEDS: QUEtiapine FUMARATE 25 MG TABLET (FP) PO SCH ×2 (10:22→21:47)
[2018-11-20] MEDS: CYANOCOBALAMIN 1,000 MCG TABLET (FP) PO SCH (10:22)
[2018-11-20] MEDS: METOPROLOL SUCCINATE PO SCH ×2 (10:22→21:39)
[2018-11-20] MEDS: PANTOPRAZOLE 40 MG TABLET (FP) PO SCH (10:22)
[2018-11-20] MEDS: SERTRALINE HCL 25 MG TABLET (FP) PO SCH (10:23)
[2018-11-20] MEDS: KETOCONAZOLE 2% CREAM - 60GM TUBE TP SCH (10:37)
[2018-11-20] MEDS: TRIAMCINOLONE ACET 0.1% OINT 15 GM TUBE TP SCH ×2 (10:37→21:41)
--- NOTE | 2018-11-20 10:46 | PN ---
Progress Note, Physician History of Present Illness: pulmonary alert,feeling better,less dyspneic,less cough - Current Medication List Current Medications: Active Medications Acetaminophen (Tylenol -) 650 mg PO Q6H PRN PRN Reason: PAIN LEVEL 1-5 Last Admin: 11/18/18 00:04 Dose: 650 mg Albuterol Sulfate (Ventolin 0.083% Nebulizer Soln -) 1 amp NEB RQID PRN PRN Reason: SHORT OF BREATH/WHEEZING Aspirin (Asa -) 81 mg PO DAILY [facility] Last Admin: 11/20/18 10:19 Dose: 81 mg Calcium Carbonate/Cholecalciferol (Os-Hardik 500+D -) 2 tab PO DAILY [facility] Last Admin: 11/20/18 10:20 Dose: 2 tab Cyanocobalamin (Vitamin B12 -) 1,000 mcg PO DAILY [facility] Last Admin: 11/20/18 10:22 Dose: 1,000 mcg Digoxin (Lanoxin -) 0.125 mg PO DAILY [facility] Last Admin: 11/20/18 10:19 Dose: 0.125 mg Folic Acid (Folic Acid -) 1 mg PO DAILY [facility] Last Admin: 11/20/18 10:19 Dose: 1 mg Furosemide (Lasix Injection -) 40 mg IVPUSH DAILY [facility] Last Admin: 11/20/18 10:20 Dose: 40 mg Guaifenesin (Robitussin Dm -) 10 ml PO Q4H PRN PRN Reason: COUGH Last Admin: 11/20/18 10:27 Dose: 10 ml Ketoconazole (Nizoral 2% Cream -) 1 applic TP DAILY [facility] Last Admin: 11/20/18 10:37 Dose: 1 applic Lactulose (Cephulac (Oral Use)) 20 gm PO BID [facility] Last Admin: 11/20/18 10:19 Dose: 20 gm Lidocaine (Lidoderm Patch -) 1 patch TP DAILY [facility] Last Admin: 11/20/18 10:20 Dose: 1 patch Lisinopril (Prinivil) 2.5 mg PO DAILY [facility] Last Admin: 11/20/18 10:21 Dose: 2.5 mg Lorazepam (Ativan -) 1 mg PO Q12H [facility] Last Admin: 11/20/18 10:19 Dose: 1 mg Magnesium Oxide (Mag-Ox -) 400 mg PO BID [facility] Last Admin: 11/20/18 10:20 Dose: 400 mg Metoprolol Succinate 50 mg/ (Metoprolol Succinate 100 mg) 150 mg PO BID [facility] Last Admin: 11/20/18 10:22 Dose: 150 mg Miscellaneous (Lidoderm Patch Removal) 1 each [facility] DAILY@2200 [facility] Last Admin: 11/19/18 21:11 Dose: 1 each Multivitamins/Minerals/Vitamin C (Tab-A-Vit -) 1 tab PO DAILY [facility] Last Admin: 11/20/18 10:22 Dose: 1 tab Pantoprazole Sodium (Protonix -) 40 mg PO DAILY [facility] Last Admin: 11/20/18 10:22 Dose: 40 mg Quetiapine Fumarate (Seroquel -) 25 mg PO BID [facility] Last Admin: 11/20/18 10:22 Dose: Not Given Rosuvastatin Calcium (Crestor -) 10 mg PO HS [facility] Last Admin: 11/19/18 21:10 Dose: 10 mg Sertraline HCl (Zoloft -) 25 mg PO DAILY [facility] Last Admin: 11/20/18 10:23 Dose: Not Given Thiamine HCl (Vitamin B1 -) 100 mg PO DAILY [facility] Last Admin: 11/20/18 10:22 Dose: 100 mg Triamcinolone Acetonide (Aristocort 0.1% Ointment -) 1 applic TP BID [facility] Last Admin: 11/20/18 10:37 Dose: 1 applic - Objective Vital Signs: Vital Signs Temperature 97.6 F 11/20/18 06:00 Pulse Rate 62 11/20/18 10:19 Respiratory Rate 18 11/20/18 06:00 Blood Pressure 139/65 11/20/18 06:00 O2 Sat by Pulse Oximetry (%) 98 11/19/18 20:56 Constitutional: Yes: Well Nourished, Calm Eyes: Yes: WNL HENT: Yes: WNL Neck: Yes: WNL Cardiovascular: Yes: Pulse Irregular, S1, S2 Respiratory: Yes: Rales (scattered crackles) Gastrointestinal: Yes: Normal Bowel Sounds, Soft Extremities: Yes: WNL Edema: No Labs: CBC, BMP 11/20/18 05:05 11/20/18 05:05 INR, PTT INR 1.13 (0.83-1.09) H 11/05/18 07:45 - ....Imaging Chest X-ray: Report Reviewed, Image Reviewed (less congestion bilaterally) Problem List - Problems (1) Alcohol intoxication Code(s): F10.929 - ALCOHOL USE, UNSPECIFIED WITH INTOXICATION, UNSPECIFIED Qualifiers: Complication of substance-induced condition: uncomplicated Qualified Code(s ): F10.920 - Alcohol use, unspecified with intoxication, uncomplicated (2) Atrial fibrillation Code(s): I48.91 - UNSPECIFIED ATRIAL FIBRILLATION Qualifiers: Atrial fibrillation type: chronic Qualified Code(s): I48.2 - Chronic atrial fibrillation (3) CKD (chronic kidney disease) Code(s): N18.9 - CHRONIC KIDNEY DISEASE, UNSPECIFIED (4) SOB (shortness of breath) Code(s): R06.02 - SHORTNESS OF BREATH (5) Chronic a-fib Code(s): I48.2 - CHRONIC ATRIAL FIBRILLATION (6) T2DM (type 2 diabetes mellitus) Code(s): E11.9 - TYPE 2 DIABETES MELLITUS WITHOUT COMPLICATIONS (7) Pneumonia Code(s): J18.9 - PNEUMONIA, UNSPECIFIED ORGANISM (8) CHF (congestive heart failure) Code(s): I50.9 - HEART FAILURE, UNSPECIFIED Qualifiers: Heart failure type: systolic Assessment/Plan IMP ACUTE RESPIRATORY DISTRESS LIKELY ACUTE CHF ? PNEUMONIA RAPID AFIB HTN DM ETOH ABUSE ANEMIA PLAN LASIX O2 RATE CONTROL PER CARDIOLOGY F/U CHEST X-RAYS DVT PROPHYLAXIS STRICT I+Os MONITOR H+H NORMAL TRANSFUSION THRESHOLD DR BEE Problem List - Problems (1) Alcohol intoxication Code(s): F10.929 - ALCOHOL USE, UNSPECIFIED WITH INTOXICATION, UNSPECIFIED Qualifiers: Complication of substance-induced condition: uncomplicated Qualified Code(s ): F10.920 - Alcohol use, unspecified with intoxication, uncomplicated (2) Atrial fibrillation Code(s): I48.91 - UNSPECIFIED ATRIAL FIBRILLATION Qualifiers: Atrial fibrillation type: chronic Qualified Code(s): I48.2 - Chronic atrial fibrillation (3) CKD (chronic kidney disease) Code(s): N18.9 - CHRONIC KIDNEY DISEASE, UNSPECIFIED (4) SOB (shortness of breath) Code(s): R06.02 - SHORTNESS OF BREATH (5) Chronic a-fib Code(s): I48.2 - CHRONIC ATRIAL FIBRILLATION (6) T2DM (type 2 diabetes mellitus) Code(s): E11.9 - TYPE 2 DIABETES MELLITUS WITHOUT COMPLICATIONS (7) Pneumonia Code(s): J18.9 - PNEUMONIA, UNSPECIFIED ORGANISM (8) CHF (congestive heart failure) Code(s): I50.9 - HEART FAILURE, UNSPECIFIED
--- NOTE | 2018-11-20 16:52 | PN ---
Progress Note, Physician Chief Complaint: ETOH Abuse Alcoholic Fatty Liver History of Present Illness: Previous notes and events reviewed awake and alert NAD complain of weakness continue with SOB on exertion sts cough is better since receiving RObitussin - Current Medication List Current Medications: Active Medications Acetaminophen (Tylenol -) 650 mg PO Q6H PRN PRN Reason: PAIN LEVEL 1-5 Last Admin: 11/18/18 00:04 Dose: 650 mg Albuterol Sulfate (Ventolin 0.083% Nebulizer Soln -) 1 amp NEB RQID PRN PRN Reason: SHORT OF BREATH/WHEEZING Aspirin (Asa -) 81 mg PO DAILY REPLACED BY [facility] Last Admin: 11/20/18 10:19 Dose: 81 mg Calcium Carbonate/Cholecalciferol (Os-Hardik 500+D -) 2 tab PO DAILY REPLACED BY [facility] Last Admin: 11/20/18 10:20 Dose: 2 tab Cyanocobalamin (Vitamin B12 -) 1,000 mcg PO DAILY REPLACED BY [facility] Last Admin: 11/20/18 10:22 Dose: 1,000 mcg Digoxin (Lanoxin -) 0.125 mg PO DAILY REPLACED BY [facility] Last Admin: 11/20/18 10:19 Dose: 0.125 mg Folic Acid (Folic Acid -) 1 mg PO DAILY REPLACED BY [facility] Last Admin: 11/20/18 10:19 Dose: 1 mg Furosemide (Lasix Injection -) 40 mg IVPUSH DAILY REPLACED BY [facility] Last Admin: 11/20/18 10:20 Dose: 40 mg Guaifenesin (Robitussin Dm -) 10 ml PO Q4H PRN PRN Reason: COUGH Last Admin: 11/20/18 10:27 Dose: 10 ml Ketoconazole (Nizoral 2% Cream -) 1 applic TP DAILY REPLACED BY [facility] Last Admin: 11/20/18 10:37 Dose: 1 applic Lactulose (Cephulac (Oral Use)) 20 gm PO BID REPLACED BY [facility] Last Admin: 11/20/18 10:19 Dose: 20 gm Lidocaine (Lidoderm Patch -) 1 patch TP DAILY REPLACED BY [facility] Last Admin: 11/20/18 10:20 Dose: 1 patch Lisinopril (Prinivil) 2.5 mg PO DAILY REPLACED BY [facility] Last Admin: 11/20/18 10:21 Dose: 2.5 mg Lorazepam (Ativan -) 1 mg PO Q12H [facility] Last Admin: 11/20/18 10:19 Dose: 1 mg Magnesium Oxide (Mag-Ox -) 400 mg PO BID REPLACED BY [facility] Last Admin: 11/20/18 10:20 Dose: 400 mg Metoprolol Succinate 50 mg/ (Metoprolol Succinate 100 mg) 150 mg PO BID REPLACED BY [facility] Last Admin: 11/20/18 10:22 Dose: 150 mg Miscellaneous (Lidoderm Patch Removal) 1 each MC DAILY@2200 REPLACED BY [facility] Last Admin: 11/19/18 21:11 Dose: 1 each Multivitamins/Minerals/Vitamin C (Tab-A-Vit -) 1 tab PO DAILY REPLACED BY [facility] Last Admin: 11/20/18 10:22 Dose: 1 tab Pantoprazole Sodium (Protonix -) 40 mg PO DAILY REPLACED BY [facility] Last Admin: 11/20/18 10:22 Dose: 40 mg Quetiapine Fumarate (Seroquel -) 25 mg PO BID REPLACED BY [facility] Last Admin: 11/20/18 10:22 Dose: Not Given Rosuvastatin Calcium (Crestor -) 10 mg PO HS REPLACED BY [facility] Last Admin: 11/19/18 21:10 Dose: 10 mg Sertraline HCl (Zoloft -) 25 mg PO DAILY REPLACED BY [facility] Last Admin: 11/20/18 10:23 Dose: Not Given Thiamine HCl (Vitamin B1 -) 100 mg PO DAILY REPLACED BY [facility] Last Admin: 11/20/18 10:22 Dose: 100 mg Triamcinolone Acetonide (Aristocort 0.1% Ointment -) 1 applic TP BID REPLACED BY [facility] Last Admin: 11/20/18 10:37 Dose: 1 applic - Objective Vital Signs: Vital Signs Temperature 97.8 F 11/20/18 14:00 Pulse Rate 75 11/20/18 14:00 Respiratory Rate 18 11/20/18 14:00 Blood Pressure 130/78 11/20/18 14:00 O2 Sat by Pulse Oximetry (%) 97 11/20/18 10:00 Constitutional: Yes: No Distress, Calm Eyes: Yes: Conjunctiva Clear HENT: Yes: Atraumatic Cardiovascular: Yes: Pulse Irregular Respiratory: Yes: Regular, Diminished, On Nasal O2 Gastrointestinal: Yes: Normal Bowel Sounds, Soft Musculoskeletal: Yes: Muscle Weakness Extremities: Yes: WNL Edema: No Integumentary: Yes: Rash (psoriasis) Neurological: Yes: Alert, Oriented Psychiatric: Yes: Alert, Oriented Labs: CBC, BMP 11/20/18 05:05 11/20/18 05:05 INR, PTT INR 1.13 (0.83-1.09) H 11/05/18 07:45 Microbiology 11/11/18 19:00 Blood - Peripheral Venous Blood Culture - Final NO GROWTH AFTER 5 DAYS INCUBATION 11/11/18 17:05 Blood - Peripheral Venous Blood Culture - Final NO GROWTH AFTER 5 DAYS INCUBATION 11/13/18 18:40 Sputum - Expectorated Gram Stain - Final 11/13/18 18:40 Sputum - Expectorated Sputum Culture - Final Yeast Like Organism 11/11/18 16:00 Urine - Urine Clean Catch Urine Culture - Final Lactobacillus Species 11/12/18 16:23 Urine For Antigen Detection Legionella Antigen - Final 11/12/18 16:23 Urine For Antigen Detection Streptococcus pneumoniae Antigen (M - Final Problem List - Problems (1) Atrial fibrillation Assessment/Plan: -cardiology on board -Aspirin and Metoprolol Code(s): I48.91 - UNSPECIFIED ATRIAL FIBRILLATION Qualifiers: Atrial fibrillation type: chronic Qualified Code(s): I48.2 - Chronic atrial fibrillation (2) Rhabdomyolysis Assessment/Plan: -resolved Code(s): M62.82 - RHABDOMYOLYSIS Qualifiers: Rhabdomyolysis type: non-traumatic Qualified Code(s): M62.82 - Rhabdomyolysis (3) Abdominal pain Assessment/Plan: -Zofran prn for nausea -Abdominal US shows fatty infiltration of liver--GI follow up as outpatient Code(s): R10.9 - UNSPECIFIED ABDOMINAL PAIN Qualifiers: Abdominal location: generalized Qualified Code(s): R10.84 - Generalized abdominal pain (4) Alcohol dependence Assessment/Plan: -consult for Dr Bishop -George taper completed -psych on board -fall precaution -Thiamine, Folic acid, MVI -Detox placement for discharge Code(s): F10.20 - ALCOHOL DEPENDENCE, UNCOMPLICATED Qualifiers: Substance use status: unspecified alcohol-induced disorder Qualified Code(s ): F10.29 - Alcohol dependence with unspecified alcohol-induced disorder (5) Depression Assessment/Plan: -psych consult -Zoloft -Seroquel BID -Ativan 1mg po q12h for anxiety Code(s): F32.9 - MAJOR DEPRESSIVE DISORDER, SINGLE EPISODE, UNSPECIFIED (6) HTN (hypertension) Assessment/Plan: -low Na diet Code(s): I10 - ESSENTIAL (PRIMARY) HYPERTENSION (7) SOB (shortness of breath) Assessment/Plan: -CXR shows new bibasilar infiltrates with fluid and atelectasis with congestive changes -follow up CXR -Pulm and ID consult -bronchodilator -O2 via NC -keep SpO2 >90% -Urine Legionella neg Code(s): R06.02 - SHORTNESS OF BREATH (8) CHF (congestive heart failure) Assessment/Plan: -Cardiology and Pulm on board -Echo with EF 35-40% -1L fluid restriction -whalen weights -BNP [id number] -Digoxin, Furosemide, Lisinopril, Metoprolol Code(s): I50.9 - HEART FAILURE, UNSPECIFIED Qualifiers: Heart failure type: systolic Assessment/Plan see problem list dvt ppx
[2018-11-20] MEDS: LIDOCAINE PATCH REMOVAL MC SCH (21:40)
[2018-11-20] MEDS: ROSUVASTATIN CA 10 MG TABLET (FP) PO SCH (21:40)
[2018-11-21] MEDS: guaiFENesin/D-METHORPHAN HB 10 ML UNIT-DOSE CUPS PO PRN ×5 (01:33→22:04)
[2018-11-21] MEDS: ACETAMINOPHEN 325 MG TABLET (FP) PO PRN (04:20)
[2018-11-21 06:14] LABS: HEMATOCRIT 38.9 % (32.4-45.2); HEMOGLOBIN 12.6 GM/dL (10.7-15.3); MCH 27.4 pg (25.7-33.7); MCHC 32.3 g/dl (32.0-36.0); MEAN CELL VOLUME 84.8 fl (80-96); MEAN PLT VOLUME 10.1 fl (7.5-11.1); PLATELET COUNT 276 K/MM3 (134-434); RBC 4.59 M/mm3 (3.60-5.2); RDW 16.5 % (11.6-15.6); WHITE BLOOD COUNT 8.7 K/mm3 (4.0-10.0)
[2018-11-21 06:41] LABS: BILIRUBIN,TOTAL 0.6 mg/dL (0.2-1); BLOOD UREA NITROGEN 21.4 mg/dL (7-18); CALCIUM 9.9 mg/dL (8.5-10.1); CREATININE 1.1 mg/dL (0.55-1.3); POTASSIUM 3.8 mmol/L (3.5-5.1)
[2018-11-21] MEDS: MULTIVITAMINS (DAILY MVI) TABLET (FP) PO SCH (09:01)
[2018-11-21] MEDS: LORazepam 1 MG TABLET PO SCH ×2 (09:02→21:34)
[2018-11-21] MEDS: MAGNESIUM OXIDE 400 MG TABLET (FP) PO SCH ×2 (09:02→21:34)
[2018-11-21] MEDS: LISINOPRIL 5 MG TABLET (FP) PO SCH (09:02)
[2018-11-21] MEDS: ASPIRIN 81 MG CHEWABLE TABLETS PO SCH (09:02)
[2018-11-21] MEDS: CYANOCOBALAMIN 1,000 MCG TABLET (FP) PO SCH (09:03)
[2018-11-21] MEDS: METOPROLOL SUCCINATE PO SCH ×2 (09:04→21:33)
[2018-11-21] MEDS: DIGOXIN 0.125 MG TABLET (FP) PO SCH (09:04)
[2018-11-21] MEDS: PANTOPRAZOLE 40 MG TABLET (FP) PO SCH (09:05)
[2018-11-21] MEDS: CALCIUM 500MG/VIT-D 200 UNITS COMBO TABLET (FP) PO SCH (09:05)
[2018-11-21] MEDS: FOLIC ACID 1 MG TABLET (FP) PO SCH (09:05)
[2018-11-21] MEDS: SERTRALINE HCL 25 MG TABLET (FP) PO SCH (09:05)
[2018-11-21] MEDS: QUEtiapine FUMARATE 25 MG TABLET (FP) PO SCH ×2 (09:05→21:34)
[2018-11-21] MEDS: THIAMINE HCL 100 MG TABLET (FP) PO SCH (09:06)
[2018-11-21] MEDS: LIDOCAINE 5% TOPICAL PATCH TP SCH (09:09)
[2018-11-21] MEDS: TRIAMCINOLONE ACET 0.1% OINT 15 GM TUBE TP SCH ×2 (09:09→21:34)
[2018-11-21] MEDS: LACTULOSE 20 GM/30 ML UDC (FOR ORAL USE ONLY) PO SCH ×3 (09:09→21:34)
[2018-11-21] MEDS: FUROSEMIDE 40 MG/4 ML INJECTABLE VIAL IVPUSH SCH (09:10)
[2018-11-21] MEDS: KETOCONAZOLE 2% CREAM - 60GM TUBE TP SCH (09:12)
--- NOTE | 2018-11-21 12:28 | PN ---
Progress Note (short form) - Note Progress Note: PULMONARY Still with dyspnea on exertion. Reports some wheezing. Vital Signs Period Temp Pulse Resp BP Sys/Rodríguez Pulse Ox Last 24 Hr 96.3 F-97.9 F 67-78 18-18 106-133/54-95 96-96 Gen: NAD at rest Heart: RRR Lung: decreased breath sounds at the bases, no wheezes Abd: soft, nontender Ext: no edema CBC, BMP 11/21/18 05:00 11/21/18 05:00 Active Medications Acetaminophen (Tylenol -) 650 mg PO Q6H PRN PRN Reason: PAIN LEVEL 1-5 Last Admin: 11/21/18 04:20 Dose: 650 mg Albuterol Sulfate (Ventolin 0.083% Nebulizer Soln -) 1 amp NEB RQID PRN PRN Reason: SHORT OF BREATH/WHEEZING Aspirin (Asa -) 81 mg PO DAILY [facility] Last Admin: 11/21/18 09:02 Dose: 81 mg Calcium Carbonate/Cholecalciferol (Os-Hardik 500+D -) 2 tab PO DAILY [facility] Last Admin: 11/21/18 09:05 Dose: 2 tab Cyanocobalamin (Vitamin B12 -) 1,000 mcg PO DAILY [facility] Last Admin: 11/21/18 09:03 Dose: 1,000 mcg Digoxin (Lanoxin -) 0.125 mg PO DAILY [facility] Last Admin: 11/21/18 09:04 Dose: 0.125 mg Folic Acid (Folic Acid -) 1 mg PO DAILY [facility] Last Admin: 11/21/18 09:05 Dose: 1 mg Furosemide (Lasix Injection -) 40 mg IVPUSH DAILY [facility] Last Admin: 11/21/18 09:10 Dose: 40 mg Guaifenesin (Robitussin Dm -) 10 ml PO Q4H PRN PRN Reason: COUGH Last Admin: 11/21/18 09:08 Dose: 10 ml Ketoconazole (Nizoral 2% Cream -) 1 applic TP DAILY [facility] Last Admin: 11/21/18 09:12 Dose: 1 applic Lactulose (Cephulac (Oral Use)) 20 gm PO BID [facility] Last Admin: 11/21/18 10:53 Dose: Not Given Lidocaine (Lidoderm Patch -) 1 patch TP DAILY [facility] Last Admin: 11/21/18 09:09 Dose: Not Given Lisinopril (Prinivil) 2.5 mg PO DAILY [facility] Last Admin: 11/21/18 09:02 Dose: 2.5 mg Lorazepam (Ativan -) 1 mg PO Q12H [facility] Last Admin: 11/21/18 09:02 Dose: 1 mg Magnesium Oxide (Mag-Ox -) 400 mg PO BID [facility] Last Admin: 11/21/18 09:02 Dose: 400 mg Metoprolol Succinate 50 mg/ (Metoprolol Succinate 100 mg) 150 mg PO BID [facility] Last Admin: 11/21/18 09:04 Dose: 150 mg Miscellaneous (Lidoderm Patch Removal) 1 each MC DAILY@2200 [facility] Last Admin: 11/20/18 21:40 Dose: 1 each Multivitamins/Minerals/Vitamin C (Tab-A-Vit -) 1 tab PO DAILY [facility] Last Admin: 11/21/18 09:01 Dose: 1 tab Pantoprazole Sodium (Protonix -) 40 mg PO DAILY [facility] Last Admin: 11/21/18 09:05 Dose: 40 mg Quetiapine Fumarate (Seroquel -) 25 mg PO BID [facility] Last Admin: 11/21/18 09:05 Dose: Not Given Rosuvastatin Calcium (Crestor -) 10 mg PO HS [facility] Last Admin: 11/20/18 21:40 Dose: 10 mg Sertraline HCl (Zoloft -) 25 mg PO DAILY [facility] Last Admin: 11/21/18 09:05 Dose: Not Given Thiamine HCl (Vitamin B1 -) 100 mg PO DAILY [facility] Last Admin: 11/21/18 09:06 Dose: 100 mg Triamcinolone Acetonide (Aristocort 0.1% Ointment -) 1 applic TP BID [facility] Last Admin: 11/21/18 09:09 Dose: 1 applic A/P Acute on Chronic Systolic Heart Failure Mitral Regurgitation Atrial Fibrillation r/o Pneumonia HTN DM - continue lasix - monitor urine output, creatinine - rate control - anticoagulation per cardiology - inhaled bronchodilators as needed - will start symbicort - O2 to keep Spo2 >90% - DVT prophylaxis
[2018-11-21] MEDS: FUROSEMIDE 40 MG TABLET (FP) PO SCH (13:36)
--- NOTE | 2018-11-21 13:37 | DS ---
Physical Examination Vital Signs: Vital Signs Temperature 96.3 F L 11/21/18 09:17 Pulse Rate 70 11/21/18 09:17 Respiratory Rate 18 11/21/18 09:17 Blood Pressure 127/67 11/21/18 09:17 O2 Sat by Pulse Oximetry (%) 96 11/21/18 09:17 Findings/Remarks: Patient is a 68 y/o female with past medical history of Afib on aspirin and toprol, depression, chronic alcoholism. Patient states that since her son one week ago she has had increase in alcohol consumption. Patient states she is also having poor appetite with decreased fluid intake. Patient states she called EMS for intractable nausea with lower abdominal cramping. Constitutional: Yes: No Distress, Calm Eyes: Yes: Conjunctiva Clear HENT: Yes: Atraumatic Cardiovascular: Yes: Regular Rate and Rhythm Respiratory: Yes: Regular, Cough, Diminished, On Nasal O2 Gastrointestinal: Yes: Normal Bowel Sounds, Soft Musculoskeletal: Yes: Muscle Weakness Extremities: Yes: WNL Edema: No Neurological: Yes: Alert, Oriented Psychiatric: Yes: Alert, Oriented Labs: CBC, BMP 11/21/18 05:00 11/21/18 05:00 Microbiology 11/11/18 19:00 Blood - Peripheral Venous Blood Culture - Final NO GROWTH AFTER 5 DAYS INCUBATION 11/11/18 17:05 Blood - Peripheral Venous Blood Culture - Final NO GROWTH AFTER 5 DAYS INCUBATION 11/13/18 18:40 Sputum - Expectorated Gram Stain - Final 11/13/18 18:40 Sputum - Expectorated Sputum Culture - Final Yeast Like Organism 11/11/18 16:00 Urine - Urine Clean Catch Urine Culture - Final Lactobacillus Species 11/12/18 16:23 Urine For Antigen Detection Legionella Antigen - Final 11/12/18 16:23 Urine For Antigen Detection Streptococcus pneumoniae Antigen (M - Final Discharge Summary Reason For Visit: ALCOHOL DEPEN,ATRIAL FIBRILALTION,RHABDOMYOLYSIS Current Active Problems Alcohol intoxication (Acute) Alcoholic fatty liver (Acute) Anxiety and depression (Acute) Atrial fibrillation (Acute) CHF (congestive heart failure) (Acute) CKD (chronic kidney disease) (Acute) Dermatitis (Acute) Hepatic encephalopathy (Acute) Pneumonia (Acute) Rhabdomyolysis (Acute) SOB (shortness of breath) (Acute) SOB (shortness of breath) on exertion (Acute) Hospital Course: see progress notes Laboratory Tests 11/05/18 11/05/18 11/05/18 07:35 07:45 07:45 WBC Cancelled Corrected WBC (auto) Cancelled RBC Cancelled Hgb Cancelled Hct Cancelled MCV Cancelled MCH Cancelled MCHC Cancelled RDW Cancelled Plt Count Cancelled MPV Cancelled Absolute Neuts (auto) Cancelled Neutrophils % Cancelled Neutrophils % (Manual) Band Neutrophils % Lymphocytes % Cancelled Lymphocytes % (Manual) Monocytes % Cancelled Monocytes % (Manual) Eosinophils % Cancelled Eosinophils % (Manual) Basophils % Cancelled Basophils % (Manual) Myelocytes % (Man) Promyelocytes % (Man) Blast Cells % (Manual) Nucleated RBC % Cancelled Metamyelocytes Hypochromia Platelet Estimate Cancelled Platelet Comment Cancelled Polychromasia Poikilocytosis Anisocytosis Microcytosis Macrocytosis Ovalocytes PT with INR 13.40 H INR 1.13 H Sodium 134 L Potassium 3.8 Chloride 104 Carbon Dioxide 15 L Anion Gap 16 BUN 23 H Creatinine 1.4 H Est GFR (CKD-EPI)AfAm 44.95 Est GFR (CKD-EPI)NonAf 38.78 POC Glucometer Random Glucose 88 Calcium 7.4 L Phosphorus Magnesium Total Bilirubin 1.0 AST 107 H ALT 68 H Alkaline Phosphatase 90 Creatine Kinase 1628 H Creatine Kinase Index 1.3 CK-MB (CK-2) 21.6 H Troponin I < 0.02 B-Natriuretic Peptide Total Protein 6.4 Albumin 3.5 TSH Urine Color Urine Appearance Urine pH Ur Specific [place] Urine Protein Urine Glucose (UA) Urine Ketones Urine Blood Urine Nitrite Urine Bilirubin Urine Urobilinogen Ur Leukocyte Esterase Urine WBC (Auto) Urine RBC (Auto) Urine Casts (Auto) U Epithel Cells (Auto) Urine Bacteria (Auto) Alcohol, Quantitative 262.3 H 11/05/18 11/05/18 11/05/18 09:02 09:12 17:30 WBC 8.3 Corrected WBC (auto) RBC 3.91 Hgb 11.1 Hct 34.5 MCV 88.2 MCH 28.3 MCHC 32.1 RDW 16.3 H Plt Count 158 MPV 9.6 Absolute Neuts (auto) 6.0 Neutrophils % 71.8 Neutrophils % (Manual) Band Neutrophils % Lymphocytes % 19.9 Lymphocytes % (Manual) Monocytes % 7.6 Monocytes % (Manual) Eosinophils % 0.2 Eosinophils % (Manual) Basophils % 0.5 Basophils % (Manual) Myelocytes % (Man) Promyelocytes % (Man) Blast Cells % (Manual) Nucleated RBC % 0 Metamyelocytes Hypochromia Platelet Estimate Platelet Comment Polychromasia Poikilocytosis Anisocytosis Microcytosis Macrocytosis Ovalocytes PT with INR INR Sodium Potassium Chloride Carbon Dioxide Anion Gap BUN Creatinine Est GFR (CKD-EPI)AfAm Est GFR (CKD-EPI)NonAf POC Glucometer 94 Random Glucose Calcium Phosphorus Magnesium Total Bilirubin AST ALT Alkaline Phosphatase Creatine Kinase Creatine Kinase Index CK-MB (CK-2) Troponin I B-Natriuretic Peptide Total Protein Albumin TSH Urine Color Yellow Urine Appearance Cloudy Urine pH 5.0 Ur Specific [place] 1.007 L Urine Protein 2+ H Urine Glucose (UA) Negative Urine Ketones Negative Urine Blood 2+ H Urine Nitrite Negative Urine Bilirubin Negative Urine Urobilinogen 0.2 Ur Leukocyte Esterase 1+ H Urine WBC (Auto) 3-5 Urine RBC (Auto) 5-10 Urine Casts (Auto) None seen U Epithel Cells (Auto) 3+ Urine Bacteria (Auto) 3+ Alcohol, Quantitative 11/05/18 11/06/18 11/06/18 20:10 06:23 06:23 WBC 7.8 Corrected WBC (auto) RBC 3.82 Hgb 10.8 Hct 33.7 MCV 88.2 MCH 28.4 MCHC 32.2 RDW 16.3 H Plt Count 133 L MPV 10.5 Absolute Neuts (auto) 6.0 Neutrophils % 77.6 Neutrophils % (Manual) Band Neutrophils % Lymphocytes % 13.3 D Lymphocytes % (Manual) Monocytes % 8.8 Monocytes % (Manual) Eosinophils % 0.0 D Eosinophils % (Manual) Basophils % 0.3 Basophils % (Manual) Myelocytes % (Man) Promyelocytes % (Man) Blast Cells % (Manual) Nucleated RBC % 0 Metamyelocytes Hypochromia Platelet Estimate Platelet Comment Polychromasia Poikilocytosis Anisocytosis Microcytosis Macrocytosis Ovalocytes PT with INR INR Sodium 139 Potassium 4.0 Chloride 107 Carbon Dioxide 15 L Anion Gap 17 H BUN 26 H Creatinine 1.4 H Est GFR (CKD-EPI)AfAm 44.95 Est GFR (CKD-EPI)NonAf 38.78 POC Glucometer Random Glucose 86 Calcium 7.8 L Phosphorus 3.3 Magnesium 1.4 L Total Bilirubin 2.0 H AST 70 H ALT 64 H Alkaline Phosphatase 91 Creatine Kinase Creatine Kinase Index CK-MB (CK-2) Troponin I < 0.02 < 0.02 B-Natriuretic Peptide 13355.8 H Total Protein 6.2 L Albumin 3.4 TSH 4.99 H Urine Color Urine Appearance Urine pH Ur Specific [place] Urine Protein Urine Glucose (UA) Urine Ketones Urine Blood Urine Nitrite Urine Bilirubin Urine Urobilinogen Ur Leukocyte Esterase Urine WBC (Auto) Urine RBC (Auto) Urine Casts (Auto) U Epithel Cells (Auto) Urine Bacteria (Auto) Alcohol, Quantitative 11/06/18 11/06/18 11/07/18 06:23 06:23 05:45 WBC Corrected WBC (auto) RBC Hgb Hct MCV MCH MCHC RDW Plt Count MPV Absolute Neuts (auto) Neutrophils % Neutrophils % (Manual) Band Neutrophils % Lymphocytes % Lymphocytes % (Manual) Monocytes % Monocytes % (Manual) Eosinophils % Eosinophils % (Manual) Basophils % Basophils % (Manual) Myelocytes % (Man) Promyelocytes % (Man) Blast Cells % (Manual) Nucleated RBC % Metamyelocytes Hypochromia Platelet Estimate Platelet Comment Polychromasia Poikilocytosis Anisocytosis Microcytosis Macrocytosis Ovalocytes PT with INR INR Sodium Potassium Chloride Carbon Dioxide Anion Gap BUN Creatinine Est GFR (CKD-EPI)AfAm Est GFR (CKD-EPI)NonAf POC Glucometer Random Glucose Calcium Phosphorus Magnesium Total Bilirubin AST ALT Alkaline Phosphatase Creatine Kinase 1230 H 454 H Creatine Kinase Index 1.0 1.0 CK-MB (CK-2) 12.4 H No Result Required. 4.7 H Troponin I B-Natriuretic Peptide Total Protein Albumin TSH Urine Color Urine Appearance Urine pH Ur Specific [place] Urine Protein Urine Glucose (UA) Urine Ketones Urine Blood Urine Nitrite Urine Bilirubin Urine Urobilinogen Ur Leukocyte Esterase Urine WBC (Auto) Urine RBC (Auto) Urine Casts (Auto) U Epithel Cells (Auto) Urine Bacteria (Auto) Alcohol, Quantitative 11/08/18 11/09/18 11/09/18 06:36 06:09 06:09 WBC 5.9 Corrected WBC (auto) RBC 3.45 L Hgb 9.9 L Hct 30.4 L MCV 88.2 MCH 28.7 MCHC 32.5 RDW 15.8 H Plt Count 100 L D MPV 11.0 Absolute Neuts (auto) Neutrophils % Neutrophils % (Manual) Band Neutrophils % Lymphocytes % Lymphocytes % (Manual) Monocytes % Monocytes % (Manual) Eosinophils % Eosinophils % (Manual) Basophils % Basophils % (Manual) Myelocytes % (Man) Promyelocytes % (Man) Blast Cells % (Manual) Nucleated RBC % Metamyelocytes Hypochromia Platelet Estimate Platelet Comment Polychromasia Poikilocytosis Anisocytosis Microcytosis Macrocytosis Ovalocytes PT with INR INR Sodium 142 141 Potassium 3.4 L 3.7 Chloride 108 H 108 H Carbon Dioxide 27 26 Anion Gap 7 L 7 L BUN 13 14.7 Creatinine 1.0 0.9 Est GFR (CKD-EPI)AfAm 67.51 76.68 Est GFR (CKD-EPI)NonAf 58.25 66.16 POC Glucometer Random Glucose 134 H 106 Calcium 8.0 L 8.2 L Phosphorus Magnesium 1.4 L 2.0 Total Bilirubin 1.1 H 1.0 AST 32 28 ALT 47 41 Alkaline Phosphatase 95 93 Creatine Kinase 204 H Creatine Kinase Index 0.9 CK-MB (CK-2) 2.0 Troponin I B-Natriuretic Peptide Total Protein 5.9 L 5.5 L Albumin 3.0 L 2.8 L TSH Urine Color Urine Appearance Urine pH Ur Specific [place] Urine Protein Urine Glucose (UA) Urine Ketones Urine Blood Urine Nitrite Urine Bilirubin Urine Urobilinogen Ur Leukocyte Esterase Urine WBC (Auto) Urine RBC (Auto) Urine Casts (Auto) U Epithel Cells (Auto) Urine Bacteria (Auto) Alcohol, Quantitative 11/12/18 11/12/18 11/13/18 05:20 05:20 06:38 WBC 6.6 4.3 Corrected WBC (auto) RBC 3.58 L 2.65 L Hgb 10.4 L 7.5 L Hct 31.9 L 23.7 L D MCV 89.1 89.5 MCH 29.2 28.3 MCHC 32.7 31.6 L RDW 16.4 H 16.3 H Plt Count 109 L 96 L MPV 11.8 H 10.9 Absolute Neuts (auto) Neutrophils % Neutrophils % (Manual) Band Neutrophils % Lymphocytes % Lymphocytes % (Manual) Monocytes % Monocytes % (Manual) Eosinophils % Eosinophils % (Manual) Basophils % Basophils % (Manual) Myelocytes % (Man) Promyelocytes % (Man) Blast Cells % (Manual) Nucleated RBC % Metamyelocytes Hypochromia Platelet Estimate Platelet Comment Polychromasia Poikilocytosis Anisocytosis Microcytosis Macrocytosis Ovalocytes PT with INR INR Sodium 138 Potassium 3.6 Chloride 101 Carbon Dioxide 29 Anion Gap 8 BUN 11.2 Creatinine 1.0 Est GFR (CKD-EPI)AfAm 67.51 Est GFR (CKD-EPI)NonAf 58.25 POC Glucometer Random Glucose 130 H Calcium 8.8 Phosphorus Magnesium Total Bilirubin 1.0 AST 22 ALT 42 Alkaline Phosphatase 171 H Creatine Kinase Creatine Kinase Index CK-MB (CK-2) Troponin I B-Natriuretic Peptide 87169.3 H Total Protein 6.3 L Albumin 3.0 L TSH Urine Color Urine Appearance Urine pH Ur Specific [place] Urine Protein Urine Glucose (UA) Urine Ketones Urine Blood Urine Nitrite Urine Bilirubin Urine Urobilinogen Ur Leukocyte Esterase Urine WBC (Auto) Urine RBC (Auto) Urine Casts (Auto) U Epithel Cells (Auto) Urine Bacteria (Auto) Alcohol, Quantitative 11/13/18 11/13/18 11/14/18 06:38 12:27 07:25 WBC 6.1 Corrected WBC (auto) RBC 4.00 Hgb 11.5 Hct 35.6 D MCV 89.0 MCH 28.6 MCHC 32.2 RDW 16.9 H Plt Count 138 D MPV 11.1 Absolute Neuts (auto) 4.5 Neutrophils % 74.8 Neutrophils % (Manual) Band Neutrophils % Lymphocytes % 10.1 D Lymphocytes % (Manual) Monocytes % 13.5 H Monocytes % (Manual) Eosinophils % 1.3 D Eosinophils % (Manual) Basophils % 0.3 Basophils % (Manual) Myelocytes % (Man) Promyelocytes % (Man) Blast Cells % (Manual) Nucleated RBC % 0 Metamyelocytes Hypochromia Platelet Estimate Platelet Comment Polychromasia Poikilocytosis Anisocytosis Microcytosis Macrocytosis Ovalocytes PT with INR INR Sodium 139 141 Potassium 3.7 3.9 Chloride 103 102 Carbon Dioxide 30 30 Anion Gap 5 L 9 BUN 11.7 11.3 Creatinine 0.9 0.9 Est GFR (CKD-EPI)AfAm 76.68 76.68 Est GFR (CKD-EPI)NonAf 66.16 66.16 POC Glucometer Random Glucose 108 H 99 Calcium 8.4 L 8.6 Phosphorus Magnesium Total Bilirubin 0.8 0.8 AST 18 19 ALT 31 30 Alkaline Phosphatase 151 H 140 H Creatine Kinase Creatine Kinase Index CK-MB (CK-2) Troponin I B-Natriuretic Peptide Total Protein 5.8 L 6.0 L Albumin 2.6 L 2.7 L TSH Urine Color Urine Appearance Urine pH Ur Specific [place] Urine Protein Urine Glucose (UA) Urine Ketones Urine Blood Urine Nitrite Urine Bilirubin Urine Urobilinogen Ur Leukocyte Esterase Urine WBC (Auto) Urine RBC (Auto) Urine Casts (Auto) U Epithel Cells (Auto) Urine Bacteria (Auto) Alcohol, Quantitative 11/14/18 11/15/18 11/16/18 10:24 18:15 06:15 WBC 5.4 4.9 Corrected WBC (auto) RBC 3.76 3.59 L Hgb 10.6 L 10.2 L Hct 32.9 31.2 L MCV 87.4 86.8 MCH 28.2 28.5 MCHC 32.3 32.9 RDW 16.0 H 16.5 H Plt Count 163 162 MPV 10.6 10.2 Absolute Neuts (auto) 3.3 Neutrophils % 68.5 Neutrophils % (Manual) 72.0 Band Neutrophils % 1.0 Lymphocytes % 10.3 Lymphocytes % (Manual) 10.0 Monocytes % 18.8 H Monocytes % (Manual) 14 H Eosinophils % 1.7 Eosinophils % (Manual) 1.0 Basophils % 0.7 Basophils % (Manual) 1.0 Myelocytes % (Man) 0 Promyelocytes % (Man) 0 Blast Cells % (Manual) 0 Nucleated RBC % 0 Metamyelocytes 0 Hypochromia 0 Platelet Estimate Adequate Platelet Comment Polychromasia 0 Poikilocytosis 1+ Anisocytosis 0 Microcytosis 0 Macrocytosis 0 Ovalocytes 1+ PT with INR INR Sodium Potassium Chloride Carbon Dioxide Anion Gap BUN Creatinine Est GFR (CKD-EPI)AfAm Est GFR (CKD-EPI)NonAf POC Glucometer Random Glucose Calcium Phosphorus Magnesium Total Bilirubin AST ALT Alkaline Phosphatase Creatine Kinase Creatine Kinase Index CK-MB (CK-2) Troponin I B-Natriuretic Peptide 40088.0 H Total Protein Albumin TSH Urine Color Urine Appearance Urine pH Ur Specific [place] Urine Protein Urine Glucose (UA) Urine Ketones Urine Blood Urine Nitrite Urine Bilirubin Urine Urobilinogen Ur Leukocyte Esterase Urine WBC (Auto) Urine RBC (Auto) Urine Casts (Auto) U Epithel Cells (Auto) Urine Bacteria (Auto) Alcohol, Quantitative 06/15/19 06/15/19 06/15/19 06:15 06:15 15:35 WBC Corrected WBC (auto) RBC Hgb Hct MCV MCH MCHC RDW Plt Count MPV Absolute Neuts (auto) Neutrophils % Neutrophils % (Manual) Band Neutrophils % Lymphocytes % Lymphocytes % (Manual) Monocytes % Monocytes % (Manual) Eosinophils % Eosinophils % (Manual) Basophils % Basophils % (Manual) Myelocytes % (Man) Promyelocytes % (Man) Blast Cells % (Manual) Nucleated RBC % Metamyelocytes Hypochromia Platelet Estimate Platelet Comment Polychromasia Poikilocytosis Anisocytosis Microcytosis Macrocytosis Ovalocytes PT with INR INR Sodium 137 Potassium 3.7 Chloride 98 Carbon Dioxide 34 H Anion Gap 4 L BUN 12.8 Creatinine 1.1 Est GFR (CKD-EPI)AfAm 60.16 Est GFR (CKD-EPI)NonAf 51.91 POC Glucometer Random Glucose 160 H Calcium 8.1 L Phosphorus Magnesium Total Bilirubin 0.8 AST 15 ALT 25 Alkaline Phosphatase 138 H Creatine Kinase 32 Creatine Kinase Index CK-MB (CK-2) Troponin I < 0.02 B-Natriuretic Peptide 70706.8 H Total Protein 6.1 L Albumin 2.6 L TSH Urine Color Urine Appearance Urine pH Ur Specific [place] Urine Protein Urine Glucose (UA) Urine Ketones Urine Blood Urine Nitrite Urine Bilirubin Urine Urobilinogen Ur Leukocyte Esterase Urine WBC (Auto) Urine RBC (Auto) Urine Casts (Auto) U Epithel Cells (Auto) Urine Bacteria (Auto) Alcohol, Quantitative 11/18/18 11/18/18 11/19/18 05:25 05:25 05:20 WBC 6.0 Corrected WBC (auto) RBC 4.02 Hgb 11.2 Hct 34.7 MCV 86.5 MCH 27.8 MCHC 32.2 RDW 16.3 H Plt Count 205 D MPV 10.0 Absolute Neuts (auto) Neutrophils % Neutrophils % (Manual) Band Neutrophils % Lymphocytes % Lymphocytes % (Manual) Monocytes % Monocytes % (Manual) Eosinophils % Eosinophils % (Manual) Basophils % Basophils % (Manual) Myelocytes % (Man) Promyelocytes % (Man) Blast Cells % (Manual) Nucleated RBC % Metamyelocytes Hypochromia Platelet Estimate Platelet Comment Polychromasia Poikilocytosis Anisocytosis Microcytosis Macrocytosis Ovalocytes PT with INR INR Sodium 136 135 L Potassium 3.7 4.5 Chloride 94 L 92 L Carbon Dioxide 36 H 37 H Anion Gap 6 L 6 L BUN 11.5 16.9 Creatinine 0.9 1.0 Est GFR (CKD-EPI)AfAm 76.68 67.51 Est GFR (CKD-EPI)NonAf 66.16 58.25 POC Glucometer Random Glucose 109 H 131 H Calcium 8.8 9.8 Phosphorus Magnesium 1.7 L 1.7 L Total Bilirubin 0.8 AST 42 H ALT 32 Alkaline Phosphatase 134 H Creatine Kinase Creatine Kinase Index CK-MB (CK-2) Troponin I B-Natriuretic Peptide Total Protein 6.9 Albumin 2.9 L TSH Urine Color Urine Appearance Urine pH Ur Specific [place] Urine Protein Urine Glucose (UA) Urine Ketones Urine Blood Urine Nitrite Urine Bilirubin Urine Urobilinogen Ur Leukocyte Esterase Urine WBC (Auto) Urine RBC (Auto) Urine Casts (Auto) U Epithel Cells (Auto) Urine Bacteria (Auto) Alcohol, Quantitative 11/20/18 11/20/18 11/21/18 05:05 05:05 05:00 WBC 7.9 8.7 Corrected WBC (auto) RBC 4.39 4.59 Hgb 12.3 12.6 Hct 37.6 38.9 MCV 85.5 84.8 MCH 28.0 27.4 MCHC 32.8 32.3 RDW 16.6 H 16.5 H Plt Count 267 D 276 MPV 10.0 10.1 Absolute Neuts (auto) Neutrophils % Neutrophils % (Manual) Band Neutrophils % Lymphocytes % Lymphocytes % (Manual) Monocytes % Monocytes % (Manual) Eosinophils % Eosinophils % (Manual) Basophils % Basophils % (Manual) Myelocytes % (Man) Promyelocytes % (Man) Blast Cells % (Manual) Nucleated RBC % Metamyelocytes Hypochromia Platelet Estimate Platelet Comment Polychromasia Poikilocytosis Anisocytosis Microcytosis Macrocytosis Ovalocytes PT with INR INR Sodium 135 L Potassium 4.0 Chloride 92 L Carbon Dioxide 38 H Anion Gap 5 L BUN 15.9 Creatinine 1.0 Est GFR (CKD-EPI)AfAm 67.51 Est GFR (CKD-EPI)NonAf 58.25 POC Glucometer Random Glucose 134 H Calcium 9.8 Phosphorus Magnesium Total Bilirubin 0.6 AST 32 ALT 36 Alkaline Phosphatase 129 H Creatine Kinase Creatine Kinase Index CK-MB (CK-2) Troponin I B-Natriuretic Peptide Total Protein 6.7 Albumin 3.0 L TSH Urine Color Urine Appearance Urine pH Ur Specific [place] Urine Protein Urine Glucose (UA) Urine Ketones Urine Blood Urine Nitrite Urine Bilirubin Urine Urobilinogen Ur Leukocyte Esterase Urine WBC (Auto) Urine RBC (Auto) Urine Casts (Auto) U Epithel Cells (Auto) Urine Bacteria (Auto) Alcohol, Quantitative 11/21/18 05:00 WBC Corrected WBC (auto) RBC Hgb Hct MCV MCH MCHC RDW Plt Count MPV Absolute Neuts (auto) Neutrophils % Neutrophils % (Manual) Band Neutrophils % Lymphocytes % Lymphocytes % (Manual) Monocytes % Monocytes % (Manual) Eosinophils % Eosinophils % (Manual) Basophils % Basophils % (Manual) Myelocytes % (Man) Promyelocytes % (Man) Blast Cells % (Manual) Nucleated RBC % Metamyelocytes Hypochromia Platelet Estimate Platelet Comment Polychromasia Poikilocytosis Anisocytosis Microcytosis Macrocytosis Ovalocytes PT with INR INR Sodium 133 L Potassium 3.8 Chloride 92 L Carbon Dioxide 38 H Anion Gap 4 L BUN 21.4 H Creatinine 1.1 Est GFR (CKD-EPI)AfAm 60.16 Est GFR (CKD-EPI)NonAf 51.91 POC Glucometer Random Glucose 140 H Calcium 9.9 Phosphorus Magnesium Total Bilirubin 0.6 AST 35 ALT 44 Alkaline Phosphatase 140 H Creatine Kinase Creatine Kinase Index CK-MB (CK-2) Troponin I B-Natriuretic Peptide Total Protein 7.0 Albumin 3.0 L TSH Urine Color Urine Appearance Urine pH Ur Specific [place] Urine Protein Urine Glucose (UA) Urine Ketones Urine Blood Urine Nitrite Urine Bilirubin Urine Urobilinogen Ur Leukocyte Esterase Urine WBC (Auto) Urine RBC (Auto) Urine Casts (Auto) U Epithel Cells (Auto) Urine Bacteria (Auto) Alcohol, Quantitative Active Medications Generic Name Dose Route Start Last Admin Trade Name Freq PRN Reason Stop Dose Admin Acetaminophen 650 mg 11/16/18 18:05 11/21/18 04:20 Tylenol - PO 650 mg Q6H PRN Administration PAIN LEVEL 1-5 Albuterol Sulfate 1 amp 11/16/18 18:05 Ventolin 0.083% Nebulizer Soln - NEB RQID PRN SHORT OF BREATH/WHEEZING Aspirin 81 mg 11/17/18 10:00 11/21/18 09:02 Asa - PO 81 mg DAILY [facility] Administration Budesonide/Formoterol Fumarate 2 puff 11/21/18 12:30 Symbicort 160/4.5mcg - IH BID [facility] Calcium Carbonate/Cholecalciferol 2 tab 11/17/18 10:00 11/21/18 09:05 Os-Hardik 500+D - PO 2 tab DAILY [facility] Administration Cyanocobalamin 1,000 mcg 11/17/18 10:00 11/21/18 09:03 Vitamin B12 - PO 1,000 mcg DAILY [facility] Administration Digoxin 0.125 mg 11/17/18 10:00 11/21/18 09:04 Lanoxin - PO 0.125 mg DAILY [facility] Administration Folic Acid 1 mg 11/17/18 10:00 11/21/18 09:05 Folic Acid - PO 1 mg DAILY [facility] Administration Furosemide 40 mg 11/21/18 14:00 Lasix - PO BID@0600,1400 [facility] Guaifenesin 10 ml 11/16/18 18:05 11/21/18 09:08 Robitussin Dm - PO 10 ml Q4H PRN Administration COUGH Ketoconazole 1 applic 11/17/18 10:00 11/21/18 09:12 Nizoral 2% Cream - TP 1 applic DAILY [facility] Administration Lactulose 20 gm 11/16/18 22:00 11/21/18 10:53 Cephulac (Oral Use) PO Not Given BID [facility] Lidocaine 1 patch 11/17/18 10:00 11/21/18 09:09 Lidoderm Patch - TP Not Given DAILY [facility] Lisinopril 2.5 mg 11/17/18 10:00 11/21/18 09:02 Prinivil PO 2.5 mg DAILY [facility] Administration Lorazepam 1 mg 11/17/18 21:00 11/21/18 09:02 Ativan - PO 1 mg Q12H [facility] Administration Magnesium Oxide 400 mg 11/16/18 22:00 11/21/18 09:02 Mag-Ox - PO 400 mg BID [facility] Administration Metoprolol Succinate 50 mg/ 150 mg 11/17/18 10:00 11/21/18 09:04 Metoprolol Succinate 100 mg PO 150 mg BID [facility] Administration Miscellaneous 1 each 11/16/18 22:00 11/20/18 21:40 Lidoderm Patch Removal MC 1 each DAILY@2200 [facility] Administration Multivitamins/Minerals/Vitamin C 1 tab 11/17/18 10:00 11/21/18 09:01 Tab-A-Vit - PO 1 tab DAILY [facility] Administration Pantoprazole Sodium 40 mg 11/17/18 10:00 11/21/18 09:05 Protonix - PO 40 mg DAILY [facility] Administration Quetiapine Fumarate 25 mg 11/16/18 22:00 11/21/18 09:05 Seroquel - PO Not Given BID [facility] Rosuvastatin Calcium 10 mg 11/16/18 22:00 11/20/18 21:40 Crestor - PO 10 mg HS [facility] Administration Sertraline HCl 25 mg 11/17/18 10:00 11/21/18 09:05 Zoloft - PO Not Given DAILY [facility] Thiamine HCl 100 mg 11/17/18 10:00 11/21/18 09:06 Vitamin B1 - PO 100 mg DAILY [facility] Administration Triamcinolone Acetonide 1 applic 11/16/18 22:00 11/21/18 09:09 Aristocort 0.1% Ointment - TP 1 applic BID [facility] Administration Microbiology 11/11/18 19:00 Blood - Peripheral Venous Blood Culture - Final NO GROWTH AFTER 5 DAYS INCUBATION 11/11/18 17:05 Blood - Peripheral Venous Blood Culture - Final NO GROWTH AFTER 5 DAYS INCUBATION 11/13/18 18:40 Sputum - Expectorated Gram Stain - Final 11/13/18 18:40 Sputum - Expectorated Sputum Culture - Final Yeast Like Organism 11/11/18 16:00 Urine - Urine Clean Catch Urine Culture - Final Lactobacillus Species 11/12/18 16:23 Urine For Antigen Detection Legionella Antigen - Final 11/12/18 16:23 Urine For Antigen Detection Streptococcus pneumoniae Antigen (M - Final Condition: Stable - Instructions Diet, Activity, Other Instructions: FU with PMD in one week return to ER if develop SOB, respiratory distress, chest pain take medication as prescribed Referrals: Shan Nino MD [Primary Care Provider] - Jakub Jerome MD [Staff Physician] - Evan Gardner MD [Staff Physician] - David Dumont MD [Staff Physician] - [facility]position[facility] - Home Medications Comprehensive Discharge Medication List: Acetaminophen (Tylenol -) 650 mg PO Q6H PRN PRN Reason: PAIN LEVEL 1-5 Last Admin: 11/18/18 00:04 Dose: 650 mg Albuterol Sulfate (Ventolin 0.083% Nebulizer Soln -) 1 amp NEB RQID PRN PRN Reason: SHORT OF BREATH/WHEEZING Aspirin (Asa -) 81 mg PO DAILY [facility] Last Admin: 11/19/18 09:15 Dose: 81 mg Calcium Carbonate/Cholecalciferol (Os-Hardik 500+D -) 2 tab PO DAILY [facility] Last Admin: 11/19/18 09:15 Dose: 2 tab Cefuroxime Axetil (Ceftin -) 500 mg PO BID [facility] Last Admin: 11/19/18 09:16 Dose: 500 mg Cyanocobalamin (Vitamin B12 -) 1,000 mcg PO DAILY [facility] Last Admin: 11/19/18 09:15 Dose: 1,000 mcg Digoxin (Lanoxin -) 0.125 mg PO DAILY [facility] Last Admin: 11/19/18 09:13 Dose: 0.125 mg Folic Acid (Folic Acid -) 1 mg PO DAILY [facility] Last Admin: 11/19/18 09:34 Dose: 1 mg Furosemide (Lasix Injection -) 40 mg IVPUSH DAILY [facility] Last Admin: 11/19/18 09:13 Dose: 40 mg Guaifenesin (Robitussin Dm -) 10 ml PO Q4H PRN PRN Reason: COUGH Last Admin: 11/19/18 18:10 Dose: 10 ml Ketoconazole (Nizoral 2% Cream -) 1 applic TP DAILY [facility] Last Admin: 11/19/18 09:29 Dose: 1 applic Lactulose (Cephulac (Oral Use)) 20 gm PO BID [facility] Last Admin: 11/19/18 09:13 Dose: 20 gm Lidocaine (Lidoderm Patch -) 1 patch TP DAILY [facility] Last Admin: 11/19/18 09:34 Dose: 1 patch Lisinopril (Prinivil) 2.5 mg PO DAILY [facility] Last Admin: 11/19/18 09:13 Dose: 2.5 mg Lorazepam (Ativan -) 1 mg PO Q12H [facility] Last Admin: 11/19/18 09:15 Dose: 1 mg Magnesium Oxide (Mag-Ox -) 400 mg PO BID [facility] Last Admin: 11/19/18 09:17 Dose: 400 mg Metoprolol Succinate 50 mg/ (Metoprolol Succinate 100 mg) 150 mg PO BID [facility] Last Admin: 11/19/18 09:13 Dose: 150 mg--HOLD IF HR <60 BPM Miscellaneous (Lidoderm Patch Removal) 1 each DAILY@2200 [facility] Last Admin: 11/18/18 21:57 Dose: 1 each Multivitamins/Minerals/Vitamin C (Tab-A-Vit -) 1 tab PO DAILY [facility] Last Admin: 11/19/18 09:15 Dose: 1 tab Pantoprazole Sodium (Protonix -) 40 mg PO DAILY [facility] Last Admin: 11/19/18 09:16 Dose: 40 mg Quetiapine Fumarate (Seroquel -) 25 mg PO BID [facility] Last Admin: 11/19/18 09:17 Dose: Not Given Rosuvastatin Calcium (Crestor -) 10 mg PO HS [facility] Last Admin: 11/18/18 21:51 Dose: 10 mg Sertraline HCl (Zoloft -) 25 mg PO DAILY [facility] Last Admin: 11/19/18 09:18 Dose: Not Given Thiamine HCl (Vitamin B1 -) 100 mg PO DAILY [facility] Last Admin: 11/19/18 09:15 Dose: 100 mg Triamcinolone Acetonide (Aristocort 0.1% Ointment -) 1 applic TP BID [facility] Last Admin: 11/19/18 09:29 Dose: 1 applic
[2018-11-21] MEDS: BUDESONIDE/FORMETEROL FUMARATE 160/4.5 mcg INHALER IH SCH ×2 (14:03→21:35)
[2018-11-21] MEDS: LIDOCAINE PATCH REMOVAL MC SCH (21:34)
[2018-11-21] MEDS: ROSUVASTATIN CA 10 MG TABLET (FP) PO SCH (21:34)
[2018-11-22] MEDS: guaiFENesin/D-METHORPHAN HB 10 ML UNIT-DOSE CUPS PO PRN ×2 (01:59→09:41)
[2018-11-22] MEDS: FUROSEMIDE 40 MG TABLET (FP) PO SCH (06:04)
[2018-11-22 06:15] LABS: HEMOGLOBIN 13.3 GM/dL (10.7-15.3); MCH 27.8 pg (25.7-33.7); MCHC 32.4 g/dl (32.0-36.0); MEAN CELL VOLUME 85.6 fl (80-96); MEAN PLT VOLUME 10.3 fl (7.5-11.1); PLATELET COUNT 295 K/MM3 (134-434); RDW 16.3 % (11.6-15.6); WHITE BLOOD COUNT 9.1 K/mm3 (4.0-10.0)
[2018-11-22 06:48] LABS: ALBUMIN 3.2 g/dl (3.4-5.0); BILIRUBIN,TOTAL 0.6 mg/dL (0.2-1); CALCIUM 10.1 mg/dL (8.5-10.1); CREATININE 1.1 mg/dL (0.55-1.3); POTASSIUM 4.2 mmol/L (3.5-5.1); TOT PROT 7.5 g/dl (6.4-8.2)
[2018-11-22] MEDS: DIGOXIN 0.125 MG TABLET (FP) PO SCH (09:39)
[2018-11-22] MEDS: LISINOPRIL 5 MG TABLET (FP) PO SCH (09:39)
[2018-11-22] MEDS: LORazepam 1 MG TABLET PO SCH (09:40)
[2018-11-22] MEDS: MAGNESIUM OXIDE 400 MG TABLET (FP) PO SCH (09:40)
[2018-11-22] MEDS: CYANOCOBALAMIN 1,000 MCG TABLET (FP) PO SCH (09:40)
[2018-11-22] MEDS: PANTOPRAZOLE 40 MG TABLET (FP) PO SCH (09:40)
[2018-11-22] MEDS: ASPIRIN 81 MG CHEWABLE TABLETS PO SCH (09:40)
[2018-11-22] MEDS: FOLIC ACID 1 MG TABLET (FP) PO SCH (09:40)
[2018-11-22] MEDS: MULTIVITAMINS (DAILY MVI) TABLET (FP) PO SCH (09:40)
[2018-11-22] MEDS: TRIAMCINOLONE ACET 0.1% OINT 15 GM TUBE TP SCH (09:41)
[2018-11-22] MEDS: KETOCONAZOLE 2% CREAM - 60GM TUBE TP SCH (09:41)
[2018-11-22] MEDS: LIDOCAINE 5% TOPICAL PATCH TP SCH (09:41)
[2018-11-22] MEDS: LACTULOSE 20 GM/30 ML UDC (FOR ORAL USE ONLY) PO SCH (09:41)
[2018-11-22] MEDS: QUEtiapine FUMARATE 25 MG TABLET (FP) PO SCH (09:42)
[2018-11-22] MEDS: CALCIUM 500MG/VIT-D 200 UNITS COMBO TABLET (FP) PO SCH (09:42)
[2018-11-22] MEDS: THIAMINE HCL 100 MG TABLET (FP) PO SCH (09:42)
[2018-11-22] MEDS: METOPROLOL SUCCINATE PO SCH (09:42)
[2018-11-22] MEDS: SERTRALINE HCL 25 MG TABLET (FP) PO SCH (09:42)
[2018-11-22] MEDS: BUDESONIDE/FORMETEROL FUMARATE 160/4.5 mcg INHALER IH SCH (09:45)
[2018-11-22 09:46] VITALS: PULSE 62
[2018-11-22 09:47] VITALS: BP 120/71; TEMP 97.5
--- NOTE | 2018-11-22 11:11 | PN ---
Progress Note, Physician Chief Complaint: ETOH Abuse Alcoholic Fatty Liver History of Present Illness: Previous notes and events reviewed awake and alert NAD continue with SOB on exertion but feels better with O2 complain of cough patient being discharged to SNF - Current Medication List Current Medications: Active Medications Acetaminophen (Tylenol -) 650 mg PO Q6H PRN PRN Reason: PAIN LEVEL 1-5 Last Admin: 11/21/18 04:20 Dose: 650 mg Albuterol Sulfate (Ventolin 0.083% Nebulizer Soln -) 1 amp NEB RQID PRN PRN Reason: SHORT OF BREATH/WHEEZING Aspirin (Asa -) 81 mg PO DAILY REPLACED BY [facility] Last Admin: 11/22/18 09:40 Dose: 81 mg Budesonide/Formoterol Fumarate (Symbicort 160/4.5mcg -) 2 puff IH BID REPLACED BY [facility] Last Admin: 11/22/18 09:45 Dose: 2 puff Calcium Carbonate/Cholecalciferol (Os-Hardik 500+D -) 2 tab PO DAILY REPLACED BY [facility] Last Admin: 11/22/18 09:42 Dose: 2 tab Cyanocobalamin (Vitamin B12 -) 1,000 mcg PO DAILY REPLACED BY [facility] Last Admin: 11/22/18 09:40 Dose: 1,000 mcg Digoxin (Lanoxin -) 0.125 mg PO DAILY REPLACED BY [facility] Last Admin: 11/22/18 09:39 Dose: 0.125 mg Folic Acid (Folic Acid -) 1 mg PO DAILY REPLACED BY [facility] Last Admin: 11/22/18 09:40 Dose: 1 mg Furosemide (Lasix -) 40 mg PO BID@0600,1400 REPLACED BY [facility] Last Admin: 11/22/18 06:04 Dose: 40 mg Guaifenesin (Robitussin Dm -) 10 ml PO Q4H PRN PRN Reason: COUGH Last Admin: 11/22/18 09:41 Dose: 10 ml Ketoconazole (Nizoral 2% Cream -) 1 applic TP DAILY REPLACED BY [facility] Last Admin: 11/22/18 09:41 Dose: 1 applic Lactulose (Cephulac (Oral Use)) 20 gm PO BID REPLACED BY [facility] Last Admin: 11/22/18 09:41 Dose: 20 gm Lidocaine (Lidoderm Patch -) 1 patch TP DAILY REPLACED BY [facility] Last Admin: 11/22/18 09:41 Dose: Not Given Lisinopril (Prinivil) 2.5 mg PO DAILY REPLACED BY [facility] Last Admin: 11/22/18 09:39 Dose: 2.5 mg Lorazepam (Ativan -) 1 mg PO Q12H REPLACED BY [facility] Last Admin: 11/22/18 09:40 Dose: 1 mg Magnesium Oxide (Mag-Ox -) 400 mg PO BID REPLACED BY [facility] Last Admin: 11/22/18 09:40 Dose: 400 mg Metoprolol Succinate 50 mg/ (Metoprolol Succinate 100 mg) 150 mg PO BID REPLACED BY [facility] Last Admin: 11/22/18 09:42 Dose: Not Given Miscellaneous (Lidoderm Patch Removal) 1 each MC DAILY@2200 REPLACED BY [facility] Last Admin: 11/21/18 21:34 Dose: Not Given Multivitamins/Minerals/Vitamin C (Tab-A-Vit -) 1 tab PO DAILY REPLACED BY [facility] Last Admin: 11/22/18 09:40 Dose: 1 tab Pantoprazole Sodium (Protonix -) 40 mg PO DAILY REPLACED BY [facility] Last Admin: 11/22/18 09:40 Dose: 40 mg Quetiapine Fumarate (Seroquel -) 25 mg PO BID REPLACED BY [facility] Last Admin: 11/22/18 09:42 Dose: Not Given Rosuvastatin Calcium (Crestor -) 10 mg PO HS REPLACED BY [facility] Last Admin: 11/21/18 21:34 Dose: 10 mg Sertraline HCl (Zoloft -) 25 mg PO DAILY REPLACED BY [facility] Last Admin: 11/22/18 09:42 Dose: Not Given Thiamine HCl (Vitamin B1 -) 100 mg PO DAILY REPLACED BY [facility] Last Admin: 11/22/18 09:42 Dose: 100 mg Triamcinolone Acetonide (Aristocort 0.1% Ointment -) 1 applic TP BID REPLACED BY [facility] Last Admin: 11/22/18 09:41 Dose: 1 applic - Objective Vital Signs: Vital Signs Temperature 97.5 F L 11/22/18 09:46 Pulse Rate 62 11/22/18 09:46 Respiratory Rate 18 11/22/18 09:46 Blood Pressure 120/71 11/22/18 09:46 O2 Sat by Pulse Oximetry (%) 95 11/22/18 09:47 Constitutional: Yes: No Distress, Calm Eyes: Yes: Conjunctiva Clear HENT: Yes: Atraumatic Cardiovascular: Yes: Pulse Irregular Respiratory: Yes: Regular, Diminished, On Nasal O2 Gastrointestinal: Yes: Normal Bowel Sounds, Soft Musculoskeletal: Yes: Muscle Weakness Extremities: Yes: WNL Edema: No Integumentary: Yes: Rash (psoriasis) Neurological: Yes: Alert, Oriented Psychiatric: Yes: Alert, Oriented Labs: CBC, BMP 11/22/18 05:05 11/22/18 05:05 INR, PTT INR 1.13 (0.83-1.09) H 11/05/18 07:45 Microbiology 11/11/18 19:00 Blood - Peripheral Venous Blood Culture - Final NO GROWTH AFTER 5 DAYS INCUBATION 11/11/18 17:05 Blood - Peripheral Venous Blood Culture - Final NO GROWTH AFTER 5 DAYS INCUBATION 11/13/18 18:40 Sputum - Expectorated Gram Stain - Final 11/13/18 18:40 Sputum - Expectorated Sputum Culture - Final Yeast Like Organism 11/11/18 16:00 Urine - Urine Clean Catch Urine Culture - Final Lactobacillus Species 11/12/18 16:23 Urine For Antigen Detection Legionella Antigen - Final 11/12/18 16:23 Urine For Antigen Detection Streptococcus pneumoniae Antigen (M - Final Problem List - Problems (1) Atrial fibrillation Assessment/Plan: -cardiology on board -Aspirin and Metoprolol Code(s): I48.91 - UNSPECIFIED ATRIAL FIBRILLATION Qualifiers: Atrial fibrillation type: chronic Qualified Code(s): I48.2 - Chronic atrial fibrillation (2) Rhabdomyolysis Assessment/Plan: -resolved Code(s): M62.82 - RHABDOMYOLYSIS Qualifiers: Rhabdomyolysis type: non-traumatic Qualified Code(s): M62.82 - Rhabdomyolysis (3) Abdominal pain Assessment/Plan: -Zofran prn for nausea -Abdominal US shows fatty infiltration of liver--GI follow up as outpatient Code(s): R10.9 - UNSPECIFIED ABDOMINAL PAIN Qualifiers: Abdominal location: generalized Qualified Code(s): R10.84 - Generalized abdominal pain (4) Alcohol dependence Assessment/Plan: -consult for Dr Bishop -Librglenn taper completed -psych on board -fall precaution -Thiamine, Folic acid, MVI Code(s): F10.20 - ALCOHOL DEPENDENCE, UNCOMPLICATED Qualifiers: Substance use status: unspecified alcohol-induced disorder Qualified Code(s ): F10.29 - Alcohol dependence with unspecified alcohol-induced disorder (5) Depression Assessment/Plan: -psych consult -Zoloft -Seroquel BID -Ativan 1mg po q12h for anxiety Code(s): F32.9 - MAJOR DEPRESSIVE DISORDER, SINGLE EPISODE, UNSPECIFIED (6) HTN (hypertension) Assessment/Plan: -low Na diet Code(s): I10 - ESSENTIAL (PRIMARY) HYPERTENSION (7) SOB (shortness of breath) Assessment/Plan: -CXR shows new bibasilar infiltrates with fluid and atelectasis with congestive changes -Pulm and ID consult -Ceftin -bronchodilator -O2 via NC -keep SpO2 >90% -Urine Legionella neg Code(s): R06.02 - SHORTNESS OF BREATH (8) CHF (congestive heart failure) Assessment/Plan: -Cardiology and Pulm on board -Echo with EF 35-40% -1L fluid restriction -whalen weights -BNP 64751 -Digoxin, Furosemide, Lisinopril, Metoprolol Code(s): I50.9 - HEART FAILURE, UNSPECIFIED Qualifiers: Heart failure type: systolic Assessment/Plan see problem list dvt ppx patient being discharged to SNF today
== END 2018-11-22 13:40 | DRG 896 ==
LOC: JER 06:14 → JERBED 09:50 → J5S 10:45 → J4W 21:24 → UNDODISIN 11-14 18:03 → J6S 11-14 22:37 → J4S 11-16 18:00
PROVIDERS: ADMIT Family Medicine; ATTEND Family Medicine
PROC: HZ2ZZZZ Detoxification Services for Substance Abuse Treatment (ICD-10-PCS; principal; 2018-11-05)
DX: F10.239 Alcohol dependence with withdrawal, unspecified (principal); J18.9 Pneumonia, unspecified organism; I50.21 Acute systolic (congestive) heart failure; M62.82 Rhabdomyolysis; J98.11 Atelectasis; I13.0 Hypertensive heart and chronic kidney disease with heart failure and stage 1 through stage 4 chronic kidney disease, or unspecified chronic kidney disease; I48.2 Chronic atrial fibrillation; E78.5 Hyperlipidemia, unspecified; E86.0 Dehydration; K58.9 Irritable bowel syndrome, unspecified; G47.00 Insomnia, unspecified; K70.0 Alcoholic fatty liver; E11.9 Type 2 diabetes mellitus without complications; K70.10 Alcoholic hepatitis without ascites; R00.0 Tachycardia, unspecified; Y90.8 Blood alcohol level of 240 mg/100 ml or more; R10.84 Generalized abdominal pain; E83.51 Hypocalcemia; K72.90 Hepatic failure, unspecified without coma; E11.22 Type 2 diabetes mellitus with diabetic chronic kidney disease; N18.9 Chronic kidney disease, unspecified; I34.0 Nonrheumatic mitral (valve) insufficiency; L40.9 Psoriasis, unspecified; F41.8 Other specified anxiety disorders; L30.9 Dermatitis, unspecified; R06.02 Shortness of breath
CPT/HCPCS: 36415; 71045-TC-FY; 76700-TC; 76775-TC; 80048; 80053; 80307; 81003; 82550; 82553; 82962; 83735; 83880; 84100; 84436; 84443; 84484; 85025; 85027; 85610; 87040; 87070; 87077; 87086; 87205; 87899; 93005; 93010; 93306-TC; 94640; 97116-GP; 97161-GP; 99285-25; J0131; J7030

== ENCOUNTER 2018-11-26 09:26 | Inpatient (IN) | payer OTHER | END 2018-11-28 16:35 | LOC: J8W 11-27 19:59 → JER 09:26 → JERBED 13:37 ==

== ENCOUNTER 2019-05-26 11:57 | Inpatient (IN) | payer OTHER ==
--- NOTE | 2019-05-26 12:58 | PDOC ---
History of Present Illness - General Chief Complaint: Shortness of Breath Stated Complaint: SENT BY DOCTOR Time Seen by Provider: 05/26/19 12:45 History Source: Patient, Old Records Exam Limitations: No Limitations - History of Present Illness Initial Comments: 05/26/19 12:55 68y F with PMH of AFib (ASA and metoprolol), CHF, HTN, DM, Chronic Alcoholism with Alcoholic hepatitis, Depression, HLD, IBD, Sleep Apnea, Insomnia, and Psoriasis presenting to ED for SOB. She states that for the past week she has been feeling short of breath only with exertion. She also endorses a chest pressure that is constant. She states that she had similar symptoms before but was told it was GERD. She denies cough, leg swelling, recent travel, recent surgeries, fever, chills, abdominal pain, n/v/d. Echo November 2018 showed moderate to severely reduced LVEF and RVEF. PMD: Mica PMH: see hpi Meds: see med rec Allergies: nkda Social: occasional alcohol use Past History - Past Medical History Allergies/Adverse Reactions: Allergies Allergy/AdvReac Type Severity Reaction Status Date / Time No Known Allergies Allergy Verified 05/26/19 12:12 Home Medications: Ambulatory Orders Aspirin [Ecotrin] 81 mg PO HS 05/26/19 Calcium Carbonate/Vitamin D3 [Calcium 500-Vit D3 200 Tablet] 2 tab PO DAILY Cyanocobalamin [Vitamin B12 -] 1,000 mcg PO DAILY 05/26/19 Lactulose (Oral Use) [Cephulac -] 20 gm PO DAILY 05/26/19 Lorazepam [Ativan] 1 mg PO TID PRN 05/26/19 Metoprolol Succinate [Toprol Xl] 3 tab PO DAILY 05/26/19 Metoprolol Tartrate 150 mg PO BID 05/26/19 Mirtazapine 7.5 mg PO HS 05/26/19 Multivitamin [One-Daily Multi-Vitamin] 1 each PO DAILY 05/26/19 Rosuvastatin Calcium [Crestor] 10 mg PO HS 05/26/19 Anemia: No Asthma: No Cancer: No Cardiac Disorders: Yes (A-fib) CVA: No COPD: No CHF: No DVT: No Dementia: No Diabetes: Yes Dialysis: No GI Disorders: Yes (IBS, ulcerative colitis) Disorders: No HTN: Yes Hypercholesterolemia: Yes Kidney Stones: No Liver Disease: No Psychiatric Problems: Yes (depression, insomnia) Seizures: No Thyroid Disease: No Lung CA: No - Surgical History Abdominal Surgery: No Appendectomy: No Cardiac Surgery: No Cholecystectomy: No Lung Surgery: No Neurologic Surgery: No Orthopedic Surgery: No - Immunization History Immunization Up to Date: Yes - Psycho Social/Smoking Cessation Hx Smoking Status: Yes Smoking History: Former smoker Have you smoked in the past 12 months: Yes Number of Cigarettes Smoked Daily: 0 If you are a former smoker, when did you quit?: 40 yrs ago Information on smoking cessation initiated: No Hx Alcohol Use: Yes (Regular) Drug/Substance Use Hx: No Substance Use Type: Alcohol Hx Substance Use Treatment: No Review of Systems - Review of Systems Constitutional: No: Symptoms Reported HEENTM: No: Symptoms Reported Respiratory: Yes: See HPI Cardiac (ROS): Yes: See HPI ABD/GI: No: Symptoms Reported : No: Symptoms Reported Musculoskeletal: No: Symptoms Reported Integumentary: No: Symptoms Reported Neurological: No: Symptoms reported *Physical Exam - Vital Signs Last Vital Signs Temp Pulse Resp BP Pulse Ox 97.6 F 113 H 20 139/102 H 98 05/26/19 12:14 05/26/19 12:14 05/26/19 12:14 05/26/19 12:14 05/26/19 12:14 - Physical Exam General Appearance: Yes: Nourished, Appropriately Dressed. No: Apparent Distress HEENT: positive: EOMI, CHANTEL, Normal ENT Inspection Neck: positive: Trachea midline, Supple Respiratory/Chest: positive: Lungs Clear, Normal Breath Sounds. negative: Crackles, Rales, Rhonchi, Stridor, Wheezing Cardiovascular: positive: Regular Rhythm, Regular Rate, S1, S2. negative: Edema , JVD, Murmur Vascular Pulses: Dorsalis-Pedis (R): 2+, Doralis-Pedis (L): 2+ Gastrointestinal/Abdominal: positive: Normal Bowel Sounds, Soft. negative: Tender Musculoskeletal: negative: CVA Tenderness, Vertebral Tenderness Extremity: positive: Normal Capillary Refill. negative: Pedal Edema, Swelling, Calf Tenderness Integumentary: positive: Normal Color, Dry, Warm. 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 Sent from PMD office for PE rule out vitals: tachycardia, slightly hypertensive. saturating well on RA. ddx: pna, ptx, pe, dissection, chf, gerd, pleurisy, carditis will obtain labs, cardiac labs, ekg, CTA labs show BNP 11k. negative trop. Mg low, will replete 05/27/19 00:36 CTA: no pe. mild bilateral lober lobe interlobular septal thickening which could be vascular congestion. dilated main pulmonary aa, increased from 2.9 to 3.2. enlargement of mediastinal and bilateral hilar lymph nodes. multichamber cardiomegaly. no pericardial effusion. will admit tele for CHF: patient has shortness of breath, has elevated bnp, ct shows congestion and cardiomegaly given Lasix. Discharge - Discharge Information Problems reviewed: Yes Clinical Impression/Diagnosis: CHF (congestive heart failure) Qualifiers: Heart failure type: unspecified Heart failure chronicity: unspecified Qualified Code(s): I50.9 - Heart failure, unspecified Condition: Stable - Admission Yes - Follow up/Referral - Patient Discharge Instructions - Post Discharge Activity
--- NOTE | 2019-05-26 13:05 | PDOC ---
Attending Attestation - Resident Resident Name: Rachel Mcgrath - ED Attending Attestation I have performed the following: I have examined & evaluated the patient, The case was reviewed & discussed with the resident, I agree w/resident's findings & plan, Exceptions are as noted - HPI HPI: 05/26/19 13:02 68y F hx of afib (off a/c), dm,htn, hl, etoh, sleep apnea presents with complaint of sob/green for the past week. Pt also endorses feeling more sob when she is laying down wth decreased excercise tolerance. pt has chronic leg edema , but is not significntly worse than usual. pt denies any fever/chills, cough. denie sany leg swelling, hemoptysis, pleuritic cp, nv, diaphoresis. - Physicial Exam PE: 05/26/19 15:06 GENERAL: The patient is awake, alert, and fully oriented, Nontoxic - in no acute distress. HEAD: Normocephalic, atraumatic. EYES: extraocular movements intact, sclera anicteric, conjunctiva clear. ENT: Normal voice, Moist mucous membranes. NECK: Normal range of motion, supple LUNGS: Breath sounds equal, clear to auscultation bilaterally. No wheezes, no rhonchi, no rales. HEART: irregularly irregular ABDOMEN: Soft, nontender, No guarding, no rebound. No CVA tenderness EXTREMITIES: Normal range of motion, + b/l edema. neg homans, no calf tenderness NEUROLOGICAL: No facial assymetry, Normal speech, PSYCH: Normal mood, normal affect. SKIN: Warm, Dry, normal turgor, - Medical Decision Making suspect possible chf exacerbation vs pe vs acs vs metabolic derangement vs anemia will ck labs, cxr ekg will reassess 05/26/19 15:21 The patient's bedside ultrasound noted for significant B-lines consistent with CHF exacerbation, will admit for further management no Heart Score/ECG Review - ECG Impressions Comment:: 05/26/19 15:20 Twelve-lead EKG was performed and reviewed by me. There is rate of 107, irregularly irregular Right axis devaition
[2019-05-26 13:10] LABS: BASO % 0.7 % (0-2.0); EOS % 1.1 % (0-4.5); HEMATOCRIT 37.7 % (32.4-45.2); HEMOGLOBIN 12.1 GM/dL (10.7-15.3); MCH 27.7 pg (25.7-33.7); MCHC 32.1 g/dl (32.0-36.0); MEAN CELL VOLUME 86.4 fl (80-96); MEAN PLT VOLUME 10.7 fl (7.5-11.1); MONO % 8.2 % (3.8-10.2); PLATELET COUNT 201 K/MM3 (134-434); RBC 4.37 M/mm3 (3.60-5.2); RDW 15.3 % (11.6-15.6); WHITE BLOOD COUNT 8.2 K/mm3 (4.0-10.0)
[2019-05-26 13:35] LABS: INR 1.07 (0.83-1.09); PROTHROMBIN TIME (PATIENT) 12.6 SEC (9.7-13.0)
[2019-05-26 13:48] LABS: ALBUMIN 3.5 g/dl (3.4-5.0); BILIRUBIN,TOTAL 0.9 mg/dL (0.2-1); BLOOD UREA NITROGEN 27.6 mg/dL (7-18); CALCIUM 9.8 mg/dL (8.5-10.1); CREATININE 1.2 mg/dL (0.55-1.3); MAGNESIUM 1.7 mg/dL (1.8-2.4); POTASSIUM 4.4 mmol/L (3.5-5.1); TOT PROT 7.5 g/dl (6.4-8.2)
[2019-05-26 14:07] LABS: N-TERMINAL BNP 11018.5 pg/ml (5-125)
[2019-05-26] MEDS ORDERED: FUROSEMIDE 40 MG/4 ML INJECTABLE VIAL IVPUSH ONE (15:46)
[2019-05-26] MEDS ORDERED: FUROSEMIDE 40 MG/4 ML INJECTABLE VIAL ONE (17:24)
[2019-05-26] MEDS ORDERED: LORazepam 1 MG TABLET PO ONE (17:37)
[2019-05-26] MEDS ORDERED: ZOLPIDEM TARTRATE 5 MG TABLET PO PRN (17:38)
[2019-05-26] MEDS ORDERED: LORazepam 0.5 MG TABLET ONE (17:57)
[2019-05-26] MEDS ORDERED: METOPROLOL TARTRATE 150 MG PO SCH (22:00)
[2019-05-26] MEDS: METOPROLOL TARTRATE 50 MG TABLET (FP) PO SCH (22:18)
[2019-05-26] MEDS: ROSUVASTATIN CA 10 MG TABLET (FP) PO SCH (22:18)
[2019-05-26] MEDS: ASPIRIN COATED 81 MG TABLET.EC PO SCH (22:22)
[2019-05-26] MEDS: MIRTAZAPINE 15 MG TABLET (FP) PO SCH (23:00)
[2019-05-27] MEDS: LORazepam 1 MG TABLET PO PRN ×3 (03:24→23:34)
[2019-05-27 06:50] LABS: BASO % 0.4 % (0-2.0); EOS % 2.3 % (0-4.5); HEMATOCRIT 37.9 % (32.4-45.2); HEMOGLOBIN 12.5 GM/dL (10.7-15.3); LYMPH % 24.6 % (8-40); MCH 28.3 pg (25.7-33.7); MCHC 33.1 g/dl (32.0-36.0); MEAN CELL VOLUME 85.6 fl (80-96); MEAN PLT VOLUME 11.2 fl (7.5-11.1); MONO % 9.2 % (3.8-10.2); NEUT % 63.5 % (42.8-82.8); PLATELET COUNT 217 K/MM3 (134-434); RBC 4.43 M/mm3 (3.60-5.2); RDW 15.1 % (11.6-15.6); WHITE BLOOD COUNT 8.5 K/mm3 (4.0-10.0)
[2019-05-27 07:11] LABS: ALBUMIN 3.6 g/dl (3.4-5.0); ALK PHOS 104 U/L (45-117); ANION GAP 9 MMOL/L (8-16); BILIRUBIN,TOTAL 1.1 mg/dL (0.2-1); BLOOD UREA NITROGEN 29.3 mg/dL (7-18); CALCIUM 9.3 mg/dL (8.5-10.1); CHLORIDE 104 mmol/L (98-107); CHOLESTEROL 162 mg/dL (50-200); CO2 25 mmol/L (21-32); CREATININE 1.4 mg/dL (0.55-1.3); GLUCOSE,RANDOM 203 mg/dL (74-106); HDL CHOLESTEROL 63 mg/dL (40-60); LDL CHOLESTEROL (ONLY SJRH) 79 mg/dL (5-100); MAGNESIUM 1.7 mg/dL (1.8-2.4); SGOT/AST 18 U/L (15-37); SGPT/ALT 29 U/L (13-61); SODIUM 138 mmol/L (136-145); TOT PROT 7.4 g/dl (6.4-8.2); TRIGLYCERIDES 152 mg/dL (0-150)
--- NOTE | 2019-05-27 08:44 | HP ---
Admitting History and Physical - Primary Care Physician PCP: Shan Nino - Admission Chief Complaint: SOB History of Present Illness: SENT FROM MY OFFICE YESTERDAY BECAUSE OF DYSPNEA, EDEMA, AND DECREASED BREATH SOUNDS ON PHYSICAL EXAM H/O CHF, AFIB, FORMER ETOH DEPENDENT History Source: Patient - Past Medical History Cardiovascular: Yes: AFIB, HTN, Hyperlipdemia Gastrointestinal: Yes: Irritable Bowel Disease, Pancreatitis (current alcoholic pancreatitis) Hepatobiliary: Yes: Other (current alcoholic hepatitis and likely cirrhosis) Renal/: Yes: Renal Inusuff Heme/Onc: Yes: Thrombocytopenia Psych: Yes: Addictions (alcohol abuse ) Endocrine: Yes: Diabetes Mellitus - Past Surgical History Past Surgical History: Yes: None - Advance Directives Advance Directives: Yes: Health Care Proxy - Smoking History Smoking history: Former smoker Have you smoked in the past 12 months: Yes Aproximately how many cigarettes per day: 0 If you are a former smoker, when did you quit?: 40 yrs ago - Alcohol/Substance Use Hx Alcohol Use: Yes (Regular) - Social History ADL: Independent 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 History of Recent Travel: No Home Medications - Allergies Allergies/Adverse Reactions: Allergies Allergy/AdvReac Type Severity Reaction Status Date / Time No Known Allergies Allergy Verified 05/26/19 12:12 - Home Medications Home Medications: Ambulatory Orders Aspirin [Ecotrin] 81 mg PO HS 05/26/19 Calcium Carbonate/Vitamin D3 [Calcium 500-Vit D3 200 Tablet] 2 tab PO DAILY Cyanocobalamin [Vitamin B12 -] 1,000 mcg PO DAILY 05/26/19 Lactulose (Oral Use) [Cephulac -] 20 gm PO DAILY 05/26/19 Lorazepam [Ativan] 1 mg PO TID PRN 05/26/19 Metoprolol Succinate [Toprol Xl] 3 tab PO DAILY 05/26/19 Metoprolol Tartrate 150 mg PO BID 05/26/19 Mirtazapine 7.5 mg PO HS 05/26/19 Multivitamin [One-Daily Multi-Vitamin] 1 each PO DAILY 05/26/19 Rosuvastatin Calcium [Crestor] 10 mg PO HS 05/26/19 Review of Systems - Review of Systems Constitutional: reports: Weakness Eyes: reports: No Symptoms HENT: reports: No Symptoms Neck: reports: No Symptoms Cardiovascular: reports: Shortness of Breath Respiratory: reports: Exercise Intolerance, Orthopnea, SOB Gastrointestinal: reports: No Symptoms Genitourinary: reports: No Symptoms Musculoskeletal: reports: No Symptoms Integumentary: reports: No Symptoms Neurological: reports: No Symptoms Endocrine: reports: No Symptoms Hematology/Lymphatic: reports: No Symptoms Psychiatric: reports: Other Physical Examination Vital Signs: Vital Signs Temperature 97.8 F 05/27/19 06:00 Pulse Rate 89 05/27/19 06:00 Respiratory Rate 20 05/27/19 06:00 Blood Pressure 131/77 05/27/19 06:00 O2 Sat by Pulse Oximetry (%) 94 L 05/26/19 21:00 Constitutional: Yes: Mild Distress Cardiovascular: Yes: Pulse Irregular Respiratory: Yes: Diminished Gastrointestinal: Yes: WNL Renal/: Yes: WNL Musculoskeletal: Yes: WNL Extremities: Yes: WNL Edema: No Peripheral Pulses WNL: Yes Integumentary: Yes: WNL Wound/Incision: Yes: Clean/Dry Neurological: Yes: WNL ...Motor Strength: WNL Psychiatric: Yes: WNL Labs: CBC, BMP 05/27/19 05:25 05/27/19 05:25 Imaging - Results Chest X-ray: Report Reviewed Cat Scan: Report Reviewed Problem List - Problems (1) CHF (congestive heart failure) Code(s): I50.9 - HEART FAILURE, UNSPECIFIED Qualifiers: Heart failure type: unspecified Heart failure chronicity: unspecified Qualified Code(s): I50.9 - Heart failure, unspecified (2) Anxiety and depression Code(s): F41.9 - ANXIETY DISORDER, UNSPECIFIED; F32.9 - MAJOR DEPRESSIVE DISORDER, SINGLE EPISODE, UNSPECIFIED (3) Atrial fibrillation Code(s): I48.91 - UNSPECIFIED ATRIAL FIBRILLATION (4) CKD (chronic kidney disease) Code(s): N18.9 - CHRONIC KIDNEY DISEASE, UNSPECIFIED (5) Chronic a-fib Code(s): I48.2 - CHRONIC ATRIAL FIBRILLATION * DO NOT USE * (6) Depression Code(s): F32.9 - MAJOR DEPRESSIVE DISORDER, SINGLE EPISODE, UNSPECIFIED (7) HTN (hypertension) Code(s): I10 - ESSENTIAL (PRIMARY) HYPERTENSION (8) SOB (shortness of breath) Code(s): R06.02 - SHORTNESS OF BREATH (9) T2DM (type 2 diabetes mellitus) Code(s): E11.9 - TYPE 2 DIABETES MELLITUS WITHOUT COMPLICATIONS Assessment/Plan BNP ELEVATED CARDIOLOGY EVAL MARCELINA IV OOB TO CHAIR PE CTA NEGATIVE NOT ON AC FOR CHRONIC AFIB JAVON SCORE DID NOT QUALIFY HER TO BE ON IT LAST ADMISSION.
[2019-05-27] MEDS ORDERED: MAGNESIUM SULF 50% (8.12 MEQ/2 ML-1 GM VIAL) IVPB ONE (08:45)
--- NOTE | 2019-05-27 08:46 | CON.CARD ---
Consult Consult Specialty:: Cardiology Referred by:: Mica Reason for Consultation:: CHF, afib - History of Present Illness Chief Complaint: sob History of Present Illness: She is a 68 year old woman with a history of chronic AFIB (currently not on AC due to alcoholism), chronic hepatitis, depression, hyperlipidemia, HTN, UC, history of GI bleeding and chronic ETOH, chronic systolic CHF due to nonischemic cardiomyopathy who was admitted for one week of worsening RUSSELL. CTA 05/26/19 no pe. Echocardiogram 11/12/18 Moderate to severely decreased LV function Moderate to severely decreased RV function Left atrial enlargement Right atrial enlargement There is moderate MR EF 35-40% Nuclear Stress Test 11/13/18 shows normal perfusion of myocardium - History Source History Provided By: Patient, Medical Record - Past Medical History Cardio/Vascular: Yes: AFIB, HTN, Hyperlipdemia Gastrointestinal: Yes: Irritable Bowel Disease, Pancreatitis (current alcoholic pancreatitis) Hepatobiliary: Yes: Other (current alcoholic hepatitis and likely cirrhosis) Renal/: Yes: Renal Inusuff Psych: Yes: Addictions (alcohol abuse ) Endocrine: Yes: Diabetes Mellitus - Past Surgical History Past Surgical History: Yes: None - Alcohol/Substance Use Hx Alcohol Use: Yes (Regular) - Smoking History Smoking history: Former smoker Have you smoked in the past 12 months: Yes Aproximately how many cigarettes per day: 0 If you are a former smoker, when did you quit?: 40 yrs ago - Social History Usual Living Arrangement: Alone ADL: Independent 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 History of Recent Travel: No Home Medications - Allergies Allergies/Adverse Reactions: Allergies Allergy/AdvReac Type Severity Reaction Status Date / Time No Known Allergies Allergy Verified 05/26/19 12:12 - Home Medications Home Medications: Ambulatory Orders Aspirin [Ecotrin] 81 mg PO HS 05/26/19 Calcium Carbonate/Vitamin D3 [Calcium 500-Vit D3 200 Tablet] 2 tab PO DAILY Cyanocobalamin [Vitamin B12 -] 1,000 mcg PO DAILY 05/26/19 Lactulose (Oral Use) [Cephulac -] 20 gm PO DAILY 05/26/19 Lorazepam [Ativan] 1 mg PO TID PRN 05/26/19 Metoprolol Succinate [Toprol Xl] 3 tab PO DAILY 05/26/19 Metoprolol Tartrate 150 mg PO BID 05/26/19 Mirtazapine 7.5 mg PO HS 05/26/19 Multivitamin [One-Daily Multi-Vitamin] 1 each PO DAILY 05/26/19 Rosuvastatin Calcium [Crestor] 10 mg PO HS 05/26/19 Vital Signs: Vital Signs Temperature 97.8 F 05/27/19 06:00 Pulse Rate 89 05/27/19 06:00 Respiratory Rate 20 05/27/19 06:00 Blood Pressure 131/77 05/27/19 06:00 O2 Sat by Pulse Oximetry (%) 94 L 05/26/19 21:00 - Other Data Labs, Other Data: CBC, BMP 05/27/19 05:25 05/27/19 05:25 INR, PTT INR 1.07 (0.83-1.09) 05/26/19 12:58 Troponin, BNP 05/26/19 05/27/19 12:58 05:25 Troponin I < 0.02 < 0.02 B-Natriuretic Peptide 52882.5 H 39233.5 H Troponin, BNP 05/26/19 05/27/19 12:58 05:25 Troponin I < 0.02 < 0.02 B-Natriuretic Peptide 53114.5 H 36939.5 H Assessment/Plan She is a 68 year old woman with a history of chronic AFIB (currently not on AC due to alcoholism), chronic hepatitis, depression, hyperlipidemia, HTN, UC, history of GI bleeding and chronic ETOH, chronic systolic CHF due to nonischemic cardiomyopathy who was admitted for one week of worsening RUSSELL. CTA 05/26/19 no pe. Echocardiogram 11/12/18 Moderate to severely decreased LV function Moderate to severely decreased RV function Left atrial enlargement Right atrial enlargement There is moderate MR EF 35-40% Nuclear Stress Test 11/13/18 shows normal perfusion of myocardium Acute on chronic systolic CHF -diurese with IV lasix 40 mg daily. -ACEI when stable. -follow k, creatinine. -follow daily wts -fluid and salt restriction Chronic atrial fibrillation -OK to DC aspirin -there is no role for asa in the prevention of strokes in atrial fibrillation, and she has no evidence of CAD by noninvasive testing. -consider AC if no GI bleeding with NOAC or coumadin for INR 2-3. -continue rate control with metoprolol.
[2019-05-27] MEDS ORDERED: ASPIRIN 81 MG CHEWABLE TABLETS PO SCH (10:00)
[2019-05-27] MEDS ORDERED: ASPIRIN COATED 81 MG TABLET.EC PO SCH (10:00)
[2019-05-27] MEDS ORDERED: PNEUMOC 13-VAL CONJ-DIP CRM/PF 0.5 ML DISP.SYRIN IM ONE (10:00)
[2019-05-27] MEDS: MULTIVITAMINS (DAILY MVI) TABLET (FP) PO SCH (10:54)
[2019-05-27] MEDS: CYANOCOBALAMIN 1,000 MCG TABLET (FP) PO SCH (10:55)
[2019-05-27] MEDS: THIAMINE HCL 100 MG TABLET (FP) PO SCH (10:55)
[2019-05-27] MEDS: CALCIUM 500MG/VIT-D 200 UNITS COMBO TABLET (FP) PO SCH (10:55)
[2019-05-27] MEDS: FOLIC ACID 1 MG TABLET (FP) PO SCH (10:55)
[2019-05-27] MEDS: METOPROLOL TARTRATE 50 MG TABLET (FP) PO SCH ×2 (10:57→21:34)
[2019-05-27] MEDS: FUROSEMIDE 40 MG/4 ML INJECTABLE VIAL IVPUSH SCH (10:58)
--- NOTE | 2019-05-27 11:17 | PN ---
Progress Note (short form) - Note Progress Note: PULMONARY CONSULTATION DICTATED 05/27/19 IMP DYSPNEA ACUTE ON CHRONIC SYSTOLIC CHF NON-ISCHEMIC CARDIOMYOPATHY LV SYSTOLIC EF 35-40% AFIB NOT ON AC HTN HLD H/O ETOH PULMONARY NODULE PLAN IV LASIX O2 DAILY WTS F/U CHEST X-RAYS MONITOR LYTES,RENAL FUNCTION F/U CHEST CT [address] BEE Problem List - Problems (1) CHF (congestive heart failure) Code(s): I50.9 - HEART FAILURE, UNSPECIFIED Qualifiers: Heart failure type: unspecified Heart failure chronicity: unspecified Qualified Code(s): I50.9 - Heart failure, unspecified (2) Atrial fibrillation Code(s): I48.91 - UNSPECIFIED ATRIAL FIBRILLATION (3) Chronic a-fib Code(s): I48.2 - CHRONIC ATRIAL FIBRILLATION * DO NOT USE * (4) HTN (hypertension) Code(s): I10 - ESSENTIAL (PRIMARY) HYPERTENSION (5) SOB (shortness of breath) Code(s): R06.02 - SHORTNESS OF BREATH (6) Pulmonary nodule Code(s): R91.1 - SOLITARY PULMONARY NODULE (7) Acute on chronic systolic CHF (congestive heart failure) Code(s): I50.23 - ACUTE ON CHRONIC SYSTOLIC (CONGESTIVE) HEART FAILURE
--- NOTE | 2019-05-27 12:11 | EKG ---
Test Reason : Blood Pressure : / mmHG Vent. Rate : 107 BPM Atrial Rate : 107 BPM P-R Int : 000 ms QRS Dur : 090 ms QT Int : 342 ms P-R-T Axes : 000 115 150 degrees QTc Int : 456 ms ATRIAL FIBRILLATION WITH RAPID VENTRICULAR RESPONSE RIGHT AXIS DEVIATION PULMONARY DISEASE PATTERN T WAVE ABNORMALITY, CONSIDER LATERAL ISCHEMIA ABNORMAL ECG Confirmed by MD Hodgson Edward ([id number]) on 05/27/2019 12:11:17 PM Referred By: Confirmed By:Navid Hodgson MD
--- NOTE | 2019-05-27 14:51 | CONSULT ---
Consult Consult Specialty:: Nephrology Reason for Consultation:: fluid overload and ckd - History of Present Illness Chief Complaint: sent in for dyspnea History of Present Illness: Pti s a 68 year old female with pmhxof a-fib, chf, htn, dm. etoh abuse, hepatitis, depression, IBD and sleep apnea who was sent in for dyspnea. She gets shortness of breath with minimal ambulation. She denies chest pain. She denies dysuria or hematuria. She does complain of lower ext edema. She denies nsaid use. She denies fever or chills. She denies cough. - History Source History Provided By: Patient, Medical Record - Past Medical History Cardio/Vascular: Yes: AFIB, HTN, Hyperlipdemia Gastrointestinal: Yes: Irritable Bowel Disease, Pancreatitis (current alcoholic pancreatitis) Hepatobiliary: Yes: Other (current alcoholic hepatitis and likely cirrhosis) Renal/: Yes: Renal Inusuff Psych: Yes: Addictions (alcohol abuse ) Endocrine: Yes: Diabetes Mellitus - Past Surgical History Past Surgical History: Yes: None - Alcohol/Substance Use Hx Alcohol Use: Yes (Regular) - Smoking History Smoking history: Former smoker Have you smoked in the past 12 months: Yes Aproximately how many cigarettes per day: 0 If you are a former smoker, when did you quit?: 40 yrs ago - Social History Usual Living Arrangement: Alone ADL: Independent 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 History of Recent Travel: No Home Medications - Allergies Allergies/Adverse Reactions: Allergies Allergy/AdvReac Type Severity Reaction Status Date / Time No Known Allergies Allergy Verified 05/26/19 12:12 - Home Medications Home Medications: Ambulatory Orders Aspirin [Ecotrin] 81 mg PO HS 05/26/19 Calcium Carbonate/Vitamin D3 [Calcium 500-Vit D3 200 Tablet] 2 tab PO DAILY Cyanocobalamin [Vitamin B12 -] 1,000 mcg PO DAILY 05/26/19 Lactulose (Oral Use) [Cephulac -] 20 gm PO DAILY 05/26/19 Lorazepam [Ativan] 1 mg PO TID PRN 05/26/19 Metoprolol Succinate [Toprol Xl] 3 tab PO DAILY 05/26/19 Metoprolol Tartrate 150 mg PO BID 05/26/19 Mirtazapine 7.5 mg PO HS 05/26/19 Multivitamin [One-Daily Multi-Vitamin] 1 each PO DAILY 05/26/19 Rosuvastatin Calcium [Crestor] 10 mg PO HS 05/26/19 Family Medical History Family History: Denies Review of Systems - Review of Systems Constitutional: reports: No Symptoms Eyes: reports: No Symptoms HENT: reports: No Symptoms Neck: reports: No Symptoms Cardiovascular: reports: Edema, Shortness of Breath Respiratory: reports: SOB, SOB on Exertion Gastrointestinal: reports: No Symptoms Genitourinary: reports: No Symptoms Musculoskeletal: reports: No Symptoms Integumentary: reports: No Symptoms Neurological: reports: No Symptoms Endocrine: reports: No Symptoms Hematology/Lymphatic: reports: No Symptoms Psychiatric: reports: No Symptoms Physical Exam Vital Signs: Vital Signs Temperature 98.2 F 05/27/19 14:00 Pulse Rate 107 H 05/27/19 14:00 Respiratory Rate 16 05/27/19 14:00 Blood Pressure 113/80 05/27/19 14:00 O2 Sat by Pulse Oximetry (%) 94 L 05/27/19 09:01 Constitutional: Yes: Calm Eyes: Yes: Conjunctiva Clear HENT: Yes: Atraumatic Neck: Yes: Supple Cardiovascular: Yes: S1, S2 Respiratory: Yes: CTA Bilaterally Gastrointestinal: Yes: Soft Renal/: Yes: WNL Musculoskeletal: Yes: WNL Edema: Yes Edema: LLE: Trace, RLE: Trace Neurological: Yes: Oriented Psychiatric: Yes: Oriented Labs: CBC, BMP 05/27/19 05:25 05/27/19 05:25 Laboratory Tests 11/27/18 11/28/18 05/26/19 06:42 05:40 12:58 WBC Hgb Sodium Potassium BUN Creatinine 1.1 1.2 Est GFR (CKD-EPI)NonAf B-Natriuretic Peptide 86366.5 H 05/26/19 05/26/19 05/27/19 12:58 12:58 05:25 WBC 8.5 Hgb 12.1 12.5 Sodium Potassium BUN Creatinine 1.2 Est GFR (CKD-EPI)NonAf B-Natriuretic Peptide 05/27/19 05:25 WBC Hgb Sodium 138 Potassium 4.0 BUN 29.3 H Creatinine 1.4 H Est GFR (CKD-EPI)NonAf 38.78 B-Natriuretic Peptide 44849.5 H Imaging - Results Cat Scan: Report Reviewed Problem List - Problems (1) CKD (chronic kidney disease) Code(s): N18.9 - CHRONIC KIDNEY DISEASE, UNSPECIFIED (2) CHF (congestive heart failure) Code(s): I50.9 - HEART FAILURE, UNSPECIFIED Qualifiers: Heart failure type: unspecified Heart failure chronicity: unspecified Qualified Code(s): I50.9 - Heart failure, unspecified Assessment/Plan Current Medications Generic Name Dose Route Start Last Admin Trade Name Freq PRN Reason Stop Dose Admin Aspirin 81 mg 05/26/19 22:00 05/26/19 22:22 Ecotrin - PO 81 mg HS LESLY Administration Calcium Carbonate/Cholecalciferol 2 tab 05/27/19 10:00 05/27/19 10:55 Os-Hardik 500+D - PO 2 tab DAILY LESLY Administration Cyanocobalamin 1,000 mcg 05/27/19 10:00 05/27/19 10:55 Vitamin B12 - PO 1,000 mcg DAILY LESLY Administration Folic Acid 1 mg 05/27/19 10:00 05/27/19 10:55 Folic Acid - PO 1 mg DAILY LESLY Administration Furosemide 40 mg 05/27/19 10:00 05/27/19 10:58 Lasix Injection - IVPUSH 40 mg DAILY LESLY Administration Lorazepam 1 mg 05/26/19 19:12 05/27/19 03:24 Ativan - PO 1 mg TID PRN Administration ANXIETY Metoprolol Tartrate 150 mg 05/26/19 22:00 05/27/19 10:57 Lopressor - PO 150 mg BID LESLY Administration Mirtazapine 7.5 mg 05/26/19 23:00 05/26/19 23:00 Remeron - PO 7.5 mg HS LESLY Administration Multivitamins/Minerals/Vitamin C 1 tab 05/27/19 10:00 05/27/19 10:54 Tab-A-Vit - PO 1 tab DAILY LESLY Administration Rosuvastatin Calcium 10 mg 05/26/19 22:00 05/26/19 22:18 Crestor - PO 10 mg HS LESLY Administration Thiamine HCl 100 mg 05/27/19 10:00 05/27/19 10:55 Vitamin B1 - PO 100 mg DAILY LESLY Administration Zolpidem Tartrate 5 mg 05/26/19 17:38 05/26/19 22:18 Ambien - PO 05/27/19 17:37 5 mg HS PRN Administration INSOMNIA Impression 1. CKD 2. etoh abuse 3. dyspnea 4. paroxysmal A fib 5. HTN 6. HLD 7. DM 8. Ulcerative colitis 9. CHF Plan - cont lasix - replace mag - monitor lytes - monitor volume status - repeat bmp in am
[2019-05-27] MEDS: LACTULOSE 20 GM/30 ML UDC (FOR ORAL USE ONLY) PO SCH (17:11)
[2019-05-27] MEDS ORDERED: ACETAMINOPHEN 325 MG TABLET (FP) PO STA (20:46)
[2019-05-27] MEDS ORDERED: ZOLPIDEM TARTRATE 5 MG TABLET PO ONE (20:46)
[2019-05-27] MEDS: ASPIRIN COATED 81 MG TABLET.EC PO SCH (21:35)
[2019-05-27] MEDS: ROSUVASTATIN CA 10 MG TABLET (FP) PO SCH (21:35)
[2019-05-27] MEDS: MAGNESIUM OXIDE 400 MG TABLET (FP) PO SCH (21:35)
[2019-05-27] MEDS: MIRTAZAPINE 15 MG TABLET (FP) PO SCH (21:36)
[2019-05-28 07:31] LABS: ALBUMIN 3.4 g/dl (3.4-5.0); BILIRUBIN,TOTAL 0.7 mg/dL (0.2-1); BLOOD UREA NITROGEN 24.6 mg/dL (7-18); CALCIUM 9.4 mg/dL (8.5-10.1); CREATININE 1.1 mg/dL (0.55-1.3); MAGNESIUM 1.9 mg/dL (1.8-2.4); POTASSIUM 4.1 mmol/L (3.5-5.1); TOT PROT 6.9 g/dl (6.4-8.2)
[2019-05-28] MEDS: THIAMINE HCL 100 MG TABLET (FP) PO SCH (09:06)
[2019-05-28] MEDS: LACTULOSE 20 GM/30 ML UDC (FOR ORAL USE ONLY) PO SCH (09:06)
[2019-05-28] MEDS: CYANOCOBALAMIN 1,000 MCG TABLET (FP) PO SCH (09:07)
[2019-05-28] MEDS: MULTIVITAMINS (DAILY MVI) TABLET (FP) PO SCH (09:07)
[2019-05-28] MEDS: CALCIUM 500MG/VIT-D 200 UNITS COMBO TABLET (FP) PO SCH (09:07)
[2019-05-28] MEDS: METOPROLOL TARTRATE 50 MG TABLET (FP) PO SCH (09:07)
[2019-05-28] MEDS: MAGNESIUM OXIDE 400 MG TABLET (FP) PO SCH (09:07)
[2019-05-28] MEDS: FUROSEMIDE 40 MG/4 ML INJECTABLE VIAL IVPUSH SCH (09:08)
[2019-05-28] MEDS: FOLIC ACID 1 MG TABLET (FP) PO SCH (09:08)
[2019-05-28] MEDS: LORazepam 1 MG TABLET PO PRN (09:10)
--- NOTE | 2019-05-28 09:27 | PN ---
Progress Note, Physician Chief Complaint: CHF exacerbation History of Present Illness: NAD SOB improved Seen by Cardiology - Current Medication List Current Medications: Active Medications Aspirin (Ecotrin -) 81 mg PO HS [facility] Last Admin: 05/27/19 21:35 Dose: 81 mg Calcium Carbonate/Cholecalciferol (Os-Hardik 500+D -) 2 tab PO DAILY [facility] Last Admin: 05/28/19 09:07 Dose: 2 tab Cyanocobalamin (Vitamin B12 -) 1,000 mcg PO DAILY [facility] Last Admin: 05/28/19 09:07 Dose: 1,000 mcg Folic Acid (Folic Acid -) 1 mg PO DAILY [facility] Last Admin: 05/28/19 09:08 Dose: 1 mg Furosemide (Lasix Injection -) 40 mg IVPUSH DAILY [facility] Last Admin: 05/28/19 09:08 Dose: 40 mg Lactulose (Cephulac (Oral Use)) 20 gm PO DAILY [facility] Last Admin: 05/28/19 09:06 Dose: 20 gm Lorazepam (Ativan -) 1 mg PO TID PRN PRN Reason: ANXIETY Last Admin: 05/28/19 09:10 Dose: 1 mg Magnesium Oxide (Mag-Ox -) 400 mg PO BID [facility] Last Admin: 05/28/19 09:07 Dose: 400 mg Metoprolol Tartrate (Lopressor -) 150 mg PO BID [facility] Last Admin: 05/28/19 09:07 Dose: 150 mg Mirtazapine (Remeron -) 7.5 mg PO HS [facility] Last Admin: 05/27/19 21:36 Dose: 7.5 mg Multivitamins/Minerals/Vitamin C (Tab-A-Vit -) 1 tab PO DAILY [facility] Last Admin: 05/28/19 09:07 Dose: 1 tab Rosuvastatin Calcium (Crestor -) 10 mg PO HS [facility] Last Admin: 05/27/19 21:35 Dose: 10 mg Thiamine HCl (Vitamin B1 -) 100 mg PO DAILY [facility] Last Admin: 05/28/19 09:06 Dose: 100 mg - Objective Vital Signs: Vital Signs Temperature 97.7 F 05/28/19 06:00 Pulse Rate 95 H 05/28/19 06:00 Respiratory Rate 18 05/28/19 06:00 Blood Pressure 131/89 05/28/19 06:00 O2 Sat by Pulse Oximetry (%) 94 L 05/27/19 21:00 Constitutional: Yes: Well Nourished, No Distress, Calm Cardiovascular: Yes: Regular Rate and Rhythm Respiratory: Yes: Regular Gastrointestinal: Yes: Normal Bowel Sounds, Soft Musculoskeletal: Yes: Muscle Weakness Extremities: Yes: WNL Edema: No Peripheral Pulses WNL: Yes Neurological: Yes: Alert, Oriented Psychiatric: Yes: Alert, Oriented Labs: CBC, BMP 05/27/19 05:25 05/28/19 05:45 INR, PTT INR 1.07 (0.83-1.09) 05/26/19 12:58 Problem List - Problems (1) Acute on chronic systolic CHF (congestive heart failure) Assessment/Plan: -Last Echo:11/12/18 Moderate to severely decreased LV function Moderate to severely decreased RV function Left atrial enlargement Right atrial enlargement There is moderate MR EF 35-40% -IV diuresis---> change to furosemide 40 mg po daily o/p -Cardiology consult -Low sodium/diabetic diet -Monitor daily weight -nasal O 2 PRN to keep SpO2>90% Problems reviewed: Yes Code(s): I50.23 - ACUTE ON CHRONIC SYSTOLIC (CONGESTIVE) HEART FAILURE (2) Chronic a-fib Assessment/Plan: -was discontinued in the past 2/2 to non compliance and GI bleed -Would restart again and monitor H/H closely- compliance can be monitored o/p -Eliquis 5 mg po bid-expensive co-pay -Will start Coumadin 5 mg po once and then 2.5 mg po daily starting tomorrow -Chadvasc score of 5- with high risk of thromboembolism Problems reviewed: Yes Code(s): I48.2 - CHRONIC ATRIAL FIBRILLATION * DO NOT USE * (3) CKD (chronic kidney disease) Assessment/Plan: -Nephrology on board -monitor trend Problems reviewed: Yes Code(s): N18.9 - CHRONIC KIDNEY DISEASE, UNSPECIFIED Assessment/Plan see problem list
[2019-05-28 09:55] VITALS: BP 147/90; PULSE 79; TEMP 98
--- NOTE | 2019-05-28 09:55 | PN ---
Progress Note, Physician History of Present Illness: PULMONARY ALERT,COMFORTABLE,SOB IMPROVED - Current Medication List Current Medications: Active Medications Apixaban (Eliquis -) 5 mg PO BID [facility] Last Admin: 05/28/19 09:41 Dose: 5 mg Aspirin (Ecotrin -) 81 mg PO HS [facility] Last Admin: 05/27/19 21:35 Dose: 81 mg Calcium Carbonate/Cholecalciferol (Os-Hardik 500+D -) 2 tab PO DAILY [facility] Last Admin: 05/28/19 09:07 Dose: 2 tab Cyanocobalamin (Vitamin B12 -) 1,000 mcg PO DAILY [facility] Last Admin: 05/28/19 09:07 Dose: 1,000 mcg Folic Acid (Folic Acid -) 1 mg PO DAILY [facility] Last Admin: 05/28/19 09:08 Dose: 1 mg Furosemide (Lasix Injection -) 40 mg IVPUSH DAILY [facility] Last Admin: 05/28/19 09:08 Dose: 40 mg Lactulose (Cephulac (Oral Use)) 20 gm PO DAILY [facility] Last Admin: 05/28/19 09:06 Dose: 20 gm Lorazepam (Ativan -) 1 mg PO TID PRN PRN Reason: ANXIETY Last Admin: 05/28/19 09:10 Dose: 1 mg Magnesium Oxide (Mag-Ox -) 400 mg PO BID [facility] Last Admin: 05/28/19 09:07 Dose: 400 mg Metoprolol Tartrate (Lopressor -) 150 mg PO BID [facility] Last Admin: 05/28/19 09:07 Dose: 150 mg Mirtazapine (Remeron -) 7.5 mg PO HS [facility] Last Admin: 05/27/19 21:36 Dose: 7.5 mg Multivitamins/Minerals/Vitamin C (Tab-A-Vit -) 1 tab PO DAILY [facility] Last Admin: 05/28/19 09:07 Dose: 1 tab Rosuvastatin Calcium (Crestor -) 10 mg PO HS [facility] Last Admin: 05/27/19 21:35 Dose: 10 mg Thiamine HCl (Vitamin B1 -) 100 mg PO DAILY [facility] Last Admin: 05/28/19 09:06 Dose: 100 mg - Objective Vital Signs: Vital Signs Temperature 98 F 05/28/19 09:54 Pulse Rate 79 05/28/19 09:54 Respiratory Rate 18 05/28/19 09:54 Blood Pressure 147/90 05/28/19 09:54 O2 Sat by Pulse Oximetry (%) 94 L 05/27/19 21:00 Constitutional: Yes: Well Nourished, Calm Eyes: Yes: WNL HENT: Yes: WNL Neck: Yes: WNL Cardiovascular: Yes: Pulse Irregular, S1, S2 Respiratory: Yes: Diminished Gastrointestinal: Yes: Normal Bowel Sounds, Soft Extremities: Yes: WNL Edema: No Labs: CBC, BMP 05/28/19 05:45 INR, PTT Problem List - Problems (1) CHF (congestive heart failure) Code(s): I50.9 - HEART FAILURE, UNSPECIFIED Qualifiers: Heart failure type: unspecified Heart failure chronicity: unspecified Qualified Code(s): I50.9 - Heart failure, unspecified (2) Atrial fibrillation Code(s): I48.91 - UNSPECIFIED ATRIAL FIBRILLATION (3) Chronic a-fib Code(s): I48.2 - CHRONIC ATRIAL FIBRILLATION * DO NOT USE * (4) HTN (hypertension) Code(s): I10 - ESSENTIAL (PRIMARY) HYPERTENSION (5) SOB (shortness of breath) Code(s): R06.02 - SHORTNESS OF BREATH (6) Pulmonary nodule Code(s): R91.1 - SOLITARY PULMONARY NODULE (7) Acute on chronic systolic CHF (congestive heart failure) Code(s): I50.23 - ACUTE ON CHRONIC SYSTOLIC (CONGESTIVE) HEART FAILURE Assessment/Plan IMP DYSPNEA IMPROVED ACUTE ON CHRONIC SYSTOLIC CHF NON-ISCHEMIC CARDIOMYOPATHY LV SYSTOLIC EF 35-40% AFIB NOT ON AC HTN HLD H/O ETOH PULMONARY NODULE PLAN IV LASIX O2 DAILY WTS F/U CHEST X-RAYS MONITOR LYTES,RENAL FUNCTION F/U CHEST CT [address] BEE Problem List - Problems (1) CHF (congestive heart failure) Code(s): I50.9 - HEART FAILURE, UNSPECIFIED Qualifiers: Heart failure type: unspecified Heart failure chronicity: unspecified Qualified Code(s): I50.9 - Heart failure, unspecified (2) Atrial fibrillation Code(s): I48.91 - UNSPECIFIED ATRIAL FIBRILLATION (3) Chronic a-fib Code(s): I48.2 - CHRONIC ATRIAL FIBRILLATION * DO NOT USE * (4) HTN (hypertension) Code(s): I10 - ESSENTIAL (PRIMARY) HYPERTENSION (5) SOB (shortness of breath) Code(s): R06.02 - SHORTNESS OF BREATH (6) Pulmonary nodule Code(s): R91.1 - SOLITARY PULMONARY NODULE (7) Acute on chronic systolic CHF (congestive heart failure) Code(s): I50.23 - ACUTE ON CHRONIC SYSTOLIC (CONGESTIVE) HEART FAILURE
[2019-05-28] MEDS ORDERED: APIXABAN 5 MG TABLET PO SCH (10:00)
[2019-05-28] MEDS ORDERED: FUROSEMIDE 40 MG/4 ML INJECTABLE VIAL IVPUSH ONE (10:56)
[2019-05-28] MEDS ORDERED: LISINOPRIL 5 MG TABLET (FP) PO SCH (11:00)
[2019-05-28] MEDS ORDERED: WARFARIN NA 5 MG TABLET (UD) PO ONE (11:55)
--- NOTE | 2019-05-28 13:00 | PN ---
Progress Note, Physician History of Present Illness: Pt seen and examined at bedside. She is awake and alert. She denies shortness of breath. She is eager to go home. - Current Medication List Current Medications: Active Medications Aspirin (Ecotrin -) 81 mg PO HS [facility] Last Admin: 05/27/19 21:35 Dose: 81 mg Calcium Carbonate/Cholecalciferol (Os-Hardik 500+D -) 2 tab PO DAILY [facility] Last Admin: 05/28/19 09:07 Dose: 2 tab Cyanocobalamin (Vitamin B12 -) 1,000 mcg PO DAILY [facility] Last Admin: 05/28/19 09:07 Dose: 1,000 mcg Folic Acid (Folic Acid -) 1 mg PO DAILY [facility] Last Admin: 05/28/19 09:08 Dose: 1 mg Furosemide (Lasix Injection -) 40 mg IVPUSH DAILY [facility] Last Admin: 05/28/19 09:08 Dose: 40 mg Lactulose (Cephulac (Oral Use)) 20 gm PO DAILY [facility] Last Admin: 05/28/19 09:06 Dose: 20 gm Lisinopril (Prinivil) 2.5 mg PO DAILY [facility] Last Admin: 05/28/19 11:56 Dose: 2.5 mg Lorazepam (Ativan -) 1 mg PO TID PRN PRN Reason: ANXIETY Last Admin: 05/28/19 09:10 Dose: 1 mg Magnesium Oxide (Mag-Ox -) 400 mg PO BID [facility] Last Admin: 05/28/19 09:07 Dose: 400 mg Metoprolol Tartrate (Lopressor -) 150 mg PO BID [facility] Last Admin: 05/28/19 09:07 Dose: 150 mg Mirtazapine (Remeron -) 7.5 mg PO HS [facility] Last Admin: 05/27/19 21:36 Dose: 7.5 mg Multivitamins/Minerals/Vitamin C (Tab-A-Vit -) 1 tab PO DAILY [facility] Last Admin: 05/28/19 09:07 Dose: 1 tab Rosuvastatin Calcium (Crestor -) 10 mg PO HS [facility] Last Admin: 05/27/19 21:35 Dose: 10 mg Thiamine HCl (Vitamin B1 -) 100 mg PO DAILY [facility] Last Admin: 05/28/19 09:06 Dose: 100 mg - Objective Vital Signs: Vital Signs Temperature 98 F 05/28/19 09:54 Pulse Rate 79 05/28/19 09:54 Respiratory Rate 18 05/28/19 09:54 Blood Pressure 147/90 05/28/19 09:54 O2 Sat by Pulse Oximetry (%) 93 L 05/28/19 09:00 Constitutional: Yes: Calm Eyes: Yes: Conjunctiva Clear HENT: Yes: Atraumatic Cardiovascular: Yes: S1, S2 Respiratory: Yes: CTA Bilaterally Gastrointestinal: Yes: Soft Genitourinary: Yes: WNL Musculoskeletal: Yes: WNL Edema: No Neurological: Yes: Oriented Psychiatric: Yes: Oriented Labs: CBC, BMP 05/27/19 05:25 05/28/19 05:45 INR, PTT INR 1.07 (0.83-1.09) 05/26/19 12:58 Problem List - Problems (1) CKD (chronic kidney disease) Code(s): N18.9 - CHRONIC KIDNEY DISEASE, UNSPECIFIED (2) CHF (congestive heart failure) Code(s): I50.9 - HEART FAILURE, UNSPECIFIED Qualifiers: Heart failure type: unspecified Heart failure chronicity: unspecified Qualified Code(s): I50.9 - Heart failure, unspecified Assessment/Plan Current Medications Generic Name Dose Route Start Last Admin Trade Name Freq PRN Reason Stop Dose Admin Aspirin 81 mg 05/26/19 22:00 05/27/19 21:35 Ecotrin - PO 81 mg HS LESLY Administration Calcium Carbonate/Cholecalciferol 2 tab 05/27/19 10:00 05/28/19 09:07 Os-Hardik 500+D - PO 2 tab DAILY [facility] Administration Cyanocobalamin 1,000 mcg 05/27/19 10:00 05/28/19 09:07 Vitamin B12 - PO 1,000 mcg DAILY LESLY Administration Folic Acid 1 mg 05/27/19 10:00 05/28/19 09:08 Folic Acid - PO 1 mg DAILY LESLY Administration Furosemide 40 mg 05/27/19 10:00 05/28/19 09:08 Lasix Injection - IVPUSH 40 mg DAILY [facility]ESLY Administration Lactulose 20 gm 05/27/19 16:45 05/28/19 09:06 Cephulac (Oral Use) PO 20 gm DAILY LESLY Administration Lisinopril 2.5 mg 05/28/19 11:00 05/28/19 11:56 Prinivil PO 2.5 mg DAILY LESLY Administration Lorazepam 1 mg 05/26/19 19:12 05/28/19 09:10 Ativan - PO 1 mg TID PRN Administration ANXIETY Magnesium Oxide 400 mg 05/27/19 22:00 05/28/19 09:07 Mag-Ox - PO 400 mg BID LESLY Administration Metoprolol Tartrate 150 mg 05/26/19 22:00 05/28/19 09:07 Lopressor - PO 150 mg BID LESLY Administration Mirtazapine 7.5 mg 05/26/19 23:00 05/27/19 21:36 Remeron - PO 7.5 mg HS LESLY Administration Multivitamins/Minerals/Vitamin C 1 tab 05/27/19 10:00 05/28/19 09:07 Tab-A-Vit - PO 1 tab DAILY [facility] Administration Rosuvastatin Calcium 10 mg 05/26/19 22:00 05/27/19 21:35 Crestor - PO 10 mg HS LESLY Administration Thiamine HCl 100 mg 05/27/19 10:00 05/28/19 09:06 Vitamin B1 - PO 100 mg DAILY LESLY Administration Impression 1. CKD 2. etoh abuse 3. dyspnea 4. paroxysmal A fib 5. HTN 6. HLD 7. DM 8. Ulcerative colitis 9. CHF Plan - cont with lasix - mag improved - discussed low sodium diet - pt wants outpt workup - renal function stable
[2019-05-28 14:31] VITALS: BMI 26.6
--- NOTE | 2019-05-30 19:00 | CONS ---
PULMONARY CONSULTATION DATE OF CONSULTATION: 05/27/2019 REFERRING PHYSICIAN: Shan Nino MD HISTORY: Patient is a 68-year-old white female with past medical history of chronic atrial fibrillation currently , chronic hepatitis, depression, hyperlipidemia, hypertension, history of UC, apparently history of GI bleeding, chronic systolic CHF due to nonischemic cardiomyopathy with [id number] RV and LV systolic dysfunction. Admitted to [facility] with complaint of a [id number] of shortness of breath and dyspnea on exertion. Patient denied any complaint of chest pain, nausea, vomiting, or diaphoresis. She states she has been able to ambulate and while ambulating getting progressively more short of breath. She also states at nighttime when she lies down she hears wheezes. She denies any fevers or chills. Denies any hemoptysis. PAST MEDICAL HISTORY: Again includes chronic atrial fibrillation, congestive heart failure, nonischemic cardiomyopathy, moderate mitral regurgitation, left ventricular ejection fraction 35%-40%, hyperlipidemia, depression, chronic hepatitis, ulcerative colitis. REVIEW OF SYSTEMS: No orthopnea, no PND, no chest pain, no palpitations. Positive dyspnea on exertion. No lower extremity edema. CURRENT MEDICATIONS: Include Remeron, Ambien, Ativan, Toprol, Lopressor, Crestor, Lasix, Tab-A-Sedrick, Ecotrin, Os-Hardik, vitamin B12, folic acid, and vitamin D1. PHYSICAL EXAMINATION: General: Patient is a well-developed, well-nourished female awake and alert in no acute distress. Vital Signs: She is currently afebrile. Blood pressure is 128/90, respiratory rate is 18, O2 saturation 95% on room air. HEENT: Normocephalic, atraumatic. Neck: Supple. Heart: Regular S1, S2. Chest: Clear. Abdomen: Soft. Bowel sounds positive. Extremities: No cyanosis or edema. LABORATORIES: BUN 29, creatinine 1.4, glucose 203, BNP 12,010, WBC 8.5, hemoglobin 12.5, hematocrit 37.9 with a platelet count of 217,000. Chest CT reveals no evidence of pulmonary emboli. Small, bilateral pleural effusions. There is a 1.1-cm left upper lobe posterior ground-glass nodule. No change from previous of November 01, 2018. IMPRESSION: 1. Dyspnea secondary to acute on chronic systolic congestive heart failure. 2. Nonischemic cardiomyopathy, left ventricular systolic ejection fraction of 35%-40%. 3. [id number] right ventricular and left ventricular dysfunction. 4. Atrial fibrillation not on anticoagulation. 5. Hypertension. 6. Hyperlipidemia. 7. Moderate right-sided pleural effusion. PLAN: Continue IV Lasix. Supplemental O2. Daily weighs. Obtain follow up chest x-rays. Monitor electrolytes. Renal function. Follow up pulmonary nodule as an outpatient in 6 months. MATTHEW BEE M.D. [id number]
== END 2019-05-28 13:23 | disposition home or self-care (01) | DRG 291 ==
LOC: JER 11:57 → JERBED 15:47 → J4S 20:22
PROVIDERS: ADMIT Family Medicine; ATTEND Family Medicine
DX: I13.0 Hypertensive heart and chronic kidney disease with heart failure and stage 1 through stage 4 chronic kidney disease, or unspecified chronic kidney disease (principal); I50.23 Acute on chronic systolic (congestive) heart failure; I48.20 Chronic atrial fibrillation, unspecified; N18.9 Chronic kidney disease, unspecified; E11.9 Type 2 diabetes mellitus without complications; E78.5 Hyperlipidemia, unspecified; I25.5 Ischemic cardiomyopathy; R91.8 Other nonspecific abnormal finding of lung field; F41.8 Other specified anxiety disorders
CPT/HCPCS: 36415; 71275-TC; 80048; 80053; 80061; 82550; 82962; 83036; 83721; 83735; 83880; 84484; 85025; 85610; 93005; 93010; 94010; 99284-25; Q9967

== ENCOUNTER 2020-08-24 03:57 | Observation (INO) | payer OTHER ==
[2020-08-24] MEDS ORDERED: FAMOTIDINE 20 MG/50 ML IVPB 20 MG/50 ML MG IVPB ONE ×2 (04:28→05:14)
[2020-08-24 05:12] LABS: BASO % 0.4 % (0-2.0); HEMATOCRIT 25.3 % (32.4-45.2); HEMOGLOBIN 8.5 GM/dL (10.7-15.3); MCH 32.1 pg (25.7-33.7); MCHC 33.6 g/dl (32.0-36.0); MEAN CELL VOLUME 95.4 fl (80-96); MEAN PLT VOLUME 9.5 fl (7.5-11.1); MONO % 5.4 % (3.8-10.2); NEUT % 90.2 % (42.8-82.8); PLATELET COUNT 301 K/MM3 (134-434); RBC 2.66 M/mm3 (3.60-5.2); RDW 15.6 % (11.6-15.6)
[2020-08-24 05:18] LABS: EPI CELLS 22 /uL (0-25.1); HYALINE CASTS 3 /uL (0-3.1); URINE APPEARANCE CLEAR; URINE BACTERIA 938 /uL (0-1359); URINE BILIRUBIN NEGATIVE (NEGATIVE); URINE COLOR YELLOW; URINE GLUCOSE (UA) 3+ (NEGATIVE); URINE KETONE TRACE (NEGATIVE); URINE LEUK ESTERASE NEGATIVE (NEGATIVE); URINE NITRITE NEGATIVE (NEGATIVE); URINE PROTEIN 1+ (NEGATIVE); URINE RBC 11 /uL (0-23.9); URINE UROBILINOGEN 0.2 mg/dL (0.2-1.0)
[2020-08-24 05:32] LABS: POTASSIUM 4.5 mmol/L (3.5-5.1)
[2020-08-24 05:34] LABS: ALBUMIN 2.8 g/dl (3.4-5.0); CALCIUM 9.1 mg/dL (8.5-10.1)
[2020-08-24 05:38] LABS: CREATININE 1.9 mg/dL (0.55-1.3)
[2020-08-24 05:40] LABS: BILIRUBIN,TOTAL 0.6 mg/dL (0.2-1); TOT PROT 6.6 g/dl (6.4-8.2)
[2020-08-24 05:42] LABS: N-TERMINAL BNP 4906.4 pg/ml (5-125)
[2020-08-24 10:47] LABS: BASO % 0.2 % (0-2.0); EOS % 0.6 % (0-4.5); HEMATOCRIT 26.2 % (32.4-45.2); HEMOGLOBIN 8.7 GM/dL (10.7-15.3); LYMPH % 7.3 % (8-40); MCH 31.5 pg (25.7-33.7); MCHC 33.1 g/dl (32.0-36.0); MEAN CELL VOLUME 95.2 fl (80-96); NEUT % 84.9 % (42.8-82.8); PLATELET COUNT 311 K/MM3 (134-434); RBC 2.75 M/mm3 (3.60-5.2); RDW 15.9 % (11.6-15.6); WHITE BLOOD COUNT 5.3 K/mm3 (4.0-10.0)
[2020-08-24] MEDS ORDERED: PANTOPRAZOLE SODIUM 40 MG VIAL IVPUSH SCH (12:30)
[2020-08-24] MEDS ORDERED: ACETAMINOPHEN 325 MG TABLET (FP) PO PRN (12:35)
[2020-08-24] MEDS ORDERED: PANTOPRAZOLE SODIUM 40 MG/100 ML BAG IVPB ONE (12:39)
[2020-08-24] MEDS ORDERED: SODIUM CHLORIDE 500 ML IV STA (13:51)
[2020-08-24 16:03] LABS: MAGNESIUM 2.1 mg/dL (1.8-2.4)
[2020-08-24 16:08] VITALS: BMI 21.5
[2020-08-24] MEDS ORDERED: INSULIN SLIDING SCALE (NOVOLOG) 1 VIAL SQ SCH (16:30)
[2020-08-24 20:16] VITALS: BP 133/84; PULSE 84
[2020-08-24 20:20] VITALS: TEMP 98
[2020-08-24] MEDS ORDERED: HEPARIN NA (PORCINE) 5,000 UNITS/ML 1ML VIAL SQ SCH (22:00)
[2020-08-24] MEDS ORDERED: METOPROLOL TARTRATE 50 MG TABLET (FP) PO SCH (22:00)
[2020-08-24] MEDS ORDERED: ZOLPIDEM TARTRATE 5 MG TABLET PO PRN (22:00)
[2020-08-25] MEDS ORDERED: CYANOCOBALAMIN 1,000 MCG TABLET (FP) PO SCH (10:00)
[2020-08-25] MEDS ORDERED: FOLIC ACID 1 MG TABLET (FP) PO SCH (10:00)
[2020-08-25] MEDS ORDERED: LORazepam 1 MG TABLET PO SCH (10:00)
[2020-08-25] MEDS ORDERED: THIAMINE HCL 100 MG TABLET (FP) PO SCH (10:00)
[2020-08-25] MEDS ORDERED: MULTIVITAMINS (DAILY MVI) TABLET (FP) PO SCH (10:00)
== END 2020-08-24 22:15 ==
LOC: JER 03:57 → JERBED 12:30 → UNDOADMOB 12:30 → OBSVTOIN 12:30 → INTOOBSV 12:30 → JERBED 13:54 → J7W 15:18
PROVIDERS: ADMIT Family Medicine; ATTEND Family Medicine
PROC: 3E013VG Introduction of Insulin into Subcutaneous Tissue, Percutaneous Approach (ICD-10-PCS; principal; 2020-08-24)
PROC: 3E033GC Introduction of Other Therapeutic Substance into Peripheral Vein, Percutaneous Approach (ICD-10-PCS; 2020-08-24)
PROC: 3E0337Z Introduction of Electrolytic and Water Balance Substance into Peripheral Vein, Percutaneous Approach (ICD-10-PCS; 2020-08-24)
DX: I12.9 Hypertensive chronic kidney disease with stage 1 through stage 4 chronic kidney disease, or unspecified chronic kidney disease (principal); N18.9 Chronic kidney disease, unspecified; F10.10 Alcohol abuse, uncomplicated; E11.22 Type 2 diabetes mellitus with diabetic chronic kidney disease; K51.90 Ulcerative colitis, unspecified, without complications; K70.10 Alcoholic hepatitis without ascites; K85.90 Acute pancreatitis without necrosis or infection, unspecified; E78.5 Hyperlipidemia, unspecified; R07.89 Other chest pain; Z87.891 Personal history of nicotine dependence
CPT/HCPCS: 36415; 71045-TC-FY; 74176-TC; 80053; 81003; 82550; 82607; 82728; 82962; 83036; 83540; 83550; 83605; 83690; 83735; 83880; 84443; 84484; 85025; 87086; 87186; 93005; 93010; 96361; 96365; 96372; 96375; 99285-25; C9803; G0378; U0003

== ENCOUNTER 2020-09-07 11:33 | Inpatient (IN) | payer OTHER ==
[2020-09-07] MEDS ORDERED: RAPID SEQUENCE INTUBATION KIT NR ONE (11:41)
[2020-09-07] MEDS ORDERED: ACETAMINOPHEN 1000 MG/100 ML VIAL (NON FORMULARY) IVPB ONE (11:48)
[2020-09-07] MEDS ORDERED: DEXAMETHASONE SOD PHOSPHATE 10 MG/1 ML VIAL IVPUSH ONE (11:48)
[2020-09-07] MEDS ORDERED: DEXAMETHASONE SOD PHOSPHATE 10 MG/1 ML VIAL ONE (12:34)
[2020-09-07] MEDS ORDERED: ACETAMINOPHEN INJECTION 100 ML IVPB ONE (12:34)
[2020-09-07 13:02] LABS: BASO % 0.1 % (0-2.0); HEMATOCRIT 21.2 % (32.4-45.2); LYMPH % 5.1 % (8-40); MCH 30.7 pg (25.7-33.7); MCHC 32.7 g/dl (32.0-36.0); MEAN CELL VOLUME 93.8 fl (80-96); MEAN PLT VOLUME 9.6 fl (7.5-11.1); MONO % 2.5 % (3.8-10.2); NEUT % 92.3 % (42.8-82.8); PLATELET COUNT 149 K/MM3 (134-434); RBC 2.26 M/mm3 (3.60-5.2); RDW 16.1 % (11.6-15.6); WHITE BLOOD COUNT 12.2 K/mm3 (4.0-10.0)
[2020-09-07 13:04] LABS: PROTHROMBIN TIME (PATIENT) 12.3 SEC (9.7-13.0)
[2020-09-07 13:08] LABS: ACTIVATED PTT 28.2 SECONDS (25.2-36.5)
[2020-09-07 13:09] LABS: EPI CELLS 18 /uL (0-25.1); HYALINE CASTS 8 /uL (0-3.1); PH,URINE 5.5 (5.0-8.0); URINE APPEARANCE TURBID; URINE BACTERIA 6732 /uL (0-1359); URINE BILIRUBIN NEGATIVE (NEGATIVE); URINE COLOR YELLOW; URINE GLUCOSE (UA) NEGATIVE (NEGATIVE); URINE KETONE NEGATIVE (NEGATIVE); URINE LEUK ESTERASE 3+ (NEGATIVE); URINE NITRITE NEGATIVE (NEGATIVE); URINE PROTEIN 1+ (NEGATIVE); URINE UROBILINOGEN 0.2 mg/dL (0.2-1.0); URINE WBC 22862 /uL (0-25.8)
[2020-09-07 13:10] LABS: HEMOGLOBIN 6.9 GM/dL (10.7-15.3)
[2020-09-07] MEDS ORDERED: morphine CARPU-JECT 2 MG/1 ML DISP.SYRIN IVPUSH ONE (13:11)
[2020-09-07 13:12] LABS: ARTERIAL BLD GAS O2 SATURATION 92.2 mmHg (95-98); ARTERIAL BLOOD GAS BASE EXCESS -3.8 mmol/L (-2-2); ARTERIAL BLOOD GAS PO2 59.5 mmHg (80-100); ARTERIAL BLOOD GAS pH 7.443 (7.350-7.450)
[2020-09-07 13:19] LABS: ALLENS TEST POSITIVE
[2020-09-07 13:21] LABS: CALCIUM 8.2 mg/dL (8.5-10.1)
[2020-09-07 13:22] LABS: ALBUMIN 1.9 g/dl (3.4-5.0)
[2020-09-07 13:24] LABS: BILIRUBIN,DIRECT 0.2 mg/dL (0.0-0.2)
[2020-09-07 13:25] LABS: CREATININE 2.5 mg/dL (0.55-1.3)
[2020-09-07 13:26] LABS: BILIRUBIN,TOTAL 0.4 mg/dL (0.2-1); TOT PROT 5.6 g/dl (6.4-8.2)
[2020-09-07 13:27] LABS: ANISOCYTOSIS 0; MACROCYTOSIS 0; PLATELET ESTIMATE DECREASED
[2020-09-07 13:28] LABS: URINE RBC 369 /uL (0-23.9); YEAST NEGATIVE (NEGATIVE)
[2020-09-07] MEDS ORDERED: MEROPENEM 500 MG in DEXTROSE 5%-WATER 100 ML IVPB ONE (13:28)
[2020-09-07] MEDS ORDERED: MORPHINE SULFATE 2 MG/ML VIAL ONE (13:30)
[2020-09-07] MEDS ORDERED: MEROPENEM 500 MG VIAL (RESTRICTED TO ID) IVPB ONE (13:38)
[2020-09-07] MEDS: LACTATED RINGERS SOLUTION 1,000 ML/1,000 ML INFUS.BAG IV SCH (14:18)
[2020-09-07] MEDS ORDERED: ENOXAPARIN NA (PORCINE) 40 MG/0.4 ML DISP.SYRIN SQ ONE ×2 (14:19→14:47)
[2020-09-07] MEDS: MUPIROCIN 2% TOPICAL OINTMENT FOR DECOLONIZATION NS SCH (21:57)
[2020-09-07] MEDS: CHLORHEXIDINE GLUCONATE 4% CLEANSER FOR DECOLONIZATION TP SCH (21:57)
[2020-09-07] MEDS: INSULIN SLIDING SCALE (NOVOLOG) 1 VIAL SQ SCH (21:58)
[2020-09-07] MEDS: FAMOTIDINE 20 MG/50 ML IVPB 20 MG/50 ML MG IVPB SCH (21:58)
[2020-09-07] MEDS ORDERED: INSULIN (LEVEMIR) 100 UNITS/ML UNITS SQ SCH (22:00)
[2020-09-08] MEDS: MEROPENEM 500 MG in DEXTROSE 5%-WATER 100 ML IVPB SCH ×3 (01:00→14:34)
[2020-09-08] MEDS ORDERED: MEROPENEM 500 MG VIAL (RESTRICTED TO ID) IVPB ONE ×3 (02:24→21:30)
[2020-09-08] MEDS ORDERED: DEXTROSE 5%-WATER 100 ML IVPB ONE ×3 (02:24→21:30)
[2020-09-08 06:02] LABS: ARTERIAL BLD GAS O2 SATURATION 98.9 mmHg (95-98); ARTERIAL BLOOD GAS BASE EXCESS -6.6 mmol/L (-2-2); ARTERIAL BLOOD GAS PO2 147.5 mmHg (80-100); ARTERIAL BLOOD GAS pH 7.396 (7.350-7.450)
[2020-09-08] MEDS: INSULIN SLIDING SCALE (NOVOLOG) 1 VIAL SQ SCH ×4 (06:02→21:52)
[2020-09-08] MEDS ORDERED: PT OWN MED DRAWER 7, Y5N ONE ×3 (06:03→14:09)
[2020-09-08 06:04] LABS: VENT MODE S/T; VENT RATE 12
[2020-09-08 06:55] LABS: BASO % 0.2 % (0-2.0); HEMATOCRIT 26.6 % (32.4-45.2); LYMPH % 5.6 % (8-40); MCH 31.1 pg (25.7-33.7); MCHC 33.9 g/dl (32.0-36.0); MEAN CELL VOLUME 91.7 fl (80-96); MEAN PLT VOLUME 9.1 fl (7.5-11.1); MONO % 2.4 % (3.8-10.2); NEUT % 91.8 % (42.8-82.8); PLATELET COUNT 149 K/MM3 (134-434); RDW 15.2 % (11.6-15.6); WHITE BLOOD COUNT 11.5 K/mm3 (4.0-10.0)
[2020-09-08 07:22] LABS: CALCIUM 8.4 mg/dL (8.5-10.1)
[2020-09-08 07:23] LABS: ALBUMIN 1.8 g/dl (3.4-5.0); BLOOD UREA NITROGEN 37.4 mg/dL (7-18); MAGNESIUM 1.3 mg/dL (1.8-2.4)
[2020-09-08 07:25] LABS: PHOSPHOROUS 4.1 mg/dL (2.5-4.9)
[2020-09-08 07:27] LABS: BILIRUBIN,TOTAL 0.3 mg/dL (0.2-1); TOT PROT 5.5 g/dl (6.4-8.2)
[2020-09-08] MEDS ORDERED: MAGNESIUM SULF 50% (8.12 MEQ/2 ML-1 GM VIAL) IVPB ONE ×2 (09:00→13:32)
[2020-09-08 09:10] LABS: SARS COV 2 AB TOTAL REACTIVE (NONREACTIVE)
[2020-09-08] MEDS: DEXAMETHASONE SOD PHOSPHATE 4 MG/1 ML VIAL IVPUSH SCH (09:59)
[2020-09-08] MEDS: THIAMINE HCL 100 MG TABLET (FP) PO SCH (09:59)
[2020-09-08] MEDS: FOLIC ACID 1 MG TABLET (FP) PO SCH (10:00)
[2020-09-08] MEDS: FERROUS SO4 325 MG TABLET (FP) PO SCH (10:00)
[2020-09-08] MEDS: POLYETHYLENE GLYCOL 3350 119 GM BTL PO SCH ×2 (10:01→21:42)
[2020-09-08 11:39] LABS: ANISOCYTOSIS 0; MACROCYTOSIS 0; PLATELET ESTIMATE DECREASED
[2020-09-08 11:52] LABS: SYPHILIS W/ RPR CONF NON-REACTIVE (NONREACTIVE)
[2020-09-08] MEDS: HEPARIN NA (PORCINE) 5,000 UNITS/ML 1ML VIAL SQ SCH ×2 (14:33→21:42)
[2020-09-08] MEDS: GABAPENTIN 300 MG CAPSULE PO SCH ×2 (14:34→21:42)
[2020-09-08] MEDS: LACTATED RINGERS SOLUTION 1,000 ML/1,000 ML INFUS.BAG IV SCH (14:36)
[2020-09-08] MEDS: MUPIROCIN 2% TOPICAL OINTMENT FOR DECOLONIZATION NS SCH ×2 (14:39→21:42)
[2020-09-08] MEDS: CLOTRIMAZOLE 1% CREAM 15 GM TUBE TP SCH (14:39)
[2020-09-08] MEDS ORDERED: REMDESIVIR 200 MG in SODIUM CHLORIDE 210 ML IVPB ONE (17:00)
[2020-09-08] MEDS: BETHANECHOL CHLORIDE 25 MG TABLET PO SCH ×2 (21:41)
[2020-09-08] MEDS: CHLORHEXIDINE GLUCONATE 4% CLEANSER FOR DECOLONIZATION TP SCH (21:42)
[2020-09-08] MEDS: ATORVASTATIN CA 10 MG TABLET (FP) PO SCH (21:42)
[2020-09-08] MEDS: FAMOTIDINE 20 MG/50 ML IVPB 20 MG/50 ML MG IVPB SCH (21:43)
[2020-09-09] MEDS ORDERED: DEXTROSE 5%-WATER 100 ML IVPB ONE ×2 (00:58→13:14)
[2020-09-09] MEDS ORDERED: MEROPENEM 500 MG VIAL (RESTRICTED TO ID) IVPB ONE ×2 (00:58→13:14)
[2020-09-09] MEDS: MEROPENEM 500 MG in DEXTROSE 5%-WATER 100 ML IVPB SCH ×2 (01:05→13:21)
[2020-09-09] MEDS ORDERED: MORPHINE SULFATE 2 MG/ML VIAL ONE (03:02)
[2020-09-09] MEDS ORDERED: MORPHINE SULFATE 2 MG/ML VIAL IVPUSH ONE (03:15)
[2020-09-09] MEDS: HEPARIN NA (PORCINE) 5,000 UNITS/ML 1ML VIAL SQ SCH ×3 (05:29→22:25)
[2020-09-09] MEDS: BETHANECHOL CHLORIDE 25 MG TABLET PO SCH ×3 (05:29→22:27)
[2020-09-09] MEDS: GABAPENTIN 300 MG CAPSULE PO SCH ×3 (05:29→22:26)
[2020-09-09] MEDS: INSULIN SLIDING SCALE (NOVOLOG) 1 VIAL SQ SCH ×4 (06:11→22:40)
[2020-09-09 07:03] LABS: BASO % 0.1 % (0-2.0); HEMATOCRIT 27.2 % (32.4-45.2); HEMOGLOBIN 9.3 GM/dL (10.7-15.3); LYMPH % 5.4 % (8-40); MCH 31.4 pg (25.7-33.7); MCHC 34.4 g/dl (32.0-36.0); MEAN CELL VOLUME 91.3 fl (80-96); MEAN PLT VOLUME 8.9 fl (7.5-11.1); NEUT % 90.5 % (42.8-82.8); PLATELET COUNT 128 K/MM3 (134-434); RBC 2.97 M/mm3 (3.60-5.2); RDW 15.3 % (11.6-15.6); WHITE BLOOD COUNT 10.9 K/mm3 (4.0-10.0)
[2020-09-09 07:15] LABS: ALBUMIN 1.8 g/dl (3.4-5.0); BLOOD UREA NITROGEN 25.8 mg/dL (7-18); CALCIUM 8.3 mg/dL (8.5-10.1); MAGNESIUM 1.6 mg/dL (1.8-2.4)
[2020-09-09 07:18] LABS: CREATININE 1.3 mg/dL (0.55-1.3); PHOSPHOROUS 3.8 mg/dL (2.5-4.9)
[2020-09-09 07:20] LABS: BILIRUBIN,TOTAL 0.3 mg/dL (0.2-1); TOT PROT 5.5 g/dl (6.4-8.2)
[2020-09-09] MEDS ORDERED: MAGNESIUM 2GM/50ML STERILE WATER IVPB IVPB ONE ×2 (08:45→10:00)
[2020-09-09] MEDS: FERROUS SO4 325 MG TABLET (FP) PO SCH (09:13)
[2020-09-09] MEDS: THIAMINE HCL 100 MG TABLET (FP) PO SCH (09:14)
[2020-09-09] MEDS: FOLIC ACID 1 MG TABLET (FP) PO SCH (09:14)
[2020-09-09] MEDS: POLYETHYLENE GLYCOL 3350 119 GM BTL PO SCH ×2 (09:15→22:26)
[2020-09-09] MEDS: MUPIROCIN 2% TOPICAL OINTMENT FOR DECOLONIZATION NS SCH ×2 (09:16→23:33)
[2020-09-09] MEDS: DEXAMETHASONE SOD PHOSPHATE 4 MG/1 ML VIAL IVPUSH SCH (09:16)
[2020-09-09] MEDS: CLOTRIMAZOLE 1% CREAM 15 GM TUBE TP SCH (09:17)
[2020-09-09 09:59] LABS: ANISOCYTOSIS 1+; MACROCYTOSIS 1+; PLATELET ESTIMATE DECREASED; TOXIC GRANULATION 2+
[2020-09-09] MEDS ORDERED: PT OWN MED DRAWER 7, Y5N ONE (13:16)
[2020-09-09] MEDS: LACTATED RINGERS SOLUTION 1,000 ML/1,000 ML INFUS.BAG IV SCH (16:28)
[2020-09-09] MEDS: ERTAPENEM SODIUM 1 GM in SODIUM CHLORIDE 50 ML IVPB SCH (16:28)
[2020-09-09] MEDS ORDERED: REMDESIVIR 100 MG in SODIUM CHLORIDE 230 ML IVPB SCH (17:00)
[2020-09-09] MEDS ORDERED: AMINO ACIDS/PROTEIN HYDROLYS 30 ML LIQUID.PKT PO SCH (17:30)
[2020-09-09] MEDS ORDERED: LACTATED RINGERS SOLUTION 1,000 ML/1,000 ML INFUS.BAG IV SCH (18:24)
[2020-09-09] MEDS: FAMOTIDINE 20 MG/50 ML IVPB 20 MG/50 ML MG IVPB SCH (22:26)
[2020-09-09] MEDS: ATORVASTATIN CA 10 MG TABLET (FP) PO SCH (22:26)
[2020-09-09] MEDS: CHLORHEXIDINE GLUCONATE 4% CLEANSER FOR DECOLONIZATION TP SCH (23:33)
[2020-09-10] MEDS: DEXTROSE 5%-LACTATED RINGERS 1,000 ML IV SCH ×2 (00:03→22:35)
[2020-09-10] MEDS: GABAPENTIN 300 MG CAPSULE PO SCH ×3 (06:00→22:35)
[2020-09-10] MEDS: BETHANECHOL CHLORIDE 25 MG TABLET PO SCH ×3 (06:00→22:35)
[2020-09-10] MEDS: HEPARIN NA (PORCINE) 5,000 UNITS/ML 1ML VIAL SQ SCH ×3 (06:00→22:32)
[2020-09-10] MEDS: INSULIN SLIDING SCALE (NOVOLOG) 1 VIAL SQ SCH ×4 (06:21→22:35)
[2020-09-10] MEDS ORDERED: PT OWN MED DRAWER 7, Y5N ONE ×4 (06:54→13:15)
[2020-09-10 07:20] LABS: BASO % 0.2 % (0-2.0); HEMATOCRIT 27.9 % (32.4-45.2); HEMOGLOBIN 9.8 GM/dL (10.7-15.3); LYMPH % 5.5 % (8-40); MCH 31.7 pg (25.7-33.7); MCHC 35.1 g/dl (32.0-36.0); MEAN CELL VOLUME 90.4 fl (80-96); MEAN PLT VOLUME 8.8 fl (7.5-11.1); MONO % 4.3 % (3.8-10.2); PLATELET COUNT 129 K/MM3 (134-434); RBC 3.09 M/mm3 (3.60-5.2); WHITE BLOOD COUNT 10.7 K/mm3 (4.0-10.0)
[2020-09-10 07:26] LABS: CALCIUM 8.3 mg/dL (8.5-10.1)
[2020-09-10 07:27] LABS: ALBUMIN 1.8 g/dl (3.4-5.0); BLOOD UREA NITROGEN 29.1 mg/dL (7-18); MAGNESIUM 1.7 mg/dL (1.8-2.4)
[2020-09-10 07:30] LABS: BILIRUBIN,TOTAL 0.4 mg/dL (0.2-1); CREATININE 1.1 mg/dL (0.55-1.3); PHOSPHOROUS 3.2 mg/dL (2.5-4.9); TOT PROT 5.2 g/dl (6.4-8.2)
[2020-09-10] MEDS: AMINO ACIDS/PROTEIN HYDROLYS 30 ML LIQUID.PKT PO SCH ×2 (09:29→17:03)
[2020-09-10] MEDS: DEXAMETHASONE SOD PHOSPHATE 4 MG/1 ML VIAL IVPUSH SCH (09:30)
[2020-09-10 09:31] LABS: ANISOCYTOSIS 1+; MACROCYTOSIS 0; PLATELET ESTIMATE DECREASED
[2020-09-10] MEDS: FERROUS SO4 325 MG TABLET (FP) PO SCH (09:31)
[2020-09-10] MEDS: FOLIC ACID 1 MG TABLET (FP) PO SCH (09:31)
[2020-09-10] MEDS: THIAMINE HCL 100 MG TABLET (FP) PO SCH (09:32)
[2020-09-10] MEDS: CLOTRIMAZOLE 1% CREAM 15 GM TUBE TP SCH (09:42)
[2020-09-10] MEDS: ERTAPENEM SODIUM 1 GM in SODIUM CHLORIDE 50 ML IVPB SCH (09:52)
[2020-09-10] MEDS: POLYETHYLENE GLYCOL 3350 119 GM BTL PO SCH ×2 (09:53→22:34)
[2020-09-10] MEDS ORDERED: MAGNESIUM 2GM/50ML STERILE WATER IVPB IVPB ONE (13:00)
[2020-09-10] MEDS: REMDESIVIR 100 MG in SODIUM CHLORIDE 230 ML IVPB SCH (16:55)
[2020-09-10] MEDS: ATORVASTATIN CA 10 MG TABLET (FP) PO SCH (22:34)
[2020-09-10] MEDS: FAMOTIDINE 20 MG/50 ML IVPB 20 MG/50 ML MG IVPB SCH (22:35)
[2020-09-11] MEDS: HEPARIN NA (PORCINE) 5,000 UNITS/ML 1ML VIAL SQ SCH ×3 (06:03→21:47)
[2020-09-11] MEDS: GABAPENTIN 300 MG CAPSULE PO SCH ×3 (06:04→21:48)
[2020-09-11] MEDS: BETHANECHOL CHLORIDE 25 MG TABLET PO SCH ×3 (06:04→21:48)
[2020-09-11] MEDS: INSULIN SLIDING SCALE (NOVOLOG) 1 VIAL SQ SCH ×4 (06:25→22:10)
[2020-09-11 08:11] LABS: BASO % 0.6 % (0-2.0); HEMATOCRIT 28.3 % (32.4-45.2); HEMOGLOBIN 9.7 GM/dL (10.7-15.3); LYMPH % 3.5 % (8-40); MCH 31.3 pg (25.7-33.7); MCHC 34.2 g/dl (32.0-36.0); MEAN CELL VOLUME 91.3 fl (80-96); MEAN PLT VOLUME 8.8 fl (7.5-11.1); MONO % 1.8 % (3.8-10.2); NEUT % 94.1 % (42.8-82.8); PLATELET COUNT 161 K/MM3 (134-434); RDW 15.2 % (11.6-15.6); WHITE BLOOD COUNT 13.8 K/mm3 (4.0-10.0)
[2020-09-11] MEDS: AMINO ACIDS/PROTEIN HYDROLYS 30 ML LIQUID.PKT PO SCH ×2 (08:35→16:54)
[2020-09-11] MEDS ORDERED: PT OWN MED DRAWER 7, Y5N ONE ×5 (08:35→21:27)
[2020-09-11 08:41] LABS: ALBUMIN 1.8 g/dl (3.4-5.0); BLOOD UREA NITROGEN 37.4 mg/dL (7-18); CALCIUM 8.1 mg/dL (8.5-10.1)
[2020-09-11 08:45] LABS: CREATININE 1.2 mg/dL (0.55-1.3)
[2020-09-11 08:46] LABS: ANISOCYTOSIS 0; BILIRUBIN,TOTAL 0.4 mg/dL (0.2-1); MACROCYTOSIS 1+; PLATELET ESTIMATE NORMAL; TOT PROT 5.2 g/dl (6.4-8.2)
[2020-09-11] MEDS: DEXAMETHASONE SOD PHOSPHATE 4 MG/1 ML VIAL IVPUSH SCH (09:03)
[2020-09-11] MEDS: FOLIC ACID 1 MG TABLET (FP) PO SCH (09:04)
[2020-09-11] MEDS: FERROUS SO4 325 MG TABLET (FP) PO SCH (09:04)
[2020-09-11] MEDS: THIAMINE HCL 100 MG TABLET (FP) PO SCH (09:04)
[2020-09-11] MEDS: CLOTRIMAZOLE 1% CREAM 15 GM TUBE TP SCH (09:05)
[2020-09-11] MEDS: POLYETHYLENE GLYCOL 3350 119 GM BTL PO SCH ×2 (09:05→21:48)
[2020-09-11] MEDS: ERTAPENEM SODIUM 1 GM in SODIUM CHLORIDE 50 ML IVPB SCH (10:19)
[2020-09-11] MEDS: KCL 10 MEQ IVPB 10 MEQ/100 ML INFUS.BAG IVPB SCH ×3 (11:03→13:06)
[2020-09-11] MEDS: REMDESIVIR 100 MG in SODIUM CHLORIDE 230 ML IVPB SCH (16:54)
[2020-09-11] MEDS: ATORVASTATIN CA 10 MG TABLET (FP) PO SCH (21:47)
[2020-09-11] MEDS: FAMOTIDINE 20 MG/50 ML IVPB 20 MG/50 ML MG IVPB SCH (21:47)
[2020-09-12] MEDS: DEXTROSE 5%-LACTATED RINGERS 1,000 ML IV SCH ×2 (06:07→12:30)
[2020-09-12] MEDS: BETHANECHOL CHLORIDE 25 MG TABLET PO SCH ×3 (06:08→21:44)
[2020-09-12] MEDS: INSULIN SLIDING SCALE (NOVOLOG) 1 VIAL SQ SCH ×4 (06:08→22:09)
[2020-09-12] MEDS: HEPARIN NA (PORCINE) 5,000 UNITS/ML 1ML VIAL SQ SCH ×3 (06:08→21:43)
[2020-09-12] MEDS: GABAPENTIN 300 MG CAPSULE PO SCH ×3 (06:08→21:44)
[2020-09-12 08:26] LABS: BASO % 0.3 % (0-2.0); HEMATOCRIT 31.9 % (32.4-45.2); HEMOGLOBIN 10.7 GM/dL (10.7-15.3); LYMPH % 2.9 % (8-40); MCHC 33.6 g/dl (32.0-36.0); MEAN CELL VOLUME 92.1 fl (80-96); MEAN PLT VOLUME 8.8 fl (7.5-11.1); MONO % 0.7 % (3.8-10.2); NEUT % 96.1 % (42.8-82.8); PLATELET COUNT 174 K/MM3 (134-434); RBC 3.46 M/mm3 (3.60-5.2); RDW 15.3 % (11.6-15.6); WHITE BLOOD COUNT 19.3 K/mm3 (4.0-10.0)
[2020-09-12 08:37] LABS: CHLORIDE 104 mmol/L (98-107); SODIUM 142 mmol/L (136-145)
[2020-09-12 08:45] LABS: CALCIUM 8.2 mg/dL (8.5-10.1)
[2020-09-12 08:47] LABS: ALBUMIN 1.9 g/dl (3.4-5.0); CO2 30 mmol/L (21-32); GLUCOSE,RANDOM 244 mg/dL (74-106); SGPT/ALT 27 U/L (13-61)
[2020-09-12 08:48] LABS: BILIRUBIN,TOTAL 0.6 mg/dL (0.2-1)
[2020-09-12 08:50] LABS: SGOT/AST 39 U/L (15-37); TOT PROT 5.6 g/dl (6.4-8.2)
[2020-09-12 09:04] LABS: ALK PHOS 323 U/L (45-117); ANION GAP 8 MMOL/L (8-16)
[2020-09-12] MEDS ORDERED: POTASSIUM CHLORIDE TABS 10 MEQ TABLET.ER (FP) PO ONE (09:45)
[2020-09-12 09:57] LABS: ANISOCYTOSIS 0; MACROCYTOSIS 0; PLATELET ESTIMATE NORMAL
[2020-09-12] MEDS: AMINO ACIDS/PROTEIN HYDROLYS 30 ML LIQUID.PKT PO SCH ×2 (10:43→16:50)
[2020-09-12] MEDS: ERTAPENEM SODIUM 1 GM in SODIUM CHLORIDE 50 ML IVPB SCH (10:44)
[2020-09-12] MEDS: DEXAMETHASONE SOD PHOSPHATE 4 MG/1 ML VIAL IVPUSH SCH (10:45)
[2020-09-12] MEDS: THIAMINE HCL 100 MG TABLET (FP) PO SCH (10:46)
[2020-09-12] MEDS: FERROUS SO4 325 MG TABLET (FP) PO SCH (10:47)
[2020-09-12] MEDS: FOLIC ACID 1 MG TABLET (FP) PO SCH (10:47)
[2020-09-12] MEDS: POLYETHYLENE GLYCOL 3350 119 GM BTL PO SCH ×2 (10:47→21:43)
[2020-09-12] MEDS: CLOTRIMAZOLE 1% CREAM 15 GM TUBE TP SCH (10:47)
[2020-09-12] MEDS: KCL 10 MEQ IVPB 10 MEQ/100 ML INFUS.BAG IVPB SCH ×3 (12:22→14:24)
[2020-09-12] MEDS ORDERED: PT OWN MED DRAWER 7, Y5N ONE (13:07)
[2020-09-12] MEDS: REMDESIVIR 100 MG in SODIUM CHLORIDE 230 ML IVPB SCH (16:50)
[2020-09-12] MEDS ORDERED: POTASSIUM CHLORIDE TABS 20 MEQ TABLET.ER (FP) PO ONE (19:00)
[2020-09-12] MEDS: ATORVASTATIN CA 10 MG TABLET (FP) PO SCH (21:43)
[2020-09-12] MEDS: FAMOTIDINE 20 MG/50 ML IVPB 20 MG/50 ML MG IVPB SCH (21:44)
[2020-09-12] MEDS ORDERED: LORazepam 1 MG TABLET PO ONE (21:54)
[2020-09-12] MEDS ORDERED: ACETYLCYSTEINE 20% 200MG/ML 4 ML VIAL *FOR ORAL / INH USE ONLY IH ONE (21:54)
[2020-09-13] MEDS: DEXTROSE 5%-LACTATED RINGERS 1,000 ML IV SCH ×2 (01:46→08:20)
[2020-09-13] MEDS ORDERED: PT OWN MED DRAWER 7, Y5N ONE ×4 (05:25→22:43)
[2020-09-13] MEDS: BETHANECHOL CHLORIDE 25 MG TABLET PO SCH ×3 (05:26→23:02)
[2020-09-13] MEDS: HEPARIN NA (PORCINE) 5,000 UNITS/ML 1ML VIAL SQ SCH ×3 (05:26→23:05)
[2020-09-13] MEDS: GABAPENTIN 300 MG CAPSULE PO SCH ×3 (05:26→23:04)
[2020-09-13] MEDS ORDERED: LORazepam 1 MG TABLET PO ONE (05:53)
[2020-09-13] MEDS: INSULIN SLIDING SCALE (NOVOLOG) 1 VIAL SQ SCH ×4 (06:57→23:01)
[2020-09-13] MEDS: AMINO ACIDS/PROTEIN HYDROLYS 30 ML LIQUID.PKT PO SCH ×2 (08:51→17:41)
[2020-09-13] MEDS ORDERED: POTASSIUM CHLORIDE TABS 20 MEQ TABLET.ER (FP) PO ONE (08:56)
[2020-09-13] MEDS ORDERED: KCL 10 MEQ IVPB 10 MEQ/100 ML INFUS.BAG IVPB SCH (09:00)
[2020-09-13 09:32] LABS: BASO % 0.3 % (0-2.0); HEMATOCRIT 31.5 % (32.4-45.2); HEMOGLOBIN 10.4 GM/dL (10.7-15.3); LYMPH % 2.5 % (8-40); MCHC 33.2 g/dl (32.0-36.0); MEAN CELL VOLUME 93.4 fl (80-96); MEAN PLT VOLUME 8.8 fl (7.5-11.1); MONO % 1.1 % (3.8-10.2); NEUT % 96.1 % (42.8-82.8); PLATELET COUNT 122 K/MM3 (134-434); RBC 3.37 M/mm3 (3.60-5.2); RDW 15.9 % (11.6-15.6); WHITE BLOOD COUNT 15.1 K/mm3 (4.0-10.0)
[2020-09-13 09:59] LABS: ALBUMIN 1.9 g/dl (3.4-5.0); BILIRUBIN,TOTAL 0.7 mg/dL (0.2-1)
[2020-09-13 10:01] LABS: BLOOD UREA NITROGEN 37.8 mg/dL (7-18)
[2020-09-13 10:03] LABS: TOT PROT 5.5 g/dl (6.4-8.2)
[2020-09-13] MEDS: THIAMINE HCL 100 MG TABLET (FP) PO SCH (10:26)
[2020-09-13] MEDS: FOLIC ACID 1 MG TABLET (FP) PO SCH (10:27)
[2020-09-13] MEDS: ERTAPENEM SODIUM 1 GM in SODIUM CHLORIDE 50 ML IVPB SCH (10:27)
[2020-09-13] MEDS: FERROUS SO4 325 MG TABLET (FP) PO SCH (10:27)
[2020-09-13] MEDS: POLYETHYLENE GLYCOL 3350 119 GM BTL PO SCH ×2 (10:27→22:38)
[2020-09-13] MEDS: DEXAMETHASONE SOD PHOSPHATE 4 MG/1 ML VIAL IVPUSH SCH (10:27)
[2020-09-13] MEDS: NYSTATIN 500,000 UNITS/5 ML SUSPENSION PO SCH ×3 (12:00→23:03)
[2020-09-13] MEDS: CLOTRIMAZOLE 1% CREAM 15 GM TUBE TP SCH (12:14)
[2020-09-13 13:08] LABS: ANISOCYTOSIS 1+; MACROCYTOSIS 0; OVALOCYTE 1+; PLATELET ESTIMATE DECREASED; TEAR DROP CELLS 1+
[2020-09-13] MEDS: LORazepam 1 MG TABLET PO PRN ×2 (13:42→23:03)
[2020-09-13] MEDS ORDERED: POTASSIUM CHLORIDE 20 MEQ in DEXTROSE 5%-WATER - 1,000 ML IV SCH (15:00)
[2020-09-13] MEDS: ATORVASTATIN CA 10 MG TABLET (FP) PO SCH (23:03)
[2020-09-13] MEDS: FAMOTIDINE 20 MG/50 ML IVPB 20 MG/50 ML MG IVPB SCH (23:04)
[2020-09-14] MEDS ORDERED: ALBUTEROL SO4 HFA INHALER IH ONE (00:34)
[2020-09-14] MEDS ORDERED: ALBUTEROL SO4 HFA INHALER IH PRN ×2 (00:45→03:53)
[2020-09-14] MEDS ORDERED: FUROSEMIDE 40 MG/4 ML INJECTABLE VIAL IVPUSH ONE (00:58)
[2020-09-14] MEDS ORDERED: RAPID SEQUENCE INTUBATION KIT NR ONE (02:41)
[2020-09-14] MEDS ORDERED: FENTANYL NS IVPB 500 MCG/100 ML BAG IVPB ONE (03:31)
[2020-09-14] MEDS ORDERED: PROPOFOL 1,000,000 MCG/100 ML VIAL ONE (03:31)
[2020-09-14] MEDS ORDERED: LORazepam 1 MG TABLET PO PRN (03:53)
[2020-09-14] MEDS ORDERED: ACETYLCYSTEINE 20% 200MG/ML 4 ML VIAL *FOR ORAL / INH USE ONLY IH ONE (03:53)
[2020-09-14] MEDS ORDERED: MIDAZOLAM 100 MG/100 ML MG IVPB ONE (04:22)
[2020-09-14] MEDS: PROPOFOL 1,000,000 MCG/100 ML VIAL IVPB SCH (04:40)
[2020-09-14] MEDS: FENTANYL NS IVPB 500 MCG/100 ML BAG IVPB SCH ×2 (04:40→17:53)
[2020-09-14] MEDS: MIDAZOLAM 100 MG/100 ML MG IVPB SCH ×2 (04:40→18:50)
[2020-09-14 04:54] LABS: ARTERIAL BLD GAS O2 SATURATION 97.1 mmHg (95-98); ARTERIAL BLOOD GAS BASE EXCESS 0.5 mmol/L (-2-2); ARTERIAL BLOOD GAS PO2 95.7 mmHg (80-100); ARTERIAL BLOOD GAS pH 7.369 (7.350-7.450)
[2020-09-14 04:57] LABS: ALLENS TEST POSITIVE
[2020-09-14 04:58] LABS: VENT MODE A/C; VENT RATE 18
[2020-09-14] MEDS ORDERED: NYSTATIN 500,000 UNITS/5 ML SUSPENSION PO SCH (06:00)
[2020-09-14] MEDS ORDERED: BETHANECHOL CHLORIDE 25 MG TABLET PO SCH (06:00)
[2020-09-14] MEDS ORDERED: GABAPENTIN 300 MG CAPSULE PO SCH (06:00)
[2020-09-14] MEDS: HEPARIN NA (PORCINE) 5,000 UNITS/ML 1ML VIAL SQ SCH ×3 (06:52→22:41)
[2020-09-14] MEDS: INSULIN SLIDING SCALE (NOVOLOG) 1 VIAL SQ SCH ×4 (07:01→23:19)
[2020-09-14] MEDS ORDERED: ACETAMINOPHEN 1000 MG/100 ML VIAL (NON FORMULARY) IVPB PRN (07:03)
[2020-09-14 07:11] LABS: HEMATOCRIT 28.6 % (32.4-45.2); HEMOGLOBIN 9.3 GM/dL (10.7-15.3); MCH 31.1 pg (25.7-33.7); MCHC 32.7 g/dl (32.0-36.0); MEAN CELL VOLUME 95.3 fl (80-96); MEAN PLT VOLUME 9.3 fl (7.5-11.1); PLATELET COUNT 91 K/MM3 (134-434); RDW 16.4 % (11.6-15.6); WHITE BLOOD COUNT 9.7 K/mm3 (4.0-10.0)
[2020-09-14 07:25] LABS: ALBUMIN 1.5 g/dl (3.4-5.0); BLOOD UREA NITROGEN 38.3 mg/dL (7-18); CALCIUM 7.4 mg/dL (8.5-10.1)
[2020-09-14 07:28] LABS: CREATININE 1.2 mg/dL (0.55-1.3); PHOSPHOROUS 4.4 mg/dL (2.5-4.9)
[2020-09-14 07:29] LABS: TOT PROT 4.8 g/dl (6.4-8.2)
[2020-09-14] MEDS: KCL 10 MEQ IVPB 10 MEQ/100 ML INFUS.BAG IVPB SCH ×3 (07:32→10:00)
[2020-09-14] MEDS ORDERED: PT OWN MED DRAWER 7, Y5N ONE ×4 (07:54→22:30)
[2020-09-14] MEDS ORDERED: AMINO ACIDS/PROTEIN HYDROLYS 30 ML LIQUID.PKT PO SCH (08:00)
[2020-09-14] MEDS ORDERED: NOREPINEPHRINE NS PREMIX 8,000 MCG/500 ML BAG IVPB SCH (08:15)
[2020-09-14] MEDS ORDERED: NOREPINEPHRINE D5W PREMIX 16,000 MCG/500 ML BAG IVPB ONE (08:24)
[2020-09-14] MEDS ORDERED: MAGNESIUM SULF 50% (8.12 MEQ/2 ML-1 GM VIAL) IVPB ONE (08:28)
[2020-09-14] MEDS: NOREPINEPHRINE BITARTRATE 16,000 MCG in SODIUM CHLORIDE 484 ML IV SCH (08:43)
[2020-09-14] MEDS ORDERED: AMINO ACIDS/PROTEIN HYDROLYS 30 ML LIQUID.PKT GT SCH (09:10)
[2020-09-14] MEDS ORDERED: THIAMINE HCL 100 MG TABLET (FP) PO SCH (10:00)
[2020-09-14] MEDS ORDERED: POLYETHYLENE GLYCOL 3350 119 GM BTL PO SCH (10:00)
[2020-09-14] MEDS ORDERED: FOLIC ACID 1 MG TABLET (FP) PO SCH (10:00)
[2020-09-14] MEDS ORDERED: FERROUS SO4 325 MG TABLET (FP) PO SCH (10:00)
[2020-09-14] MEDS ORDERED: DEXAMETHASONE SOD PHOSPHATE 4 MG/1 ML VIAL IVPUSH SCH (10:00)
[2020-09-14] MEDS: MUPIROCIN 2% TOPICAL OINTMENT FOR DECOLONIZATION NS SCH ×2 (10:17→22:41)
[2020-09-14] MEDS: FOLIC ACID 1 MG TABLET (FP) GT SCH (10:18)
[2020-09-14] MEDS: FERROUS SO4 300 MG/5 ML ORAL SOLN UNIT DOSE CUPS GT SCH (10:18)
[2020-09-14] MEDS: CLOTRIMAZOLE 1% CREAM 15 GM TUBE TP SCH (10:18)
[2020-09-14] MEDS: THIAMINE HCL 100 MG TABLET (FP) NGT SCH (10:19)
[2020-09-14] MEDS: POLYETHYLENE GLYCOL 3350 119 GM BTL GT SCH ×2 (10:19→22:40)
[2020-09-14] MEDS: ERTAPENEM SODIUM 1 GM in SODIUM CHLORIDE 50 ML IVPB SCH (10:23)
[2020-09-14] MEDS: NYSTATIN 500,000 UNITS/5 ML SUSPENSION GT SCH ×2 (11:05→17:49)
[2020-09-14] MEDS: GABAPENTIN 250 MG/5 ML ORAL SOLUTION, 470 ML BOTTLE GT SCH ×2 (14:01→22:40)
[2020-09-14] MEDS: BETHANECHOL CHLORIDE 25 MG TABLET GT SCH ×3 (14:06→22:40)
[2020-09-14] MEDS ORDERED: POTASSIUM CHLORIDE 20 MEQ in DEXTROSE 5%-WATER - 1,000 ML IV SCH ×3 (15:00→16:32)
[2020-09-14] MEDS ORDERED: VANCOMYCIN 1 GRAM (PRE-DOCKED) 1,000 MG/250 ML BAG IVPB ONE (15:34)
[2020-09-14] MEDS ORDERED: TOCILIZUMAB (ACTEMRA) 200 MG/10 ML VIAL IVPB ONE (16:00)
[2020-09-14] MEDS ORDERED: TOCILIZUMAB IVPB ONE (17:30)
[2020-09-14] MEDS ORDERED: SODIUM CHLORIDE IVPB ONE (17:30)
[2020-09-14 17:46] LABS: EPI CELLS >36 /uL (0-25.1); HYALINE CASTS 23 /uL (0-3.1); URINE APPEARANCE TURBID; URINE BACTERIA 145 /uL (0-1359); URINE BILIRUBIN NEGATIVE (NEGATIVE); URINE COLOR YELLOW; URINE GLUCOSE (UA) 2+ (NEGATIVE); URINE KETONE NEGATIVE (NEGATIVE); URINE LEUK ESTERASE NEGATIVE (NEGATIVE); URINE NITRITE NEGATIVE (NEGATIVE); URINE PROTEIN 2+ (NEGATIVE); URINE RBC 230 /uL (0-23.9); URINE UROBILINOGEN 0.2 mg/dL (0.2-1.0)
[2020-09-14 18:53] LABS: URINE WBC 65.6 /uL (0-25.8)
[2020-09-14 18:54] LABS: URINE CRYSTALS FEW /hpf
[2020-09-14] MEDS: ATORVASTATIN CA 10 MG TABLET (FP) GT SCH (22:40)
[2020-09-14] MEDS: DEXAMETHASONE SOD PHOSPHATE 4 MG/1 ML VIAL IVPUSH SCH (22:41)
[2020-09-14] MEDS: CHLORHEXIDINE GLUCONATE 4% CLEANSER FOR DECOLONIZATION TP SCH (22:41)
[2020-09-14] MEDS: FAMOTIDINE 20 MG/50 ML IVPB 20 MG/50 ML MG IVPB SCH (22:41)
[2020-09-15] MEDS: NYSTATIN 500,000 UNITS/5 ML SUSPENSION GT SCH ×4 (01:31→18:23)
[2020-09-15] MEDS: MIDAZOLAM 100 MG/100 ML MG IVPB SCH ×2 (05:07→10:18)
[2020-09-15] MEDS: PROPOFOL 1,000,000 MCG/100 ML VIAL IVPB SCH (05:07)
[2020-09-15] MEDS: GABAPENTIN 250 MG/5 ML ORAL SOLUTION, 470 ML BOTTLE GT SCH ×3 (05:57→22:15)
[2020-09-15] MEDS: BETHANECHOL CHLORIDE 25 MG TABLET GT SCH ×3 (05:57→22:45)
[2020-09-15] MEDS: HEPARIN NA (PORCINE) 5,000 UNITS/ML 1ML VIAL SQ SCH ×3 (05:57→22:15)
[2020-09-15] MEDS: FENTANYL NS IVPB 500 MCG/100 ML BAG IVPB SCH ×2 (05:57→10:18)
[2020-09-15] MEDS: INSULIN SLIDING SCALE (NOVOLOG) 1 VIAL SQ SCH ×4 (06:03→22:16)
[2020-09-15 07:31] LABS: BASO % 0.2 % (0-2.0); HEMATOCRIT 24.1 % (32.4-45.2); HEMOGLOBIN 7.8 GM/dL (10.7-15.3); LYMPH % 1.9 % (8-40); MCH 30.9 pg (25.7-33.7); MCHC 32.2 g/dl (32.0-36.0); MEAN CELL VOLUME 95.9 fl (80-96); MEAN PLT VOLUME 9.7 fl (7.5-11.1); NEUT % 95.9 % (42.8-82.8); PLATELET COUNT 80 K/MM3 (134-434); RBC 2.52 M/mm3 (3.60-5.2); RDW 16.3 % (11.6-15.6); WHITE BLOOD COUNT 10.4 K/mm3 (4.0-10.0)
[2020-09-15 07:57] LABS: CREATININE 1.2 mg/dL (0.55-1.3)
[2020-09-15 07:58] LABS: CALCIUM 7.7 mg/dL (8.5-10.1); MAGNESIUM 1.7 mg/dL (1.8-2.4); TOT PROT 4.5 g/dl (6.4-8.2)
[2020-09-15 07:59] LABS: ALBUMIN 1.3 g/dl (3.4-5.0); PHOSPHOROUS 4.3 mg/dL (2.5-4.9)
[2020-09-15 08:05] LABS: BILIRUBIN,TOTAL 0.4 mg/dL (0.2-1)
[2020-09-15] MEDS ORDERED: MAGNESIUM 1GM/D5W 100ML - 100 ML IVPB IVPB ONE (09:00)
[2020-09-15] MEDS ORDERED: PT OWN MED DRAWER 7, Y5N ONE ×2 (09:25→10:43)
[2020-09-15] MEDS: NOREPINEPHRINE BITARTRATE 16,000 MCG in SODIUM CHLORIDE 484 ML IV SCH (10:09)
[2020-09-15] MEDS: AMINO ACIDS/PROTEIN HYDROLYS 30 ML LIQUID.PKT GT SCH (10:09)
[2020-09-15] MEDS: FERROUS SO4 300 MG/5 ML ORAL SOLN UNIT DOSE CUPS GT SCH (10:15)
[2020-09-15] MEDS: THIAMINE HCL 100 MG TABLET (FP) NGT SCH (10:19)
[2020-09-15] MEDS: FOLIC ACID 1 MG TABLET (FP) GT SCH (10:20)
[2020-09-15] MEDS: DEXAMETHASONE SOD PHOSPHATE 4 MG/1 ML VIAL IVPUSH SCH ×2 (10:21→22:15)
[2020-09-15] MEDS: ERTAPENEM SODIUM 1 GM in SODIUM CHLORIDE 50 ML IVPB SCH (10:22)
[2020-09-15 10:35] LABS: ANISOCYTOSIS 2+; MACROCYTOSIS 1+; PLATELET ESTIMATE DECREASED; ROULEAU 2+
[2020-09-15] MEDS: CLOTRIMAZOLE 1% CREAM 15 GM TUBE TP SCH (10:35)
[2020-09-15] MEDS: MUPIROCIN 2% TOPICAL OINTMENT FOR DECOLONIZATION NS SCH ×2 (10:35→22:15)
[2020-09-15] MEDS: POLYETHYLENE GLYCOL 3350 119 GM BTL GT SCH ×2 (10:36→22:15)
[2020-09-15 18:55] LABS: HEMATOCRIT 23.3 % (32.4-45.2); HEMOGLOBIN 7.4 GM/dL (10.7-15.3); MCH 30.2 pg (25.7-33.7); MCHC 31.6 g/dl (32.0-36.0); MEAN CELL VOLUME 95.6 fl (80-96); MEAN PLT VOLUME 9.9 fl (7.5-11.1); PLATELET COUNT 74 K/MM3 (134-434); RBC 2.44 M/mm3 (3.60-5.2); WHITE BLOOD COUNT 11.2 K/mm3 (4.0-10.0)
[2020-09-15] MEDS: ATORVASTATIN CA 10 MG TABLET (FP) GT SCH (22:15)
[2020-09-15] MEDS: CHLORHEXIDINE GLUCONATE 4% CLEANSER FOR DECOLONIZATION TP SCH (22:15)
[2020-09-15] MEDS: FAMOTIDINE 20 MG/50 ML IVPB 20 MG/50 ML MG IVPB SCH (22:16)
[2020-09-15] MEDS ORDERED: ATROPINE SULFATE 1 MG/10 ML DISP.SYRIN IVPUSH ONE (22:46)
[2020-09-15] MEDS ORDERED: ATROPINE SULFATE 1 MG/10 ML DISP.SYRIN ONE (22:47)
[2020-09-15 23:09] LABS: HEMATOCRIT 22.9 % (32.4-45.2); HEMOGLOBIN 7.2 GM/dL (10.7-15.3); MCH 30.1 pg (25.7-33.7); MCHC 31.3 g/dl (32.0-36.0); MEAN CELL VOLUME 96.1 fl (80-96); MEAN PLT VOLUME 9.6 fl (7.5-11.1); PLATELET COUNT 73 K/MM3 (134-434); RBC 2.39 M/mm3 (3.60-5.2); RDW 16.2 % (11.6-15.6); WHITE BLOOD COUNT 11.5 K/mm3 (4.0-10.0)
[2020-09-16] MEDS: NYSTATIN 500,000 UNITS/5 ML SUSPENSION GT SCH ×4 (00:54→17:29)
[2020-09-16] MEDS: GABAPENTIN 250 MG/5 ML ORAL SOLUTION, 470 ML BOTTLE GT SCH ×3 (06:39→22:50)
[2020-09-16] MEDS: HEPARIN NA (PORCINE) 5,000 UNITS/ML 1ML VIAL SQ SCH ×3 (06:39→22:19)
[2020-09-16] MEDS: BETHANECHOL CHLORIDE 25 MG TABLET GT SCH ×3 (06:40→22:50)
[2020-09-16] MEDS: INSULIN SLIDING SCALE (NOVOLOG) 1 VIAL SQ SCH ×4 (06:40→22:50)
[2020-09-16] MEDS: FENTANYL NS IVPB 500 MCG/100 ML BAG IVPB SCH ×2 (06:40→13:42)
[2020-09-16] MEDS: MIDAZOLAM 100 MG/100 ML MG IVPB SCH (06:40)
[2020-09-16] MEDS: PROPOFOL 1,000,000 MCG/100 ML VIAL IVPB SCH (06:41)
[2020-09-16 07:11] LABS: HEMATOCRIT 23.1 % (32.4-45.2); HEMOGLOBIN 7.5 GM/dL (10.7-15.3); MCH 30.6 pg (25.7-33.7); MCHC 32.7 g/dl (32.0-36.0); MEAN CELL VOLUME 93.6 fl (80-96); MEAN PLT VOLUME 9.9 fl (7.5-11.1); PLATELET COUNT 81 K/MM3 (134-434); RBC 2.46 M/mm3 (3.60-5.2); WHITE BLOOD COUNT 12.5 K/mm3 (4.0-10.0)
[2020-09-16 07:32] LABS: CHLORIDE 107 mmol/L (98-107); SODIUM 139 mmol/L (136-145)
[2020-09-16 07:39] LABS: CALCIUM 8.1 mg/dL (8.5-10.1)
[2020-09-16 07:41] LABS: ALBUMIN 1.3 g/dl (3.4-5.0); ANION GAP 5 MMOL/L (8-16); BLOOD UREA NITROGEN 43.4 mg/dL (7-18); CO2 27 mmol/L (21-32); GLUCOSE,RANDOM 228 mg/dL (74-106); MAGNESIUM 1.8 mg/dL (1.8-2.4)
[2020-09-16 07:44] LABS: SGOT/AST 27 U/L (15-37); SGPT/ALT 16 U/L (13-61)
[2020-09-16 07:45] LABS: BILIRUBIN,TOTAL 0.2 mg/dL (0.2-1); LDH 445 U/L (84-246); TOT PROT 4.4 g/dl (6.4-8.2)
[2020-09-16 07:51] LABS: ALK PHOS 339 U/L (45-117)
[2020-09-16] MEDS: AMINO ACIDS/PROTEIN HYDROLYS 30 ML LIQUID.PKT GT SCH (09:04)
[2020-09-16] MEDS: NOREPINEPHRINE BITARTRATE 16,000 MCG in SODIUM CHLORIDE 484 ML IV SCH (09:04)
[2020-09-16] MEDS ORDERED: PT OWN MED DRAWER 7, Y5N ONE ×4 (09:42→21:35)
[2020-09-16] MEDS: MUPIROCIN 2% TOPICAL OINTMENT FOR DECOLONIZATION NS SCH ×2 (09:47→22:19)
[2020-09-16] MEDS: DEXAMETHASONE SOD PHOSPHATE 4 MG/1 ML VIAL IVPUSH SCH ×2 (09:47→22:19)
[2020-09-16] MEDS: POLYETHYLENE GLYCOL 3350 119 GM BTL GT SCH ×2 (09:48→22:20)
[2020-09-16] MEDS: CLOTRIMAZOLE 1% CREAM 15 GM TUBE TP SCH (09:48)
[2020-09-16] MEDS: FOLIC ACID 1 MG TABLET (FP) GT SCH (09:48)
[2020-09-16] MEDS: ERTAPENEM SODIUM 1 GM in SODIUM CHLORIDE 50 ML IVPB SCH (09:48)
[2020-09-16] MEDS: FERROUS SO4 300 MG/5 ML ORAL SOLN UNIT DOSE CUPS GT SCH (09:48)
[2020-09-16] MEDS: THIAMINE HCL 100 MG TABLET (FP) NGT SCH (09:49)
[2020-09-16 16:08] LABS: HEP B CORE AB, TOT Negative (Negative)
[2020-09-16] MEDS: CHLORHEXIDINE GLUCONATE 4% CLEANSER FOR DECOLONIZATION TP SCH (22:19)
[2020-09-16] MEDS: FAMOTIDINE 20 MG/50 ML IVPB 20 MG/50 ML MG IVPB SCH (22:20)
[2020-09-16] MEDS: ATORVASTATIN CA 10 MG TABLET (FP) GT SCH (22:20)
[2020-09-16] MEDS ORDERED: ATROPINE SULFATE 1 MG/10 ML DISP.SYRIN IVPUSH ONE (22:26)
[2020-09-17] MEDS: NYSTATIN 500,000 UNITS/5 ML SUSPENSION GT SCH ×4 (00:14→18:20)
[2020-09-17] MEDS: HEPARIN NA (PORCINE) 5,000 UNITS/ML 1ML VIAL SQ SCH ×3 (06:04→21:26)
[2020-09-17] MEDS: INSULIN SLIDING SCALE (NOVOLOG) 1 VIAL SQ SCH ×4 (06:05→21:36)
[2020-09-17] MEDS: BETHANECHOL CHLORIDE 25 MG TABLET GT SCH ×3 (06:05→21:27)
[2020-09-17] MEDS: GABAPENTIN 250 MG/5 ML ORAL SOLUTION, 470 ML BOTTLE GT SCH ×3 (06:05→21:27)
[2020-09-17 06:57] LABS: BASO % 0.3 % (0-2.0); HEMATOCRIT 23.1 % (32.4-45.2); HEMOGLOBIN 7.7 GM/dL (10.7-15.3); MCH 31.5 pg (25.7-33.7); MCHC 33.5 g/dl (32.0-36.0); MEAN CELL VOLUME 93.9 fl (80-96); MEAN PLT VOLUME 10.5 fl (7.5-11.1); MONO % 2.1 % (3.8-10.2); NEUT % 96.6 % (42.8-82.8); PLATELET COUNT 79 K/MM3 (134-434); RBC 2.46 M/mm3 (3.60-5.2); RDW 14.7 % (11.6-15.6)
[2020-09-17 07:09] LABS: CALCIUM 7.5 mg/dL (8.5-10.1)
[2020-09-17 07:10] LABS: ALBUMIN 1.4 g/dl (3.4-5.0); BLOOD UREA NITROGEN 47.1 mg/dL (7-18); MAGNESIUM 1.4 mg/dL (1.8-2.4)
[2020-09-17 07:13] LABS: PHOSPHOROUS 3.8 mg/dL (2.5-4.9)
[2020-09-17 07:14] LABS: TOT PROT 4.7 g/dl (6.4-8.2)
[2020-09-17 07:15] LABS: BILIRUBIN,TOTAL 0.3 mg/dL (0.2-1)
[2020-09-17] MEDS ORDERED: MAGNESIUM SULF 50% (8.12 MEQ/2 ML-1 GM VIAL) IVPB ONE ×2 (08:00→09:30)
[2020-09-17] MEDS ORDERED: PT OWN MED DRAWER 7, Y5N ONE (09:04)
[2020-09-17] MEDS: PROPOFOL 1,000,000 MCG/100 ML VIAL IVPB SCH (09:07)
[2020-09-17] MEDS: NOREPINEPHRINE BITARTRATE 16,000 MCG in SODIUM CHLORIDE 484 ML IV SCH (09:08)
[2020-09-17] MEDS: FENTANYL NS IVPB 500 MCG/100 ML BAG IVPB SCH ×2 (09:08→21:38)
[2020-09-17] MEDS: MIDAZOLAM 100 MG/100 ML MG IVPB SCH ×2 (09:08→21:38)
[2020-09-17] MEDS: THIAMINE HCL 100 MG TABLET (FP) NGT SCH (09:20)
[2020-09-17] MEDS: POLYETHYLENE GLYCOL 3350 119 GM BTL GT SCH ×2 (09:20→21:28)
[2020-09-17] MEDS: MUPIROCIN 2% TOPICAL OINTMENT FOR DECOLONIZATION NS SCH ×2 (09:20→21:24)
[2020-09-17] MEDS: ERTAPENEM SODIUM 1 GM in SODIUM CHLORIDE 50 ML IVPB SCH (09:20)
[2020-09-17] MEDS: DEXAMETHASONE SOD PHOSPHATE 4 MG/1 ML VIAL IVPUSH SCH ×2 (09:20→21:24)
[2020-09-17] MEDS: FOLIC ACID 1 MG TABLET (FP) GT SCH (09:20)
[2020-09-17] MEDS: AMINO ACIDS/PROTEIN HYDROLYS 30 ML LIQUID.PKT GT SCH (09:20)
[2020-09-17] MEDS: FERROUS SO4 300 MG/5 ML ORAL SOLN UNIT DOSE CUPS GT SCH (09:21)
[2020-09-17] MEDS: CLOTRIMAZOLE 1% CREAM 15 GM TUBE TP SCH (09:21)
[2020-09-17 09:57] LABS: ANISOCYTOSIS 0; MACROCYTOSIS 0; PLATELET ESTIMATE DECREASED
[2020-09-17] MEDS: FAMOTIDINE 20 MG/50 ML IVPB 20 MG/50 ML MG IVPB SCH (21:26)
[2020-09-17] MEDS: CHLORHEXIDINE GLUCONATE 4% CLEANSER FOR DECOLONIZATION TP SCH (21:26)
[2020-09-17] MEDS: ATORVASTATIN CA 10 MG TABLET (FP) GT SCH (21:26)
[2020-09-18] MEDS: NYSTATIN 500,000 UNITS/5 ML SUSPENSION GT SCH ×4 (00:05→17:06)
[2020-09-18] MEDS: FENTANYL NS IVPB 500 MCG/100 ML BAG IVPB SCH (05:41)
[2020-09-18] MEDS: PROPOFOL 1,000,000 MCG/100 ML VIAL IVPB SCH ×2 (05:41→11:13)
[2020-09-18] MEDS: MIDAZOLAM 100 MG/100 ML MG IVPB SCH (05:41)
[2020-09-18] MEDS: BETHANECHOL CHLORIDE 25 MG TABLET GT SCH ×3 (05:42→21:43)
[2020-09-18] MEDS: GABAPENTIN 250 MG/5 ML ORAL SOLUTION, 470 ML BOTTLE GT SCH ×3 (05:42→21:43)
[2020-09-18] MEDS: HEPARIN NA (PORCINE) 5,000 UNITS/ML 1ML VIAL SQ SCH ×3 (05:42→20:59)
[2020-09-18] MEDS: INSULIN SLIDING SCALE (NOVOLOG) 1 VIAL SQ SCH ×4 (05:59→21:11)
[2020-09-18 07:19] LABS: BASO % 0.2 % (0-2.0); HEMATOCRIT 23.6 % (32.4-45.2); HEMOGLOBIN 7.9 GM/dL (10.7-15.3); LYMPH % 1.3 % (8-40); MCHC 33.6 g/dl (32.0-36.0); MEAN CELL VOLUME 92.2 fl (80-96); MEAN PLT VOLUME 10.4 fl (7.5-11.1); MONO % 2.2 % (3.8-10.2); NEUT % 96.3 % (42.8-82.8); PLATELET COUNT 82 K/MM3 (134-434); RBC 2.56 M/mm3 (3.60-5.2); RDW 14.9 % (11.6-15.6)
[2020-09-18 07:23] LABS: CALCIUM 7.9 mg/dL (8.5-10.1)
[2020-09-18 07:24] LABS: ALBUMIN 1.6 g/dl (3.4-5.0); BLOOD UREA NITROGEN 67.5 mg/dL (7-18)
[2020-09-18 07:26] LABS: CREATININE 1.3 mg/dL (0.55-1.3); PHOSPHOROUS 3.5 mg/dL (2.5-4.9)
[2020-09-18 07:28] LABS: BILIRUBIN,TOTAL 0.3 mg/dL (0.2-1); TOT PROT 4.9 g/dl (6.4-8.2)
[2020-09-18] MEDS: AMINO ACIDS/PROTEIN HYDROLYS 30 ML LIQUID.PKT GT SCH (07:59)
[2020-09-18 08:27] LABS: ARTERIAL BLD GAS O2 SATURATION 94.1 mmHg (95-98); ARTERIAL BLOOD GAS PO2 77.7 mmHg (80-100); ARTERIAL BLOOD GAS pH 7.295 (7.350-7.450)
[2020-09-18 08:43] LABS: ALLENS TEST POSITIVE
[2020-09-18] MEDS: DEXAMETHASONE SOD PHOSPHATE 4 MG/1 ML VIAL IVPUSH SCH ×2 (09:14→20:59)
[2020-09-18] MEDS: FOLIC ACID 1 MG TABLET (FP) GT SCH (09:16)
[2020-09-18] MEDS: THIAMINE HCL 100 MG TABLET (FP) NGT SCH (09:16)
[2020-09-18] MEDS: POLYETHYLENE GLYCOL 3350 119 GM BTL GT SCH ×2 (09:16→21:00)
[2020-09-18] MEDS ORDERED: PT OWN MED DRAWER 7, Y5N ONE ×4 (09:21→21:18)
[2020-09-18] MEDS: MUPIROCIN 2% TOPICAL OINTMENT FOR DECOLONIZATION NS SCH ×2 (09:22→20:59)
[2020-09-18] MEDS: FERROUS SO4 300 MG/5 ML ORAL SOLN UNIT DOSE CUPS GT SCH (09:22)
[2020-09-18 10:21] LABS: ANISOCYTOSIS 1+; MACROCYTOSIS 1+; PLATELET ESTIMATE DECREASED
[2020-09-18] MEDS: CLOTRIMAZOLE 1% CREAM 15 GM TUBE TP SCH (10:29)
[2020-09-18] MEDS: ATORVASTATIN CA 10 MG TABLET (FP) GT SCH (20:59)
[2020-09-18] MEDS: FAMOTIDINE 20 MG/50 ML IVPB 20 MG/50 ML MG IVPB SCH (20:59)
[2020-09-18] MEDS: CHLORHEXIDINE GLUCONATE 4% CLEANSER FOR DECOLONIZATION TP SCH (21:00)
[2020-09-19] MEDS: NYSTATIN 500,000 UNITS/5 ML SUSPENSION GT SCH ×4 (01:05→17:30)
[2020-09-19] MEDS: FENTANYL NS IVPB 500 MCG/100 ML BAG IVPB SCH ×3 (02:30→10:17)
[2020-09-19] MEDS: MIDAZOLAM 100 MG/100 ML MG IVPB SCH ×4 (02:30→19:53)
[2020-09-19] MEDS: PROPOFOL 1,000,000 MCG/100 ML VIAL IVPB SCH ×2 (02:30→06:02)
[2020-09-19] MEDS: GABAPENTIN 250 MG/5 ML ORAL SOLUTION, 470 ML BOTTLE GT SCH ×3 (06:02→21:02)
[2020-09-19] MEDS: INSULIN SLIDING SCALE (NOVOLOG) 1 VIAL SQ SCH ×4 (06:05→21:26)
[2020-09-19] MEDS: HEPARIN NA (PORCINE) 5,000 UNITS/ML 1ML VIAL SQ SCH ×3 (06:09→21:01)
[2020-09-19] MEDS: BETHANECHOL CHLORIDE 25 MG TABLET GT SCH ×3 (06:09→21:01)
[2020-09-19 06:11] LABS: ARTERIAL BLD GAS O2 SATURATION 92.3 mmHg (95-98); ARTERIAL BLOOD GAS BASE EXCESS 0.6 mmol/L (-2-2); ARTERIAL BLOOD GAS PO2 68.1 mmHg (80-100); ARTERIAL BLOOD GAS pH 7.336 (7.350-7.450)
[2020-09-19 06:17] LABS: ALLENS TEST POSITIVE; VENT MODE A/C; VENT RATE 18
[2020-09-19 06:26] LABS: HEMATOCRIT 25.7 % (32.4-45.2); HEMOGLOBIN 8.6 GM/dL (10.7-15.3); MCH 30.9 pg (25.7-33.7); MCHC 33.6 g/dl (32.0-36.0); MEAN CELL VOLUME 91.9 fl (80-96); MEAN PLT VOLUME 10.9 fl (7.5-11.1); PLATELET COUNT 90 K/MM3 (134-434); RBC 2.79 M/mm3 (3.60-5.2); RDW 14.6 % (11.6-15.6); WHITE BLOOD COUNT 13.6 K/mm3 (4.0-10.0)
[2020-09-19 06:46] LABS: BLOOD UREA NITROGEN 63.5 mg/dL (7-18); CALCIUM 8.3 mg/dL (8.5-10.1); MAGNESIUM 1.6 mg/dL (1.8-2.4)
[2020-09-19] MEDS ORDERED: MAGNESIUM SULFATE IN WATER 2 GM/50 ML IVPB IVPB ONE (08:24)
[2020-09-19] MEDS ORDERED: PT OWN MED DRAWER 7, Y5N ONE ×3 (09:35→17:44)
[2020-09-19] MEDS: AMINO ACIDS/PROTEIN HYDROLYS 30 ML LIQUID.PKT GT SCH (10:11)
[2020-09-19] MEDS: FERROUS SO4 300 MG/5 ML ORAL SOLN UNIT DOSE CUPS GT SCH (10:11)
[2020-09-19] MEDS: FOLIC ACID 1 MG TABLET (FP) GT SCH (10:13)
[2020-09-19] MEDS: CLOTRIMAZOLE 1% CREAM 15 GM TUBE TP SCH (10:13)
[2020-09-19] MEDS: DEXAMETHASONE SOD PHOSPHATE 4 MG/1 ML VIAL IVPUSH SCH ×2 (10:13→21:01)
[2020-09-19] MEDS: POLYETHYLENE GLYCOL 3350 119 GM BTL GT SCH ×2 (10:14→21:26)
[2020-09-19] MEDS: INSULIN (LEVEMIR) 100 UNITS/ML UNITS SQ SCH ×2 (11:21→21:10)
[2020-09-19] MEDS: THIAMINE HCL 100 MG TABLET (FP) NGT SCH (12:56)
[2020-09-19] MEDS: FAMOTIDINE 20 MG/50 ML IVPB 20 MG/50 ML MG IVPB SCH (21:01)
[2020-09-19] MEDS: ATORVASTATIN CA 10 MG TABLET (FP) GT SCH (21:02)
[2020-09-19] MEDS: CHLORHEXIDINE GLUCONATE 4% CLEANSER FOR DECOLONIZATION TP SCH (21:26)
[2020-09-20] MEDS: NYSTATIN 500,000 UNITS/5 ML SUSPENSION GT SCH ×4 (01:05→17:22)
[2020-09-20] MEDS: GABAPENTIN 250 MG/5 ML ORAL SOLUTION, 470 ML BOTTLE GT SCH ×3 (05:30→22:32)
[2020-09-20] MEDS: BETHANECHOL CHLORIDE 25 MG TABLET GT SCH ×3 (05:30→21:06)
[2020-09-20] MEDS: PROPOFOL 1,000,000 MCG/100 ML VIAL IVPB SCH (05:30)
[2020-09-20] MEDS: HEPARIN NA (PORCINE) 5,000 UNITS/ML 1ML VIAL SQ SCH ×3 (05:30→21:05)
[2020-09-20 06:46] LABS: ARTERIAL BLD GAS O2 SATURATION 93.1 mmHg (95-98); ARTERIAL BLOOD GAS BASE EXCESS 3.2 mmol/L (-2-2); ARTERIAL BLOOD GAS PO2 70.3 mmHg (80-100); ARTERIAL BLOOD GAS pH 7.353 (7.350-7.450)
[2020-09-20 06:55] LABS: ALLENS TEST POSITIVE; VENT MODE A/C
[2020-09-20 06:56] LABS: VENT RATE 18
[2020-09-20] MEDS: MIDAZOLAM 100 MG/100 ML MG IVPB SCH (06:59)
[2020-09-20] MEDS: FENTANYL NS IVPB 500 MCG/100 ML BAG IVPB SCH (06:59)
[2020-09-20] MEDS: INSULIN (LEVEMIR) 100 UNITS/ML UNITS SQ SCH ×2 (06:59→21:05)
[2020-09-20] MEDS: INSULIN SLIDING SCALE (NOVOLOG) 1 VIAL SQ SCH ×4 (07:00→21:52)
[2020-09-20 07:34] LABS: BASO % 0.1 % (0-2.0); EOS % 0.1 % (0-4.5); HEMATOCRIT 24.3 % (32.4-45.2); HEMOGLOBIN 8.1 GM/dL (10.7-15.3); LYMPH % 1.4 % (8-40); MCH 30.6 pg (25.7-33.7); MCHC 33.5 g/dl (32.0-36.0); MEAN CELL VOLUME 91.4 fl (80-96); MEAN PLT VOLUME 10.2 fl (7.5-11.1); MONO % 3.2 % (3.8-10.2); NEUT % 95.2 % (42.8-82.8); PLATELET COUNT 100 K/MM3 (134-434); RBC 2.66 M/mm3 (3.60-5.2); RDW 15.1 % (11.6-15.6); WHITE BLOOD COUNT 15.1 K/mm3 (4.0-10.0)
[2020-09-20 07:56] LABS: BLOOD UREA NITROGEN 59.5 mg/dL (7-18); CALCIUM 8.2 mg/dL (8.5-10.1)
[2020-09-20 07:57] LABS: ALBUMIN 1.8 g/dl (3.4-5.0); MAGNESIUM 1.9 mg/dL (1.8-2.4)
[2020-09-20 07:59] LABS: CREATININE 0.9 mg/dL (0.55-1.3)
[2020-09-20 08:00] LABS: BILIRUBIN,TOTAL 0.4 mg/dL (0.2-1)
[2020-09-20 08:01] LABS: TOT PROT 5.2 g/dl (6.4-8.2)
[2020-09-20 09:01] LABS: ANISOCYTOSIS 0; MACROCYTOSIS 0; PLATELET ESTIMATE DECREASED
[2020-09-20] MEDS ORDERED: PT OWN MED DRAWER 7, Y5N ONE ×4 (09:04→22:07)
[2020-09-20] MEDS: FERROUS SO4 300 MG/5 ML ORAL SOLN UNIT DOSE CUPS GT SCH (09:21)
[2020-09-20] MEDS: DEXAMETHASONE SOD PHOSPHATE 4 MG/1 ML VIAL IVPUSH SCH ×2 (09:21→21:33)
[2020-09-20] MEDS: AMINO ACIDS/PROTEIN HYDROLYS 30 ML LIQUID.PKT GT SCH (09:22)
[2020-09-20] MEDS: FOLIC ACID 1 MG TABLET (FP) GT SCH (09:22)
[2020-09-20] MEDS: THIAMINE HCL 100 MG TABLET (FP) NGT SCH (09:23)
[2020-09-20] MEDS: CLOTRIMAZOLE 1% CREAM 15 GM TUBE TP SCH (09:23)
[2020-09-20] MEDS: POLYETHYLENE GLYCOL 3350 119 GM BTL GT SCH ×2 (09:23→21:06)
[2020-09-20] MEDS: CHLORHEXIDINE GLUCONATE 4% CLEANSER FOR DECOLONIZATION TP SCH (21:05)
[2020-09-20] MEDS: FAMOTIDINE 20 MG/50 ML IVPB 20 MG/50 ML MG IVPB SCH (21:06)
[2020-09-20] MEDS: ATORVASTATIN CA 10 MG TABLET (FP) GT SCH (21:06)
[2020-09-21] MEDS: NYSTATIN 500,000 UNITS/5 ML SUSPENSION GT SCH ×4 (00:32→17:26)
[2020-09-21] MEDS: INSULIN SLIDING SCALE (NOVOLOG) 1 VIAL SQ SCH ×4 (06:24→21:23)
[2020-09-21] MEDS: INSULIN (LEVEMIR) 100 UNITS/ML UNITS SQ SCH ×2 (06:25→21:22)
[2020-09-21] MEDS: GABAPENTIN 250 MG/5 ML ORAL SOLUTION, 470 ML BOTTLE GT SCH ×3 (06:25→21:22)
[2020-09-21] MEDS: BETHANECHOL CHLORIDE 25 MG TABLET GT SCH ×3 (06:25→21:23)
[2020-09-21] MEDS: PROPOFOL 1,000,000 MCG/100 ML VIAL IVPB SCH (06:26)
[2020-09-21] MEDS ORDERED: PT OWN MED DRAWER 7, Y5N ONE ×5 (06:42→18:45)
[2020-09-21 07:09] LABS: BASO % 0.1 % (0-2.0); HEMATOCRIT 21.9 % (32.4-45.2); HEMOGLOBIN 7.3 GM/dL (10.7-15.3); LYMPH % 2.8 % (8-40); MCH 30.7 pg (25.7-33.7); MCHC 33.4 g/dl (32.0-36.0); MEAN CELL VOLUME 91.9 fl (80-96); MEAN PLT VOLUME 10.3 fl (7.5-11.1); MONO % 2.3 % (3.8-10.2); NEUT % 94.8 % (42.8-82.8); PLATELET COUNT 106 K/MM3 (134-434); RBC 2.39 M/mm3 (3.60-5.2); RDW 14.6 % (11.6-15.6); WHITE BLOOD COUNT 13.6 K/mm3 (4.0-10.0)
[2020-09-21 07:25] LABS: ALBUMIN 1.8 g/dl (3.4-5.0); BLOOD UREA NITROGEN 56.4 mg/dL (7-18); CALCIUM 7.9 mg/dL (8.5-10.1); MAGNESIUM 1.5 mg/dL (1.8-2.4)
[2020-09-21 07:28] LABS: CREATININE 0.8 mg/dL (0.55-1.3); PHOSPHOROUS 3.6 mg/dL (2.5-4.9)
[2020-09-21 07:30] LABS: BILIRUBIN,TOTAL 0.4 mg/dL (0.2-1); TOT PROT 4.6 g/dl (6.4-8.2)
[2020-09-21] MEDS ORDERED: MAGNESIUM SULF 50% (8.12 MEQ/2 ML-1 GM VIAL) IVPB ONE (08:37)
[2020-09-21 09:14] LABS: ANISOCYTOSIS 2+; MACROCYTOSIS 0; OVALOCYTE 1+; PLATELET ESTIMATE DECREASED
[2020-09-21] MEDS: DEXAMETHASONE SOD PHOSPHATE 4 MG/1 ML VIAL IVPUSH SCH ×2 (09:15→21:22)
[2020-09-21] MEDS: FOLIC ACID 1 MG TABLET (FP) GT SCH (09:19)
[2020-09-21] MEDS: FERROUS SO4 300 MG/5 ML ORAL SOLN UNIT DOSE CUPS GT SCH (09:19)
[2020-09-21] MEDS: THIAMINE HCL 100 MG TABLET (FP) NGT SCH (09:19)
[2020-09-21] MEDS: CLOTRIMAZOLE 1% CREAM 15 GM TUBE TP SCH (09:19)
[2020-09-21] MEDS: AMINO ACIDS/PROTEIN HYDROLYS 30 ML LIQUID.PKT GT SCH (09:19)
[2020-09-21] MEDS: POLYETHYLENE GLYCOL 3350 119 GM BTL GT SCH ×2 (09:20→21:23)
[2020-09-21] MEDS: MIDAZOLAM 100 MG/100 ML MG IVPB SCH (14:15)
[2020-09-21] MEDS: FENTANYL NS IVPB 500 MCG/100 ML BAG IVPB SCH ×2 (14:15→20:00)
[2020-09-21] MEDS: ATORVASTATIN CA 10 MG TABLET (FP) GT SCH (21:22)
[2020-09-21] MEDS: FAMOTIDINE 20 MG/50 ML IVPB 20 MG/50 ML MG IVPB SCH (21:22)
[2020-09-21] MEDS: CHLORHEXIDINE GLUCONATE 4% CLEANSER FOR DECOLONIZATION TP SCH (21:23)
[2020-09-22] MEDS: NYSTATIN 500,000 UNITS/5 ML SUSPENSION GT SCH ×4 (00:06→17:47)
[2020-09-22] MEDS: FENTANYL NS IVPB 500 MCG/100 ML BAG IVPB SCH ×4 (01:00→20:44)
[2020-09-22] MEDS: MIDAZOLAM 100 MG/100 ML MG IVPB SCH ×3 (03:29→20:44)
[2020-09-22] MEDS: PROPOFOL 1,000,000 MCG/100 ML VIAL IVPB SCH (04:32)
[2020-09-22] MEDS ORDERED: PT OWN MED DRAWER 7, Y5N ONE ×4 (05:29→21:06)
[2020-09-22] MEDS: BETHANECHOL CHLORIDE 25 MG TABLET GT SCH ×3 (06:06→22:33)
[2020-09-22] MEDS: GABAPENTIN 250 MG/5 ML ORAL SOLUTION, 470 ML BOTTLE GT SCH ×3 (06:07→21:20)
[2020-09-22] MEDS: INSULIN (LEVEMIR) 100 UNITS/ML UNITS SQ SCH ×2 (06:14→21:19)
[2020-09-22] MEDS: INSULIN SLIDING SCALE (NOVOLOG) 1 VIAL SQ SCH ×4 (06:15→21:19)
[2020-09-22 07:16] LABS: BASO % 0.1 % (0-2.0); HEMATOCRIT 23.2 % (32.4-45.2); HEMOGLOBIN 7.8 GM/dL (10.7-15.3); LYMPH % 2.2 % (8-40); MCH 30.8 pg (25.7-33.7); MCHC 33.5 g/dl (32.0-36.0); MEAN PLT VOLUME 10.3 fl (7.5-11.1); MONO % 2.5 % (3.8-10.2); NEUT % 95.2 % (42.8-82.8); PLATELET COUNT 113 K/MM3 (134-434); RBC 2.52 M/mm3 (3.60-5.2); RDW 15.2 % (11.6-15.6); WHITE BLOOD COUNT 13.4 K/mm3 (4.0-10.0)
[2020-09-22 07:40] LABS: CALCIUM 8.2 mg/dL (8.5-10.1)
[2020-09-22 07:41] LABS: BLOOD UREA NITROGEN 51.3 mg/dL (7-18); MAGNESIUM 1.7 mg/dL (1.8-2.4)
[2020-09-22 07:43] LABS: CREATININE 0.7 mg/dL (0.55-1.3); PHOSPHOROUS 3.2 mg/dL (2.5-4.9)
[2020-09-22 07:44] LABS: BILIRUBIN,TOTAL 0.4 mg/dL (0.2-1); TOT PROT 5.2 g/dl (6.4-8.2)
[2020-09-22] MEDS ORDERED: MAGNESIUM SULF 50% (8.12 MEQ/2 ML-1 GM VIAL) IVPB ONE (07:55)
[2020-09-22] MEDS: POLYETHYLENE GLYCOL 3350 119 GM BTL GT SCH ×2 (09:36→21:20)
[2020-09-22] MEDS: FERROUS SO4 300 MG/5 ML ORAL SOLN UNIT DOSE CUPS GT SCH (09:36)
[2020-09-22] MEDS: FOLIC ACID 1 MG TABLET (FP) GT SCH (09:36)
[2020-09-22] MEDS: DEXAMETHASONE SOD PHOSPHATE 4 MG/1 ML VIAL IVPUSH SCH ×2 (09:36→21:18)
[2020-09-22] MEDS: THIAMINE HCL 100 MG TABLET (FP) NGT SCH (09:37)
[2020-09-22] MEDS: AMINO ACIDS/PROTEIN HYDROLYS 30 ML LIQUID.PKT GT SCH (09:37)
[2020-09-22 10:10] LABS: OVALOCYTE 1+; ROULEAU 1+
[2020-09-22 10:11] LABS: PLATELET ESTIMATE SLT DECREASE
[2020-09-22] MEDS: HEPARIN NA (PORCINE) 5,000 UNITS/ML 1ML VIAL SQ SCH ×2 (17:50→21:19)
[2020-09-22] MEDS: CLOTRIMAZOLE 1% CREAM 15 GM TUBE TP SCH (20:44)
[2020-09-22] MEDS: ATORVASTATIN CA 10 MG TABLET (FP) GT SCH (21:19)
[2020-09-22] MEDS: CHLORHEXIDINE GLUCONATE 4% CLEANSER FOR DECOLONIZATION TP SCH (21:19)
[2020-09-22] MEDS: FAMOTIDINE 20 MG/50 ML IVPB 20 MG/50 ML MG IVPB SCH (21:20)
[2020-09-23] MEDS: NYSTATIN 500,000 UNITS/5 ML SUSPENSION GT SCH ×3 (06:12→18:28)
[2020-09-23] MEDS: HEPARIN NA (PORCINE) 5,000 UNITS/ML 1ML VIAL SQ SCH ×3 (06:13→21:20)
[2020-09-23] MEDS: GABAPENTIN 250 MG/5 ML ORAL SOLUTION, 470 ML BOTTLE GT SCH ×3 (06:13→21:21)
[2020-09-23] MEDS: PROPOFOL 1,000,000 MCG/100 ML VIAL IVPB SCH (06:13)
[2020-09-23] MEDS: BETHANECHOL CHLORIDE 25 MG TABLET GT SCH ×3 (06:13→21:22)
[2020-09-23] MEDS: INSULIN SLIDING SCALE (NOVOLOG) 1 VIAL SQ SCH ×4 (06:16→21:21)
[2020-09-23] MEDS: INSULIN (LEVEMIR) 100 UNITS/ML UNITS SQ SCH ×2 (06:16→21:21)
[2020-09-23 07:17] LABS: BASO % 0.2 % (0-2.0); EOS % 0.1 % (0-4.5); HEMOGLOBIN 7.9 GM/dL (10.7-15.3); LYMPH % 2.4 % (8-40); MCH 30.9 pg (25.7-33.7); MCHC 33.2 g/dl (32.0-36.0); MEAN CELL VOLUME 93.2 fl (80-96); MEAN PLT VOLUME 10.8 fl (7.5-11.1); MONO % 3.7 % (3.8-10.2); NEUT % 93.6 % (42.8-82.8); PLATELET COUNT 120 K/MM3 (134-434); RBC 2.57 M/mm3 (3.60-5.2); RDW 15.7 % (11.6-15.6); WHITE BLOOD COUNT 13.5 K/mm3 (4.0-10.0)
[2020-09-23 07:42] LABS: CALCIUM 8.3 mg/dL (8.5-10.1)
[2020-09-23 07:43] LABS: ALBUMIN 2.1 g/dl (3.4-5.0); BLOOD UREA NITROGEN 43.6 mg/dL (7-18); MAGNESIUM 1.8 mg/dL (1.8-2.4)
[2020-09-23 07:46] LABS: CREATININE 0.6 mg/dL (0.55-1.3); PHOSPHOROUS 3.1 mg/dL (2.5-4.9)
[2020-09-23 07:47] LABS: BILIRUBIN,TOTAL 0.4 mg/dL (0.2-1); TOT PROT 5.3 g/dl (6.4-8.2)
[2020-09-23] MEDS: AMINO ACIDS/PROTEIN HYDROLYS 30 ML LIQUID.PKT GT SCH (09:57)
[2020-09-23] MEDS: FOLIC ACID 1 MG TABLET (FP) GT SCH (09:57)
[2020-09-23] MEDS: FERROUS SO4 300 MG/5 ML ORAL SOLN UNIT DOSE CUPS GT SCH (09:57)
[2020-09-23] MEDS: THIAMINE HCL 100 MG TABLET (FP) NGT SCH (09:57)
[2020-09-23] MEDS: POLYETHYLENE GLYCOL 3350 119 GM BTL GT SCH ×2 (09:58→21:22)
[2020-09-23] MEDS: DEXAMETHASONE SOD PHOSPHATE 4 MG/1 ML VIAL IVPUSH SCH ×2 (09:58→21:20)
[2020-09-23] MEDS: CLOTRIMAZOLE 1% CREAM 15 GM TUBE TP SCH (10:00)
[2020-09-23 11:22] LABS: ANISOCYTOSIS 1+; MACROCYTOSIS 0; PLATELET ESTIMATE DECREASED; TEAR DROP CELLS 1+; TOXIC GRANULATION 2+
[2020-09-23] MEDS: FENTANYL NS IVPB 500 MCG/100 ML BAG IVPB SCH ×3 (11:51→18:15)
[2020-09-23] MEDS: MIDAZOLAM 100 MG/100 ML MG IVPB SCH ×2 (15:25→18:15)
[2020-09-23] MEDS ORDERED: FENTANYL NS IVPB 500 MCG/100 ML BAG IVPB ONE (19:40)
[2020-09-23] MEDS ORDERED: MIDAZOLAM 100 MG/100 ML MG IVPB ONE (19:41)
[2020-09-23] MEDS: CHLORHEXIDINE GLUCONATE 4% CLEANSER FOR DECOLONIZATION TP SCH (21:20)
[2020-09-23] MEDS: FAMOTIDINE 20 MG/50 ML IVPB 20 MG/50 ML MG IVPB SCH (21:21)
[2020-09-23] MEDS: ATORVASTATIN CA 10 MG TABLET (FP) GT SCH (21:22)
[2020-09-24] MEDS: NYSTATIN 500,000 UNITS/5 ML SUSPENSION GT SCH ×3 (00:21→11:53)
[2020-09-24] MEDS: HEPARIN NA (PORCINE) 5,000 UNITS/ML 1ML VIAL SQ SCH ×3 (06:21→21:58)
[2020-09-24] MEDS: PROPOFOL 1,000,000 MCG/100 ML VIAL IVPB SCH (06:21)
[2020-09-24] MEDS: INSULIN (LEVEMIR) 100 UNITS/ML UNITS SQ SCH ×2 (06:22→22:01)
[2020-09-24] MEDS: GABAPENTIN 250 MG/5 ML ORAL SOLUTION, 470 ML BOTTLE GT SCH ×3 (06:22→22:02)
[2020-09-24] MEDS: INSULIN SLIDING SCALE (NOVOLOG) 1 VIAL SQ SCH ×4 (06:22→22:03)
[2020-09-24] MEDS: BETHANECHOL CHLORIDE 25 MG TABLET GT SCH ×3 (06:22→22:57)
[2020-09-24 07:47] LABS: HEMATOCRIT 22.1 % (32.4-45.2); HEMOGLOBIN 7.2 GM/dL (10.7-15.3); LYMPH % 2.5 % (8-40); MCH 30.8 pg (25.7-33.7); MCHC 32.8 g/dl (32.0-36.0); MEAN CELL VOLUME 93.9 fl (80-96); MEAN PLT VOLUME 10.5 fl (7.5-11.1); NEUT % 93.5 % (42.8-82.8); PLATELET COUNT 119 K/MM3 (134-434); RBC 2.35 M/mm3 (3.60-5.2); RDW 15.7 % (11.6-15.6); WHITE BLOOD COUNT 14.2 K/mm3 (4.0-10.0)
[2020-09-24] MEDS: FENTANYL NS IVPB 500 MCG/100 ML BAG IVPB SCH ×3 (07:49→19:00)
[2020-09-24] MEDS: AMINO ACIDS/PROTEIN HYDROLYS 30 ML LIQUID.PKT GT SCH (07:49)
[2020-09-24 08:00] LABS: CHLORIDE 105 mmol/L (98-107); SODIUM 143 mmol/L (136-145)
[2020-09-24] MEDS ORDERED: PT OWN MED DRAWER 7, Y5N ONE ×2 (08:04→21:50)
[2020-09-24 08:05] LABS: BLOOD UREA NITROGEN 40.1 mg/dL (7-18)
[2020-09-24 08:06] LABS: ALBUMIN 2.1 g/dl (3.4-5.0); ANION GAP 4 MMOL/L (8-16); CO2 34 mmol/L (21-32); GLUCOSE,RANDOM 234 mg/dL (74-106); MAGNESIUM 1.3 mg/dL (1.8-2.4)
[2020-09-24 08:08] LABS: SGPT/ALT 71 U/L (13-61)
[2020-09-24 08:09] LABS: CREATININE 0.5 mg/dL (0.55-1.3); PHOSPHOROUS 2.7 mg/dL (2.5-4.9); SGOT/AST 31 U/L (15-37)
[2020-09-24 08:10] LABS: BILIRUBIN,TOTAL 0.5 mg/dL (0.2-1); TOT PROT 4.8 g/dl (6.4-8.2)
[2020-09-24 08:25] LABS: LDH 554 U/L (84-246)
[2020-09-24 08:27] LABS: ALK PHOS 232 U/L (45-117)
[2020-09-24] MEDS: DEXAMETHASONE SOD PHOSPHATE 4 MG/1 ML VIAL IVPUSH SCH ×2 (09:18→21:57)
[2020-09-24] MEDS: THIAMINE HCL 100 MG TABLET (FP) NGT SCH (09:18)
[2020-09-24] MEDS: FOLIC ACID 1 MG TABLET (FP) GT SCH (09:18)
[2020-09-24] MEDS: POLYETHYLENE GLYCOL 3350 119 GM BTL GT SCH ×2 (09:18→22:02)
[2020-09-24] MEDS: FERROUS SO4 300 MG/5 ML ORAL SOLN UNIT DOSE CUPS GT SCH (09:19)
[2020-09-24] MEDS: CLOTRIMAZOLE 1% CREAM 15 GM TUBE TP SCH (09:19)
[2020-09-24] MEDS ORDERED: MAGNESIUM 2GM/50ML STERILE WATER IVPB IVPB ONE (09:30)
[2020-09-24] MEDS ORDERED: FUROSEMIDE 40 MG/4 ML INJECTABLE VIAL IVPUSH ONE (10:36)
[2020-09-24 11:08] LABS: ANISOCYTOSIS 1+; MACROCYTOSIS 1+; PLATELET ESTIMATE DECREASED
[2020-09-24] MEDS: MIDAZOLAM 100 MG/100 ML MG IVPB SCH ×2 (12:03→19:00)
[2020-09-24] MEDS: CHLORHEXIDINE GLUCONATE 4% CLEANSER FOR DECOLONIZATION TP SCH (21:58)
[2020-09-24] MEDS: ATORVASTATIN CA 10 MG TABLET (FP) GT SCH (22:02)
[2020-09-24] MEDS: FAMOTIDINE 20 MG/50 ML IVPB 20 MG/50 ML MG IVPB SCH (22:03)
[2020-09-25] MEDS ORDERED: PT OWN MED DRAWER 7, Y5N ONE ×5 (04:40→16:00)
[2020-09-25] MEDS: GABAPENTIN 250 MG/5 ML ORAL SOLUTION, 470 ML BOTTLE GT SCH ×3 (06:16→21:59)
[2020-09-25] MEDS: HEPARIN NA (PORCINE) 5,000 UNITS/ML 1ML VIAL SQ SCH ×3 (06:16→21:56)
[2020-09-25] MEDS: BETHANECHOL CHLORIDE 25 MG TABLET GT SCH ×3 (06:17→22:00)
[2020-09-25] MEDS: INSULIN (LEVEMIR) 100 UNITS/ML UNITS SQ SCH ×2 (06:17→21:57)
[2020-09-25] MEDS: INSULIN SLIDING SCALE (NOVOLOG) 1 VIAL SQ SCH ×4 (06:21→22:15)
[2020-09-25] MEDS: FENTANYL NS IVPB 500 MCG/100 ML BAG IVPB SCH ×5 (06:54→22:33)
[2020-09-25 07:18] LABS: HEMATOCRIT 23.4 % (32.4-45.2); HEMOGLOBIN 7.6 GM/dL (10.7-15.3); MCH 30.7 pg (25.7-33.7); MCHC 32.6 g/dl (32.0-36.0); MEAN PLT VOLUME 10.5 fl (7.5-11.1); PLATELET COUNT 126 K/MM3 (134-434); RBC 2.49 M/mm3 (3.60-5.2); RDW 16.3 % (11.6-15.6)
[2020-09-25 07:35] LABS: CHLORIDE 101 mmol/L (98-107); SODIUM 141 mmol/L (136-145)
[2020-09-25 07:38] LABS: ALBUMIN 2.4 g/dl (3.4-5.0); ANION GAP 3 MMOL/L (8-16); BLOOD UREA NITROGEN 39.7 mg/dL (7-18); CO2 37 mmol/L (21-32); GLUCOSE,RANDOM 250 mg/dL (74-106); MAGNESIUM 1.4 mg/dL (1.8-2.4)
[2020-09-25 07:41] LABS: CREATININE 0.5 mg/dL (0.55-1.3); PHOSPHOROUS 2.6 mg/dL (2.5-4.9); SGOT/AST 34 U/L (15-37); SGPT/ALT 77 U/L (13-61)
[2020-09-25 07:42] LABS: BILIRUBIN,TOTAL 0.6 mg/dL (0.2-1); TOT PROT 5.2 g/dl (6.4-8.2)
[2020-09-25 07:44] LABS: ALK PHOS 237 U/L (45-117); LDH 577 U/L (84-246)
[2020-09-25] MEDS: AMINO ACIDS/PROTEIN HYDROLYS 30 ML LIQUID.PKT GT SCH (09:00)
[2020-09-25] MEDS: MIDAZOLAM 100 MG/100 ML MG IVPB SCH ×2 (09:00→22:33)
[2020-09-25] MEDS: FERROUS SO4 300 MG/5 ML ORAL SOLN UNIT DOSE CUPS GT SCH (09:28)
[2020-09-25] MEDS: FOLIC ACID 1 MG TABLET (FP) GT SCH (09:28)
[2020-09-25] MEDS: DEXAMETHASONE SOD PHOSPHATE 4 MG/1 ML VIAL IVPUSH SCH (09:28)
[2020-09-25] MEDS: THIAMINE HCL 100 MG TABLET (FP) NGT SCH (09:29)
[2020-09-25] MEDS: CLOTRIMAZOLE 1% CREAM 15 GM TUBE TP SCH (09:34)
[2020-09-25] MEDS: POLYETHYLENE GLYCOL 3350 119 GM BTL GT SCH ×2 (10:00→21:59)
[2020-09-25] MEDS: CHLORHEXIDINE GLUCONATE 4% CLEANSER FOR DECOLONIZATION TP SCH (21:56)
[2020-09-25] MEDS: ATORVASTATIN CA 10 MG TABLET (FP) GT SCH (21:58)
[2020-09-25] MEDS: FAMOTIDINE 20 MG/50 ML IVPB 20 MG/50 ML MG IVPB SCH (21:59)
[2020-09-26 05:23] LABS: ARTERIAL BLD GAS O2 SATURATION 94.7 mmHg (95-98); ARTERIAL BLOOD GAS BASE EXCESS 11.7 mmol/L (-2-2); ARTERIAL BLOOD GAS pH 7.468 (7.350-7.450)
[2020-09-26 05:27] LABS: ALLENS TEST POSITIVE; VENT MODE A/C; VENT RATE 18
[2020-09-26] MEDS ORDERED: PT OWN MED DRAWER 7, Y5N ONE ×3 (06:00→20:37)
[2020-09-26] MEDS: HEPARIN NA (PORCINE) 5,000 UNITS/ML 1ML VIAL SQ SCH ×3 (06:12→22:15)
[2020-09-26] MEDS: BETHANECHOL CHLORIDE 25 MG TABLET GT SCH ×3 (06:13→22:15)
[2020-09-26] MEDS: GABAPENTIN 250 MG/5 ML ORAL SOLUTION, 470 ML BOTTLE GT SCH ×3 (06:13→22:14)
[2020-09-26] MEDS: INSULIN (LEVEMIR) 100 UNITS/ML UNITS SQ SCH ×2 (06:14→22:16)
[2020-09-26] MEDS: INSULIN SLIDING SCALE (NOVOLOG) 1 VIAL SQ SCH ×4 (06:15→22:57)
[2020-09-26] MEDS: FENTANYL NS IVPB 500 MCG/100 ML BAG IVPB SCH ×2 (06:35→16:45)
[2020-09-26 07:00] LABS: HEMATOCRIT 24.9 % (32.4-45.2); HEMOGLOBIN 8.3 GM/dL (10.7-15.3); MCH 31.3 pg (25.7-33.7); MCHC 33.4 g/dl (32.0-36.0); MEAN CELL VOLUME 93.7 fl (80-96); MEAN PLT VOLUME 9.8 fl (7.5-11.1); PLATELET COUNT 138 K/MM3 (134-434); RBC 2.66 M/mm3 (3.60-5.2); RDW 17.7 % (11.6-15.6); WHITE BLOOD COUNT 25.4 K/mm3 (4.0-10.0)
[2020-09-26 07:15] LABS: CALCIUM 8.3 mg/dL (8.5-10.1)
[2020-09-26 07:16] LABS: BLOOD UREA NITROGEN 36.7 mg/dL (7-18); MAGNESIUM 1.4 mg/dL (1.8-2.4)
[2020-09-26 07:19] LABS: CREATININE 0.5 mg/dL (0.55-1.3); PHOSPHOROUS 2.5 mg/dL (2.5-4.9)
[2020-09-26 09:16] LABS: EPI CELLS 1 /uL (0-25.1); HYALINE CASTS 17 /uL (0-3.1); URINE APPEARANCE TURBID; URINE BACTERIA >9,000 /uL (0-1359); URINE BILIRUBIN NEGATIVE (NEGATIVE); URINE COLOR RED; URINE GLUCOSE (UA) 2+ (NEGATIVE); URINE KETONE NEGATIVE (NEGATIVE); URINE LEUK ESTERASE 2+ (NEGATIVE); URINE NITRITE NEGATIVE (NEGATIVE); URINE PROTEIN 2+ (NEGATIVE); URINE RBC 5339 /uL (0-23.9); URINE UROBILINOGEN 0.2 mg/dL (0.2-1.0); URINE WBC 851 /uL (0-25.8)
[2020-09-26] MEDS ORDERED: MAGNESIUM OXIDE 400 MG TABLET (FP) PO ONE (09:30)
[2020-09-26] MEDS ORDERED: DEXAMETHASONE SOD PHOSPHATE 4 MG/1 ML VIAL IVPUSH SCH (10:00)
[2020-09-26] MEDS: AMINO ACIDS/PROTEIN HYDROLYS 30 ML LIQUID.PKT GT SCH (10:10)
[2020-09-26] MEDS: THIAMINE HCL 100 MG TABLET (FP) NGT SCH (10:11)
[2020-09-26] MEDS: FOLIC ACID 1 MG TABLET (FP) GT SCH (10:11)
[2020-09-26] MEDS: POLYETHYLENE GLYCOL 3350 119 GM BTL GT SCH ×2 (10:12→22:14)
[2020-09-26] MEDS: CLOTRIMAZOLE 1% CREAM 15 GM TUBE TP SCH (10:12)
[2020-09-26] MEDS: FERROUS SO4 300 MG/5 ML ORAL SOLN UNIT DOSE CUPS GT SCH (10:12)
[2020-09-26] MEDS: DEXAMETHASONE SOD PHOSPHATE 4 MG/1 ML VIAL IVPUSH SCH (11:30)
[2020-09-26] MEDS: FAMOTIDINE 20 MG/50 ML IVPB 20 MG/50 ML MG IVPB SCH (21:10)
[2020-09-26] MEDS: CHLORHEXIDINE GLUCONATE 4% CLEANSER FOR DECOLONIZATION TP SCH (22:14)
[2020-09-26] MEDS: ATORVASTATIN CA 10 MG TABLET (FP) GT SCH (22:15)
[2020-09-27] MEDS ORDERED: PROPOFOL 1,000,000 MCG/100 ML VIAL ONE (00:37)
[2020-09-27] MEDS: PROPOFOL 1,000,000 MCG/100 ML VIAL IVPB SCH (01:24)
[2020-09-27] MEDS: INSULIN (LEVEMIR) 100 UNITS/ML UNITS SQ SCH ×2 (06:39→21:35)
[2020-09-27] MEDS: INSULIN SLIDING SCALE (NOVOLOG) 1 VIAL SQ SCH ×4 (06:39→21:36)
[2020-09-27] MEDS: GABAPENTIN 250 MG/5 ML ORAL SOLUTION, 470 ML BOTTLE GT SCH ×3 (06:39→22:20)
[2020-09-27] MEDS: HEPARIN NA (PORCINE) 5,000 UNITS/ML 1ML VIAL SQ SCH ×3 (06:39→21:35)
[2020-09-27] MEDS: BETHANECHOL CHLORIDE 25 MG TABLET GT SCH ×3 (06:39→22:20)
[2020-09-27 06:50] LABS: BASO % 0.3 % (0-2.0); EOS % 0.6 % (0-4.5); HEMATOCRIT 20.6 % (32.4-45.2); LYMPH % 4.6 % (8-40); MCHC 34.2 g/dl (32.0-36.0); MEAN CELL VOLUME 93.6 fl (80-96); MEAN PLT VOLUME 9.4 fl (7.5-11.1); MONO % 4.8 % (3.8-10.2); NEUT % 89.7 % (42.8-82.8); PLATELET COUNT 89 K/MM3 (134-434); WHITE BLOOD COUNT 16.2 K/mm3 (4.0-10.0)
[2020-09-27 07:19] LABS: ALBUMIN 2.2 g/dl (3.4-5.0); BLOOD UREA NITROGEN 36.8 mg/dL (7-18); CALCIUM 7.8 mg/dL (8.5-10.1); MAGNESIUM 1.1 mg/dL (1.8-2.4)
[2020-09-27 07:22] LABS: CREATININE 0.5 mg/dL (0.55-1.3)
[2020-09-27 07:23] LABS: BILIRUBIN,TOTAL 0.6 mg/dL (0.2-1); PHOSPHOROUS 2.4 mg/dL (2.5-4.9)
[2020-09-27] MEDS ORDERED: NAPH,MB-DB/K PH,MBDB POWDER PACKET PO ONE (08:07)
[2020-09-27] MEDS ORDERED: MAGNESIUM SULF 50% (8.12 MEQ/2 ML-1 GM VIAL) IVPB ONE (08:07)
[2020-09-27] MEDS: THIAMINE HCL 100 MG TABLET (FP) NGT SCH (09:15)
[2020-09-27] MEDS: DEXAMETHASONE SOD PHOSPHATE 4 MG/1 ML VIAL IVPUSH SCH (09:15)
[2020-09-27] MEDS: AMINO ACIDS/PROTEIN HYDROLYS 30 ML LIQUID.PKT GT SCH (09:15)
[2020-09-27] MEDS: FOLIC ACID 1 MG TABLET (FP) GT SCH (09:15)
[2020-09-27] MEDS ORDERED: PT OWN MED DRAWER 7, Y5N ONE ×2 (10:25→21:31)
[2020-09-27] MEDS ORDERED: FUROSEMIDE 40 MG/4 ML INJECTABLE VIAL IVPUSH ONE ×3 (10:29→16:00)
[2020-09-27] MEDS: POLYETHYLENE GLYCOL 3350 119 GM BTL GT SCH ×2 (10:45→21:36)
[2020-09-27] MEDS: FERROUS SO4 300 MG/5 ML ORAL SOLN UNIT DOSE CUPS GT SCH (10:45)
[2020-09-27] MEDS: CLOTRIMAZOLE 1% CREAM 15 GM TUBE TP SCH (10:45)
[2020-09-27] MEDS ORDERED: SODIUM CHLORIDE 250 ML IV STA ×2 (15:06→21:28)
[2020-09-27] MEDS: FENTANYL NS IVPB 500 MCG/100 ML BAG IVPB SCH (16:00)
[2020-09-27] MEDS: ATORVASTATIN CA 10 MG TABLET (FP) GT SCH (21:35)
[2020-09-27] MEDS: CHLORHEXIDINE GLUCONATE 4% CLEANSER FOR DECOLONIZATION TP SCH (21:35)
[2020-09-27] MEDS: FAMOTIDINE 20 MG/50 ML IVPB 20 MG/50 ML MG IVPB SCH (21:36)
[2020-09-27] MEDS ORDERED: INSULIN (NOVOLOG) ASPART 100 UNITS/ML 10ML VIAL ONE (22:10)
[2020-09-27] MEDS: NOREPINEPHRINE NS PREMIX 8,000 MCG/500 ML BAG IVPB SCH (23:58)
[2020-09-28] MEDS: PROPOFOL 1,000,000 MCG/100 ML VIAL IVPB SCH (04:23)
[2020-09-28] MEDS ORDERED: INSULIN (NOVOLOG) ASPART 100 UNITS/ML 10ML VIAL ONE ×2 (05:24→19:42)
[2020-09-28] MEDS: BETHANECHOL CHLORIDE 25 MG TABLET GT SCH ×3 (06:49→22:14)
[2020-09-28] MEDS: GABAPENTIN 250 MG/5 ML ORAL SOLUTION, 470 ML BOTTLE GT SCH ×3 (06:49→22:14)
[2020-09-28] MEDS: INSULIN SLIDING SCALE (NOVOLOG) 1 VIAL SQ SCH ×4 (06:49→22:14)
[2020-09-28] MEDS: HEPARIN NA (PORCINE) 5,000 UNITS/ML 1ML VIAL SQ SCH ×3 (06:49→22:13)
[2020-09-28] MEDS: INSULIN (LEVEMIR) 100 UNITS/ML UNITS SQ SCH ×2 (06:49→22:13)
[2020-09-28 07:04] LABS: HEMATOCRIT 25.1 % (32.4-45.2); HEMOGLOBIN 8.6 GM/dL (10.7-15.3); MCH 31.5 pg (25.7-33.7); MCHC 34.3 g/dl (32.0-36.0); MEAN CELL VOLUME 91.8 fl (80-96); MEAN PLT VOLUME 10.5 fl (7.5-11.1); PLATELET COUNT 61 K/MM3 (134-434); RBC 2.74 M/mm3 (3.60-5.2); RDW 16.8 % (11.6-15.6)
[2020-09-28 07:24] LABS: ALBUMIN 2.2 g/dl (3.4-5.0); BLOOD UREA NITROGEN 29.4 mg/dL (7-18); CALCIUM 7.8 mg/dL (8.5-10.1)
[2020-09-28 07:27] LABS: CREATININE 0.4 mg/dL (0.55-1.3)
[2020-09-28 07:29] LABS: BILIRUBIN,TOTAL 0.7 mg/dL (0.2-1); TOT PROT 4.7 g/dl (6.4-8.2)
[2020-09-28] MEDS: KCL 10 MEQ IVPB 10 MEQ/100 ML INFUS.BAG IVPB SCH ×3 (08:16→13:28)
[2020-09-28] MEDS: AMINO ACIDS/PROTEIN HYDROLYS 30 ML LIQUID.PKT GT SCH (08:16)
[2020-09-28 08:56] LABS: MAGNESIUM 1.4 mg/dL (1.8-2.4)
[2020-09-28 09:00] LABS: PHOSPHOROUS 2.7 mg/dL (2.5-4.9)
[2020-09-28] MEDS: POLYETHYLENE GLYCOL 3350 119 GM BTL GT SCH ×2 (09:13→22:14)
[2020-09-28] MEDS: DEXAMETHASONE SOD PHOSPHATE 4 MG/1 ML VIAL IVPUSH SCH (09:13)
[2020-09-28] MEDS: CLOTRIMAZOLE 1% CREAM 15 GM TUBE TP SCH (09:13)
[2020-09-28] MEDS: THIAMINE HCL 100 MG TABLET (FP) NGT SCH (09:13)
[2020-09-28] MEDS: FERROUS SO4 300 MG/5 ML ORAL SOLN UNIT DOSE CUPS GT SCH (09:13)
[2020-09-28] MEDS: FOLIC ACID 1 MG TABLET (FP) GT SCH (09:13)
[2020-09-28] MEDS ORDERED: PT OWN MED DRAWER 7, Y5N ONE ×2 (14:01→19:41)
[2020-09-28] MEDS ORDERED: METOPROLOL TARTRATE 5 MG/5 ML VIAL IVPUSH PRN (14:02)
[2020-09-28] MEDS ORDERED: MAGNESIUM SULF 50% (8.12 MEQ/2 ML-1 GM VIAL) IVPB ONE (15:18)
[2020-09-28] MEDS: FENTANYL NS IVPB 500 MCG/100 ML BAG IVPB SCH (15:26)
[2020-09-28] MEDS: ERTAPENEM SODIUM 1 GM in SODIUM CHLORIDE 50 ML IVPB SCH (15:26)
[2020-09-28] MEDS: CHLORHEXIDINE GLUCONATE 4% CLEANSER FOR DECOLONIZATION TP SCH (22:13)
[2020-09-28] MEDS: FAMOTIDINE 20 MG/50 ML IVPB 20 MG/50 ML MG IVPB SCH (22:14)
[2020-09-28] MEDS: ATORVASTATIN CA 10 MG TABLET (FP) GT SCH (22:14)
[2020-09-29] MEDS: NOREPINEPHRINE NS PREMIX 8,000 MCG/500 ML BAG IVPB SCH (00:11)
[2020-09-29] MEDS: PROPOFOL 1,000,000 MCG/100 ML VIAL IVPB SCH ×2 (00:52→17:16)
[2020-09-29] MEDS ORDERED: INSULIN (NOVOLOG) ASPART 100 UNITS/ML 10ML VIAL ONE (01:02)
[2020-09-29] MEDS: HEPARIN NA (PORCINE) 5,000 UNITS/ML 1ML VIAL SQ SCH ×3 (06:19→22:49)
[2020-09-29] MEDS: GABAPENTIN 250 MG/5 ML ORAL SOLUTION, 470 ML BOTTLE GT SCH ×3 (06:19→22:48)
[2020-09-29] MEDS: BETHANECHOL CHLORIDE 25 MG TABLET GT SCH ×3 (06:19→22:47)
[2020-09-29] MEDS: INSULIN SLIDING SCALE (NOVOLOG) 1 VIAL SQ SCH ×4 (06:19→22:47)
[2020-09-29] MEDS: INSULIN (LEVEMIR) 100 UNITS/ML UNITS SQ SCH ×2 (06:19→22:50)
[2020-09-29 08:20] LABS: HEMATOCRIT 24.1 % (32.4-45.2); MCH 30.8 pg (25.7-33.7); MCHC 33.3 g/dl (32.0-36.0); MEAN CELL VOLUME 92.6 fl (80-96); MEAN PLT VOLUME 10.4 fl (7.5-11.1); PLATELET COUNT 43 K/MM3 (134-434); RDW 17.2 % (11.6-15.6); WHITE BLOOD COUNT 10.6 K/mm3 (4.0-10.0)
[2020-09-29 08:28] LABS: BLOOD UREA NITROGEN 29.4 mg/dL (7-18); MAGNESIUM 1.6 mg/dL (1.8-2.4)
[2020-09-29 08:31] LABS: CREATININE 0.4 mg/dL (0.55-1.3); PHOSPHOROUS 2.6 mg/dL (2.5-4.9)
[2020-09-29 08:32] LABS: BILIRUBIN,TOTAL 0.8 mg/dL (0.2-1); TOT PROT 4.6 g/dl (6.4-8.2)
[2020-09-29] MEDS: AMINO ACIDS/PROTEIN HYDROLYS 30 ML LIQUID.PKT GT SCH (09:33)
[2020-09-29] MEDS: FERROUS SO4 300 MG/5 ML ORAL SOLN UNIT DOSE CUPS GT SCH (09:33)
[2020-09-29] MEDS: ERTAPENEM SODIUM 1 GM in SODIUM CHLORIDE 50 ML IVPB SCH (09:34)
[2020-09-29] MEDS: THIAMINE HCL 100 MG TABLET (FP) NGT SCH (09:41)
[2020-09-29] MEDS: FOLIC ACID 1 MG TABLET (FP) GT SCH (09:41)
[2020-09-29] MEDS: DEXAMETHASONE SOD PHOSPHATE 4 MG/1 ML VIAL IVPUSH SCH (09:42)
[2020-09-29] MEDS: POLYETHYLENE GLYCOL 3350 119 GM BTL GT SCH ×2 (09:42→21:34)
[2020-09-29] MEDS: CLOTRIMAZOLE 1% CREAM 15 GM TUBE TP SCH (09:42)
[2020-09-29] MEDS: FENTANYL NS IVPB 500 MCG/100 ML BAG IVPB SCH ×2 (09:43→17:10)
[2020-09-29] MEDS ORDERED: PIPERACILLIN/TAZOB 3.375 GM 3.375 GM in DEXTROSE 5%-WATER - 50 ML IVPB SCH (18:00)
[2020-09-29] MEDS: FAMOTIDINE 20 MG/50 ML IVPB 20 MG/50 ML MG IVPB SCH (21:08)
[2020-09-29] MEDS: CHLORHEXIDINE GLUCONATE 4% CLEANSER FOR DECOLONIZATION TP SCH (21:34)
[2020-09-29] MEDS ORDERED: PT OWN MED DRAWER 7, Y5N ONE (22:16)
[2020-09-29] MEDS: ATORVASTATIN CA 10 MG TABLET (FP) GT SCH (22:48)
[2020-09-30] MEDS: GABAPENTIN 250 MG/5 ML ORAL SOLUTION, 470 ML BOTTLE GT SCH ×3 (06:33→22:10)
[2020-09-30] MEDS: BETHANECHOL CHLORIDE 25 MG TABLET GT SCH ×3 (06:33→22:14)
[2020-09-30] MEDS: HEPARIN NA (PORCINE) 5,000 UNITS/ML 1ML VIAL SQ SCH ×3 (06:33→22:09)
[2020-09-30] MEDS: INSULIN SLIDING SCALE (NOVOLOG) 1 VIAL SQ SCH ×4 (06:33→22:10)
[2020-09-30] MEDS: INSULIN (LEVEMIR) 100 UNITS/ML UNITS SQ SCH ×2 (06:34→22:13)
[2020-09-30 07:04] LABS: HEMOGLOBIN 7.6 GM/dL (10.7-15.3); MCH 30.8 pg (25.7-33.7); MCHC 33.1 g/dl (32.0-36.0); MEAN PLT VOLUME 9.9 fl (7.5-11.1); PLATELET COUNT 43 K/MM3 (134-434); RBC 2.47 M/mm3 (3.60-5.2); RDW 17.3 % (11.6-15.6); WHITE BLOOD COUNT 7.5 K/mm3 (4.0-10.0)
[2020-09-30 07:25] LABS: CALCIUM 7.2 mg/dL (8.5-10.1)
[2020-09-30 07:26] LABS: BLOOD UREA NITROGEN 24.8 mg/dL (7-18); MAGNESIUM 1.2 mg/dL (1.8-2.4)
[2020-09-30 07:27] LABS: BILIRUBIN,TOTAL 0.4 mg/dL (0.2-1); TOT PROT 4.4 g/dl (6.4-8.2)
[2020-09-30 07:29] LABS: CREATININE 0.3 mg/dL (0.55-1.3); PHOSPHOROUS 2.6 mg/dL (2.5-4.9)
[2020-09-30] MEDS ORDERED: MAGNESIUM SULF 50% (8.12 MEQ/2 ML-1 GM VIAL) IVPB ONE (07:58)
[2020-09-30] MEDS ORDERED: PT OWN MED DRAWER 7, Y5N ONE (09:19)
[2020-09-30] MEDS: ERTAPENEM SODIUM 1 GM in SODIUM CHLORIDE 50 ML IVPB SCH (09:25)
[2020-09-30] MEDS: AMINO ACIDS/PROTEIN HYDROLYS 30 ML LIQUID.PKT GT SCH ×2 (09:26→22:09)
[2020-09-30] MEDS: FOLIC ACID 1 MG TABLET (FP) GT SCH (09:27)
[2020-09-30] MEDS: THIAMINE HCL 100 MG TABLET (FP) NGT SCH (09:27)
[2020-09-30] MEDS: POLYETHYLENE GLYCOL 3350 119 GM BTL GT SCH ×2 (09:27→22:12)
[2020-09-30] MEDS: CLOTRIMAZOLE 1% CREAM 15 GM TUBE TP SCH (09:27)
[2020-09-30] MEDS: DEXAMETHASONE SOD PHOSPHATE 4 MG/1 ML VIAL IVPUSH SCH (09:27)
[2020-09-30] MEDS: FERROUS SO4 300 MG/5 ML ORAL SOLN UNIT DOSE CUPS GT SCH (09:27)
[2020-09-30 12:38] VITALS: BMI 24.5
[2020-09-30] MEDS: FENTANYL NS IVPB 500 MCG/100 ML BAG IVPB SCH (15:00)
[2020-09-30] MEDS: PROPOFOL 1,000,000 MCG/100 ML VIAL IVPB SCH (16:39)
[2020-09-30] MEDS: NOREPINEPHRINE NS PREMIX 8,000 MCG/500 ML BAG IVPB SCH (16:41)
[2020-09-30] MEDS: MIDAZOLAM 100 MG/100 ML MG IVPB SCH (18:17)
[2020-09-30] MEDS: FAMOTIDINE 20 MG/50 ML IVPB 20 MG/50 ML MG IVPB SCH (22:10)
[2020-09-30] MEDS: ATORVASTATIN CA 10 MG TABLET (FP) GT SCH (22:13)
[2020-09-30] MEDS: CHLORHEXIDINE GLUCONATE 4% CLEANSER FOR DECOLONIZATION TP SCH (22:13)
[2020-10-01] MEDS: HEPARIN NA (PORCINE) 5,000 UNITS/ML 1ML VIAL SQ SCH ×3 (06:59→21:47)
[2020-10-01] MEDS: GABAPENTIN 250 MG/5 ML ORAL SOLUTION, 470 ML BOTTLE GT SCH ×3 (06:59→21:48)
[2020-10-01] MEDS: INSULIN (LEVEMIR) 100 UNITS/ML UNITS SQ SCH ×2 (07:00→21:47)
[2020-10-01] MEDS: BETHANECHOL CHLORIDE 25 MG TABLET GT SCH ×3 (07:00→21:49)
[2020-10-01] MEDS: INSULIN SLIDING SCALE (NOVOLOG) 1 VIAL SQ SCH ×4 (07:01→21:55)
[2020-10-01] MEDS: NYSTATIN 100,000 UNIT/GM TOPICAL CREAM 15 GM TUBE TP SCH ×3 (07:01→21:48)
[2020-10-01 07:16] LABS: HEMATOCRIT 22.9 % (32.4-45.2); HEMOGLOBIN 7.7 GM/dL (10.7-15.3); MCH 30.9 pg (25.7-33.7); MCHC 33.5 g/dl (32.0-36.0); MEAN CELL VOLUME 92.3 fl (80-96); PLATELET COUNT 44 K/MM3 (134-434); RBC 2.48 M/mm3 (3.60-5.2); RDW 16.7 % (11.6-15.6); WHITE BLOOD COUNT 6.5 K/mm3 (4.0-10.0)
[2020-10-01 07:34] LABS: ALBUMIN 1.9 g/dl (3.4-5.0); BLOOD UREA NITROGEN 21.3 mg/dL (7-18); CALCIUM 7.3 mg/dL (8.5-10.1); MAGNESIUM 1.5 mg/dL (1.8-2.4)
[2020-10-01 07:39] LABS: BILIRUBIN,TOTAL 0.4 mg/dL (0.2-1); CREATININE 0.3 mg/dL (0.55-1.3); PHOSPHOROUS 2.5 mg/dL (2.5-4.9); TOT PROT 4.6 g/dl (6.4-8.2)
[2020-10-01] MEDS ORDERED: MAGNESIUM SULF 50% (8.12 MEQ/2 ML-1 GM VIAL) IVPB ONE ×2 (07:47→18:00)
[2020-10-01] MEDS: PROPOFOL 1,000,000 MCG/100 ML VIAL IVPB SCH ×2 (08:25→16:12)
[2020-10-01] MEDS: KCL 10 MEQ IVPB 10 MEQ/100 ML INFUS.BAG IVPB SCH ×3 (08:26→09:05)
[2020-10-01] MEDS: THIAMINE HCL 100 MG TABLET (FP) NGT SCH (09:03)
[2020-10-01] MEDS: FOLIC ACID 1 MG TABLET (FP) GT SCH (09:03)
[2020-10-01] MEDS: DEXAMETHASONE SOD PHOSPHATE 4 MG/1 ML VIAL IVPUSH SCH (09:03)
[2020-10-01] MEDS: CLOTRIMAZOLE 1% CREAM 15 GM TUBE TP SCH (09:05)
[2020-10-01] MEDS: POLYETHYLENE GLYCOL 3350 119 GM BTL GT SCH ×2 (09:05→21:48)
[2020-10-01] MEDS ORDERED: PT OWN MED DRAWER 7, Y5N ONE (09:07)
[2020-10-01] MEDS: ERTAPENEM SODIUM 1 GM in SODIUM CHLORIDE 50 ML IVPB SCH (09:08)
[2020-10-01] MEDS: FERROUS SO4 300 MG/5 ML ORAL SOLN UNIT DOSE CUPS GT SCH (09:08)
[2020-10-01] MEDS: AMINO ACIDS/PROTEIN HYDROLYS 30 ML LIQUID.PKT GT SCH ×2 (09:12→21:49)
[2020-10-01] MEDS: FENTANYL NS IVPB 500 MCG/100 ML BAG IVPB SCH ×2 (13:46→16:14)
[2020-10-01] MEDS: MIDAZOLAM 100 MG/100 ML MG IVPB SCH (16:12)
[2020-10-01] MEDS: CHLORHEXIDINE GLUCONATE 4% CLEANSER FOR DECOLONIZATION TP SCH (21:47)
[2020-10-01] MEDS: ATORVASTATIN CA 10 MG TABLET (FP) GT SCH (21:48)
[2020-10-01] MEDS: FAMOTIDINE 20 MG/50 ML IVPB 20 MG/50 ML MG IVPB SCH (21:49)
[2020-10-02] MEDS: GABAPENTIN 250 MG/5 ML ORAL SOLUTION, 470 ML BOTTLE GT SCH ×3 (05:32→21:25)
[2020-10-02] MEDS: BETHANECHOL CHLORIDE 25 MG TABLET GT SCH ×3 (05:32→21:25)
[2020-10-02] MEDS: HEPARIN NA (PORCINE) 5,000 UNITS/ML 1ML VIAL SQ SCH ×3 (05:32→21:19)
[2020-10-02] MEDS: INSULIN SLIDING SCALE (NOVOLOG) 1 VIAL SQ SCH ×4 (06:06→21:43)
[2020-10-02] MEDS: INSULIN (LEVEMIR) 100 UNITS/ML UNITS SQ SCH ×2 (06:07→21:44)
[2020-10-02 07:03] LABS: HEMATOCRIT 22.7 % (32.4-45.2); HEMOGLOBIN 7.9 GM/dL (10.7-15.3); MCH 31.8 pg (25.7-33.7); MCHC 34.9 g/dl (32.0-36.0); MEAN CELL VOLUME 91.1 fl (80-96); MEAN PLT VOLUME 9.7 fl (7.5-11.1); PLATELET COUNT 59 K/MM3 (134-434); RBC 2.49 M/mm3 (3.60-5.2); RDW 16.4 % (11.6-15.6); WHITE BLOOD COUNT 5.6 K/mm3 (4.0-10.0)
[2020-10-02 07:11] LABS: BLOOD UREA NITROGEN 22.2 mg/dL (7-18); CALCIUM 7.5 mg/dL (8.5-10.1); MAGNESIUM 1.6 mg/dL (1.8-2.4)
[2020-10-02 07:12] LABS: BILIRUBIN,TOTAL 0.4 mg/dL (0.2-1); TOT PROT 5.1 g/dl (6.4-8.2)
[2020-10-02 07:13] LABS: CREATININE 0.4 mg/dL (0.55-1.3)
[2020-10-02 07:14] LABS: PHOSPHOROUS 2.2 mg/dL (2.5-4.9)
[2020-10-02] MEDS ORDERED: PT OWN MED DRAWER 7, Y5N ONE (09:30)
[2020-10-02] MEDS: AMINO ACIDS/PROTEIN HYDROLYS 30 ML LIQUID.PKT GT SCH ×2 (09:44→21:19)
[2020-10-02] MEDS: ERTAPENEM SODIUM 1 GM in SODIUM CHLORIDE 50 ML IVPB SCH (09:44)
[2020-10-02] MEDS: CLOTRIMAZOLE 1% CREAM 15 GM TUBE TP SCH (09:45)
[2020-10-02] MEDS: THIAMINE HCL 100 MG TABLET (FP) NGT SCH (09:45)
[2020-10-02] MEDS: POLYETHYLENE GLYCOL 3350 119 GM BTL GT SCH (09:45)
[2020-10-02] MEDS: FOLIC ACID 1 MG TABLET (FP) GT SCH (09:45)
[2020-10-02] MEDS: FERROUS SO4 300 MG/5 ML ORAL SOLN UNIT DOSE CUPS GT SCH (09:45)
[2020-10-02] MEDS: PROPOFOL 1,000,000 MCG/100 ML VIAL IVPB SCH (09:45)
[2020-10-02] MEDS: DEXAMETHASONE SOD PHOSPHATE 4 MG/1 ML VIAL IVPUSH SCH (09:45)
[2020-10-02] MEDS: NYSTATIN 100,000 UNIT/GM TOPICAL CREAM 15 GM TUBE TP SCH ×2 (09:46→21:25)
[2020-10-02] MEDS: FENTANYL NS IVPB 500 MCG/100 ML BAG IVPB SCH ×3 (09:47→18:28)
[2020-10-02] MEDS ORDERED: MAGNESIUM SULF 50% (8.12 MEQ/2 ML-1 GM VIAL) IVPB ONE (11:32)
[2020-10-02] MEDS ORDERED: POTASSIUM PHOSPHATE 30 MM in DEXTROSE 5%-WATER - 250 ML IVPB ONE (11:33)
[2020-10-02] MEDS ORDERED: KCL 10 MEQ IVPB 10 MEQ/100 ML INFUS.BAG IVPB SCH (11:45)
[2020-10-02] MEDS: CHLORHEXIDINE GLUCONATE 4% CLEANSER FOR DECOLONIZATION TP SCH (21:07)
[2020-10-02] MEDS: ATORVASTATIN CA 10 MG TABLET (FP) GT SCH (21:19)
[2020-10-02] MEDS: FAMOTIDINE 20 MG/50 ML IVPB 20 MG/50 ML MG IVPB SCH (21:20)
[2020-10-03] MEDS: BETHANECHOL CHLORIDE 25 MG TABLET GT SCH ×3 (05:37→21:22)
[2020-10-03] MEDS: HEPARIN NA (PORCINE) 5,000 UNITS/ML 1ML VIAL SQ SCH ×3 (05:37→21:17)
[2020-10-03] MEDS: GABAPENTIN 250 MG/5 ML ORAL SOLUTION, 470 ML BOTTLE GT SCH ×3 (05:37→21:21)
[2020-10-03 05:42] LABS: ARTERIAL BLD GAS O2 SATURATION 98.5 mmHg (95-98); ARTERIAL BLOOD GAS BASE EXCESS 3.1 mmol/L (-2-2); ARTERIAL BLOOD GAS PO2 111.6 mmHg (80-100); ARTERIAL BLOOD GAS pH 7.502 (7.350-7.450)
[2020-10-03 05:44] LABS: ALLENS TEST POSITIVE; VENT MODE PC; VENT RATE 18
[2020-10-03] MEDS: INSULIN (LEVEMIR) 100 UNITS/ML UNITS SQ SCH ×2 (06:09→21:40)
[2020-10-03] MEDS: INSULIN SLIDING SCALE (NOVOLOG) 1 VIAL SQ SCH ×4 (06:09→21:40)
[2020-10-03] MEDS: MIDAZOLAM 100 MG/100 ML MG IVPB SCH (07:10)
[2020-10-03] MEDS: NOREPINEPHRINE NS PREMIX 8,000 MCG/500 ML BAG IVPB SCH (07:16)
[2020-10-03] MEDS: PROPOFOL 1,000,000 MCG/100 ML VIAL IVPB SCH ×2 (07:18)
[2020-10-03] MEDS: DEXAMETHASONE SOD PHOSPHATE 4 MG/1 ML VIAL IVPUSH SCH (10:22)
[2020-10-03] MEDS: FERROUS SO4 300 MG/5 ML ORAL SOLN UNIT DOSE CUPS GT SCH (10:22)
[2020-10-03] MEDS: FOLIC ACID 1 MG TABLET (FP) GT SCH (10:22)
[2020-10-03] MEDS: NYSTATIN 100,000 UNIT/GM TOPICAL CREAM 15 GM TUBE TP SCH ×2 (10:24→21:17)
[2020-10-03] MEDS: THIAMINE HCL 100 MG TABLET (FP) NGT SCH (10:24)
[2020-10-03] MEDS: ERTAPENEM SODIUM 1 GM in SODIUM CHLORIDE 50 ML IVPB SCH (10:24)
[2020-10-03] MEDS: AMINO ACIDS/PROTEIN HYDROLYS 30 ML LIQUID.PKT GT SCH ×2 (10:24→21:22)
[2020-10-03] MEDS: CLOTRIMAZOLE 1% CREAM 15 GM TUBE TP SCH (10:24)
[2020-10-03] MEDS ORDERED: FENTANYL NS IVPB 500 MCG/100 ML BAG IVPB ONE ×2 (16:15→20:54)
[2020-10-03] MEDS: FENTANYL NS IVPB 500 MCG/100 ML BAG IVPB SCH ×2 (16:17)
[2020-10-03] MEDS ORDERED: MIDAZOLAM IN 0.9 % SOD.CHLORID 1 MG/1 ML PLAST..BAG ONE (20:54)
[2020-10-03] MEDS: FAMOTIDINE 20 MG/50 ML IVPB 20 MG/50 ML MG IVPB SCH (21:17)
[2020-10-03] MEDS: ATORVASTATIN CA 10 MG TABLET (FP) GT SCH (21:17)
[2020-10-03] MEDS: CHLORHEXIDINE GLUCONATE 4% CLEANSER FOR DECOLONIZATION TP SCH (21:17)
[2020-10-03] MEDS ORDERED: INSULIN (NOVOLOG) ASPART 100 UNITS/ML 10ML VIAL ONE ×2 (21:19→23:17)
[2020-10-03] MEDS ORDERED: PT OWN MED DRAWER 7, Y5N ONE (21:19)
[2020-10-04] MEDS ORDERED: FENTANYL NS IVPB 500 MCG/100 ML BAG IVPB ONE ×2 (01:17→03:38)
[2020-10-04 06:21] LABS: ARTERIAL BLD GAS O2 SATURATION 95.8 mmHg (95-98); ARTERIAL BLOOD GAS PO2 89.7 mmHg (80-100); ARTERIAL BLOOD GAS pH 7.291 (7.350-7.450)
[2020-10-04 06:22] LABS: ALLENS TEST POSITIVE
[2020-10-04 06:23] LABS: VENT MODE PC; VENT RATE 12
[2020-10-04] MEDS: HEPARIN NA (PORCINE) 5,000 UNITS/ML 1ML VIAL SQ SCH ×2 (06:28→21:31)
[2020-10-04] MEDS: BETHANECHOL CHLORIDE 25 MG TABLET GT SCH ×3 (06:29→21:08)
[2020-10-04] MEDS: GABAPENTIN 250 MG/5 ML ORAL SOLUTION, 470 ML BOTTLE GT SCH ×3 (06:29→21:08)
[2020-10-04] MEDS: INSULIN SLIDING SCALE (NOVOLOG) 1 VIAL SQ SCH ×4 (06:29→21:24)
[2020-10-04] MEDS: INSULIN (LEVEMIR) 100 UNITS/ML UNITS SQ SCH ×2 (06:29→21:24)
[2020-10-04 06:40] LABS: HEMATOCRIT 21.5 % (32.4-45.2); HEMOGLOBIN 7.4 GM/dL (10.7-15.3); MCH 31.3 pg (25.7-33.7); MCHC 34.3 g/dl (32.0-36.0); MEAN CELL VOLUME 91.2 fl (80-96); MEAN PLT VOLUME 8.7 fl (7.5-11.1); PLATELET COUNT 102 K/MM3 (134-434); RBC 2.36 M/mm3 (3.60-5.2); RDW 15.9 % (11.6-15.6); WHITE BLOOD COUNT 4.4 K/mm3 (4.0-10.0)
[2020-10-04 06:50] LABS: PROTHROMBIN TIME (PATIENT) 12.3 SEC (9.7-13.0)
[2020-10-04 07:02] LABS: BLOOD UREA NITROGEN 22.8 mg/dL (7-18); CALCIUM 7.6 mg/dL (8.5-10.1); MAGNESIUM 1.3 mg/dL (1.8-2.4)
[2020-10-04 07:05] LABS: CREATININE 0.2 mg/dL (0.55-1.3); PHOSPHOROUS 3.7 mg/dL (2.5-4.9)
[2020-10-04] MEDS ORDERED: PT OWN MED DRAWER 7, Y5N ONE ×2 (08:49→21:06)
[2020-10-04] MEDS: ERTAPENEM SODIUM 1 GM in SODIUM CHLORIDE 50 ML IVPB SCH (09:04)
[2020-10-04] MEDS: DEXAMETHASONE SOD PHOSPHATE 4 MG/1 ML VIAL IVPUSH SCH (09:04)
[2020-10-04] MEDS: KCL 10 MEQ IVPB 10 MEQ/100 ML INFUS.BAG IVPB SCH ×3 (09:45→12:45)
[2020-10-04] MEDS: AMINO ACIDS/PROTEIN HYDROLYS 30 ML LIQUID.PKT GT SCH ×2 (10:53→21:08)
[2020-10-04] MEDS: FOLIC ACID 1 MG TABLET (FP) GT SCH (10:53)
[2020-10-04] MEDS: THIAMINE HCL 100 MG TABLET (FP) NGT SCH (10:53)
[2020-10-04] MEDS: FERROUS SO4 300 MG/5 ML ORAL SOLN UNIT DOSE CUPS GT SCH (10:53)
[2020-10-04] MEDS: NYSTATIN 100,000 UNIT/GM TOPICAL CREAM 15 GM TUBE TP SCH ×2 (11:00→21:24)
[2020-10-04] MEDS: CLOTRIMAZOLE 1% CREAM 15 GM TUBE TP SCH (11:00)
[2020-10-04] MEDS ORDERED: ROCURONIUM BROMIDE 50 MG/5 ML VIAL IVPUSH ONE (11:24)
[2020-10-04] MEDS ORDERED: ROCURONIUM BROMIDE 100 MG/10 ML VIAL IV ONE (11:45)
[2020-10-04] MEDS: PROPOFOL 1,000,000 MCG/100 ML VIAL IVPB SCH (13:28)
[2020-10-04] MEDS: FENTANYL NS IVPB 500 MCG/100 ML BAG IVPB SCH ×2 (15:02→20:14)
[2020-10-04] MEDS: MIDAZOLAM 100 MG/100 ML MG IVPB SCH (17:50)
[2020-10-04] MEDS: NOREPINEPHRINE NS PREMIX 8,000 MCG/500 ML BAG IVPB SCH (17:52)
[2020-10-04] MEDS ORDERED: MAGNESIUM SULF 50% (8.12 MEQ/2 ML-1 GM VIAL) IVPB ONE (18:19)
[2020-10-04] MEDS: FAMOTIDINE 20 MG/50 ML IVPB 20 MG/50 ML MG IVPB SCH (21:08)
[2020-10-04] MEDS: ATORVASTATIN CA 10 MG TABLET (FP) GT SCH (21:08)
[2020-10-04] MEDS: CHLORHEXIDINE GLUCONATE 4% CLEANSER FOR DECOLONIZATION TP SCH (21:24)
[2020-10-05] MEDS: BETHANECHOL CHLORIDE 25 MG TABLET GT SCH ×3 (05:22→21:02)
[2020-10-05] MEDS: HEPARIN NA (PORCINE) 5,000 UNITS/ML 1ML VIAL SQ SCH ×3 (05:22→21:02)
[2020-10-05] MEDS: GABAPENTIN 250 MG/5 ML ORAL SOLUTION, 470 ML BOTTLE GT SCH ×3 (05:22→21:02)
[2020-10-05] MEDS: INSULIN SLIDING SCALE (NOVOLOG) 1 VIAL SQ SCH ×4 (06:11→21:20)
[2020-10-05] MEDS: INSULIN (LEVEMIR) 100 UNITS/ML UNITS SQ SCH ×2 (06:11→21:19)
[2020-10-05 06:12] LABS: ARTERIAL BLOOD GAS BASE EXCESS -0.1 mmol/L (-2-2); ARTERIAL BLOOD GAS PO2 67.2 mmHg (80-100); ARTERIAL BLOOD GAS pH 7.335 (7.350-7.450)
[2020-10-05 06:15] LABS: ALLENS TEST POSITIVE; VENT MODE A/C VC; VENT RATE 14
[2020-10-05] MEDS ORDERED: MIDAZOLAM IN 0.9 % SOD.CHLORID 100 MG/100 ML PLAST..BAG IVPB SCH (06:15)
[2020-10-05 06:56] LABS: BASO % 0.5 % (0-2.0); EOS % 9.9 % (0-4.5); HEMATOCRIT 21.5 % (32.4-45.2); HEMOGLOBIN 7.2 GM/dL (10.7-15.3); LYMPH % 12.6 % (8-40); MCH 31.1 pg (25.7-33.7); MCHC 33.7 g/dl (32.0-36.0); MEAN CELL VOLUME 92.5 fl (80-96); MEAN PLT VOLUME 8.8 fl (7.5-11.1); MONO % 7.6 % (3.8-10.2); NEUT % 69.4 % (42.8-82.8); PLATELET COUNT 125 K/MM3 (134-434); RBC 2.32 M/mm3 (3.60-5.2); RDW 16.7 % (11.6-15.6); WHITE BLOOD COUNT 3.7 K/mm3 (4.0-10.0)
[2020-10-05 07:42] LABS: ALBUMIN 1.8 g/dl (3.4-5.0); CALCIUM 7.4 mg/dL (8.5-10.1)
[2020-10-05 07:45] LABS: CREATININE 0.3 mg/dL (0.55-1.3)
[2020-10-05 07:47] LABS: BILIRUBIN,TOTAL 0.4 mg/dL (0.2-1); TOT PROT 4.9 g/dl (6.4-8.2)
[2020-10-05 09:34] LABS: MAGNESIUM 1.5 mg/dL (1.8-2.4)
[2020-10-05 09:37] LABS: PHOSPHOROUS 3.2 mg/dL (2.5-4.9)
[2020-10-05] MEDS ORDERED: PT OWN MED DRAWER 7, Y5N ONE ×2 (09:38→20:47)
[2020-10-05] MEDS: ERTAPENEM SODIUM 1 GM in SODIUM CHLORIDE 50 ML IVPB SCH (09:46)
[2020-10-05] MEDS: FERROUS SO4 300 MG/5 ML ORAL SOLN UNIT DOSE CUPS GT SCH (09:49)
[2020-10-05] MEDS: THIAMINE HCL 100 MG TABLET (FP) NGT SCH (09:49)
[2020-10-05] MEDS: AMINO ACIDS/PROTEIN HYDROLYS 30 ML LIQUID.PKT GT SCH ×2 (09:49→21:02)
[2020-10-05] MEDS: NYSTATIN 100,000 UNIT/GM TOPICAL CREAM 15 GM TUBE TP SCH ×2 (09:50→21:03)
[2020-10-05] MEDS: CLOTRIMAZOLE 1% CREAM 15 GM TUBE TP SCH (09:50)
[2020-10-05] MEDS: DEXAMETHASONE SOD PHOSPHATE 4 MG/1 ML VIAL IVPUSH SCH (09:50)
[2020-10-05] MEDS: FOLIC ACID 1 MG TABLET (FP) GT SCH (09:50)
[2020-10-05] MEDS: FENTANYL NS IVPB 500 MCG/100 ML BAG IVPB SCH (12:35)
[2020-10-05] MEDS ORDERED: MORPHINE SULFATE 2 MG/ML VIAL IVPUSH PRN (14:25)
[2020-10-05] MEDS ORDERED: MIDAZOLAM IN 0.9 % SOD.CHLORID 1 MG/1 ML PLAST..BAG ONE (15:33)
[2020-10-05] MEDS: LORazepam 2 MG/ML SDV VIAL IVPUSH SCH ×2 (17:36→21:03)
[2020-10-05] MEDS: FAMOTIDINE 20 MG/50 ML IVPB 20 MG/50 ML MG IVPB SCH (21:02)
[2020-10-05] MEDS: CHLORHEXIDINE GLUCONATE 4% CLEANSER FOR DECOLONIZATION TP SCH (21:03)
[2020-10-05] MEDS: ATORVASTATIN CA 10 MG TABLET (FP) GT SCH (21:03)
[2020-10-06] MEDS ORDERED: MIDAZOLAM IN 0.9 % SOD.CHLORID 100 MG/100 ML PLAST..BAG IVPB SCH (00:30)
[2020-10-06] MEDS: LORazepam 2 MG/ML SDV VIAL IVPUSH SCH ×4 (04:50→21:52)
[2020-10-06] MEDS: GABAPENTIN 250 MG/5 ML ORAL SOLUTION, 470 ML BOTTLE GT SCH ×3 (05:19→21:53)
[2020-10-06] MEDS: BETHANECHOL CHLORIDE 25 MG TABLET GT SCH ×3 (05:19→21:54)
[2020-10-06] MEDS: HEPARIN NA (PORCINE) 5,000 UNITS/ML 1ML VIAL SQ SCH ×3 (05:50→21:52)
[2020-10-06 06:12] LABS: ARTERIAL BLD GAS O2 SATURATION 93.8 mmHg (95-98); ARTERIAL BLOOD GAS BASE EXCESS 5.7 mmol/L (-2-2); ARTERIAL BLOOD GAS PO2 69.7 mmHg (80-100); ARTERIAL BLOOD GAS pH 7.401 (7.350-7.450)
[2020-10-06] MEDS: INSULIN (LEVEMIR) 100 UNITS/ML UNITS SQ SCH ×2 (06:20→21:53)
[2020-10-06] MEDS: INSULIN SLIDING SCALE (NOVOLOG) 1 VIAL SQ SCH ×4 (06:24→21:54)
[2020-10-06 06:39] LABS: ALLENS TEST POSITIVE
[2020-10-06 06:40] LABS: VENT MODE A/C VC
[2020-10-06 06:41] LABS: VENT RATE 14
[2020-10-06 07:26] LABS: BASO % 0.2 % (0-2.0); EOS % 7.5 % (0-4.5); HEMATOCRIT 20.7 % (32.4-45.2); LYMPH % 14.6 % (8-40); MCHC 33.7 g/dl (32.0-36.0); MEAN CELL VOLUME 91.9 fl (80-96); MEAN PLT VOLUME 8.8 fl (7.5-11.1); MONO % 8.3 % (3.8-10.2); NEUT % 69.4 % (42.8-82.8); PLATELET COUNT 144 K/MM3 (134-434); RBC 2.25 M/mm3 (3.60-5.2); RDW 16.6 % (11.6-15.6); WHITE BLOOD COUNT 3.9 K/mm3 (4.0-10.0)
[2020-10-06 07:47] LABS: CALCIUM 7.1 mg/dL (8.5-10.1)
[2020-10-06 07:48] LABS: ALBUMIN 1.9 g/dl (3.4-5.0); BLOOD UREA NITROGEN 19.4 mg/dL (7-18)
[2020-10-06 07:51] LABS: CREATININE 0.3 mg/dL (0.55-1.3); PHOSPHOROUS 2.7 mg/dL (2.5-4.9)
[2020-10-06 07:52] LABS: BILIRUBIN,TOTAL 0.3 mg/dL (0.2-1); TOT PROT 5.2 g/dl (6.4-8.2)
[2020-10-06] MEDS ORDERED: MAGNESIUM SULF 50% (8.12 MEQ/2 ML-1 GM VIAL) IVPB ONE (08:23)
[2020-10-06] MEDS ORDERED: PT OWN MED DRAWER 7, Y5N ONE ×2 (08:39→13:42)
[2020-10-06] MEDS: KCL 10 MEQ IVPB 10 MEQ/100 ML INFUS.BAG IVPB SCH ×3 (08:45→10:53)
[2020-10-06] MEDS: FENTANYL NS IVPB 500 MCG/100 ML BAG IVPB SCH (08:45)
[2020-10-06] MEDS: FOLIC ACID 1 MG TABLET (FP) GT SCH (09:50)
[2020-10-06] MEDS: FERROUS SO4 300 MG/5 ML ORAL SOLN UNIT DOSE CUPS GT SCH (09:50)
[2020-10-06] MEDS: DEXAMETHASONE SOD PHOSPHATE 4 MG/1 ML VIAL IVPUSH SCH (09:50)
[2020-10-06] MEDS: THIAMINE HCL 100 MG TABLET (FP) NGT SCH (09:50)
[2020-10-06] MEDS: CLOTRIMAZOLE 1% CREAM 15 GM TUBE TP SCH (09:51)
[2020-10-06] MEDS: ERTAPENEM SODIUM 1 GM in SODIUM CHLORIDE 50 ML IVPB SCH (09:51)
[2020-10-06] MEDS: NYSTATIN 100,000 UNIT/GM TOPICAL CREAM 15 GM TUBE TP SCH ×2 (09:51→21:53)
[2020-10-06] MEDS: AMINO ACIDS/PROTEIN HYDROLYS 30 ML LIQUID.PKT GT SCH ×2 (09:51→21:54)
[2020-10-06] MEDS ORDERED: COLLAGENASE CLOSTRIDIUM HIST. 30 GRAMS TUBE TP SCH (10:00)
[2020-10-06] MEDS ORDERED: POTASSIUM CHLORIDE ORAL LIQUID 20 MEQ/15 ML PO ONE (13:22)
[2020-10-06] MEDS ORDERED: METOPROLOL TARTRATE 5 MG/5 ML VIAL IVPB PRN (21:48)
[2020-10-06] MEDS: CHLORHEXIDINE GLUCONATE 4% CLEANSER FOR DECOLONIZATION TP SCH (21:53)
[2020-10-06] MEDS: ATORVASTATIN CA 10 MG TABLET (FP) GT SCH (21:53)
[2020-10-06] MEDS: METOPROLOL TARTRATE 50 MG TABLET (FP) GT SCH (22:00)
[2020-10-06] MEDS ORDERED: GABAPENTIN 300 MG CAPSULE PO SCH (22:00)
[2020-10-06] MEDS: MAGNESIUM OXIDE 400 MG TABLET (FP) GT SCH (23:29)
[2020-10-06] MEDS ORDERED: MORPHINE SULFATE 2 MG/ML VIAL IVPUSH PRN (23:51)
[2020-10-07] MEDS: LORazepam 2 MG/ML SDV VIAL IVPUSH SCH ×4 (04:26→21:35)
[2020-10-07] MEDS: BETHANECHOL CHLORIDE 25 MG TABLET GT SCH ×3 (06:52→21:41)
[2020-10-07] MEDS: HEPARIN NA (PORCINE) 5,000 UNITS/ML 1ML VIAL SQ SCH ×3 (06:52→21:21)
[2020-10-07] MEDS: GABAPENTIN 250 MG/5 ML ORAL SOLUTION, 470 ML BOTTLE GT SCH ×3 (06:52→23:21)
[2020-10-07] MEDS: INSULIN (LEVEMIR) 100 UNITS/ML UNITS SQ SCH ×2 (06:55→21:53)
[2020-10-07] MEDS: INSULIN SLIDING SCALE (NOVOLOG) 1 VIAL SQ SCH ×4 (06:55→21:54)
[2020-10-07] MEDS ORDERED: PT OWN MED DRAWER 7, Y5N ONE ×2 (07:58→13:28)
[2020-10-07] MEDS ORDERED: INSULIN (NOVOLOG) ASPART 100 UNITS/ML 10ML VIAL ONE (07:59)
[2020-10-07 09:21] LABS: BASO % 0.9 % (0-2.0); HEMOGLOBIN 7.3 GM/dL (10.7-15.3); LYMPH % 11.5 % (8-40); MCH 31.2 pg (25.7-33.7); MCHC 34.6 g/dl (32.0-36.0); MEAN CELL VOLUME 90.3 fl (80-96); MONO % 6.9 % (3.8-10.2); NEUT % 75.7 % (42.8-82.8); PLATELET COUNT 182 K/MM3 (134-434); RBC 2.33 M/mm3 (3.60-5.2); RDW 16.1 % (11.6-15.6); WHITE BLOOD COUNT 4.9 K/mm3 (4.0-10.0)
[2020-10-07 09:47] LABS: ALBUMIN 1.8 g/dl (3.4-5.0); CALCIUM 7.5 mg/dL (8.5-10.1)
[2020-10-07 09:48] LABS: BLOOD UREA NITROGEN 13.5 mg/dL (7-18); MAGNESIUM 1.1 mg/dL (1.8-2.4)
[2020-10-07 09:50] LABS: PHOSPHOROUS 2.4 mg/dL (2.5-4.9)
[2020-10-07 09:51] LABS: CREATININE 0.2 mg/dL (0.55-1.3)
[2020-10-07 09:52] LABS: BILIRUBIN,TOTAL 0.6 mg/dL (0.2-1); TOT PROT 5.3 g/dl (6.4-8.2)
[2020-10-07] MEDS ORDERED: FERROUS SO4 325 MG TABLET (FP) PO SCH (10:00)
[2020-10-07] MEDS ORDERED: ERTAPENEM SODIUM 1 GM in SODIUM CHLORIDE 50 ML IVPB SCH (10:00)
[2020-10-07] MEDS: DEXAMETHASONE SOD PHOSPHATE 4 MG/1 ML VIAL IVPUSH SCH (10:35)
[2020-10-07] MEDS ORDERED: GlUCAGON HUMAN RECOMBINANT 1 MG/VIAL IVPUSH ONE (12:00)
[2020-10-07] MEDS ORDERED: MAGNESIUM SULF 50% (8.12 MEQ/2 ML-1 GM VIAL) IVPB ONE ×2 (12:29→22:00)
[2020-10-07 13:07] LABS: ANISOCYTOSIS 1+; MACROCYTOSIS 0; PLATELET ESTIMATE NORMAL
[2020-10-07] MEDS: FERROUS SO4 300 MG/5 ML ORAL SOLN UNIT DOSE CUPS GT SCH (14:24)
[2020-10-07] MEDS: AMINO ACIDS/PROTEIN HYDROLYS 30 ML LIQUID.PKT GT SCH ×2 (14:28→21:40)
[2020-10-07] MEDS: THIAMINE HCL 100 MG TABLET (FP) NGT SCH (14:28)
[2020-10-07] MEDS: FAMOTIDINE 40 MG/5 ML ORAL SUSPENSION NGT SCH (14:29)
[2020-10-07] MEDS: CYANOCOBALAMIN 1,000 MCG TABLET (FP) PO SCH (14:29)
[2020-10-07] MEDS: METOPROLOL TARTRATE 50 MG TABLET (FP) GT SCH ×2 (14:29→21:40)
[2020-10-07] MEDS: NAPH,MB-DB/K PH,MBDB POWDER PACKET PO SCH ×2 (14:29→21:40)
[2020-10-07] MEDS: MAGNESIUM OXIDE 400 MG TABLET (FP) GT SCH ×2 (14:29→21:40)
[2020-10-07] MEDS: FOLIC ACID 1 MG TABLET (FP) GT SCH (14:29)
[2020-10-07] MEDS: amLODIPine BESYLATE 10 MG TABLET (FP) GT SCH (14:30)
[2020-10-07] MEDS: CLOTRIMAZOLE 1% CREAM 15 GM TUBE TP SCH (14:31)
[2020-10-07] MEDS: NYSTATIN 100,000 UNIT/GM TOPICAL CREAM 15 GM TUBE TP SCH ×2 (14:31→23:21)
[2020-10-07] MEDS: COLLAGENASE CLOSTRIDIUM HIST. 30 GRAMS TUBE TP SCH (14:32)
[2020-10-07] MEDS: ATORVASTATIN CA 10 MG TABLET (FP) GT SCH (21:40)
[2020-10-07] MEDS ORDERED: CHLORHEXIDINE GLUCONATE 4% CLEANSER FOR DECOLONIZATION TP SCH (22:00)
[2020-10-08] MEDS: LORazepam 2 MG/ML SDV VIAL IVPUSH SCH ×4 (04:29→22:30)
[2020-10-08] MEDS: GABAPENTIN 250 MG/5 ML ORAL SOLUTION, 470 ML BOTTLE GT SCH ×3 (05:06→22:39)
[2020-10-08] MEDS: HEPARIN NA (PORCINE) 5,000 UNITS/ML 1ML VIAL SQ SCH ×3 (05:06→22:29)
[2020-10-08] MEDS: BETHANECHOL CHLORIDE 25 MG TABLET GT SCH ×3 (05:07→22:38)
[2020-10-08] MEDS: INSULIN SLIDING SCALE (NOVOLOG) 1 VIAL SQ SCH ×4 (06:01→22:32)
[2020-10-08] MEDS: INSULIN (LEVEMIR) 100 UNITS/ML UNITS SQ SCH ×2 (06:01→22:32)
[2020-10-08 08:41] LABS: ALBUMIN 1.8 g/dl (3.4-5.0); BLOOD UREA NITROGEN 17.5 mg/dL (7-18); CALCIUM 7.9 mg/dL (8.5-10.1); MAGNESIUM 2.1 mg/dL (1.8-2.4)
[2020-10-08 08:44] LABS: CREATININE 0.3 mg/dL (0.55-1.3)
[2020-10-08 08:46] LABS: BILIRUBIN,TOTAL 0.6 mg/dL (0.2-1); TOT PROT 5.5 g/dl (6.4-8.2)
[2020-10-08] MEDS ORDERED: PT OWN MED DRAWER 7, Y5N ONE ×2 (09:34→13:12)
[2020-10-08] MEDS: MAGNESIUM OXIDE 400 MG TABLET (FP) GT SCH ×2 (10:50→22:36)
[2020-10-08] MEDS: DEXAMETHASONE SOD PHOSPHATE 4 MG/1 ML VIAL IVPUSH SCH (10:50)
[2020-10-08] MEDS: amLODIPine BESYLATE 10 MG TABLET (FP) GT SCH (10:50)
[2020-10-08] MEDS: METOPROLOL TARTRATE 50 MG TABLET (FP) GT SCH ×2 (10:50→22:36)
[2020-10-08] MEDS: AMINO ACIDS/PROTEIN HYDROLYS 30 ML LIQUID.PKT GT SCH ×2 (10:51→22:36)
[2020-10-08] MEDS: THIAMINE HCL 100 MG TABLET (FP) NGT SCH (10:51)
[2020-10-08] MEDS: FAMOTIDINE 40 MG/5 ML ORAL SUSPENSION NGT SCH (10:51)
[2020-10-08] MEDS: FERROUS SO4 300 MG/5 ML ORAL SOLN UNIT DOSE CUPS GT SCH (10:51)
[2020-10-08] MEDS: NAPH,MB-DB/K PH,MBDB POWDER PACKET PO SCH (10:51)
[2020-10-08] MEDS: FOLIC ACID 1 MG TABLET (FP) GT SCH (10:51)
[2020-10-08] MEDS: CYANOCOBALAMIN 1,000 MCG TABLET (FP) PO SCH (10:51)
[2020-10-08] MEDS: COLLAGENASE CLOSTRIDIUM HIST. 30 GRAMS TUBE TP SCH (11:01)
[2020-10-08] MEDS: NYSTATIN 100,000 UNIT/GM TOPICAL CREAM 15 GM TUBE TP SCH ×2 (11:01→22:36)
[2020-10-08] MEDS: CLOTRIMAZOLE 1% CREAM 15 GM TUBE TP SCH (11:01)
[2020-10-08] MEDS ORDERED: POTASSIUM CHLORIDE ORAL LIQUID 20 MEQ/15 ML PO ONE (14:29)
[2020-10-08] MEDS: KCL 10 MEQ IVPB 10 MEQ/100 ML INFUS.BAG IVPB SCH ×2 (14:46→18:05)
[2020-10-08] MEDS ORDERED: ACETAMINOPHEN 650 MG/20.3 ML ORAL SOLUTION (CUPS) PO PRN (18:01)
[2020-10-08] MEDS: DEXTROSE 5%-NORMAL SALINE 1,000 ML IV SCH (18:05)
[2020-10-08] MEDS: ATORVASTATIN CA 10 MG TABLET (FP) GT SCH (22:36)
[2020-10-09] MEDS: INSULIN (LEVEMIR) 100 UNITS/ML UNITS SQ SCH ×3 (01:12→22:39)
[2020-10-09] MEDS: LORazepam 2 MG/ML SDV VIAL IVPUSH SCH ×4 (03:20→22:38)
[2020-10-09] MEDS: GABAPENTIN 250 MG/5 ML ORAL SOLUTION, 470 ML BOTTLE GT SCH ×3 (05:57→22:39)
[2020-10-09] MEDS: HEPARIN NA (PORCINE) 5,000 UNITS/ML 1ML VIAL SQ SCH ×3 (05:57→22:38)
[2020-10-09] MEDS: INSULIN SLIDING SCALE (NOVOLOG) 1 VIAL SQ SCH ×4 (06:03→22:40)
[2020-10-09] MEDS: BETHANECHOL CHLORIDE 25 MG TABLET GT SCH ×3 (06:25→22:40)
[2020-10-09] MEDS ORDERED: INSULIN (NOVOLOG) ASPART 100 UNITS/ML 10ML VIAL ONE (09:30)
[2020-10-09] MEDS: METOPROLOL TARTRATE 50 MG TABLET (FP) GT SCH ×2 (09:37→22:39)
[2020-10-09] MEDS: amLODIPine BESYLATE 10 MG TABLET (FP) GT SCH (09:37)
[2020-10-09] MEDS: MAGNESIUM OXIDE 400 MG TABLET (FP) GT SCH ×2 (09:37→22:39)
[2020-10-09] MEDS: FOLIC ACID 1 MG TABLET (FP) GT SCH (09:37)
[2020-10-09] MEDS: AMINO ACIDS/PROTEIN HYDROLYS 30 ML LIQUID.PKT GT SCH ×2 (09:37→22:40)
[2020-10-09] MEDS: DEXAMETHASONE SOD PHOSPHATE 4 MG/1 ML VIAL IVPUSH SCH (09:37)
[2020-10-09] MEDS: FERROUS SO4 300 MG/5 ML ORAL SOLN UNIT DOSE CUPS GT SCH (09:37)
[2020-10-09] MEDS: CYANOCOBALAMIN 1,000 MCG TABLET (FP) PO SCH (09:37)
[2020-10-09] MEDS: THIAMINE HCL 100 MG TABLET (FP) NGT SCH (09:37)
[2020-10-09] MEDS: COLLAGENASE CLOSTRIDIUM HIST. 30 GRAMS TUBE TP SCH (09:38)
[2020-10-09] MEDS: FAMOTIDINE 40 MG/5 ML ORAL SUSPENSION NGT SCH (09:38)
[2020-10-09] MEDS: NYSTATIN 100,000 UNIT/GM TOPICAL CREAM 15 GM TUBE TP SCH ×2 (09:38→22:39)
[2020-10-09] MEDS: CLOTRIMAZOLE 1% CREAM 15 GM TUBE TP SCH (09:38)
[2020-10-09] MEDS ORDERED: PT OWN MED DRAWER 7, Y5N ONE ×2 (14:30→22:21)
[2020-10-09] MEDS: DEXTROSE 5%-NORMAL SALINE 1,000 ML IV SCH (22:37)
[2020-10-09] MEDS: ATORVASTATIN CA 10 MG TABLET (FP) GT SCH (22:39)
[2020-10-10] MEDS: LORazepam 2 MG/ML SDV VIAL IVPUSH SCH ×4 (02:43→21:25)
[2020-10-10] MEDS: HEPARIN NA (PORCINE) 5,000 UNITS/ML 1ML VIAL SQ SCH ×3 (06:15→21:22)
[2020-10-10] MEDS: GABAPENTIN 250 MG/5 ML ORAL SOLUTION, 470 ML BOTTLE GT SCH ×3 (06:15→21:24)
[2020-10-10] MEDS: INSULIN SLIDING SCALE (NOVOLOG) 1 VIAL SQ SCH ×4 (06:16→21:32)
[2020-10-10] MEDS: INSULIN (LEVEMIR) 100 UNITS/ML UNITS SQ SCH ×2 (06:16→21:32)
[2020-10-10] MEDS: BETHANECHOL CHLORIDE 25 MG TABLET GT SCH ×3 (06:16→21:24)
[2020-10-10] MEDS: FOLIC ACID 1 MG TABLET (FP) GT SCH (10:30)
[2020-10-10] MEDS: FERROUS SO4 300 MG/5 ML ORAL SOLN UNIT DOSE CUPS GT SCH (10:30)
[2020-10-10] MEDS: amLODIPine BESYLATE 10 MG TABLET (FP) GT SCH (10:30)
[2020-10-10] MEDS: CYANOCOBALAMIN 1,000 MCG TABLET (FP) PO SCH (10:30)
[2020-10-10] MEDS: THIAMINE HCL 100 MG TABLET (FP) NGT SCH (10:30)
[2020-10-10] MEDS: METOPROLOL TARTRATE 50 MG TABLET (FP) GT SCH ×2 (10:30→21:22)
[2020-10-10] MEDS: AMINO ACIDS/PROTEIN HYDROLYS 30 ML LIQUID.PKT GT SCH ×2 (10:30→21:24)
[2020-10-10] MEDS: COLLAGENASE CLOSTRIDIUM HIST. 30 GRAMS TUBE TP SCH (10:31)
[2020-10-10] MEDS: MAGNESIUM OXIDE 400 MG TABLET (FP) GT SCH ×2 (10:31→21:22)
[2020-10-10] MEDS: FAMOTIDINE 40 MG/5 ML ORAL SUSPENSION NGT SCH (10:31)
[2020-10-10] MEDS: NYSTATIN 100,000 UNIT/GM TOPICAL CREAM 15 GM TUBE TP SCH ×2 (10:31→21:24)
[2020-10-10] MEDS: DEXAMETHASONE SOD PHOSPHATE 4 MG/1 ML VIAL IVPUSH SCH (10:31)
[2020-10-10] MEDS: CLOTRIMAZOLE 1% CREAM 15 GM TUBE TP SCH (10:31)
[2020-10-10] MEDS ORDERED: PT OWN MED DRAWER 7, Y5N ONE ×3 (10:33→21:16)
[2020-10-10] MEDS: DEXTROSE 5%-NORMAL SALINE 1,000 ML IV SCH ×2 (13:14→20:43)
[2020-10-10 17:26] LABS: BASO % 0.3 % (0-2.0); EOS % 0.2 % (0-4.5); HEMOGLOBIN 8.1 GM/dL (10.7-15.3); LYMPH % 7.1 % (8-40); MCH 30.3 pg (25.7-33.7); MCHC 33.7 g/dl (32.0-36.0); MEAN CELL VOLUME 89.9 fl (80-96); MEAN PLT VOLUME 8.5 fl (7.5-11.1); MONO % 5.4 % (3.8-10.2); PLATELET COUNT 361 K/MM3 (134-434); RBC 2.67 M/mm3 (3.60-5.2); RDW 15.7 % (11.6-15.6); WHITE BLOOD COUNT 6.7 K/mm3 (4.0-10.0)
[2020-10-10 17:36] LABS: CHLORIDE 108 mmol/L (98-107); SODIUM 144 mmol/L (136-145)
[2020-10-10 17:37] LABS: CALCIUM 7.7 mg/dL (8.5-10.1)
[2020-10-10 17:38] LABS: CO2 30 mmol/L (21-32); GLUCOSE,RANDOM 228 mg/dL (74-106)
[2020-10-10 17:41] LABS: CREATININE 0.4 mg/dL (0.55-1.3)
[2020-10-10 17:49] LABS: ANION GAP 7 MMOL/L (8-16)
[2020-10-10] MEDS ORDERED: POTASSIUM CHLORIDE ORAL LIQUID 20 MEQ/15 ML PO ONE (18:52)
[2020-10-10] MEDS: KCL 10 MEQ IVPB 10 MEQ/100 ML INFUS.BAG IVPB SCH ×2 (21:02→23:28)
[2020-10-10] MEDS: ATORVASTATIN CA 10 MG TABLET (FP) GT SCH (21:22)
[2020-10-11 01:09] LABS: CALCIUM 7.4 mg/dL (8.5-10.1)
[2020-10-11 01:10] LABS: BLOOD UREA NITROGEN 18.2 mg/dL (7-18)
[2020-10-11 01:13] LABS: CREATININE 0.4 mg/dL (0.55-1.3)
[2020-10-11] MEDS: KCL 10 MEQ IVPB 10 MEQ/100 ML INFUS.BAG IVPB SCH (01:13)
[2020-10-11] MEDS: DEXTROSE 5%-NORMAL SALINE 1,000 ML IV SCH ×2 (01:14→05:42)
[2020-10-11] MEDS: LORazepam 2 MG/ML SDV VIAL IVPUSH SCH ×3 (04:23→14:55)
[2020-10-11] MEDS: HEPARIN NA (PORCINE) 5,000 UNITS/ML 1ML VIAL SQ SCH ×2 (05:40→14:55)
[2020-10-11] MEDS: BETHANECHOL CHLORIDE 25 MG TABLET GT SCH ×2 (05:41→14:55)
[2020-10-11] MEDS: GABAPENTIN 250 MG/5 ML ORAL SOLUTION, 470 ML BOTTLE GT SCH ×2 (05:41→14:55)
[2020-10-11] MEDS: INSULIN (LEVEMIR) 100 UNITS/ML UNITS SQ SCH (06:13)
[2020-10-11] MEDS: INSULIN SLIDING SCALE (NOVOLOG) 1 VIAL SQ SCH ×2 (06:14→12:21)
[2020-10-11 08:46] LABS: BASO % 0.3 % (0-2.0); EOS % 2.4 % (0-4.5); HEMATOCRIT 24.1 % (32.4-45.2); HEMOGLOBIN 8.2 GM/dL (10.7-15.3); LYMPH % 8.7 % (8-40); MCH 30.6 pg (25.7-33.7); MCHC 34.1 g/dl (32.0-36.0); MEAN CELL VOLUME 89.7 fl (80-96); MEAN PLT VOLUME 8.2 fl (7.5-11.1); MONO % 8.4 % (3.8-10.2); NEUT % 80.2 % (42.8-82.8); PLATELET COUNT 395 K/MM3 (134-434); RBC 2.68 M/mm3 (3.60-5.2); WHITE BLOOD COUNT 8.3 K/mm3 (4.0-10.0)
[2020-10-11 09:22] LABS: BLOOD UREA NITROGEN 16.9 mg/dL (7-18); CALCIUM 7.7 mg/dL (8.5-10.1)
[2020-10-11 09:25] LABS: CREATININE 0.5 mg/dL (0.55-1.3)
[2020-10-11] MEDS ORDERED: PT OWN MED DRAWER 7, Y5N ONE (09:29)
[2020-10-11] MEDS: FERROUS SO4 300 MG/5 ML ORAL SOLN UNIT DOSE CUPS GT SCH (09:40)
[2020-10-11] MEDS: DEXAMETHASONE SOD PHOSPHATE 4 MG/1 ML VIAL IVPUSH SCH (09:40)
[2020-10-11] MEDS: METOPROLOL TARTRATE 50 MG TABLET (FP) GT SCH (09:41)
[2020-10-11] MEDS: CLOTRIMAZOLE 1% CREAM 15 GM TUBE TP SCH (09:41)
[2020-10-11] MEDS: amLODIPine BESYLATE 10 MG TABLET (FP) GT SCH (09:41)
[2020-10-11] MEDS: FOLIC ACID 1 MG TABLET (FP) GT SCH (09:41)
[2020-10-11] MEDS: NYSTATIN 100,000 UNIT/GM TOPICAL CREAM 15 GM TUBE TP SCH (09:41)
[2020-10-11] MEDS: MAGNESIUM OXIDE 400 MG TABLET (FP) GT SCH (09:41)
[2020-10-11] MEDS: CYANOCOBALAMIN 1,000 MCG TABLET (FP) PO SCH (09:43)
[2020-10-11] MEDS: AMINO ACIDS/PROTEIN HYDROLYS 30 ML LIQUID.PKT GT SCH (09:43)
[2020-10-11] MEDS: THIAMINE HCL 100 MG TABLET (FP) NGT SCH (09:43)
[2020-10-11] MEDS: COLLAGENASE CLOSTRIDIUM HIST. 30 GRAMS TUBE TP SCH (09:43)
[2020-10-11] MEDS: FAMOTIDINE 40 MG/5 ML ORAL SUSPENSION NGT SCH (09:43)
[2020-10-11 09:44] LABS: PHOSPHOROUS 2.5 mg/dL (2.5-4.9)
[2020-10-11] MEDS ORDERED: MAGNESIUM 2GM/50ML STERILE WATER IVPB IVPB ONE ×2 (10:15→14:30)
[2020-10-11] MEDS ORDERED: METOPROLOL TARTRATE 50 MG TABLET (FP) GT SCH (10:28)
[2020-10-11] MEDS ORDERED: POTASSIUM PHOSPHATE 30 MM in SODIUM CHLORIDE 500 ML IVPB ONE (11:00)
[2020-10-11 14:43] VITALS: BP 127/77; PULSE 97; TEMP 99.2
[2020-10-11] MEDS ORDERED: POTASSIUM CHLORIDE ORAL LIQUID 20 MEQ/15 ML PO ONE (15:00)
== END 2020-10-11 15:46 | DRG 4 ==
LOC: JER 11:33 → JERBED 16:37 → JICU 19:08 → J4S 09-09 21:19 → JICU 09-14 03:24 → J5S 10-06 23:11
PROVIDERS: ADMIT Family Medicine
PROC: XW033H5 Introduction of Tocilizumab into Peripheral Vein, Percutaneous Approach, New Technology Group 5 (ICD-10-PCS; 2020-09-07)
PROC: XW033E5 Introduction of Remdesivir Anti-infective into Peripheral Vein, Percutaneous Approach, New Technology Group 5 (ICD-10-PCS; 2020-09-07)
PROC: 30233N1 Transfusion of Nonautologous Red Blood Cells into Peripheral Vein, Percutaneous Approach (ICD-10-PCS; 2020-09-07)
PROC: 0DH63UZ Insertion of Feeding Device into Stomach, Percutaneous Approach (ICD-10-PCS; 2020-09-07)
PROC: 5A1955Z Respiratory Ventilation, Greater than 96 Consecutive Hours (ICD-10-PCS; 2020-09-14)
PROC: 0BH17EZ Insertion of Endotracheal Airway into Trachea, Via Natural or Artificial Opening (ICD-10-PCS; 2020-09-14)
PROC: 05HM33Z Insertion of Infusion Device into Right Internal Jugular Vein, Percutaneous Approach (ICD-10-PCS; 2020-09-14)
PROC: B543ZZA Ultrasonography of Right Jugular Veins, Guidance (ICD-10-PCS; 2020-09-14)
PROC: 05HN33Z Insertion of Infusion Device into Left Internal Jugular Vein, Percutaneous Approach (ICD-10-PCS; 2020-09-23)
PROC: B544ZZA Ultrasonography of Left Jugular Veins, Guidance (ICD-10-PCS; 2020-09-23)
PROC: 05HM33Z Insertion of Infusion Device into Right Internal Jugular Vein, Percutaneous Approach (ICD-10-PCS; 2020-10-01)
PROC: B543ZZA Ultrasonography of Right Jugular Veins, Guidance (ICD-10-PCS; 2020-10-01)
PROC: 0BJ08ZZ Inspection of Tracheobronchial Tree, Via Natural or Artificial Opening Endoscopic (ICD-10-PCS; 2020-10-04)
PROC: 0B113F4 Bypass Trachea to Cutaneous with Tracheostomy Device, Percutaneous Approach (ICD-10-PCS; principal; 2020-10-04 13:30)
DX: A41.51 Sepsis due to Escherichia coli [E. coli] (principal); L89.153 Pressure ulcer of sacral region, stage 3; J96.01 Acute respiratory failure with hypoxia; U07.1 COVID-19; J15.5 Pneumonia due to Escherichia coli; R65.21 Severe sepsis with septic shock; I50.22 Chronic systolic (congestive) heart failure; N39.0 Urinary tract infection, site not specified; I42.8 Other cardiomyopathies; N17.9 Acute kidney failure, unspecified; I48.20 Chronic atrial fibrillation, unspecified; E87.0 Hyperosmolality and hypernatremia; Z16.12 Extended spectrum beta lactamase (ESBL) resistance; B37.0 Candidal stomatitis; I10 Essential (primary) hypertension; D64.9 Anemia, unspecified; N18.9 Chronic kidney disease, unspecified; K70.0 Alcoholic fatty liver; L89.152 Pressure ulcer of sacral region, stage 2; E87.6 Hypokalemia; B96.20 Unspecified Escherichia coli [E. coli] as the cause of diseases classified elsewhere; E83.42 Hypomagnesemia; D69.6 Thrombocytopenia, unspecified; E78.5 Hyperlipidemia, unspecified; R19.7 Diarrhea, unspecified; R31.9 Hematuria, unspecified; E87.70 Fluid overload, unspecified; D72.829 Elevated white blood cell count, unspecified; E11.65 Type 2 diabetes mellitus with hyperglycemia; I95.9 Hypotension, unspecified
CPT/HCPCS: 36415; 36430; 36600; 49440; 70450-TC; 71045-TC-FY; 74018-TC-FY; 80048; 80053; 81003; 82140; 82248; 82272; 82550; 82553; 82607; 82728; 82803; 82962; 83010; 83540; 83550; 83605; 83615; 83735; 84100; 84443; 84466; 84484; 85025; 85027; 85379; 85610; 85651; 85730; 86022; 86140; 86480; 86704; 86706; 86707; 86708; 86709; 86769; 86780; 86850; 86900; 86901; 86922; 87040; 87070; 87086; 87186; 87205; 87324; 87340; 87449; 87522; 87804; 93005; 93010; 94002; 94660; 99285-25; C9399; C9803; J0131; J1100; J1644; J3262; P9058; U0003; U0005